=== PATIENT | male | born 1970 | race Caucasian/White ===

== ENCOUNTER 2017-10-18 22:07 | Inpatient (IN) | payer BC, OTHER ==
[~2017-10-18] VITALS: Ht 193 cm; Wt 118.2 kg
[2017-10-18] MEDS ORDERED: SODIUM CHLORIDE 0.9% 1000ML 1,000 ML IV SCH (22:14)
--- NOTE | 2017-10-18 22:28 | DIAGNOSTIC IMAGING REPORT ---
CT OF THE HEAD WITHOUT CONTRAST CLINICAL HISTORY: Stroke COMPARISON STUDY: No previous studies for comparison. CT DOSE: 1565.49 mGycm TECHNIQUE: Helical axial images of the head were obtained without IV contrast. Automated exposure control was utilized for the study. A dose lowering technique was utilized adhering to the principles of ALARA. FINDINGS: No acute intracranial hemorrhage, midline shift or mass effect is present. Ventricular system is normal. Basilar cisterns are patent. There are no extra-axial collections. Parr-white differentiation is maintained. There are no findings to suggest acute dural sinus thrombosis or acute territorial infarct. There are a few possible subtle white matter hypodensities. No calvarial abnormalities are present. Visualized portions of the sinuses and mastoid air cells are clear. IMPRESSION: 1. No acute intracranial findings. 2. A few small nonspecific white matter hypodensities. Electronically signed by: Ronnie Goddard M.D. 10/18/2017 10:27 PM Dictated Date/Time: 10/18/2017 10:24 PM
[2017-10-18 22:46] LABS: BASO % 0.3 %; BASO ABS # 0.04 K/uL (0-0.2); EOS % 1.1 %; EOS ABS # 0.14 K/uL (0-0.5); HEMATOCRIT 43.3 % (42-52); HEMOGLOBIN 15.3 g/dL (14.0-18.0); IG# 0.05 K/uL (0.00-0.02); LYMPH % 13.1 %; LYMPH ABS # 1.71 K/uL (1.2-3.4); MEAN CELL VOLUME 89.3 fL (80-100); MEAN CORPUSCULAR HEMOGLOBIN 31.5 pg (25-34); MEAN CORPUSCULAR HGB CONC 35.3 g/dl (32-36); MEAN PLATELET VOLUME 9.7 fL (7.4-10.4); MONO % 8.2 %; MONO ABS # 1.07 K/uL (0.11-0.59); NEUT % 76.9 %; NEUT ABS # 10.05 K/uL (1.4-6.5); PLATELET COUNT 263 K/uL (130-400); RED CELL DISTRIBUTION WIDTH CV 12.5 % (11.5-14.5); RED CELL DISTRIBUTION WIDTH SD 39.9 fL (36.4-46.3); WHITE BLOOD COUNT 13.06 K/uL (4.8-10.8)
[2017-10-18 22:57] LABS: PTT PATIENT 25.7 SECONDS (21.0-31.0)
[2017-10-18 23:08] LABS: BLOOD UREA NITROGEN 13 mg/dl (7-18); CALCIUM 8.9 mg/dl (8.5-10.1); CARBON DIOXIDE 25 mmol/L (21-32); CREATININE 0.96 mg/dl (0.60-1.40); GLUCOSE 138 mg/dl (70-99); POTASSIUM 3.4 mmol/L (3.5-5.1); SODIUM 139 mmol/L (136-145)
[2017-10-18] MEDS ORDERED: ASPIRIN 81 MG CHEW PO STA (23:09)
[2017-10-18 23:13] LABS: CKMB < 0.5 ng/ml (0.5-3.6)
[2017-10-18] MEDS ORDERED: MONT1TAB3 PO (23:40)
[2017-10-18] MEDS ORDERED: ATOR10TA82 PO (23:40)
[2017-10-18] MEDS ORDERED: CHOL1000 PO (23:41)
[2017-10-18] MEDS ORDERED: BIOF500T PO (23:41)
[2017-10-18] MEDS ORDERED: COEN75CA PO (23:42)
[2017-10-18] MEDS ORDERED: CLR10 PO (23:42)
[2017-10-18] MEDS ORDERED: ASPI81TA28 PO (23:42)
[2017-10-18] MEDS ORDERED: B-COTAB18 PO (23:42)
[2017-10-18] MEDS ORDERED: NIAC500T11 PO (23:42)
[2017-10-19] VITALS (10 sets, daily range): BP systolic 128–167; BP diastolic 11–110; PULSE 75–93; TEMP 36.5–37.3; O2SAT 94–97; Ht 193 cm; Wt 118.2 kg
[2017-10-19] MEDS ORDERED: ACETAMINOPHEN 325 MG TAB PO PRN (00:15)
[2017-10-19] MEDS ORDERED: ONDANSETRON INJ 2 MG/ML 2 ML VIAL IV PRN (00:15)
[2017-10-19] MEDS ORDERED: ALUMINUM/MAGNESIUM/SIMETH (MAALOX MAX) 30 ML UDC PO PRN (00:15)
[2017-10-19] MEDS ORDERED: ZOLPIDEM TARTRATE 5 MG TAB PO PRN (00:15)
[2017-10-19] MEDS ORDERED: NITROGLYCERIN 0.4 MG SL PER TAB CHARGE SL PRN (00:15)
[2017-10-19] MEDS ORDERED: MAGNESIUM HYDROXIDE SUSP 30 ML UDC PO PRN (00:15)
[2017-10-19] MEDS ORDERED: POLYETHYLENE (MIRALAX) 17 GM PACK PO PRN (00:15)
[2017-10-19] MEDS ORDERED: PHARMACIST DISCHARGE MED REC CONSULT PRN (00:15)
[2017-10-19] MEDS ORDERED: CLOPIDOGREL BISULFATE 75 MG TAB PO STA (00:31)
[2017-10-19] MEDS ORDERED: OPTIRAY 320 IV PRN (00:45)
[2017-10-19] MEDS ORDERED: LORAZEPAM 2 MG/ML 1 ML VIAL IV PRN ×3 (00:45→10:30)
--- NOTE | 2017-10-19 00:46 | History and Physical ---
History & Physical Date & Time of Service: Oct 19, 2017 at 00:14 Chief Complaint: Stroke Alert Primary Care Physician: Aleksey Dos Santos M.D. History of Present Illness Source: patient, family 47M with a PMHx of HLD and HTN and a FMHx of stroke and afib p/w a 15 minute episode of aphagia & right arm and right face/mouth paralysis that was witnessed and confirmed by his who is sitting at bedside in the ER. Patient had these acute symptoms in the setting of right facial chills/heat for the past two weeks. Symptoms spontaneously resolved after 15 min after the patient vigorously shook his right arm with his left arm. Patient has been getting right sided facial flushing/ chills for the past two weeks - mostly at night when he is resting. Pt also has been complaining of SOB on exertion over the past two weeks. Pt notes that he gets extreme clausterphobia and cannot sit still in an MRI without extreme sedation. PMHx: HLD (Lipitor & ASA x 7 years), measure BP at home to be 140/90 on average. FMHX: GF of a stroke and DE in his 50s, dad has Afib. 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 - Drink 1 beer per day ( in room states that it isn't more than that). ROS: Denies any recent tick bites. Past Medical/Surgical History Medical Problems: (1) TIA (transient ischemic attack) Family History Family history of premature ASCVD in 2 family members, including father. Social History Smoking Status: Never Smoker Smokeless Tobacco Use: No Alcohol Use: none Drug Use: none Occupational Status: employed Immunizations History of Influenza Vaccine: Unknown History of Tetanus Vaccine?: Unknown History of Pneumococcal: Unknown History of Hepatitis B Vaccine: Unknown (archana) Allergies Coded Allergies: Sulfa Antibiotics (Verified Allergy, Intermediate, RASH, 10/18/17) Home Medications Scheduled Aspirin (Aspirin Ec), 81 MG PO DAILY Atorvastatin (Lipitor), 10 MG PO DAILY B-Complex Vitamins (Vitamin B Complex), 1 TAB PO DAILY Bioflavonoid Products (Aditi-C), 1 TAB PO DAILY Cholecalciferol (Vitamin D3), 1 TAB PO DAILY Coenzyme Q10 (Ubidecarenone) (Co Q-10), 1 CAP PO DAILY Loratadine (Claritin), 10 MG PO DAILY Montelukast Sodium (Singulair), 10 MG PO DAILY Niacin (Niacin), 2 TABS PO DAILY Review of Systems Constitutional: No fever, No chills, No weight loss, No weakness Respiratory: No cough, No sputum, No wheezing, No shortness of breath, No dyspnea on exertion Cardiovascular: No chest pain Abdomen: No pain, No nausea, No vomiting, No diarrhea, No constipation Musculoskeletal: No joint pain Genitourinary - Male: No hematuria Neurologic: No memory loss Psychiatric: No depression symptoms Endocrine: No fatigue Integumentary: No rash Physical Exam Vital Signs Date Time Temp Pulse Resp B/P (MAP) Pulse Ox O2 Delivery O2 Flow Rate FiO2 10/18/17 23:15 83 10/18/17 23:14 89 18 152/97 95 Room Air 10/18/17 22:42 89 20 164/107 97 Room Air 10/18/17 22:33 94 10/18/17 22:32 87 15 163/109 97 Room Air 10/18/17 22:27 98 Room Air 10/18/17 22:15 37.2 85 15 163/109 98 Room Air General Appearance: WD/WN, no apparent distress, + obese Head: normocephalic, atraumatic Eyes: normal inspection, PERRL, EOMI ENT: normal ENT inspection, TMs normal Neck: supple Respiratory/Chest: chest non-tender, lungs clear, normal breath sounds, no respiratory distress, no accessory muscle use Cardiovascular: regular rate, rhythm, no edema, no gallop, no JVD, no murmur, normal peripheral pulses Abdomen/GI: normal bowel sounds, non tender, soft, no organomegaly, no pulsatile mass Back: normal inspection, no CVA tenderness Extremities/Musculoskelatal: normal inspection, normal capillary refill Neurologic/Psych: 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, no motor/sensory deficits, alert, normal mood/affect, normal reflexes, oriented x 3 Skin: warm/dry, no rash Diagnostics Laboratory Results Results Past 24 Hours Test 10/18/17 21:54 10/19/17 00:03 Range/Units White Blood Count 13.06 4.8-10.8 K/uL Red Blood Count 4.85 4.7-6.1 M/uL Hemoglobin 15.3 14.0-18.0 g/dL Hematocrit 43.3 42-52 % Mean Corpuscular Volume 89.3 80-100 fL Mean Corpuscular Hemoglobin 31.5 25-34 pg Mean Corpuscular Hemoglobin Concent 35.3 32-36 g/dl Platelet Count 263 130-400 K/uL Mean Platelet Volume 9.7 7.4-10.4 fL Neutrophils (%) (Auto) 76.9 % Lymphocytes (%) (Auto) 13.1 % Monocytes (%) (Auto) 8.2 % Eosinophils (%) (Auto) 1.1 % Basophils (%) (Auto) 0.3 % Neutrophils # (Auto) 10.05 1.4-6.5 K/uL Lymphocytes # (Auto) 1.71 1.2-3.4 K/uL Monocytes # (Auto) 1.07 0.11-0.59 K/uL Eosinophils # (Auto) 0.14 0-0.5 K/uL Basophils # (Auto) 0.04 0-0.2 K/uL RDW Standard Deviation 39.9 36.4-46.3 fL RDW Coefficient of Variation 12.5 11.5-14.5 % Immature Granulocyte % (Auto) 0.4 % Immature Granulocyte # (Auto) 0.05 0.00-0.02 K/uL Prothrombin Time 10.6 9.0-12.0 SECONDS Prothromb Time International Ratio 1.0 0.9-1.1 Activated Partial Thromboplast Time 25.7 21.0-31.0 SECONDS Partial Thromboplastin Ratio 1.0 Sodium Level 139 136-145 mmol/L Potassium Level 3.4 3.5-5.1 mmol/L Chloride Level 103 98-107 mmol/L Carbon Dioxide Level 25 21-32 mmol/L Anion Gap 10.0 3-11 mmol/L Blood Urea Nitrogen 13 7-18 mg/dl Creatinine 0.96 0.60-1.40 mg/dl Est Creatinine Clear Calc Drug Dose 137.4 ml/min Estimated GFR () 109.4 Estimated GFR (Non- 94.4 BUN/Creatinine Ratio 13.1 10-20 Random Glucose 138 70-99 mg/dl Calcium Level 8.9 8.5-10.1 mg/dl Magnesium Level 2.1 1.8-2.4 mg/dl Total Creatine Kinase 57 39-308 U/L Creatine Kinase MB < 0.5 0.5-3.6 ng/ml Creatine Kinase MB Ratio 0-3.0 Troponin I < 0.015 0-0.045 ng/ml Diagnostic Radiology CT OF THE HEAD WITHOUT CONTRAST CLINICAL HISTORY: Stroke COMPARISON STUDY: No previous studies for comparison. CT DOSE: 1565.49 mGycm TECHNIQUE: Helical axial images of the head were obtained without IV contrast. Automated exposure control was utilized for the study. A dose lowering technique was utilized adhering to the principles of ALARA. FINDINGS: No acute intracranial hemorrhage, midline shift or mass effect is present. Ventricular system is normal. Basilar cisterns are patent. There are no extra-axial collections. Parr-white differentiation is maintained. There are no findings to suggest acute dural sinus thrombosis or acute territorial infarct. There are a few possible subtle white matter hypodensities. No calvarial abnormalities are present. Visualized portions of the sinuses and mastoid air cells are clear. IMPRESSION: 1. No acute intracranial findings. 2. A few small nonspecific white matter hypodensities. Impression Assessment and Plan 47M with a PMHx of HLD and HTN and a FMHx of stroke and afib p/w a 15 minute episode of aphasia & right arm and right face/mouth paralysis that was witnessed by his . Symptoms resolved by the time pt was in the ER. Admitted for TIA. TIA Symptoms have resolved. Per Protocol, Neurology consulted. Q4 Neuro checks. Speech eval and treat. Pt has been on ASA daily, will switch to daily Plavix. Pt cannot tolerate MRI scans, will get CT and CTA head and neck. Ativan 0.5mg IV PRN for sedation. Echocardiogram. Stroke education as per protocol. Lipid Panel and HBA1C in the AM. Continue with daily Lipitor 10mg QAM. (consider titrating upwards) Per conversation with Dr. Reid - will order Hypercoagulable workup based on pt's family history of early stroke. Will also get Lyme Titers. Elevated WBCs (Neutrophil Predominance) Unknown etiology, will monitor, likely reactive. Home Meds c/w Loratidine and Singulair QHS. DVT Proph: SCDs. Diet: Heart Healthy Dispo - Lives with , will order PT and OT per stroke protocol. Full Code Attending addendum: I have physically seen this patient, have supervised the medical residents activities, and agree with the H&P unless as otherwise noted. Assessment and Plan: TIA with symptoms resolved after 15 minutes-- The patient will be admitted to telemetry for serial cardiac enzymes, serial EKG's, cardiac rhythm monitoring and a 2-D echocardiogram with Dopplers. Order MRI of brain without contrast.. Patient is unable to tolerate significant amount of time in the MRI unit. CT angiography of head and neck. Patient has been taking aspirin 81 mg daily, and was given 324 mg chewable by the ED. Would instead change to clopidogrel 75 mg daily, with first dose tonight. Arterial hypercoagulable workup. Neurologic checks per protocol. Check a fasting lipid profile and hemoglobin A1c. Advanced Directives Existing Advance Directive: No Existing Living Will: No Existing Power of Medical Office Scheduler: No Resuscitation Status VTE Prophylaxis Will order VTE Prophylaxis: Yes Social Service Consult None Apply Resident Involvement: Resident Care Provided Care Provided: Adult Hospital Medicine
--- NOTE | 2017-10-19 00:49 | EMERGENCY ROOM VISIT NOTE ---
History Report prepared by Dariela: Jae Ramos Under the Supervision of: Dr. Matthew Pollard M.D. First contact with patient: 22:07 Chief Complaint: STROKE SYMPTOMS Stated Complaint: STROKE ALERT History of Present Illness The patient is a 47 year old male who presents to the Emergency Room for concerns over stroke-like symptoms that began 2 hours ago. Per the patient's the patient was sitting down watching a sporting event when he began to develop difficulty speaking and numbness in his right arm. The patient, who is able to communicate freely upon arrival, states that the numbness was "the worst he has ever experienced." Initially he was unsure if he was going to be able to walk down the steps secondary to weakness on his left side. The patient believes that his symptoms lasted around 5 minutes before spontaneously resolving. The patient feels back to baseline at this time. He continued to mention that for the past 2.5 weeks he has been experiencing fevers and chills. 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 A total of ten systems were reviewed and were otherwise negative. Past Medical & Surgical Medical Problems: (1) Hypertension (2) TIA (transient ischemic attack) Hypertension Family History Stroke Social History Marital Status: Housing Status: lives with significant other Current/Historical Medications Scheduled Aspirin (Aspirin Ec), 81 MG PO DAILY Atorvastatin (Lipitor), 10 MG PO DAILY B-Complex Vitamins (Vitamin B Complex), 1 TAB PO DAILY Bioflavonoid Products (Aditi-C), 1 TAB PO DAILY Cholecalciferol (Vitamin D3), 1 TAB PO DAILY Coenzyme Q10 (Ubidecarenone) (Co Q-10), 1 CAP PO DAILY Loratadine (Claritin), 10 MG PO DAILY Montelukast Sodium (Singulair), 10 MG PO DAILY Niacin (Niacin), 2 TABS PO DAILY Allergies Coded Allergies: Sulfa Antibiotics (Verified Allergy, Intermediate, RASH, 10/18/17) Physical Exam Vital Signs Date Time Temp Pulse Resp B/P (MAP) Pulse Ox O2 Delivery O2 Flow Rate FiO2 10/19/17 00:40 81 18 148/111 95 4/3/18 00:39 81 18 148/111 95 Room Air 10/18/17 23:15 83 10/18/17 23:14 89 18 152/97 95 Room Air 10/18/17 22:42 89 20 164/107 97 Room Air 10/18/17 22:33 94 10/18/17 22:32 87 15 163/109 97 Room Air 10/18/17 22:27 98 Room Air 10/18/17 22:15 37.2 85 15 163/109 98 Room Air Physical Exam Physical Exam GENERAL: HE is oriented to person, place, and time. He appears well-developed and well-nourished. He does not appear distressed. ____ HENT: Exam performed. Head: Normocephalic and atraumatic. Right Ear: External ear normal. No mastoid tenderness. Left Ear: External ear normal. No mastoid tenderness. Mouth/Throat: The oropharynx is clear and moist. No trismus in the jaw. No dental abscesses or uvula swelling. No oropharyngeal exudate or tonsillar abscesses. ____ EYES: Conjunctivae and EOM are normal. Pupils are equal, round, and reactive to light. Right eye exhibits no discharge. Left eye exhibits no discharge. No scleral icterus. ____ NECK: Normal range of motion. Neck supple. No JVD present. No spinous process tenderness present. No carotid bruit present. No rigidity. No tracheal deviation and normal range of motion present. No Brudzinski's sign and no Kernig 's sign noted. ____ CV: Normal rate, regular rhythm, normal heart sounds and intact distal pulses. There is no peripheral edema. Palpable radial pulses bue. ____ PULM/CHEST: Effort normal and breath sounds normal. No respiratory distress. No stridor. He has no wheezes. He has no rales. Chest Wall: He exhibits no tenderness. ____ ABD: The abdomen is soft. Bowel sounds are normal. He has no distension. No mass is present. There is no tenderness. There is no rebound, no guarding, no Kaplan's sign and no tenderness at McBurney's point. Rovsig negative MUSC/SKEL: Normal range of motion. There is no peripheral edema, tenderness or deformity. LYMPH: No cervical adenopathy. ____ NEURO: He is alert and oriented to person, place, and time. He has normal strength. No cranial nerve deficit or sensory deficit. Coordination and gait normal. GCS eye subscore is 4. GCS verbal subscore is 5. GCS motor subscore is 6. Cerebellar tests wnl. NIHSS: 0 ____ SKIN: Skin is warm and dry. He is not diaphoretic. ____ PSYCH: He has a normal mood and affect. His behavior is normal. Judgment and thought content normal. Medical Decision & Procedures ER Provider Diagnostic Interpretation: Radiology results as stated below per my review and radiologist interpretation: CT OF THE HEAD WITHOUT CONTRAST CLINICAL HISTORY: Stroke COMPARISON STUDY: No previous studies for comparison. CT DOSE: 1565.49 mGycm TECHNIQUE: Helical axial images of the head were obtained without IV contrast. Automated exposure control was utilized for the study. A dose lowering technique was utilized adhering to the principles of ALARA. FINDINGS: No acute intracranial hemorrhage, midline shift or mass effect is present. Ventricular system is normal. Basilar cisterns are patent. There are no extra-axial collections. Parr-white differentiation is maintained. There are no findings to suggest acute dural sinus thrombosis or acute territorial infarct. There are a few possible subtle white matter hypodensities. No calvarial abnormalities are present. Visualized portions of the sinuses and mastoid air cells are clear. IMPRESSION: 1. No acute intracranial findings. 2. A few small nonspecific white matter hypodensities. Electronically signed by: Ronnie Goddard M.D. 10/18/2017 10:27 PM Dictated Date/Time: 10/18/2017 10:24 PM Laboratory Results 10/18/17 21:54 Red Blood Count 4.85, Mean Corpuscular Volume 89.3, Mean Corpuscular Hemoglobin 31.5, Mean Corpuscular Hemoglobin Concent 35.3, Mean Platelet Volume 9.7, Neutrophils (%) (Auto) 76.9, Lymphocytes (%) (Auto) 13.1, Monocytes (%) (Auto) 8.2, Eosinophils (%) (Auto) 1.1, Basophils (%) (Auto) 0.3, Neutrophils # (Auto) 10.05, Lymphocytes # (Auto) 1.71, Monocytes # (Auto) 1.07, Eosinophils # (Auto) 0.14, Basophils # (Auto) 0.04 10/18/17 21:54 Test 10/18/17 21:54 10/19/17 00:24 10/19/17 00:40 White Blood Count 13.06 K/uL (4.8-10.8) Red Blood Count 4.85 M/uL (4.7-6.1) Hemoglobin 15.3 g/dL (14.0-18.0) Hematocrit 43.3 % (42-52) Mean Corpuscular Volume 89.3 fL (80-100) Mean Corpuscular Hemoglobin 31.5 pg (25-34) Mean Corpuscular Hemoglobin Concent 35.3 g/dl (32-36) Platelet Count 263 K/uL (130-400) Mean Platelet Volume 9.7 fL (7.4-10.4) Neutrophils (%) (Auto) 76.9 % Lymphocytes (%) (Auto) 13.1 % Monocytes (%) (Auto) 8.2 % Eosinophils (%) (Auto) 1.1 % Basophils (%) (Auto) 0.3 % Neutrophils # (Auto) 10.05 K/uL (1.4-6.5) Lymphocytes # (Auto) 1.71 K/uL (1.2-3.4) Monocytes # (Auto) 1.07 K/uL (0.11-0.59) Eosinophils # (Auto) 0.14 K/uL (0-0.5) Basophils # (Auto) 0.04 K/uL (0-0.2) RDW Standard Deviation 39.9 fL (36.4-46.3) RDW Coefficient of Variation 12.5 % (11.5-14.5) Immature Granulocyte % (Auto) 0.4 % Immature Granulocyte # (Auto) 0.05 K/uL (0.00-0.02) Prothrombin Time 10.6 SECONDS (9.0-12.0) Prothromb Time International Ratio 1.0 (0.9-1.1) Activated Partial Thromboplast Time 25.7 SECONDS (21.0-31.0) Partial Thromboplastin Ratio 1.0 Anion Gap 10.0 mmol/L (3-11) Est Creatinine Clear Calc Drug Dose 137.4 ml/min Estimated GFR () 109.4 Estimated GFR (Non- 94.4 BUN/Creatinine Ratio 13.1 (10-20) Calcium Level 8.9 mg/dl (8.5-10.1) Magnesium Level 2.1 mg/dl (1.8-2.4) Total Creatine Kinase 57 U/L (39-308) Creatine Kinase MB < 0.5 ng/ml (0.5-3.6) Creatine Kinase MB Ratio (0-3.0) Troponin I < 0.015 ng/ml (0-0.045) Laboratory results reviewed by me Medications Administered Medications (Trade) Dose Ordered Sig/Suraj Route Start Time Stop Time Status Last Admin Dose Admin Sodium Chloride 1,000 ml @ 50 mls/hr Q20H IV 10/18/17 22:14 11/17/17 22:13 10/18/17 23:02 50 MLS/HR Aspirin (Aspirin Chew) 324 mg NOW STAT PO 10/18/17 23:09 10/18/17 23:10 DC 10/18/17 23:13 324 MG Clopidogrel Bisulfate (plAVix TAB) 75 mg NOW STAT PO 10/19/17 00:31 10/19/17 00:32 DC 10/19/17 00:45 75 MG ECG Per My Interpretation Indication: altered mental status, weakness, other (Stroke-like ) Rate (beats per minute): 88 Rhythm: sinus rhythm Findings: other ([place], QRS, QTC within normal limits. no ASHLI/STD) Change: REPEAT EKG SHOWS: sinus rhythm at 89 bpm. QRS, QTC, [place] within normal limits, no ASHLI/STD ED Course 2219: Call was taken from the field that expressed that the patient was resting 2 hours ago when he developed difficulty speaking and right sided weakness and numbness. His symptoms have now improved per EMS. Given the aquity of his symptoms and the fact that he was still in the window for TPA, a CODE STROKE ALERT was called and initiated in the field. The patient was taken straight to CT scan upon arrival to the department. His Blood Glucose was stable in the field per EMS. 2225: The patient was evaluated in room B1. A complete history and physical exam was performed. His NIH stroke scale is 0 at this time. 2259: I consulted Neurology about the patient at this time. I discussed with the TELESTROKE Physician Dr. Perry. He states that since the patient's symptoms are resolved, and two NIH stroke scales of 0 he does not need the patient feels to be evaluated via TELESTROKE. He suggests giving Aspirin 324 mg and ordering MRI/MRA in the morning along with an Echo. He suggests admitting to the hospitalist service. 2309: Ordered Aspirin 324 mg PO. 2335: I discussed the case with Dr. Rohan HEADLEY Hospitalist. He will evaluate the patient for further treatment. Medical Decision 2218: Call was taken from the field that expressed that the patient was resting 2 hours ago when he developed difficulty speaking and right sided weakness and numbness. His symptoms have now improved per EMS. Given the aquity of his symptoms and the fact that he was still in the window for TPA, a CODE STROKE ALERT was called and initiated in the field. The patient was taken straight to CT scan upon arrival to the department. His Blood Glucose was stable in the field per EMS. 5: The patient was evaluated in room B1. A complete history and physical exam was performed. His NIH stroke scale is 0 at this time. 225: I consulted Neurology about the patient at this time. I discussed with the TELESTROKE Physician Dr. Perry. He states that since the patient's symptoms are resolved, and two NIH stroke scales of 0 he does not need the patient feels to be evaluated via TELESTROKE. He suggests giving Aspirin 324 mg and ordering MRI/MRA in the morning along with an Echo. He suggests admitting to the hospitalist service. 2309: Ordered Aspirin 324 mg PO. 2335: I discussed the case with Dr. Rohan HEADLEY Hospitalist. He will evaluate the patient for further treatment. Medication Reconcilliation Current Medication List: was personally reviewed by me Blood Pressure Screening Patient's blood pressure: Elevated blood pressure Referred to hospitalist. Consults Time Called: 2314 Consulting Physician: Dr. Rohan HEADLEY Hospitalist Returned Call: [phone] I discussed the case with Dr. Rohan HEADLEY Hospitalist. He will evaluate the patient for further treatment. Additional Consults: Time Called: 2258 Consulted Physician: Dr. Perry - TELESTROKE NEUROLOGY Returned Call: [phone] Additional Comments: I consulted Neurology about the patient at this time. I discussed with the TELESTROKE Physician Dr. Perry. He states that since the patient's symptoms are resolved, and two NIH stroke scales of 0 he does not need the patient feels to be evaluated via TELESTROKE. He suggests giving Aspirin 324 mg and ordering MRI/ MRA in the morning along with an Echo. He suggests admitting to the hospitalist service. Impression Primary Impression: TIA (transient ischemic attack) Critical Care I have personally spent greater than 61 minutes of critical care time in the direct management of this patient. This includes bedside care, interpretation of diagnostic studies, and testing, discussion with consultants, patient, and family members, and other required patient management activities. This 61 minutes is in excess of all separately billable procedures. Scribe Attestation The scribe's documentation has been prepared under my direction and personally reviewed by me in its entirety. I confirm that the note above accurately reflects all work, treatment, procedures, and medical decision making performed by me. The chart was completed utilizing [email or web address] Speech voice recognition software. Grammatical errors, random word insertions, pronoun errors, and incomplete sentences are an occasional consequence of this system due to software limitations, ambient noise, and hardware issues. Any formal questions or concerns about the content, text, or information contained within the body of this dictation should be directly addressed to the physician for clarification. Departure Information Dispostion Being Evaluated By Hospitalist Referrals No Doctor, Assigned (PCP) Patient Instructions My [facility] Problem Qualifiers Primary Impression: TIA (transient ischemic attack) Transient cerebral ischemia type: unspecified Qualified Codes: G45.9 - Transient cerebral ischemic attack, unspecified
[2017-10-19] MEDS ORDERED: IV FLUIDS COMPLETED PRN (04:30)
--- NOTE | 2017-10-19 06:45 | DIAGNOSTIC IMAGING REPORT ---
CT HEAD ANGIO WITH CONTRAST CLINICAL HISTORY: Dizziness, right-sided numbness, slurred speech. TECHNIQUE: CT angiography of the head was performed in a dynamic helical fashion during intravenous administration of 119 cc of Optiray 320. A dose lowering technique was utilized adhering to the principles of ALARA. MIP imaging was performed CT DOSE: COMPARISON STUDY: Noncontrast head CT performed October 18, 2017 FINDINGS: There are no lesion suspicious for aneurysm. There are no major intracranial branch occlusions. The dural venous sinuses appear patent. There is max or sinus mucosal thickening. IMPRESSION: Normal study. Electronically signed by: Trey Villarreal M.D. 10/19/2017 6:43 AM Dictated Date/Time: 10/19/2017 6:41 AM
[2017-10-19 07:15] LABS: HEMOGLOBIN A1C 5.8 % (4.5-5.6)
[2017-10-19 07:33] LABS: BASO % 0.4 %; BASO ABS # 0.04 K/uL (0-0.2); EOS ABS # 0.11 K/uL (0-0.5); HEMATOCRIT 40.5 % (42-52); HEMOGLOBIN 14.1 g/dL (14.0-18.0); IG# 0.05 K/uL (0.00-0.02); LYMPH % 10.3 %; LYMPH ABS # 1.15 K/uL (1.2-3.4); MEAN CELL VOLUME 89.2 fL (80-100); MEAN CORPUSCULAR HEMOGLOBIN 31.1 pg (25-34); MEAN CORPUSCULAR HGB CONC 34.8 g/dl (32-36); MEAN PLATELET VOLUME 9.5 fL (7.4-10.4); MONO % 7.6 %; MONO ABS # 0.85 K/uL (0.11-0.59); NEUT % 80.3 %; NEUT ABS # 8.92 K/uL (1.4-6.5); PLATELET COUNT 234 K/uL (130-400); RED CELL DISTRIBUTION WIDTH CV 12.5 % (11.5-14.5); WHITE BLOOD COUNT 11.12 K/uL (4.8-10.8)
[2017-10-19 07:48] LABS: CALCIUM 8.7 mg/dl (8.5-10.1); CREATININE 0.83 mg/dl (0.60-1.40); POTASSIUM 3.8 mmol/L (3.5-5.1)
--- NOTE | 2017-10-19 07:53 | DIAGNOSTIC IMAGING REPORT ---
CT ANGIOGRAM OF THE NECK CLINICAL HISTORY: Dizziness. Right-sided numbness. Slurred speech. COMPARISON STUDY: No priors. TECHNIQUE: Following the IV administration of 119 of Optiray 320, CT angiogram of the neck was performed from the aortic arch to the skull base. Images are reviewed in the axial, sagittal, and coronal planes. 3-D MIPS images are created and assessed. IV contrast was administered without complication. All measurements were calculated based on NASCET criteria. A dose lowering technique was utilized adhering to the principles of ALARA. The examination is modestly degraded by motion artifact. CT DOSE: 604.50 mGy.cm FINDINGS: Thoracic aorta: Visualized portions of the thoracic aorta are normal in caliber. The aortic arch demonstrates standard 3-vessel anatomy. Right carotid arterial system: The right common carotid artery is widely patent, as are the right internal and external carotid arteries. Minimal atherosclerotic calcification is noted in the carotid bulb. Left carotid arterial system: The left common carotid artery is widely patent, as are the left internal and external carotid arteries. Vertebral arteries: The vertebral arteries are widely patent bilaterally and codominant. Intracranial vasculature: The visualized intracranial vessels at the skull base are patent. See report of CT angiogram of the brain performed concurrently for detailed intracranial findings. Subclavian arteries: Widely patent bilaterally. Jugular veins: Widely patent bilaterally. Brain parenchyma: The visualized brain parenchyma the skull base is within normal limits. Lung apices: Partially visualized upper lobe lung parenchyma appears clear. Soft tissues: The visualized pharyngeal soft tissues are normal in appearance noting angiographic phase technique. The oropharyngeal airway appears widely patent. The salivary and thyroid glands are normal in appearance. There is left supraclavicular lymphadenopathy. A node seen on image #140 measures 2.3 x 2.0 cm. Mildly enlarged mediastinal nodes are partially visualized. Prevascular nodes measure up to 1.1 cm in short axis. Skeletal structures: The visualized calvarium at the skull base appears intact. The imaged cervical spine is within normal limits. Sinuses and mastoids: Mild mucosal thickening is seen within the maxillary antra. A retention cyst is noted on the left. The remaining paranasal sinuses are clear. The mastoid air cells are well pneumatized. IMPRESSION: 1. Unremarkable CT angiogram of the neck. 2. There are pathologically enlarged left supraclavicular lymph nodes. Neoplasm is the diagnosis of exclusion. Electronically signed by: George Hrenandez M.D. 10/19/2017 7:52 AM Dictated Date/Time: 10/19/2017 7:46 AM
[2017-10-19] MEDS: ATORVASTATIN 10 MG TAB PO SCH (08:18)
[2017-10-19] MEDS: CLOPIDOGREL BISULFATE 75 MG TAB PO SCH (08:18)
[2017-10-19] MEDS: MONTELUKAST SOD 10 MG TAB PO SCH (08:18)
[2017-10-19] MEDS: LORATADINE 10 MG TAB PO SCH (08:18)
[2017-10-19] MEDS ORDERED: ATORVASTATIN 10 MG TAB PO SCH (09:00)
[2017-10-19] MEDS ORDERED: ASPIRIN 81 MG ECTAB PO SCH (09:00)
--- NOTE | 2017-10-19 09:15 | Neurology Consultation ---
Neurology Consultation Date of Consultation: Oct 19, 2017. Attending Physician: Hernan Piña D.O. Primary Care Physician: Aleksey Dos Santos M.D. Reason for Consultation: TIA History of Present Illness Source: patient, hospital records The patient is a 47-year-old male with a chief complaint of difficulty speaking with associated numbness and weakness of the right upper extremity that began acutely about 2 hours prior to arrival in the emergency department last night. He had been lying on the couch, on his right hand side for about 15 minutes. He recalls rolling onto his back and having an intense feeling of numbness and weakness affecting the right hand and arm. The arm was essentially paralyzed. He attempted to move the right arm with his left hand. The patient also indicates that he called out to his although his speech sounded markedly slurred. He does not recall having significant weakness of his legs. The symptoms persisted for about 5 minutes and resolved. He does not recall having similar symptoms in the past. However, patient reports that he has been experiencing intermittent fevers and chills for about the past 2 weeks. He has a history of chronic right shoulder pain and indicates that he had a corticosteroid shot to the right shoulder about 1 week ago. He has been experiencing some pain and stiffness in the shoulder since that time. Past medical history also notable for hypertension and hyperlipidemia. He has been taking a daily baby aspirin and Lipitor. I reviewed the images and radiologist' s interpretation of the CT of the head completed in the emergency department. There is no evidence of hemorrhage or other acute process. There are a few scattered white matter hypodensities. A CT angiogram of the head and neck are unremarkable. No evidence of vascular occlusion or dissection. An electrocardiogram reveals a sinus rhythm, 88 beats per minute. A transthoracic echocardiogram has been completed this morning, results are pending at this time. This patient's aspirin has been discontinued in favor of Plavix. Past Medical/Surgical History Medical Problems: (1) Hypertension Status: Chronic Family History Patient's father has atrial fibrillation. Social History Marital Status: Housing Status: lives with significant other Allergies Coded Allergies: Sulfa Antibiotics (Verified Allergy, Intermediate, RASH, 10/18/17) Current Inpatient Medications Current Inpatient Medications Medications (Trade) Dose Ordered Sig/Suraj Route Start Time Stop Time Status Last Admin Dose Admin Acetaminophen (Tylenol Tab) 650 mg Q4H PRN PO 10/19/17 00:15 11/18/17 00:14 Al Hydrox/Mg Hydrox/Simethicone (Maalox Max Susp) 15 ml Q4H PRN PO 10/19/17 00:15 11/18/17 00:14 Magnesium Hydroxide (Milk Of Magnesia Susp) 30 ml Q12H PRN PO 10/19/17 00:15 11/18/17 00:14 Zolpidem Tartrate (Ambien Tab) 5 mg HSZ PRN PO 10/19/17 00:15 11/18/17 00:14 Ondansetron HCl (Zofran Inj) 4 mg Q6H PRN IV 10/19/17 00:15 11/18/17 00:14 Nitroglycerin (Nitrostat Tab) 0.4 mg UD PRN SL 10/19/17 00:15 11/18/17 00:14 Polyethylene (Miralax Powder Packet) 17 gm DAILY PRN PO 10/19/17 00:15 11/18/17 00:14 Atorvastatin Calcium (Lipitor Tab) 10 mg QAM PO 10/19/17 09:00 11/18/17 08:59 10/19/17 08:18 10 MG Miscellaneous Information (Pharmacist Discharge Med Rec Consult) 1 ea UD PRN N/A 10/19/17 00:15 11/18/17 00:14 Loratadine (Claritin Tab) 10 mg DAILY PO 10/19/17 09:00 11/18/17 08:59 10/19/17 08:18 10 MG Montelukast Sodium (Singulair Tab) 10 mg DAILY PO 10/19/17 09:00 11/18/17 08:59 10/19/17 08:18 10 MG Clopidogrel Bisulfate (plAVix TAB) 75 mg QAM PO 10/19/17 09:00 11/18/17 08:59 10/19/17 08:18 75 MG Ioversol (Optiray 320) 100 ml UD PRN IV 10/19/17 00:45 10/23/17 00:44 Miscellaneous (Iv Fluids Completed) 1 ea PRN PRN N/A 10/19/17 04:30 10/19/18 04:29 Review of Systems Constitutional: Fevers and chills as per history of present illness. Eyes: No vision loss or diplopia ENT: No hearing loss or vertigo Cardiovascular: No chest pain or palpitations Respiratory: No coughing or shortness of breath Neurological: As per history of present illness Musculoskeletal: Shoulder pain as per history of present illness Psychiatric: No depression or anxiety Hematologic: No bruising or swollen glands A full 10 point review of systems was obtained from this patient with pertinent positives and negatives described in the history of present illness and otherwise listed above. All remaining systems were reviewed and are negative. Physical Exam Vital Signs (Past 24 Hrs): Date Time Temp Pulse Resp B/P (MAP) Pulse Ox O2 Delivery O2 Flow Rate FiO2 10/19/17 07:25 36.7 86 19 157/98 (117) 95 Room Air 10/19/17 04:04 36.8 81 17 131/85 (100) 96 Room Air 10/19/17 04:00 96 Room Air 10/19/17 02:15 36.9 75 19 141/92 (108) 96 Room Air 10/19/17 01:41 37.1 87 18 166/110 97 Room Air 10/19/17 01:15 37.1 87 18 167/108 (127) 97 Room Air 166/110 (128) 10/19/17 00:40 81 18 148/111 95 10/19/17 00:39 81 18 148/111 95 Room Air 10/18/17 23:15 83 10/18/17 23:14 89 18 152/97 95 Room Air 10/18/17 22:42 89 20 164/107 97 Room Air 10/18/17 22:33 94 10/18/17 22:32 87 15 163/109 97 Room Air 10/18/17 22:27 98 Room Air 10/18/17 22:15 37.2 85 15 163/109 98 Room Air The patient is a well-developed, well-nourished adult male. He is lying comfortably in bed. The patient is alert and fully oriented. Recent and remote memory intact. Attention and concentration normal. Patient exhibits a normal spontaneous speech pattern. He is able to name objects and repeat phrases. He exhibits an age-appropriate fund of knowledge a normal vocabulary. Visual jeter full to confrontation. Visual acuity normal. Pupils equal round reactive to light and accommodation. Eye movements normal. Facial sensation intact bilaterally. There is no facial droop or facial weakness. Hearing intact bilaterally. Palate elevates to midline. Shoulder shrug strength intact. Tongue protrudes to midline. Sensation intact to light touch, temperature, vibration, and proprioception for all 4 limbs. Deep tendon reflexes are intact and symmetrical for the arms and legs. Plantar responses downgoing bilaterally. There is no dysdiadochokinesia or dysmetria with finger- to-nose or heel to fang bilaterally. Ophthalmoscopic examination reveals normal -appearing optic discs and posterior segments. No papilledema or hemorrhages. Carotid pulses normal bilaterally, no bruits to auscultation. Gait and station normal. Patient exhibits normal muscle strength and tone for all 4 limbs. No atrophy. No abnormal movements observed. Laboratory Results Past 24 Hours: 10/19/17 06:11 Red Blood Count 4.54, Mean Corpuscular Volume 89.2, Mean Corpuscular Hemoglobin 31.1, Mean Corpuscular Hemoglobin Concent 34.8, Mean Platelet Volume 9.5, Neutrophils (%) (Auto) 80.3, Lymphocytes (%) (Auto) 10.3, Monocytes (%) (Auto) 7.6, Eosinophils (%) (Auto) 1.0, Basophils (%) (Auto) 0.4, Neutrophils # (Auto) 8.92, Lymphocytes # (Auto) 1.15, Monocytes # (Auto) 0.85, Eosinophils # (Auto) 0.11, Basophils # (Auto) 0.04 10/19/17 06:11 Test 10/18/17 21:54 10/18/17 22:28 10/19/17 00:24 10/19/17 06:11 Prothrombin Time 10.6 SECONDS (9.0-12.0) Prothromb Time International Ratio 1.0 (0.9-1.1) Activated Partial Thromboplast Time 25.7 SECONDS (21.0-31.0) Partial Thromboplastin Ratio 1.0 Magnesium Level 2.1 mg/dl (1.8-2.4) Total Creatine Kinase 57 U/L (39-308) Creatine Kinase MB < 0.5 ng/ml (0.5-3.6) Creatine Kinase MB Ratio (0-3.0) Lyme Disease IgG Antibody NEG (NEG) Lyme Disease IgM Antibody NEG (NEG) Bedside Prothrombin Time INR 1.0 (0.9-1.1) Bedside Glucose 178 mg/dl (70-99) Fibrinogen 242 mg/dl (184-400) Estimated Average Glucose 120 mg/dl Hemoglobin A1c 5.8 % (4.5-5.6) White Blood Count 11.12 K/uL (4.8-10.8) Red Blood Count 4.54 M/uL (4.7-6.1) Hemoglobin 14.1 g/dL (14.0-18.0) Hematocrit 40.5 % (42-52) Mean Corpuscular Volume 89.2 fL (80-100) Mean Corpuscular Hemoglobin 31.1 pg (25-34) Mean Corpuscular Hemoglobin Concent 34.8 g/dl (32-36) Platelet Count 234 K/uL (130-400) Mean Platelet Volume 9.5 fL (7.4-10.4) Neutrophils (%) (Auto) 80.3 % Lymphocytes (%) (Auto) 10.3 % Monocytes (%) (Auto) 7.6 % Eosinophils (%) (Auto) 1.0 % Basophils (%) (Auto) 0.4 % Neutrophils # (Auto) 8.92 K/uL (1.4-6.5) Lymphocytes # (Auto) 1.15 K/uL (1.2-3.4) Monocytes # (Auto) 0.85 K/uL (0.11-0.59) Eosinophils # (Auto) 0.11 K/uL (0-0.5) Basophils # (Auto) 0.04 K/uL (0-0.2) RDW Standard Deviation 40.0 fL (36.4-46.3) RDW Coefficient of Variation 12.5 % (11.5-14.5) Immature Granulocyte % (Auto) 0.4 % Immature Granulocyte # (Auto) 0.05 K/uL (0.00-0.02) Anion Gap 9.0 mmol/L (3-11) Est Creatinine Clear Calc Drug Dose 159.2 ml/min Estimated GFR () 122.3 Estimated GFR (Non- 105.5 BUN/Creatinine Ratio 14.3 (10-20) Calcium Level 8.7 mg/dl (8.5-10.1) Troponin I < 0.015 ng/ml (0-0.045) Impression This is a 47-year-old male who presents with acute, transient weakness and numbness of the right upper extremity with associated slurred speech. The symptoms would seem most consistent with a TIA localizing to the left cerebral hemisphere. The symptoms do occur in the context of subjective fevers and chills for the past 2 weeks as well as a corticosteroid injection to the right shoulder approximately 1 week ago. The relevance of these associations is undetermined although subacute bacterial endocarditis could be considered. The transthoracic echocardiogram report is pending. Typical stroke risk factors for this patient include a history of hyperlipidemia and hypertension. The differential diagnosis for this patient's presentation could also include transient compression to the brachial plexus related to lying on his couch on the right hand side or the less likely possibility of an episode of partial sleep paralysis. Plan Follow-up with the results of transthoracic echocardiography when available. Would obtain a transesophageal echocardiogram if the study is inconclusive. Agree with Plavix. Reorder brain MRI with and without contrast. Would recommend premedication with diazepam to address his claustrophobia. He does not appear to have any need for PT/OT/speech therapy. Please contact me if I may be of further assistance.
[2017-10-19] MEDS ORDERED: LORAZEPAM 2 MG/ML 1 ML VIAL IV STA (09:56)
[2017-10-19] MEDS ORDERED: GADAVIST IV PRN (12:45)
--- NOTE | 2017-10-19 13:02 | DIAGNOSTIC IMAGING REPORT ---
MRI OF THE BRAIN WITHOUT AND WITH IV CONTRAST CLINICAL HISTORY: Transient ischemic attack versus cerebrovascular accident. COMPARISON STUDY: Head CT October 18, 2017 and CTA of the head October 19, 2017. TECHNIQUE: Utilizing a 1.5 Olya magnet and dedicated coil, multiplanar, multiecho imaging of the brain was performed pre and postcontrast administration. IV administration of 12 mL of Gadavist contrast was uneventful. FINDINGS: There is a 1.2 cm focus of restricted diffusion within the posterior aspect of the left frontal lobe involving the precentral gyrus. There is minimal corresponding FLAIR signal abnormality. There is no mass effect or evidence for hemorrhagic conversion. A few equivocal punctate foci of restricted diffusion within the right frontoparietal region are likely artifactual. Ventricular system is normal. Basilar cisterns are patent. No chest wall collections are present. There is no intracranial mass or pathologic enhancement. Brain volume is normal. Calvarial signal is normal. A left maxillary mucous retention cyst is noted. IMPRESSION: 1. 1.2 cm focus of acute infarction within the posterior left frontal lobe, likely involving the precentral gyrus. No mass effect or hemorrhage. 2. A few equivocal additional foci of restricted diffusion within the right frontoparietal region. Additional punctate acute infarcts could appear similar although are considered less likely. Electronically signed by: Ronnie Goddard M.D. 10/19/2017 1:00 PM Dictated Date/Time: 10/19/2017 12:53 PM
--- NOTE | 2017-10-19 14:00 | ECHOCARDIOGRAM REPORT ---
*NOTICE TO RECEIVING [employer]Y This information is strictly Confidential and protected under [place] law. [place] law prohibits you from making any further disclosure of this information unless further disclosure is expressly permitted by the written consent of the person to whom it pertains or is authorized by law. A general authorization for the release of medical or other information is not sufficient for this purpose. Hospital accepts no responsibility if the information is made available to any other person, INCLUDING THE PATIENT. Interpretation Summary * Name: THUAN VILCHIS Study Date: 10/19/2017 07:16 AM BP: 131/85 mmHg * Patient Location: C.2T\S\S234\S\1 HR: 81 * : 1970 (M/d/yyyy) Gender: Male Height: 76 in * Age: 47 yrs Ethnicity: CA Weight: 269 lb * Ordering Physician: Wang Cronin * Referring Physician: Self, Referred * Performed By: Lelo Pickens RDCS * * Reason For Study: TIA * BSA: 2.5 m2 * -- Conclusions -- * Left ventricular systolic function is normal. * No regional wall motion abnormalities noted. * Ejection Fraction = 55-60%. * No obvious valvular vegetation. * No patent foramen ovale or atrial septal defect identified. Procedure Details * A complete two-dimensional transthoracic echocardiogram was performed (2D, M-mode, Doppler and color flow Doppler). * A saline contrast injection was performed to assess for cardiac shunting. * The injection was performed through an intravenous line in the left arm. * The attending nurse who injected the saline contrast was Sudha Morrissey RN. * A total of 20 cc of agitated saline was given. Left Ventricle * The left ventricle is normal in size. * There is normal left ventricular wall thickness. * Ejection Fraction = 55-60%. * Left ventricular systolic function is normal. * No regional wall motion abnormalities noted. Right Ventricle * The right ventricle is normal size. * The right ventricular systolic function is normal as assessed by tricuspid annular plane systolic excursion (TAPSE) (normal >1.5 cm). Atria * The left atrium is moderately dilated. * Right atrial size is normal. * Injection of contrast documented no interatrial shunt. Mitral Valve * The mitral valve anatomy is normal. * There is no vegetation seen on the mitral valve. * There is no mitral valve stenosis. * There is mild mitral regurgitation. Tricuspid Valve * The tricuspid valve anatomy is normal. * There is no tricuspid valve vegetation. * There is mild tricuspid regurgitation. Aortic Valve * The aortic valve is trileaflet. * The aortic valve opens well. * There is no aortic valvular vegetation. * No hemodynamically significant valvular aortic stenosis. * There is no significant aortic regurgitation. Pulmonic Valve * The pulmonary valve is not well seen, but the Doppler examination is normal without significant regurgitation or stenosis. Great Vessels * The aortic root is normal size. * The pulmonary artery is not well visualized, but is probably normal size. Pericardium/Pleural * There is no pericardial effusion. Great Vessels * Normal inferior vena cava size and collapsability with sniff indicates a normal right atrial pressure of 3 mmHg MMode 2D Measurements and Calculations IVSd 1.2 cm LVIDd 5.3 cm LVIDs 3.6 cm LVPWd 1.1 cm IVS/LVPW 1.0 FS 30.8 % EDV(Teich) 133.0 ml ESV(Teich) 56.0 ml EF(Teich) 57.9 % EDV(cubed) 145.6 ml ESV(cubed) 48.3 ml EF(cubed) 66.8 % LV mass(C)d 240.4 grams LV mass(C)dI 95.7 grams/m\S\2 SV(Teich) 77.0 ml SI(Teich) 30.7 ml/m\S\2 SV(cubed) 97.3 ml SI(cubed) 38.7 ml/m\S\2 Ao root diam 3.6 cm Ao root area 10.4 cm\S\2 ACS 2.7 cm LA dimension 3.6 cm asc Aorta Diam 3.3 cm LA/Ao 1.0 LVOT diam 2.0 cm LVOT area 3.3 cm\S\2 LVAd ap4 33.0 cm\S\2 LVLd ap4 8.0 cm EDV(MOD-sp4) 113.7 ml EDV(sp4-el) 115.4 ml LVAs ap4 20.4 cm\S\2 LVLs ap4 7.1 cm ESV(MOD-sp4) 49.7 ml ESV(sp4-el) 50.0 ml EF(MOD-sp4) 56.3 % EF(sp4-el) 56.6 % LVAd ap2 29.6 cm\S\2 LVLd ap2 7.3 cm EDV(MOD-sp2) 98.2 ml EDV(sp2-el) 102.8 ml LVAs ap2 17.4 cm\S\2 LVLs ap2 5.9 cm ESV(MOD-sp2) 42.7 ml ESV(sp2-el) 43.7 ml EF(MOD-sp2) 56.5 % EF(sp2-el) 57.5 % LVLd %diff -10.10 % EDV(MOD-bp) 107.9 ml LVLs %diff -21.09 % ESV(MOD-bp) 49.7 ml EF(MOD-bp) 53.9 % SV(MOD-sp4) 64.0 ml SI(MOD-sp4) 25.5 ml/m\S\2 SV(MOD-sp2) 55.5 ml SI(MOD-sp2) 22.1 ml/m\S\2 SV(MOD-bp) 58.2 ml SI(MOD-bp) 23.1 ml/m\S\2 SV(sp4-el) 65.3 ml SI(sp4-el) 26.0 ml/m\S\2 SV(sp2-el) 59.1 ml SI(sp2-el) 23.5 ml/m\S\2 Doppler Measurements and Calculations MV E max barbara 62.1 cm/sec MV A max barbara 54.8 cm/sec MV E/A 1.1 MV dec time 0.27 sec Ao V2 max 113.4 cm/sec Ao max PG 5.1 mmHg Ao max PG (full) 1.4 mmHg GWYN(V,A) 2.8 cm\S\2 GWYN(V,D) 2.8 cm\S\2 LV V1 max PG 3.8 mmHg LV V1 max 97.3 cm/sec PA V2 max 97.7 cm/sec PA max PG 3.8 mmHg PA acc slope 361.6 cm/sec\S\2 PA acc time 0.14 sec TR max barbara 97.0 cm/sec PA pr(Accel) 15.6 mmHg
[2017-10-19] MEDS ORDERED: CEFTRIAXONE SOD INJ 2,000 MG in DEXTROSE 5% 50ML 50 ML IV ONE (17:03)
--- NOTE | 2017-10-19 18:22 | Progress Note ---
Progress Note Date of Service Oct 19, 2017. Progress Note Pt seen in f/u from early AM admit - feeling ok - definitely better than when called 911 last night arm weakness and speech difficulty have both totally resolved had fever sensation, chills, sweats for about 2wks prior to admission MRI confirms stroke stroke - lead ddx being endocarditis - blood cultures drawn, abx started, TTE normal d/w cardiology for TERRY tomorrow, neuro in agreement fevers/chills - see above, clinical suspicion high enough starting abx empirically now that cx drawn/sent stable
[2017-10-20] VITALS (16 sets, daily range): BP systolic 110–157; BP diastolic 62–99; PULSE 69–88; TEMP 36.6–37; O2SAT 92–98
[2017-10-20] MEDS ORDERED: OPTIRAY 320 IV PRN (02:45)
--- NOTE | 2017-10-20 05:47 | Family Medicine Progress Note ---
Progress Note Date of Service Oct 20, 2017. Subjective Pt evaluation today including: conversation w/ patient, physical exam, chart review, lab review, review of studies, review of inpatient medication list Pain: denies PO Intake: adequate Voiding: no voiding problems Overnight, Chest CT was ordered showing Mild supraclavicular, mediastinal, and retropectoral adenopathy and borderline enlarged retroperitoneal/para- aortic lymph nodes. Lymph node Constitutional: No fever, No chills Respiratory: No cough, No shortness of breath Cardiovascular: No chest pain, No edema, No palpitations Abdomen: No pain, No nausea, No vomiting, No diarrhea Male : No dysuria, No urinary frequency Neurologic: No weakness, No numbness/tingling Skin: No rash, No itch Medications Current Inpatient Medications Medications (Trade) Dose Ordered Sig/Suraj Route Start Time Stop Time Status Last Admin Dose Admin Acetaminophen (Tylenol Tab) 650 mg Q4H PRN PO 10/19/17 00:15 11/18/17 00:14 Al Hydrox/Mg Hydrox/Simethicone (Maalox Max Susp) 15 ml Q4H PRN PO 10/19/17 00:15 11/18/17 00:14 Magnesium Hydroxide (Milk Of Magnesia Susp) 30 ml Q12H PRN PO 10/19/17 00:15 11/18/17 00:14 Zolpidem Tartrate (Ambien Tab) 5 mg HSZ PRN PO 10/19/17 00:15 11/18/17 00:14 Ondansetron HCl (Zofran Inj) 4 mg Q6H PRN IV 10/19/17 00:15 11/18/17 00:14 Nitroglycerin (Nitrostat Tab) 0.4 mg UD PRN SL 10/19/17 00:15 11/18/17 00:14 Polyethylene (Miralax Powder Packet) 17 gm DAILY PRN PO 10/19/17 00:15 11/18/17 00:14 Atorvastatin Calcium (Lipitor Tab) 10 mg QAM PO 10/19/17 09:00 11/18/17 08:59 10/19/17 08:18 10 MG Miscellaneous Information (Pharmacist Discharge Med Rec Consult) 1 ea UD PRN N/A 10/19/17 00:15 11/18/17 00:14 Loratadine (Claritin Tab) 10 mg DAILY PO 10/19/17 09:00 11/18/17 08:59 10/19/17 08:18 10 MG Montelukast Sodium (Singulair Tab) 10 mg DAILY PO 10/19/17 09:00 11/18/17 08:59 10/19/17 08:18 10 MG Clopidogrel Bisulfate (plAVix TAB) 75 mg QAM PO 10/19/17 09:00 11/18/17 08:59 10/19/17 08:18 75 MG Ioversol (Optiray 320) 100 ml UD PRN IV 10/19/17 00:45 10/23/17 00:44 Miscellaneous (Iv Fluids Completed) 1 ea PRN PRN N/A 10/19/17 04:30 10/19/18 04:29 Lorazepam (Ativan Inj) 1 mg Q15M PRN IV 10/19/17 10:30 11/18/17 10:29 Gadobutrol (Gadavist) 12 mmol UD PRN IV 10/19/17 12:45 10/23/17 12:44 Ceftriaxone Sodium 2000 mg/ Dextrose 70 ml @ 100 mls/hr DAILY IV 10/20/17 09:00 10/22/17 08:59 10/20/17 09:25 100 MLS/HR Ioversol (Optiray 320) 100 ml UD PRN IV 10/20/17 02:45 10/24/17 02:44 Objective Vital Signs Date Time Temp Pulse Resp B/P (MAP) Pulse Ox O2 Delivery O2 Flow Rate FiO2 10/20/17 11:49 83 16 146/96 96 Nasal Cannula 4 10/20/17 08:00 Room Air 10/20/17 07:16 36.6 82 20 131/90 (104) 95 10/20/17 04:07 37.0 88 17 114/76 (89) 92 Room Air 10/20/17 04:00 Room Air 10/20/17 00:01 Room Air 10/19/17 23:55 36.7 77 21 128/91 (103) 96 Room Air 10/19/17 20:00 Room Air 10/19/17 18:52 36.5 88 17 146/95 (112) 94 Room Air 10/19/17 16:00 Room Air 10/19/17 15:23 37.3 87 18 136/94 (108) 95 Room Air Physical Exam General Appearance: WD/WN, no apparent distress Eyes: normal inspection, PERRL, EOMI Neck: supple Respiratory/Chest: lungs clear, normal breath sounds, no respiratory distress Cardiovascular: regular rate, rhythm, no edema, no murmur Abdomen: normal bowel sounds, non tender, soft Extremities: normal range of motion, no pedal edema 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, no motor/sensory deficits, alert, normal mood/affect, oriented x 3 Skin: warm/dry, no rash Laboratory Results Results Past 24 Hours Test 10/19/17 13:51 10/20/17 05:43 Range/Units Troponin I < 0.015 0-0.045 ng/ml White Blood Count 13.08 4.8-10.8 K/uL Red Blood Count 4.80 4.7-6.1 M/uL Hemoglobin 15.0 14.0-18.0 g/dL Hematocrit 42.9 42-52 % Mean Corpuscular Volume 89.4 80-100 fL Mean Corpuscular Hemoglobin 31.3 25-34 pg Mean Corpuscular Hemoglobin Concent 35.0 32-36 g/dl Platelet Count 250 130-400 K/uL Mean Platelet Volume 9.5 7.4-10.4 fL Neutrophils (%) (Auto) 79.7 % Lymphocytes (%) (Auto) 9.5 % Monocytes (%) (Auto) 9.3 % Eosinophils (%) (Auto) 0.8 % Basophils (%) (Auto) 0.3 % Neutrophils # (Auto) 10.43 1.4-6.5 K/uL Lymphocytes # (Auto) 1.24 1.2-3.4 K/uL Monocytes # (Auto) 1.22 0.11-0.59 K/uL Eosinophils # (Auto) 0.10 0-0.5 K/uL Basophils # (Auto) 0.04 0-0.2 K/uL RDW Standard Deviation 40.6 36.4-46.3 fL RDW Coefficient of Variation 12.6 11.5-14.5 % Immature Granulocyte % (Auto) 0.4 % Immature Granulocyte # (Auto) 0.05 0.00-0.02 K/uL Sodium Level 136 136-145 mmol/L Potassium Level 3.9 3.5-5.1 mmol/L Chloride Level 103 98-107 mmol/L Carbon Dioxide Level 26 21-32 mmol/L Anion Gap 7.0 3-11 mmol/L Blood Urea Nitrogen 14 7-18 mg/dl Creatinine 0.84 0.60-1.40 mg/dl Est Creatinine Clear Calc Drug Dose 157.4 ml/min Estimated GFR () 121.7 Estimated GFR (Non- 105.0 BUN/Creatinine Ratio 16.4 10-20 Random Glucose 102 70-99 mg/dl Calcium Level 9.0 8.5-10.1 mg/dl Triglycerides Level 115 0-150 mg/dl Cholesterol Level 153 0-200 mg/dl HDL Cholesterol 42 mg/dl LDL Cholesterol, Calculated 88 mg/dl VLDL Cholesterol, Calculated 23 mg/dl Cholesterol/HDL Ratio 3.6 Microbiology Results 10/19/17 Blood Culture, Received Pending 10/19/17 Blood Culture, Received Pending Assessment and Plan 47 yo M with HLD, HTN, FHX CVA, AFIB, p/w transient episode of aphagia , Rt arm weakness found to have MRI findings consistent posterior left frontal lobe infarct, with supraclavicular, mediastinal, and retropectoral adenopathy Acute CVA - CT Head negative - MRI confirms posterior left frontal lobe CVA -F/u Neurology report Plavix, Statin Echocardiogram pending Lipid Panel and HBA1C Lyme panel neg Lymphadenopathy - infectious vs malignancy -Ct Chest findings of 1. Mild supraclavicular, mediastinal, and retropectoral adenopathy. 2. Borderline enlarged retroperitoneal/para-aortic lymph nodes. - Flow cytometry ordered to rule out malignancy - CBC : mildly elevated white ct Elevated WBCs (Neutrophil Predominance) Unknown etiology, will monitor, likely reactive. Allergy c/w Loratadine and Singulair QHS. DVT Proph: SCDs. Diet: Heart Healthy Dispo - Home Resident Physician Supervision Note: I interviewed and examined the patient. Discussed with Dr. Doe and agree with findings and plan as documented in the note. Any exceptions or clarifications are listed here: None Documented By: Hernan orta discussed TERRY results and next steps extensive discussion all questions answered vitals noted nad breathing unlabored no pallor or icterus CVA - not PFO or endocarditis, ?hypercoag state, CT abd/pelv and FNA node otherwise as above Continued [facility] stay due to: multiple IV medications needed Discharge planning: home Resident Tracking Resident Involvement: Resident Care Provided Care Provided: Adult Hospital Medicine
[2017-10-20 06:00] LABS: BASO % 0.3 %; BASO ABS # 0.04 K/uL (0-0.2); EOS % 0.8 %; HEMATOCRIT 42.9 % (42-52); IG# 0.05 K/uL (0.00-0.02); LYMPH % 9.5 %; LYMPH ABS # 1.24 K/uL (1.2-3.4); MEAN CELL VOLUME 89.4 fL (80-100); MEAN CORPUSCULAR HEMOGLOBIN 31.3 pg (25-34); MEAN PLATELET VOLUME 9.5 fL (7.4-10.4); MONO % 9.3 %; MONO ABS # 1.22 K/uL (0.11-0.59); NEUT % 79.7 %; NEUT ABS # 10.43 K/uL (1.4-6.5); PLATELET COUNT 250 K/uL (130-400); RED CELL DISTRIBUTION WIDTH CV 12.6 % (11.5-14.5); RED CELL DISTRIBUTION WIDTH SD 40.6 fL (36.4-46.3); WHITE BLOOD COUNT 13.08 K/uL (4.8-10.8)
[2017-10-20 06:30] LABS: CREATININE 0.84 mg/dl (0.60-1.40); POTASSIUM 3.9 mmol/L (3.5-5.1)
--- NOTE | 2017-10-20 07:05 | DIAGNOSTIC IMAGING REPORT ---
CT OF THE CHEST WITH IV CONTRAST CLINICAL HISTORY: Adenopathy COMPARISON STUDY: CT angiography the neck dated 10/19/2017 TECHNIQUE: Following the IV administration of 93 mL of Optiray-320, CT of the thorax was performed from the thoracic inlet to the lung bases. Images are reviewed in the axial, sagittal, and coronal planes. IV contrast was administered without complication. A dose lowering technique was utilized adhering to the principles of ALARA. CT DOSE: 805.83 mGy.cm FINDINGS: Thyroid: Imaged portions of the thyroid gland are normal in appearance. Thoracic aorta: The thoracic aorta is normal in course and caliber, noting standard 3-vessel arch anatomy. No aneurysm or dissection is seen. Pulmonary vasculature: The pulmonary trunk is normal in caliber. There are no central filling defects identified to suggest pulmonary embolus. Note that this examination was not protocoled for the evaluation of pulmonary emboli. HEART: The heart is normal in size and configuration, without pericardial effusion. Lungs and pleural spaces: The lungs and pleural spaces are clear. Mediastinum: There are mildly enlarged prevascular lymph nodes measuring up to 13 mm in diameter. There are enlarged left supraclavicular lymph nodes measuring up to 25 mm in diameter. Cristina: Clear. Axilla: There is an enlarged left retropectoral lymph node measuring 34 x 16 mm. Upper abdomen: There are borderline enlarged retroperitoneal lymph nodes. Skeletal structures: There are no lytic or blastic osseous lesions. IMPRESSION: 1. Mild supraclavicular, mediastinal, and retropectoral adenopathy. 2. Borderline enlarged retroperitoneal/para-aortic lymph nodes. Electronically signed by: Trey Villarreal M.D. 10/20/2017 7:04 AM Dictated Date/Time: 10/20/2017 6:58 AM
[2017-10-20] MEDS: CEFTRIAXONE SOD INJ 2,000 MG in DEXTROSE 5% 50ML 50 ML IV SCH (09:25)
[2017-10-20] MEDS ORDERED: MIDAZOLAM HCL 1 MG/ML 2ML VIAL ONE ×3 (11:19→12:23)
[2017-10-20] MEDS ORDERED: FENTANYL CITRATE INJ 50 MCG/1 ML 2 ML VIAL ONE (11:20)
[2017-10-20] MEDS ORDERED: MEPERIDINE HCL 50 MG/ML CARP ONE (12:09)
--- NOTE | 2017-10-20 12:49 | Pre Sedation Assessment ---
Pre Sedation Assessment General Date of Sedation: Oct 20, 2017. Vital Signs Past 12 Hours Date Time Temp Pulse Resp B/P (MAP) Pulse Ox O2 Delivery O2 Flow Rate FiO2 10/20/17 12:45 76 16 131/80 95 Nasal Cannula 4 10/20/17 12:40 74 16 144/78 95 Nasal Cannula 4 10/20/17 12:35 83 16 157/71 96 Nasal Cannula 4 10/20/17 12:30 83 16 134/84 96 Nasal Cannula 4 10/20/17 12:25 83 16 154/87 96 Nasal Cannula 4 10/20/17 12:20 83 16 144/87 96 Nasal Cannula 4 10/20/17 12:15 83 16 147/70 96 Nasal Cannula 4 10/20/17 08:00 Room Air 10/20/17 07:16 36.6 82 20 131/90 (104) 95 10/20/17 04:07 37.0 88 17 114/76 (89) 92 Room Air 10/20/17 04:00 Room Air Review Cardiovascular: regular rate, rhythm Lungs: lungs clear Pre-Sedation Airway Assessment Smoking Status: Never Smoker Hx of Sleep Apnea: No Short Thick Neck: No Thyro-mental Distance: > 3 Finger Breadths Oral Cavity: WNL Mallampati Classification: Class I ASA Classification: Class III NPO Status Date of Last Intake of Fluids: Oct 19, 2017 Time of Last Intake of Fluids: 1899 Date of Last Intake of Solids: Oct 19, 2017 Time of Last Intake of Solids: 1899 Procedure Planning Contraindications for Sedation: None Current Medications Reviewed: Yes Notes The planned sedation has been discussed with the patient. Informed Consent was obtained. I have identified the patient, determined the appropriateness of sedation and have assessed the patient immediately prior to the procedure. All medicine(s) and interventions are by my order.
--- NOTE | 2017-10-20 12:50 | Post Sedation Assessment ---
Post Sedation Assessment General Date of Sedation Oct 20, 2017. Vital Signs: Vital Signs Past 12 Hours Date Time Temp Pulse Resp B/P (MAP) Pulse Ox O2 Delivery O2 Flow Rate FiO2 10/20/17 12:45 76 16 131/80 95 Nasal Cannula 4 10/20/17 12:40 74 16 144/78 95 Nasal Cannula 4 10/20/17 12:35 83 16 157/71 96 Nasal Cannula 4 10/20/17 12:30 83 16 134/84 96 Nasal Cannula 4 10/20/17 12:25 83 16 154/87 96 Nasal Cannula 4 10/20/17 12:20 83 16 144/87 96 Nasal Cannula 4 10/20/17 12:15 83 16 147/70 96 Nasal Cannula 4 10/20/17 08:00 Room Air 10/20/17 07:16 36.6 82 20 131/90 (104) 95 10/20/17 04:07 37.0 88 17 114/76 (89) 92 Room Air 10/20/17 04:00 Room Air Post Procedure Recovery Score Activity: (2) Moves 4 extremities * Respiration: (2) Deep breath/cough Circulation: (2) +/-20% PreAnes Value Consciousness: (2) Fully Awake Oxygen Saturation: (2) > 92% On Room Air Post Anesthesia Score: 10 Discharge Sedation Level of Care: Phase I Post Sedation Plan On clinical assessment, the patient appears to have tolerated the sedation without complications. Patient is recovering as anticipated. Patient will continue to be monitored by nursing and may be discharged when sedation discharge criteria are met per below protocol. Upon Completions of procedure and additional 15 minutes continue every 5 minute vital signs and the P.A.R. score; then discharge to a Phase I or Fast Track to Phase II per the following guidelines: * Discharge Patient to appropriate Phase II area if PAR is 8 or greater or return to pre- procedure baseline. The post - procedure orders will be as directed. * If PAR score is less than 8 or not return to pre-procedure baseline then patient will follow Phase I monitoring till PAR is reached for Phase II. The Phase I may be done in procedure room or may call to secure a Phase I area. * If naloxone or flumazenil are used for reversal, hold in Phase I for an additional 60 -120 minutes before discharge to Phase II. Please call the Sedation Physician to re-evaluate and complete post-note for discharge to Phase II area. Do NOT discharge from procedure sedation or Phase 1 until post- sedation evaluation note is complete by procedure /sedation MD Sedation Discharge Instructions to be given to the patient at discharge to home.
--- NOTE | 2017-10-20 12:54 | Cardiology Procedure Brief Nt ---
Preliminary Cardiology Note Procedure Date Oct 20, 2017. Pre-Procedure Diagnosis CVA Post-Procedure Diagnosis same Procedure(s) Performed TERRY Academic Interventionist Regina Paige Cost Recovery Technician(s) Augustine Jaimes Estimated Blood Loss none Medication(s) Demerol 100 mg total, IVP Versed 6 mg total, IVP Preliminary Findings Normal LV No valvular vegetations No intra cardiac thrombus Recommendations Continue current Rx Specimens none Drains none Anesthesia none Complication(s) None Disposition PCU
[2017-10-20] MEDS: ATORVASTATIN 10 MG TAB PO SCH (13:58)
[2017-10-20] MEDS: CLOPIDOGREL BISULFATE 75 MG TAB PO SCH (13:59)
[2017-10-20] MEDS: LORATADINE 10 MG TAB PO SCH (13:59)
[2017-10-20] MEDS: MONTELUKAST SOD 10 MG TAB PO SCH (13:59)
--- NOTE | 2017-10-20 16:57 | TEE ---
*NOTICE TO RECEIVING [employer] This information is strictly Confidential and protected under [place] law. [place] law prohibits you from making any further disclosure of this information unless further disclosure is expressly permitted by the written consent of the person to whom it pertains or is authorized by law. A general authorization for the release of medical or other information is not sufficient for this purpose. Hospital accepts no responsibility if the information is made available to any other person, INCLUDING THE PATIENT. Interpretation Summary * Name: THUAN VILCHIS Study Date: 10/20/2017 10:59 AM BP: 147/70 mmHg * Patient Location: C.2T\S\S234\S\1 HR: 91 * : 1970 (M/d/yyyy) Gender: Male Height: 76 in * Age: 47 yrs Ethnicity: CA Weight: 271 lb * Ordering Physician: Hernan Piña * Referring Physician: Self, Referred * Performed By: Lelo Pickens RDCS * * Reason For Study: Stroke, endocarditis * BSA: 2.5 m2 * -- Conclusions -- * Left ventricular systolic function is normal. * The left ventricular wall motion is normal. * No valvular vegetations * No patent foramina ovale or atrial septal defect. Procedure Details * The transesophageal portion of this study was personally supervised by the undersigned interpreting physician. * The study was performed in Cardiopulmonary Department. * Time out was conducted by the physician, nurse, and coroner forensic technician with positive identification of patient and procedure. * Informed consent for Transesophageal Echocardiogram was obtained prior to the procedure. * An intravenous line was placed. A topical anesthetic agent was used for oropharangeal anesthesia. A bite block was inserted. * The patient's vital signs, including blood pressure, heart rate, pulse oximetry and cardiac rhythm were monitored throughout the procedure . * Meperidine 100 mg administered for sedation. * Midazolam 6 mg administered for sedation. * The posterior oropharynx was anesthetized using a topical anesthetic spray. A bite guard was inserted. * A multifrequency, multiplane transesopheageal echocardiographic endoscope was inserted and manipulated in the standard fashion to achieve multiplane views. * The transesophageal probe was passed without difficulty. * The usual views were obtained; basal, mid-esophageal, transgastric and aortic views. * The patient tolerated the procedure well without evidence of orophangeal or esophageal trauma. * A 2D transesophageal echocardiogram with spectral and color flow Doppler was performed. * Contrast injection with agitated saline was performed. * Probe #3 utilized for procedure. Probe in 1220 Probe out 1225 Probe in 1235 Probe out 1245 * A 2D transesophageal echocardiogram was performed. * A 2D transesophageal echocardiogram with color flow Doppler was performed. * A 2D transesophageal echocardiogram with Doppler and color flow Doppler was performed. Left Ventricle * The left ventricle is normal in size. * There is normal left ventricular wall thickness. * Left ventricular systolic function is normal. * Ejection Fraction = 55-60%. * The left ventricular wall motion is normal. Right Ventricle * The right ventricular systolic function is normal. Atria * The left atrium is mildly dilated. * Right atrium not well visualized. * Injection of contrast documented no interatrial shunt. Mitral Valve * The mitral valve is normal in structure and function. * There is no vegetation seen on the mitral valve. * There is no mitral valve stenosis. * Significant mitral regurgitation is absent. Tricuspid Valve * The tricuspid valve is not well visualized, but is grossly normal. * There is no tricuspid valve vegetation. * There is no tricuspid stenosis. * Significant tricuspid regurgitation is absent. Aortic Valve * The aortic valve is normal in structure and function. * There is no aortic valvular vegetation. * Aortic stenosis is absent. * No aortic regurgitation is present. Pulmonic Valve * The pulmonic valve is not well visualized. Great Vessels * The aortic root is normal size. * The pulmonary artery is normal size. Pericardium * There is no pericardial effusion. Right Ventricle * The right ventricular wall motion is normal.
[2017-10-20] MEDS ORDERED: PANTOprazole SOD 40 MG TAB PO STA (21:20)
[2017-10-20] MEDS ORDERED: RANITIDINE HCL 150 MG TAB PO STA (21:23)
[2017-10-21] VITALS (7 sets, daily range): BP systolic 136–152; BP diastolic 82–94; PULSE 77–86; TEMP 36.6–37; O2SAT 94–97
[2017-10-21 07:09] LABS: BASO % 0.3 %; BASO ABS # 0.05 K/uL (0-0.2); EOS % 0.5 %; EOS ABS # 0.08 K/uL (0-0.5); HEMOGLOBIN 15.4 g/dL (14.0-18.0); IG# 0.04 K/uL (0.00-0.02); LYMPH % 8.6 %; LYMPH ABS # 1.27 K/uL (1.2-3.4); MEAN CELL VOLUME 89.6 fL (80-100); MEAN CORPUSCULAR HEMOGLOBIN 32.1 pg (25-34); MEAN CORPUSCULAR HGB CONC 35.8 g/dl (32-36); MEAN PLATELET VOLUME 9.9 fL (7.4-10.4); MONO % 9.2 %; MONO ABS # 1.37 K/uL (0.11-0.59); NEUT % 81.1 %; NEUT ABS # 12.03 K/uL (1.4-6.5); PLATELET COUNT 257 K/uL (130-400); RED CELL DISTRIBUTION WIDTH CV 12.6 % (11.5-14.5); RED CELL DISTRIBUTION WIDTH SD 40.6 fL (36.4-46.3); WHITE BLOOD COUNT 14.84 K/uL (4.8-10.8)
[2017-10-21 07:40] LABS: CALCIUM 8.8 mg/dl (8.5-10.1); CREATININE 0.87 mg/dl (0.60-1.40); POTASSIUM 3.7 mmol/L (3.5-5.1)
--- NOTE | 2017-10-21 08:39 | DIAGNOSTIC IMAGING REPORT ---
CT ABD/PELVIS IV AND ORAL CONT CLINICAL HISTORY: Virchow node PELVIC PAIN, ADENOPATHY COMPARISON STUDY: None. TECHNIQUE: Following the IV administration of 119 mL of Optiray-320, CT scan of the abdomen and pelvis was performed from the lung bases to the proximal femurs. Images are reviewed in the axial, sagittal, and coronal planes. IV contrast was administered without complication. A dose lowering technique was utilized adhering to the principles of ALARA. CT DOSE: 1270.09 mGycm FINDINGS: Lower chest: The heart is normal in size and configuration, without pericardial effusion. The lung bases and pleural spaces are clear. Liver: The contrast-enhanced liver is normal in size, contour, and attenuation. There is no intrahepatic biliary ductal dilatation. The hepatic veins and portal veins are patent. Gallbladder: Unremarkable. Spleen: Normal in size and attenuation. Pancreas: Unremarkable. Adrenal glands: Unremarkable. Kidneys: There is symmetric renal cortical enhancement. The kidneys are normal in size without hydronephrosis. Bowel: There are no transition zones indicate bowel obstruction. There is colonic diverticulosis. There is no evidence of acute diverticulitis. The appendix appears normal. Peritoneum: There is no intraperitoneal free air or abdominal ascites. There is a fat-containing umbilical hernia Vasculature: The abdominal aorta is normal in course and caliber. Adenopathy: There are multiple enlarged retroperitoneal aortocaval lymph nodes. The largest single node measures 23 mm in diameter. Pelvic viscera: The bladder, and pelvic viscera are unremarkable. 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 There is a grade 1 spondylolisthesis of L4 3 on L4. There is an old right inferior initial deformity. IMPRESSION: 1. Pathologic aortocaval lymphadenopathy 2. No solid organ masses identified Electronically signed by: Trey Villarreal M.D. 10/21/2017 8:26 AM Dictated Date/Time: 10/21/2017 8:18 AM
[2017-10-21] MEDS: ATORVASTATIN 10 MG TAB PO SCH (08:58)
[2017-10-21] MEDS: MONTELUKAST SOD 10 MG TAB PO SCH (08:58)
[2017-10-21] MEDS: CEFTRIAXONE SOD INJ 2,000 MG in DEXTROSE 5% 50ML 50 ML IV SCH (08:58)
[2017-10-21] MEDS: CLOPIDOGREL BISULFATE 75 MG TAB PO SCH (08:58)
[2017-10-21] MEDS: LORATADINE 10 MG TAB PO SCH (08:58)
[2017-10-21] MEDS ORDERED: PANTOprazole SOD 40 MG TAB PO SCH (09:00)
--- NOTE | 2017-10-21 09:38 | Family Medicine Progress Note ---
Progress Note Date of Service Oct 21, 2017.
[2017-10-21] MEDS ORDERED: ATOR-24 PO (13:45)
[2017-10-21] MEDS ORDERED: PLV75 PO (13:45)
[2017-10-21] MEDS ORDERED: CEFD1CAP14 PO (13:45)
[2017-10-21] MEDS ORDERED: HYDR25TA4 PO (13:45)
--- NOTE | 2017-10-21 14:02 | Discharge Instructions ---
Discharge Instructions Date of Service Oct 21, 2017. Admission Reason for Admission: TIA Discharge Discharge Diagnosis / Problem: Acute Stroke Discharge Goals Goal(s): Decrease discomfort, Improve function, Increase independence, Improve disease control, Improve nutritional status, Learn about illness, Diagnostic testing, Therapeutic intervention, Screening, Prevent Disease Progression, Specific goals Activity Recommendations Activity Limitations: resume your previous activity . Instructions / Follow-Up Instructions / Follow-Up You were admitted with an acute stroke which was confirmed on MRI scan and were found to have Enlarged Lymph nodes on both your chest/abdominal CT scans. It is unclear at this point what risk factors you have for clotting and strokes. You have multiple lab tests pending which may narrow the potential causes for you blood being more prone to clotting. This information will be made available to your primary care provider. -Please take newly prescribed medications as directed . PLEASE WAIT prior to starting the prescription HYDROCHLOROTHIAZIDE. All other medications can be started tomorrow -You are being prescribed a cardiac event monitor to rule out abnormal rhythms of the heart such as Atrial fibrillation that can be associated with stroke risk -You are being scheduled for an appointment with Dr. Teresa Beck on discharge. If you haven't heard from us or her office by about noon on Wednesday, please call [phone] to check on the status -- Hallie (our bank officer) will answer and can help make sure things get set up. -You are being scheduled for an appointment with Neurology as well Call 737 for any of the following: You have any of the following signs of a stroke: -Numbness or drooping on one side of your face -Weakness in an arm or leg -Confusion or difficulty speaking -Dizziness, a severe headache, or vision loss -You have a seizure. -You feel lightheaded, short of breath, and have chest pain. -You cough up blood. -You have a severe headache, or loss of balance or coordination. Seek care immediately if: -Your arm or leg feels warm, tender, and painful. It may look swollen and red. -You have double vision or vision loss. -You have unusual or heavy bleeding. Contact your healthcare provider or neurologist if: -You have questions or concerns about your condition or care. Current Hospital Diet Patient's current hospital diet: AHA Diet (Heart Healthy) Discharge Diet Recommended Diet: Regular Diet Pending Studies Studies pending at discharge: yes List of pending studies: Hypercoagulabilty panel Laboratory Results Hemoglobin A1c Test 10/19/17 00:24 Range/Units Estimated Average Glucose 120 mg/dl Hemoglobin A1c 5.8 H 4.5-5.6 % Lipid Panel Test 10/20/17 05:43 Range/Units Triglycerides Level 115 0-150 mg/dl Cholesterol Level 153 0-200 mg/dl HDL Cholesterol 42 mg/dl Cholesterol/HDL Ratio 3.6 LDL Cholesterol, Calculated 88 mg/dl Medical Emergencies . Who to Call and When: Medical Emergencies: If at any time you feel your situation is an emergency, please call 911 immediately. . Non-Emergent Contact Non-Emergency issues call your: Primary Care Provider, Neurologist Call Non-Emergent contact if: you have a fever, your pain is not controlled, your pain is worsening, your pain is unusual for you, your pain is concerning you, you have any medication questions . . "Provider Documentation" section prepared by Aleksandar Doe. .
--- NOTE | 2017-10-21 15:33 | Pharmacy Progress Note ---
Pharmacist Stroke Counseling Date of Service Oct 21, 2017. Scope Pharmacy has been consulted to provide medication discharge counseling for this patient admitted with ischemic stroke/hemorrhagic stroke/ transient ischemic attack as per the Pharmacist Discharge Counseling for Stroke Patients Protocol. Medications on Discharge New Medications: Atorvastatin (Lipitor) 40 Mg Tab 1 TAB PO DAILY for 30 Days, #30 TAB 5 Refills Cefdinir (Omnicef) 300 Mg Cap 300 MG PO Q12H for 7 Days, #14 CAP Hydrochlorothiazide (Hctz) 25 Mg Tab 1 TAB PO DAILY for 30 Days, #30 TAB 5 Refills Clopidogrel Bisulfate (Clopidogrel) 75 Mg Tab 75 MG PO QAM for 30 Days, #30 TAB 3 Refills Continued Medications: B-Complex Vitamins (Vitamin B Complex) 1 Tab Tab 1 TAB PO DAILY Bioflavonoid Products (Aditi-C) 1 Tab Tab 1 TAB PO DAILY Cholecalciferol (Vitamin D3) 1,000 Unit Tab 1 TAB PO DAILY, TAB 3 Refills Coenzyme Q10 (Ubidecarenone) (Co Q-10) 75 Mg Cap 1 CAP PO DAILY, CAP Loratadine (Claritin) 10 Mg Tab 10 MG PO DAILY, TAB Montelukast Sodium (Singulair) 10 Mg Tab 10 MG PO DAILY, TAB Discontinued Medications: Aspirin (Aspirin Ec) 81 Mg Tab 81 MG PO DAILY Atorvastatin (Lipitor) 10 Mg Tab 10 MG PO DAILY, TAB Niacin (Niacin) Unknown Strength Tab 2 TABS PO DAILY Action The above medications, specifically ones for stroke treatment/prophylaxis, have been reviewed in detail with the patient and/or patient retail service representative(s) prior to discharge. This includes indication, common adverse reactions, drug interactions, and medication administration. Medication counseling has been employed using the teach-back method to ensure understanding. Outcome The patient has demonstrated understanding of the medications. Please note, they are aware that the pharmacist will call them within 72 hours post-discharge (3 business days) to confirm that the appropriate medications are being taken and answer any further medication related questions the patient might have at that time. Per patient request, patient wants us to call him next Wednesday for follow up phone call - as patient will be busy with appts until then Contact information Individual to be contacted: patient Relationship to patient (if applicable): n/a Phone number: [phone] Best time to call: anytime Additional comments: Patient pleasant to talk with today about medications, seem a little overwhelmed with everything going on. Talked about all of his new medications and reviewed common side effects. Patient did not have any questions during the interview. Provided patient with a medication pill box, stated he has one similar at home. Had notified him that we like to call w/in 72 hrs after discharge, and patient had requested that we wait until Wednesday to give him a call. Thank you for allowing pharmacy to be involved in the care of this patient. Please call [phone] or [phone] with any additional questions
--- NOTE | 2017-10-21 18:14 | Discharge Summary ---
Discharge Summary Date of Service Oct 21, 2017. Discharge Summary Admission Date: Oct 19, 2017 at 18:20 Discharge Date: Oct 21, 2017 Discharge Disposition: Home Principal Diagnosis: cryptogenic stroke Problems/Secondary Diagnoses: (1) Hypertension Status: Chronic Immunizations: Have You Had Influenza Vaccine: Unknown History of Tetanus Vaccine?: Unknown History of Pneumococcal: Unknown History of Hepatitis B Vaccine: Unknown (archana) Procedures: echo: Interpretation Summary * Name: THUAN VILCHIS Study Date: 10/19/2017 07:16 AM BP: 131/85 mmHg * Patient Location: 2\\S\\S234\\S\\1 HR: 81 * : 1970 (M/d/yyyy) Gender: Male Height: 76 in * Age: 47 yrs Ethnicity: MD Weight: 269 lb * Ordering Physician: Wang Cronin * Referring Physician: Self, Referred * Performed By: Lelo Pickens RDCS * * Reason For Study: TIA * BSA: 2.5 m2 * -- Conclusions -- * Left ventricular systolic function is normal. * No regional wall motion abnormalities noted. * Ejection Fraction = 55-60%. * No obvious valvular vegetation. * No patent foramen ovale or atrial septal defect identified. Procedure Details * A complete two-dimensional transthoracic echocardiogram was performed (2D, M- mode, Doppler and color flow Doppler). * A saline contrast injection was performed to assess for cardiac shunting. * The injection was performed through an intravenous line in the left arm. * The attending nurse who injected the saline contrast was Sudha Morrissey RN. * A total of 20 cc of agitated saline was given. Left Ventricle * The left ventricle is normal in size. * There is normal left ventricular wall thickness. * Ejection Fraction = 55-60%. * Left ventricular systolic function is normal. * No regional wall motion abnormalities noted. Right Ventricle * The right ventricle is normal size. * The right ventricular systolic function is normal as assessed by tricuspid annular plane systolic excursion (TAPSE) (normal >1.5 cm). Atria * The left atrium is moderately dilated. * Right atrial size is normal. * Injection of contrast documented no interatrial shunt. Mitral Valve * The mitral valve anatomy is normal. * There is no vegetation seen on the mitral valve. * There is no mitral valve stenosis. * There is mild mitral regurgitation. Tricuspid Valve * The tricuspid valve anatomy is normal. * There is no tricuspid valve vegetation. * There is mild tricuspid regurgitation. Aortic Valve * The aortic valve is trileaflet. * The aortic valve opens well. * There is no aortic valvular vegetation. * No hemodynamically significant valvular aortic stenosis. * There is no significant aortic regurgitation. Pulmonic Valve * The pulmonary valve is not well seen, but the Doppler examination is normal without significant regurgitation or stenosis. Great Vessels * The aortic root is normal size. * The pulmonary artery is not well visualized, but is probably normal size. Pericardium/Pleural * There is no pericardial effusion. Great Vessels * Normal inferior vena cava size and collapsability with sniff indicates a normal right atrial pressure of 3 mmHg transesophogeal echo: Interpretation Summary * Name: THUAN VILCHIS Study Date: 10/20/2017 10:59 AM BP: 147/70 mmHg * Patient Location: [facility]\\S\\1 HR: 91 * : 1970 (M/d/yyyy) Gender: Male Height: 76 in * Age: 47 yrs Ethnicity: MD Weight: 271 lb * Ordering Physician: Hernan Piña * Referring Physician: Self, Referred * Performed By: Lelo Pickens RDCS * * Reason For Study: Stroke, endocarditis * BSA: 2.5 m2 * -- Conclusions -- * Left ventricular systolic function is normal. * The left ventricular wall motion is normal. * No valvular vegetations * No patent foramina ovale or atrial septal defect. Procedure Details * The transesophageal portion of this study was personally supervised by the undersigned interpreting physician. * The study was performed in Cardiopulmonary Department. * Time out was conducted by the physician, nurse, and process control technician with positive identification of patient and procedure. * Informed consent for Transesophageal Echocardiogram was obtained prior to the procedure. * An intravenous line was placed. A topical anesthetic agent was used for oropharangeal anesthesia. A bite block was inserted. * The patient's vital signs, including blood pressure, heart rate, pulse oximetry and cardiac rhythm were monitored throughout the procedure . * Meperidine 100 mg administered for sedation. * Midazolam 6 mg administered for sedation. * The posterior oropharynx was anesthetized using a topical anesthetic spray. A bite guard was inserted. * A multifrequency, multiplane transesopheageal echocardiographic endoscope was inserted and manipulated in the standard fashion to achieve multiplane views. * The transesophageal probe was passed without difficulty. * The usual views were obtained; basal, mid-esophageal, transgastric and aortic views. * The patient tolerated the procedure well without evidence of orophangeal or esophageal trauma. * A 2D transesophageal echocardiogram with spectral and color flow Doppler was performed. * Contrast injection with agitated saline was performed. * Probe #3 utilized for procedure. Probe in 1220 Probe out 1225 Probe in 1235 Probe out 1245 * A 2D transesophageal echocardiogram was performed. * A 2D transesophageal echocardiogram with color flow Doppler was performed. * A 2D transesophageal echocardiogram with Doppler and color flow Doppler was performed. Left Ventricle * The left ventricle is normal in size. * There is normal left ventricular wall thickness. * Left ventricular systolic function is normal. * Ejection Fraction = 55-60%. * The left ventricular wall motion is normal. Right Ventricle * The right ventricular systolic function is normal. Atria * The left atrium is mildly dilated. * Right atrium not well visualized. * Injection of contrast documented no interatrial shunt. Mitral Valve * The mitral valve is normal in structure and function. * There is no vegetation seen on the mitral valve. * There is no mitral valve stenosis. * Significant mitral regurgitation is absent. Tricuspid Valve * The tricuspid valve is not well visualized, but is grossly normal. * There is no tricuspid valve vegetation. * There is no tricuspid stenosis. * Significant tricuspid regurgitation is absent. Aortic Valve * The aortic valve is normal in structure and function. * There is no aortic valvular vegetation. * Aortic stenosis is absent. * No aortic regurgitation is present. Pulmonic Valve * The pulmonic valve is not well visualized. Great Vessels * The aortic root is normal size. * The pulmonary artery is normal size. Pericardium * There is no pericardial effusion. Right Ventricle * The right ventricular wall motion is normal. MRI OF THE BRAIN WITHOUT AND WITH IV CONTRAST CLINICAL HISTORY: Transient ischemic attack versus cerebrovascular accident. COMPARISON STUDY: Head CT October 18, 2017 and CTA of the head October 19, 2017. TECHNIQUE: Utilizing a 1.5 Olya magnet and dedicated coil, multiplanar, multiecho imaging of the brain was performed pre and postcontrast administration. IV administration of 12 mL of Gadavist contrast was uneventful. FINDINGS: There is a 1.2 cm focus of restricted diffusion within the posterior aspect of the left frontal lobe involving the precentral gyrus. There is minimal corresponding FLAIR signal abnormality. There is no mass effect or evidence for hemorrhagic conversion. A few equivocal punctate foci of restricted diffusion within the right frontoparietal region are likely artifactual. Ventricular system is normal. Basilar cisterns are patent. No chest wall collections are present. There is no intracranial mass or pathologic enhancement. Brain volume is normal. Calvarial signal is normal. A left maxillary mucous retention cyst is noted. IMPRESSION: 1. 1.2 cm focus of acute infarction within the posterior left frontal lobe, likely involving the precentral gyrus. No mass effect or hemorrhage. 2. A few equivocal additional foci of restricted diffusion within the right frontoparietal region. Additional punctate acute infarcts could appear similar although are considered less likely. Electronically signed by: Ronnie Goddard M.D. 10/19/2017 1:00 PM Dictated Date/Time: 10/19/2017 12:[address] OF THE CHEST WITH IV CONTRAST CLINICAL HISTORY: Adenopathy COMPARISON STUDY: CT angiography the neck dated 10/19/2017 TECHNIQUE: Following the IV administration of 93 mL of Optiray-320, CT of the thorax was performed from the thoracic inlet to the lung bases. Images are reviewed in the axial, sagittal, and coronal planes. IV contrast was administered without complication. A dose lowering technique was utilized adhering to the principles of ALARA. CT DOSE: 805.83 mGy.cm FINDINGS: Thyroid: Imaged portions of the thyroid gland are normal in appearance. Thoracic aorta: The thoracic aorta is normal in course and caliber, noting standard 3-vessel arch anatomy. No aneurysm or dissection is seen. Pulmonary vasculature: The pulmonary trunk is normal in caliber. There are no central filling defects identified to suggest pulmonary embolus. Note that this examination was not protocoled for the evaluation of pulmonary emboli. HEART: The heart is normal in size and configuration, without pericardial effusion. Lungs and pleural spaces: The lungs and pleural spaces are clear. Mediastinum: There are mildly enlarged prevascular lymph nodes measuring up to 13 mm in diameter. There are enlarged left supraclavicular lymph nodes measuring up to 25 mm in diameter. Cristina: Clear. Axilla: There is an enlarged left retropectoral lymph node measuring 34 x 16 mm. Upper abdomen: There are borderline enlarged retroperitoneal lymph nodes. Skeletal structures: There are no lytic or blastic osseous lesions. IMPRESSION: 1. Mild supraclavicular, mediastinal, and retropectoral adenopathy. 2. Borderline enlarged retroperitoneal/para-aortic lymph nodes. Electronically signed by: Trey Villarreal M.D. 10/20/2017 7:04 AM Dictated Date/Time: 10/20/2017 6:58 AM [~ rep ct add3]] CT ABD/PELVIS IV AND ORAL CONT CLINICAL HISTORY: Virchow node PELVIC PAIN, ADENOPATHY COMPARISON STUDY: None. TECHNIQUE: Following the IV administration of 119 mL of Optiray-320, CT scan of the abdomen and pelvis was performed from the lung bases to the proximal femurs. Images are reviewed in the axial, sagittal, and coronal planes. IV contrast was administered without complication. A dose lowering technique was utilized adhering to the principles of ALARA. CT DOSE: 1270.09 mGycm FINDINGS: Lower chest: The heart is normal in size and configuration, without pericardial effusion. The lung bases and pleural spaces are clear. Liver: The contrast-enhanced liver is normal in size, contour, and attenuation. There is no intrahepatic biliary ductal dilatation. The hepatic veins and portal veins are patent. Gallbladder: Unremarkable. Spleen: Normal in size and attenuation. Pancreas: Unremarkable. Adrenal glands: Unremarkable. Kidneys: There is symmetric renal cortical enhancement. The kidneys are normal in size without hydronephrosis. Bowel: There are no transition zones indicate bowel obstruction. There is colonic diverticulosis. There is no evidence of acute diverticulitis. The appendix appears normal. Peritoneum: There is no intraperitoneal free air or abdominal ascites. There is a fat-containing umbilical hernia Vasculature: The abdominal aorta is normal in course and caliber. Adenopathy: There are multiple enlarged retroperitoneal aortocaval lymph nodes. The largest single node measures 23 mm in diameter. Pelvic viscera: The bladder, and pelvic viscera are unremarkable. 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 There is a grade 1 spondylolisthesis of L4 3 on L4. There is an old right inferior initial deformity. IMPRESSION: 1. Pathologic aortocaval lymphadenopathy 2. No solid organ masses identified Electronically signed by: Trey Villarreal M.D. 10/21/2017 8:26 AM Dictated Date/Time: 10/21/2017 8:18 AM [~ rep ct add3]] CT HEAD ANGIO WITH CONTRAST CLINICAL HISTORY: Dizziness, right-sided numbness, slurred speech. TECHNIQUE: CT angiography of the head was performed in a dynamic helical fashion during intravenous administration of 119 cc of Optiray 320. A dose lowering technique was utilized adhering to the principles of ALARA. MIP imaging was performed CT DOSE: COMPARISON STUDY: Noncontrast head CT performed October 18, 2017 FINDINGS: There are no lesion suspicious for aneurysm. There are no major intracranial branch occlusions. The dural venous sinuses appear patent. There is max or sinus mucosal thickening. IMPRESSION: Normal study. Electronically signed by: Trey Villarreal M.D. 10/19/2017 6:43 AM Dictated Date/Time: 10/19/2017 6:41 AM [~ rep ct add3]] CT ANGIOGRAM OF THE NECK CLINICAL HISTORY: Dizziness. Right-sided numbness. Slurred speech. COMPARISON STUDY: No priors. TECHNIQUE: Following the IV administration of 119 of Optiray 320, CT angiogram of the neck was performed from the aortic arch to the skull base. Images are reviewed in the axial, sagittal, and coronal planes. 3-D MIPS images are created and assessed. IV contrast was administered without complication. All measurements were calculated based on NASCET criteria. A dose lowering technique was utilized adhering to the principles of ALARA. The examination is modestly degraded by motion artifact. CT DOSE: 604.50 mGy.cm FINDINGS: Thoracic aorta: Visualized portions of the thoracic aorta are normal in caliber. The aortic arch demonstrates standard 3-vessel anatomy. Right carotid arterial system: The right common carotid artery is widely patent, as are the right internal and external carotid arteries. Minimal atherosclerotic calcification is noted in the carotid bulb. Left carotid arterial system: The left common carotid artery is widely patent, as are the left internal and external carotid arteries. Vertebral arteries: The vertebral arteries are widely patent bilaterally and codominant. Intracranial vasculature: The visualized intracranial vessels at the skull base are patent. See report of CT angiogram of the brain performed concurrently for detailed intracranial findings. Subclavian arteries: Widely patent bilaterally. Jugular veins: Widely patent bilaterally. Brain parenchyma: The visualized brain parenchyma the skull base is within normal limits. Lung apices: Partially visualized upper lobe lung parenchyma appears clear. Soft tissues: The visualized pharyngeal soft tissues are normal in appearance noting angiographic phase technique. The oropharyngeal airway appears widely patent. The salivary and thyroid glands are normal in appearance. There is left supraclavicular lymphadenopathy. A node seen on image #140 measures 2.3 x 2.0 cm. Mildly enlarged mediastinal nodes are partially visualized. Prevascular nodes measure up to 1.1 cm in short axis. Skeletal structures: The visualized calvarium at the skull base appears intact. The imaged cervical spine is within normal limits. Sinuses and mastoids: Mild mucosal thickening is seen within the maxillary antra. A retention cyst is noted on the left. The remaining paranasal sinuses are clear. The mastoid air cells are well pneumatized. IMPRESSION: 1. Unremarkable CT angiogram of the neck. 2. There are pathologically enlarged left supraclavicular lymph nodes. Neoplasm is the diagnosis of exclusion. Electronically signed by: George Hernandez M.D. 10/19/2017 7:52 AM Dictated Date/Time: 10/19/2017 7:[address] OF THE HEAD WITHOUT CONTRAST CLINICAL HISTORY: Stroke COMPARISON STUDY: No previous studies for comparison. CT DOSE: 1565.49 mGycm TECHNIQUE: Helical axial images of the head were obtained without IV contrast. Automated exposure control was utilized for the study. A dose lowering technique was utilized adhering to the principles of ALARA. FINDINGS: No acute intracranial hemorrhage, midline shift or mass effect is present. Ventricular system is normal. Basilar cisterns are patent. There are no extra-axial collections. Parr-white differentiation is maintained. There are no findings to suggest acute dural sinus thrombosis or acute territorial infarct. There are a few possible subtle white matter hypodensities. No calvarial abnormalities are present. Visualized portions of the sinuses and mastoid air cells are clear. IMPRESSION: 1. No acute intracranial findings. 2. A few small nonspecific white matter hypodensities. Electronically signed by: Ronnie Goddard M.D. 10/18/2017 10:27 PM Dictated Date/Time: 10/18/2017 10:24 PM Hemoglobin A1c Test 10/19/17 00:24 Range/Units Estimated Average Glucose 120 mg/dl Hemoglobin A1c 5.8 H 4.5-5.6 % Lipid Panel Test 10/20/17 05:43 Range/Units Triglycerides Level 115 0-150 mg/dl Cholesterol Level 153 0-200 mg/dl HDL Cholesterol 42 mg/dl Cholesterol/HDL Ratio 3.6 LDL Cholesterol, Calculated 88 mg/dl Last Resulted CBC 10/21/17 06:19 Red Blood Count 4.80, Mean Corpuscular Volume 89.6, Mean Corpuscular Hemoglobin 32.1, Mean Corpuscular Hemoglobin Concent 35.8, Mean Platelet Volume 9.9, Neutrophils (%) (Auto) 81.1, Lymphocytes (%) (Auto) 8.6, Monocytes (%) (Auto) 9.2, Eosinophils (%) (Auto) 0.5, Basophils (%) (Auto) 0.3, Neutrophils # (Auto) 12.03, Lymphocytes # (Auto) 1.27, Monocytes # (Auto) 1.37, Eosinophils # (Auto) 0.08, Basophils # (Auto) 0.05 Last Resulted BMP 10/21/17 06:19 Consultations: neurology Medication Reconciliation New Medications: Atorvastatin (Lipitor) 40 Mg Tab 1 TAB PO DAILY for 30 Days, #30 TAB 5 Refills Cefdinir (Omnicef) 300 Mg Cap 300 MG PO Q12H for 7 Days, #14 CAP Hydrochlorothiazide (Hctz) 25 Mg Tab 1 TAB PO DAILY for 30 Days, #30 TAB 5 Refills Clopidogrel Bisulfate (Clopidogrel) 75 Mg Tab 75 MG PO QAM for 30 Days, #30 TAB 3 Refills Continued Medications: B-Complex Vitamins (Vitamin B Complex) 1 Tab Tab 1 TAB PO DAILY Bioflavonoid Products (Aditi-C) 1 Tab Tab 1 TAB PO DAILY Cholecalciferol (Vitamin D3) 1,000 Unit Tab 1 TAB PO DAILY, TAB 3 Refills Coenzyme Q10 (Ubidecarenone) (Co Q-10) 75 Mg Cap 1 CAP PO DAILY, CAP Loratadine (Claritin) 10 Mg Tab 10 MG PO DAILY, TAB Montelukast Sodium (Singulair) 10 Mg Tab 10 MG PO DAILY, TAB Discontinued Medications: Aspirin (Aspirin Ec) 81 Mg Tab 81 MG PO DAILY Atorvastatin (Lipitor) 10 Mg Tab 10 MG PO DAILY, TAB Niacin (Niacin) Unknown Strength Tab 2 TABS PO DAILY Discharge Exam Physical Exam: General Appearance: no apparent distress Eyes: EOMI ENT: hearing grossly normal Neck: trachea midline Respiratory/Chest: no respiratory distress, no accessory muscle use Extremities: normal inspection Neurologic/Psychiatric: cra officer II-XII nml as tested, alert, normal mood/affect Skin: normal color, warm/dry Hospital Course 47 yo M with HLD, HTN, FHX CVA, AFIB, p/w transient episode of aphagia , Rt arm weakness found to have MRI findings consistent posterior left frontal lobe infarct, with supraclavicular, mediastinal, and retropectoral adenopathy Acute cryptogenic CVA - CT Head negative - MRI confirms posterior left frontal lobe CVA - stable for home - ddx considerations were endocarditis (but blood cultures and TERRY negative); paradoxical embolism (no PFO/ASD on TERRY); PAF (no afib on monitor and no atrial dilation or clot on TERRY --> but will be doing event monitor and outpt f/u); common causes of stroke ruled out with no evidence of atherosclerotic disease/ no carotid disease Lipid Panel and HBA1C as above (appears would benefit from statin due to risks, although not directly related to current stroke) -cryptogenic stroke - treat with plavix for now, have tertiary neurology eval; close and ongoing PCP f/u (noted he wanted local non-VA PCP as well - this was arranged). notes high stress currently, prior chemical exposure in the , not taking care of himself well -- ??"soft" risk factors leading to a confluence of circumstances that allowed this to happen now? -Lyme panel neg =-hypercoag w/u pending - if any (+) would then change from plavix to anticoagulation Lymphadenopathy - nonspecific. because of concern for this being novelties sales representative of a malignancy that could allow for a hypercoagulable state that led to stroke --> this led to w/u -- CT chest with nonspecific adenopathy, CT abdomen did show ( again nonspecific) retroperitoneal nodes -for FNA of supraclavicular node (to be arranged as outpt as pt was stable for discharge and was not able to be arranged between radiology and pathology as inpatient - initial US scheduled for early next week with FNA to be scheduled in f/u if node able to be reached) -flow cytometry pending -outpt f/u Elevated WBCs (Neutrophil Predominance) Unknown etiology, will monitor, likely reactive. this, along w outpt fevers/ chills, and his subjective improvement when empiric abx were started wtih concern for endocarditis led to decision for empiric abx course; outpt f/u hyperlipidemia -atorvastatin due to risk reduction as above Allergy c/w Loratadine and Singulair QHS. DVT Proph: SCDs, ambulation Diet: Heart Healthy Dispo - Home Total Time Spent: Greater than 30 minutes This includes examination of the patient, discharge planning, medication reconciliation, and communication with other providers. Discharge Instructions Please refer to the electronic Patient Visit Report (Discharge Instructions) for additional information. Follow-Up scheduled: User: Rere Orlando SERV Date: 10/21/17 14:33 Type: Molecular Spectroscopist Notes armature inspector [facility]: DC instructions revised - "Please, follow up at [facility]'s Family Medicine Office in [place] (beside [facility]) with Desire Damon PA-C on WednesdayOctober 25 at 10:00 am (arrive 9:40 am). *If you need to change this appointment, call the office at [phone]. Please, follow up at [facility] on WednesdayOctober 25 at 2:00 pm (arrive at 1:30 pm) for an ultrasound of your neck. *There is no prep - just be sure to wear an open-neck shirt.* You will register at the main desk in the lobby of this [facility] at 1:30 pm. Please, follow up at [facility] - they will contact you regarding this appointment. You will need to take the disc (CD) containing your imaging reports with you to this appointment. If you have any questions, call the clinic [phone]. Please, be aware that you will be receiving a 30 day cardiac even monitor in the mail. It will contain instructions and a phone number, if you have any questions." I called [facility] and they request that the pt's records be faxed to their office for review. They will review the records and then contact the pt directly to arrange an appointment in their stroke clinic. Addendum: 10/21/17 at 1544 by [employer] Script for 30 day event monitor faxed to Judith at the [facility] fax number [phone]. Script for the neck ultrasound faxed to scheduling at [phone]. I called Dr. Beck's office and leave a message for her nurse, Sudha, regarding the above e.g., 30 day event monitor, ultrasound of neck, and follow up at [facility]. I informed her that the results from the testing will go to their office and upon receipt of the ultrasound results she may then need to order a FNA - per recommendation of Dr. Doe. I encouraged her to call me w/ any questions. The energy scheduler at [facility] said that the follow up bx or FNA will need to be ordered after the results of the ultrasound are obtained. Addendum: 10/21/17 at 1547 by [employer] I sent an email to medical records asking that the pt's records be faxed to The [facility] for review. The fax number is [phone]. Additional Copies To Desire Damon PA-C; Teresa Beck, ; Aleksey Dos Santos M.D.
[2017-10-23 15:36] LABS: ANA SCREEN TC 249X NEGATIVE (NEGATIVE)
--- NOTE | 2017-10-26 12:46 | Pharmacy Progress Note ---
Pharmacist Post D/C Phone Note Date of phone call: Oct 26, 2017. Individual with whom pharmacist spoke to: Van (patient) The following questions were reviewed during the phone call with responses listed below each: Can you tell me the medications that you are currently taking as well as when and how you take each medication? - Patient acknowledged taking all medications except for starting the hydrochlorothiazide which the physician told him to wait a couple of days When have you missed any doses of your medications? - Patient says he has not missed any doses, other than the hydrochlorothiazide. He is good with taking them. What side effects are you having from your medications? - Patient says he has not experienced any side effects What questions do you have about your medications? - Patient had question about what physician meant by "holding the hydrochlorothizide for a couple days". Patient has not been taking but was going to start after he finished antibiotics. I told the patient to follow up with his PCP as to if he should start sooner. Asked if he was having headaches/ signs of high blood pressure- he said no. What problems are you having obtaining your medications? - Patient had no problems obtaining medications When is your next appointment with your primary care doctor? - Patient had appointment yesterday, 10/25 with primary card doctor and reports a follow up next week. Additional comments: - Patient was called 5 days after discharge per patient's request As per the Pharmacist Discharge Counseling for Stroke Patients Protocol, this phone call has been completed within 72 hours of discharge. Thank you for allowing us to be involved in the care of this patient. OR The patient and/or patient traveling sales representative(s) were unable to be reached for a follow-up phone call within the 72 hour time frame. Discharge counseling pharmacist contact information has already been provided to the patient should questions arise. Thank you for allowing us to be involved in the care of this patient.
== END 2017-10-21 16:14 | disposition home or self-care (01) | DRG 65 ==
LOC: EDBD 22:07 → C.EDB 22:12 → EDBD 22:12 → C.EDB 22:15 → UNMERGE 22:15 → MERGE 22:15 → C.2T 10-19 00:11 → ENRESERV 10-19 00:24 → C.2T 10-19 00:41 → OBSVTOIN 10-19 18:20
PROVIDERS: ADMIT Family Medicine; ATTEND Family Medicine
DX: I63.8 Other cerebral infarction (principal); I38 Endocarditis, valve unspecified; R13.0 Aphagia; G83.21 Monoplegia of upper limb affecting right dominant side; R59.1 Generalized enlarged lymph nodes; D72.829 Elevated white blood cell count, unspecified; I10 Essential (primary) hypertension; E78.5 Hyperlipidemia, unspecified; J30.2 Other seasonal allergic rhinitis; F40.240 Claustrophobia; Z82.3 Family history of stroke; Z82.49 Family history of ischemic heart disease and other diseases of the circulatory system; Z79.82 Long term (current) use of aspirin; Z79.899 Other long term (current) drug therapy; Z88.2 Allergy status to sulfonamides

== ENCOUNTER → 2017-10-25 | Outpatient (CLI) | payer BC, OTHER ==
[~2017-10-25] MED LIST: ATOR-24 PO; B-COTAB18 PO; BIOF500T PO; CEFD1CAP14 PO; CHOL1000 PO; CLR10 PO; COEN75CA PO; HYDR25TA4 PO; MONT1TAB3 PO; PLV75 PO
[2017-10-25 14:44] LABS: BASO % 0.3 %; BASO ABS # 0.04 K/uL (0-0.2); EOS % 0.9 %; HEMATOCRIT 42.8 % (42-52); HEMOGLOBIN 15.1 g/dL (14.0-18.0); IG# 0.05 K/uL (0.00-0.02); LYMPH % 8.7 %; LYMPH ABS # 1.01 K/uL (1.2-3.4); MEAN CORPUSCULAR HEMOGLOBIN 31.4 pg (25-34); MEAN CORPUSCULAR HGB CONC 35.3 g/dl (32-36); MEAN PLATELET VOLUME 9.5 fL (7.4-10.4); MONO % 10.1 %; MONO ABS # 1.17 K/uL (0.11-0.59); NEUT % 79.6 %; NEUT ABS # 9.25 K/uL (1.4-6.5); PLATELET COUNT 282 K/uL (130-400); RED CELL DISTRIBUTION WIDTH CV 12.7 % (11.5-14.5); RED CELL DISTRIBUTION WIDTH SD 40.8 fL (36.4-46.3); WHITE BLOOD COUNT 11.62 K/uL (4.8-10.8)
--- NOTE | 2017-10-25 14:55 | DIAGNOSTIC IMAGING REPORT ---
NECK ULTRASOUND CLINICAL HISTORY: Lymphadenopathy. COMPARISON STUDY: Chest CT October 20, 2017. TECHNIQUE: Sonography of the neck was performed. FINDINGS: Note is made of multiple pathologically enlarged left lower cervical/supraclavicular lymph nodes which correspond to the enlarged lymph nodes shown on CT of October 20, 2017. The largest is a 1.6 cm node. These nodes demonstrate an abnormal round morphology and lack a fatty hilum. IMPRESSION: Multiple mildly enlarged pathologic left supraclavicular/lower cervical lymph nodes which correspond to the lymph nodes shown on prior chest CT. These are highly suggestive of a neoplastic process such as lymphoma or metastatic disease. These nodes are amenable to ultrasound-guided fine needle aspiration. Electronically signed by: Ronnie Goddard M.D. 10/25/2017 2:53 PM Dictated Date/Time: 10/25/2017 2:49 PM
[2017-10-25 15:11] LABS: ALBUMIN 3.5 gm/dl (3.4-5.0); ALT/SGPT 25 U/L (12-78); BLOOD UREA NITROGEN 13 mg/dl (7-18); CALCIUM 8.8 mg/dl (8.5-10.1); CARBON DIOXIDE 25 mmol/L (21-32); CREATININE 0.83 mg/dl (0.60-1.40); GLUCOSE 94 mg/dl (70-99); POTASSIUM 3.7 mmol/L (3.5-5.1); SODIUM 137 mmol/L (136-145)
[2017-10-25 15:14] LABS: ALKALINE PHOSPHATASE 91 U/L (45-117); AST/SGOT 15 U/L (15-37); TOTAL PROTEIN 7.4 gm/dl (6.4-8.2)
== END | disposition home or self-care (01) ==
LOC: C.ULTR 13:51
PROVIDERS: ATTEND Family Medicine
DX: R59.9 Enlarged lymph nodes, unspecified (principal)

== ENCOUNTER → 2017-11-08 | Outpatient (CLI) | payer BC, OTHER ==
[~2017-11-08] MED LIST changes: -CEFD1CAP14 PO
[2017-11-08 16:43] LABS: BASO % 0.3 %; BASO ABS # 0.03 K/uL (0-0.2); EOS ABS # 0.11 K/uL (0-0.5); HEMOGLOBIN 15.8 g/dL (14.0-18.0); IG# 0.04 K/uL (0.00-0.02); LYMPH % 9.2 %; LYMPH ABS # 1.06 K/uL (1.2-3.4); MEAN CELL VOLUME 89.3 fL (80-100); MEAN CORPUSCULAR HEMOGLOBIN 31.3 pg (25-34); MEAN CORPUSCULAR HGB CONC 35.1 g/dl (32-36); MEAN PLATELET VOLUME 10.2 fL (7.4-10.4); MONO ABS # 1.27 K/uL (0.11-0.59); NEUT % 78.2 %; NEUT ABS # 9.06 K/uL (1.4-6.5); PLATELET COUNT 251 K/uL (130-400); RED CELL DISTRIBUTION WIDTH SD 42.3 fL (36.4-46.3); WHITE BLOOD COUNT 11.57 K/uL (4.8-10.8)
[2017-11-08 16:58] LABS: ALBUMIN 3.5 gm/dl (3.4-5.0); ALT/SGPT 35 U/L (12-78); AST/SGOT 19 U/L (15-37); BLOOD UREA NITROGEN 12 mg/dl (7-18); CARBON DIOXIDE 30 mmol/L (21-32); CREATININE 0.98 mg/dl (0.60-1.40); GLUCOSE 102 mg/dl (70-99); POTASSIUM 3.4 mmol/L (3.5-5.1); SODIUM 134 mmol/L (136-145)
[2017-11-08 17:01] LABS: ALKALINE PHOSPHATASE 103 U/L (45-117); TOTAL PROTEIN 7.9 gm/dl (6.4-8.2)
== END | disposition home or self-care (01) ==
LOC: C.LABPBG 13:45
PROVIDERS: ATTEND Family Medicine
DX: D72.829 Elevated white blood cell count, unspecified (principal); R61 Generalized hyperhidrosis; R59.0 Localized enlarged lymph nodes

== ENCOUNTER → 2017-11-29 | Outpatient (CLI) | payer BC, OTHER ==
[~2017-11-29] MED LIST changes: +CZR25 PO; -HYDR25TA4 PO; +LACT1CAP6 PO; +RANI150T85 PO
--- NOTE | 2017-11-29 11:07 | DIAGNOSTIC IMAGING REPORT ---
GUIDANCE NEEDLE PLACEMENT ULTRASOUND-GUIDED FINE-NEEDLE ASPIRATION CLINICAL HISTORY: Supraclavicular adenopathy . COMPARISON STUDY: CTA of the chest 11/22/2017, ultrasound 10/25/2017. PROCEDURE: The risks, benefits, and alternatives to the procedure were discussed with the patient. Written informed consent was obtained. The patient was placed supine in ultrasound, and the 1.0 x 3.4 cm lymph node of the left supraclavicular distribution was localized by ultrasound and selected for fine needle aspiration. The left neck was prepped and draped in the usual sterile fashion. The nodule was aspirated under ultrasound guidance with 3 passes utilizing 25-gauge needles. The lymph node was in close proximity to the left internal jugular vein, therefore core needle biopsy was not conducted. Specimens were reviewed by the pathologist in real-time and deemed adequate for diagnosis. The patient tolerated the procedure well and left the department in satisfactory condition. IMPRESSION: Completed fine-needle aspiration of a a left supraclavicular lymph node as above. The above report was generated using voice recognition software. It may contain grammatical, syntax or spelling errors. Electronically signed by: Ramirez López M.D. 11/29/2017 11:06 AM Dictated Date/Time: 11/29/2017 11:03 AM
== END | disposition home or self-care (01) ==
LOC: C.ULTR 09:18
DX: R59.0 Localized enlarged lymph nodes (principal); C77.9 Secondary and unspecified malignant neoplasm of lymph node, unspecified

== ENCOUNTER → 2017-12-08 | Outpatient (CLI) | payer BC, OTHER ==
--- NOTE | 2017-12-08 17:59 | DIAGNOSTIC IMAGING REPORT ---
PET/CT SKULL-THIGH CLINICAL HISTORY: 47 years-old Male presenting with C80.1 malignant neoplasm, history of tobacco use, supraclavicular lymphadenopathy. TECHNIQUE: PET/CT was performed from the skull base through the proximal thighs following the intravenous administration of 10.122 mCi of F18-FDG. Blood glucose level 96 mg/dL. The injection was performed at 1:05 PM and imaging began at 2:[address] was performed for attenuation correction purposes and anatomic localization. COMPARISON: Ultrasound guided FNA from 11/29/2017 of a left supraclavicular lymph node. CT DOSE (mGy.cm): The estimated cumulative dose is 1156.30. FINDINGS: Head and neck: FDG avid bilateral supraclavicular lymphadenopathy. An index node on the right measures 11 mm in the short axis (series 2 image 52; max SUV 6.57) and an index node on the left measures 15 mm in the short axis (series 2 image 55; max SUV 8.49). Chest: Normal thyroid and thoracic inlet. Multiple pathologically enlarged FDG avid left axillary, mediastinal, bilateral hilar lymph nodes. Index left axillary lymph node measures 23 mm (series 2 image 69; max SUV 12.63), index mediastinal/subcarinal node measures 10 mm (series 2 image 90; max SUV 9.99), index right hilar lymph node (max SUV 6.06), and index left hilar lymph node (max issue view 9.95). Normal aorta. Normal heart size. No pericardial or pleural effusion. Minimal dependent changes likely atelectasis. No FDG avid focal nodule or infiltrate. Airways patent. Abdomen and pelvis: FDG avid retroperitoneal lymphadenopathy in the abdomen. An index left periaortic lymph node measures 16 mm in the short axis (series 2 image 167; max SUV 5.61). An index retrocrural caval lymph node measures 14 mm in the short axis (series 2 image 166; max SUV 7.67). No significant lymphadenopathy in the pelvis. Nonspecific retroperitoneal trace fluid and inflammatory change, which may be reactive. Small amount of abdominal pelvic ascites. Ascites is mildly FDG avid (max SUV 2.43 in comparison to bile max issue the 1.41 and liver parenchyma max SUV 3.10). The scrotum is not included within the [id number]. Diverticulosis of the proximal sigmoid colon. Prominent fat-containing umbilical hernia. Musculoskeletal: Tumoral calcinosis or other benign causes of heterotopic ossification noted in the region of the right ischium at the origin of the right hamstrings muscle complex. No FDG avid or destructive osseous lesion. Degenerative changes of the spine noted. IMPRESSION: 1. Initial PET/CT demonstrates multifocal lymphadenopathy involving the supraclavicular fossae, left axilla, mediastinum, bilateral stan, and extensively in the retroperitoneum of the abdomen. This is most suspicious for lymphoproliferative disease. Consider scrotal ultrasound to exclude the possibility of a testicular primary as the scrotum was not included within the [id number]. No PET/CT evidence of a primary site of disease apart from lymphadenopathy. 2. Mildly FDG avid ascites. This is nonspecific but could raise concern for metastatic involvement. Due to the volume of ascites, paracentesis may be difficult to safely perform. Consider ultrasound for further evaluation if clinically indicated. Electronically signed by: Newton Duncan M.D. 12/08/2017 5:58 PM Dictated Date/Time: 12/08/2017 4:19 PM
== END | disposition home or self-care (01) ==
LOC: C.PET 11:56
PROVIDERS: ATTEND Internal Medicine Hematology & Oncology
DX: C80.1 Malignant (primary) neoplasm, unspecified (principal); C77.1 Secondary and unspecified malignant neoplasm of intrathoracic lymph nodes

== ENCOUNTER 2018-02-01 12:08 | Inpatient (IN) | payer BC, OTHER ==
[~2018-02-01] VITALS: Ht 193 cm; Wt 106.5 kg
[~2018-02-01 12:08] MED LIST changes: -ATOR-24 PO; +ATOR10TA82 PO; -B-COTAB18 PO; -BIOF500T PO; -CHOL1000 PO; +CIPR1TAB10 PO; +CLOP1TAB15 PO; -COEN75CA PO; -CZR25 PO; +DXM/4 PO; +IMD2X PO; -LACT1CAP6 PO; +METO-157 PO; +MIRT15TA53 PO; +PANT40TA PO; -PLV75 PO; -RANI150T85 PO
[2018-02-01] MEDS ORDERED: SODIUM CHLORIDE 0.9% 500ML 500 ML IV STA (12:33)
--- NOTE | 2018-02-01 12:58 | DIAGNOSTIC IMAGING REPORT ---
CHEST ONE VIEW PORTABLE CLINICAL HISTORY: malaise dyspnea COMPARISON STUDY: 01/31/2018 FINDINGS: The bones soft tissues and hemidiaphragms are normal. The cardiomediastinal silhouette is normal. The lungs are clear. The pulmonary vasculature is normal. IMPRESSION: Negative chest. The above report was generated using voice recognition software. It may contain grammatical, syntax or spelling errors. Electronically signed by: Wang Rutledge M.D. 02/01/2018 12:56 PM Dictated Date/Time: 02/01/2018 12:56 PM
--- NOTE | 2018-02-01 14:08 | EMERGENCY ROOM VISIT NOTE ---
History First contact with patient: 12:12 Chief Complaint: ILLNESS Stated Complaint: WEAKNESS, SHAKEY, TIRED History of Present Illness The patient is a 47 year old male who presents to the Emergency Room with complaints of fatigue/malaise and shakiness that started this morning when he woke up. The patient has a history of metastatic cancer with an unknown primary source. He is currently being followed at the [facility]. The patient has needed numerous paracentesis for therapeutic purposes. His last paracentesis was done in the emergency department yesterday. After being discharged from our emergency department yesterday, the patient reports feeling well. He was able to eat and drink. He was able to climb steps. His symptoms of weakness and shakiness started this morning. He denies any other symptoms such as chest pain, shortness of breath, severe headaches, abdominal pain, urinary symptoms or changes in bowel movements. He has a follow-up appointment scheduled with his GI doctor in [facility] in 2 days. 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 (12) Weakness Family History Stroke Social History Smoking Status: Never Smoker Drug Use: none Marital Status: Housing Status: lives with significant other Occupation Status: disabled Current/Historical Medications Scheduled Atorvastatin (Lipitor), 10 MG PO DAILY Ciprofloxacin Hcl (Cipro), 500 MG PO BID Clopidogrel (Plavix), 75 MG PO DAILY Dexamethasone (Decadron), 2 MG PO BID Loperamide Hcl (Imodium), 2 MG PO QID Loratadine (Claritin), 10 MG PO DAILY Metoclopramide (Reglan), 10 MG PO ACHS Mirtazapine (Mirtazapine), 15 MG PO HS Montelukast Sodium (Singulair), 10 MG PO DAILY Pantoprazole (Protonix), 40 MG PO DAILY Physical Exam Vital Signs Date Time Temp Pulse Resp B/P (MAP) Pulse Ox O2 Delivery O2 Flow Rate FiO2 02/01/18 16:31 59 16 123/76 96 Room Air 02/01/18 14:16 65 18 98/56 96 Room Air 02/01/18 12:13 36.6 109 16 137/82 100 Room Air Physical Exam VITALS: Vitals are noted on the nurse's note and reviewed by myself. Vital signs stable. GENERAL: 47-year-old male, pale in appearance,, in no acute distress, nondiaphoretic, well-developed well-nourished. SKIN: The skin was pale as noted above. Ecchymosis noted to both arms. HEAD: Normocephalic atraumatic. EYES: Conjunctivae without injection, sclerae without icterus. Extraocular movements intact. MOUTH: Mucous membranes slightly dry. No exudate noted. NECK: Supple without nuchal rigidity. No JVD. HEART: Regular rate and rhythm without murmurs gallops or rubs. LUNGS: Clear to auscultation bilaterally without wheezes, rales or rhonchi. No accessory muscle use. ABDOMEN: Positive bowel sounds x 4. Mild distention noted, but soft. Mild tenderness to palpation noted in the right lower quadrant. No guarding or rebound tenderness. Negative Rovsing sign. MUSCULOSKELETAL: Trace pitting edema in the lower extremities bilaterally without any erythema, tenderness or warmth appreciated. No focal weakness noted. Strength 5/5 throughout. NEURO: Patient was alert and oriented to person place and time. Normal sensation to touch. No focal neurological deficits. Medical Decision & Procedures ER Provider Diagnostic Interpretation: CT abd/pelvis w/o contrast IMPRESSION: 1. Decreased size of the bilateral pleural effusions, now small to moderate on the left and trace on the right. Trace pericardial effusion is also noted. 2. Mild generalized body wall edema with moderate abdominal pelvic ascites. 3. Redemonstration of pathologically enlarged retroperitoneal and bilateral iliac chain adenopathy suggestive of metastatic disease. 4. Innumerable sclerotic bony metastasis again noted. 5. Nonobstructing bilateral nephrolithiasis. 6. No pneumatosis or pneumoperitoneum. Electronically signed by: Ramirez López M.D. 02/01/2018 3:10 PM Dictated Date/Time: 02/01/2018 3:01 PM The status of this report is Signed. Draft = Not yet reviewed or approved by Radiologist. Signed = Reviewed and approved by Radiologist. <AttendingPhy></AttendingPhy> <FamilyPhy></FamilyPhy> <PrimaryPhy>Ricotta, Teresa M., DO</PrimaryPhy> <UnitNumber>[id number]</UnitNumber> <VisitNumber> [id number]</VisitNumber> <PatientName>DENG Chest x-ray IMPRESSION: Negative chest. The above report was generated using voice recognition software. It may contain grammatical, syntax or spelling errors. Electronically signed by: Wang Rutledge M.D. 02/01/2018 12:56 PM Dictated Date/Time: 02/01/2018 12:56 PM The status of this report is Signed. Draft = Not yet reviewed or approved by Radiologist. Signed = Reviewed and approved by Radiologist. Laboratory Results 02/01/18 13:35 Red Blood Count 2.93, Mean Corpuscular Volume 87.7, Mean Corpuscular Hemoglobin 28.7, Mean Corpuscular Hemoglobin Concent 32.7, Mean Platelet Volume 9.8 02/01/18 13:35 Test 02/01/18 12:45 02/01/18 13:35 Urine Color YELLOW Urine Appearance CLEAR (CLEAR) Urine pH 5.0 (4.5-7.5) Urine Specific [place] 1.019 (1.000-1.030) Urine Protein TRACE (NEG) Urine Glucose (UA) NEG (NEG) Urine Ketones NEG (NEG) Urine Occult Blood NEG (NEG) Urine Nitrite NEG (NEG) Urine Bilirubin NEG (NEG) Urine Urobilinogen NEG (NEG) Urine Leukocyte Esterase NEG (NEG) Urine WBC (Auto) 5-10 /hpf (0-5) Urine RBC (Auto) 0-4 /hpf (0-4) Urine Hyaline Casts (Auto) 0 /lpf (0-5) Urine Epithelial Cells (Auto) 0-5 /lpf (0-5) Urine Bacteria (Auto) NEG (NEG) Urine Crystals URIC ACID (NONE PRSENT) Urine Yeast (Auto) (NONE PRSENT) White Blood Count 34.15 K/uL (4.8-10.8) Red Blood Count 2.93 M/uL (4.7-6.1) Hemoglobin 8.4 g/dL (14.0-18.0) Hematocrit 25.7 % (42-52) Mean Corpuscular Volume 87.7 fL (80-100) Mean Corpuscular Hemoglobin 28.7 pg (25-34) Mean Corpuscular Hemoglobin Concent 32.7 g/dl (32-36) Platelet Count 258 K/uL (130-400) Mean Platelet Volume 9.8 fL (7.4-10.4) RDW Standard Deviation 45.2 fL (36.4-46.3) RDW Coefficient of Variation 14.4 % (11.5-14.5) Nucleated RBC Absolute Count (auto) 0.08 K/uL (0-0) Neutrophils % (Manual) 91.3 % Lymphocytes % (Manual) 0.9 % Monocytes % (Manual) 2.6 % Metamyelocytes % 4.3 % Myelocytes % 0.9 % Nucleated Red Blood Cells % 0.2 % Neutrophils # (Manual) 31.18 K/uL (1.4-6.5) Total Absolute Neutrophils 31.18 K/uL (1.4-6.5) Lymphocytes # (Manual) 0.31 K/uL (1.2-3.4) Total Absolute Lymphocytes 0.31 K/uL (1.2-3.4) Monocytes # (Manual) 0.89 K/uL (0.11-0.59) Metamyelocytes # 1.47 K/uL (0-0) Myelocytes # 0.31 K/uL (0-0) Toxic Granulation 1+ Dohle Bodies 1+ Polychromasia 1+ Anisocytosis PRESENT Anion Gap 9.0 mmol/L (3-11) Estimated GFR () 44.0 Estimated GFR (Non- 38.0 BUN/Creatinine Ratio 11.4 (10-20) Lactic Acid Level 2.6 mmol/L (0.4-2.0) Calcium Level 5.7 mg/dl (8.5-10.1) Magnesium Level 1.5 mg/dl (1.8-2.4) Total Bilirubin 0.2 mg/dl (0.2-1) Aspartate Amino Transf (AST/SGOT) 24 U/L (15-37) Alanine Aminotransferase (ALT/SGPT) 23 U/L (12-78) Alkaline Phosphatase 741 U/L (45-117) Total Protein 5.1 gm/dl (6.4-8.2) Albumin 1.9 gm/dl (3.4-5.0) Globulin 3.2 gm/dl (2.5-4.0) Albumin/Globulin Ratio 0.6 (0.9-2) Medications Administered Medications (Trade) Dose Ordered Sig/Suraj Route Start Time Stop Time Status Last Admin Dose Admin Sodium Chloride 500 ml @ 999 mls/hr Q31M STAT IV 02/01/18 12:33 02/01/18 13:03 DC 02/01/18 14:00 999 MLS/HR Vancomycin HCl 1000 mg/Sodium Chloride 270 ml @ 125 mls/hr NOW STAT IV 02/01/18 14:53 02/01/18 17:02 DC 02/01/18 15:58 125 MLS/HR Piperacillin Sod/ Tazobactam Sod 3.375 gm/Dextrose 115 ml @ 230 mls/hr NOW ONCE IV 02/01/18 15:15 02/01/18 15:44 DC 02/01/18 15:29 230 MLS/HR Potassium Chloride 100 ml @ 100 mls/hr NOW STAT IV 02/01/18 15:41 02/01/18 16:40 DC 02/01/18 15:59 100 MLS/HR Magnesium Sulfate 100 ml @ 100 mls/hr NOW STAT IV 02/01/18 15:41 02/01/18 16:40 DC 02/01/18 15:59 100 MLS/HR ED Course Patient was seen and examined Vital signs including blood pressure were reviewed medications list was verified with patient Labs were obtained, and a saline lock was established The patient was hydrated with 500 cc of normal saline The case was discussed with my supervising physician who is in agreement with my plan Imaging was performed and reviewed The patient was reassessed. We discussed his workup. He voiced understanding. He was in agreement with staying. Unfortunately, the patient at this time also voiced suicidal ideations over the last several days. He asked his significant other to take all of the weapons out of the house. The patient was evaluated by the psychiatric liaison. I spoke with the patient's buying intern/oncologist at [facility] The patient was ordered magnesium sulfate 1 g and potassium 10 meq once IV. The case was discussed with the [facility] hospitalist group who kindly agreed to keep the patient for further workup and treatment Medical Decision Differential diagnosis: Dehydration, electrolyte abnormality, profound anemia, infectious etiology such as peritonitis, metabolic disorders, acute on chronic renal failure This patient is a 47-year-old male with a history of metastatic cancer, unknown primary that presented to the emergency department complaining of weakness and tremor starting this morning. The patient was seen in the emergent yesterday for abdominal distention where a paracentesis was performed. 5 L were removed. The patient was also treated with albumin, and discharged home. Initially, he felt well until this morning. Today on exam, he appeared slightly dehydrated. He did have a fine tremor. His abdomen was distended with ascites fluid however it was soft. His lab work reveals hypomagnesia, hypokalemia and anemia. The patient also had a slightly elevated lactate. The etiology of this is unclear. I was concerned, given the recent paracentesis, that there may be an abdominal abnormality. A CT scan was performed. No acute changes were noted. Unfortunately, the patient is very weak. I believe his electrolyte imbalances, lack of p.o. intake and underlying chronic illnesses will make it difficult for the patient to go home safely. The case was discussed with Dr. Rodríguez [phone] from the [facility]. She supported keeping the patient at [facility] for further treatment. She did not see a need for emergent transfer. This was discussed with the [facility] hospitalist group. They kindly agreed to keep the patient overnight for further treatment. Of note, the patient was also having suicidal thoughts. The patient was evaluated by the psychiatric liaison in the emergency department. This will likely need further treatment. [facility] Primary Impression: Weakness Departure Information Referrals Teresa Beck DO (PCP) Patient Instructions My [facility]
[2018-02-01 14:18] LABS: ALBUMIN 1.9 gm/dl (3.4-5.0); ALKALINE PHOSPHATASE 741 U/L (45-117); ALT/SGPT 23 U/L (12-78); AST/SGOT 24 U/L (15-37); BLOOD UREA NITROGEN 23 mg/dl (7-18); CALCIUM 5.7 mg/dl (8.5-10.1); CARBON DIOXIDE 23 mmol/L (21-32); CREATININE 2.04 mg/dl (0.60-1.40); GLUCOSE 117 mg/dl (70-99); POTASSIUM 3.1 mmol/L (3.5-5.1); SODIUM 135 mmol/L (136-145); TOTAL PROTEIN 5.1 gm/dl (6.4-8.2)
[2018-02-01 14:22] LABS: HEMATOCRIT 25.7 % (42-52); HEMOGLOBIN 8.4 g/dL (14.0-18.0); MEAN CELL VOLUME 87.7 fL (80-100); MEAN CORPUSCULAR HEMOGLOBIN 28.7 pg (25-34); MEAN CORPUSCULAR HGB CONC 32.7 g/dl (32-36); MEAN PLATELET VOLUME 9.8 fL (7.4-10.4); NUCLEATED RED BLOOD CELL ABS 0.08 K/uL (0-0); PLATELET COUNT 258 K/uL (130-400); RED CELL DISTRIBUTION WIDTH CV 14.4 % (11.5-14.5); RED CELL DISTRIBUTION WIDTH SD 45.2 fL (36.4-46.3); WHITE BLOOD COUNT 34.15 K/uL (4.8-10.8)
[2018-02-01] MEDS ORDERED: VANCOMYCIN IV 1,000 MG in SODIUM CHLORIDE 0.9% 250ML 250 ML IV STA (14:53)
[2018-02-01] MEDS ORDERED: PIPERACILLIN/TAZOBACTAM 3.375 GM/100ML D5W IV STA (14:53)
[2018-02-01] MEDS ORDERED: VANCOMYCIN CONSULT ACTIVE PRN ×2 (15:00→19:30)
--- NOTE | 2018-02-01 15:11 | DIAGNOSTIC IMAGING REPORT ---
ABDOMEN AND PELVIS CT WITHOUT CONTRAST CT DOSE: 1192.75 mGy.cm HISTORY: Acute right lower quadrant abdominal pain. RLQ abd pain tap yesterday hx met CA TECHNIQUE: Multiaxial CT images of the abdomen and pelvis were performed without contrast. A dose lowering technique was utilized adhering to the principles of ALARA. COMPARISON STUDY: CT abdomen and pelvis 01/19/2018. FINDINGS: Small to moderate left pleural effusion, decreased in size from comparison. Decreased size of right pleural effusion with trace residual fluid within the right hemithorax. Subsegmental bibasilar opacities suggest atelectasis. There is no pneumatosis or pneumoperitoneum identified. Imaged inferior cardiac chambers are unremarkable. Trace pericardial effusion. Evaluation of the solid abdominal organs is limited without use of IV contrast. A 6 mm density lesion of the right hepatic lobe suggests probable hepatic cyst. No intrahepatic biliary ductal dilation. Spleen is mildly enlarged, 13.6 cm in length. Pancreas and adrenal glands are unremarkable. The gallbladder is mildly contracted. 3 mm nonobstructing calculus of the inferior pole right kidney. Punctate nonobstructing calculus of the inferior pole left kidney. Mild bilateral nonspecific perinephric stranding. No significant ureteral dilation identified. Bladder and prostate are unremarkable. Small fat filled left inguinal hernia contains trace fluid. No aortic aneurysm. Retroperitoneal and iliac chain adenopathy redemonstrated. Periaortic lymph nodes measure up to 1.2 cm. Mildly prominent lymph nodes about the mid mesentery are also noted. Wall thickening about the distal esophagus redemonstrated. There is no bowel obstruction. There is decreased bowel wall thickening involving the jejunum as described on comparison study. Colonic diverticulosis without diverticulitis. Moderate formed stool about the right hemicolon. Moderate abdominopelvic ascites. Fat and fluid filled periumbilical hernia, diastases 2.3 cm. Mild generalized body wall edema. Numerable sclerotic metastasis again noted throughout the axial and appendicular skeletal system. Sclerotic bone fragments about the fistula tuberosities, right greater than left suggest sequela of remote trauma. No acute pathologic fracture. Grade 1 anterolisthesis L3 on L4 is likely on a degenerative basis with remote bilateral pars defects. IMPRESSION: 1. Decreased size of the bilateral pleural effusions, now small to moderate on the left and trace on the right. Trace pericardial effusion is also noted. 2. Mild generalized body wall edema with moderate abdominal pelvic ascites. 3. Redemonstration of pathologically enlarged retroperitoneal and bilateral iliac chain adenopathy suggestive of metastatic disease. 4. Innumerable sclerotic bony metastasis again noted. 5. Nonobstructing bilateral nephrolithiasis. 6. No pneumatosis or pneumoperitoneum. Electronically signed by: Ramirez López M.D. 02/01/2018 3:10 PM Dictated Date/Time: 02/01/2018 3:01 PM
[2018-02-01] MEDS ORDERED: PIPERACILL/TAZOBAC IV 3.375 GM in D5W 100 ML IV ONE (15:15)
[2018-02-01] MEDS ORDERED: MAGNESIUM SULFATE 1GM / D5W 100 ML IV STA (15:41)
[2018-02-01] MEDS ORDERED: POTASSIUM CHLR 10 MEQ / WTR 100 ML IV STA (15:41)
[2018-02-01] MEDS ORDERED: ZOLPIDEM TARTRATE 5 MG TAB PO PRN (18:15)
[2018-02-01] MEDS ORDERED: PIPERACILL/TAZOBAC CONSULT ACTIVE PRN (19:30)
--- NOTE | 2018-02-01 19:54 | Progress Note ---
Progress Note Date of Service Feb 01, 2018. Progress Note For full attending attestation, see resident documentation and accompanying notes. Pt seen and examined at bedside. Continues to complain about feeling shaky/weak which onset shortly following waking and moving about the house. Described as separate from the overwhelming feeling of guilt and fatigue that he associates with being home and unable to contribute to his life in the capacity he desires. He denies other accompanying symptoms aside from his SOB and abdominal distention, which have been chronic. He espouses some suicidal ideation with plan which he circumvented (firearms, removed). He is reaching out for help and feels somewhat unsafe at home because of his condition. On examination, S1/S2 nl RRR no MCG. CTAB with some decreased BS of the b/l bases. Abd is NT and mildly distended following tap but without overt TTP appreciated. Trace to 1+ pitting edema of the b/l LE. At present, would admit for electrolyte management in the setting of recent ATN and metastatic adenocarcinoma with tumor lysis syndrome with consultations for nephrology and oncology. His is looking forward to talking with Dr. Carson. He is also open to discussing his feelings with psychiatry, and a consultation has been placed. His electrolytes are repleted as per the orders noted. He will be gently hydrated briefly, but will be doing mostly through PO hydration to avoid worsening ascites. Abx for SBP as noted in resident note awaiting cultures from fluid and blood. Obtain records from [facility] for interim management.
--- NOTE | 2018-02-01 20:03 | Family Medicine Progress Note ---
Progress Note Date of Service Feb 01, 2018. Subjective Pt evaluation today including: conversation w/ patient, physical exam, chart review, lab review, conversation w/ content management consultant Pain: 0/10 PO Intake: tolerating PO Voiding: no voiding problems Patient was lying in bed when I interviewed him. Patient reported feeling depressed and anxious regarding his upcoming appointment with [facility].Patient endorsed subjective feeling of weakness. He also reported feeling of guilt and defeat regarding the need for his family to care for him. Patient requested a to speak to someone regarding these feelings. Constitutional: + weight loss (since diagnosis), + weakness (s/p paracentisis), + fatigue (s/p paracentsis), No fever, No chills, No sweats Respiratory: + shortness of breath (s/p paracentisis), No cough, No sputum, No wheezing Cardiovascular: No chest pain, No PND Abdomen: No pain, No nausea, No vomiting, No diarrhea, No constipation Musculoskeletal: No calf pain Psychiatric: + depression symptoms, + anxiety, + insomnia All Other Systems: Reviewed and Negative Medications Current Inpatient Medications Medications (Trade) Dose Ordered Sig/Suraj Route Start Time Stop Time Status Last Admin Dose Admin Vancomycin HCl (Consult) 1 ea UD PRN N/A 02/01/18 15:00 03/03/18 14:59 Enoxaparin Sodium (Lovenox Inj) 40 mg Q24H SQ 02/01/18 18:15 03/03/18 18:14 UNV Zolpidem Tartrate (Ambien Tab) 2.5 mg HSZ PRN PO 02/01/18 18:15 03/03/18 18:14 Ondansetron HCl (Zofran Inj) 4 mg Q6H PRN IV 02/01/18 18:15 03/03/18 18:14 Magnesium Sulfate 100 ml @ 100 mls/hr NOW ONCE IV 02/01/18 18:45 02/01/18 19:44 UNV Calcium Gluconate 2000 mg/Sodium Chloride 70 ml @ 240 mls/hr NOW ONCE IV 02/01/18 18:45 02/01/18 19:02 UNV Potassium Chloride (Klor-Con Tab) 20 meq NOW ONCE PO 02/01/18 20:00 02/01/18 20:01 UNV Potassium Chloride (Klor-Con Tab) 20 meq QAM PO 02/02/18 09:00 8/17/18 08:59 UNV Atorvastatin Calcium (Lipitor Tab) 10 mg DAILY PO 02/02/18 09:00 03/04/18 08:59 UNV Clopidogrel Bisulfate (plAVix TAB) 75 mg DAILY PO 02/02/18 09:00 03/04/18 08:59 UNV Dexamethasone (Decadron Tab) 2 mg BID PO 02/01/18 21:00 03/03/18 20:59 UNV Loratadine (Claritin Tab) 10 mg DAILY PO 02/02/18 09:00 03/04/18 08:59 UNV Mirtazapine (Remeron Solutab) 15 mg HS PO 02/01/18 21:00 03/03/18 20:59 UNV Montelukast Sodium (Singulair Tab) 10 mg DAILY PO 02/02/18 09:00 03/04/18 08:59 UNV Pantoprazole Sodium (Protonix Tab) 40 mg DAILY PO 02/02/18 09:00 03/04/18 08:59 UNV Objective Physical Exam General Appearance: WD/WN, no apparent distress Eyes: normal inspection, sclerae normal ENT: hearing grossly normal Neck: supple, thyroid normal, no JVD, trachea midline Respiratory/Chest: chest non-tender, lungs clear, normal breath sounds, no respiratory distress, no accessory muscle use Cardiovascular: regular rate, rhythm, no gallop, no JVD, no murmur Abdomen: normal bowel sounds, non tender, no pulsatile mass Extremities: + pedal edema (1+) Neurologic/Psychiatric: alert, + depressed affect Skin: normal color, warm/dry, no rash Laboratory Results Last Resulted 02/01/18 13:35 Red Blood Count 2.93, Mean Corpuscular Volume 87.7, Mean Corpuscular Hemoglobin 28.7, Mean Corpuscular Hemoglobin Concent 32.7, Mean Platelet Volume 9.8 Last Resulted 02/01/18 13:35 Assessment and Plan IV ABX to PPX against SBP - Recent hx of paracentesis given Ca DX, ppx against sbp - vancomycin 2g q12 - zosyn 3.375 g q12 -F/U Cx Hypokalemia -20 meq by mouth now, 20 meq daily -trend K+ levels daily Hypomagnesemia -2g MgSO4 IV now -Trend Mg levels daily Hypocalcemia -2g Ca gluconate IV now -Trend Ca levels daily Metastatic AdenoCarcinoma of unknown orgin -PSA to rule out prostate as orgin, per uptodate,"Metastatic prostate cancer should be suspected in men with adenocarcinoma predominantly involving bone, particularly if the metastases are blastic or sclerotic" -F/U medical records from [facility] -Consulted Heme/Onc -Consulted Psych -Consulted Nephro -Hypoalbuminemia 2/2 AdenoCa trend CMP Acute on chronic BRYNN in the setting of ATN and tumor lysis syndrome -Nephro Consulted -Trending BMP -Trending PO4 -Avoid Nephrotoxic Medications Hyperlipidemia -resumed home statin FULL CODE DVT: Lovenox Diet: Regular Continued [facility] stay due to: multiple IV medications needed Discharge planning: home Resident Tracking Resident Involvement: Resident Care Provided Care Provided: Adult [facility] Medicine Assessment/Plan Resident Physician Supervision Note: I was present with Dr. Leon during the history and exam. I discussed the case with the resident and agree with the findings and plan as documented in the note. Any exceptions or clarifications are listed here: Pt seen and examined at bedside. No acute events overnight. Gradual improvement in weakness and tremulousness. Mood is significantly improved after d/w psychiatry and Dr. Carson. Still desires to pursue aggressive treatment if possible. On examination, S1/S2 nl RRR no MCG. CTAB. Abd is mildly TTP inferiorly and mildly distended c/w early return of ascites. Metastatic adenocarcinoma - oncology consultation appreciated - after discussion w/ [facility], suspicion of GI origin based on previous bx and intention to start chemotherapy based on same. Considering recent electrolyte abn and ATN w/ tumor lysis syndrome, will monitor lytes closely during induction phase. Electrolyte disturbances - nephrology consultation appreciated - continue repletion and fluid management h/o TIA - will d/c Plavix in order to be ready to paracentesis if needed. Avg between taps has been ~7-10 days, last tap on January 31. Adjustment disorder w/ insomnia - psychiatric consultation appreciated - encouraged by improvement in mood while inpatient, denies SI/HI. Agree w/ increased mirtazapine. Ambien remains available PRN qHS. Revisit addition of SSRI as needed during therapy. HLD - continue statin therapy
[2018-02-01 20:21] VITALS: BP 126/87; PULSE 100; TEMP 37.4; O2SAT 97; Ht 193 cm; Wt 106.5 kg
[2018-02-01] MEDS ORDERED: PATIENT'S HEIGHT AND/OR WEIGHT NEEDED SCH (20:30)
[2018-02-01] MEDS ORDERED: POTASSIUM CHLORIDE 20 MEQ TABCR PO ONE (21:00)
[2018-02-01] MEDS ORDERED: MIRTAZAPINE SOLTAB 15 MG PO SCH (21:00)
[2018-02-01] MEDS: MONTELUKAST SOD 10 MG TAB PO SCH (21:14)
[2018-02-01] MEDS: DEXAMETHASONE 4 MG TAB PO SCH (21:14)
[2018-02-01] MEDS ORDERED: VANCOMYCIN IV 1,000 MG in SODIUM CHLORIDE 0.9% 250ML 250 ML IV ONE (21:30)
[2018-02-01] MEDS ORDERED: CALCIUM GLUCONATE 10% 2,000 MG in SODIUM CHLORIDE 0.9% 50ML 50 ML IV ONE (21:30)
--- NOTE | 2018-02-01 21:47 | Pharmacy Progress Note ---
Pharmacy Abx Initial Consult Date of Service Feb 01, 2018. Pharmacy Dosing Scope Date of Consult: 02/01/18 Consultation requested by: Dr. Eron Leon Pharmacy is consulted to initiate vancomycin and Zosyn IV dosing therapy, order appropriate labs and adjust drug dose/frequency. Subjective The patient is a 47 year old male admitted on Feb 01, 2018 at 18:17. Objective Height (Feet): 6 Height (Inches): 4.00 Weight (Kilograms): 108.500 Vital Signs (Past 12Hrs) Vital Signs Past 12 Hours Date Time Temp Pulse Resp B/P (MAP) Pulse Ox O2 Delivery O2 Flow Rate FiO2 02/01/18 20:21 37.4 100 16 126/87 97 Room Air 02/01/18 18:45 36.6 61 18 125/74 97 02/01/18 18:28 61 18 125/74 97 Room Air 02/01/18 16:31 59 16 123/76 96 Room Air 02/01/18 14:16 65 18 98/56 96 Room Air 02/01/18 12:13 36.6 109 16 137/82 100 Room Air Lab Results (24Hrs) Laboratory Tests (24 Hours) Test 02/01/18 13:35 Lactic Acid Level 2.6 mmol/L (0.4-2.0) *H White Blood Count 34.15 K/uL (4.8-10.8) *H Red Blood Count 2.93 M/uL (4.7-6.1) L Hemoglobin 8.4 g/dL (14.0-18.0) L Hematocrit 25.7 % (42-52) L Mean Corpuscular Volume 87.7 fL (80-100) Mean Corpuscular Hemoglobin 28.7 pg (25-34) Mean Corpuscular Hemoglobin Concent 32.7 g/dl (32-36) Platelet Count 258 K/uL (130-400) Mean Platelet Volume 9.8 fL (7.4-10.4) Micro Results Date/Time Source Procedure Growth Status 02/01/18 14:22 Blood Blood Culture Pending Received 02/01/18 13:35 Blood Blood Culture Pending Received Risk Factors for Resistance * Immunocompromised Assessment & Plan Assessment 47 year old male admitted and initiated on broad-spectrum antibiotics for SBP prophylaxis. Recent diagnosis of metastatic adenocarcinoma. Plan Vancomycin IV * Loading dose: 2000 mg - 1000 mg x 2 doses (18.4 mg/kg) * Maintenance dose: 1500 mg IV (13.8 mg/kg) every 14 hours * Goal trough level : 15 to 20 mcg/mL * Trough level will need to be ordered with 3rd or 4th dose if vancomycin to be continued Piperacillin/tazobactam * 3.375 g bolus administered over 30 minutes, then 3.375 g IV extended infusion every 8 hours for CrCl greater than 20 mL/min Pharmacy will continue to follow and will adjust dose/frequency as necessary. Thank you.
[2018-02-01] MEDS ORDERED: PIPERACILL/TAZOBAC IV 3.375 GM in D5W 100ML IV SCH (22:00)
[2018-02-01] MEDS: ENOXAPARIN 40 MG/0.4 ML SYR SQ SCH (22:14)
[2018-02-01] MEDS: PIPERACILL/TAZOBAC IV 3.375 GM in DEXTROSE 5% 100ML 100 ML IV SCH (22:36)
[2018-02-01] MEDS: MAGNESIUM SULFATE 1GM / D5W 100 ML IV SCH ×2 (22:36→23:48)
[2018-02-01 23:22] VITALS: BP 103/65; PULSE 96; TEMP 36.7; O2SAT 96
[2018-02-02] VITALS (7 sets, daily range): BP systolic 105–137; BP diastolic 69–86; PULSE 96–114; TEMP 36.5–37.5; O2SAT 93–99
[2018-02-02] MEDS: PIPERACILL/TAZOBAC IV 3.375 GM in DEXTROSE 5% 100ML 100 ML IV SCH (05:34)
[2018-02-02 06:52] LABS: ALBUMIN 1.8 gm/dl (3.4-5.0); CREATININE 1.96 mg/dl (0.60-1.40); PHOSPHORUS 3.4 mg/dl (2.5-4.9); POTASSIUM 3.3 mmol/L (3.5-5.1); TOTAL PROTEIN 4.8 gm/dl (6.4-8.2)
[2018-02-02] MEDS: ATORVASTATIN 10 MG TAB PO SCH (08:09)
[2018-02-02] MEDS: DEXAMETHASONE 4 MG TAB PO SCH ×2 (08:09→20:37)
[2018-02-02] MEDS: LORATADINE 10 MG TAB PO SCH (08:09)
[2018-02-02] MEDS: POTASSIUM CHLORIDE 20 MEQ TABCR PO SCH (08:09)
[2018-02-02] MEDS: PANTOprazole SOD 40 MG TAB PO SCH (08:10)
[2018-02-02] MEDS: CLOPIDOGREL BISULFATE 75 MG TAB PO SCH ×2 (08:10→08:12)
[2018-02-02 08:24] LABS: HEMATOCRIT 25.1 % (42-52); HEMOGLOBIN 8.3 g/dL (14.0-18.0); MEAN CORPUSCULAR HEMOGLOBIN 29.4 pg (25-34); MEAN CORPUSCULAR HGB CONC 33.1 g/dl (32-36); MEAN PLATELET VOLUME 9.7 fL (7.4-10.4); NUCLEATED RED BLOOD CELL ABS 0.12 K/uL (0-0); PLATELET COUNT 271 K/uL (130-400); RED CELL DISTRIBUTION WIDTH SD 45.9 fL (36.4-46.3); WHITE BLOOD COUNT 26.26 K/uL (4.8-10.8)
[2018-02-02] MEDS ORDERED: POTASSIUM CHLORIDE 10 MEQ TABCR PO STA (08:48)
[2018-02-02] MEDS ORDERED: CALCIUM GLUCONATE 10% 1,000 MG in SODIUM CHLORIDE 0.9% 50ML 50 ML IV STA (08:48)
[2018-02-02 08:49] LABS: BASO % 0.3 %; BASO ABS # 0.07 K/uL (0-0.2); LYMPH % 1.8 %; LYMPH ABS # 0.46 K/uL (1.2-3.4); MONO % 8.1 %; MONO ABS # 2.13 K/uL (0.11-0.59); NEUT % 81.4 %
[2018-02-02] MEDS ORDERED: VANCOMYCIN IV 1,500 MG in SODIUM CHLORIDE 0.9% 500ML 500 ML IV SCH (10:00)
--- NOTE | 2018-02-02 10:59 | Nephrology Consultation ---
Nephrology Consultation Date & Providers Date of Consultation: Feb 02, 2018. Primary Care Provider: Teresa Beck DO Referring Provider: Reason for Consultation Renal insufficiency, multiple electrolyte abnormalities History of Present Illness Mr. Juárez is a 47 year-old male with advanced metastatic adenocarcinoma. He has malignant ascites and pleural effusion. He was recently admitted to [facility] earlier this month. Hospitalization complicated by BRYNN/ATN. Medical history is notable for hypertension, hyperlipidemia and Murphy's esophagus. In 11/03 he acutely developed R arm & facial paralysis and aphasia. Evaluation revealed metastatic carcinoma of unknown primary. His Oncologist is Dr. Carson. It is presumed that the malignancy is either testicular or intestinal. Mr. Juárez has completed five courses of Carboplatin / Etoposide. His last dose was 01/14/18. He presented to [facility] 01/19/18 w/ recurrent N&V. Abdominal CT w/ IV contrast revealed progressive disease w/ abdominal LAD and osseous metastasis. Mild L sided hydronephrosis was noted. Urinalysis is positive for uric acid crystals and granular casts. Mr. Juárez was evaluated by Urology. He elected not to pursue ureteral stent placement. He has been started on Urocit-K to alkalinize the urine. Serum creatinine has risen from 1.0 to 1.6. Patient remains nonoliguric. Mr. Juárez was hoping for improvement in overall health to enable follow up at [facility] for additional recommendations for treatment but this has been unfortunately complicated by progressive overall decline in health and activity tolerance. 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 Colonoscopy with diverticulosis only. Biopsy results from an intestinal ulcer provided evidence of malignancy. Allergies Coded Allergies: Sulfa Antibiotics (Verified Allergy, Intermediate, RASH, 02/01/18) Inpatient Medications Current Inpatient Medications Medications (Trade) Dose Ordered Sig/Suraj Route Start Time Stop Time Status Last Admin Dose Admin Enoxaparin Sodium (Lovenox Inj) 40 mg Q24H SQ 02/01/18 21:00 8/16/18 20:59 02/01/18 22:14 40 MG Zolpidem Tartrate (Ambien Tab) 2.5 mg HSZ PRN PO 02/01/18 18:15 03/03/18 18:14 02/01/18 23:43 2.5 MG Ondansetron HCl (Zofran Inj) 4 mg Q6H PRN IV 02/01/18 18:15 03/03/18 18:14 Potassium Chloride (Klor-Con Tab) 20 meq QAM PO 02/02/18 08:00 03/04/18 08:59 02/02/18 08:09 20 MEQ Atorvastatin Calcium (Lipitor Tab) 10 mg DAILY PO 02/02/18 08:00 03/04/18 08:59 02/02/18 08:09 10 MG Clopidogrel Bisulfate (plAVix TAB) 75 mg DAILY PO 02/02/18 08:00 03/04/18 08:59 Dexamethasone (Decadron Tab) 2 mg BID PO 02/01/18 21:00 03/03/18 20:59 02/02/18 08:09 2 MG Loratadine (Claritin Tab) 10 mg DAILY PO 02/02/18 08:00 03/04/18 08:59 02/02/18 08:09 10 MG Mirtazapine (Remeron Solutab) 15 mg HS PO 02/01/18 21:00 03/03/18 20:59 02/01/18 21:14 15 MG Montelukast Sodium (Singulair Tab) 10 mg HS PO 02/01/18 21:00 03/03/18 20:59 02/01/18 21:14 10 MG Pantoprazole Sodium (Protonix Tab) 40 mg DAILY PO 02/02/18 08:00 03/04/18 08:59 02/02/18 08:10 40 MG Vancomycin HCl (Consult) 1 ea UD PRN N/A 02/01/18 19:30 03/03/18 19:29 Piperacillin Sod/ Tazobactam Sod 3.375 gm/Dextrose 115 ml @ 28.75 mls/ hr Q8H IV 02/01/18 22:00 02/11/18 21:59 02/02/18 05:34 28.75 MLS/HR Miscellaneous Information (Consult) 1 ea UD PRN N/A 02/01/18 19:30 03/03/18 19:29 Vancomycin HCl 1500 mg/Sodium Chloride 530 ml @ 200 mls/hr Q14H IV 02/02/18 10:00 02/12/18 09:59 02/02/18 09:54 200 MLS/HR Family History Stroke Social History Smoking Status: Never Smoker Drug Use: none Marital Status: Housing Status: lives with family Occupation: disabled Review of Systems A complete review of systems was performed. Pertinent positives are noted above. All other systems are negative. Physical Exam Date Time Temp Pulse Resp B/P (MAP) Pulse Ox O2 Delivery O2 Flow Rate FiO2 02/02/18 10:30 Room Air 02/02/18 07:14 37.5 103 16 111/69 (83) 96 Room Air 02/02/18 04:22 37.0 96 18 111/73 (86) 93 Room Air 02/02/18 00:00 Room Air 02/01/18 23:22 36.7 96 18 103/65 (78) 96 Room Air 02/01/18 20:21 37.4 100 16 126/87 97 Room Air 02/01/18 18:45 36.6 61 18 125/74 97 02/01/18 18:28 61 18 125/74 97 Room Air 02/01/18 16:31 59 16 123/76 96 Room Air 02/01/18 14:16 65 18 98/56 96 Room Air 02/01/18 12:13 36.6 109 16 137/82 100 Room Air Laboratory Results Last 24 Hours Test 02/01/18 12:45 02/01/18 13:35 02/02/18 05:55 02/02/18 05:59 Urine Color YELLOW Urine Appearance CLEAR Urine pH 5.0 Urine Specific [place] 1.019 Urine Protein TRACE Urine Glucose (UA) NEG Urine Ketones NEG Urine Occult Blood NEG Urine Nitrite NEG Urine Bilirubin NEG Urine Urobilinogen NEG Urine Leukocyte Esterase NEG Urine WBC (Auto) 5-10 /hpf Urine RBC (Auto) 0-4 /hpf Urine Hyaline Casts (Auto) 0 /lpf Urine Epithelial Cells (Auto) 0-5 /lpf Urine Bacteria (Auto) NEG Urine Crystals URIC ACID Urine Yeast (Auto) White Blood Count 34.15 K/uL 26.26 K/uL Red Blood Count 2.93 M/uL 2.82 M/uL Hemoglobin 8.4 g/dL 8.3 g/dL Hematocrit 25.7 % 25.1 % Mean Corpuscular Volume 87.7 fL 89.0 fL Mean Corpuscular Hemoglobin 28.7 pg 29.4 pg Mean Corpuscular Hemoglobin Concent 32.7 g/dl 33.1 g/dl Platelet Count 258 K/uL 271 K/uL Mean Platelet Volume 9.8 fL 9.7 fL RDW Standard Deviation 45.2 fL 45.9 fL RDW Coefficient of Variation 14.4 % 15.0 % Nucleated RBC Absolute Count (auto) 0.08 K/uL 0.12 K/uL Neutrophils % (Manual) 91.3 % Lymphocytes % (Manual) 0.9 % Monocytes % (Manual) 2.6 % Metamyelocytes % 4.3 % Myelocytes % 0.9 % Nucleated Red Blood Cells % 0.2 % 0.5 % Neutrophils # (Manual) 31.18 K/uL Total Absolute Neutrophils 31.18 K/uL Lymphocytes # (Manual) 0.31 K/uL Total Absolute Lymphocytes 0.31 K/uL Monocytes # (Manual) 0.89 K/uL Metamyelocytes # 1.47 K/uL Myelocytes # 0.31 K/uL Toxic Granulation 1+ 1+ Dohle Bodies 1+ Polychromasia 1+ Anisocytosis PRESENT Sodium Level 135 mmol/L 135 mmol/L Potassium Level 3.1 mmol/L 3.3 mmol/L Chloride Level 103 mmol/L 102 mmol/L Carbon Dioxide Level 23 mmol/L 24 mmol/L Anion Gap 9.0 mmol/L 9.0 mmol/L Blood Urea Nitrogen 23 mg/dl 18 mg/dl Creatinine 2.04 mg/dl 1.96 mg/dl Estimated GFR () 44.0 46.2 Estimated GFR (Non- 38.0 39.8 BUN/Creatinine Ratio 11.4 9.1 Random Glucose 117 mg/dl 102 mg/dl Lactic Acid Level 2.6 mmol/L Calcium Level 5.7 mg/dl 6.0 mg/dl Magnesium Level 1.5 mg/dl 1.8 mg/dl Total Bilirubin 0.2 mg/dl 0.3 mg/dl Aspartate Amino Transf (AST/SGOT) 24 U/L 21 U/L Alanine Aminotransferase (ALT/SGPT) 23 U/L 22 U/L Alkaline Phosphatase 741 U/L 724 U/L Total Protein 5.1 gm/dl 4.8 gm/dl Albumin 1.9 gm/dl 1.8 gm/dl Globulin 3.2 gm/dl 3.0 gm/dl Albumin/Globulin Ratio 0.6 0.6 Prostate Specific Antigen 0.256 ng/ml Est Creatinine Clear Calc Drug Dose 63.6 ml/min Phosphorus Level 3.4 mg/dl Neutrophils (%) (Auto) 81.4 % Lymphocytes (%) (Auto) 1.8 % Monocytes (%) (Auto) 8.1 % Eosinophils (%) (Auto) 0.0 % Basophils (%) (Auto) 0.3 % Neutrophils # (Auto) 21.40 K/uL Lymphocytes # (Auto) 0.46 K/uL Monocytes # (Auto) 2.13 K/uL Eosinophils # (Auto) 0.00 K/uL Basophils # (Auto) 0.07 K/uL Immature Granulocyte % (Auto) 8.4 % Immature Granulocyte # (Auto) 2.20 K/uL Impression (1) Hypokalemia (2) Hypocalcemia (3) Acute kidney injury (4) Hypomagnesemia Mr. Juárez is a 47-year-old male with CKD in the setting of advanced metastatic adenocarcinoma. The patient has CKD and multiple episodes of BRYNN. Creatinine now 2.0 mg/dL. BP and volume status are reasonable. Nutrition is poor. The patient has chronic recurrent diarrhea. He has multiple electrolyte abnormalities requiring cautious replacement in setting of renal dysfunction. Nutrition consultation would also be advised. Recommendations -- Monitor metabolic profile with magnesium and phosphorus daily -- Check 25OH D level -- Continue KCl 20 mEq BID -- Additional 1 gram calcium gluconate provided this morning -- Document I/O's -- Encourage nutrition
--- NOTE | 2018-02-02 11:00 | Medical Student: [facility] ---
Consultation Date of Consultation: Feb 02, 2018. History of Present Illness IDENTIFYING DATA: 47yo male with recent dx of metastatic cancer of unknown origin. Expressed thoughts that "this is no way to live." Lives in [facility] with . 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 Expressed thoughts that "this is no way to live." Pt experienced CVA in October 2017 and cancer dx followed. He expresses a gradual decline in mental health as "time progresses and I am not getting better;" states "I am depressed." Pt reports that he feels "like a burden to my family;" his states that his has to help him shower, care for him, help with simple tasks. "I am not able to do what I did before." These factors as well as the pt's physical state of weakness, he feels are contributing to his "depression." On 02/01 he expressed to his that "this is no way to live." At some point prior to that, the pt had the guns removed from his home as a preventative measure. "I did not have thoughts that I wanted to shoot myself, it was just to eliminate a threat." He currently denies SI. Denies AH/VH. Pt reports poor sleep; "I did not sleep at all last night." He has trouble falling asleep and staying asleep. Appetite is "OK." Pt has been on mirtazapine 15MG HS for 2weeks (which can help with sleep, appetite, and mood), but is not sure if it has been beneficial. But, it is difficult to determine its effectiveness as the past 2 weeks have been the most difficult for him physically; in and out of the hospital and first chemotherapy treatment about 2- 3 weeks ago. Pt has also been on decadron for 2 weeks, which can have a depressive effect on mood. PAST PSYCHIATRIC HISTORY: Current outpatient mental health treatment: none. 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; saw psychiatrist as part of screening for Prior psychiatric hospitalizations: none Prior medication trials: none Prior suicide attempts: none PAST MEDICAL HISTORY: Current primary care practitioner: medical history: metastatic cancer, HTN, BRYNN surgical history: none history of iv drug use: none ALLERGIES: sulfa abx FAMILY HISTORY: Mental Health: Grandmother- "nervous breakdown?" Substance Abuse: none Suicide: none SUBSTANCE USE HISTORY: Tobacco use hx: none EtOH: none Illicit: none Rx: none PERSONAL HISTORY: Lives with in [facility] Education: graduated high school 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 Sitting up on the edge of the bed. Appropriately groomed Eye contact is good Motor behavior- slight UE tremor Speech: normal volume, rate, and tone Affect: slightly depressed; normal range of affect. Mood: "optimistic; pretty good ". Thought process: logical, linear Thought content: reality based w/o delusions Perception:denies AH/VH denies SI/HI Cognition: language and memory intact Insight is estimated to be good. Judgment is estimated to be good. Social History Smoking Status: Never Smoker History of Alcohol Use: No Drug Use: none Marital Status: Housing Status: lives with family Occupation Status: disabled Allergies Coded Allergies: Sulfa Antibiotics (Verified Allergy, Intermediate, RASH, 02/01/18) Medications Current Inpatient Medications Medications (Trade) Dose Ordered Sig/Suraj Route Start Time Stop Time Status Last Admin Dose Admin Enoxaparin Sodium (Lovenox Inj) 40 mg Q24H SQ 02/01/18 21:00 03/03/18 20:59 02/01/18 22:14 40 MG Zolpidem Tartrate (Ambien Tab) 2.5 mg HSZ PRN PO 02/01/18 18:15 03/03/18 18:14 02/01/18 23:43 2.5 MG Ondansetron HCl (Zofran Inj) 4 mg Q6H PRN IV 02/01/18 18:15 03/03/18 18:14 Potassium Chloride (Klor-Con Tab) 20 meq QAM PO 02/02/18 08:00 03/04/18 08:59 02/02/18 08:09 20 MEQ Atorvastatin Calcium (Lipitor Tab) 10 mg DAILY PO 02/02/18 08:00 03/04/18 08:59 02/02/18 08:09 10 MG Clopidogrel Bisulfate (plAVix TAB) 75 mg DAILY PO 02/02/18 08:00 03/04/18 08:59 Dexamethasone (Decadron Tab) 2 mg BID PO 02/01/18 21:00 03/03/18 20:59 02/02/18 08:09 2 MG Loratadine (Claritin Tab) 10 mg DAILY PO 02/02/18 08:00 03/04/18 08:59 02/02/18 08:09 10 MG Mirtazapine (Remeron Solutab) 15 mg HS PO 02/01/18 21:00 03/03/18 20:59 02/01/18 21:14 15 MG Montelukast Sodium (Singulair Tab) 10 mg HS PO 02/01/18 21:00 03/03/18 20:59 02/01/18 21:14 10 MG Pantoprazole Sodium (Protonix Tab) 40 mg DAILY PO 02/02/18 08:00 03/04/18 08:59 02/02/18 08:10 40 MG Vancomycin HCl (Consult) 1 [facility] PRN N/A 02/01/18 19:30 03/03/18 19:29 Piperacillin Sod/ Tazobactam Sod 3.375 gm/Dextrose 115 ml @ 28.75 mls/ hr Q8H IV 02/01/18 22:00 02/11/18 21:59 02/02/18 05:34 28.75 MLS/HR Miscellaneous Information (Consult) 1 Banner PRN N/A 02/01/18 19:30 03/03/18 19:29 Vancomycin HCl 1500 mg/Sodium Chloride 530 ml @ 200 mls/hr Q14H IV 02/02/18 10:00 02/12/18 09:59 02/02/18 09:54 200 MLS/HR Physical Exam Date Time Temp Pulse Resp B/P (MAP) Pulse Ox O2 Delivery O2 Flow Rate FiO2 02/02/18 07:14 37.5 103 16 111/69 (83) 96 Room Air 02/02/18 04:22 37.0 96 18 111/73 (86) 93 Room Air 02/02/18 00:00 Room Air 02/01/18 23:22 36.7 96 18 103/65 (78) 96 Room Air 02/01/18 20:21 37.4 100 16 126/87 97 Room Air 7/17/18 18:45 36.6 61 18 125/74 97 02/01/18 18:28 61 18 125/74 97 Room Air 02/01/18 16:31 59 16 123/76 96 Room Air 02/01/18 14:16 65 18 98/56 96 Room Air 02/01/18 12:13 36.6 109 16 137/82 100 Room Air Laboratory Results Last 24 Hours Test 02/01/18 12:45 02/01/18 13:35 02/02/18 05:55 02/02/18 05:59 Urine Color YELLOW Urine Appearance CLEAR Urine pH 5.0 Urine Specific [place] 1.019 Urine Protein TRACE Urine Glucose (UA) NEG Urine Ketones NEG Urine Occult Blood NEG Urine Nitrite NEG Urine Bilirubin NEG Urine Urobilinogen NEG Urine Leukocyte Esterase NEG Urine WBC (Auto) 5-10 /hpf Urine RBC (Auto) 0-4 /hpf Urine Hyaline Casts (Auto) 0 /lpf Urine Epithelial Cells (Auto) 0-5 /lpf Urine Bacteria (Auto) NEG Urine Crystals URIC ACID Urine Yeast (Auto) White Blood Count 34.15 K/uL 26.26 K/uL Red Blood Count 2.93 M/uL 2.82 M/uL Hemoglobin 8.4 g/dL 8.3 g/dL Hematocrit 25.7 % 25.1 % Mean Corpuscular Volume 87.7 fL 89.0 fL Mean Corpuscular Hemoglobin 28.7 pg 29.4 pg Mean Corpuscular Hemoglobin Concent 32.7 g/dl 33.1 g/dl Platelet Count 258 K/uL 271 K/uL Mean Platelet Volume 9.8 fL 9.7 fL RDW Standard Deviation 45.2 fL 45.9 fL RDW Coefficient of Variation 14.4 % 15.0 % Nucleated RBC Absolute Count (auto) 0.08 K/uL 0.12 K/uL Neutrophils % (Manual) 91.3 % Lymphocytes % (Manual) 0.9 % Monocytes % (Manual) 2.6 % Metamyelocytes % 4.3 % Myelocytes % 0.9 % Nucleated Red Blood Cells % 0.2 % 0.5 % Neutrophils # (Manual) 31.18 K/uL Total Absolute Neutrophils 31.18 K/uL Lymphocytes # (Manual) 0.31 K/uL Total Absolute Lymphocytes 0.31 K/uL Monocytes # (Manual) 0.89 K/uL Metamyelocytes # 1.47 K/uL Myelocytes # 0.31 K/uL Toxic Granulation 1+ 1+ Dohle Bodies 1+ Polychromasia 1+ Anisocytosis PRESENT Sodium Level 135 mmol/L 135 mmol/L Potassium Level 3.1 mmol/L 3.3 mmol/L Chloride Level 103 mmol/L 102 mmol/L Carbon Dioxide Level 23 mmol/L 24 mmol/L Anion Gap 9.0 mmol/L 9.0 mmol/L Blood Urea Nitrogen 23 mg/dl 18 mg/dl Creatinine 2.04 mg/dl 1.96 mg/dl Estimated GFR () 44.0 46.2 Estimated GFR (Non- 38.0 39.8 BUN/Creatinine Ratio 11.4 9.1 Random Glucose 117 mg/dl 102 mg/dl Lactic Acid Level 2.6 mmol/L Calcium Level 5.7 mg/dl 6.0 mg/dl Magnesium Level 1.5 mg/dl 1.8 mg/dl Total Bilirubin 0.2 mg/dl 0.3 mg/dl Aspartate Amino Transf (AST/SGOT) 24 U/L 21 U/L Alanine Aminotransferase (ALT/SGPT) 23 U/L 22 U/L Alkaline Phosphatase 741 U/L 724 U/L Total Protein 5.1 gm/dl 4.8 gm/dl Albumin 1.9 gm/dl 1.8 gm/dl Globulin 3.2 gm/dl 3.0 gm/dl Albumin/Globulin Ratio 0.6 0.6 Prostate Specific Antigen 0.256 ng/ml Est Creatinine Clear Calc Drug Dose 63.6 ml/min Phosphorus Level 3.4 mg/dl Neutrophils (%) (Auto) 81.4 % Lymphocytes (%) (Auto) 1.8 % Monocytes (%) (Auto) 8.1 % Eosinophils (%) (Auto) 0.0 % Basophils (%) (Auto) 0.3 % Neutrophils # (Auto) 21.40 K/uL Lymphocytes # (Auto) 0.46 K/uL Monocytes # (Auto) 2.13 K/uL Eosinophils # (Auto) 0.00 K/uL Basophils # (Auto) 0.07 K/uL Immature Granulocyte % (Auto) 8.4 % Immature Granulocyte # (Auto) 2.20 K/uL Assessment & Plan IMPRESSION: 47yo male with several months of depressive symptoms and a few days of passive SI. Pt endorses poor sleep and feelings of hopelessness at times. Suicide risk assessment is low at the current time. 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 RECOMMENDATIONS 1.) Mood disorder related to medical condition a. recommend increasing mirtazapine to 30MG PO HS to help with sleep and mood b. outpatient therapy and f/u with psychiatrist
--- NOTE | 2018-02-02 12:24 | Psychiatric Consultation ---
Consultation Date of Consultation Feb 02, 2018. Identifying Data 47-year-old male with metastatic cancer, primary unknown, admitted with weakness and tremor. We are consulted to evaluate anxiety and depression. Information is gathered from the patient and considered to be reliable. Chief Complaint "I feel pretty good today.". History of Present Illness The patient is a 47-year-old male who was diagnosed with metastatic cancer with a primary site unknown, in October of this year. His initial symptom was that of a stroke in October and since then has been in and out of the hospital. He began chemotherapy about 3 weeks ago and during the process of this treatment his mood has become more depressed. He has been following at the [facility] and someone there put him on Remeron 15 mg at bedtime about 2 weeks ago, which she says has been helpful to his appetite but not sure if it has helped his mood. This sicker he becomes, the more he feels like a burden to his , who has to help him do his activities of daily living and drive him to all of his appointments. He apparently made a statement to his yesterday that "this is no way to live" but denies that that meant he was suicidal. 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 He admits that he feels safer when he is in the hospital because there are people designated to care from him rather than having to rely on his for his care. He reports that his sleep has been difficult despite the Remeron, saying that there are times he has difficulty falling asleep as well as staying asleep, and says last night he got no sleep at all. His appetite is improved with the Remeron. He reports low energy. He denies any auditory or visual hallucinations although did say that when he was at [facility], he had some times when he woke up feeling disoriented. He denies any ups and downs to his mood that might be congruent with a bipolar disorder. Past Psychiatric History Current OP Treatment: no current treatment Prior OP Treatment: no prior treatment Prior Psych Hospitalizations: none Access to a Gun: Yes (but have been removed from the home) Past Medication Trials None Past Medical/Surgical History History of Concussion/Seizure: No (1) Cerebrovascular accident (2) Hydronephrosis (3) Disseminated malignancy of unknown primary Allergies Allergies: Coded Allergies: Sulfa Antibiotics (Verified Allergy, Intermediate, RASH, 02/01/18) Home Medications Scheduled Atorvastatin (Lipitor), 10 MG PO DAILY Ciprofloxacin Hcl (Cipro), 500 MG PO BID Clopidogrel (Plavix), 75 MG PO DAILY Dexamethasone (Decadron), 2 MG PO BID Loperamide Hcl (Imodium), 2 MG PO QID Loratadine (Claritin), 10 MG PO DAILY Metoclopramide (Reglan), 10 MG PO ACHS Mirtazapine (Mirtazapine), 15 MG PO HS Montelukast Sodium (Singulair), 10 MG PO DAILY Pantoprazole (Protonix), 40 MG PO DAILY Family History Stroke History of Suicide: No History of Substance Abuse: No Psychiatric History: Yes (Grandfather had a "nervous breakdown") Alcohol Use Alcohol Use In Past 12 Months: Yes Prior to dx of cancer, would have a beer occasionally Smoking Use Smoking Status: Never Smoker Substance History Denies Personal History Lives in: [place] with his Education: graduated from high school 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, 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, 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 Relationship History: Children: 2 step children Spiritual Affiliation: Presbyterian Legal History: none Psychological Trauma History: Denies Hx Traumatic Event Review of Systems Constitutional: weakness Eyes: denies: no symptoms, as stated in HPI, eye pain, tearing, itching, redness, discharge, double vision, visual changes, blurred vision, photophobia, other ENT: denies: no symptoms reported, see HPI, ear pain, ear discharge, loss of hearing, tinnitus, nasal pain, nasal congestion, rhinorrhea, epistaxis, sore throat, stidor, throat swelling, mouth pain, mouth swelling, dental pain, gum swelling, other Cardiovascular: denies: no symptoms reported, see HPI, chest pain, chest tightness, chest pressure, diaphoresis, palpitations, syncope, other Respiratory: denies: no symptoms reported, see HPI, cough, orthopnea, short of breath, stridor, wheezing, sputum production, cyanosis, PELLETIER, PND, other Gastrointestinal: denies no symptoms reported, denies see HPI, denies abdominal pain, denies constipation, denies diarrhea, denies nausea, denies vomiting, denies other Genitourinary - Male: denies: no symptoms, see HPI, rash, amenorrhea, penile itching, penile discharge, testicular pain, testicular swelling, impotence, other Musculoskeletal: denies no symptoms reported, denies see HPI, denies back pain , denies gout, denies joint pain, denies joint swelling, denies muscle pain, denies muscle stiffness, denies neck pain, denies other Integumentary: denies no symptoms reported, denies see HPI, denies change in color, denies change in hair/nails, denies dryness, denies lesions, denies lumps , denies rash, denies other Neurologic: denies: no symptoms, see HPI, headache, numbness, paresthesias, pre -existing deficit, seizure, tingling, tremors, general weakness, tics, focal weakness, vertigo, lethargy, memory loss, dizziness, other Endocrine: denies: no symptoms, as stated in HPI, cold intolerance, heat intolerance, hair changes, goiter, polydipsia, polyuria, skin changes, other Hematologic / Lymphatic: denies: no symptoms, as stated in HPI, abnormal clotting, adenopathy, anemia, easy bleeding, easy bruising, gums bleeding, petechiae, other Examination Vital Signs Vital Signs Past 12 Hours Date Time Temp Pulse Resp B/P (MAP) Pulse Ox O2 Delivery O2 Flow Rate FiO2 02/02/18 11:26 36.5 99 16 119/79 (92) 99 Room Air 02/02/18 10:30 Room Air 02/02/18 07:14 37.5 103 16 111/69 (83) 96 Room Air 02/02/18 04:22 37.0 96 18 111/73 (86) 93 Room Air Laboratory Results Last 24 Hours Test 02/01/18 12:45 02/01/18 13:35 02/02/18 05:55 02/02/18 05:59 Urine Color YELLOW Urine Appearance CLEAR Urine pH 5.0 Urine Specific [place] 1.019 Urine Protein TRACE Urine Glucose (UA) NEG Urine Ketones NEG Urine Occult Blood NEG Urine Nitrite NEG Urine Bilirubin NEG Urine Urobilinogen NEG Urine Leukocyte Esterase NEG Urine WBC (Auto) 5-10 /hpf Urine RBC (Auto) 0-4 /hpf Urine Hyaline Casts (Auto) 0 /lpf Urine Epithelial Cells (Auto) 0-5 /lpf Urine Bacteria (Auto) NEG Urine Crystals URIC ACID Urine Yeast (Auto) White Blood Count 34.15 K/uL 26.26 K/uL Red Blood Count 2.93 M/uL 2.82 M/uL Hemoglobin 8.4 g/dL 8.3 g/dL Hematocrit 25.7 % 25.1 % Mean Corpuscular Volume 87.7 fL 89.0 fL Mean Corpuscular Hemoglobin 28.7 pg 29.4 pg Mean Corpuscular Hemoglobin Concent 32.7 g/dl 33.1 g/dl Platelet Count 258 K/uL 271 K/uL Mean Platelet Volume 9.8 fL 9.7 fL RDW Standard Deviation 45.2 fL 45.9 fL RDW Coefficient of Variation 14.4 % 15.0 % Nucleated RBC Absolute Count (auto) 0.08 K/uL 0.12 K/uL Neutrophils % (Manual) 91.3 % Lymphocytes % (Manual) 0.9 % Monocytes % (Manual) 2.6 % Metamyelocytes % 4.3 % Myelocytes % 0.9 % Nucleated Red Blood Cells % 0.2 % 0.5 % Neutrophils # (Manual) 31.18 K/uL Total Absolute Neutrophils 31.18 K/uL Lymphocytes # (Manual) 0.31 K/uL Total Absolute Lymphocytes 0.31 K/uL Monocytes # (Manual) 0.89 K/uL Metamyelocytes # 1.47 K/uL Myelocytes # 0.31 K/uL Toxic Granulation 1+ 1+ Dohle Bodies 1+ Polychromasia 1+ Anisocytosis PRESENT Sodium Level 135 mmol/L 135 mmol/L Potassium Level 3.1 mmol/L 3.3 mmol/L Chloride Level 103 mmol/L 102 mmol/L Carbon Dioxide Level 23 mmol/L 24 mmol/L Anion Gap 9.0 mmol/L 9.0 mmol/L Blood Urea Nitrogen 23 mg/dl 18 mg/dl Creatinine 2.04 mg/dl 1.96 mg/dl Estimated GFR () 44.0 46.2 Estimated GFR (Non- 38.0 39.8 BUN/Creatinine Ratio 11.4 9.1 Random Glucose 117 mg/dl 102 mg/dl Lactic Acid Level 2.6 mmol/L Calcium Level 5.7 mg/dl 6.0 mg/dl Magnesium Level 1.5 mg/dl 1.8 mg/dl Total Bilirubin 0.2 mg/dl 0.3 mg/dl Aspartate Amino Transf (AST/SGOT) 24 U/L 21 U/L Alanine Aminotransferase (ALT/SGPT) 23 U/L 22 U/L Alkaline Phosphatase 741 U/L 724 U/L Total Protein 5.1 gm/dl 4.8 gm/dl Albumin 1.9 gm/dl 1.8 gm/dl Globulin 3.2 gm/dl 3.0 gm/dl Albumin/Globulin Ratio 0.6 0.6 Prostate Specific Antigen 0.256 ng/ml Est Creatinine Clear Calc Drug Dose 63.6 ml/min Phosphorus Level 3.4 mg/dl Neutrophils (%) (Auto) 81.4 % Lymphocytes (%) (Auto) 1.8 % Monocytes (%) (Auto) 8.1 % Eosinophils (%) (Auto) 0.0 % Basophils (%) (Auto) 0.3 % Neutrophils # (Auto) 21.40 K/uL Lymphocytes # (Auto) 0.46 K/uL Monocytes # (Auto) 2.13 K/uL Eosinophils # (Auto) 0.00 K/uL Basophils # (Auto) 0.07 K/uL Immature Granulocyte % (Auto) 8.4 % Immature Granulocyte # (Auto) 2.20 K/uL Mental Examination During interview pt is: alert and oriented Appearance: appropriately dressed, appropriately groomed Eye contact is: good Motor behavior is: no abnormal motor movements Speech: normal in rate, rhythm & volume Affect: blunted Mood is: other ("I feel pretty good today.") Thought process: goal directed Thought content: reality based without delusions Suicidal thought are: denied Homicidal thoughts are: denied Hallucinations: denies auditory, denies visual Cognition: memory grossly intact, attention grossly intact, language grossly intact Intelligence estimated to be: average Insight: fair Judgement: fair Impression / Recommendations Impression 47-year-old man with metastatic cancer, admitted with weakness and tremor. We are consulted to evaluate mood and anxiety. The patient readily admits to a depressed mood and that he feels more secure when he is in the hospital where people are designated care for him. Sleep is his biggest complaint at this point and since he is already on Remeron, we will increase that to 30 mg at bedtime. If over time this is insufficient or if his mood deteriorates, we could consider layering on an SSRI. We have offered to set him up for outpatient counseling but he is worried about yet 1 more appointment to burden his . He plans to talk with her about it when she visits later today. He meets no criteria for inpatient mental health treatment at this time. Inventory Assets Strengths: Supportive and family Risk Factors Assessment Male: Yes : No /single/: No Access to guns: Yes Health problems: Yes Mental Health Diagnoses: No Substance use disorders: No Previous attempt: No Previous psychiatric stay: No Hopelessness: No Smoker: No Protective Factors Assessment [employer] beliefs: Yes : Yes Responsible for young children: No Employed: Yes Stable relationships: Yes Supportive family: Yes Recommendations (1) mood disorder related to medical condition 02/02 - Increase Remeron to 30 mg. HS - No criteria for inpatient care Dr. Ennis has personally been involved in the review of this case and development of these recommendations.
[2018-02-02] MEDS: CEFTRIAXONE SOD INJ 2000 MG in DEXTROSE 5% 50ML IV SCH (13:59)
[2018-02-02] MEDS ORDERED: LORAZEPAM 2 MG/ML 1 ML VIAL IV STA (19:59)
[2018-02-02] MEDS ORDERED: LORAZEPAM INJ 0.5 MG in SYRINGE 0.75 ML IV ONE (20:30)
--- NOTE | 2018-02-02 20:44 | Family Medicine Progress Note ---
Progress Note Date of Service Feb 02, 2018. Subjective Pt evaluation today including: conversation w/ patient, conversation w/ family , physical exam, chart review, lab review Pain: 0/10 PO Intake: Tolerating Diet Pt was sitting up in bed with his family in good spirits this morning. Reported not sleeping well last night despite ambien. Patiet is voiding on his own and tolerating PO diet. Patient reports having loose stool x4 with gravely consistency. He is optimistic about his diagnosis and excited to begin treatment. Constitutional: + chills, + sweats, + weakness (in the evening), No fever Eyes: No eye pain ENT: No hearing loss, No nasal symptoms, No sore throat Respiratory: No cough, No sputum, No wheezing, No shortness of breath Cardiovascular: No chest pain, No PND, No edema Abdomen: + diarrhea (Gravel consistency ), No pain, No nausea, No vomiting, No constipation Musculoskeletal: No joint pain Psychiatric: + depression symptoms, + anxiety (regarding ) Endo: + fatigue Skin: No rash, No itch, No new/changing skin lesions All Other Systems: Reviewed and Negative Medications Current Inpatient Medications Medications (Trade) Dose Ordered Sig/Suraj Route Start Time Stop Time Status Last Admin Dose Admin Enoxaparin Sodium (Lovenox Inj) 40 mg Q24H SQ 02/01/18 21:00 03/03/18 20:59 02/01/18 22:14 40 MG Ondansetron HCl (Zofran Inj) 4 mg Q6H PRN IV 02/01/18 18:15 03/03/18 18:14 Potassium Chloride (Klor-Con Tab) 20 meq QAM PO 02/02/18 08:00 03/04/18 08:59 02/02/18 08:09 20 MEQ Atorvastatin Calcium (Lipitor Tab) 10 mg DAILY PO 02/02/18 08:00 03/04/18 08:59 02/02/18 08:09 10 MG Dexamethasone (Decadron Tab) 2 mg BID PO 02/01/18 21:00 03/03/18 20:59 02/02/18 08:09 2 MG Loratadine (Claritin Tab) 10 mg DAILY PO 02/02/18 08:00 03/04/18 08:59 02/02/18 08:09 10 MG Montelukast Sodium (Singulair Tab) 10 mg HS PO 02/01/18 21:00 03/03/18 20:59 02/01/18 21:14 10 MG Pantoprazole Sodium (Protonix Tab) 40 mg DAILY PO 02/02/18 08:00 03/04/18 08:59 02/02/18 08:10 40 MG Mirtazapine (Remeron Tab) 30 mg HS PO 02/02/18 21:00 03/04/18 20:59 Ceftriaxone Sodium 2 gm/ Dextrose 50 ml @ 100 mls/hr DAILY@1400 IV 02/02/18 14:00 02/12/18 13:59 02/02/18 13:59 100 MLS/HR Lorazepam (Ativan Tab) 0.5 mg Q6 PRN PO 02/02/18 20:00 03/04/18 19:59 Objective Vital Signs Date Time Temp Pulse Resp B/P (MAP) Pulse Ox O2 Delivery O2 Flow Rate FiO2 02/02/18 20:03 36.5 96 20 122/73 (89) 95 Room Air 02/02/18 18:57 114 24 124/86 (99) 99 Room Air 02/02/18 16:00 Room Air 02/02/18 15:27 36.5 96 16 105/72 (83) 94 Room Air 02/02/18 11:26 36.5 99 16 119/79 (92) 99 Room Air 02/02/18 10:30 Room Air 02/02/18 07:14 37.5 103 16 111/69 (83) 96 Room Air 02/02/18 04:22 37.0 96 18 111/73 (86) 93 Room Air 02/02/18 00:00 Room Air 02/01/18 23:22 36.7 96 18 103/65 (78) 96 Room Air Physical Exam General Appearance: WD/WN, no apparent distress Eyes: normal inspection, EOMI, sclerae normal ENT: hearing grossly normal Neck: supple, no adenopathy, thyroid normal, trachea midline Respiratory/Chest: chest non-tender, lungs clear, normal breath sounds, no respiratory distress, no accessory muscle use Cardiovascular: regular rate, rhythm, no edema, no gallop, no murmur Abdomen: normal bowel sounds, no organomegaly, no pulsatile mass, + distended Extremities: normal inspection, no calf tenderness, normal capillary refill Neurologic/Psychiatric: alert, normal mood/affect, oriented x 3 Skin: normal color, warm/dry, no rash Lymphatic: no adenopathy Laboratory Results Last Resulted 02/02/18 05:59 Red Blood Count 2.82, Mean Corpuscular Volume 89.0, Mean Corpuscular Hemoglobin 29.4, Mean Corpuscular Hemoglobin Concent 33.1, Mean Platelet Volume 9.7, Neutrophils (%) (Auto) 81.4, Lymphocytes (%) (Auto) 1.8, Monocytes (%) (Auto) 8.1, Eosinophils (%) (Auto) 0.0, Basophils (%) (Auto) 0.3, Neutrophils # (Auto) 21.40, Lymphocytes # (Auto) 0.46, Monocytes # (Auto) 2.13, Eosinophils # (Auto) 0.00, Basophils # (Auto) 0.07 Last Resulted 02/02/18 05:55 Assessment and Plan 47-year-old man with PMhx of tia, Barretts esophagus, ckd, HTN, HLD, recently dx 'd [facility] Adenocarcinoma of unknown primary source, admitted for evaluation of weakness and tremor. IV ABX to PPX against SBP - Recent hx of paracentesis given Ca DX, ppx against sbp - DC'd vancomycin 2g q12 - DC'd zosyn 3.375 g q12 -Started Ceftriaxone 2g qday -F/U Cx - Pending Hypokalemia -20 meq by mouth now, 20 meq BID -trend K+ levels daily -Management per Nephro Hypomagnesemia -Trend Mg levels daily -Management per Nephro Hypocalcemia -Trend Ca levels daily -Management per Nephro Metastatic AdenoCarcinoma of unknown orgin -PSA negative -medical records from [facility] Obtained -Consulted Heme/Onc -Consulted Psych "- Increase Remeron to 30 mg. HS - No criteria for inpatient care" -Consulted Nephro --"The patient has chronic recurrent diarrhea. He has multiple electrolyte abnormalities requiring cautious replacement in setting of renal dysfunction. Nutrition consultation would also be advised. -- Monitor metabolic profile with magnesium and phosphorus daily -- Check 25OH D level -- Continue KCl 20 mEq BID -- Additional 1 gram calcium gluconate provided this morning -- Document I/O's -- Encourage nutrition" -Consulted nutrition -Hypoalbuminemia 2/2 AdenoCa trend CMP Acute on chronic BRYNN in the setting of ATN and tumor lysis syndrome -Nephro Consulted see above -Trending BMP -Trending PO4 -Avoid Nephrotoxic Medications Hyperlipidemia -resumed home statin FULL CODE DVT: Lovenox Diet: Regular Continued [facility] stay due to: multiple IV medications needed Discharge planning: home Resident Tracking Resident Involvement: Resident Care Provided Care Provided: [facility] Medicine Assessment/Plan Resident Physician Supervision Note: I was present with Dr. Leon during the history and exam. I discussed the case with the resident and agree with the findings and plan as documented in the note. Any exceptions or clarifications are listed here: Pt seen and examined at bedside. No acute events overnight. Still feelings somewhat tremulous and concerned about activity at home based on fatigue but wiling to try up and around while in hospital setting today. On examination, S1/S2 nl RRR no MCG. CTAB. Abd is minimally TTP inferiorly and minimally distended Metastatic adenocarcinoma - oncology consultation appreciated - d/w CC for guidance on chemotherapy and management through Dr. Carson Electrolyte disturbances - nephrology consultation appreciated - repletion and fluid management h/o TIA - had restarted plavix 2/2 h/o TIA, but concern for needing to stop well preceeding next paracetntesis, so d/w patinet re: stop AP therapy Adjustment disorder w/ insomnia - psychiatric consultation appreciated - denies SI/HI. IV ativan. Continue mirtazapine. D/C kurtisien HLD - continue statin therapy
[2018-02-02] MEDS: MONTELUKAST SOD 10 MG TAB PO SCH (21:16)
[2018-02-02] MEDS: MIRTAZAPINE TAB 15 MG TAB PO SCH (21:16)
[2018-02-02] MEDS: ENOXAPARIN 40 MG/0.4 ML SYR SQ SCH (21:17)
[2018-02-03] VITALS (11 sets, daily range): BP systolic 106–161; BP diastolic 63–99; PULSE 89–113; TEMP 36.4–37.3; O2SAT 92–98
[2018-02-03] MEDS: LORAZEPAM 0.5 MG TAB PO PRN ×2 (01:20→10:11)
[2018-02-03 06:57] LABS: ALBUMIN 1.7 gm/dl (3.4-5.0); CREATININE 1.97 mg/dl (0.60-1.40); PHOSPHORUS 3.6 mg/dl (2.5-4.9); POTASSIUM 3.4 mmol/L (3.5-5.1); TOTAL PROTEIN 4.6 gm/dl (6.4-8.2)
--- NOTE | 2018-02-03 07:05 | Family Medicine Progress Note ---
Progress Note Date of Service Feb 03, 2018. Subjective Pt evaluation today including: conversation w/ patient, conversation w/ family , physical exam, chart review, lab review Pain: 0/10 PO Intake: Tolerating diet Voiding: no voiding problems Today is the Patients Birthday. He was sitting up in bed this morning with his family around him. Pt reported sleeping well last night, stated he preferred the IV Ativan. Has been toileting appropriately. No other Complaints. Additional Comments: Constitutional: + chills, + sweats, + weakness (in the evening), No fever Eyes: No eye pain ENT: No hearing loss, No nasal symptoms, No sore throat Respiratory: No cough, No sputum, No wheezing, No shortness of breath Cardiovascular: No chest pain, No PND, No edema Abdomen: + diarrhea (Gravel consistency ), No pain, No nausea, No vomiting, No constipation Musculoskeletal: No joint pain Psychiatric: + depression symptoms, + anxiety (regarding ) Endo: + fatigue Skin: No rash, No itch, No new/changing skin lesions All Other Systems: Reviewed and Negative All Other Systems: Reviewed and Negative Medications Current Inpatient Medications Medications (Trade) Dose Ordered Sig/Suraj Route Start Time Stop Time Status Last Admin Dose Admin Enoxaparin Sodium (Lovenox Inj) 40 mg Q24H SQ 02/01/18 21:00 03/03/18 20:59 02/02/18 21:17 40 MG Ondansetron HCl (Zofran Inj) 4 mg Q6H PRN IV 02/01/18 18:15 03/03/18 18:14 Atorvastatin Calcium (Lipitor Tab) 10 mg DAILY PO 02/02/18 08:00 03/04/18 08:59 02/03/18 08:03 10 MG Dexamethasone (Decadron Tab) 2 mg BID PO 02/01/18 21:00 03/03/18 20:59 02/03/18 08:04 2 MG Loratadine (Claritin Tab) 10 mg DAILY PO 02/02/18 08:00 03/04/18 08:59 02/03/18 08:04 10 MG Montelukast Sodium (Singulair Tab) 10 mg HS PO 02/01/18 21:00 03/03/18 20:59 02/02/18 21:16 10 MG Pantoprazole Sodium (Protonix Tab) 40 mg DAILY PO 02/02/18 08:00 03/04/18 08:59 02/03/18 08:05 40 MG Mirtazapine (Remeron Tab) 30 mg HS PO 02/02/18 21:00 03/04/18 20:59 02/02/18 21:16 30 MG Ceftriaxone Sodium 2 gm/ Dextrose 50 ml @ 100 mls/hr DAILY@1400 IV 02/02/18 14:00 02/12/18 13:59 02/03/18 12:34 100 MLS/HR Lorazepam (Ativan Tab) 0.5 mg Q6 PRN PO 02/02/18 20:00 03/04/18 19:59 02/03/18 10:11 0.5 MG Potassium Chloride (Klor-Con Tab) 40 meq QAM PO 02/04/18 08:00 03/04/18 08:59 Ergocalciferol (Vitamin D Cap) 50,000 interunit Th@0900 PO 02/03/18 12:00 03/05/18 11:59 02/03/18 11:23 50,000 INTERUNIT Calcium Carbonate (oS-Oli 500 TAB) 1,250 mg BID PO 02/03/18 20:00 03/05/18 19:59 Loperamide HCl (Imodium Cap) 2 mg Q4H PRN PO 02/03/18 08:45 03/05/18 08:44 Enteral Nutritional Formula (Boost Breeze Nutritional Drink) 1 box BID PO 02/03/18 20:00 03/05/18 19:59 Heparin Sodium (Porcine) (Heparin 10 Unit/ ml 5 ml Flush) 5 ml PRN PRN FLUSH 02/03/18 12:30 03/05/18 12:29 Objective Vital Signs Date Time Temp Pulse Resp B/P (MAP) Pulse Ox O2 Delivery O2 Flow Rate FiO2 02/03/18 11:24 37.3 102 24 106/77 (87) 95 Room Air 02/03/18 08:24 37.1 99 18 117/72 (87) 96 Room Air 02/03/18 08:10 Room Air 02/03/18 01:00 Room Air 02/02/18 23:39 36.7 101 18 137/84 (101) 96 Room Air 02/02/18 20:03 36.5 96 20 122/73 (89) 95 Room Air 02/02/18 18:57 114 24 124/86 (99) 99 Room Air 02/02/18 16:00 Room Air 02/02/18 15:27 36.5 96 16 105/72 (83) 94 Room Air Physical Exam Notes: General Appearance: WD/WN, no apparent distress Eyes: normal inspection, EOMI, sclerae normal ENT: hearing grossly normal Neck: supple, no adenopathy, thyroid normal, trachea midline Respiratory/Chest: chest non-tender, lungs clear, normal breath sounds, no respiratory distress, no accessory muscle use Cardiovascular: regular rate, rhythm, no edema, no gallop, no murmur Abdomen: normal bowel sounds, no organomegaly, no pulsatile mass, + distended Extremities: normal inspection, no calf tenderness, normal capillary refill, 2 + pedal edema to the knee Neurologic/Psychiatric: alert, normal mood/affect, oriented x 3 Skin: normal color, warm/dry, no rash Lymphatic: no adenopathy Laboratory Results Last Resulted 02/03/18 05:45 Red Blood Count 2.73, Mean Corpuscular Volume 88.3, Mean Corpuscular Hemoglobin 28.9, Mean Corpuscular Hemoglobin Concent 32.8, Mean Platelet Volume 10.0 Last Resulted 02/03/18 05:40 Assessment and Plan 47-year-old man with PMhx of tia, Barretts esophagus, ckd, HTN, HLD, recently dx 'd [facility] Adenocarcinoma of unknown primary source, admitted for evaluation of weakness and tremor. IV ABX to PPX against SBP - Recent hx of paracentesis given Ca DX, ppx against sbp - DC'd vancomycin 2g q12 - DC'd zosyn 3.375 g q12 -Started Ceftriaxone 2g qday -F/U Cx - NGTD Hypokalemia -20 meq by mouth now, 20 meq BID -trend K+ levels daily -Management per Nephro Hypomagnesemia -Trend Mg levels daily -Management per Nephro Hypocalcemia -Trend Ca levels daily -Management per Nephro Metastatic AdenoCarcinoma of unknown orgin -PSA negative -medical records from [facility] Obtained -Consulted Heme/Onc -biopsy @ [facility] of his duodenal ulcer revealed an adenocarcinoma -previously had minimal to no response to cisplatin and obviously tolerated it very poorly -based on bx treat him on the presumption of a duodenal or small bowel primary -not inclined toward FOLFOX due to his minimal response to cisplatin -suggested we could try FOLFIRI instead -bolus infusions of 5-FU, leucovorin, and irinotecan followed by a 46 hour continuous infusion of 5-FU -prn antiemetics -giving his first cycle in the hospital is reasonable -Will start today -Consulted Psych "- Increase Remeron to 30 mg. HS - No criteria for inpatient care" -Consulted Nephro --"The patient has chronic recurrent diarrhea. He has multiple electrolyte abnormalities requiring cautious replacement in setting of renal dysfunction. 25OH vitamin D deficiency noted with hypocalcemia. -- Ergocalciferol 95139 IU weekly -- Calcium carbonate 1,250 mg twice daily (not to be given with food) -- Outpatient follow up with nephrology for continued assessment and management of CKD/MBD -- MgSO4 2 gm IV today -- KCl 40 mEq daily -- Monitor metabolic profile with magnesium and phosphorus daily while inpatient -- Document I/O's -- Nutrition consult appreciated -- PRN loperamide for diarrhea" -Consulted nutrition -- Continue with Regular diet - Will attempt PO supplement with Pt and monitor Pt's acceptance. - Pt agreeable to continue with snacks that had been initiated - Will continue to work with Pt and monitor Pt's labs, weights, PO intake, need for additional interventions/education -Hypoalbuminemia 2/2 AdenoCa trend CMP 1.9 -> 1.8 -> 1.7 Acute on chronic BRYNN in the setting of ATN and tumor lysis syndrome -Nephro Consulted see above -Trending BMP -Trending PO4 -Avoid Nephrotoxic Medications Hyperlipidemia -resumed home statin Anxiety/Insomnia: -provided prn 0.5mg ativan Q6 -gave 1 time IV 0.5mg Ativan last night. Patient said he preferred IV ativan. FULL CODE DVT: Lovenox Diet: Regular Continued [facility] stay due to: multiple IV medications needed Discharge planning: home Resident Tracking Resident Involvement: Resident Care Provided Care Provided: Adult Hospital Medicine Assessment/Plan Resident Physician Supervision Note: I was present with Dr. Leon during the history and exam. I discussed the case with the resident and agree with the findings and plan as documented in the note. Any exceptions or clarifications are listed here: Pt seen and examined at bedside. No acute events overnight. Continued improvement in weakness and tremulousness, walking the floors unassisted with family. Mood continues to improve now that a plan is in place. Family present at bedside. On examination, S1/S2 nl RRR no MCG. CTAB. Abd is mildly TTP inferiorly and mildly distended c/w early return of ascites, modestly increased from yesterday. Metastatic adenocarcinoma - oncology consultation appreciated - discussed with patient the need for electrolyte and CBC monitoring during initiation of chemotherapy but ability to do remainder of observation as outpatient. Patient is acclimating to this idea. In the meanwhile, chemotherapy and PICC placement per Dr. Carson. Electrolyte disturbances - nephrology consultation appreciated - continue repletion and fluid management h/o TIA - will stop Plavix completely without intention to restart 2/2 regularity of paracentesis. Would need to investigate easily accessible outpatient tap (?PCP). Avg between taps has been ~7-10 days, last tap on WednesdayJanuary 31. Adjustment disorder w/ insomnia - psychiatric consultation appreciated - denies SI/HI. Improved sleep w/ IV ativan, defers PO at this time. Continue mirtazapine. D/C andra HAN - continue statin therapy
[2018-02-03] MEDS: ATORVASTATIN 10 MG TAB PO SCH (08:03)
[2018-02-03] MEDS: LORATADINE 10 MG TAB PO SCH (08:04)
[2018-02-03] MEDS: DEXAMETHASONE 4 MG TAB PO SCH ×2 (08:04→20:41)
[2018-02-03] MEDS: PANTOprazole SOD 40 MG TAB PO SCH (08:05)
[2018-02-03] MEDS: POTASSIUM CHLORIDE 20 MEQ TABCR PO SCH (08:05)
--- NOTE | 2018-02-03 08:30 | Oncology Consultation ---
Oncology/Heme Consultation Date of Consultation: Feb 02, 2018. Attending Physician: Ashok Willis MD Reason for Consultation: Metastatic carcinoma Dehydration Refractory malignant effusion and ascites History of Present Illness Mr. Juárez is a 48 year old man with a history of recently diagnosed metastatic carcinoma with an unclear primary. Last month, we admitted him and treated him empirically for a germ cell tumor with etoposide and cisplatin. However, he did very poorly with chemo. He had a number of issues, including intractable nausea/ vomiting, electrolyte wasting, dehydration, and fatigue. He also had worsening, reaccumulating ascites and a pleural effusion, both of which are malignant. He was admitted last week with these complications and ended up transferred to the [facility], at his and his 's request. He was evaluated there by the inpatient oncology service and was stabilized. He was discharged over the weekend and was set to have an outpatient oncology visit this week. However, he returned to the ER yesterday complaining of worsening fatigue, weakness, and reaccumulating ascites. He feels a bit better today after some IV hydration and electrolyte repletion. He is very anxious about going back home and would like to receive his next treatment in the hospital, if possible. Past Medical/Surgical History Medical Problems: (1) Abdominal distension Status: Acute (2) Anemia Status: Acute (3) Ascites Status: Acute (4) Ascites Status: Acute (5) Bilateral pleural effusion Status: Acute (6) Cholangitis Status: Acute (7) Dehydration Status: Acute (8) Hypoxia Status: Acute (9) Metastatic cancer Status: Acute (10) Nausea & vomiting Status: Acute (11) Neutropenia Status: Acute (12) Respiratory distress Status: Acute (13) Tachycardia Status: Acute (14) Thrombopenia Status: Acute Family History Stroke Social History Smoking Status: Never Smoker Drug Use: none Marital Status: Housing Status: lives with significant other Occupation Status: disabled Allergies Coded Allergies: Sulfa Antibiotics (Verified Allergy, Intermediate, RASH, 02/01/18) Home Medications Scheduled Atorvastatin (Lipitor), 10 MG PO DAILY Ciprofloxacin Hcl (Cipro), 500 MG PO BID Clopidogrel (Plavix), 75 MG PO DAILY Dexamethasone (Decadron), 2 MG PO BID Loperamide Hcl (Imodium), 2 MG PO QID Loratadine (Claritin), 10 MG PO DAILY Metoclopramide (Reglan), 10 MG PO ACHS Mirtazapine (Mirtazapine), 15 MG PO HS Montelukast Sodium (Singulair), 10 MG PO DAILY Pantoprazole (Protonix), 40 MG PO DAILY Current Inpatient Medications Current Inpatient Medications Medications (Trade) Dose Ordered Sig/Suraj Route Start Time Stop Time Status Last Admin Dose Admin Enoxaparin Sodium (Lovenox Inj) 40 mg Q24H SQ 02/01/18 21:00 03/03/18 20:59 02/02/18 21:17 40 MG Ondansetron HCl (Zofran Inj) 4 mg Q6H PRN IV 02/01/18 18:15 03/03/18 18:14 Potassium Chloride (Klor-Con Tab) 20 meq QAM PO 02/02/18 08:00 03/04/18 08:59 02/03/18 08:05 20 MEQ Atorvastatin Calcium (Lipitor Tab) 10 mg DAILY PO 02/02/18 08:00 03/04/18 08:59 02/03/18 08:03 10 MG Dexamethasone (Decadron Tab) 2 mg BID PO 02/01/18 21:00 03/03/18 20:59 02/03/18 08:04 2 MG Loratadine (Claritin Tab) 10 mg DAILY PO 02/02/18 08:00 03/04/18 08:59 02/03/18 08:04 10 MG Montelukast Sodium (Singulair Tab) 10 mg HS PO 02/01/18 21:00 03/03/18 20:59 02/02/18 21:16 10 MG Pantoprazole Sodium (Protonix Tab) 40 mg DAILY PO 02/02/18 08:00 03/04/18 08:59 02/03/18 08:05 40 MG Mirtazapine (Remeron Tab) 30 mg HS PO 02/02/18 21:00 03/04/18 20:59 02/02/18 21:16 30 MG Ceftriaxone Sodium 2 gm/ Dextrose 50 ml @ 100 mls/hr DAILY@1400 IV 02/02/18 14:00 02/12/18 13:59 02/02/18 13:59 100 MLS/HR Lorazepam (Ativan Tab) 0.5 mg Q6 PRN PO 02/02/18 20:00 03/04/18 19:59 02/03/18 01:20 0.5 MG Review of Systems Constitutional: + weight loss, + weakness, + fatigue, No fever ENT: No unusual epistaxis Respiratory: No cough, No shortness of breath Cardiovascular: No chest pain Abdomen: No pain, No nausea, No vomiting Musculoskeletal: No joint pain, No muscle pain Genitourinary - Male: No hematuria Hematologic / Lymphatic: No abnormal bleeding/bruising, No night sweats Physical Exam Date Time Temp Pulse Resp B/P (MAP) Pulse Ox O2 Delivery O2 Flow Rate FiO2 02/03/18 01:00 Room Air 02/02/18 23:39 36.7 101 18 137/84 (101) 96 Room Air 02/02/18 20:03 36.5 96 20 122/73 (89) 95 Room Air 02/02/18 18:57 114 24 124/86 (99) 99 Room Air 02/02/18 16:00 Room Air 02/02/18 15:27 36.5 96 16 105/72 (83) 94 Room Air 02/02/18 11:26 36.5 99 16 119/79 (92) 99 Room Air 02/02/18 10:30 Room Air General Appearance: no apparent distress, + pertinent finding (ill-appearing but comfortable) ENT: pharynx normal (mucous membranes moist) Respiratory/Chest: lungs clear, no respiratory distress Cardiovascular: regular rate, rhythm Abdomen/GI: non tender, soft Extremities/Musculoskelatal: + pedal edema Neurologic/Psych: no motor/sensory deficits, alert, oriented x 3 Skin: no rash Laboratory Results Last 24 Hours Test 02/03/18 05:40 Sodium Level 138 mmol/L Potassium Level 3.4 mmol/L Chloride Level 105 mmol/L Carbon Dioxide Level 23 mmol/L Anion Gap 10.0 mmol/L Blood Urea Nitrogen 18 mg/dl Creatinine 1.97 mg/dl Est Creatinine Clear Calc Drug Dose 62.6 ml/min Estimated GFR () 45.6 Estimated GFR (Non- 39.3 BUN/Creatinine Ratio 9.0 Random Glucose 92 mg/dl Calcium Level 6.0 mg/dl Phosphorus Level 3.6 mg/dl Magnesium Level 1.7 mg/dl Total Bilirubin 0.2 mg/dl Aspartate Amino Transf (AST/SGOT) 17 U/L Alanine Aminotransferase (ALT/SGPT) 17 U/L Alkaline Phosphatase 690 U/L Total Protein 4.6 gm/dl Albumin 1.7 gm/dl Globulin 2.9 gm/dl Albumin/Globulin Ratio 0.6 Assessment & Plan Mr. Juárez is mostly stabilizing and may need another day or two of electrolyte repletion and supportive care. I contacted his consulting oncologist in [place] and we discussed his case for a while. The biopsy of his duodenal ulcer revealed an adenocarcinoma, though it could not be further characterized. He had minimal to no response to cisplatin and obviously tolerated it very poorly. As a result, I think it makes sense to change therapy. Given that the ulcer biopsy revealed an adenocarcinoma, I think we can treat him on the presumption of a duodenal or small bowel primary. These are treated in a manner similar to colon cancers, though these patients generally do much worse, both because of a more aggressive disease biology and because of delays in diagnosis , as Mr. Juárez has experienced. I am not inclined toward FOLFOX due to his minimal response to cisplatin. I suggested we could try FOLFIRI instead. This regimen is usually given as an outpatient, but given his anxiety and his somewhat tenuous state, I think giving his first cycle in the hospital is reasonable. We will make arrangements to get started tomorrow. This will entail bolus infusions of 5-FU, leucovorin, and irinotecan followed by a 46 hour continuous infusion of 5-FU. We reviewed expected toxicities and he consented to treatment. We will make arrangements first thing in the morning. He will need electrolytes and counts checked daily and will need PRN oral antiemetics.
[2018-02-03] MEDS ORDERED: POTASSIUM CHLORIDE 20 MEQ TABCR PO STA (08:31)
--- NOTE | 2018-02-03 08:49 | Nephrology Progress Note ---
Nephrology Progress Note Date of Service Feb 03, 2018. Chief Complaint Renal insufficiency, multiple electrolyte abnormalities Subjective No acute events overnight. Mr. Juárez feels well this morning. Appetite fair. No diarrhea. No fevers or chills. Denies abdominal pain. Breathing comfortably. Anxiety regarding chemotherapy given difficulty tolerating prior treatment. Review of Systems A complete review of systems was performed. Pertinent positives are noted above. All other systems are negative. Vital Signs Last 8 Hrs Date Time Temp Pulse Resp B/P (MAP) Pulse Ox O2 Delivery O2 Flow Rate FiO2 02/03/18 08:24 37.1 99 18 117/72 (87) 96 Room Air 02/03/18 01:00 Room Air Last Recorded Weight Weight (Kilograms): 108.500 Physical Exam General Appearance: no apparent distress Head: normocephalic, atraumatic Eyes: normal inspection, sclerae normal ENT: normal ENT inspection, pharynx normal Neck: supple, no JVD Respiratory/Chest: lungs clear, no accessory muscle use, + decreased breath sounds Cardiovascular: regular rate, rhythm, no gallop Abdomen/GI: non tender, + distended Extremities/Musculoskelatal: normal inspection, + pedal edema (dependent) Neurologic/Psych: alert, normal mood/affect Family History Stroke Social History Drug Use: none Marital Status: Housing Status: lives with family Occupation: disabled Laboratory Results Past 24 Hours 02/03/18 05:40 Test 02/03/18 05:40 Anion Gap 10.0 mmol/L (3-11) Est Creatinine Clear Calc Drug Dose 62.6 ml/min Estimated GFR () 45.6 Estimated GFR (Non- 39.3 BUN/Creatinine Ratio 9.0 (10-20) Calcium Level 6.0 mg/dl (8.5-10.1) Phosphorus Level 3.6 mg/dl (2.5-4.9) Magnesium Level 1.7 mg/dl (1.8-2.4) Total Bilirubin 0.2 mg/dl (0.2-1) Aspartate Amino Transf (AST/SGOT) 17 U/L (15-37) Alanine Aminotransferase (ALT/SGPT) 17 U/L (12-78) Alkaline Phosphatase 690 U/L (45-117) Total Protein 4.6 gm/dl (6.4-8.2) Albumin 1.7 gm/dl (3.4-5.0) Globulin 2.9 gm/dl (2.5-4.0) Albumin/Globulin Ratio 0.6 (0.9-2) 25-Hydroxy Vitamin D Total 16.5 ng/ml (30-100) Allergies Coded Allergies: Sulfa Antibiotics (Verified Allergy, Intermediate, RASH, 02/01/18) Medications Current Inpatient Medications Medications (Trade) Dose Ordered Sig/Suraj Route Start Time Stop Time Status Last Admin Dose Admin Enoxaparin Sodium (Lovenox Inj) 40 mg Q24H SQ 02/01/18 21:00 03/03/18 20:59 02/02/18 21:17 40 MG Ondansetron HCl (Zofran Inj) 4 mg Q6H PRN IV 02/01/18 18:15 03/03/18 18:14 Potassium Chloride (Klor-Con Tab) 20 meq QAM PO 02/02/18 08:00 03/04/18 08:59 02/03/18 08:05 20 MEQ Atorvastatin Calcium (Lipitor Tab) 10 mg DAILY PO 02/02/18 08:00 03/04/18 08:59 02/03/18 08:03 10 MG Dexamethasone (Decadron Tab) 2 mg BID PO 02/01/18 21:00 03/03/18 20:59 02/03/18 08:04 2 MG Loratadine (Claritin Tab) 10 mg DAILY PO 02/02/18 08:00 03/04/18 08:59 02/03/18 08:04 10 MG Montelukast Sodium (Singulair Tab) 10 mg HS PO 02/01/18 21:00 03/03/18 20:59 02/02/18 21:16 10 MG Pantoprazole Sodium (Protonix Tab) 40 mg DAILY PO 02/02/18 08:00 03/04/18 08:59 02/03/18 08:05 40 MG Mirtazapine (Remeron Tab) 30 mg HS PO 02/02/18 21:00 03/04/18 20:59 02/02/18 21:16 30 MG Ceftriaxone Sodium 2 gm/ Dextrose 50 ml @ 100 mls/hr DAILY@1400 IV 02/02/18 14:00 02/12/18 13:59 02/02/18 13:59 100 MLS/HR Lorazepam (Ativan Tab) 0.5 mg Q6 PRN PO 02/02/18 20:00 03/04/18 19:59 02/03/18 01:20 0.5 MG Impression (1) Hypokalemia (2) Hypocalcemia (3) Acute kidney injury (4) Hypomagnesemia Mr. Juárez is a 47-year-old male with CKD and advanced metastatic adenocarcinoma. He is notably hypoalbuminemic with recurrent malignant ascites and pleural effusions. Complicating CKD are multiple episodes of BRYNN. This is at least partially related to prior treatment with cisplatin. Creatinine currently remains stable at 2.0 mg/dL. BP and volume status are reasonable. 25OH vitamin D deficiency noted with hypocalcemia. Hypomagnesemia and hypokalemia being replaced. Plan of care includes inpatient monitoring while starting treatment with 5-FU, leucovorin, and irinotecan. Recommendations -- Ergocalciferol 94124 IU weekly -- Calcium carbonate 1,250 mg twice daily (not to be given with food) -- Outpatient follow up with nephrology for continued assessment and management of CKD/MBD -- MgSO4 2 gm IV today -- KCl 40 mEq daily -- Monitor metabolic profile with magnesium and phosphorus daily while inpatient -- Document I/O's -- Nutrition consult appreciated -- PRN loperamide for diarrhea
[2018-02-03] MEDS: MAGNESIUM SULFATE 1GM / D5W 100 ML IV SCH ×2 (09:17→10:12)
[2018-02-03 09:53] LABS: MEAN CORPUSCULAR HGB CONC 32.8 g/dl (32-36); NUCLEATED RED BLOOD CELL ABS 0.08 K/uL (0-0); PLATELET COUNT 306 K/uL (130-400)
[2018-02-03] MEDS ORDERED: CALCIUM CARBONATE 1250MG TAB PO ONE (10:00)
[2018-02-03 10:34] LABS: HEMATOCRIT 24.1 % (42-52); HEMOGLOBIN 7.9 g/dL (14.0-18.0); MEAN CELL VOLUME 88.3 fL (80-100); MEAN CORPUSCULAR HEMOGLOBIN 28.9 pg (25-34); RED CELL DISTRIBUTION WIDTH CV 15.3 % (11.5-14.5); WHITE BLOOD COUNT 25.06 K/uL (4.8-10.8)
[2018-02-03] MEDS: ERGOCALCIFEROL 50,000 INTER.UNIT CAP PO SCH (11:23)
[2018-02-03] MEDS: CEFTRIAXONE SOD INJ 2000 MG in DEXTROSE 5% 50ML IV SCH (12:34)
[2018-02-03] MEDS ORDERED: DiphenhydrAMINE HCL 50 MG/ML VIAL IV PRN (13:00)
[2018-02-03] MEDS ORDERED: HYDROCORTISONE IV 100 MG in SYRINGE 0 ML IV PRN (13:00)
[2018-02-03] MEDS ORDERED: METHYLPREDNISOLONE 125 MG in SYRINGE 0 ML IV PRN (13:15)
[2018-02-03] MEDS ORDERED: ONDANSETRON IV ONE (13:30)
[2018-02-03] MEDS ORDERED: DEXAMETHASONE IV ONE (13:30)
[2018-02-03] MEDS ORDERED: DEXTROSE 5% IV ONE (13:30)
[2018-02-03] MEDS ORDERED: FOSAPREPITANT DIMEGLUMINE INJ 150 MG in SODIUM CHLORIDE 0.9% 150ML 145 ML IV SCH (13:30)
[2018-02-03] MEDS ORDERED: IRINOTECAN IV SCH (14:15)
[2018-02-03] MEDS ORDERED: DEXTROSE 5% IV SCH ×2 (14:15)
[2018-02-03] MEDS ORDERED: LEUCOVORIN CALCIUM IV SCH (14:15)
[2018-02-03] MEDS ORDERED: FLUOROURACIL IV SCH (16:00)
[2018-02-03] MEDS: FLUOROURACIL IV SCH (16:55)
[2018-02-03] MEDS: SODIUM CHLORIDE 0.9% IV SCH (16:55)
[2018-02-03] MEDS: ONDANSETRON INJ 2 MG/ML 2 ML VIAL IV PRN (19:27)
[2018-02-03] MEDS: LOPERAMIDE HCL 2 MG CAP PO PRN (19:27)
[2018-02-03] MEDS: BOOST BREEZE NUTRITION DRINK 1 BOX PO SCH (20:39)
[2018-02-03] MEDS: MIRTAZAPINE TAB 15 MG TAB PO SCH (20:40)
[2018-02-03] MEDS: MONTELUKAST SOD 10 MG TAB PO SCH (20:41)
[2018-02-03] MEDS: ENOXAPARIN 40 MG/0.4 ML SYR SQ SCH (20:41)
[2018-02-03] MEDS: CALCIUM CARBONATE 1250MG TAB PO SCH (20:59)
[2018-02-03] MEDS: LORAZEPAM INJ 0.5 MG in SYRINGE 0.75 ML IV PRN (20:59)
[2018-02-04] VITALS (10 sets, daily range): BP systolic 98–162; BP diastolic 66–103; PULSE 96–107; TEMP 36.4–37.6; O2SAT 93–100
[2018-02-04] MEDS: LORAZEPAM 0.5 MG TAB PO PRN ×3 (03:08→17:39)
[2018-02-04] MEDS: ONDANSETRON INJ 2 MG/ML 2 ML VIAL IV PRN ×2 (03:08→18:49)
[2018-02-04] MEDS: LOPERAMIDE HCL 2 MG CAP PO PRN ×2 (03:08→11:59)
[2018-02-04 06:16] LABS: BASO % 0.1 %; BASO ABS # 0.01 K/uL (0-0.2); HEMATOCRIT 22.2 % (42-52); HEMOGLOBIN 7.5 g/dL (14.0-18.0); IG# 0.81 K/uL (0.00-0.02); LYMPH % 4.4 %; LYMPH ABS # 0.84 K/uL (1.2-3.4); MEAN CELL VOLUME 88.8 fL (80-100); MEAN CORPUSCULAR HGB CONC 33.8 g/dl (32-36); MEAN PLATELET VOLUME 9.6 fL (7.4-10.4); MONO ABS # 0.39 K/uL (0.11-0.59); NEUT % 89.3 %; NEUT ABS # 17.26 K/uL (1.4-6.5); NUCLEATED RED BLOOD CELL ABS 0.07 K/uL (0-0); PLATELET COUNT 330 K/uL (130-400); RED CELL DISTRIBUTION WIDTH CV 15.3 % (11.5-14.5); RED CELL DISTRIBUTION WIDTH SD 47.3 fL (36.4-46.3); WHITE BLOOD COUNT 19.31 K/uL (4.8-10.8)
[2018-02-04 06:51] LABS: ALBUMIN 1.6 gm/dl (3.4-5.0); CREATININE 2.04 mg/dl (0.60-1.40); PHOSPHORUS 4.1 mg/dl (2.5-4.9); POTASSIUM 3.8 mmol/L (3.5-5.1); TOTAL PROTEIN 4.7 gm/dl (6.4-8.2)
--- NOTE | 2018-02-04 06:54 | Family Medicine Progress Note ---
Progress Note Date of Service Feb 04, 2018. Subjective Pt evaluation today including: conversation w/ patient, conversation w/ family , physical exam, chart review, lab review, conversation w/ financial management consultant, review of inpatient medication list Pain: 5/10 PO Intake: tolerating Voiding: no voiding problems Patient was lying in bed when i examined him. Patient appeared pale and had a depressed affect. Patient reported significant pain and abdominal distension 2/ 2 to malignant ascites. Reported he did not sleep well 2/2 abdominal fullness and pain. He is tolerating his chemotherapy well. He reported diarrhea is improved s/p immodium. Later in the afternoon Dr. Bojorquez and I had an extensive conversation with the patient and his about his prognosis and plans for the next few weeks. Constitutional: + weakness, No fever, No chills, No sweats Eyes: No worsening of vision ENT: No hearing loss Respiratory: + dyspnea on exertion (2/2 abd fullness), No cough, No sputum, No wheezing, No shortness of breath Cardiovascular: No chest pain, No orthopnea, No edema, No claudication, No palpitations Abdomen: No pain, No nausea, No vomiting, No diarrhea, No constipation Musculoskeletal: No joint pain Male : No dysuria, No urinary frequency, No incontinence Neurologic: No memory loss Psychiatric: + anxiety Heme: No abnormal bleeding/bruising, No clotting problems Endo: No fatigue, No excessive thirst, No excessive urination Skin: No rash, No itch, No new/changing skin lesions All Other Systems: Reviewed and Negative Medications Current Inpatient Medications Medications (Trade) Dose Ordered Sig/Suraj Route Start Time Stop Time Status Last Admin Dose Admin Enoxaparin Sodium (Lovenox Inj) 40 mg Q24H SQ 02/01/18 21:00 03/03/18 20:59 02/03/18 20:41 40 MG Ondansetron HCl (Zofran Inj) 4 mg Q6H PRN IV 02/01/18 18:15 03/03/18 18:14 02/04/18 03:08 4 MG Atorvastatin Calcium (Lipitor Tab) 10 mg DAILY PO 02/02/18 08:00 03/04/18 08:59 02/03/18 08:03 10 MG Dexamethasone (Decadron Tab) 2 mg BID PO 02/01/18 21:00 03/03/18 20:59 02/03/18 20:41 2 MG Loratadine (Claritin Tab) 10 mg DAILY PO 02/02/18 08:00 03/04/18 08:59 02/03/18 08:04 10 MG Montelukast Sodium (Singulair Tab) 10 mg HS PO 02/01/18 21:00 03/03/18 20:59 02/03/18 20:41 10 MG Pantoprazole Sodium (Protonix Tab) 40 mg DAILY PO 02/02/18 08:00 03/04/18 08:59 02/03/18 08:05 40 MG Mirtazapine (Remeron Tab) 30 mg HS PO 02/02/18 21:00 03/04/18 20:59 02/03/18 20:40 30 MG Ceftriaxone Sodium 2 gm/ Dextrose 50 ml @ 100 mls/hr DAILY@1400 IV 02/02/18 14:00 02/12/18 13:59 02/03/18 12:34 100 MLS/HR Lorazepam (Ativan Tab) 0.5 mg Q6 PRN PO 02/02/18 20:00 03/04/18 19:59 02/04/18 03:08 0.5 MG Potassium Chloride (Klor-Con Tab) 40 meq QAM PO 02/04/18 08:00 03/04/18 08:59 Ergocalciferol (Vitamin D Cap) 50,000 interunit Th@0900 PO 02/03/18 12:00 03/05/18 11:59 02/03/18 11:23 50,000 INTERUNIT Calcium Carbonate (oS-Oli 500 TAB) 1,250 mg BID PO 02/03/18 20:00 03/05/18 19:59 02/03/18 20:59 1,250 MG Loperamide HCl (Imodium Cap) 2 mg Q4H PRN PO 02/03/18 08:45 03/05/18 08:44 02/04/18 03:08 2 MG Enteral Nutritional Formula (Boost Breeze Nutritional Drink) 1 box BID PO 02/03/18 20:00 03/05/18 19:59 02/03/18 20:39 1 BOX Heparin Sodium (Porcine) (Heparin 10 Unit/ ml 5 ml Flush) 5 ml PRN PRN FLUSH 02/03/18 12:30 03/05/18 12:29 02/04/18 05:45 5 ML Diphenhydramine HCl (Benadryl Inj) 50 mg UD PRN IV 02/03/18 13:00 02/06/18 12:59 Hydrocortisone Sodium Succinate 100 mg/Syringe 2 ml @ 4 mls/min UD PRN IV 02/03/18 13:00 02/06/18 12:59 Methylprednisolone Sodium Succinate 125 mg/Syringe 2 ml @ 1.5 mls/min UD PRN IV 02/03/18 13:15 02/06/18 13:14 Fluorouracil 2950 mg/Sodium Chloride 1,059 ml @ 46 mls/hr Q23H IV 02/03/18 16:20 02/05/18 14:19 02/03/18 16:55 46 MLS/HR Lorazepam (Ativan Inj) 0.5 mg QPM PRN IV 02/03/18 21:00 02/11/18 00:00 Lorazepam 0.5 mg/ Syringe 1 ml @ 1 mls/min PM PRN IV 02/03/18 19:00 03/05/18 18:59 02/03/18 20:59 1 MLS/MIN Objective Vital Signs Date Time Temp Pulse Resp B/P (MAP) Pulse Ox O2 Delivery O2 Flow Rate FiO2 02/04/18 03:16 36.7 96 18 98/66 (77) 96 Room Air 02/04/18 00:22 36.9 96 18 124/78 (93) 96 Room Air 02/03/18 21:30 36.5 97 22 116/63 (80) 92 Room Air 02/03/18 21:09 36.4 95 20 121/88 (99) 95 Room Air 02/03/18 20:14 Room Air 02/03/18 19:15 36.6 100 18 161/83 (109) 98 Room Air 02/03/18 16:55 37.1 90 20 118/77 (91) 94 Room Air 02/03/18 16:00 96 Room Air 02/03/18 15:30 36.6 89 20 128/86 (100) 96 Room Air 02/03/18 15:00 36.7 112 16 129/92 (104) 94 Room Air 02/03/18 14:19 36.5 108 18 135/99 (111) 93 Room Air 02/03/18 13:17 113 97 7/19/18 11:24 37.3 102 24 106/77 (87) 95 Room Air 02/03/18 08:24 37.1 99 18 117/72 (87) 96 Room Air 02/03/18 08:10 Room Air Physical Exam General Appearance: WD/WN, no apparent distress Eyes: normal inspection, EOMI, sclerae normal ENT: hearing grossly normal Neck: supple, no adenopathy, thyroid normal, no JVD, no carotid bruits, trachea midline Respiratory/Chest: chest non-tender, lungs clear, normal breath sounds, no respiratory distress, no accessory muscle use Cardiovascular: regular rate, rhythm, no edema, no gallop, no JVD, no murmur Abdomen: normal bowel sounds, non tender, soft, no organomegaly, no pulsatile mass Extremities: non-tender, normal inspection, no calf tenderness, normal capillary refill, pelvis stable, + pedal edema (1+ to mid fang) Neurologic/Psychiatric: no motor/sensory deficits, alert, normal mood/affect, oriented x 3 Skin: normal color, warm/dry, no rash Lymphatic: no adenopathy Laboratory Results Last Resulted 02/04/18 05:48 Red Blood Count 2.50, Mean Corpuscular Volume 88.8, Mean Corpuscular Hemoglobin 30.0, Mean Corpuscular Hemoglobin Concent 33.8, Mean Platelet Volume 9.6, Neutrophils (%) (Auto) 89.3, Lymphocytes (%) (Auto) 4.4, Monocytes (%) (Auto) 2.0, Eosinophils (%) (Auto) 0.0, Basophils (%) (Auto) 0.1, Neutrophils # (Auto) 17.26, Lymphocytes # (Auto) 0.84, Monocytes # (Auto) 0.39, Eosinophils # (Auto) 0.00, Basophils # (Auto) 0.01 Last Resulted 02/04/18 05:48 Assessment and Plan 47-year-old man with PMhx of tia, Barretts esophagus, ckd, HTN, HLD, recently dx 'd [facility] Adenocarcinoma of unknown primary source, admitted for evaluation of weakness and tremor. IV ABX to PPX against SBP and CHEMO ppx - Recent hx of paracentesis given Ca DX, ppx against sbp - Day 3 of Iv Ceftriaxone - F/U Cx - NGTD Hypokalemia -20 meq by mouth now, 20 meq BID -trend K+ levels daily -Management per Nephro -S/P paracentesis ordered pm labs Hypomagnesemia -Trend Mg levels daily -Management per Nephro -S/P paracentesis ordered pm labs Hypocalcemia -Trend Ca levels daily -Management per Nephro -S/P paracentesis ordered pm labs Metastatic AdenoCarcinoma of unknown orgin -PSA negative -medical records from [facility] Obtained -Consulted Heme/Onc -biopsy @ [facility] of his duodenal ulcer revealed an adenocarcinoma -previously had minimal to no response to cisplatin and obviously tolerated it very poorly -based on bx treat him on the presumption of a duodenal or small bowel primary -Day 2 of FOLFIRI -bolus infusions of 5-FU, leucovorin, and irinotecan followed by a 46 hour continuous infusion of 5-FU -prn antiemetics -Continue the continuous infusion 5-FU until he completes 48 hours -Ascites is worsening and I am fine with a paracentesis today -Albumin is very low -> third-spacing, I think is contributing to his dehydration and electrolyte issues -First cycle given inpatient -Consulted Psych "- Increase Remeron to 30 mg. HS - No criteria for inpatient care" -Consulted Nephro --"The patient has chronic recurrent diarrhea. He has multiple electrolyte abnormalities requiring cautious replacement in setting of renal dysfunction. 25OH vitamin D deficiency noted with hypocalcemia. -- Ergocalciferol 05917 IU weekly -- Calcium carbonate 1,250 mg twice daily (not to be given with food) -- Outpatient follow up with nephrology for continued assessment and management of CKD/MBD -- KCl 40 mEq daily -- Monitor metabolic profile with magnesium and phosphorus calcium and albumindaily while inpatient -- Document I/O's -- Nutrition consult appreciated -- PRN loperamide for diarrhea -- No other immediate recommendations -- may benefit symptomatically from a transfusion" -Consulted nutrition - Continue with Regular diet - Will attempt PO supplement with Pt and monitor Pt's acceptance. - Pt agreeable to continue with snacks that had been initiated - Will continue to work with Pt and monitor Pt's labs, weights, PO intake, need for additional interventions/education -Hypoalbuminemia 2/2 AdenoCa trend CMP 1.9 -> 1.8 -> 1.7 -> 1.6 Acute on chronic BRYNN in the setting of ATN and tumor lysis syndrome -Nephro Consulted see above -Trending BMP -Trending PO4 -Avoid Nephrotoxic Medications Hyperlipidemia -resumed home statin Anxiety/Insomnia: -provided prn 0.5mg ativan Q6 -gave 1 time IV 0.5mg Ativan last night. Patient said he preferred IV ativan. Hypertension -1 episode of elevated BP this evening, for now just monitor if trend would consider IV hydralzine prn FULL CODE DVT: Lovenox Diet: Regular Continued [facility] stay due to: multiple IV medications needed Discharge planning: home Resident Tracking Resident Involvement: Resident Care Provided Care Provided: Adult Hospital Medicine
[2018-02-04 07:23] LABS: CALCIUM 5.9 mg/dl (8.5-10.1)
[2018-02-04] MEDS: PANTOprazole SOD 40 MG TAB PO SCH (07:56)
[2018-02-04] MEDS: ATORVASTATIN 10 MG TAB PO SCH (07:57)
[2018-02-04] MEDS: DEXAMETHASONE 4 MG TAB PO SCH ×2 (07:57→19:56)
[2018-02-04] MEDS: LORATADINE 10 MG TAB PO SCH (07:57)
[2018-02-04] MEDS: BOOST BREEZE NUTRITION DRINK 1 BOX PO SCH ×2 (07:58→19:57)
[2018-02-04] MEDS: POTASSIUM CHLORIDE 20 MEQ TABCR PO SCH (07:58)
[2018-02-04] MEDS: CALCIUM CARBONATE 1250MG TAB PO SCH ×2 (10:24→19:55)
--- NOTE | 2018-02-04 11:44 | PROGRESS NOTE ---
DATE: 02/04/2018 RENAL PROGRESS NOTE SUBJECTIVE: Mr. Juárez is currently receiving his chemotherapy. He is currently on 5-FU drip. Yesterday, he received a bolus of 5-FU as well as leucovorin and irinotecan. He seemed to tolerate that reasonably well. He has no direct side effects of his drug. However, he continues to be uncomfortable with symptoms of dyspnea with exertion as well as a fullness in his abdomen from his ascitic fluid. He feels that he needs "tapped." He has had frequent paracenteses in the past. He only gets temporary relief from the procedure. Now he is short of breath after walking in the dimas. Apparently there has been a reluctance to do another paracentesis because of the fact that he was administered Plavix. However, the chart clearly indicates that was offered to him on 02/02/2018, but he refused. I can find no other documentation that he received Plavix. However, he has been getting Lovenox on a regular basis. His last dose was yesterday at about 8:30 p.m. He has had no muscle spasms or cramps. He generally feels weak. OBJECTIVE: GENERAL: On physical exam, he appears as a chronically ill gentleman who was comfortable and able to carry on a conversation without difficulty. VITAL SIGNS: He is afebrile (36.4), his blood pressure 122/87, his pulse 105 and regular, respiratory rate 16, his pulse ox 92-96% on room air. SKIN: Shows normal skin turgor. He is obviously pale in complexion. He has multiple scattered ecchymoses. LYMPHATICS: Show no definite palpable lymphadenopathy, although there is a fullness in the left axilla. HEAD: Normal. EYES: Grossly normal. He is not icteric. The fundi were not examined. EARS, NOSE, MOUTH AND THROAT: Unremarkable. His oral mucous membranes are moist. NECK: Supple. There is no jugular venous distention, carotid bruit or thyromegaly. CHEST: Shows perhaps a slight decrease in breath sounds on the left compared to the right but is otherwise clear with no wheezes, rales or rhonchi. CARDIAC: Shows a regular rhythm. S1 and S2 are normal. I hear no murmur or gallop. ABDOMEN: A bit protuberant. It is not tender. He does have a positive fluid wave. There is no definite organomegaly or mass palpable. EXTREMITIES: Show no cyanosis or clubbing. He does have 1-2+ generalized edema. Peripheral pulses are palpable. NEUROLOGIC: Shows no current lateralizing changes. His urine output has been reasonably good. PERTINENT LABORATORY WORK: From today shows a white count of 19,310. He has 89.3% neutrophils, 4.4% lymphocytes, 2.0% monocytes and 0.1% basophils. His hemoglobin is 7.5, his hematocrit 22.2, his platelet count 330,000. Clinical chemistries show a sodium of 136 mmol/L, potassium 3.8 mmol/L, chlorides of 105 mmol/L, and CO2 content 23 mmol/L. His BUN is 23 and his creatinine 2.04. His random blood sugar was 117. His serum calcium is 5.9, phosphate 4.1, magnesium is 1.7. His total bilirubin is 0.2. His AST is 17, his ALT is 17 and his alkaline phosphatase is 669. His total protein is 4.7. His albumin 1.6. ASSESSMENT: At least for now, Mr. Juárez appears to be reasonably stable from the renal standpoint, although his creatinine is slightly higher. I suspect that there is a significant degree of a prerenal component to the decrease in his renal function associated with his very low serum albumin of 1.6. Although his anion gap is reported to be only 9, if one were to factor in his serum albumin, his anion gap is probably more significantly elevated to a level of possibly equivalent to 15-16. Other acid base fluid and electrolyte issues include his low serum calcium. However, he is getting calcium. His corrected calcium would probably be more in line with about 7.9 mg/dL. He has minimal hypomagnesemia. RECOMMENDATIONS: No change in his current regimen. I would continue with him with his calcium and potassium supplements. I think that he could probably safely have a paracentesis, but I would probably wait until late this afternoon until his Lovenox is less of an issue. An alternative would be to wait and tap him in the morning again purely for his comfort. No other immediate recommendations. Would continue to monitor his laboratory work including his basic metabolic profile and a serum calcium and albumin. He may benefit symptomatically from a transfusion. His significant anemia may be another factor impacting one of his major complaints which is dyspnea with exertion. Dr. Cavazos will resume following Mr. Juárez tomorrow.
[2018-02-04] MEDS: CEFTRIAXONE SOD INJ 2000 MG in DEXTROSE 5% 50ML IV SCH (13:57)
--- NOTE | 2018-02-04 15:18 | DIAGNOSTIC IMAGING REPORT ---
PARACENTESIS ABDOMEN W/IMAGING CLINICAL HISTORY: Dx/Tx for ascities 2/2 metastatic AdenoCA COMPARISON STUDY: No previous studies for comparison. PROCEDURE: The risks, benefits, and alternatives to the procedure were discussed with the patient including the risk of bleeding, infection and injury to adjacent structures. The patient agreed to the procedure and informed written consent was obtained. The procedure was performed by Dr. Rutledge following a time out. Following real-time ultrasound localization, the skin was prepped and draped. Following local anesthesia with Xylocaine, the sheath paracentesis needle was inserted and approximately 7.5 liters of straw-colored fluid was removed by vacuum suction. The patient tolerated the procedure well and no immediate complications were evident. IMPRESSION: Ultrasound-guided paracentesis with removal of 7.5 liters of ascites. The above report was generated using voice recognition software. It may contain grammatical, syntax or spelling errors. Electronically signed by: Wang Rutledge M.D. 02/04/2018 3:17 PM Dictated Date/Time: 02/04/2018 3:15 PM
--- NOTE | 2018-02-04 16:59 | Hematology/Oncology Prog Note ---
Hematology/Onc Progress Note Date of Service Feb 04, 2018. Diagnoses Metastatic adenocarcinoma, possibly of a small bowel primary Refractory ascites Medications Medications Administered Medications (Trade) Dose Ordered Sig/Suraj Route Start Time Stop Time Status Last Admin Dose Admin Sodium Chloride 500 ml @ 999 mls/hr Q31M STAT IV 02/01/18 12:33 02/01/18 13:03 DC 02/01/18 14:00 999 MLS/HR Vancomycin HCl 1000 mg/Sodium Chloride 270 ml @ 125 mls/hr NOW STAT IV 02/01/18 14:53 02/01/18 17:02 DC 02/01/18 15:58 125 MLS/HR Piperacillin Sod/ Tazobactam Sod 3.375 gm/Dextrose 115 ml @ 230 mls/hr NOW ONCE IV 02/01/18 15:15 02/01/18 15:44 DC 02/01/18 15:29 230 MLS/HR Potassium Chloride 100 ml @ 100 mls/hr NOW STAT IV 02/01/18 15:41 02/01/18 16:40 DC 02/01/18 15:59 100 MLS/HR Magnesium Sulfate 100 ml @ 100 mls/hr NOW STAT IV 02/01/18 15:41 02/01/18 16:40 DC 02/01/18 15:59 100 MLS/HR Enoxaparin Sodium (Lovenox Inj) 40 mg Q24H SQ 02/01/18 21:00 03/03/18 20:59 02/03/18 20:41 40 MG Zolpidem Tartrate (Ambien Tab) 2.5 mg HSZ PRN PO 02/01/18 18:15 02/02/18 20:06 DC 02/01/18 23:43 2.5 MG Ondansetron HCl (Zofran Inj) 4 mg Q6H PRN IV 02/01/18 18:15 03/03/18 18:14 02/04/18 03:08 4 MG Magnesium Sulfate 100 ml @ 100 mls/hr Q1H IV 02/01/18 22:00 02/01/18 23:59 DC 02/01/18 23:48 100 MLS/HR Calcium Gluconate 2000 mg/Sodium Chloride 70 ml @ 240 mls/hr NOW ONCE IV 02/01/18 21:30 02/01/18 21:47 DC 02/01/18 22:09 240 MLS/HR Potassium Chloride (Klor-Con Tab) 20 meq TODAY@2100 ONCE PO 02/01/18 21:00 02/01/18 21:03 DC 02/01/18 21:14 20 MEQ Potassium Chloride (Klor-Con Tab) 20 meq QAM PO 02/02/18 08:00 02/03/18 08:31 DC 02/03/18 08:05 20 MEQ Atorvastatin Calcium (Lipitor Tab) 10 mg DAILY PO 02/02/18 08:00 03/04/18 08:59 02/04/18 07:57 10 MG Dexamethasone (Decadron Tab) 2 mg BID PO 02/01/18 21:00 03/03/18 20:59 02/04/18 07:57 2 MG Loratadine (Claritin Tab) 10 mg DAILY PO 02/02/18 08:00 03/04/18 08:59 02/04/18 07:57 10 MG Mirtazapine (Remeron Solutab) 15 mg HS PO 02/01/18 21:00 02/02/18 12:00 DC 02/01/18 21:14 15 MG Montelukast Sodium (Singulair Tab) 10 mg HS PO 02/01/18 21:00 03/03/18 20:59 02/03/18 20:41 10 MG Pantoprazole Sodium (Protonix Tab) 40 mg DAILY PO 02/02/18 08:00 03/04/18 08:59 02/04/18 07:56 40 MG Vancomycin HCl 1000 mg/Sodium Chloride 270 ml @ 125 mls/hr ONE ONCE IV 02/01/18 21:30 02/01/18 23:39 DC 02/01/18 22:09 125 MLS/HR Piperacillin Sod/ Tazobactam Sod 3.375 gm/Dextrose 115 ml @ 28.75 mls/ hr Q8H IV 02/01/18 22:00 02/02/18 13:13 DC 02/02/18 05:34 28.75 MLS/HR Vancomycin HCl 1500 mg/Sodium Chloride 530 ml @ 200 mls/hr Q14H IV 02/02/18 10:00 02/02/18 13:14 DC 02/02/18 09:54 200 MLS/HR Potassium Chloride (Klor-Con M10) 10 meq NOW STAT PO 02/02/18 08:48 02/02/18 08:49 DC 02/02/18 09:04 10 MEQ Calcium Gluconate 1000 mg/Sodium Chloride 60 ml @ 240 mls/hr NOW STAT IV 02/02/18 08:48 02/02/18 09:04 DC 02/02/18 09:04 240 MLS/HR Mirtazapine (Remeron Tab) 30 mg HS PO 02/02/18 21:00 03/04/18 20:59 02/03/18 20:40 30 MG Ceftriaxone Sodium 2 gm/ Dextrose 50 ml @ 100 mls/hr DAILY@1400 IV 02/02/18 14:00 02/12/18 13:59 02/04/18 13:57 100 MLS/HR Lorazepam (Ativan Tab) 0.5 mg Q6 PRN PO 02/02/18 20:00 03/04/18 19:59 02/04/18 10:33 0.5 MG Lorazepam 0.5 mg/ Syringe 1 ml @ 1 mls/min NOW ONCE IV 02/02/18 20:30 02/02/18 20:31 DC 02/02/18 20:34 1 MLS/MIN Magnesium Sulfate 100 ml @ 100 mls/hr Q1H IV 02/03/18 09:00 02/03/18 10:59 DC 02/03/18 10:12 100 MLS/HR Potassium Chloride (Klor-Con Tab) 40 meq QAM PO 02/04/18 08:00 03/04/18 08:59 02/04/18 07:58 40 MEQ Potassium Chloride (Klor-Con Tab) 20 meq NOW STAT PO 02/03/18 08:31 02/03/18 08:38 DC 02/03/18 09:17 20 MEQ Ergocalciferol (Vitamin D Cap) 50,000 interunit Th@0900 PO 02/03/18 12:00 03/05/18 11:59 02/03/18 11:23 50,000 INTERUNIT Calcium Carbonate (oS-Oli 500 TAB) 1,250 mg BID PO 02/03/18 20:00 03/05/18 19:59 02/04/18 10:24 1,250 MG Calcium Carbonate (oS-Oli 500 TAB) 1,250 mg TODAY@1000 ONCE PO 02/03/18 10:00 02/03/18 10:02 DC 02/03/18 11:23 1,250 MG Loperamide HCl (Imodium Cap) 2 mg Q4H PRN PO 02/03/18 08:45 03/05/18 08:44 02/04/18 11:59 2 MG Enteral Nutritional Formula (Boost Breeze Nutritional Drink) 1 box BID PO 02/03/18 20:00 03/05/18 19:59 02/04/18 07:58 1 BOX Heparin Sodium (Porcine) (Heparin 10 Unit/ ml 5 ml Flush) 5 ml PRN PRN FLUSH 02/03/18 12:30 03/05/18 12:29 02/04/18 05:45 5 ML Ondansetron HCl 16 mg/ Dexamethasone Sodium Phosphate 10 mg/Dextrose 60.5 ml @ 180 mls/hr TODAY@1330 ONCE IV 02/03/18 13:30 02/03/18 13:50 DC 02/03/18 13:40 180 MLS/HR Leucovorin Calcium 984 mg/ Dextrose 149.2 ml @ 100 mls/hr TODAY@1415 IV 02/03/18 14:15 02/03/18 23:59 DC 02/03/18 14:53 100 MLS/HR Irinotecan HCl 400 mg/Irinotecan HCl 40 mg/Dextrose 572 ml @ 380 mls/hr TODAY@1415 IV 02/03/18 14:15 02/03/18 23:59 DC 02/03/18 14:54 380 MLS/HR Fluorouracil 980 mg/Syringe 19.6 ml @ 6 mls/min TODAY@1600 IV 02/03/18 16:00 02/03/18 23:59 DC 02/03/18 16:54 6 MLS/MIN Fosaprepitant 150 mg/Sodium Chloride 150 ml @ 300 mls/hr TODAY@1330 IV 02/03/18 13:30 02/03/18 20:00 DC 02/03/18 13:40 300 MLS/HR Fluorouracil 2950 mg/Sodium Chloride 1,059 ml @ 46 mls/hr Q23H IV 02/03/18 16:20 02/05/18 14:19 02/03/18 16:55 46 MLS/HR Lorazepam 0.5 mg/ Syringe 1 ml @ 1 mls/min PM PRN IV 02/03/18 19:00 03/05/18 18:59 02/03/18 20:59 1 MLS/MIN Subjective Mr. Juárez started chemotherapy yesterday. He did generally well overnight. He had some mild diarrhea and modest GI upset, but no nausea or vomiting and no acute issues. He is feeling more bloated today and would like to try another paracentesis. Review of Systems: Constitutional: + weakness, + fatigue Respiratory: No cough, No shortness of breath Cardiovascular: No chest pain Abdomen: + pain, + nausea (mild), + diarrhea, + problem reported (abdominal distention) Musculoskeletal: No joint pain, No muscle pain Heme: No abnormal bleeding/bruising Vital Signs Vital Signs Past 12 Hours Date Time Temp Pulse Resp B/P (MAP) Pulse Ox O2 Delivery O2 Flow Rate FiO2 02/04/18 15:39 37.6 107 20 123/88 (100) 98 Room Air 02/04/18 08:32 36.4 105 16 122/87 (99) 93 Room Air 02/04/18 08:10 Room Air Physical Exam Constitutional: Level of Distress: NAD, chronically ill Psychiatric: Mental Status: active & alert Orientation: oriented except where noted Lungs: Auscuitation: breath sounds normal Cardiovascular: Heart Auscultation: RRR Abdomen: Inspection & Palpation: soft, distended Extremities: no edema Laboratory Last 24 Hours Test 02/04/18 05:48 White Blood Count 19.31 K/uL Red Blood Count 2.50 M/uL Hemoglobin 7.5 g/dL Hematocrit 22.2 % Mean Corpuscular Volume 88.8 fL Mean Corpuscular Hemoglobin 30.0 pg Mean Corpuscular Hemoglobin Concent 33.8 g/dl Platelet Count 330 K/uL Mean Platelet Volume 9.6 fL Neutrophils (%) (Auto) 89.3 % Lymphocytes (%) (Auto) 4.4 % Monocytes (%) (Auto) 2.0 % Eosinophils (%) (Auto) 0.0 % Basophils (%) (Auto) 0.1 % Neutrophils # (Auto) 17.26 K/uL Lymphocytes # (Auto) 0.84 K/uL Monocytes # (Auto) 0.39 K/uL Eosinophils # (Auto) 0.00 K/uL Basophils # (Auto) 0.01 K/uL RDW Standard Deviation 47.3 fL RDW Coefficient of Variation 15.3 % Immature Granulocyte % (Auto) 4.2 % Immature Granulocyte # (Auto) 0.81 K/uL Nucleated RBC Absolute Count (auto) 0.07 K/uL Nucleated Red Blood Cells % 0.3 % Red Blood Cell Morphology Unremarkable Sodium Level 136 mmol/L Potassium Level 3.8 mmol/L Chloride Level 105 mmol/L Carbon Dioxide Level 23 mmol/L Anion Gap 9.0 mmol/L Blood Urea Nitrogen 23 mg/dl Creatinine 2.04 mg/dl Est Creatinine Clear Calc Drug Dose 61.1 ml/min Estimated GFR () 43.7 Estimated GFR (Non- 37.7 BUN/Creatinine Ratio 11.3 Random Glucose 117 mg/dl Calcium Level 5.9 mg/dl Phosphorus Level 4.1 mg/dl Magnesium Level 1.7 mg/dl Total Bilirubin 0.2 mg/dl Aspartate Amino Transf (AST/SGOT) 17 U/L Alanine Aminotransferase (ALT/SGPT) 17 U/L Alkaline Phosphatase 669 U/L Total Protein 4.7 gm/dl Albumin 1.6 gm/dl Globulin 3.1 gm/dl Albumin/Globulin Ratio 0.5 Assessment & Plan Yesterday, we started FOLFIRI on the presumption of a small bowel primary. He did well with treatment overnight. He will continue the continuous infusion 5- FU until he completes 48 hours. His ascites is worsening and I am fine with a paracentesis today. His albumin is very low and he is third-spacing a great deal , which I think is contributing to his dehydration and electrolyte issues. I would also continue with supportive care, including PRN Zofran and Imodium for the diarrhea.
[2018-02-04] MEDS: SODIUM CHLORIDE 0.9% IV SCH (17:05)
[2018-02-04] MEDS: FLUOROURACIL IV SCH (17:05)
[2018-02-04] MEDS: MONTELUKAST SOD 10 MG TAB PO SCH (19:55)
[2018-02-04] MEDS: MIRTAZAPINE TAB 15 MG TAB PO SCH (19:56)
[2018-02-04 20:30] LABS: HEMATOCRIT 26.1 % (42-52); HEMOGLOBIN 8.4 g/dL (14.0-18.0); MEAN CELL VOLUME 89.4 fL (80-100); MEAN CORPUSCULAR HEMOGLOBIN 28.8 pg (25-34); MEAN CORPUSCULAR HGB CONC 32.2 g/dl (32-36); MEAN PLATELET VOLUME 9.5 fL (7.4-10.4); NUCLEATED RED BLOOD CELL ABS 0.06 K/uL (0-0); PLATELET COUNT 400 K/uL (130-400); RED CELL DISTRIBUTION WIDTH CV 15.5 % (11.5-14.5); RED CELL DISTRIBUTION WIDTH SD 47.9 fL (36.4-46.3); WHITE BLOOD COUNT 18.63 K/uL (4.8-10.8)
[2018-02-04 21:22] LABS: ALBUMIN 1.8 gm/dl (3.4-5.0); ALKALINE PHOSPHATASE 699 U/L (45-117); ALT/SGPT 18 U/L (12-78); AST/SGOT 17 U/L (15-37); BLOOD UREA NITROGEN 28 mg/dl (7-18); CALCIUM 5.8 mg/dl (8.5-10.1); CARBON DIOXIDE 20 mmol/L (21-32); CREATININE 2.12 mg/dl (0.60-1.40); GLUCOSE 194 mg/dl (70-99); PHOSPHORUS 3.3 mg/dl (2.5-4.9); POTASSIUM 3.6 mmol/L (3.5-5.1); SODIUM 136 mmol/L (136-145); TOTAL PROTEIN 5.2 gm/dl (6.4-8.2)
[2018-02-04] MEDS: LORAZEPAM 2 MG/ML 1 ML VIAL IV PRN (21:49)
[2018-02-04] MEDS: ENOXAPARIN 40 MG/0.4 ML SYR SQ SCH (21:51)
[2018-02-04] MEDS: MAGNESIUM SULFATE 1GM / D5W 100 ML IV SCH ×2 (22:39→23:25)
[2018-02-05] MEDS: LORAZEPAM 0.5 MG TAB PO PRN ×3 (02:16→13:54)
[2018-02-05] MEDS: ONDANSETRON INJ 2 MG/ML 2 ML VIAL IV PRN ×4 (02:16→20:11)
[2018-02-05] MEDS: LOPERAMIDE HCL 2 MG CAP PO PRN ×4 (02:16→20:07)
[2018-02-05 02:37] VITALS: BP 130/88; PULSE 100; TEMP 36.7; O2SAT 97
[2018-02-05 05:53] LABS: BASO % 0.1 %; BASO ABS # 0.01 K/uL (0-0.2); HEMATOCRIT 23.4 % (42-52); HEMOGLOBIN 7.6 g/dL (14.0-18.0); IG# 0.15 K/uL (0.00-0.02); LYMPH % 4.4 %; LYMPH ABS # 0.75 K/uL (1.2-3.4); MEAN CORPUSCULAR HEMOGLOBIN 28.9 pg (25-34); MEAN CORPUSCULAR HGB CONC 32.5 g/dl (32-36); MEAN PLATELET VOLUME 9.2 fL (7.4-10.4); MONO % 2.8 %; MONO ABS # 0.48 K/uL (0.11-0.59); NEUT % 91.8 %; NEUT ABS # 15.68 K/uL (1.4-6.5); NUCLEATED RED BLOOD CELL ABS 0.04 K/uL (0-0); PLATELET COUNT 345 K/uL (130-400); RED CELL DISTRIBUTION WIDTH CV 15.6 % (11.5-14.5); RED CELL DISTRIBUTION WIDTH SD 46.9 fL (36.4-46.3); WHITE BLOOD COUNT 17.07 K/uL (4.8-10.8)
[2018-02-05 06:38] LABS: ALBUMIN 1.6 gm/dl (3.4-5.0); CALCIUM 5.7 mg/dl (8.5-10.1); CREATININE 1.94 mg/dl (0.60-1.40); PHOSPHORUS 3.5 mg/dl (2.5-4.9); POTASSIUM 3.8 mmol/L (3.5-5.1); TOTAL PROTEIN 4.6 gm/dl (6.4-8.2)
[2018-02-05 08:00] VITALS: O2SAT 97
[2018-02-05] MEDS: BOOST BREEZE NUTRITION DRINK 1 BOX PO SCH ×2 (08:12→18:02)
[2018-02-05] MEDS: LORATADINE 10 MG TAB PO SCH (08:13)
[2018-02-05] MEDS: CALCIUM CARBONATE 1250MG TAB PO SCH ×2 (08:13→20:08)
[2018-02-05] MEDS: DEXAMETHASONE 4 MG TAB PO SCH ×2 (08:13→20:10)
[2018-02-05] MEDS: PANTOprazole SOD 40 MG TAB PO SCH (08:13)
[2018-02-05] MEDS: ATORVASTATIN 10 MG TAB PO SCH (08:14)
[2018-02-05] MEDS: POTASSIUM CHLORIDE 20 MEQ TABCR PO SCH (08:14)
[2018-02-05] MEDS ORDERED: CALCIUM GLUCONATE 10% 1,000 MG in SODIUM CHLORIDE 0.9% 50ML 50 ML IV STA (08:56)
[2018-02-05] MEDS ORDERED: MAGNESIUM SULFATE 1GM / D5W 100 ML IV STA (08:56)
[2018-02-05 11:21] VITALS: BP 113/75; PULSE 100; TEMP 36.9; O2SAT 94
--- NOTE | 2018-02-05 11:27 | HEME/ONC PROGRESS NOTE ---
DATE: 02/05/2018 HEMATOLOGY/ONCOLOGY PROGRESS NOTE SUBJECTIVE: Ashok is a very pleasant but unfortunate 48-year-old gentleman with metastatic colorectal cancer, currently completing his first round of FOLFIRI. Apparently Ashok's ascites has been refractory thus far. He inquired about outpatient palliative paracenteses which I advised and would be arranged by Dr. Carson. Overall, he seems to be doing reasonably well. He is tolerating his diet. There has been minimal nausea and nursing has reported no overnight issues. PHYSICAL EXAMINATION: GENERAL: A 48-year-old gentleman in no acute distress. VITAL SIGNS: Temperature 36.7, pulse 100, respiratory rate 20, blood pressure 130/88. SKIN: Without rash or lesion. HEENT: Oral mucosa without erythema or ulceration. NECK: Supple without JVD or thyromegaly. LYMPH: No cervical, supraclavicular or axillary palpable nodes. HEART: Regular rate and rhythm. No clicks, rubs, murmurs, gallops. ABDOMEN: Distended, otherwise soft, nontender, no rigidity or guarding. EXTREMITIES: No clubbing, cyanosis or edema. NEUROLOGIC: Grossly intact. LABORATORY DATA: WBC count 17,070, hemoglobin 7.6, platelet count 345,000. Sodium 136, potassium 3.8, chloride 105, carbon dioxide 22, creatinine 1.94, BUN 28, calcium 5.7, albumin 1.6, alkaline phosphatase 657. IMPRESSION: 1. Metastatic colorectal cancer. 2. Hypokalemia. 3. Hypomagnesemia. 4. Acute renal injury. 5. Anxiety/insomnia. PLAN: Ashok will be completing his first round of FOLFIRI combination chemotherapy and hopefully be ready for discharge within the next [address] Carson will make arrangements for outpatient followup and to continue chemotherapy as outpatient. Continue to replace electrolytes. Encourage protein intake. It is my hope that his chemotherapy is effective and the accumulation of ascites should slow down. There is nothing further to add today. Dr. Carson will be back rounding tomorrow and will make disposition for Ashok upon discharge. Thank you for assisting us in the care of this very pleasant gentleman. If you have any questions or concerns, feel free to contact me at any time. CHARLIE
--- NOTE | 2018-02-05 13:55 | Nephrology Progress Note ---
Nephrology Progress Note Date of Service Feb 05, 2018. Chief Complaint Renal insufficiency, multiple electrolyte abnormalities Subjective No acute events overnight. Paracentesis performed for approximately 7 liters yesterday. Ashok notes that fluid is reaccumulating rapidly. Dyspnea improved. Appetite fair. No fevers or chills. Denies abdominal pain. Despondent. Review of Systems A complete review of systems was performed. Pertinent positives are noted above. All other systems are negative. Vital Signs Last 8 Hrs Date Time Temp Pulse Resp B/P (MAP) Pulse Ox O2 Delivery O2 Flow Rate FiO2 02/05/18 11:21 36.9 100 20 113/75 (88) 94 02/05/18 08:00 97 Room Air Last Recorded Weight Weight (Kilograms): 106.300 Physical Exam General Appearance: no apparent distress, + pertinent finding Head: normocephalic, atraumatic Eyes: normal inspection, sclerae normal ENT: normal ENT inspection, pharynx normal Neck: supple, no JVD Respiratory/Chest: lungs clear, no respiratory distress, no accessory muscle use Cardiovascular: regular rate, rhythm, no gallop Abdomen/GI: non tender, soft, + distended Extremities/Musculoskelatal: + pedal edema, + swelling Neurologic/Psych: alert, normal mood/affect Family History Stroke Social History Drug Use: none Marital Status: Housing Status: lives with family Occupation: disabled Laboratory Results Past 24 Hours 02/04/18 20:11 02/05/18 05:41 Red Blood Count 2.63, Mean Corpuscular Volume 89.0, Mean Corpuscular Hemoglobin 28.9, Mean Corpuscular Hemoglobin Concent 32.5, Mean Platelet Volume 9.2, Neutrophils (%) (Auto) 91.8, Lymphocytes (%) (Auto) 4.4, Monocytes (%) (Auto) 2.8, Eosinophils (%) (Auto) 0.0, Basophils (%) (Auto) 0.1, Neutrophils # (Auto) 15.68, Lymphocytes # (Auto) 0.75, Monocytes # (Auto) 0.48, Eosinophils # (Auto) 0.00, Basophils # (Auto) 0.01 02/04/18 20:11 02/05/18 05:41 Test 02/04/18 20:11 02/05/18 05:41 Red Blood Count 2.92 M/uL (4.7-6.1) 2.63 M/uL (4.7-6.1) Mean Corpuscular Volume 89.4 fL (80-100) 89.0 fL (80-100) Mean Corpuscular Hemoglobin 28.8 pg (25-34) 28.9 pg (25-34) Mean Corpuscular Hemoglobin Concent 32.2 g/dl (32-36) 32.5 g/dl (32-36) RDW Standard Deviation 47.9 fL (36.4-46.3) 46.9 fL (36.4-46.3) RDW Coefficient of Variation 15.5 % (11.5-14.5) 15.6 % (11.5-14.5) Mean Platelet Volume 9.5 fL (7.4-10.4) 9.2 fL (7.4-10.4) Nucleated RBC Absolute Count (auto) 0.06 K/uL (0-0) 0.04 K/uL (0-0) Nucleated Red Blood Cells % 0.3 % 0.2 % Anion Gap 11.0 mmol/L (3-11) 9.0 mmol/L (3-11) Est Creatinine Clear Calc Drug Dose 58.8 ml/min 63.0 ml/min Estimated GFR () 41.7 46.4 Estimated GFR (Non- 36.0 40.0 BUN/Creatinine Ratio 13.0 (10-20) 14.5 (10-20) Calcium Level 5.8 mg/dl (8.5-10.1) 5.7 mg/dl (8.5-10.1) Phosphorus Level 3.3 mg/dl (2.5-4.9) 3.5 mg/dl (2.5-4.9) Magnesium Level 1.5 mg/dl (1.8-2.4) 1.8 mg/dl (1.8-2.4) Total Bilirubin < 0.1 mg/dl (0.2-1) 0.3 mg/dl (0.2-1) Aspartate Amino Transf (AST/SGOT) 17 U/L (15-37) 14 U/L (15-37) Alanine Aminotransferase (ALT/SGPT) 18 U/L (12-78) 17 U/L (12-78) Alkaline Phosphatase 699 U/L (45-117) 657 U/L (45-117) Total Protein 5.2 gm/dl (6.4-8.2) 4.6 gm/dl (6.4-8.2) Albumin 1.8 gm/dl (3.4-5.0) 1.6 gm/dl (3.4-5.0) Globulin 3.4 gm/dl (2.5-4.0) 3.0 gm/dl (2.5-4.0) Albumin/Globulin Ratio 0.5 (0.9-2) 0.5 (0.9-2) White Blood Count 17.07 K/uL (4.8-10.8) Hemoglobin 7.6 g/dL (14.0-18.0) Hematocrit 23.4 % (42-52) Platelet Count 345 K/uL (130-400) Neutrophils (%) (Auto) 91.8 % Lymphocytes (%) (Auto) 4.4 % Monocytes (%) (Auto) 2.8 % Eosinophils (%) (Auto) 0.0 % Basophils (%) (Auto) 0.1 % Neutrophils # (Auto) 15.68 K/uL (1.4-6.5) Lymphocytes # (Auto) 0.75 K/uL (1.2-3.4) Monocytes # (Auto) 0.48 K/uL (0.11-0.59) Eosinophils # (Auto) 0.00 K/uL (0-0.5) Basophils # (Auto) 0.01 K/uL (0-0.2) Immature Granulocyte % (Auto) 0.9 % Immature Granulocyte # (Auto) 0.15 K/uL (0.00-0.02) Red Blood Cell Morphology Unremarkable Allergies Coded Allergies: Sulfa Antibiotics (Verified Allergy, Intermediate, RASH, 02/01/18) Medications Current Inpatient Medications Medications (Trade) Dose Ordered Sig/Suraj Route Start Time Stop Time Status Last Admin Dose Admin Enoxaparin Sodium (Lovenox Inj) 40 mg Q24H SQ 02/01/18 21:00 03/03/18 20:59 02/04/18 21:51 40 MG Ondansetron HCl (Zofran Inj) 4 mg Q6H PRN IV 02/01/18 18:15 03/03/18 18:14 02/05/18 08:10 4 MG Atorvastatin Calcium (Lipitor Tab) 10 mg DAILY PO 02/02/18 08:00 03/04/18 08:59 02/05/18 08:14 10 MG Dexamethasone (Decadron Tab) 2 mg BID PO 02/01/18 21:00 03/03/18 20:59 02/05/18 08:13 2 MG Loratadine (Claritin Tab) 10 mg DAILY PO 02/02/18 08:00 03/04/18 08:59 02/05/18 08:13 10 MG Montelukast Sodium (Singulair Tab) 10 mg HS PO 02/01/18 21:00 03/03/18 20:59 02/04/18 19:55 10 MG Pantoprazole Sodium (Protonix Tab) 40 mg DAILY PO 02/02/18 08:00 03/04/18 08:59 02/05/18 08:13 40 MG Mirtazapine (Remeron Tab) 30 mg HS PO 02/02/18 21:00 03/04/18 20:59 02/04/18 19:56 30 MG Ceftriaxone Sodium 2 gm/ Dextrose 50 ml @ 100 mls/hr DAILY@1400 IV 02/02/18 14:00 02/12/18 13:59 02/04/18 13:57 100 MLS/HR Lorazepam (Ativan Tab) 0.5 mg Q6 PRN PO 02/02/18 20:00 03/04/18 19:59 02/05/18 08:10 0.5 MG Potassium Chloride (Klor-Con Tab) 40 meq QAM PO 02/04/18 08:00 03/04/18 08:59 02/05/18 08:14 40 MEQ Ergocalciferol (Vitamin D Cap) 50,000 interunit Th@0900 PO 02/03/18 12:00 03/05/18 11:59 02/03/18 11:23 50,000 INTERUNIT Calcium Carbonate (oS-Oli 500 TAB) 1,250 mg BID PO 02/03/18 20:00 03/05/18 19:59 02/05/18 08:13 1,250 MG Loperamide HCl (Imodium Cap) 2 mg Q4H PRN PO 02/03/18 08:45 03/05/18 08:44 02/05/18 08:10 2 MG Enteral Nutritional Formula (Boost Breeze Nutritional Drink) 1 box BID PO 02/03/18 20:00 03/05/18 19:59 02/05/18 08:12 1 BOX Heparin Sodium (Porcine) (Heparin 10 Unit/ ml 5 ml Flush) 5 ml PRN PRN FLUSH 02/03/18 12:30 03/05/18 12:29 02/05/18 05:43 5 ML Diphenhydramine HCl (Benadryl Inj) 50 mg UD PRN IV 02/03/18 13:00 02/06/18 12:59 Hydrocortisone Sodium Succinate 100 mg/Syringe 2 ml @ 4 mls/min UD PRN IV 02/03/18 13:00 02/06/18 12:59 Methylprednisolone Sodium Succinate 125 mg/Syringe 2 ml @ 1.5 mls/min UD PRN IV 02/03/18 13:15 02/06/18 13:14 Fluorouracil 2950 mg/Sodium Chloride 1,059 ml @ 46 mls/hr Q23H IV 02/03/18 16:20 02/05/18 14:19 02/04/18 17:05 46 MLS/HR Lorazepam (Ativan Inj) 0.5 mg QPM PRN IV 02/03/18 21:00 02/11/18 00:00 02/04/18 21:49 0.5 MG Lorazepam 0.5 mg/ Syringe 1 ml @ 1 mls/min PM PRN IV 02/03/18 19:00 03/05/18 18:59 02/03/18 20:59 1 MLS/MIN Impression (1) Hypokalemia (2) Hypocalcemia (3) Acute kidney injury (4) Hypomagnesemia Mr. Juárez is a 47-year-old male with CKD and advanced metastatic adenocarcinoma. He is notably hypoalbuminemic with recurrent malignant ascites and pleural effusions. Complicating CKD are multiple episodes of BRYNN. This is at least partially related to prior treatment with cisplatin. Creatinine currently remains stable at 2.0 mg/dL. BP and volume status are reasonable. 25OH vitamin D deficiency noted with hypocalcemia. Hypomagnesemia and hypokalemia being replaced. Recommendations -- Ergocalciferol 26837 IU weekly -- Additional 1 gm calcium gluconate and MgSO4 2 gm provided today -- Calcium carbonate 2,500 mg twice daily (not to be given with food) -- KCl 40 mEq daily -- Monitor metabolic profile with magnesium and phosphorus daily while inpatient -- Document I/O's -- Nutrition consult appreciated -- Therapeutic paracentesis PRN -- Albumin to be given with each paracentesis -- Plan of care discussed with Dr. Bojorquez this morning
[2018-02-05] MEDS: CEFTRIAXONE SOD INJ 2000 MG in DEXTROSE 5% 50ML IV SCH (14:47)
[2018-02-05 15:02] VITALS: BP 119/90; PULSE 110; TEMP 36.7; O2SAT 94
--- NOTE | 2018-02-05 18:59 | Progress Note ---
Subjective Date of Service: Feb 05, 2018. Subjective Pt evaluation today including: conversation w/ patient, conversation w/ family , physical exam, chart review, lab review, review of studies, conversation w/ [employer] consultant, review of inpatient medication list Pain: Denies pain; does note abdominal distention PO Intake: Fair Voiding: no voiding problems Mr. Juárez is seen this afternoon with his at bedside. He had visitors for most of the morning and reports feeling relatively well. He was able to walk in the hallway this morning as well. He describes "hitting the wall" sometime around lunch. Since that time he reports not feeling quite as well; I asked him to be more specific, he reports increased abdominal distention/bloating and fatigue. Problem List Medical Problems: (1) Abdominal distension Status: Acute (2) Anemia Status: Acute (3) Ascites Status: Acute (4) Ascites Status: Acute (5) Bilateral pleural effusion Status: Acute (6) Cholangitis Status: Acute (7) Dehydration Status: Acute (8) Hypoxia Status: Acute (9) Metastatic cancer Status: Acute (10) Nausea & vomiting Status: Acute (11) Neutropenia Status: Acute (12) Respiratory distress Status: Acute (13) Tachycardia Status: Acute (14) Thrombopenia Status: Acute Review of Systems Constitutional: No fever, No chills Eyes: No diplopia ENT: No trouble swallowing Respiratory: No cough Cardiac: No chest pain Abdomen: + problem reported (Distention secondary to ascites), No pain, No nausea Neurologic: No balance problems Psychiatric: + depression symptoms, + anxiety Medications Reported Home Medications Medications Dose Route/Sig Max Daily Dose Days Date Category Cipro (Ciprofloxacin Hcl) 500 Mg Tab 500 Mg PO BID 01/31/18 Reported Reglan (Metoclopramide HCl) 10 Mg Tab 10 Mg PO ACHS 01/31/18 Reported Imodium (Loperamide Hcl) 2 Mg Cap 2 Mg PO QID 01/31/18 Reported Plavix (Clopidogrel Bisulfate) 75 Mg Tab 75 Mg PO DAILY 01/31/18 Reported Decadron (Dexamethasone) 4 Mg Tab 2 Mg PO BID 01/31/18 Reported Lipitor (Atorvastatin Calcium) 10 Mg Tab 10 Mg PO DAILY 01/31/18 Reported Protonix (Pantoprazole Sodium) 40 Mg Tab 40 Mg PO DAILY 01/31/18 Reported Mirtazapine 15 Mg Tab 15 Mg PO HS 01/19/18 Reported Claritin (Loratadine) 10 Mg Tab 10 Mg PO DAILY 10/18/17 Reported Singulair (Montelukast Sodium) 10 Mg Tab 10 Mg PO DAILY 10/18/17 Reported Objective Vital Signs Date Time Temp Pulse Resp B/P (MAP) Pulse Ox O2 Delivery O2 Flow Rate FiO2 02/05/18 15:02 36.7 110 18 119/90 (100) 94 02/05/18 11:21 36.9 100 20 113/75 (88) 94 02/05/18 08:00 97 Room Air 02/05/18 02:37 36.7 100 20 130/88 (102) 97 Room Air 02/05/18 00:30 Room Air 02/04/18 23:44 36.6 106 20 155/79 (104) 94 Room Air 02/04/18 20:00 Room Air 02/04/18 19:36 36.5 104 20 125/72 (89) 94 Room Air Physical Exam General Appearance: WD/WN, no apparent distress Eyes: normal inspection, sclerae normal ENT: normal ENT inspection, hearing grossly normal Neck: supple Respiratory/Chest: chest non-tender, lungs clear Cardiovascular: regular rate, rhythm Abdomen: normal bowel sounds, + distended Extremities: normal range of motion, non-tender, + pedal edema (Trace bilateral lower extremity edema, more pronounced at the ankles) Laboratory Results Last 24 Hours Test 02/04/18 20:11 02/05/18 05:41 White Blood Count 18.63 K/uL 17.07 K/uL Red Blood Count 2.92 M/uL 2.63 M/uL Hemoglobin 8.4 g/dL 7.6 g/dL Hematocrit 26.1 % 23.4 % Mean Corpuscular Volume 89.4 fL 89.0 fL Mean Corpuscular Hemoglobin 28.8 pg 28.9 pg Mean Corpuscular Hemoglobin Concent 32.2 g/dl 32.5 g/dl RDW Standard Deviation 47.9 fL 46.9 fL RDW Coefficient of Variation 15.5 % 15.6 % Platelet Count 400 K/uL 345 K/uL Mean Platelet Volume 9.5 fL 9.2 fL Nucleated RBC Absolute Count (auto) 0.06 K/uL 0.04 K/uL Nucleated Red Blood Cells % 0.3 % 0.2 % Sodium Level 136 mmol/L 136 mmol/L Potassium Level 3.6 mmol/L 3.8 mmol/L Chloride Level 105 mmol/L 105 mmol/L Carbon Dioxide Level 20 mmol/L 22 mmol/L Anion Gap 11.0 mmol/L 9.0 mmol/L Blood Urea Nitrogen 28 mg/dl 28 mg/dl Creatinine 2.12 mg/dl 1.94 mg/dl Est Creatinine Clear Calc Drug Dose 58.8 ml/min 63.0 ml/min Estimated GFR () 41.7 46.4 Estimated GFR (Non- 36.0 40.0 BUN/Creatinine Ratio 13.0 14.5 Random Glucose 194 mg/dl 116 mg/dl Calcium Level 5.8 mg/dl 5.7 mg/dl Phosphorus Level 3.3 mg/dl 3.5 mg/dl Magnesium Level 1.5 mg/dl 1.8 mg/dl Total Bilirubin < 0.1 mg/dl 0.3 mg/dl Aspartate Amino Transf (AST/SGOT) 17 U/L 14 U/L Alanine Aminotransferase (ALT/SGPT) 18 U/L 17 U/L Alkaline Phosphatase 699 U/L 657 U/L Total Protein 5.2 gm/dl 4.6 gm/dl Albumin 1.8 gm/dl 1.6 gm/dl Globulin 3.4 gm/dl 3.0 gm/dl Albumin/Globulin Ratio 0.5 0.5 Neutrophils (%) (Auto) 91.8 % Lymphocytes (%) (Auto) 4.4 % Monocytes (%) (Auto) 2.8 % Eosinophils (%) (Auto) 0.0 % Basophils (%) (Auto) 0.1 % Neutrophils # (Auto) 15.68 K/uL Lymphocytes # (Auto) 0.75 K/uL Monocytes # (Auto) 0.48 K/uL Eosinophils # (Auto) 0.00 K/uL Basophils # (Auto) 0.01 K/uL Immature Granulocyte % (Auto) 0.9 % Immature Granulocyte # (Auto) 0.15 K/uL Red Blood Cell Morphology Unremarkable Assessment and Plan Metastatic adenocarcinoma, 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 His biggest concern is the quick reaccumulation of ascites; we again discussed how this can be a negative prognostic factor He may benefit from a palliative paracentesis tomorrow; will treat him with IV albumin post-paracentesis in hopes that we can delay the reaccumulation. Anemia Continue to monitor; I suspect it may drop further secondary to chemotherapy There may be a palliative benefit to RBC transfusion; will discuss with oncology Acute on chronic BRYNN in the setting of ATN Hypokalemia Hypomagnesemia Hypocalcemia Replete with help of nephrology Depression with suicidal ideation Anxiety/insomnia Not actively suicidal Psychiatric input appreciated Ativan as needed Hyperlipidemia Remains on a statin though I would have a low threshold for discontinuation Continued [facility] stay due to: multiple IV medications needed Discharge planning: home
[2018-02-05] MEDS: MIRTAZAPINE TAB 15 MG TAB PO SCH (20:09)
[2018-02-05] MEDS: MONTELUKAST SOD 10 MG TAB PO SCH (20:09)
[2018-02-05] MEDS: LORAZEPAM 2 MG/ML 1 ML VIAL IV PRN (20:20)
[2018-02-05] MEDS: ENOXAPARIN 40 MG/0.4 ML SYR SQ SCH (20:23)
[2018-02-05 21:02] VITALS: BP 105/71; PULSE 100; TEMP 36.7; O2SAT 95
[2018-02-05 23:50] VITALS: BP 107/75; PULSE 97; TEMP 36.6; O2SAT 97
[2018-02-06] VITALS (9 sets, daily range): BP systolic 115–153; BP diastolic 67–96; PULSE 104–115; TEMP 36.2–37.1; O2SAT 92–97
[2018-02-06] MEDS: LORAZEPAM 0.5 MG TAB PO PRN ×3 (02:57→17:45)
[2018-02-06] MEDS: ONDANSETRON INJ 2 MG/ML 2 ML VIAL IV PRN ×3 (02:57→21:10)
[2018-02-06 06:10] LABS: HEMATOCRIT 24.6 % (42-52); IG# 0.05 K/uL (0.00-0.02); LYMPH % 1.6 %; LYMPH ABS # 0.24 K/uL (1.2-3.4); MEAN CELL VOLUME 89.8 fL (80-100); MEAN CORPUSCULAR HEMOGLOBIN 29.2 pg (25-34); MEAN CORPUSCULAR HGB CONC 32.5 g/dl (32-36); MEAN PLATELET VOLUME 9.3 fL (7.4-10.4); MONO % 2.9 %; MONO ABS # 0.44 K/uL (0.11-0.59); NEUT % 95.2 %; NEUT ABS # 14.51 K/uL (1.4-6.5); NUCLEATED RED BLOOD CELL ABS 0.02 K/uL (0-0); PLATELET COUNT 402 K/uL (130-400); RED CELL DISTRIBUTION WIDTH CV 15.4 % (11.5-14.5); RED CELL DISTRIBUTION WIDTH SD 48.2 fL (36.4-46.3); WHITE BLOOD COUNT 15.24 K/uL (4.8-10.8)
[2018-02-06 06:41] LABS: ALBUMIN 1.6 gm/dl (3.4-5.0); CALCIUM 6.3 mg/dl (8.5-10.1); CREATININE 1.72 mg/dl (0.60-1.40); PHOSPHORUS 3.6 mg/dl (2.5-4.9); POTASSIUM 4.1 mmol/L (3.5-5.1); TOTAL PROTEIN 4.5 gm/dl (6.4-8.2)
[2018-02-06] MEDS: CALCIUM CARBONATE 1250MG TAB PO SCH ×2 (08:08→21:04)
[2018-02-06] MEDS: DEXAMETHASONE 4 MG TAB PO SCH ×2 (08:08→21:04)
[2018-02-06] MEDS: LORATADINE 10 MG TAB PO SCH (08:09)
[2018-02-06] MEDS: PANTOprazole SOD 40 MG TAB PO SCH (08:10)
[2018-02-06] MEDS: POTASSIUM CHLORIDE 20 MEQ TABCR PO SCH (08:10)
[2018-02-06] MEDS: ATORVASTATIN 10 MG TAB PO SCH (08:11)
[2018-02-06] MEDS: BOOST BREEZE NUTRITION DRINK 1 BOX PO SCH ×2 (08:27→20:00)
--- NOTE | 2018-02-06 10:25 | Hematology/Oncology Prog Note ---
Hematology/Onc Progress Note Date of Service Feb 06, 2018. Diagnoses Metastatic adenocarcinoma, possibly of a small bowel primary Refractory ascites Medications Medications Administered Medications (Trade) Dose Ordered Sig/Suraj Route Start Time Stop Time Status Last Admin Dose Admin Sodium Chloride 500 ml @ 999 mls/hr Q31M STAT IV 02/01/18 12:33 02/01/18 13:03 DC 02/01/18 14:00 999 MLS/HR Vancomycin HCl 1000 mg/Sodium Chloride 270 ml @ 125 mls/hr NOW STAT IV 02/01/18 14:53 02/01/18 17:02 DC 02/01/18 15:58 125 MLS/HR Piperacillin Sod/ Tazobactam Sod 3.375 gm/Dextrose 115 ml @ 230 mls/hr NOW ONCE IV 02/01/18 15:15 02/01/18 15:44 DC 02/01/18 15:29 230 MLS/HR Potassium Chloride 100 ml @ 100 mls/hr NOW STAT IV 02/01/18 15:41 02/01/18 16:40 DC 02/01/18 15:59 100 MLS/HR Magnesium Sulfate 100 ml @ 100 mls/hr NOW STAT IV 02/01/18 15:41 02/01/18 16:40 DC 02/01/18 15:59 100 MLS/HR Enoxaparin Sodium (Lovenox Inj) 40 mg Q24H SQ 02/01/18 21:00 03/03/18 20:59 02/04/18 21:51 40 MG Zolpidem Tartrate (Ambien Tab) 2.5 mg HSZ PRN PO 02/01/18 18:15 02/02/18 20:06 DC 02/01/18 23:43 2.5 MG Ondansetron HCl (Zofran Inj) 4 mg Q6H PRN IV 02/01/18 18:15 03/03/18 18:14 02/06/18 02:57 4 MG Magnesium Sulfate 100 ml @ 100 mls/hr Q1H IV 02/01/18 22:00 02/01/18 23:59 DC 02/01/18 23:48 100 MLS/HR Calcium Gluconate 2000 mg/Sodium Chloride 70 ml @ 240 mls/hr NOW ONCE IV 02/01/18 21:30 02/01/18 21:47 DC 02/01/18 22:09 240 MLS/HR Potassium Chloride (Klor-Con Tab) 20 meq TODAY@2100 ONCE PO 02/01/18 21:00 02/01/18 21:03 DC 02/01/18 21:14 20 MEQ Potassium Chloride (Klor-Con Tab) 20 meq QAM PO 02/02/18 08:00 02/03/18 08:31 DC 02/03/18 08:05 20 MEQ Atorvastatin Calcium (Lipitor Tab) 10 mg DAILY PO 02/02/18 08:00 03/04/18 08:59 02/06/18 08:11 10 MG Dexamethasone (Decadron Tab) 2 mg BID PO 02/01/18 21:00 03/03/18 20:59 02/06/18 08:08 2 MG Loratadine (Claritin Tab) 10 mg DAILY PO 02/02/18 08:00 03/04/18 08:59 02/06/18 08:09 10 MG Mirtazapine (Remeron Solutab) 15 mg HS PO 02/01/18 21:00 02/02/18 12:00 DC 02/01/18 21:14 15 MG Montelukast Sodium (Singulair Tab) 10 mg HS PO 02/01/18 21:00 03/03/18 20:59 02/05/18 20:09 10 MG Pantoprazole Sodium (Protonix Tab) 40 mg DAILY PO 02/02/18 08:00 03/04/18 08:59 02/06/18 08:10 40 MG Vancomycin HCl 1000 mg/Sodium Chloride 270 ml @ 125 mls/hr ONE ONCE IV 02/01/18 21:30 02/01/18 23:39 DC 02/01/18 22:09 125 MLS/HR Piperacillin Sod/ Tazobactam Sod 3.375 gm/Dextrose 115 ml @ 28.75 mls/ hr Q8H IV 02/01/18 22:00 02/02/18 13:13 DC 02/02/18 05:34 28.75 MLS/HR Vancomycin HCl 1500 mg/Sodium Chloride 530 ml @ 200 mls/hr Q14H IV 02/02/18 10:00 02/02/18 13:14 DC 02/02/18 09:54 200 MLS/HR Potassium Chloride (Klor-Con M10) 10 meq NOW STAT PO 02/02/18 08:48 02/02/18 08:49 DC 02/02/18 09:04 10 MEQ Calcium Gluconate 1000 mg/Sodium Chloride 60 ml @ 240 mls/hr NOW STAT IV 02/02/18 08:48 02/02/18 09:04 DC 02/02/18 09:04 240 MLS/HR Mirtazapine (Remeron Tab) 30 mg HS PO 02/02/18 21:00 03/04/18 20:59 02/05/18 20:09 30 MG Ceftriaxone Sodium 2 gm/ Dextrose 50 ml @ 100 mls/hr DAILY@1400 IV 02/02/18 14:00 02/12/18 13:59 02/05/18 14:47 100 MLS/HR Lorazepam (Ativan Tab) 0.5 mg Q6 PRN PO 02/02/18 20:00 03/04/18 19:59 02/06/18 02:57 0.5 MG Lorazepam 0.5 mg/ Syringe 1 ml @ 1 mls/min NOW ONCE IV 02/02/18 20:30 02/02/18 20:31 DC 02/02/18 20:34 1 MLS/MIN Magnesium Sulfate 100 ml @ 100 mls/hr Q1H IV 02/03/18 09:00 02/03/18 10:59 DC 02/03/18 10:12 100 MLS/HR Potassium Chloride (Klor-Con Tab) 40 meq QAM PO 02/04/18 08:00 03/04/18 08:59 02/06/18 08:10 40 MEQ Potassium Chloride (Klor-Con Tab) 20 meq NOW STAT PO 02/03/18 08:31 02/03/18 08:38 DC 02/03/18 09:17 20 MEQ Ergocalciferol (Vitamin D Cap) 50,000 interunit Th@0900 PO 02/03/18 12:00 03/05/18 11:59 02/03/18 11:23 50,000 INTERUNIT Calcium Carbonate (oS-Oli 500 TAB) 1,250 mg BID PO 02/03/18 20:00 02/06/18 09:27 DC 02/06/18 08:08 1,250 MG Calcium Carbonate (oS-Oli 500 TAB) 1,250 mg TODAY@1000 ONCE PO 02/03/18 10:00 02/03/18 10:02 DC 02/03/18 11:23 1,250 MG Loperamide HCl (Imodium Cap) 2 mg Q4H PRN PO 02/03/18 08:45 03/05/18 08:44 02/05/18 20:07 2 MG Enteral Nutritional Formula (Boost Breeze Nutritional Drink) 1 box BID PO 02/03/18 20:00 03/05/18 19:59 02/06/18 08:27 1 BOX Heparin Sodium (Porcine) (Heparin 10 Unit/ ml 5 ml Flush) 5 ml PRN PRN FLUSH 02/03/18 12:30 03/05/18 12:29 02/06/18 05:12 5 ML Ondansetron HCl 16 mg/ Dexamethasone Sodium Phosphate 10 mg/Dextrose 60.5 ml @ 180 mls/hr TODAY@1330 ONCE IV 02/03/18 13:30 02/03/18 13:50 DC 02/03/18 13:40 180 MLS/HR Leucovorin Calcium 984 mg/ Dextrose 149.2 ml @ 100 mls/hr TODAY@1415 IV 02/03/18 14:15 02/03/18 23:59 DC 02/03/18 14:53 100 MLS/HR Irinotecan HCl 400 mg/Irinotecan HCl 40 mg/Dextrose 572 ml @ 380 mls/hr TODAY@1415 IV 02/03/18 14:15 02/03/18 23:59 DC 02/03/18 14:54 380 MLS/HR Fluorouracil 980 mg/Syringe 19.6 ml @ 6 mls/min TODAY@1600 IV 02/03/18 16:00 02/03/18 23:59 DC 02/03/18 16:54 6 MLS/MIN Fosaprepitant 150 mg/Sodium Chloride 150 ml @ 300 mls/hr TODAY@1330 IV 02/03/18 13:30 02/03/18 20:00 DC 02/03/18 13:40 300 MLS/HR Fluorouracil 2950 mg/Sodium Chloride 1,059 ml @ 46 mls/hr Q23H IV 02/03/18 16:20 02/05/18 14:19 DC 02/04/18 17:05 46 MLS/HR Lorazepam (Ativan Inj) 0.5 mg QPM PRN IV 02/03/18 21:00 02/11/18 00:00 02/05/18 20:20 0.5 MG Lorazepam 0.5 mg/ Syringe 1 ml @ 1 mls/min PM PRN IV 02/03/18 19:00 03/05/18 18:59 02/03/18 20:59 1 MLS/MIN Magnesium Sulfate 100 ml @ 100 mls/hr Q1H IV 02/04/18 22:15 02/05/18 00:14 DC 02/04/18 23:25 100 MLS/HR Magnesium Sulfate 100 ml @ 100 mls/hr NOW STAT IV 02/05/18 08:56 02/05/18 09:55 DC 02/05/18 10:03 100 MLS/HR Calcium Gluconate 1000 mg/Sodium Chloride 60 ml @ 240 mls/hr NOW STAT IV 02/05/18 08:56 02/05/18 09:10 DC 02/05/18 10:03 240 MLS/HR Subjective Mr. Juárez finished chemotherapy yesterday. He is doing generally well but continues to have reaccumulation of his ascites. He is not quite to where he was on , when he had the paracentesis, but he is definitely worsening. Review of Systems: Constitutional: + weakness, + fatigue Respiratory: No cough, No shortness of breath Cardiovascular: No chest pain Abdomen: + nausea, No pain, No vomiting Heme: No abnormal bleeding/bruising, No swollen lymph nodes Vital Signs Vital Signs Past 12 Hours Date Time Temp Pulse Resp B/P (MAP) Pulse Ox O2 Delivery O2 Flow Rate FiO2 02/06/18 08:00 97 Room Air 02/06/18 07:32 36.8 104 20 115/67 (83) 95 Room Air 02/06/18 05:20 36.6 106 20 132/76 (94) 95 Room Air 02/05/18 23:50 36.6 97 18 107/75 (86) 97 Room Air Physical Exam Constitutional: Level of Distress: NAD, chronically ill Psychiatric: Mental Status: active & alert Orientation: oriented except where noted Lungs: Auscuitation: breath sounds normal Cardiovascular: Heart Auscultation: RRR Abdomen: Inspection & Palpation: soft, distended Extremities: no edema Laboratory Last 24 Hours Test 02/06/18 05:11 White Blood Count 15.24 K/uL Red Blood Count 2.74 M/uL Hemoglobin 8.0 g/dL Hematocrit 24.6 % Mean Corpuscular Volume 89.8 fL Mean Corpuscular Hemoglobin 29.2 pg Mean Corpuscular Hemoglobin Concent 32.5 g/dl Platelet Count 402 K/uL Mean Platelet Volume 9.3 fL Neutrophils (%) (Auto) 95.2 % Lymphocytes (%) (Auto) 1.6 % Monocytes (%) (Auto) 2.9 % Eosinophils (%) (Auto) 0.0 % Basophils (%) (Auto) 0.0 % Neutrophils # (Auto) 14.51 K/uL Lymphocytes # (Auto) 0.24 K/uL Monocytes # (Auto) 0.44 K/uL Eosinophils # (Auto) 0.00 K/uL Basophils # (Auto) 0.00 K/uL RDW Standard Deviation 48.2 fL RDW Coefficient of Variation 15.4 % Immature Granulocyte % (Auto) 0.3 % Immature Granulocyte # (Auto) 0.05 K/uL Nucleated RBC Absolute Count (auto) 0.02 K/uL Nucleated Red Blood Cells % 0.2 % Red Blood Cell Morphology Unremarkable Sodium Level 138 mmol/L Potassium Level 4.1 mmol/L Chloride Level 105 mmol/L Carbon Dioxide Level 22 mmol/L Anion Gap 11.0 mmol/L Blood Urea Nitrogen 31 mg/dl Creatinine 1.72 mg/dl Est Creatinine Clear Calc Drug Dose 71.0 ml/min Estimated GFR () 53.7 Estimated GFR (Non- 46.3 BUN/Creatinine Ratio 17.7 Random Glucose 103 mg/dl Calcium Level 6.3 mg/dl Phosphorus Level 3.6 mg/dl Magnesium Level 1.5 mg/dl Total Bilirubin 0.1 mg/dl Aspartate Amino Transf (AST/SGOT) 17 U/L Alanine Aminotransferase (ALT/SGPT) 16 U/L Alkaline Phosphatase 611 U/L Total Protein 4.5 gm/dl Albumin 1.6 gm/dl Globulin 2.9 gm/dl Albumin/Globulin Ratio 0.6 Assessment & Plan Yesterday, he finished his first cycle of FOLFIRI, for a presumed small bowel primary. He did OK with chemo. However, his primary issue is ascites. His albumin is very low and he is third-spacing a great deal, which I think is contributing to his dehydration and electrolyte issues. We can look to see if he has enough fluid to tap today, but he just had a 7L paracentesis on Wednesday. We are not going to be able to sustain this rate of procedures. I would consider a GI consultation regarding a peritoneal drain. He may also benefit from some IV albumin. Another option might be diuretics, but given the circumstances, I worry that would just lead to dehydration. Otherwise, continue with PRN antiemetics and other supportive care as indicated.
[2018-02-06] MEDS: LOPERAMIDE HCL 2 MG CAP PO PRN ×3 (11:03→23:28)
[2018-02-06] MEDS: MAGNESIUM SULFATE 1GM / D5W 100 ML IV SCH ×2 (11:06→12:03)
--- NOTE | 2018-02-06 11:33 | Nephrology Progress Note ---
Nephrology Progress Note Date of Service Feb 06, 2018. Chief Complaint Renal insufficiency, multiple electrolyte abnormalities Subjective No acute events overnight. No fevers or chills. Abdominal distention increasing. Denies significant shortness of breath. Appetite fair. Denies significant abdominal symptoms. Review of Systems A complete review of systems was performed. Pertinent positives are noted above. All other systems are negative. Vital Signs Last 8 Hrs Date Time Temp Pulse Resp B/P (MAP) Pulse Ox O2 Delivery O2 Flow Rate FiO2 02/06/18 08:00 97 Room Air 02/06/18 07:32 36.8 104 20 115/67 (83) 95 Room Air 02/06/18 05:20 36.6 106 20 132/76 (94) 95 Room Air Last Recorded Weight Weight (Kilograms): 106.300 Physical Exam General Appearance: no apparent distress, + obese Head: normocephalic, atraumatic Eyes: normal inspection, sclerae normal ENT: normal ENT inspection, pharynx normal Neck: supple, no JVD Respiratory/Chest: no respiratory distress, no accessory muscle use, + decreased breath sounds, + rales (few right base) Cardiovascular: regular rate, rhythm Abdomen/GI: non tender, soft, + distended (+ fluid wave) Extremities/Musculoskelatal: normal inspection, + pedal edema (generalized edema) Neurologic/Psych: alert, + depressed affect Family History Stroke Social History Drug Use: none Marital Status: Housing Status: lives with family Occupation: disabled Laboratory Results Past 24 Hours 02/06/18 05:11 Red Blood Count 2.74, Mean Corpuscular Volume 89.8, Mean Corpuscular Hemoglobin 29.2, Mean Corpuscular Hemoglobin Concent 32.5, Mean Platelet Volume 9.3, Neutrophils (%) (Auto) 95.2, Lymphocytes (%) (Auto) 1.6, Monocytes (%) (Auto) 2.9, Eosinophils (%) (Auto) 0.0, Basophils (%) (Auto) 0.0, Neutrophils # (Auto) 14.51, Lymphocytes # (Auto) 0.24, Monocytes # (Auto) 0.44, Eosinophils # (Auto) 0.00, Basophils # (Auto) 0.00 02/06/18 05:11 Test 02/06/18 05:11 White Blood Count 15.24 K/uL (4.8-10.8) Red Blood Count 2.74 M/uL (4.7-6.1) Hemoglobin 8.0 g/dL (14.0-18.0) Hematocrit 24.6 % (42-52) Mean Corpuscular Volume 89.8 fL (80-100) Mean Corpuscular Hemoglobin 29.2 pg (25-34) Mean Corpuscular Hemoglobin Concent 32.5 g/dl (32-36) Platelet Count 402 K/uL (130-400) Mean Platelet Volume 9.3 fL (7.4-10.4) Neutrophils (%) (Auto) 95.2 % Lymphocytes (%) (Auto) 1.6 % Monocytes (%) (Auto) 2.9 % Eosinophils (%) (Auto) 0.0 % Basophils (%) (Auto) 0.0 % Neutrophils # (Auto) 14.51 K/uL (1.4-6.5) Lymphocytes # (Auto) 0.24 K/uL (1.2-3.4) Monocytes # (Auto) 0.44 K/uL (0.11-0.59) Eosinophils # (Auto) 0.00 K/uL (0-0.5) Basophils # (Auto) 0.00 K/uL (0-0.2) RDW Standard Deviation 48.2 fL (36.4-46.3) RDW Coefficient of Variation 15.4 % (11.5-14.5) Immature Granulocyte % (Auto) 0.3 % Immature Granulocyte # (Auto) 0.05 K/uL (0.00-0.02) Nucleated RBC Absolute Count (auto) 0.02 K/uL (0-0) Nucleated Red Blood Cells % 0.2 % Red Blood Cell Morphology Unremarkable Anion Gap 11.0 mmol/L (3-11) Est Creatinine Clear Calc Drug Dose 71.0 ml/min Estimated GFR () 53.7 Estimated GFR (Non- 46.3 BUN/Creatinine Ratio 17.7 (10-20) Calcium Level 6.3 mg/dl (8.5-10.1) Phosphorus Level 3.6 mg/dl (2.5-4.9) Magnesium Level 1.5 mg/dl (1.8-2.4) Total Bilirubin 0.1 mg/dl (0.2-1) Aspartate Amino Transf (AST/SGOT) 17 U/L (15-37) Alanine Aminotransferase (ALT/SGPT) 16 U/L (12-78) Alkaline Phosphatase 611 U/L (45-117) Total Protein 4.5 gm/dl (6.4-8.2) Albumin 1.6 gm/dl (3.4-5.0) Globulin 2.9 gm/dl (2.5-4.0) Albumin/Globulin Ratio 0.6 (0.9-2) Allergies Coded Allergies: Sulfa Antibiotics (Verified Allergy, Intermediate, RASH, 02/01/18) Medications Current Inpatient Medications Medications (Trade) Dose Ordered Sig/Suraj Route Start Time Stop Time Status Last Admin Dose Admin Enoxaparin Sodium (Lovenox Inj) 40 mg Q24H SQ 02/01/18 21:00 03/03/18 20:59 02/04/18 21:51 40 MG Ondansetron HCl (Zofran Inj) 4 mg Q6H PRN IV 02/01/18 18:15 03/03/18 18:14 02/06/18 02:57 4 MG Atorvastatin Calcium (Lipitor Tab) 10 mg DAILY PO 02/02/18 08:00 03/04/18 08:59 02/06/18 08:11 10 MG Dexamethasone (Decadron Tab) 2 mg BID PO 02/01/18 21:00 03/03/18 20:59 02/06/18 08:08 2 MG Loratadine (Claritin Tab) 10 mg DAILY PO 02/02/18 08:00 03/04/18 08:59 02/06/18 08:09 10 MG Montelukast Sodium (Singulair Tab) 10 mg HS PO 02/01/18 21:00 03/03/18 20:59 02/05/18 20:09 10 MG Pantoprazole Sodium (Protonix Tab) 40 mg DAILY PO 02/02/18 08:00 03/04/18 08:59 02/06/18 08:10 40 MG Mirtazapine (Remeron Tab) 30 mg HS PO 02/02/18 21:00 03/04/18 20:59 02/05/18 20:09 30 MG Ceftriaxone Sodium 2 gm/ Dextrose 50 ml @ 100 mls/hr DAILY@1400 IV 02/02/18 14:00 02/12/18 13:59 02/05/18 14:47 100 MLS/HR Lorazepam (Ativan Tab) 0.5 mg Q6 PRN PO 02/02/18 20:00 03/04/18 19:59 02/06/18 02:57 0.5 MG Potassium Chloride (Klor-Con Tab) 40 meq QAM PO 02/04/18 08:00 03/04/18 08:59 02/06/18 08:10 40 MEQ Ergocalciferol (Vitamin D Cap) 50,000 interunit Th@0900 PO 02/03/18 12:00 03/05/18 11:59 02/03/18 11:23 50,000 INTERUNIT Loperamide HCl (Imodium Cap) 2 mg Q4H PRN PO 02/03/18 08:45 03/05/18 08:44 02/05/18 20:07 2 MG Enteral Nutritional Formula (Boost Breeze Nutritional Drink) 1 box BID PO 02/03/18 20:00 03/05/18 19:59 02/06/18 08:27 1 BOX Heparin Sodium (Porcine) (Heparin 10 Unit/ ml 5 ml Flush) 5 ml PRN PRN FLUSH 02/03/18 12:30 03/05/18 12:29 02/06/18 05:12 5 ML Diphenhydramine HCl (Benadryl Inj) 50 mg UD PRN IV 02/03/18 13:00 02/06/18 12:59 Hydrocortisone Sodium Succinate 100 mg/Syringe 2 ml @ 4 mls/min UD PRN IV 02/03/18 13:00 02/06/18 12:59 Methylprednisolone Sodium Succinate 125 mg/Syringe 2 ml @ 1.5 mls/min UD PRN IV 02/03/18 13:15 02/06/18 13:14 Lorazepam (Ativan Inj) 0.5 mg QPM PRN IV 02/03/18 21:00 02/11/18 00:00 02/05/18 20:20 0.5 MG Lorazepam 0.5 mg/ Syringe 1 ml @ 1 mls/min PM PRN IV 02/03/18 19:00 03/05/18 18:59 02/03/18 20:59 1 MLS/MIN Calcium Carbonate (oS-Oli 500 TAB) 2,500 mg BID PO 02/06/18 20:00 03/05/18 19:59 Magnesium Sulfate 100 ml @ 100 mls/hr Q1H IV 02/06/18 10:00 02/06/18 11:59 Impression (1) Hypokalemia (2) Hypocalcemia (3) Acute kidney injury (4) Hypomagnesemia Mr. Juárez is a 47-year-old male with CKD and advanced metastatic adenocarcinoma. He is notably hypoalbuminemic with recurrent malignant ascites and pleural effusions. Complicating CKD are multiple episodes of BRYNN. This is at least partially related to prior treatment with cisplatin. Creatinine currently remains stable at 1.7-2.0 mg/dL. BP and volume status are reasonable. He has 25OH vitamin D deficiency as well as hypocalcemia. Hypomagnesemia and hypokalemia being replaced as well. Recommendations -- Ergocalciferol 04172 IU weekly -- MgSO4 2 gm provided today -- Calcium carbonate 2,500 mg twice daily (not to be given with food) -- KCl 40 mEq daily -- Monitor metabolic profile with magnesium and phosphorus daily while inpatient -- Document I/O's -- Nutrition consult appreciated -- Therapeutic paracentesis PRN -- Plan of care discussed with Dr. Bojorquez this morning
--- NOTE | 2018-02-06 11:41 | Progress Note ---
Subjective Date of Service: Feb 06, 2018. Subjective Pt evaluation today including: conversation w/ patient, physical exam, chart review, lab review, review of studies, conversation w/ desktop support consultant, review of inpatient medication list Pain: Some abdominal bloating; denies pain PO Intake: Fair Voiding: no voiding problems Mr. Juárez is sleeping although he awakens when I enter the room. He feels tired today. He feels as if there has been more accumulation of fluid in his abdomen. He denies any abdominal pain. Denies any shortness of breath or chest pain. While he was out of bed and walking in the hallways yesterday, he has been in his room for most of today. Problem List Medical Problems: (1) Abdominal distension Status: Acute (2) Anemia Status: Acute (3) Ascites Status: Acute (4) Ascites Status: Acute (5) Bilateral pleural effusion Status: Acute (6) Cholangitis Status: Acute (7) Dehydration Status: Acute (8) Hypoxia Status: Acute (9) Metastatic cancer Status: Acute (10) Nausea & vomiting Status: Acute (11) Neutropenia Status: Acute (12) Respiratory distress Status: Acute (13) Tachycardia Status: Acute (14) Thrombopenia Status: Acute Review of Systems Constitutional: No fever, No chills ENT: No trouble swallowing Respiratory: No cough, No sputum Cardiac: No chest pain, No orthopnea Abdomen: + problem reported (Distention), No pain, No nausea Musculoskeletal: No joint pain Male : No dysuria, No urinary frequency Neurologic: No memory loss Endo: No fatigue Medications Current Inpatient Medications Medications (Trade) Dose Ordered Sig/Suraj Route Start Time Stop Time Status Last Admin Dose Admin Enoxaparin Sodium (Lovenox Inj) 40 mg Q24H SQ 02/01/18 21:00 03/03/18 20:59 02/04/18 21:51 40 MG Ondansetron HCl (Zofran Inj) 4 mg Q6H PRN IV 02/01/18 18:15 03/03/18 18:14 02/06/18 10:58 4 MG Atorvastatin Calcium (Lipitor Tab) 10 mg DAILY PO 02/02/18 08:00 03/04/18 08:59 02/06/18 08:11 10 MG Dexamethasone (Decadron Tab) 2 mg BID PO 02/01/18 21:00 03/03/18 20:59 02/06/18 08:08 2 MG Loratadine (Claritin Tab) 10 mg DAILY PO 02/02/18 08:00 03/04/18 08:59 02/06/18 08:09 10 MG Montelukast Sodium (Singulair Tab) 10 mg HS PO 02/01/18 21:00 03/03/18 20:59 02/05/18 20:09 10 MG Pantoprazole Sodium (Protonix Tab) 40 mg DAILY PO 02/02/18 08:00 03/04/18 08:59 02/06/18 08:10 40 MG Mirtazapine (Remeron Tab) 30 mg HS PO 02/02/18 21:00 03/04/18 20:59 02/05/18 20:09 30 MG Ceftriaxone Sodium 2 gm/ Dextrose 50 ml @ 100 mls/hr DAILY@1400 IV 02/02/18 14:00 02/12/18 13:59 02/05/18 14:47 100 MLS/HR Lorazepam (Ativan Tab) 0.5 mg Q6 PRN PO 02/02/18 20:00 03/04/18 19:59 02/06/18 11:03 0.5 MG Potassium Chloride (Klor-Con Tab) 40 meq QAM PO 02/04/18 08:00 03/04/18 08:59 02/06/18 08:10 40 MEQ Ergocalciferol (Vitamin D Cap) 50,000 interunit Th@0900 PO 02/03/18 12:00 03/05/18 11:59 02/03/18 11:23 50,000 INTERUNIT Loperamide HCl (Imodium Cap) 2 mg Q4H PRN PO 02/03/18 08:45 03/05/18 08:44 02/06/18 11:03 2 MG Enteral Nutritional Formula (Boost Breeze Nutritional Drink) 1 box BID PO 02/03/18 20:00 03/05/18 19:59 02/06/18 08:27 1 BOX Heparin Sodium (Porcine) (Heparin 10 Unit/ ml 5 ml Flush) 5 ml PRN PRN FLUSH 02/03/18 12:30 03/05/18 12:29 02/06/18 05:12 5 ML Diphenhydramine HCl (Benadryl Inj) 50 mg UD PRN IV 02/03/18 13:00 02/06/18 12:59 Hydrocortisone Sodium Succinate 100 mg/Syringe 2 ml @ 4 mls/min UD PRN IV 02/03/18 13:00 02/06/18 12:59 Methylprednisolone Sodium Succinate 125 mg/Syringe 2 ml @ 1.5 mls/min UD PRN IV 02/03/18 13:15 02/06/18 13:14 Lorazepam (Ativan Inj) 0.5 mg QPM PRN IV 02/03/18 21:00 02/11/18 00:00 02/05/18 20:20 0.5 MG Lorazepam 0.5 mg/ Syringe 1 ml @ 1 mls/min PM PRN IV 02/03/18 19:00 03/05/18 18:59 02/03/18 20:59 1 MLS/MIN Calcium Carbonate (oS-Oli 500 TAB) 2,500 mg BID PO 02/06/18 20:00 03/05/18 19:59 Magnesium Sulfate 100 ml @ 100 mls/hr Q1H IV 02/06/18 10:00 02/06/18 11:59 02/06/18 11:06 100 MLS/HR Objective Vital Signs Date Time Temp Pulse Resp B/P (MAP) Pulse Ox O2 Delivery O2 Flow Rate FiO2 02/06/18 11:13 36.2 107 18 127/85 (99) 92 02/06/18 08:00 97 Room Air 02/06/18 07:32 36.8 104 20 115/67 (83) 95 Room Air 02/06/18 05:20 36.6 106 20 132/76 (94) 95 Room Air 02/05/18 23:50 36.6 97 18 107/75 (86) 97 Room Air 02/05/18 21:02 36.7 100 20 105/71 (82) 95 Room Air 02/05/18 20:00 Room Air 02/05/18 15:02 36.7 110 18 119/90 (100) 94 Physical Exam General Appearance: WD/WN, no apparent distress Eyes: normal inspection ENT: hearing grossly normal Neck: supple Respiratory/Chest: chest non-tender, lungs clear Cardiovascular: regular rate, rhythm, + pertinent finding Abdomen: normal bowel sounds, non tender, + distended Extremities: normal range of motion, non-tender, + swelling Neurologic/Psychiatric: no motor/sensory deficits, alert, normal mood/affect, oriented x 3 Skin: normal color Laboratory Results Last 24 Hours Test 02/06/18 05:11 White Blood Count 15.24 K/uL Red Blood Count 2.74 M/uL Hemoglobin 8.0 g/dL Hematocrit 24.6 % Mean Corpuscular Volume 89.8 fL Mean Corpuscular Hemoglobin 29.2 pg Mean Corpuscular Hemoglobin Concent 32.5 g/dl Platelet Count 402 K/uL Mean Platelet Volume 9.3 fL Neutrophils (%) (Auto) 95.2 % Lymphocytes (%) (Auto) 1.6 % Monocytes (%) (Auto) 2.9 % Eosinophils (%) (Auto) 0.0 % Basophils (%) (Auto) 0.0 % Neutrophils # (Auto) 14.51 K/uL Lymphocytes # (Auto) 0.24 K/uL Monocytes # (Auto) 0.44 K/uL Eosinophils # (Auto) 0.00 K/uL Basophils # (Auto) 0.00 K/uL RDW Standard Deviation 48.2 fL RDW Coefficient of Variation 15.4 % Immature Granulocyte % (Auto) 0.3 % Immature Granulocyte # (Auto) 0.05 K/uL Nucleated RBC Absolute Count (auto) 0.02 K/uL Nucleated Red Blood Cells % 0.2 % Red Blood Cell Morphology Unremarkable Sodium Level 138 mmol/L Potassium Level 4.1 mmol/L Chloride Level 105 mmol/L Carbon Dioxide Level 22 mmol/L Anion Gap 11.0 mmol/L Blood Urea Nitrogen 31 mg/dl Creatinine 1.72 mg/dl Est Creatinine Clear Calc Drug Dose 71.0 ml/min Estimated GFR () 53.7 Estimated GFR (Non- 46.3 BUN/Creatinine Ratio 17.7 Random Glucose 103 mg/dl Calcium Level 6.3 mg/dl Phosphorus Level 3.6 mg/dl Magnesium Level 1.5 mg/dl Total Bilirubin 0.1 mg/dl Aspartate Amino Transf (AST/SGOT) 17 U/L Alanine Aminotransferase (ALT/SGPT) 16 U/L Alkaline Phosphatase 611 U/L Total Protein 4.5 gm/dl Albumin 1.6 gm/dl Globulin 2.9 gm/dl Albumin/Globulin Ratio 0.6 Assessment and Plan Metastatic adenocarcinoma, uncertain primary site but suspect duodenal Discussed with hematology and nephrology Discussed palliative paracentesis tomorrow; would recommend IV albumin immediately following paracentesis. Monitor CBC; could consider palliative transfusion of packed red blood cells should it fall. Anemia Stable and slightly improved today Continue to monitor; I suspect it may drop further secondary to chemotherapy There may be a palliative benefit to RBC transfusion; will discuss with oncology Acute on chronic BRYNN in the setting of ATN Hypokalemia Hypomagnesemia Hypocalcemia Replete with help of nephrology Depression with suicidal ideation Anxiety/insomnia Not actively suicidal Psychiatric input appreciated Ativan as needed Hyperlipidemia Remains on a statin though I would have a low threshold for discontinuation Continued [facility] stay due to: multiple IV medications needed Discharge planning: home
[2018-02-06] MEDS: CEFTRIAXONE SOD INJ 2000 MG in DEXTROSE 5% 50ML IV SCH (13:16)
[2018-02-06 16:54] LABS: HEMATOCRIT 29.8 % (42-52); HEMOGLOBIN 9.3 g/dL (14.0-18.0); MEAN CELL VOLUME 90.3 fL (80-100); MEAN CORPUSCULAR HEMOGLOBIN 28.2 pg (25-34); MEAN CORPUSCULAR HGB CONC 31.2 g/dl (32-36); MEAN PLATELET VOLUME 9.6 fL (7.4-10.4); PLATELET COUNT 525 K/uL (130-400); RED CELL DISTRIBUTION WIDTH CV 15.4 % (11.5-14.5); RED CELL DISTRIBUTION WIDTH SD 48.6 fL (36.4-46.3); WHITE BLOOD COUNT 21.26 K/uL (4.8-10.8)
[2018-02-06 17:04] LABS: CALCIUM 6.3 mg/dl (8.5-10.1); CREATININE 2.05 mg/dl (0.60-1.40); POTASSIUM 4.1 mmol/L (3.5-5.1)
[2018-02-06 17:16] LABS: BASO ABS # 0.01 K/uL (0-0.2); IG# 0.08 K/uL (0.00-0.02); LYMPH % 2.4 %; LYMPH ABS # 0.52 K/uL (1.2-3.4); MONO % 2.7 %; MONO ABS # 0.58 K/uL (0.11-0.59); NEUT % 94.5 %; NEUT ABS # 20.07 K/uL (1.4-6.5)
[2018-02-06] MEDS ORDERED: SODIUM CHLORIDE 0.9% 1000 ML BAG IV ONE (19:35)
[2018-02-06] MEDS ORDERED: SODIUM CHLORIDE 0.9% 10ML FLUSH IV ONE (19:35)
[2018-02-06] MEDS: ENOXAPARIN 40 MG/0.4 ML SYR SQ SCH (21:00)
[2018-02-06] MEDS: MIRTAZAPINE TAB 15 MG TAB PO SCH (21:06)
[2018-02-06] MEDS: MONTELUKAST SOD 10 MG TAB PO SCH (21:06)
[2018-02-06] MEDS: LORAZEPAM INJ 0.5 MG in SYRINGE 0.75 ML IV PRN (23:28)
[2018-02-07] VITALS (11 sets, daily range): BP systolic 101–154; BP diastolic 62–103; PULSE 98–116; TEMP 36.3–37.5; O2SAT 94–99
[2018-02-07] MEDS: LOPERAMIDE HCL 2 MG CAP PO PRN ×3 (04:38→20:13)
[2018-02-07 06:26] LABS: BASO % 0.1 %; BASO ABS # 0.01 K/uL (0-0.2); HEMATOCRIT 26.2 % (42-52); HEMOGLOBIN 8.4 g/dL (14.0-18.0); IG# 0.05 K/uL (0.00-0.02); LYMPH % 1.4 %; LYMPH ABS # 0.22 K/uL (1.2-3.4); MEAN CORPUSCULAR HEMOGLOBIN 28.9 pg (25-34); MEAN CORPUSCULAR HGB CONC 32.1 g/dl (32-36); MEAN PLATELET VOLUME 9.3 fL (7.4-10.4); MONO % 1.2 %; MONO ABS # 0.19 K/uL (0.11-0.59); NEUT ABS # 15.73 K/uL (1.4-6.5); PLATELET COUNT 345 K/uL (130-400); RED CELL DISTRIBUTION WIDTH CV 15.3 % (11.5-14.5); RED CELL DISTRIBUTION WIDTH SD 48.8 fL (36.4-46.3)
[2018-02-07 07:04] LABS: ALBUMIN 1.6 gm/dl (3.4-5.0); CALCIUM 6.1 mg/dl (8.5-10.1); CREATININE 1.86 mg/dl (0.60-1.40); PHOSPHORUS 3.5 mg/dl (2.5-4.9); POTASSIUM 4.1 mmol/L (3.5-5.1); TOTAL PROTEIN 4.5 gm/dl (6.4-8.2)
[2018-02-07] MEDS: ONDANSETRON INJ 2 MG/ML 2 ML VIAL IV PRN ×2 (08:27→16:32)
--- NOTE | 2018-02-07 09:42 | HEME/ONC PROGRESS NOTE ---
DATE: 02/07/2018 DIAGNOSES: 1. Metastatic colorectal cancer. 2. Hypokalemia. 3. Malignant ascites. 4. Hypomagnesemia. 5. Hypoalbuminemia. 6. Acute renal injury. 7. Anxiety/depression. SUBJECTIVE: Ashok was seen and examined at bedside today. Again, he is a very pleasant but unfortunate 48-year-old gentleman with a metastatic colorectal cancer, recently completed his first round of FOLFIRI. Despite intervention, he continues to develop ascites needing frequent paracentesis yesterday. Yesterday unfortunately, he developed lightheadedness in the bathroom and dropped his pressure precipitously. Nursing states he will undergo a paracentesis today. Unfortunately, he still remains medically unstable and probably should not go home until he can hold his pressure and ambulate from point A to point B without becoming syncopal. His p.o. intake has been minimal. PHYSICAL EXAMINATION: GENERAL: He is in no acute distress. VITAL SIGNS: His current temperature is 37.5, pulse 102, respiratory rate 20, blood pressure 127/83. SKIN: Without rash or lesion. HEENT: Mucous membranes are dry. HEART: Tachycardic, but regular. LUNGS: Clear to auscultation bilaterally. ABDOMEN: Significantly distended with shifting dullness. EXTREMITIES: +1 peripheral edema bilaterally, lower extremities. NEUROLOGIC: Grossly intact. LABORATORY DATA: WBC count 16,200, hemoglobin 8.4, platelet count 345,000. Albumin 1.6, alkaline phosphatase 600. Sodium 137, potassium 4.1, chloride 105, carbon dioxide 22, creatinine 1.86, BUN 34. IMPRESSION: 1. Malignant ascites. 2. Hypoalbuminemia. 3. Metastatic colorectal cancer. 4. Acute renal injury. 5. Failing performance status. PLAN: Ashok unfortunately despite receiving his first round of FOLFIRI chemotherapy continues to do poorly. Apparently, developed an episode of hypotension and near syncope yesterday. Agree with the nephrology service this gentleman probably should receive regular albumin until his nutritional status is improved. Nursing claims Ashok will undergo a paracentesis later on today. It is my hope that now he has received chemotherapy. The rate of accumulation will slow but certainly cannot be predicted with certainty. I agree with medical management otherwise. We will continue to follow Ashok periodically throughout his hospital stay. I can be contacted by phone if there are any concerns. CHARLIE
[2018-02-07] MEDS: CALCIUM CARBONATE 1250MG TAB PO SCH ×2 (09:54→20:04)
[2018-02-07] MEDS: LORATADINE 10 MG TAB PO SCH (09:54)
[2018-02-07] MEDS: PANTOprazole SOD 40 MG TAB PO SCH (09:55)
[2018-02-07] MEDS: DEXAMETHASONE 4 MG TAB PO SCH ×2 (09:55→20:05)
[2018-02-07] MEDS: ATORVASTATIN 10 MG TAB PO SCH (09:55)
[2018-02-07] MEDS: BOOST BREEZE NUTRITION DRINK 1 BOX PO SCH ×2 (09:56→20:26)
[2018-02-07] MEDS: POTASSIUM CHLORIDE 20 MEQ TABCR PO SCH (09:56)
[2018-02-07] MEDS: LORAZEPAM 0.5 MG TAB PO PRN (09:58)
--- NOTE | 2018-02-07 11:28 | Nephrology Progress Note ---
Nephrology Progress Note Date of Service Feb 07, 2018. Chief Complaint BRYNN, electrolyte abnormalities Subjective Mr. Juárez was seen & examined in his hospital room this morning. His was present at bedside. He remains very uncomfortable due to recurrent ascites. His last paracentesis was Wednesday. He again has tense ascites and feels that he is in need of repeat paracentesis this am. Review of Systems Constitutional: No fever Cardiovascular: No chest pain Respiratory: No dyspnea at rest Abdomen: No pain, No nausea, No vomiting Extremities: No leg edema A complete review of systems was performed. Pertinent positives are noted above. All other systems are negative. Vital Signs Last 8 Hrs Date Time Temp Pulse Resp B/P (MAP) Pulse Ox O2 Delivery O2 Flow Rate FiO2 02/07/18 10:39 108 122/87 (99) 96 Room Air 02/07/18 08:30 Room Air 02/07/18 07:44 37.5 102 20 127/83 (98) 96 02/07/18 04:34 36.6 116 24 154/103 (120) 94 Room Air Last Recorded Weight Weight (Kilograms): 108.600 Physical Exam General Appearance: no apparent distress Head: normocephalic, atraumatic Eyes: PERRL, EOMI Neck: no adenopathy Respiratory/Chest: lungs clear, no respiratory distress Cardiovascular: regular rate, rhythm Abdomen/GI: + distended (hypoactive bowel sounds, nontender) Extremities/Musculoskelatal: no calf tenderness, no pedal edema Neurologic/Psych: alert, oriented x 3 Family History Stroke Social History Drug Use: none Marital Status: Housing Status: lives with family Occupation: disabled Laboratory Results Past 24 Hours 02/06/18 15:21 Red Blood Count 3.30, Mean Corpuscular Volume 90.3, Mean Corpuscular Hemoglobin 28.2, Mean Corpuscular Hemoglobin Concent 31.2, Mean Platelet Volume 9.6, Neutrophils (%) (Auto) 94.5, Lymphocytes (%) (Auto) 2.4, Monocytes (%) (Auto) 2.7, Eosinophils (%) (Auto) 0.0, Basophils (%) (Auto) 0.0, Neutrophils # (Auto) 20.07, Lymphocytes # (Auto) 0.52, Monocytes # (Auto) 0.58, Eosinophils # (Auto) 0.00, Basophils # (Auto) 0.01 02/07/18 05:22 Red Blood Count 2.91, Mean Corpuscular Volume 90.0, Mean Corpuscular Hemoglobin 28.9, Mean Corpuscular Hemoglobin Concent 32.1, Mean Platelet Volume 9.3, Neutrophils (%) (Auto) 97.0, Lymphocytes (%) (Auto) 1.4, Monocytes (%) (Auto) 1.2, Eosinophils (%) (Auto) 0.0, Basophils (%) (Auto) 0.1, Neutrophils # (Auto) 15.73, Lymphocytes # (Auto) 0.22, Monocytes # (Auto) 0.19, Eosinophils # (Auto) 0.00, Basophils # (Auto) 0.01 02/06/18 15:21 02/07/18 05:22 Test 02/06/18 15:21 02/07/18 05:22 White Blood Count 21.26 K/uL (4.8-10.8) 16.20 K/uL (4.8-10.8) Red Blood Count 3.30 M/uL (4.7-6.1) 2.91 M/uL (4.7-6.1) Hemoglobin 9.3 g/dL (14.0-18.0) 8.4 g/dL (14.0-18.0) Hematocrit 29.8 % (42-52) 26.2 % (42-52) Mean Corpuscular Volume 90.3 fL (80-100) 90.0 fL (80-100) Mean Corpuscular Hemoglobin 28.2 pg (25-34) 28.9 pg (25-34) Mean Corpuscular Hemoglobin Concent 31.2 g/dl (32-36) 32.1 g/dl (32-36) Platelet Count 525 K/uL (130-400) 345 K/uL (130-400) Mean Platelet Volume 9.6 fL (7.4-10.4) 9.3 fL (7.4-10.4) Neutrophils (%) (Auto) 94.5 % 97.0 % Lymphocytes (%) (Auto) 2.4 % 1.4 % Monocytes (%) (Auto) 2.7 % 1.2 % Eosinophils (%) (Auto) 0.0 % 0.0 % Basophils (%) (Auto) 0.0 % 0.1 % Neutrophils # (Auto) 20.07 K/uL (1.4-6.5) 15.73 K/uL (1.4-6.5) Lymphocytes # (Auto) 0.52 K/uL (1.2-3.4) 0.22 K/uL (1.2-3.4) Monocytes # (Auto) 0.58 K/uL (0.11-0.59) 0.19 K/uL (0.11-0.59) Eosinophils # (Auto) 0.00 K/uL (0-0.5) 0.00 K/uL (0-0.5) Basophils # (Auto) 0.01 K/uL (0-0.2) 0.01 K/uL (0-0.2) RDW Standard Deviation 48.6 fL (36.4-46.3) 48.8 fL (36.4-46.3) RDW Coefficient of Variation 15.4 % (11.5-14.5) 15.3 % (11.5-14.5) Immature Granulocyte % (Auto) 0.4 % 0.3 % Immature Granulocyte # (Auto) 0.08 K/uL (0.00-0.02) 0.05 K/uL (0.00-0.02) Anion Gap 12.0 mmol/L (3-11) 11.0 mmol/L (3-11) Est Creatinine Clear Calc Drug Dose 59.6 ml/min 66.3 ml/min Estimated GFR () 43.4 48.8 Estimated GFR (Non- 37.5 42.1 BUN/Creatinine Ratio 16.0 (10-20) 18.4 (10-20) Calcium Level 6.3 mg/dl (8.5-10.1) 6.1 mg/dl (8.5-10.1) Red Blood Cell Morphology Unremarkable Phosphorus Level 3.5 mg/dl (2.5-4.9) Magnesium Level 1.7 mg/dl (1.8-2.4) Total Bilirubin 0.2 mg/dl (0.2-1) Aspartate Amino Transf (AST/SGOT) 18 U/L (15-37) Alanine Aminotransferase (ALT/SGPT) 16 U/L (12-78) Alkaline Phosphatase 600 U/L (45-117) Total Protein 4.5 gm/dl (6.4-8.2) Albumin 1.6 gm/dl (3.4-5.0) Globulin 2.9 gm/dl (2.5-4.0) Albumin/Globulin Ratio 0.6 (0.9-2) Allergies Coded Allergies: Sulfa Antibiotics (Verified Allergy, Intermediate, RASH, 02/01/18) Medications Current Inpatient Medications Medications (Trade) Dose Ordered Sig/Suraj Route Start Time Stop Time Status Last Admin Dose Admin Enoxaparin Sodium (Lovenox Inj) 40 mg Q24H SQ 02/01/18 21:00 03/03/18 20:59 02/04/18 21:51 40 MG Ondansetron HCl (Zofran Inj) 4 mg Q6H PRN IV 02/01/18 18:15 03/03/18 18:14 02/07/18 08:27 4 MG Atorvastatin Calcium (Lipitor Tab) 10 mg DAILY PO 02/02/18 08:00 03/04/18 08:59 02/07/18 09:55 10 MG Dexamethasone (Decadron Tab) 2 mg BID PO 02/01/18 21:00 03/03/18 20:59 02/07/18 09:55 2 MG Loratadine (Claritin Tab) 10 mg DAILY PO 02/02/18 08:00 03/04/18 08:59 02/07/18 09:54 10 MG Montelukast Sodium (Singulair Tab) 10 mg HS PO 02/01/18 21:00 03/03/18 20:59 02/06/18 21:06 10 MG Pantoprazole Sodium (Protonix Tab) 40 mg DAILY PO 02/02/18 08:00 03/04/18 08:59 02/07/18 09:55 40 MG Mirtazapine (Remeron Tab) 30 mg HS PO 02/02/18 21:00 03/04/18 20:59 02/06/18 21:06 30 MG Ceftriaxone Sodium 2 gm/ Dextrose 50 ml @ 100 mls/hr DAILY@1400 IV 02/02/18 14:00 02/12/18 13:59 02/06/18 13:16 100 MLS/HR Lorazepam (Ativan Tab) 0.5 mg Q6 PRN PO 02/02/18 20:00 03/04/18 19:59 02/07/18 09:58 0.5 MG Potassium Chloride (Klor-Con Tab) 40 meq QAM PO 02/04/18 08:00 03/04/18 08:59 02/07/18 09:56 40 MEQ Ergocalciferol (Vitamin D Cap) 50,000 interunit Th@0900 PO 02/03/18 12:00 03/05/18 11:59 02/03/18 11:23 50,000 INTERUNIT Loperamide HCl (Imodium Cap) 2 mg Q4H PRN PO 02/03/18 08:45 03/05/18 08:44 02/07/18 09:58 2 MG Enteral Nutritional Formula (Boost Breeze Nutritional Drink) 1 box BID PO 02/03/18 20:00 03/05/18 19:59 02/07/18 09:56 1 BOX Heparin Sodium (Porcine) (Heparin 10 Unit/ ml 5 ml Flush) 5 ml PRN PRN FLUSH 02/03/18 12:30 03/05/18 12:29 02/07/18 08:27 5 ML Lorazepam (Ativan Inj) 0.5 mg QPM PRN IV 02/03/18 21:00 02/11/18 00:00 02/05/18 20:20 0.5 MG Lorazepam 0.5 mg/ Syringe 1 ml @ 1 mls/min PM PRN IV 02/03/18 19:00 03/05/18 18:59 02/06/18 23:28 1 MLS/MIN Calcium Carbonate (oS-Oli 500 TAB) 2,500 mg BID PO 02/06/18 20:00 03/05/18 19:59 02/07/18 09:54 2,500 MG Impression (1) Hypokalemia (2) Hypocalcemia (3) Acute kidney injury (4) Hypomagnesemia Mr. Juárez is a 47-year-old male with CKD and advanced metastatic adenocarcinoma of GI primary. He is notably hypoalbuminemic with recurrent malignant ascites and pleural effusions. Complicating CKD are multiple episodes of BRYNN. This is at least partially related to prior treatment with cisplatin. Creatinine currently remains stable at 1.7-2.0 mg/dL. BP and volume status are reasonable. He has 25OH vitamin D deficiency as well as hypocalcemia. Hypomagnesemia and hypokalemia being replaced as well. Recommendations -- Ergocalciferol 09751 IU weekly -- Calcium carbonate 2,500 mg twice daily (not to be given with food) -- KCl 40 mEq daily -- Monitor metabolic profile with magnesium and phosphorus daily while inpatient -- Document I/O's -- Therapeutic paracentesis today followed by albumin infusion -- Plan of care discussed with primary service this am -- Await Oncology input
[2018-02-07] MEDS ORDERED: CALCIUM GLUCONATE IV SCH (12:00)
[2018-02-07] MEDS ORDERED: SODIUM CHLORIDE 0.9% IV SCH (12:00)
--- NOTE | 2018-02-07 12:58 | Family Medicine Progress Note ---
Progress Note Date of Service Feb 07, 2018. Subjective Pain: 4/10 PO Intake: Tolerating Voiding: no voiding problems Patient was resting comfortably when I examined him this a.m. He reported sleeping well and tolerating his diet. Currently he is taking prn adavant around the clock and reports improvement in his anxiety. While I was in the room the patient had an episode of orthostatic hypotension when raising to go to the bathroom. He complained of abdominal fullness and distension. Constitutional: + weakness, No fever, No chills, No sweats Respiratory: No cough, No sputum, No wheezing Cardiovascular: No chest pain, No edema, No palpitations Abdomen: + pain, No nausea, No vomiting, No diarrhea, No constipation Musculoskeletal: No joint pain, No calf pain Psychiatric: + depression symptoms, + anxiety Skin: No rash, No itch All Other Systems: Reviewed and Negative Medications Current Inpatient Medications Medications (Trade) Dose Ordered Sig/Suraj Route Start Time Stop Time Status Last Admin Dose Admin Enoxaparin Sodium (Lovenox Inj) 40 mg Q24H SQ 02/01/18 21:00 03/03/18 20:59 02/04/18 21:51 40 MG Ondansetron HCl (Zofran Inj) 4 mg Q6H PRN IV 02/01/18 18:15 03/03/18 18:14 02/07/18 08:27 4 MG Atorvastatin Calcium (Lipitor Tab) 10 mg DAILY PO 02/02/18 08:00 03/04/18 08:59 02/07/18 09:55 10 MG Dexamethasone (Decadron Tab) 2 mg BID PO 02/01/18 21:00 03/03/18 20:59 02/07/18 09:55 2 MG Loratadine (Claritin Tab) 10 mg DAILY PO 02/02/18 08:00 03/04/18 08:59 02/07/18 09:54 10 MG Montelukast Sodium (Singulair Tab) 10 mg HS PO 02/01/18 21:00 03/03/18 20:59 02/06/18 21:06 10 MG Pantoprazole Sodium (Protonix Tab) 40 mg DAILY PO 02/02/18 08:00 03/04/18 08:59 02/07/18 09:55 40 MG Mirtazapine (Remeron Tab) 30 mg HS PO 02/02/18 21:00 03/04/18 20:59 02/06/18 21:06 30 MG Ceftriaxone Sodium 2 gm/ Dextrose 50 ml @ 100 mls/hr DAILY@1400 IV 02/02/18 14:00 02/12/18 13:59 02/06/18 13:16 100 MLS/HR Lorazepam (Ativan Tab) 0.5 mg Q6 PRN PO 02/02/18 20:00 03/04/18 19:59 02/07/18 09:58 0.5 MG Potassium Chloride (Klor-Con Tab) 40 meq QAM PO 02/04/18 08:00 03/04/18 08:59 02/07/18 09:56 40 MEQ Ergocalciferol (Vitamin D Cap) 50,000 interunit Th@0900 PO 02/03/18 12:00 03/05/18 11:59 02/03/18 11:23 50,000 INTERUNIT Loperamide HCl (Imodium Cap) 2 mg Q4H PRN PO 02/03/18 08:45 03/05/18 08:44 02/07/18 09:58 2 MG Enteral Nutritional Formula (Boost Breeze Nutritional Drink) 1 box BID PO 02/03/18 20:00 03/05/18 19:59 02/07/18 09:56 1 BOX Heparin Sodium (Porcine) (Heparin 10 Unit/ ml 5 ml Flush) 5 ml PRN PRN FLUSH 02/03/18 12:30 03/05/18 12:29 02/07/18 08:27 5 ML Lorazepam (Ativan Inj) 0.5 mg QPM PRN IV 02/03/18 21:00 02/11/18 00:00 02/05/18 20:20 0.5 MG Lorazepam 0.5 mg/ Syringe 1 ml @ 1 mls/min PM PRN IV 02/03/18 19:00 03/05/18 18:59 02/06/18 23:28 1 MLS/MIN Calcium Carbonate (oS-Oli 500 TAB) 2,500 mg BID PO 02/06/18 20:00 03/05/18 19:59 02/07/18 09:54 2,500 MG Calcium Gluconate 1000 mg/Sodium Chloride 260 ml @ 260 mls/hr TODAY@1200 IV 02/07/18 12:00 03/09/18 11:59 02/07/18 12:13 260 MLS/HR Objective Physical Exam General Appearance: WD/WN, no apparent distress Eyes: normal inspection, EOMI, sclerae normal Neck: supple, no adenopathy, thyroid normal, no JVD, no carotid bruits, trachea midline Respiratory/Chest: chest non-tender, lungs clear, normal breath sounds, no respiratory distress, no accessory muscle use Cardiovascular: no edema, no gallop, no JVD, no murmur, + tachycardia Abdomen: normal bowel sounds, no organomegaly, no pulsatile mass, + distended Extremities: normal inspection, no pedal edema, no calf tenderness, normal capillary refill, pelvis stable Neurologic/Psychiatric: no motor/sensory deficits, alert, normal mood/affect, oriented x 3 Skin: normal color, warm/dry, no rash Lymphatic: no adenopathy Laboratory Results Last Resulted 02/07/18 05:22 Red Blood Count 2.91, Mean Corpuscular Volume 90.0, Mean Corpuscular Hemoglobin 28.9, Mean Corpuscular Hemoglobin Concent 32.1, Mean Platelet Volume 9.3, Neutrophils (%) (Auto) 97.0, Lymphocytes (%) (Auto) 1.4, Monocytes (%) (Auto) 1.2, Eosinophils (%) (Auto) 0.0, Basophils (%) (Auto) 0.1, Neutrophils # (Auto) 15.73, Lymphocytes # (Auto) 0.22, Monocytes # (Auto) 0.19, Eosinophils # (Auto) 0.00, Basophils # (Auto) 0.01 Last Resulted 02/07/18 05:22 Assessment and Plan 47-year-old man with PMhx of tia, Barretts esophagus, ckd, HTN, HLD, recently dx 'd [facility] Adenocarcinoma of unknown primary source, admitted for evaluation of weakness and tremor. IV ABX to PPX against SBP and CHEMO ppx - Recent hx of paracentesis given Ca DX, ppx against sbp - Day 3 of Iv Ceftriaxone - F/U Cx - NGTD Hypokalemia -trend K+ levels daily -Management per Nephro -S/P paracentesis ordered pm labs Hypomagnesemia -Trend Mg levels daily -Management per Nephro -S/P paracentesis ordered pm labs Hypocalcemia -Trend Ca levels daily -Management per Nephro -S/P paracentesis ordered pm labs Metastatic AdenoCarcinoma of unknown orgin -PSA negative -medical records from [facility] Obtained -Consulted Heme/Onc -biopsy @ [facility] of his duodenal ulcer revealed an adenocarcinoma -previously had minimal to no response to cisplatin and obviously tolerated it very poorly -based on bx treat him on the presumption of a duodenal or small bowel primary -Completed first round of FOLFIRI -Consulted Psych "- Increase Remeron to 30 mg. HS - No criteria for inpatient care" -Consulted Nephro" -- Ergocalciferol 86732 IU weekly -- Calcium carbonate 2,500 mg twice daily (not to be given with food) -- KCl 40 mEq daily -- Monitor metabolic profile with magnesium and phosphorus daily while inpatient -- Document I/O's -- Therapeutic paracentesis today followed by albumin infusion -- Plan of care discussed with primary service this am -- Await Oncology input" -Consulted nutrition - Continue with Regular diet - Will attempt PO supplement with Pt and monitor Pt's acceptance. - Pt agreeable to continue with snacks that had been initiated - Will continue to work with Pt and monitor Pt's labs, weights, PO intake, need for additional interventions/education -Hypoalbuminemia 2/2 AdenoCa for 50 grams s/p paracentesis Acute on chronic BRYNN in the setting of ATN and tumor lysis syndrome -Nephro Consulted see above -Trending BMP -Trending PO4 -Avoid Nephrotoxic Medications Hyperlipidemia -resumed home statin Anxiety/Insomnia: -provided prn 0.5mg ativan Q6 -gave 1 time IV 0.5mg Ativan last night. Patient said he preferred IV ativan. Orthostatic hypotension -Had code purple over the weekend -Likely 2/2 abdominal ascites hopefully will resolve s/p paracentesis FULL CODE DVT: Lovenox Diet: Regular Continued [facility] stay due to: multiple IV medications needed Discharge planning: home with home health Resident Tracking Resident Involvement: Resident Care Provided Care Provided: Adult Hospital Medicine
[2018-02-07] MEDS: ALBUMIN HUMAN 25% 12.5 GM/50 ML VIAL IV SCH ×4 (14:26→17:04)
[2018-02-07] MEDS: CEFTRIAXONE SOD INJ 2000 MG in DEXTROSE 5% 50ML IV SCH (14:26)
--- NOTE | 2018-02-07 14:31 | DIAGNOSTIC IMAGING REPORT ---
ULTRASOUND GUIDED THERAPEUTIC PARACENTESIS CLINICAL HISTORY: Ascites. COMPARISON STUDY: Ultrasound guided paracentesis February 04, 2018. PROCEDURE: The risks, benefits, and alternatives to the procedure were discussed with the patient including the risk of bleeding, infection and injury to adjacent structures. The patient agreed to the procedure and informed written consent was obtained. Following real-time ultrasound localization, the skin of the right lower quadrant was prepped and draped. Following local anesthesia with Xylocaine, the sheath paracentesis needle was inserted and approximately 7.7 liters of chylous ascites was removed by vacuum suction. The patient tolerated the procedure well and no immediate complications were evident. IMPRESSION: Ultrasound-guided paracentesis with removal of 7.7 L of chylous ascites. Electronically signed by: Ronnie Goddard M.D. 02/07/2018 2:30 PM Dictated Date/Time: 02/07/2018 2:29 PM
[2018-02-07] MEDS: ENOXAPARIN 40 MG/0.4 ML SYR SQ SCH (20:05)
[2018-02-07] MEDS: MIRTAZAPINE TAB 15 MG TAB PO SCH (20:06)
[2018-02-07] MEDS: MONTELUKAST SOD 10 MG TAB PO SCH (20:06)
[2018-02-07] MEDS: LORAZEPAM 2 MG/ML 1 ML VIAL IV PRN (20:14)
[2018-02-08] VITALS (7 sets, daily range): BP systolic 108–141; BP diastolic 73–95; PULSE 88–115; TEMP 36.4–37.1; O2SAT 95–99
[2018-02-08] MEDS: ONDANSETRON INJ 2 MG/ML 2 ML VIAL IV PRN ×3 (00:30→21:26)
[2018-02-08] MEDS: LOPERAMIDE HCL 2 MG CAP PO PRN ×2 (00:30→07:58)
[2018-02-08] MEDS: LORAZEPAM 0.5 MG TAB PO PRN ×3 (02:18→12:32)
[2018-02-08 06:32] LABS: HEMOGLOBIN 7.2 g/dL (14.0-18.0); IG# 0.04 K/uL (0.00-0.02); LYMPH % 1.8 %; LYMPH ABS # 0.21 K/uL (1.2-3.4); MEAN CELL VOLUME 88.2 fL (80-100); MEAN CORPUSCULAR HEMOGLOBIN 30.3 pg (25-34); MEAN CORPUSCULAR HGB CONC 34.3 g/dl (32-36); MEAN PLATELET VOLUME 8.7 fL (7.4-10.4); MONO % 0.9 %; MONO ABS # 0.11 K/uL (0.11-0.59); NEUT ABS # 11.55 K/uL (1.4-6.5); PLATELET COUNT 202 K/uL (130-400); RED CELL DISTRIBUTION WIDTH CV 15.1 % (11.5-14.5); RED CELL DISTRIBUTION WIDTH SD 47.3 fL (36.4-46.3); WHITE BLOOD COUNT 11.91 K/uL (4.8-10.8)
[2018-02-08 07:06] LABS: ALBUMIN 1.9 gm/dl (3.4-5.0); CREATININE 1.59 mg/dl (0.60-1.40); PHOSPHORUS 2.8 mg/dl (2.5-4.9); POTASSIUM 4.1 mmol/L (3.5-5.1); TOTAL PROTEIN 4.3 gm/dl (6.4-8.2)
[2018-02-08] MEDS: BOOST BREEZE NUTRITION DRINK 1 BOX PO SCH ×2 (07:51→18:51)
[2018-02-08] MEDS: DEXAMETHASONE 4 MG TAB PO SCH ×2 (07:59→20:07)
[2018-02-08] MEDS: LORATADINE 10 MG TAB PO SCH (07:59)
[2018-02-08] MEDS: ATORVASTATIN 10 MG TAB PO SCH (07:59)
[2018-02-08] MEDS: PANTOprazole SOD 40 MG TAB PO SCH (07:59)
[2018-02-08] MEDS: CALCIUM CARBONATE 1250MG TAB PO SCH ×2 (08:00→20:08)
[2018-02-08] MEDS: POTASSIUM CHLORIDE 20 MEQ TABCR PO SCH (08:01)
--- NOTE | 2018-02-08 08:25 | Family Medicine Progress Note ---
Progress Note Date of Service Feb 08, 2018. Subjective Pt evaluation today including: conversation w/ patient, physical exam, chart review, lab review Patient was sleeping when I arrived this am. No complainants overnight. Reports feeling better s/p prn paracentesis yesterday. Subjective abd distension is decreased. Reports increased anxiety. Toileting appropriately, Tolerating Diet and medications Additional Comments: Constitutional: + weakness, No fever, No chills, No sweats Respiratory: No cough, No sputum, No wheezing Cardiovascular: No chest pain, No edema, No palpitations Abdomen: + pain, No nausea, No vomiting, No diarrhea, No constipation Musculoskeletal: No joint pain, No calf pain Psychiatric: + depression symptoms, + anxiety Skin: No rash, No itch All Other Systems: Reviewed and Negative All Other Systems: Reviewed and Negative Medications Current Inpatient Medications Medications (Trade) Dose Ordered Sig/Suraj Route Start Time Stop Time Status Last Admin Dose Admin Enoxaparin Sodium (Lovenox Inj) 40 mg Q24H SQ 02/01/18 21:00 03/03/18 20:59 02/04/18 21:51 40 MG Ondansetron HCl (Zofran Inj) 4 mg Q6H PRN IV 02/01/18 18:15 03/03/18 18:14 02/08/18 07:51 4 MG Atorvastatin Calcium (Lipitor Tab) 10 mg DAILY PO 02/02/18 08:00 03/04/18 08:59 02/08/18 07:59 10 MG Dexamethasone (Decadron Tab) 2 mg BID PO 02/01/18 21:00 03/03/18 20:59 02/08/18 07:59 2 MG Loratadine (Claritin Tab) 10 mg DAILY PO 02/02/18 08:00 03/04/18 08:59 02/08/18 07:59 10 MG Montelukast Sodium (Singulair Tab) 10 mg HS PO 02/01/18 21:00 03/03/18 20:59 02/07/18 20:06 10 MG Pantoprazole Sodium (Protonix Tab) 40 mg DAILY PO 02/02/18 08:00 03/04/18 08:59 02/08/18 07:59 40 MG Mirtazapine (Remeron Tab) 30 mg HS PO 02/02/18 21:00 03/04/18 20:59 02/07/18 20:06 30 MG Ceftriaxone Sodium 2 gm/ Dextrose 50 ml @ 100 mls/hr DAILY@1400 IV 02/02/18 14:00 02/12/18 13:59 02/07/18 14:26 100 MLS/HR Lorazepam (Ativan Tab) 0.5 mg Q6 PRN PO 02/02/18 20:00 03/04/18 19:59 02/08/18 07:59 0.5 MG Potassium Chloride (Klor-Con Tab) 40 meq QAM PO 02/04/18 08:00 03/04/18 08:59 02/08/18 08:01 40 MEQ Ergocalciferol (Vitamin D Cap) 50,000 interunit Th@0900 PO 02/03/18 12:00 03/05/18 11:59 02/03/18 11:23 50,000 INTERUNIT Loperamide HCl (Imodium Cap) 2 mg Q4H PRN PO 02/03/18 08:45 03/05/18 08:44 02/08/18 07:58 2 MG Enteral Nutritional Formula (Boost Breeze Nutritional Drink) 1 box BID PO 02/03/18 20:00 03/05/18 19:59 02/08/18 07:51 1 BOX Heparin Sodium (Porcine) (Heparin 10 Unit/ ml 5 ml Flush) 5 ml PRN PRN FLUSH 02/03/18 12:30 03/05/18 12:29 02/08/18 07:51 5 ML Lorazepam (Ativan Inj) 0.5 mg QPM PRN IV 02/03/18 21:00 02/11/18 00:00 02/07/18 20:14 0.5 MG Lorazepam 0.5 mg/ Syringe 1 ml @ 1 mls/min PM PRN IV 02/03/18 19:00 03/05/18 18:59 02/06/18 23:28 1 MLS/MIN Calcium Carbonate (oS-Oli 500 TAB) 2,500 mg BID PO 02/06/18 20:00 03/05/18 19:59 02/08/18 08:00 2,500 MG Calcium Gluconate 1000 mg/Sodium Chloride 260 ml @ 260 mls/hr TODAY@1200 IV 02/07/18 12:00 03/09/18 11:59 02/07/18 12:13 260 MLS/HR Objective Vital Signs Date Time Temp Pulse Resp B/P (MAP) Pulse Ox O2 Delivery O2 Flow Rate FiO2 02/08/18 07:32 37.1 109 18 126/80 (95) 97 02/08/18 04:09 37.0 105 16 131/81 (98) 95 Room Air 02/08/18 00:30 Room Air 02/07/18 23:01 37.0 100 18 109/72 (84) 95 Room Air 02/07/18 19:24 36.6 108 18 129/80 (96) 97 Room Air 02/07/18 18:03 36.6 111 18 133/94 (107) 99 Room Air 02/07/18 17:04 37.1 98 18 101/62 (75) 95 Room Air 02/07/18 16:00 36.3 107 18 129/85 (100) 97 Room Air 02/07/18 16:00 Room Air 02/07/18 15:08 36.3 112 16 128/80 (96) 02/07/18 14:33 110 16 135/92 (106) 02/07/18 11:47 37.1 107 20 128/81 (97) 94 02/07/18 10:39 108 122/87 (99) 96 Room Air 02/07/18 08:30 Room Air Physical Exam Notes: General Appearance: WD/WN, no apparent distress Eyes: normal inspection, EOMI, sclerae normal Neck: supple, no adenopathy, thyroid normal, no JVD, no carotid bruits, trachea midline Respiratory/Chest: chest non-tender, lungs clear, normal breath sounds, no respiratory distress, no accessory muscle use Cardiovascular: no edema, no gallop, no JVD, no murmur, + tachycardia Abdomen: normal bowel sounds, no organomegaly, no pulsatile mass, + distended Extremities: normal inspection, no pedal edema, no calf tenderness, normal capillary refill, pelvis stable Neurologic/Psychiatric: no motor/sensory deficits, alert, normal mood/affect, oriented x 3 Skin: normal color, warm/dry, no rash Lymphatic: no adenopathy Laboratory Results Last Resulted 02/08/18 06:17 Red Blood Count 2.38, Mean Corpuscular Volume 88.2, Mean Corpuscular Hemoglobin 30.3, Mean Corpuscular Hemoglobin Concent 34.3, Mean Platelet Volume 8.7, Neutrophils (%) (Auto) 97.0, Lymphocytes (%) (Auto) 1.8, Monocytes (%) (Auto) 0.9, Eosinophils (%) (Auto) 0.0, Basophils (%) (Auto) 0.0, Neutrophils # (Auto) 11.55, Lymphocytes # (Auto) 0.21, Monocytes # (Auto) 0.11, Eosinophils # (Auto) 0.00, Basophils # (Auto) 0.00 Last Resulted 02/08/18 06:17 Assessment and Plan 47-year-old man with PMhx of tia, Barretts esophagus, ckd, HTN, HLD, recently dx 'd [facility] Adenocarcinoma of unknown primary source, admitted for evaluation of weakness and tremor. IV ABX to PPX against SBP and CHEMO ppx - Recent hx of paracentesis given Ca DX, ppx against sbp - F/U Cx - NGTD - today is day 6 of IV abx therapy, will remain on ppx as pt is receiving prn paracentesis Hypokalemia -trend K+ levels daily -Management per Nephro -S/P paracentesis ordered pm labs Hypomagnesemia -Trend Mg levels daily -Management per Nephro -Gave 2 MgSO4 Iv this am -S/P paracentesis ordered pm labs Hypocalcemia -Trend Ca levels daily -Management per Nephro -S/P paracentesis ordered pm labs Metastatic AdenoCarcinoma of unknown orgin -PSA negative -medical records from [facility] Obtained -Consulted Heme/Onc -biopsy @ [facility] of his duodenal ulcer revealed an adenocarcinoma -previously had minimal to no response to cisplatin and obviously tolerated it very poorly -based on bx treat him on the presumption of a duodenal or small bowel primary -Completed first round of FOLFIRI -Consulted Psych "- Increase Remeron to 30 mg. HS - No criteria for inpatient care" -Consulted Nephro" -- Ergocalciferol 55974 IU weekly -- Calcium carbonate 2,500 mg twice daily (not to be given with food) -- KCl 40 mEq daily -- Monitor metabolic profile with magnesium and phosphorus daily while inpatient -- Document I/O's -- Therapeutic paracentesis today followed by albumin infusion -- Plan of care discussed with primary service this am -- Await Oncology input" -Consulted nutrition - Continue with Regular diet - Will attempt PO supplement with Pt and monitor Pt's acceptance. - Pt agreeable to continue with snacks that had been initiated - Will continue to work with Pt and monitor Pt's labs, weights, PO intake, need for additional interventions/education -Hypoalbuminemia 2/2 AdenoCa s/p paracentesis -25 g albumin this a.m., consider a standing daily order. Hopefully excess albumin will decrease the frequency of paracentesis Acute on chronic BRYNN in the setting of ATN and tumor lysis syndrome -Nephro Consulted see above -Trending BMP -Trending PO4 -Avoid Nephrotoxic Medications Hyperlipidemia -resumed home statin Anxiety/Insomnia: -Increased prn 0.5mg ativan Q4 -gave 1 time IV 0.5mg Ativan last night. Patient said he preferred IV ativan. Orthostatic hypotension -Had code purple over the weekend -Likely 2/2 abdominal ascites hopefully will resolve s/p paracentesis -Hypotensive episodes resolved 2/2 paracentesis FULL CODE DVT: Lovenox Diet: Regular Continued [facility] stay due to: multiple IV medications needed Discharge planning: home Resident Tracking Resident Involvement: Resident Care Provided Care Provided: Adult Hospital Medicine
--- NOTE | 2018-02-08 08:26 | HEME/ONC PROGRESS NOTE ---
DATE: 02/08/2018 DIAGNOSES: 1. Metastatic colorectal cancer. 2. Hypokalemia. 3. Malignant ascites. 4. Hypomagnesemia. 5. Hypoalbuminemia. 6. Acute renal injury. 7. Anxiety/depression. SUBJECTIVE: Ashok was seen and examined at bedside this morning. Apparently 7 liters were once again removed. He continues to receive supplemental albumin which I think has been helpful. His abdomen and lower extremities look much better today. He was actually sitting at bedside, having a little breakfast. Ashok reports being able to ambulate to the bathroom without profound lightheadedness. He reports no increase in pain today. PHYSICAL EXAMINATION: GENERAL: He is in no acute distress. VITAL SIGNS: Temperature 37.1, pulse 109, respiratory rate 18, blood pressure 126/80. SKIN: Without rash or lesion. HEENT: Oral mucosa without erythema or ulceration. NECK: Supple. HEART: Regular rate and rhythm. LUNGS: Clear to auscultation. ABDOMEN: Much less distention today, soft, nontender otherwise. EXTREMITIES: Trace peripheral edema, but again vastly improved. NEUROLOGIC: Grossly intact. LABORATORY DATA: WBC count 11,910, hemoglobin 7.2, platelet count 202,000. Chemistries, sodium 139, potassium 4.1, chloride 107, carbon dioxide 24, creatinine 1.59, BUN 31, albumin 1.9 up from 1.6, magnesium 1.4. IMPRESSION: 1. Malignant ascites. 2. Hypoalbuminemia. 3. Electrolyte dysfunction. 4. Metastatic colorectal cancer. 5. Acute renal injury. 6. Failing performance status. PLAN: Ashok actually looked much improved today. He recently received his first course of FOLFIRI. Underwent a paracentesis yielding about 7 liters of fluid yesterday. He was up and eating this morning and his overall appearance (color) looks vastly improved. Hopefully, we can move forward towards discharge and have him see Dr. Carson for further outpatient chemotherapy. Hopefully, with the incorporation of albumin and chemotherapy, his reaccumulation should be slower.
[2018-02-08] MEDS ORDERED: MAGNESIUM SULFATE 1GM / D5W 100 ML IV ONE (09:30)
[2018-02-08] MEDS ORDERED: MAGNESIUM SULFATE 1GM / D5W 100 ML IV STA (10:12)
[2018-02-08] MEDS: ALBUMIN HUMAN 25% 12.5 GM/50 ML VIAL IV SCH ×2 (10:23→11:06)
--- NOTE | 2018-02-08 11:24 | Nephrology Progress Note ---
Nephrology Progress Note Date of Service Feb 08, 2018. Chief Complaint BRYNN, electrolyte abnormalities Subjective Mr. Juárez was seen & examined in his hospital room this morning. He reports 7 L paracentesis yesterday followed by 50 g IV albumin. Mr. Juárez reports that he is much more comfortable. He expresses concern over how rapidly his ascites reaccumulates Review of Systems Constitutional: No fever Cardiovascular: No chest pain Respiratory: No dyspnea at rest Abdomen: No pain, No nausea, No vomiting Extremities: + leg edema A complete review of systems was performed. Pertinent positives are noted above. All other systems are negative. Vital Signs Last 8 Hrs Date Time Temp Pulse Resp B/P (MAP) Pulse Ox O2 Delivery O2 Flow Rate FiO2 02/08/18 10:52 36.9 91 18 121/87 (98) 02/08/18 10:25 36.5 111 16 126/95 (105) 02/08/18 08:00 Room Air 02/08/18 07:32 37.1 109 18 126/80 (95) 97 02/08/18 04:09 37.0 105 16 131/81 (98) 95 Room Air Last Recorded Weight Weight (Kilograms): 101.800 Physical Exam General Appearance: no apparent distress Head: normocephalic, atraumatic Eyes: PERRL, EOMI Neck: no adenopathy, no JVD Respiratory/Chest: lungs clear, no respiratory distress Cardiovascular: regular rate, rhythm Abdomen/GI: normal bowel sounds, soft, + distended Extremities/Musculoskelatal: + pertinent finding (trace pretibial edema) Neurologic/Psych: alert, oriented x 3 Family History Stroke Social History Drug Use: none Marital Status: Housing Status: lives with family Occupation: disabled Laboratory Results Past 24 Hours 02/08/18 06:17 Red Blood Count 2.38, Mean Corpuscular Volume 88.2, Mean Corpuscular Hemoglobin 30.3, Mean Corpuscular Hemoglobin Concent 34.3, Mean Platelet Volume 8.7, Neutrophils (%) (Auto) 97.0, Lymphocytes (%) (Auto) 1.8, Monocytes (%) (Auto) 0.9, Eosinophils (%) (Auto) 0.0, Basophils (%) (Auto) 0.0, Neutrophils # (Auto) 11.55, Lymphocytes # (Auto) 0.21, Monocytes # (Auto) 0.11, Eosinophils # (Auto) 0.00, Basophils # (Auto) 0.00 02/08/18 06:17 Test 02/08/18 06:17 White Blood Count 11.91 K/uL (4.8-10.8) Red Blood Count 2.38 M/uL (4.7-6.1) Hemoglobin 7.2 g/dL (14.0-18.0) Hematocrit 21.0 % (42-52) Mean Corpuscular Volume 88.2 fL (80-100) Mean Corpuscular Hemoglobin 30.3 pg (25-34) Mean Corpuscular Hemoglobin Concent 34.3 g/dl (32-36) Platelet Count 202 K/uL (130-400) Mean Platelet Volume 8.7 fL (7.4-10.4) Neutrophils (%) (Auto) 97.0 % Lymphocytes (%) (Auto) 1.8 % Monocytes (%) (Auto) 0.9 % Eosinophils (%) (Auto) 0.0 % Basophils (%) (Auto) 0.0 % Neutrophils # (Auto) 11.55 K/uL (1.4-6.5) Lymphocytes # (Auto) 0.21 K/uL (1.2-3.4) Monocytes # (Auto) 0.11 K/uL (0.11-0.59) Eosinophils # (Auto) 0.00 K/uL (0-0.5) Basophils # (Auto) 0.00 K/uL (0-0.2) RDW Standard Deviation 47.3 fL (36.4-46.3) RDW Coefficient of Variation 15.1 % (11.5-14.5) Immature Granulocyte % (Auto) 0.3 % Immature Granulocyte # (Auto) 0.04 K/uL (0.00-0.02) Hypersegmented Polys 1+ Microcytosis PRESENT Anion Gap 9.0 mmol/L (3-11) Est Creatinine Clear Calc Drug Dose 70.5 ml/min Estimated GFR () 59.0 Estimated GFR (Non- 50.9 BUN/Creatinine Ratio 19.6 (10-20) Calcium Level 6.0 mg/dl (8.5-10.1) Phosphorus Level 2.8 mg/dl (2.5-4.9) Magnesium Level 1.4 mg/dl (1.8-2.4) Total Bilirubin 0.2 mg/dl (0.2-1) Aspartate Amino Transf (AST/SGOT) 13 U/L (15-37) Alanine Aminotransferase (ALT/SGPT) 13 U/L (12-78) Alkaline Phosphatase 454 U/L (45-117) Total Protein 4.3 gm/dl (6.4-8.2) Albumin 1.9 gm/dl (3.4-5.0) Globulin 2.4 gm/dl (2.5-4.0) Albumin/Globulin Ratio 0.8 (0.9-2) Allergies Coded Allergies: Sulfa Antibiotics (Verified Allergy, Intermediate, RASH, 02/01/18) Medications Current Inpatient Medications Medications (Trade) Dose Ordered Sig/Suraj Route Start Time Stop Time Status Last Admin Dose Admin Enoxaparin Sodium (Lovenox Inj) 40 mg Q24H SQ 02/01/18 21:00 03/03/18 20:59 02/04/18 21:51 40 MG Ondansetron HCl (Zofran Inj) 4 mg Q6H PRN IV 02/01/18 18:15 03/03/18 18:14 02/08/18 07:51 4 MG Atorvastatin Calcium (Lipitor Tab) 10 mg DAILY PO 02/02/18 08:00 03/04/18 08:59 02/08/18 07:59 10 MG Dexamethasone (Decadron Tab) 2 mg BID PO 02/01/18 21:00 03/03/18 20:59 02/08/18 07:59 2 MG Loratadine (Claritin Tab) 10 mg DAILY PO 02/02/18 08:00 03/04/18 08:59 02/08/18 07:59 10 MG Montelukast Sodium (Singulair Tab) 10 mg HS PO 02/01/18 21:00 03/03/18 20:59 02/07/18 20:06 10 MG Pantoprazole Sodium (Protonix Tab) 40 mg DAILY PO 02/02/18 08:00 03/04/18 08:59 02/08/18 07:59 40 MG Mirtazapine (Remeron Tab) 30 mg HS PO 02/02/18 21:00 03/04/18 20:59 02/07/18 20:06 30 MG Ceftriaxone Sodium 2 gm/ Dextrose 50 ml @ 100 mls/hr DAILY@1400 IV 02/02/18 14:00 02/12/18 13:59 02/07/18 14:26 100 MLS/HR Potassium Chloride (Klor-Con Tab) 40 meq QAM PO 02/04/18 08:00 03/04/18 08:59 02/08/18 08:01 40 MEQ Ergocalciferol (Vitamin D Cap) 50,000 interunit Th@0900 PO 02/03/18 12:00 03/05/18 11:59 02/03/18 11:23 50,000 INTERUNIT Loperamide HCl (Imodium Cap) 2 mg Q4H PRN PO 02/03/18 08:45 03/05/18 08:44 02/08/18 07:58 2 MG Enteral Nutritional Formula (Boost Breeze Nutritional Drink) 1 box BID PO 02/03/18 20:00 03/05/18 19:59 02/08/18 07:51 1 BOX Heparin Sodium (Porcine) (Heparin 10 Unit/ ml 5 ml Flush) 5 ml PRN PRN FLUSH 02/03/18 12:30 03/05/18 12:29 02/08/18 07:51 5 ML Lorazepam (Ativan Inj) 0.5 mg QPM PRN IV 02/03/18 21:00 02/11/18 00:00 02/07/18 20:14 0.5 MG Lorazepam 0.5 mg/ Syringe 1 ml @ 1 mls/min PM PRN IV 02/03/18 19:00 03/05/18 18:59 02/06/18 23:28 1 MLS/MIN Calcium Carbonate (oS-Oli 500 TAB) 2,500 mg BID PO 02/06/18 20:00 03/05/18 19:59 02/08/18 08:00 2,500 MG Calcium Gluconate 1000 mg/Sodium Chloride 260 ml @ 260 mls/hr TODAY@1200 IV 02/07/18 12:00 03/09/18 11:59 02/07/18 12:13 260 MLS/HR Lorazepam (Ativan Tab) 0.5 mg Q4 PRN PO 02/08/18 11:00 03/04/18 19:59 Impression (1) Hypokalemia (2) Hypocalcemia (3) Acute kidney injury (4) Hypomagnesemia Mr. Juárez is a 47-year-old male with CKD and advanced metastatic adenocarcinoma of GI primary. He is notably hypoalbuminemic with recurrent malignant ascites and pleural effusions. Complicating CKD are multiple episodes of BRYNN. This is at least partially related to prior treatment with cisplatin. Creatinine currently remains stable at 1.7-2.0 mg/dL. BP and volume status are reasonable. He has 25OH vitamin D deficiency as well as hypocalcemia. Hypomagnesemia and hypokalemia being replaced as well. Recommendations -- Ergocalciferol 41690 IU weekly -- Calcium carbonate 2,500 mg twice daily (not to be given with food) -- Will provide 1 g IV Ca Gluconate today -- KCl 40 mEq daily -- Primary service has ordered IV Mg supplementation -- Monitor metabolic profile with magnesium and phosphorus daily while inpatient -- Document I/O's -- Therapeutic paracentesis (7 L) 02/07/18 -- Await Oncology input
[2018-02-08] MEDS ORDERED: CALCIUM GLUCONATE IV SCH (13:00)
[2018-02-08] MEDS ORDERED: SODIUM CHLORIDE 0.9% IV SCH (13:00)
[2018-02-08] MEDS: CEFTRIAXONE SOD INJ 2000 MG in DEXTROSE 5% 50ML IV SCH (14:01)
[2018-02-08] MEDS: MONTELUKAST SOD 10 MG TAB PO SCH (20:07)
[2018-02-08] MEDS: MIRTAZAPINE TAB 15 MG TAB PO SCH (20:07)
[2018-02-08] MEDS: ENOXAPARIN 40 MG/0.4 ML SYR SQ SCH (20:08)
[2018-02-08] MEDS: LORAZEPAM 2 MG/ML 1 ML VIAL IV PRN (21:26)
[2018-02-09] VITALS (14 sets, daily range): BP systolic 108–187; BP diastolic 73–103; PULSE 12–113; TEMP 36.3–37.1; O2SAT 93–98
[2018-02-09 06:05] LABS: HEMATOCRIT 22.8 % (42-52); HEMOGLOBIN 7.4 g/dL (14.0-18.0); IG# 0.03 K/uL (0.00-0.02); LYMPH % 2.5 %; LYMPH ABS # 0.26 K/uL (1.2-3.4); MEAN CORPUSCULAR HEMOGLOBIN 28.6 pg (25-34); MEAN CORPUSCULAR HGB CONC 32.5 g/dl (32-36); MEAN PLATELET VOLUME 8.6 fL (7.4-10.4); MONO ABS # 0.11 K/uL (0.11-0.59); NEUT % 96.2 %; NEUT ABS # 10.12 K/uL (1.4-6.5); PLATELET COUNT 170 K/uL (130-400); RED CELL DISTRIBUTION WIDTH CV 14.9 % (11.5-14.5); RED CELL DISTRIBUTION WIDTH SD 46.6 fL (36.4-46.3); WHITE BLOOD COUNT 10.52 K/uL (4.8-10.8)
[2018-02-09 06:36] LABS: ALBUMIN 2.1 gm/dl (3.4-5.0); CALCIUM 6.4 mg/dl (8.5-10.1); CREATININE 1.46 mg/dl (0.60-1.40); TOTAL PROTEIN 4.4 gm/dl (6.4-8.2)
--- NOTE | 2018-02-09 07:08 | Family Medicine Progress Note ---
Progress Note Date of Service Feb 09, 2018. Subjective Pain: 0/10 PO Intake: Tolerating Patient reports feeling better today, however he is nervous that fluid is reaccumulating. Patient was eating breakfast when I examined him. No complaints overnight besides the hustle and bustle of the hospital. He now wants to get strong enough to go home. Patient is tolerating diet, eating and stooling appropriately. He is optimistic becoming strong enough to go home. Additional Comments: Constitutional: + weakness, No fever, No chills, No sweats Respiratory: No cough, No sputum, No wheezing Cardiovascular: No chest pain, No edema, No palpitations Abdomen: + pain, No nausea, No vomiting, No diarrhea, No constipation Musculoskeletal: No joint pain, No calf pain Psychiatric: + depression symptoms, + anxiety Skin: No rash, No itch All Other Systems: Reviewed and Negative Medications Current Inpatient Medications Medications (Trade) Dose Ordered Sig/Suraj Route Start Time Stop Time Status Last Admin Dose Admin Enoxaparin Sodium (Lovenox Inj) 40 mg Q24H SQ 02/01/18 21:00 03/03/18 20:59 02/04/18 21:51 40 MG Ondansetron HCl (Zofran Inj) 4 mg Q6H PRN IV 02/01/18 18:15 03/03/18 18:14 02/08/18 21:26 4 MG Atorvastatin Calcium (Lipitor Tab) 10 mg DAILY PO 02/02/18 08:00 03/04/18 08:59 02/08/18 07:59 10 MG Dexamethasone (Decadron Tab) 2 mg BID PO 02/01/18 21:00 03/03/18 20:59 02/08/18 20:07 2 MG Loratadine (Claritin Tab) 10 mg DAILY PO 02/02/18 08:00 03/04/18 08:59 02/08/18 07:59 10 MG Montelukast Sodium (Singulair Tab) 10 mg HS PO 02/01/18 21:00 03/03/18 20:59 02/08/18 20:07 10 MG Pantoprazole Sodium (Protonix Tab) 40 mg DAILY PO 02/02/18 08:00 03/04/18 08:59 02/08/18 07:59 40 MG Mirtazapine (Remeron Tab) 30 mg HS PO 02/02/18 21:00 03/04/18 20:59 02/08/18 20:07 30 MG Ceftriaxone Sodium 2 gm/ Dextrose 50 ml @ 100 mls/hr DAILY@1400 IV 02/02/18 14:00 02/12/18 13:59 02/08/18 14:01 100 MLS/HR Potassium Chloride (Klor-Con Tab) 40 meq QAM PO 02/04/18 08:00 03/04/18 08:59 02/08/18 08:01 40 MEQ Ergocalciferol (Vitamin D Cap) 50,000 interunit Th@0900 PO 02/03/18 12:00 03/05/18 11:59 02/03/18 11:23 50,000 INTERUNIT Loperamide HCl (Imodium Cap) 2 mg Q4H PRN PO 02/03/18 08:45 03/05/18 08:44 02/08/18 07:58 2 MG Enteral Nutritional Formula (Boost Breeze Nutritional Drink) 1 box BID PO 02/03/18 20:00 03/05/18 19:59 02/08/18 18:51 1 BOX Heparin Sodium (Porcine) (Heparin 10 Unit/ ml 5 ml Flush) 5 ml PRN PRN FLUSH 02/03/18 12:30 03/05/18 12:29 02/09/18 05:48 10 ML Lorazepam (Ativan Inj) 0.5 mg QPM PRN IV 02/03/18 21:00 02/11/18 00:00 02/08/18 21:26 0.5 MG Lorazepam 0.5 mg/ Syringe 1 ml @ 1 mls/min PM PRN IV 02/03/18 19:00 03/05/18 18:59 02/06/18 23:28 1 MLS/MIN Calcium Carbonate (oS-Oli 500 TAB) 2,500 mg BID PO 02/06/18 20:00 03/05/18 19:59 02/08/18 20:08 2,500 MG Lorazepam (Ativan Tab) 0.5 mg Q4 PRN PO 02/08/18 11:00 03/04/18 19:59 02/08/18 12:32 0.5 MG Objective Vital Signs Date Time Temp Pulse Resp B/P (MAP) Pulse Ox O2 Delivery O2 Flow Rate FiO2 02/09/18 00:01 Room Air 02/08/18 19:32 36.4 115 22 141/95 (110) 99 Room Air 02/08/18 16:00 Room Air 02/08/18 14:49 36.6 88 18 108/73 (85) 96 02/08/18 11:18 36.5 103 18 132/85 (101) 97 02/08/18 10:52 36.9 91 18 121/87 (98) 02/08/18 10:25 36.5 111 16 126/95 (105) 02/08/18 08:00 Room Air 02/08/18 07:32 37.1 109 18 126/80 (95) 97 Laboratory Results Last Resulted 02/09/18 05:51 Red Blood Count 2.59, Mean Corpuscular Volume 88.0, Mean Corpuscular Hemoglobin 28.6, Mean Corpuscular Hemoglobin Concent 32.5, Mean Platelet Volume 8.6, Neutrophils (%) (Auto) 96.2, Lymphocytes (%) (Auto) 2.5, Monocytes (%) (Auto) 1.0, Eosinophils (%) (Auto) 0.0, Basophils (%) (Auto) 0.0, Neutrophils # (Auto) 10.12, Lymphocytes # (Auto) 0.26, Monocytes # (Auto) 0.11, Eosinophils # (Auto) 0.00, Basophils # (Auto) 0.00 Last Resulted 02/09/18 05:51 Assessment and Plan 47-year-old man with PMhx of tia, Barretts esophagus, ckd, HTN, HLD, recently dx 'd [facility] Adenocarcinoma of unknown primary source, admitted for evaluation of weakness and tremor. IV ABX to PPX against SBP and CHEMO ppx - Recent hx of paracentesis given Ca DX, ppx against sbp - Cx - NGTD - today is day 7 of IV abx therapy, will remain on ppx as pt is receiving prn paracentesis Hypokalemia -trend K+ levels daily -Management per Nephro -S/P paracentesis ordered pm labs Hypomagnesemia -Trend Mg levels daily -Management per Nephro -Gave 2 MgSO4 Iv this am -S/P paracentesis ordered pm labs Hypocalcemia -Trend Ca levels daily -Management per Nephro -S/P paracentesis ordered pm labs Metastatic AdenoCarcinoma of unknown orgin -PSA negative -medical records [facility] Obtained -Consulted Heme/Onc "-biopsy @ [facility] of his duodenal ulcer revealed an adenocarcinoma -previously had minimal to no response to cisplatin and obviously tolerated it very poorly -based on bx treat him on the presumption of a duodenal or small bowel primary -Completed first round of FOLFIRI" 02/09 update - Pt feels the fluid collection has decreased. -Hopefully, chemotherapy has been effective in slowing the process. -Daily albumin and magnesium replaced today as well. -consider Van for transfusion of 2 packed units of RBCs prior to discharge. -Hopefully,over the next day or two, we can move him towards discharge to allow continuation of salvage chemotherapy. " -Consulted Psych "- Increase Remeron to 30 mg. HS - No criteria for inpatient care" -Consulted Nephro "-- Ergocalciferol 27397 IU weekly -- Calcium carbonate 2,500 mg twice daily (not to be given with food) -- KCl 40 mEq daily -- Monitor metabolic profile with magnesium and phosphorus daily while inpatient -- Document I/O's -- Therapeutic paracentesis today followed by albumin infusion -- Await Oncology input -- 02/09 Update -- Kidney function is back to baseline (creatinine 1.7 - 2.0) -- Primary service is providing IV albumin and correcting electrolytes including Mg -- Patient remains on Ergocalciferol 37016 IU weekly and calcium carbonate 2,500 mg twice daily (not to be given with food) -- No further Nephrology evaluation needed at this time. Will sign off. " -Consulted nutrition - Continue with Regular diet - Will attempt PO supplement with Pt and monitor Pt's acceptance. - Pt agreeable to continue with snacks that had been initiated - Will continue to work with Pt and monitor Pt's labs, weights, PO intake, need for additional interventions/education -Hypoalbuminemia 2/2 AdenoCa s/p paracentesis -25 g albumin this a.m., consider a standing daily order. Hopefully excess albumin will decrease the frequency of paracentesis -Transfused 2 units PRBC hopefully decreases 3rd spacing Acute on chronic BRYNN in the setting of ATN and tumor lysis syndrome -Nephro Consulted see above -Trending BMP -Trending PO4 -Avoid Nephrotoxic Medications Hyperlipidemia -resumed home statin Anxiety/Insomnia: -Increased prn 0.5mg ativan Q4 -Scheduled IV 0.5mg Ativan @ night. Patient said he preferred IV ativan. Orthostatic hypotension -Had code purple over the weekend -Likely 2/2 abdominal ascites hopefully will resolve s/p paracentesis -Hypotensive episodes resolved 2/2 paracentesis -Appears to be resolving FULL CODE DVT: Lovenox Diet: Regular Resident Physician Supervision Note: I interviewed and examined the patient. Discussed with Dr. Leon and agree with findings and plan as documented in the note. Any exceptions or clarifications are listed here: None Documented By: Hernan Piña present. both pt and pleased with progress. he feels better since last dose of chemo, fluid maybe slowly accumulating again but not nearly like before vitals noted nad breathing unlabored no pallor or icterus metastatic cancer -ongoing attempt for treatment given young age and previous good health. -ongoing inpt given need for follow for response to chemo as well as ongoing probable need for paracenteses although thus far no significant re-accumulation -continue to follow day to day - with anemia - likely will feel better as well as have better oncotic pressure (?and less third spacing) with blood - 1 unit today, if doesn't have significant swelling after, then additional unit tomorrow. Continued [facility] stay due to: multiple IV medications needed Discharge planning: home Resident Tracking Resident Involvement: Resident Care Provided Care Provided: Adult Hospital Medicine
[2018-02-09] MEDS: POTASSIUM CHLORIDE 20 MEQ TABCR PO SCH (08:53)
[2018-02-09] MEDS: DEXAMETHASONE 4 MG TAB PO SCH ×2 (08:54→20:49)
[2018-02-09] MEDS: CALCIUM CARBONATE 1250MG TAB PO SCH ×2 (08:54→20:47)
[2018-02-09] MEDS: ATORVASTATIN 10 MG TAB PO SCH (08:55)
[2018-02-09] MEDS: LORATADINE 10 MG TAB PO SCH (08:55)
--- NOTE | 2018-02-09 08:55 | HEME/ONC PROGRESS NOTE ---
DATE: 02/09/2018 DIAGNOSES: 1. Metastatic colorectal cancer. 2. Hyperkalemia. 3. Malignant ascites. 4. Hypoalbuminemia. 5. Acute renal injury. SUBJECTIVE: Ashok was seen and examined at bedside today. He believes ascites accumulation has lessened. He is tolerating his diet, moving his bowels regularly. He continues daily albumin which I believe has been helpful as well. Ashok's ambulation remains limited. He offers no complaint of pain. Nursing reports no significant overnight difficulties. PHYSICAL EXAMINATION: GENERAL: He is in no acute distress. VITAL SIGNS: Temperature 36.5, pulse 106, respiratory rate 18, blood pressure 110/73. SKIN: Without rash or lesion. HEENT: Oral mucosa without erythema or ulceration. NECK: Supple. HEART: Regular rate and rhythm. LUNGS: Clear to auscultation. ABDOMEN: Remains relatively flat today, nontender. EXTREMITIES: Trace peripheral edema. NEUROLOGICAL: Grossly intact. LABORATORY DATA: WBC count 10,520, hemoglobin 7.4, platelet count 170,000. Chemistries: Sodium 136, potassium 4.0, chloride 104, carbon dioxide 26, creatinine 1.46, BUN 31, albumin 2.1, alkaline phosphatase 419, magnesium 1.5. IMPRESSION: 1. Malignant ascites. 2. Hypoalbuminemia. 3. Hypomagnesemia. 4. Metastatic colorectal cancer. 5. Acute renal injury. PLAN: Ashok has now strong 2 good days together. He feels the fluid collection has decreased. Hopefully, chemotherapy has been effective in slowing the process. He continues daily, albumin and should have his magnesium replaced today as well. May even consider Van for transfusion of 2 packed units of RBCs prior to discharge. Overall, I am very pleased that he seems to be improving. Hopefully, over the next day or two, we can move him towards discharge to allow continuation of salvage chemotherapy. We will continue to follow Van during his hospital stay. Thank you for assisting us in the care of this very pleasant unfortunate gentleman.
[2018-02-09] MEDS: PANTOprazole SOD 40 MG TAB PO SCH (08:56)
[2018-02-09] MEDS: MAGNESIUM SULFATE 1GM / D5W 100 ML IV SCH ×2 (09:02→09:50)
[2018-02-09] MEDS: LOPERAMIDE HCL 2 MG CAP PO PRN (09:03)
[2018-02-09] MEDS: ONDANSETRON INJ 2 MG/ML 2 ML VIAL IV PRN ×2 (09:05→19:52)
[2018-02-09] MEDS: ALBUMIN HUMAN 25% 12.5 GM/50 ML VIAL IV SCH ×2 (09:08→09:50)
[2018-02-09] MEDS: BOOST BREEZE NUTRITION DRINK 1 BOX PO SCH ×2 (09:09→20:00)
[2018-02-09] MEDS: LORAZEPAM 0.5 MG TAB PO PRN (09:49)
--- NOTE | 2018-02-09 12:10 | Nephrology Progress Note ---
Nephrology Progress Note Date of Service Feb 09, 2018. Chief Complaint BRYNN, electrolyte abnormalities Subjective Mr. Juárez was seen & examined in his hospital room this morning. He voices no new medical concerns. Primary service has ordered IV albumin and electrolyte replacement this am. Review of Systems Constitutional: No fever Cardiovascular: No chest pain Respiratory: No dyspnea at rest Abdomen: No pain, No nausea, No vomiting Extremities: No leg edema A complete review of systems was performed. Pertinent positives are noted above. All other systems are negative. Vital Signs Last 8 Hrs Date Time Temp Pulse Resp B/P (MAP) Pulse Ox O2 Delivery O2 Flow Rate FiO2 02/09/18 11:40 36.5 105 18 121/86 (98) 96 Room Air 02/09/18 09:43 36.5 96 18 116/79 (91) 95 Room Air 02/09/18 09:12 36.4 103 16 108/75 (86) 98 Room Air 02/09/18 09:00 Room Air 02/09/18 07:32 36.5 106 18 110/73 (85) 93 Last Recorded Weight Weight (Kilograms): 103.000 Physical Exam General Appearance: no apparent distress Head: atraumatic Eyes: PERRL, EOMI Neck: no adenopathy Respiratory/Chest: lungs clear Cardiovascular: regular rate, rhythm Abdomen/GI: + distended (hypoactive bowel sounds) Extremities/Musculoskelatal: + swelling (trace to 1+ pretibial edema) Neurologic/Psych: alert, oriented x 3 Family History Stroke Social History Drug Use: none Marital Status: Housing Status: lives with family Occupation: disabled Laboratory Results Past 24 Hours 02/09/18 05:51 Red Blood Count 2.59, Mean Corpuscular Volume 88.0, Mean Corpuscular Hemoglobin 28.6, Mean Corpuscular Hemoglobin Concent 32.5, Mean Platelet Volume 8.6, Neutrophils (%) (Auto) 96.2, Lymphocytes (%) (Auto) 2.5, Monocytes (%) (Auto) 1.0, Eosinophils (%) (Auto) 0.0, Basophils (%) (Auto) 0.0, Neutrophils # (Auto) 10.12, Lymphocytes # (Auto) 0.26, Monocytes # (Auto) 0.11, Eosinophils # (Auto) 0.00, Basophils # (Auto) 0.00 02/09/18 05:51 Test 7/25/18 05:51 White Blood Count 10.52 K/uL (4.8-10.8) Red Blood Count 2.59 M/uL (4.7-6.1) Hemoglobin 7.4 g/dL (14.0-18.0) Hematocrit 22.8 % (42-52) Mean Corpuscular Volume 88.0 fL (80-100) Mean Corpuscular Hemoglobin 28.6 pg (25-34) Mean Corpuscular Hemoglobin Concent 32.5 g/dl (32-36) Platelet Count 170 K/uL (130-400) Mean Platelet Volume 8.6 fL (7.4-10.4) Neutrophils (%) (Auto) 96.2 % Lymphocytes (%) (Auto) 2.5 % Monocytes (%) (Auto) 1.0 % Eosinophils (%) (Auto) 0.0 % Basophils (%) (Auto) 0.0 % Neutrophils # (Auto) 10.12 K/uL (1.4-6.5) Lymphocytes # (Auto) 0.26 K/uL (1.2-3.4) Monocytes # (Auto) 0.11 K/uL (0.11-0.59) Eosinophils # (Auto) 0.00 K/uL (0-0.5) Basophils # (Auto) 0.00 K/uL (0-0.2) RDW Standard Deviation 46.6 fL (36.4-46.3) RDW Coefficient of Variation 14.9 % (11.5-14.5) Immature Granulocyte % (Auto) 0.3 % Immature Granulocyte # (Auto) 0.03 K/uL (0.00-0.02) Red Blood Cell Morphology Unremarkable Anion Gap 7.0 mmol/L (3-11) Est Creatinine Clear Calc Drug Dose 76.8 ml/min Estimated GFR () 65.4 Estimated GFR (Non- 56.5 BUN/Creatinine Ratio 21.2 (10-20) Calcium Level 6.4 mg/dl (8.5-10.1) Phosphorus Level 3.0 mg/dl (2.5-4.9) Magnesium Level 1.5 mg/dl (1.8-2.4) Total Bilirubin 0.2 mg/dl (0.2-1) Aspartate Amino Transf (AST/SGOT) 15 U/L (15-37) Alanine Aminotransferase (ALT/SGPT) 15 U/L (12-78) Alkaline Phosphatase 419 U/L (45-117) Total Protein 4.4 gm/dl (6.4-8.2) Albumin 2.1 gm/dl (3.4-5.0) Globulin 2.2 gm/dl (2.5-4.0) Albumin/Globulin Ratio 0.9 (0.9-2) Allergies Coded Allergies: Sulfa Antibiotics (Verified Allergy, Intermediate, RASH, 02/01/18) Medications Current Inpatient Medications Medications (Trade) Dose Ordered Sig/Suraj Route Start Time Stop Time Status Last Admin Dose Admin Enoxaparin Sodium (Lovenox Inj) 40 mg Q24H SQ 02/01/18 21:00 03/03/18 20:59 02/04/18 21:51 40 MG Ondansetron HCl (Zofran Inj) 4 mg Q6H PRN IV 02/01/18 18:15 03/03/18 18:14 02/09/18 09:05 4 MG Atorvastatin Calcium (Lipitor Tab) 10 mg DAILY PO 02/02/18 08:00 03/04/18 08:59 02/09/18 08:55 10 MG Dexamethasone (Decadron Tab) 2 mg BID PO 02/01/18 21:00 03/03/18 20:59 02/09/18 08:54 2 MG Loratadine (Claritin Tab) 10 mg DAILY PO 02/02/18 08:00 03/04/18 08:59 02/09/18 08:55 10 MG Montelukast Sodium (Singulair Tab) 10 mg HS PO 02/01/18 21:00 03/03/18 20:59 02/08/18 20:07 10 MG Pantoprazole Sodium (Protonix Tab) 40 mg DAILY PO 02/02/18 08:00 03/04/18 08:59 02/09/18 08:56 40 MG Mirtazapine (Remeron Tab) 30 mg HS PO 02/02/18 21:00 03/04/18 20:59 02/08/18 20:07 30 MG Ceftriaxone Sodium 2 gm/ Dextrose 50 ml @ 100 mls/hr DAILY@1400 IV 02/02/18 14:00 02/12/18 13:59 02/08/18 14:01 100 MLS/HR Potassium Chloride (Klor-Con Tab) 40 meq QAM PO 02/04/18 08:00 03/04/18 08:59 02/09/18 08:53 40 MEQ Ergocalciferol (Vitamin D Cap) 50,000 interunit Th@0900 PO 02/03/18 12:00 03/05/18 11:59 02/03/18 11:23 50,000 INTERUNIT Loperamide HCl (Imodium Cap) 2 mg Q4H PRN PO 02/03/18 08:45 03/05/18 08:44 02/09/18 09:03 2 MG Enteral Nutritional Formula (Boost Breeze Nutritional Drink) 1 box BID PO 02/03/18 20:00 03/05/18 19:59 02/09/18 09:09 1 BOX Heparin Sodium (Porcine) (Heparin 10 Unit/ ml 5 ml Flush) 5 ml PRN PRN FLUSH 02/03/18 12:30 03/05/18 12:29 02/09/18 05:48 10 ML Lorazepam (Ativan Inj) 0.5 mg QPM PRN IV 02/03/18 21:00 02/11/18 00:00 02/08/18 21:26 0.5 MG Lorazepam 0.5 mg/ Syringe 1 ml @ 1 mls/min PM PRN IV 02/03/18 19:00 03/05/18 18:59 02/06/18 23:28 1 MLS/MIN Calcium Carbonate (oS-Oli 500 TAB) 2,500 mg BID PO 02/06/18 20:00 03/05/18 19:59 02/09/18 08:54 2,500 MG Lorazepam (Ativan Tab) 0.5 mg Q4 PRN PO 02/08/18 11:00 03/04/18 19:59 02/09/18 09:49 0.5 MG Impression (1) Hypokalemia (2) Hypocalcemia (3) Acute kidney injury (4) Hypomagnesemia Mr. Juárez is a 47-year-old male with CKD and advanced metastatic adenocarcinoma of GI primary. He is notably hypoalbuminemic with recurrent malignant ascites and pleural effusions. Complicating CKD are multiple episodes of BRYNN. This is at least partially related to prior treatment with cisplatin. Creatinine currently remains stable at 1.7-2.0 mg/dL. BP and volume status are reasonable. He has 25OH vitamin D deficiency as well as hypocalcemia. Hypomagnesemia and hypokalemia being replaced as well. Recommendations -- Kidney function is back to baseline (creatinine 1.7 - 2.0) -- Primary service is providing IV albumin and correcting electrolytes including Mg -- Patient remains on Ergocalciferol 30247 IU weekly and calcium carbonate 2, 500 mg twice daily (not to be given with food) -- No further Nephrology evaluation needed at this time. Will sign off. Please call if further assistance is needed.
[2018-02-09] MEDS: CEFTRIAXONE SOD INJ 2000 MG in DEXTROSE 5% 50ML IV SCH (14:10)
[2018-02-09] MEDS: MONTELUKAST SOD 10 MG TAB PO SCH (20:47)
[2018-02-09] MEDS: MIRTAZAPINE TAB 15 MG TAB PO SCH (20:47)
[2018-02-09] MEDS: ENOXAPARIN 40 MG/0.4 ML SYR SQ SCH (20:48)
[2018-02-09] MEDS: LORAZEPAM 2 MG/ML 1 ML VIAL IV PRN (21:35)
[2018-02-10] VITALS (12 sets, daily range): BP systolic 106–135; BP diastolic 67–92; PULSE 94–111; TEMP 36.3–37.3; O2SAT 96–99
[2018-02-10 06:07] LABS: EOS % 0.1 %; EOS ABS # 0.01 K/uL (0-0.5); HEMATOCRIT 23.8 % (42-52); HEMOGLOBIN 8.1 g/dL (14.0-18.0); IG# 0.04 K/uL (0.00-0.02); LYMPH % 4.2 %; LYMPH ABS # 0.29 K/uL (1.2-3.4); MEAN CELL VOLUME 86.9 fL (80-100); MEAN CORPUSCULAR HEMOGLOBIN 29.6 pg (25-34); MEAN PLATELET VOLUME 9.1 fL (7.4-10.4); MONO % 1.6 %; MONO ABS # 0.11 K/uL (0.11-0.59); NEUT % 93.5 %; NEUT ABS # 6.43 K/uL (1.4-6.5); PLATELET COUNT 143 K/uL (130-400); RED CELL DISTRIBUTION WIDTH CV 14.9 % (11.5-14.5); RED CELL DISTRIBUTION WIDTH SD 45.5 fL (36.4-46.3); WHITE BLOOD COUNT 6.88 K/uL (4.8-10.8)
[2018-02-10 06:41] LABS: CALCIUM 6.6 mg/dl (8.5-10.1); CREATININE 1.38 mg/dl (0.60-1.40); PHOSPHORUS 2.7 mg/dl (2.5-4.9); POTASSIUM 4.1 mmol/L (3.5-5.1); TOTAL PROTEIN 4.3 gm/dl (6.4-8.2)
[2018-02-10] MEDS: BOOST BREEZE NUTRITION DRINK 1 BOX PO SCH ×2 (07:44→20:00)
[2018-02-10] MEDS: ERGOCALCIFEROL 50,000 INTER.UNIT CAP PO SCH (07:44)
[2018-02-10] MEDS: DEXAMETHASONE 4 MG TAB PO SCH ×2 (07:44→21:04)
[2018-02-10] MEDS: POTASSIUM CHLORIDE 20 MEQ TABCR PO SCH (07:44)
[2018-02-10] MEDS: LORATADINE 10 MG TAB PO SCH (07:45)
[2018-02-10] MEDS: ATORVASTATIN 10 MG TAB PO SCH (07:45)
[2018-02-10] MEDS: PANTOprazole SOD 40 MG TAB PO SCH (07:45)
[2018-02-10] MEDS: CALCIUM CARBONATE 1250MG TAB PO SCH ×2 (07:45→21:04)
--- NOTE | 2018-02-10 07:50 | Family Medicine Progress Note ---
Progress Note Date of Service Feb 10, 2018. Subjective Pain: 0/10 PO Intake: Tolerating well Patient is cautiously optimistic about prognosis. Would like to plan for D/C tomorrow. Have to address electrolyte issues, ascites, and inpatient chemo. Otherwise patient slept well, is tolerating diet, and toileting appropriately. Additional Comments: Constitutional: + weakness improving, No fever, No chills, No sweats Respiratory: No cough, No sputum, No wheezing Cardiovascular: No chest pain, No edema, No palpitations Abdomen: + pain resolved, No nausea, No vomiting, No diarrhea, No constipation Musculoskeletal: No joint pain, No calf pain Psychiatric: + depression symptoms, + anxiety Skin: No rash, No itch All Other Systems: Reviewed and Negative Medications Current Inpatient Medications Medications (Trade) Dose Ordered Sig/Suraj Route Start Time Stop Time Status Last Admin Dose Admin Enoxaparin Sodium (Lovenox Inj) 40 mg Q24H SQ 02/01/18 21:00 03/03/18 20:59 02/04/18 21:51 40 MG Ondansetron HCl (Zofran Inj) 4 mg Q6H PRN IV 02/01/18 18:15 03/03/18 18:14 02/09/18 19:52 4 MG Atorvastatin Calcium (Lipitor Tab) 10 mg DAILY PO 02/02/18 08:00 03/04/18 08:59 02/10/18 07:45 10 MG Dexamethasone (Decadron Tab) 2 mg BID PO 02/01/18 21:00 03/03/18 20:59 02/10/18 07:44 2 MG Loratadine (Claritin Tab) 10 mg DAILY PO 02/02/18 08:00 03/04/18 08:59 02/10/18 07:45 10 MG Montelukast Sodium (Singulair Tab) 10 mg HS PO 02/01/18 21:00 03/03/18 20:59 02/09/18 20:47 10 MG Pantoprazole Sodium (Protonix Tab) 40 mg DAILY PO 02/02/18 08:00 03/04/18 08:59 02/10/18 07:45 40 MG Mirtazapine (Remeron Tab) 30 mg HS PO 02/02/18 21:00 03/04/18 20:59 7/25/18 20:47 30 MG Ceftriaxone Sodium 2 gm/ Dextrose 50 ml @ 100 mls/hr DAILY@1400 IV 02/02/18 14:00 02/12/18 13:59 02/09/18 14:10 100 MLS/HR Potassium Chloride (Klor-Con Tab) 40 meq QAM PO 02/04/18 08:00 03/04/18 08:59 02/10/18 07:44 40 MEQ Ergocalciferol (Vitamin D Cap) 50,000 interunit Th@0900 PO 02/03/18 12:00 03/05/18 11:59 02/10/18 07:44 50,000 INTERUNIT Loperamide HCl (Imodium Cap) 2 mg Q4H PRN PO 02/03/18 08:45 03/05/18 08:44 02/09/18 09:03 2 MG Enteral Nutritional Formula (Boost Breeze Nutritional Drink) 1 box BID PO 02/03/18 20:00 03/05/18 19:59 02/10/18 07:44 1 BOX Heparin Sodium (Porcine) (Heparin 10 Unit/ ml 5 ml Flush) 5 ml PRN PRN FLUSH 02/03/18 12:30 03/05/18 12:29 02/10/18 05:23 5 ML Lorazepam (Ativan Inj) 0.5 mg QPM PRN IV 02/03/18 21:00 02/11/18 00:00 02/09/18 21:35 0.5 MG Lorazepam 0.5 mg/ Syringe 1 ml @ 1 mls/min PM PRN IV 02/03/18 19:00 03/05/18 18:59 02/06/18 23:28 1 MLS/MIN Calcium Carbonate (oS-Oli 500 TAB) 2,500 mg BID PO 02/06/18 20:00 03/05/18 19:59 02/10/18 07:45 2,500 MG Lorazepam (Ativan Tab) 0.5 mg Q4 PRN PO 02/08/18 11:00 03/04/18 19:59 02/09/18 09:49 0.5 MG Objective Vital Signs Date Time Temp Pulse Resp B/P (MAP) Pulse Ox O2 Delivery O2 Flow Rate FiO2 02/10/18 00:00 Room Air 02/09/18 23:00 36.6 12 18 187/90 (122) 96 Room Air 02/09/18 19:45 36.5 106 20 142/ 02/09/18 18:45 36.6 106 20 145/94 98 02/09/18 17:45 36.7 101 18 124/85 97 02/09/18 17:15 36.9 103 20 116/80 94 02/09/18 16:45 36.4 109 18 137/85 97 02/09/18 16:30 36.3 109 18 124/84 97 02/09/18 16:18 36.9 108 20 121/85 96 0.0 02/09/18 16:00 Room Air 02/09/18 15:39 36.8 113 20 139/103 (115) 97 Room Air 02/09/18 12:49 37.1 97 18 128/90 (103) 97 02/09/18 11:40 36.5 105 18 121/86 (98) 96 Room Air 02/09/18 09:43 36.5 96 18 116/79 (91) 95 Room Air 02/09/18 09:12 36.4 103 16 108/75 (86) 98 Room Air 02/09/18 09:00 Room Air Physical Exam Notes: General Appearance: WD/WN, no apparent distress Eyes: normal inspection, EOMI, sclerae normal Neck: supple, no adenopathy, thyroid normal, no JVD, no carotid bruits, trachea midline Respiratory/Chest: chest non-tender, lungs clear, normal breath sounds, no respiratory distress, no accessory muscle use Cardiovascular: no edema, no gallop, no JVD, no murmur, + tachycardia Abdomen: normal bowel sounds, no organomegaly, no pulsatile mass, + distended Extremities: normal inspection, no pedal edema, no calf tenderness, normal capillary refill, pelvis stable Neurologic/Psychiatric: no motor/sensory deficits, alert, normal mood/affect, oriented x 3 Skin: normal color, warm/dry, no rash Lymphatic: no adenopathy Laboratory Results Last Resulted 02/10/18 05:23 Red Blood Count 2.74, Mean Corpuscular Volume 86.9, Mean Corpuscular Hemoglobin 29.6, Mean Corpuscular Hemoglobin Concent 34.0, Mean Platelet Volume 9.1, Neutrophils (%) (Auto) 93.5, Lymphocytes (%) (Auto) 4.2, Monocytes (%) (Auto) 1.6, Eosinophils (%) (Auto) 0.1, Basophils (%) (Auto) 0.0, Neutrophils # (Auto) 6.43, Lymphocytes # (Auto) 0.29, Monocytes # (Auto) 0.11, Eosinophils # (Auto) 0.01, Basophils # (Auto) 0.00 Last Resulted 02/10/18 05:23 Date/Time Source Procedure Growth Status 02/01/18 14:22 Blood Blood Culture - Final NO GROWTH Complete 02/01/18 13:35 Blood Blood Culture - Final NO GROWTH Complete Assessment and Plan 47-year-old man with PMhx of tia, Barretts esophagus, ckd, HTN, HLD, recently dx 'd [facility] Adenocarcinoma of unknown primary source, admitted for evaluation of weakness and tremor. IV ABX to PPX against SBP and CHEMO ppx - Recent hx of paracentesis given Ca DX, ppx against sbp - Cx - NGTD - Will continue 1 more day. Likely for prn tap today. Hypokalemia -trend K+ levels daily -Management per Nephro -S/P paracentesis order pm labs Hypomagnesemia -Trend Mg levels daily -Management per Nephro -Gave 2 MgSO4 Iv this am -S/P paracentesis order pm labs Hypocalcemia -Trend Ca levels daily -Management per Nephro -S/P paracentesis ordered pm labs Metastatic AdenoCarcinoma of unknown orgin -Patient feels significantly better and we are planning for discharge tomorrow -Must address electrolytes, inpatient chemo, and prn paracentesis -PSA negative -medical records from [facility] Obtained -Consulted Heme/Onc "-biopsy @ [facility] of his duodenal ulcer revealed an adenocarcinoma -previously had minimal to no response to cisplatin and obviously tolerated it very poorly -based on bx treat him on the presumption of a duodenal or small bowel primary -Completed first round of FOLFIRI" 02/09 update - Pt feels the fluid collection has decreased. -Hopefully, chemotherapy has been effective in slowing the process. -Daily albumin and magnesium replaced today as well. -consider Van for transfusion of 2 packed units of RBCs prior to discharge. -Hopefully,over the next day or two, we can move him towards discharge to allow continuation of salvage chemotherapy. " -Consulted Psych "- Increase Remeron to 30 mg. HS - No criteria for inpatient care" -Consulted Nephro "-- Ergocalciferol 12388 IU weekly -- Calcium carbonate 2,500 mg twice daily (not to be given with food) -- KCl 40 mEq daily -- Monitor metabolic profile with magnesium and phosphorus daily while inpatient -- Document I/O's -- Therapeutic paracentesis today followed by albumin infusion -- Await Oncology input -- 02/09 Update -- Kidney function is back to baseline (creatinine 1.7 - 2.0) -- Primary service is providing IV albumin and correcting electrolytes including Mg -- Patient remains on Ergocalciferol 73480 IU weekly and calcium carbonate 2,500 mg twice daily (not to be given with food) -- No further Nephrology evaluation needed at this time. Will sign off. " -Consulted nutrition - Continue with Regular diet - Will attempt PO supplement with Pt and monitor Pt's acceptance. - Pt agreeable to continue with snacks that had been initiated - Will continue to work with Pt and monitor Pt's labs, weights, PO intake, need for additional interventions/education -Hypoalbuminemia 2/2 AdenoCa s/p paracentesis -25 g albumin this a.m., consider a standing daily order. Hopefully excess albumin will decrease the frequency of paracentesis -25g albumin this p.m. -25g albumin tomorrow a.m. prior to paracentesis -50 g albumin s/p paracentesis -Pending noon H/H, Plan to transfer 1 units PRBC in prep for d/c hopefully decreases 3rd spacing -Plan for paracentesis tomorrow to assess ascitic fluid accumulation and plan for discharge Acute on chronic BRYNN in the setting of ATN and tumor lysis syndrome -Nephro Consulted see above -Trending BMP -Trending PO4 -Avoid Nephrotoxic Medications Hyperlipidemia -resumed home statin Anxiety/Insomnia: -Increased prn 0.5mg ativan Q4 -Scheduled IV 0.5mg Ativan @ night. Patient said he preferred IV ativan. Orthostatic hypotension -Had code purple over the weekend -Likely 2/2 abdominal ascites hopefully will resolve s/p paracentesis -Hypotensive episodes resolved 2/2 paracentesis -Appears to be resolving FULL CODE DVT: Lovenox Diet: Regular Resident Physician Supervision Note: I interviewed and examined the patient. Discussed with Dr. Leon and agree with findings and plan as documented in the note. Any exceptions or clarifications are listed here: None Documented By: Hernan Piña feeling a little worse than this AM - feels like fluid accumulating some, felt tired on a walk. still appetite, still eating well vitals noted nad breathing unlabored no pallor or icterus metastatic cancer -ongoing attempt for treatment given young age and previous good health. -with anemia - transfuse additional 1 unit -with reaccumulation of ascites - paracentesis w albumin tomorrow -continue supportive care - possibly can get home soon if ongoing progress Resident Tracking Resident Involvement: Resident Care Provided Care Provided: Adult Hospital Medicine
[2018-02-10] MEDS: MAGNESIUM SULFATE 1GM / D5W 100 ML IV SCH ×2 (09:24→10:11)
[2018-02-10] MEDS: ALBUMIN HUMAN 25% 12.5 GM/50 ML VIAL IV SCH ×2 (09:25→10:08)
[2018-02-10 12:22] LABS: HEMATOCRIT 26.3 % (42-52); HEMOGLOBIN 8.8 g/dL (14.0-18.0)
[2018-02-10] MEDS: LORAZEPAM 0.5 MG TAB PO PRN (13:13)
[2018-02-10] MEDS: CEFTRIAXONE SOD INJ 2000 MG in DEXTROSE 5% 50ML IV SCH (13:13)
[2018-02-10] MEDS: LOPERAMIDE HCL 2 MG CAP PO PRN (13:13)
[2018-02-10] MEDS: ONDANSETRON INJ 2 MG/ML 2 ML VIAL IV PRN (18:56)
[2018-02-10] MEDS: ALBUMIN HUMAN 5% 12.5 GM/250 ML VIAL IV SCH ×2 (19:29→21:47)
[2018-02-10] MEDS: ENOXAPARIN 40 MG/0.4 ML SYR SQ SCH (21:00)
[2018-02-10] MEDS: MONTELUKAST SOD 10 MG TAB PO SCH (21:03)
[2018-02-10] MEDS: MIRTAZAPINE TAB 15 MG TAB PO SCH (21:04)
[2018-02-10] MEDS: LORAZEPAM 2 MG/ML 1 ML VIAL IV PRN (21:25)
[2018-02-11] VITALS (20 sets, daily range): BP systolic 113–150; BP diastolic 70–102; PULSE 77–114; TEMP 36.4–37.2; O2SAT 94–99
[2018-02-11 05:46] LABS: HEMATOCRIT 25.2 % (42-52); HEMOGLOBIN 8.4 g/dL (14.0-18.0); MEAN CELL VOLUME 86.9 fL (80-100); MEAN CORPUSCULAR HGB CONC 33.3 g/dl (32-36); MEAN PLATELET VOLUME 8.8 fL (7.4-10.4); PLATELET COUNT 112 K/uL (130-400); RED CELL DISTRIBUTION WIDTH CV 14.7 % (11.5-14.5); RED CELL DISTRIBUTION WIDTH SD 45.8 fL (36.4-46.3); WHITE BLOOD COUNT 7.35 K/uL (4.8-10.8)
[2018-02-11 06:20] LABS: EOS % 0.1 %; EOS ABS # 0.01 K/uL (0-0.5); IG# 0.03 K/uL (0.00-0.02); LYMPH % 4.4 %; LYMPH ABS # 0.32 K/uL (1.2-3.4); MONO % 1.8 %; MONO ABS # 0.13 K/uL (0.11-0.59); NEUT % 93.3 %; NEUT ABS # 6.86 K/uL (1.4-6.5)
[2018-02-11 06:22] LABS: ALBUMIN 2.3 gm/dl (3.4-5.0); CALCIUM 6.5 mg/dl (8.5-10.1); CREATININE 1.23 mg/dl (0.60-1.40); PHOSPHORUS 2.7 mg/dl (2.5-4.9); POTASSIUM 3.9 mmol/L (3.5-5.1); TOTAL PROTEIN 4.4 gm/dl (6.4-8.2)
[2018-02-11] MEDS: ALBUMIN HUMAN 5% 12.5 GM/250 ML VIAL IV SCH ×2 (07:39→08:50)
--- NOTE | 2018-02-11 08:17 | Family Medicine Progress Note ---
Progress Note Date of Service Feb 11, 2018. Subjective Pt evaluation today including: conversation w/ patient, conversation w/ family , physical exam, chart review, lab review, review of inpatient medication list Pain: 0/10 PO Intake: Tolerating Voiding: no voiding problems Patient was anxious about his upcoming paracentesis this a.m. Overall improving clinically. Tolerating PO diet, toileting appropriately, did not sleep well overnight 2/2 hustle and bustle of the hospital Additional Comments: Additional Comments: Constitutional: + weakness improving, No fever, No chills, No sweats Respiratory: No cough, No sputum, No wheezing Cardiovascular: No chest pain, No edema, No palpitations Abdomen: + pain resolved, No nausea, No vomiting, No diarrhea, No constipation Musculoskeletal: No joint pain, No calf pain Psychiatric: + depression symptoms, + anxiety Skin: No rash, No itch All Other Systems: Reviewed and Negative Medications Current Inpatient Medications Medications (Trade) Dose Ordered Sig/Suraj Route Start Time Stop Time Status Last Admin Dose Admin Enoxaparin Sodium (Lovenox Inj) 40 mg Q24H SQ 02/01/18 21:00 03/03/18 20:59 02/04/18 21:51 40 MG Ondansetron HCl (Zofran Inj) 4 mg Q6H PRN IV 02/01/18 18:15 03/03/18 18:14 02/10/18 18:56 4 MG Atorvastatin Calcium (Lipitor Tab) 10 mg DAILY PO 02/02/18 08:00 03/04/18 08:59 02/10/18 07:45 10 MG Dexamethasone (Decadron Tab) 2 mg BID PO 02/01/18 21:00 03/03/18 20:59 02/10/18 21:04 2 MG Loratadine (Claritin Tab) 10 mg DAILY PO 02/02/18 08:00 03/04/18 08:59 02/10/18 07:45 10 MG Montelukast Sodium (Singulair Tab) 10 mg HS PO 02/01/18 21:00 03/03/18 20:59 02/10/18 21:03 10 MG Pantoprazole Sodium (Protonix Tab) 40 mg DAILY PO 02/02/18 08:00 03/04/18 08:59 02/10/18 07:45 40 MG Mirtazapine (Remeron Tab) 30 mg HS PO 02/02/18 21:00 03/04/18 20:59 02/10/18 21:04 30 MG Ceftriaxone Sodium 2 gm/ Dextrose 50 ml @ 100 mls/hr DAILY@1400 IV 02/02/18 14:00 02/12/18 13:59 02/10/18 13:13 100 MLS/HR Potassium Chloride (Klor-Con Tab) 40 meq QAM PO 02/04/18 08:00 03/04/18 08:59 02/10/18 07:44 40 MEQ Ergocalciferol (Vitamin D Cap) 50,000 interunit Th@0900 PO 02/03/18 12:00 03/05/18 11:59 02/10/18 07:44 50,000 INTERUNIT Loperamide HCl (Imodium Cap) 2 mg Q4H PRN PO 02/03/18 08:45 03/05/18 08:44 02/10/18 13:13 2 MG Enteral Nutritional Formula (Boost Breeze Nutritional Drink) 1 box BID PO 02/03/18 20:00 03/05/18 19:59 02/10/18 07:44 1 BOX Heparin Sodium (Porcine) (Heparin 10 Unit/ ml 5 ml Flush) 5 ml PRN PRN FLUSH 02/03/18 12:30 03/05/18 12:29 02/11/18 05:26 5 ML Lorazepam 0.5 mg/ Syringe 1 ml @ 1 mls/min PM PRN IV 02/03/18 19:00 03/05/18 18:59 02/06/18 23:28 1 MLS/MIN Calcium Carbonate (oS-Oli 500 TAB) 2,500 mg BID PO 02/06/18 20:00 03/05/18 19:59 02/10/18 21:04 2,500 MG Lorazepam (Ativan Tab) 0.5 mg Q4 PRN PO 02/08/18 11:00 03/04/18 19:59 02/10/18 13:13 0.5 MG Albumin Human (Albumin 5%) 12.5 gm 0730,0830 IV 02/11/18 07:30 02/11/18 08:31 02/11/18 07:39 12.5 GM Magnesium Sulfate 100 ml @ 100 mls/hr Q1H IV 02/11/18 08:00 02/11/18 09:59 Magnesium Oxide (Mag-Ox Tab) 600 mg BID PO 02/11/18 08:00 03/13/18 07:59 UNV Objective Vital Signs Date Time Temp Pulse Resp B/P (MAP) Pulse Ox O2 Delivery O2 Flow Rate FiO2 02/11/18 07:44 36.5 88 18 132/82 (99) 98 Room Air 02/11/18 07:31 37.2 98 20 117/71 (86) 98 Room Air 02/11/18 04:43 37.1 93 24 114/74 (87) 94 Room Air 02/11/18 00:03 37.2 90 16 113/77 (89) 97 Room Air 02/11/18 00:00 Room Air 02/10/18 21:49 36.5 110 18 135/92 (106) 96 Room Air 02/10/18 19:20 36.7 100 20 113/76 97 02/10/18 18:20 36.5 111 20 123/92 98 02/10/18 17:22 37.3 111 20 130/91 99 02/10/18 17:20 37.3 111 18 130/91 99 02/10/18 16:50 37.3 94 20 117/80 97 02/10/18 16:20 36.5 101 18 116/75 97 02/10/18 16:05 36.7 99 20 114/75 97 02/10/18 16:00 Room Air 02/10/18 15:50 36.5 99 20 106/67 97 02/10/18 14:23 36.9 110 18 106/70 (82) 99 Room Air 02/10/18 09:33 37.0 95 16 121/76 (91) 97 Room Air Physical Exam Notes: General Appearance: WD/WN, no apparent distress Eyes: normal inspection, EOMI, sclerae normal Neck: supple, no adenopathy, thyroid normal, no JVD, no carotid bruits, trachea midline Respiratory/Chest: chest non-tender, lungs clear, normal breath sounds, no respiratory distress, no accessory muscle use Cardiovascular: no edema, no gallop, no JVD, no murmur, + tachycardia Abdomen: normal bowel sounds, no organomegaly, no pulsatile mass, + distended resolve s/p paracentesis Extremities: normal inspection, no pedal edema, no calf tenderness, normal capillary refill, pelvis stable Neurologic/Psychiatric: no motor/sensory deficits, alert, normal mood/affect, oriented x 3 Skin: normal color, warm/dry, no rash Lymphatic: no adenopathy Laboratory Results Results Past 24 Hours Test 02/10/18 12:14 02/11/18 05:23 02/11/18 08:03 02/11/18 08:14 Range/Units Hemoglobin 8.8 8.4 14.0-18.0 g/dL Hematocrit 26.3 25.2 42-52 % White Blood Count 7.35 4.8-10.8 K/uL Red Blood Count 2.90 4.7-6.1 M/uL Mean Corpuscular Volume 86.9 80-100 fL Mean Corpuscular Hemoglobin 29.0 25-34 pg Mean Corpuscular Hemoglobin Concent 33.3 32-36 g/dl Platelet Count 112 130-400 K/uL Mean Platelet Volume 8.8 7.4-10.4 fL Neutrophils (%) (Auto) 93.3 % Lymphocytes (%) (Auto) 4.4 % Monocytes (%) (Auto) 1.8 % Eosinophils (%) (Auto) 0.1 % Basophils (%) (Auto) 0.0 % Neutrophils # (Auto) 6.86 1.4-6.5 K/uL Lymphocytes # (Auto) 0.32 1.2-3.4 K/uL Monocytes # (Auto) 0.13 0.11-0.59 K/uL Eosinophils # (Auto) 0.01 0-0.5 K/uL Basophils # (Auto) 0.00 0-0.2 K/uL RDW Standard Deviation 45.8 36.4-46.3 fL RDW Coefficient of Variation 14.7 11.5-14.5 % Immature Granulocyte % (Auto) 0.4 % Immature Granulocyte # (Auto) 0.03 0.00-0.02 K/uL Red Blood Cell Morphology Unremarkable Sodium Level 136 136-145 mmol/L Potassium Level 3.9 3.5-5.1 mmol/L Chloride Level 105 98-107 mmol/L Carbon Dioxide Level 25 21-32 mmol/L Anion Gap 6.0 3-11 mmol/L Blood Urea Nitrogen 28 7-18 mg/dl Creatinine 1.23 0.60-1.40 mg/dl Est Creatinine Clear Calc Drug Dose 91.2 ml/min Estimated GFR () 80.5 Estimated GFR (Non- 69.5 BUN/Creatinine Ratio 22.5 10-20 Random Glucose 114 70-99 mg/dl Calcium Level 6.5 8.5-10.1 mg/dl Phosphorus Level 2.7 2.5-4.9 mg/dl Magnesium Level 1.6 1.8-2.4 mg/dl Total Bilirubin 0.3 0.2-1 mg/dl Aspartate Amino Transf (AST/SGOT) 11 15-37 U/L Alanine Aminotransferase (ALT/SGPT) 14 12-78 U/L Alkaline Phosphatase 301 45-117 U/L Total Protein 4.4 6.4-8.2 gm/dl Albumin 2.3 3.4-5.0 gm/dl Globulin 2.1 2.5-4.0 gm/dl Albumin/Globulin Ratio 1.1 0.9-2 Date/Time Source Procedure Growth Status 02/01/18 14:22 Blood Blood Culture - Final NO GROWTH Complete 02/01/18 13:35 Blood Blood Culture - Final NO GROWTH Complete Assessment and Plan 47-year-old man with PMhx of tia, Barretts esophagus, ckd, HTN, HLD, recently dx 'd [facility] Adenocarcinoma of unknown primary source, admitted for evaluation of weakness and tremor. IV ABX to PPX against SBP and CHEMO ppx - Recent hx of paracentesis given Ca DX, ppx against sbp - Cx - NGTD - Will continue until dc. - Had paracentesis today removed 3 liters ~ equals 3kg which agrees with his weight gain, weight appears to be a good clinical indicator Hypokalemia -trend K+ levels daily -s/p paracentsis labs reviewed Hypomagnesemia -Trend Mg levels daily -Management per Nephro -Gave 2 MgSO4 Iv this am -s/p paracentsis labs reviewed Hypocalcemia -Trend Ca levels daily -500 mg Ca q 2h while awake -s/p paracentsis labs reviewed -Vit D2 50,000 q week -Vit D3 2000 qday Metastatic AdenoCarcinoma of unknown orgin -Patient feels significantly better and we are planning for discharge tomorrow -Must address electrolytes, inpatient chemo, and prn paracentesis -PSA negative -Consulted Heme/Onc "-biopsy @ [facility] of his duodenal ulcer revealed an adenocarcinoma -previously had minimal to no response to cisplatin and obviously tolerated it very poorly -based on bx treat him on the presumption of a duodenal or small bowel primary -Completed first round of FOLFIRI" 02/09 update - Pt feels the fluid collection has decreased. -Hopefully, chemotherapy has been effective in slowing the process. -Daily albumin and magnesium replaced today as well. -consider Van for transfusion of 2 packed units of RBCs prior to discharge. -Hopefully,over the next day or two, we can move him towards discharge to allow continuation of salvage chemotherapy. 02/11 update - Spirits remain pretty decent considering his prolonged hospitalization. - Paracentesis will be done prior to departure. - Next round of chemotherapy is due on of next week. - Ashok believes Dr. Carson is planning for inpatient admission to carefully monitor electrolytes. - Will discuss further with Haider today. -Overall, I am cautiously optimistic, Ashok is responding partially to current treatment." -Consulted Psych "- Increase Remeron to 30 mg. HS - No criteria for inpatient care" -Consulted Nephro "-- Ergocalciferol 69010 IU weekly -- Calcium carbonate 2,500 mg twice daily (not to be given with food) -- KCl 40 mEq daily -- Monitor metabolic profile with magnesium and phosphorus daily while inpatient -- Document I/O's -- Therapeutic paracentesis today followed by albumin infusion -- Await Oncology input -- 02/09 Update -- Kidney function is back to baseline (creatinine 1.7 - 2.0) -- Primary service is providing IV albumin and correcting electrolytes including Mg -- Patient remains on Ergocalciferol 60186 IU weekly -- No further Nephrology evaluation needed at this time. Will sign off. " -Consulted nutrition - Continue with Regular diet - Will attempt PO supplement with Pt and monitor Pt's acceptance. - Pt agreeable to continue with snacks that had been initiated - Will continue to work with Pt and monitor Pt's labs, weights, PO intake, need for additional interventions/education -Hypoalbuminemia 2/2 AdenoCa s/p paracentesis -25 g albumin 02/10 a.m.,Hopefully excess albumin will decrease the frequency of paracentesis -25g albumin 02/10 p.m. -had 25g albumin prior to paracentesis -had 25 g albumin s/p paracentesis Acute on chronic BRYNN in the setting of ATN and tumor lysis syndrome -Nephro Consulted see above -Trending BMP -Trending PO4 -Avoid Nephrotoxic Medications Hyperlipidemia -resumed home statin Anxiety/Insomnia: -Increased prn 0.5mg ativan Q4 -Scheduled IV 0.5mg Ativan @ night. Patient said he preferred IV ativan. Orthostatic hypotension -Had code purple over the weekend -Likely 2/2 abdominal ascites hopefully will resolved s/p paracentesis -Hypotensive episodes resolved 2/2 paracentesis FULL CODE DVT: Lovenox Diet: Regular Resident Physician Supervision Note: I interviewed and examined the patient. Discussed with Dr. Leon and agree with findings and plan as documented in the note. Any exceptions or clarifications are listed here: None Documented By: Hernan Piña feeling fatigued. pleased that he only had 3L for paracentesis vitals noted nad breathing unlabored no pallor or icterus metastatic cancer -ongoing attempt for treatment given young age and previous good health. -with anemia - transfused 2 units. -with reaccumulation of ascites - paracentesis w albumin done earlier -continue supportive care - possibly can get home soon if ongoing progress Continued [facility] stay due to: multiple IV medications needed Discharge planning: home Resident Tracking Resident Involvement: Resident Care Provided Care Provided: Adult Hospital Medicine
[2018-02-11] MEDS: MAGNESIUM SULFATE 1GM / D5W 100 ML IV SCH ×2 (08:18→09:04)
[2018-02-11] MEDS: BOOST BREEZE NUTRITION DRINK 1 BOX PO SCH ×2 (08:22→20:00)
[2018-02-11] MEDS: POTASSIUM CHLORIDE 20 MEQ TABCR PO SCH (08:22)
--- NOTE | 2018-02-11 08:24 | HEME/ONC PROGRESS NOTE ---
DATE: 02/11/2018 DIAGNOSES: 1. Metastatic colorectal cancer. 2. Electrolyte dysfunction. 3. Malignant ascites. 4. Hypoalbuminemia. 5. Acute renal injury. SUBJECTIVE: Ashok was seen and examined at bedside today. His abdomen is slightly more distended and a paracentesis is planned with possible discharge today. Pain seems to be under control. He is tolerating his diet and nursing offers no significant overnight difficulties. PHYSICAL EXAMINATION: GENERAL: Ashok is in no acute distress. VITAL SIGNS: Temperature 36.5, pulse 88, respiratory rate 18, blood pressure 132/82. SKIN: Without rash or lesion. HEENT: Oral mucosa without erythema or ulceration. NECK: Supple. HEART: Regular rate and rhythm. LUNGS: Clear to auscultation bilaterally. ABDOMEN: Slightly more distended as compared to 2 days ago. EXTREMITIES: No clubbing, cyanosis or edema. NEUROLOGIC: Grossly intact. LABORATORY DATA: WBC count 7350, hemoglobin 8.4, platelet count 112,000. Sodium 136, potassium 3.9, chloride 105, carbon dioxide 25, BUN 28, creatinine 1.23. Magnesium remains low at 1.6, albumin 2.3, alkaline phosphatase 301. IMPRESSION: 1. Metastatic colorectal cancer. 2. Hypoalbuminemia. 3. Malignant ascites. 4. Acute renal injury. 5. Electrolyte dysfunction. PLAN: I visited with Ashok at bedside again this morning. His spirits remain pretty decent considering his prolonged hospitalization. He is possibly going home today. Paracentesis will be done prior to departure. His next round of chemotherapy is due on of next week. Ashok believes Dr. Carson is planning for inpatient admission to carefully monitor electrolytes. Will discuss further with Haider today. Overall, I am cautiously optimistic, Ashok is responding partially to current treatment.
[2018-02-11] MEDS: MAGNESIUM OXIDE 400 MG TAB PO SCH ×2 (09:02→20:23)
[2018-02-11] MEDS: ATORVASTATIN 10 MG TAB PO SCH (09:19)
[2018-02-11] MEDS: DEXAMETHASONE 4 MG TAB PO SCH ×2 (09:19→20:21)
[2018-02-11] MEDS: PANTOprazole SOD 40 MG TAB PO SCH (09:20)
[2018-02-11] MEDS: LORATADINE 10 MG TAB PO SCH (09:20)
[2018-02-11] MEDS: CALCIUM CARBONATE 1250MG TAB PO SCH ×2 (09:20→22:00)
--- NOTE | 2018-02-11 11:34 | DIAGNOSTIC IMAGING REPORT ---
PARACENTESIS ABDOMEN W/IMAGING CLINICAL HISTORY: pallative pain COMPARISON STUDY: 02/07/2018 PROCEDURE: The risks, benefits, and alternatives to the procedure were discussed with the patient including the risk of bleeding, infection and injury to adjacent structures. The patient agreed to the procedure and informed written consent was obtained. The procedure was performed by Dr. Rutledge following a time out. Following real-time ultrasound localization, the skin was prepped and draped. Following local anesthesia with Xylocaine, the sheath paracentesis needle was inserted and approximately 3 liters of straw-colored fluid was removed by vacuum suction. The patient tolerated the procedure well and no immediate complications were evident. IMPRESSION: Ultrasound-guided paracentesis with removal of 3 liters of ascites. 1 L was submitted to the lab for further evaluation. No postprocedural complications The above report was generated using voice recognition software. It may contain grammatical, syntax or spelling errors. Electronically signed by: Wang Rutledge M.D. 02/11/2018 11:32 AM Dictated Date/Time: 02/11/2018 11:31 AM
[2018-02-11 12:18] LABS: HEMATOCRIT 25.2 % (42-52); HEMOGLOBIN 8.4 g/dL (14.0-18.0); MEAN CELL VOLUME 86.9 fL (80-100); MEAN CORPUSCULAR HGB CONC 33.3 g/dl (32-36); MEAN PLATELET VOLUME 8.7 fL (7.4-10.4); PLATELET COUNT 103 K/uL (130-400); RED CELL DISTRIBUTION WIDTH CV 14.9 % (11.5-14.5); RED CELL DISTRIBUTION WIDTH SD 45.6 fL (36.4-46.3); WHITE BLOOD COUNT 5.95 K/uL (4.8-10.8)
[2018-02-11 12:55] LABS: ALBUMIN 2.6 gm/dl (3.4-5.0); CALCIUM 6.3 mg/dl (8.5-10.1); CREATININE 1.29 mg/dl (0.60-1.40); POTASSIUM 3.8 mmol/L (3.5-5.1); TOTAL PROTEIN 4.6 gm/dl (6.4-8.2)
[2018-02-11] MEDS: CEFTRIAXONE SOD INJ 2000 MG in DEXTROSE 5% 50ML IV SCH (14:15)
[2018-02-11] MEDS ORDERED: ALBUMIN HUMAN 25% 12.5 GM/50 ML VIAL IV SCH (14:15)
[2018-02-11] MEDS: LORAZEPAM 0.5 MG TAB PO PRN (14:21)
[2018-02-11] MEDS ORDERED: CALCIUM CARBONATE 1250MG TAB PO SCH (20:00)
[2018-02-11] MEDS: ENOXAPARIN 40 MG/0.4 ML SYR SQ SCH (20:13)
[2018-02-11] MEDS: MIRTAZAPINE TAB 15 MG TAB PO SCH (20:18)
[2018-02-11] MEDS: MONTELUKAST SOD 10 MG TAB PO SCH (20:20)
[2018-02-11] MEDS: LORAZEPAM INJ 0.5 MG in SYRINGE 0.75 ML IV PRN (21:16)
[2018-02-12] VITALS (9 sets, daily range): BP systolic 119–147; BP diastolic 78–94; PULSE 97–109; TEMP 36.3–36.8; O2SAT 94–98
[2018-02-12] MEDS: CALCIUM CARBONATE 1250MG TAB PO SCH ×9 (05:47→21:36)
[2018-02-12 05:56] LABS: EOS % 0.4 %; EOS ABS # 0.02 K/uL (0-0.5); HEMATOCRIT 28.3 % (42-52); HEMOGLOBIN 10.2 g/dL (14.0-18.0); IG# 0.02 K/uL (0.00-0.02); LYMPH % 7.6 %; LYMPH ABS # 0.37 K/uL (1.2-3.4); MEAN CELL VOLUME 88.2 fL (80-100); MEAN CORPUSCULAR HEMOGLOBIN 31.8 pg (25-34); MEAN PLATELET VOLUME 8.7 fL (7.4-10.4); MONO % 4.1 %; NEUT % 87.5 %; NEUT ABS # 4.29 K/uL (1.4-6.5); PLATELET COUNT 125 K/uL (130-400); RED CELL DISTRIBUTION WIDTH CV 14.7 % (11.5-14.5); RED CELL DISTRIBUTION WIDTH SD 45.6 fL (36.4-46.3)
[2018-02-12 06:28] LABS: ALBUMIN 2.6 gm/dl (3.4-5.0); CREATININE 1.15 mg/dl (0.60-1.40); PHOSPHORUS 2.8 mg/dl (2.5-4.9); POTASSIUM 4.1 mmol/L (3.5-5.1); TOTAL PROTEIN 4.8 gm/dl (6.4-8.2)
--- NOTE | 2018-02-12 07:13 | Family Medicine Progress Note ---
Progress Note Date of Service Feb 12, 2018. Subjective Pain: 0/10 PO Intake: Tolerating Voiding: no voiding problems Patient anxious about D/C elected to stay overnight concerns about reaccumulation of ascites. Eating well, sleeping well, tolerating medication Additional Comments: Constitutional: + weakness improving, No fever, No chills, No sweats Respiratory: No cough, No sputum, No wheezing Cardiovascular: No chest pain, No edema, No palpitations Abdomen: + pain resolved, No nausea, No vomiting, No diarrhea, No constipation Musculoskeletal: No joint pain, No calf pain Psychiatric: + depression symptoms, + anxiety Skin: No rash, No itch All Other Systems: Reviewed and Negative Medications Current Inpatient Medications Medications (Trade) Dose Ordered Sig/Suraj Route Start Time Stop Time Status Last Admin Dose Admin Enoxaparin Sodium (Lovenox Inj) 40 mg Q24H SQ 02/01/18 21:00 03/03/18 20:59 02/04/18 21:51 40 MG Ondansetron HCl (Zofran Inj) 4 mg Q6H PRN IV 02/01/18 18:15 03/03/18 18:14 02/10/18 18:56 4 MG Atorvastatin Calcium (Lipitor Tab) 10 mg DAILY PO 02/02/18 08:00 03/04/18 08:59 02/11/18 09:19 10 MG Dexamethasone (Decadron Tab) 2 mg BID PO 02/01/18 21:00 03/03/18 20:59 02/11/18 20:21 2 MG Loratadine (Claritin Tab) 10 mg DAILY PO 02/02/18 08:00 03/04/18 08:59 02/11/18 09:20 10 MG Montelukast Sodium (Singulair Tab) 10 mg HS PO 02/01/18 21:00 03/03/18 20:59 02/11/18 20:20 10 MG Pantoprazole Sodium (Protonix Tab) 40 mg DAILY PO 02/02/18 08:00 03/04/18 08:59 02/11/18 09:20 40 MG Mirtazapine (Remeron Tab) 30 mg HS PO 02/02/18 21:00 03/04/18 20:59 02/11/18 20:18 30 MG Ceftriaxone Sodium 2 gm/ Dextrose 50 ml @ 100 mls/hr DAILY@1400 IV 02/02/18 14:00 02/12/18 13:59 02/11/18 14:15 100 MLS/HR Potassium Chloride (Klor-Con Tab) 40 meq QAM PO 02/04/18 08:00 03/04/18 08:59 02/11/18 08:22 40 MEQ Ergocalciferol (Vitamin D Cap) 50,000 interunit Th@0900 PO 02/03/18 12:00 03/05/18 11:59 02/10/18 07:44 50,000 INTERUNIT Loperamide HCl (Imodium Cap) 2 mg Q4H PRN PO 02/03/18 08:45 03/05/18 08:44 02/10/18 13:13 2 MG Enteral Nutritional Formula (Boost Breeze Nutritional Drink) 1 box BID PO 02/03/18 20:00 03/05/18 19:59 02/11/18 08:22 1 BOX Heparin Sodium (Porcine) (Heparin 10 Unit/ ml 5 ml Flush) 5 ml PRN PRN FLUSH 02/03/18 12:30 03/05/18 12:29 02/12/18 05:41 10 ML Lorazepam 0.5 mg/ Syringe 1 ml @ 1 mls/min PM PRN IV 02/03/18 19:00 03/05/18 18:59 02/11/18 21:16 1 MLS/MIN Lorazepam (Ativan Tab) 0.5 mg Q4 PRN PO 02/08/18 11:00 03/04/18 19:59 02/11/18 14:21 0.5 MG Magnesium Oxide (Mag-Ox Tab) 600 mg BID PO 02/11/18 08:00 03/13/18 07:59 02/11/18 20:23 600 MG Cholecalciferol (Vitamin D Tab) 2,000 inter.unit QAM PO 02/12/18 08:00 03/17/18 00:00 Calcium Carbonate (oS-Oli 500 TAB) 1,250 mg Q2HWA PO 02/11/18 22:00 03/13/18 21:59 02/12/18 05:47 1,250 MG Albumin Human (Albumin 25%) 25 gm ONE ONCE IV 02/12/18 08:00 02/12/18 08:01 Objective Vital Signs Date Time Temp Pulse Resp B/P (MAP) Pulse Ox O2 Delivery O2 Flow Rate FiO2 02/12/18 00:00 Room Air 0.0 02/11/18 22:28 36.8 102 20 114/72 (86) 96 Room Air 02/11/18 20:26 126/87 (100) 02/11/18 20:00 98 Room Air 02/11/18 19:15 36.9 106 18 150/102 (118) 98 Room Air 02/11/18 16:00 37.2 92 18 118/73 (88) 98 Room Air 02/11/18 16:00 96 Room Air 02/11/18 15:45 36.7 92 18 116/72 (87) 98 Room Air 0.0 02/11/18 15:30 36.6 94 18 119/70 (86) 98 Room Air 02/11/18 15:00 36.9 93 18 116/71 (86) 98 Room Air 02/11/18 14:30 36.9 114 18 114/73 (87) 98 Room Air 0.0 02/11/18 11:00 36.9 114 18 146/96 (113) 98 Room Air 02/11/18 09:45 36.4 106 20 130/82 (98) 99 Room Air 02/11/18 09:20 36.5 100 20 136/76 (96) 99 Room Air 02/11/18 08:50 36.5 77 20 146/76 (99) 98 Room Air 0.0 02/11/18 08:30 36.5 77 18 147/70 (95) 98 Room Air 0.0 02/11/18 08:15 36.7 77 18 120/75 (90) 98 Room Air 02/11/18 08:00 36.7 77 18 116/77 (90) 98 Room Air 02/11/18 08:00 98 Room Air 0.0 02/11/18 07:44 36.5 88 18 132/82 (99) 98 Room Air 02/11/18 07:31 37.2 98 20 117/71 (86) 98 Room Air Physical Exam Notes: General Appearance: WD/WN, no apparent distress Eyes: normal inspection, EOMI, sclerae normal Neck: supple, no adenopathy, thyroid normal, no JVD, no carotid bruits, trachea midline Respiratory/Chest: chest non-tender, lungs clear, normal breath sounds, no respiratory distress, no accessory muscle use Cardiovascular: no edema, no gallop, no JVD, no murmur, + tachycardia Abdomen: normal bowel sounds, no organomegaly, no pulsatile mass, + distended resolve s/p paracentesis Extremities: normal inspection, no pedal edema, no calf tenderness, normal capillary refill, pelvis stable Neurologic/Psychiatric: no motor/sensory deficits, alert, normal mood/affect, oriented x 3 Skin: normal color, warm/dry, no rash Lymphatic: no adenopathy Laboratory Results Results Past 24 Hours Test 02/11/18 08:14 02/11/18 08:18 02/11/18 12:06 02/12/18 05:43 Range/Units Ionized Calcium 1.00 1.12-1.32 mmol/l Parathyroid Hormone (Intact) 345.3 18.4-80.1 pg/mL Albumin 2.4 2.6 2.6 3.4-5.0 gm/dl White Blood Count 5.95 4.90 4.8-10.8 K/uL Red Blood Count 2.90 3.21 4.7-6.1 M/uL Hemoglobin 8.4 10.2 14.0-18.0 g/dL Hematocrit 25.2 28.3 42-52 % Mean Corpuscular Volume 86.9 88.2 80-100 fL Mean Corpuscular Hemoglobin 29.0 31.8 25-34 pg Mean Corpuscular Hemoglobin Concent 33.3 36.0 32-36 g/dl RDW Standard Deviation 45.6 45.6 36.4-46.3 fL RDW Coefficient of Variation 14.9 14.7 11.5-14.5 % Platelet Count 103 125 130-400 K/uL Mean Platelet Volume 8.7 8.7 7.4-10.4 fL Sodium Level 137 139 136-145 mmol/L Potassium Level 3.8 4.1 3.5-5.1 mmol/L Chloride Level 105 104 98-107 mmol/L Carbon Dioxide Level 25 27 21-32 mmol/L Anion Gap 7.0 8.0 3-11 mmol/L Blood Urea Nitrogen 25 24 7-18 mg/dl Creatinine 1.29 1.15 0.60-1.40 mg/dl Est Creatinine Clear Calc Drug Dose 86.9 97.5 ml/min Estimated GFR () 76.0 87.3 Estimated GFR (Non- 65.6 75.4 BUN/Creatinine Ratio 19.8 21.1 10-20 Random Glucose 138 110 70-99 mg/dl Calcium Level 6.3 7.0 8.5-10.1 mg/dl Total Bilirubin 0.3 0.2 0.2-1 mg/dl Aspartate Amino Transf (AST/SGOT) 10 12 15-37 U/L Alanine Aminotransferase (ALT/SGPT) 15 15 12-78 U/L Alkaline Phosphatase 279 281 45-117 U/L Total Protein 4.6 4.8 6.4-8.2 gm/dl Globulin 2.0 2.2 2.5-4.0 gm/dl Albumin/Globulin Ratio 1.3 1.2 0.9-2 Neutrophils (%) (Auto) 87.5 % Lymphocytes (%) (Auto) 7.6 % Monocytes (%) (Auto) 4.1 % Eosinophils (%) (Auto) 0.4 % Basophils (%) (Auto) 0.0 % Neutrophils # (Auto) 4.29 1.4-6.5 K/uL Lymphocytes # (Auto) 0.37 1.2-3.4 K/uL Monocytes # (Auto) 0.20 0.11-0.59 K/uL Eosinophils # (Auto) 0.02 0-0.5 K/uL Basophils # (Auto) 0.00 0-0.2 K/uL Immature Granulocyte % (Auto) 0.4 % Immature Granulocyte # (Auto) 0.02 0.00-0.02 K/uL Phosphorus Level 2.8 2.5-4.9 mg/dl Magnesium Level 1.6 1.8-2.4 mg/dl Assessment and Plan 47-year-old man with PMhx of tia, Barretts esophagus, ckd, HTN, HLD, recently dx 'd eith [facility] Adenocarcinoma of unknown primary source, admitted for evaluation of weakness and tremor. IV ABX to PPX against SBP and CHEMO ppx - Recent hx of paracentesis given Ca DX, ppx against sbp - Cx - NGTD - Will continue until dc. - Had paracentesis 01/12 removed 3 liters ~ equals 3kg which agrees with his weight gain, weight appears to be a good clinical indicator - Had Abdominal U/S today : Low to moderate volume ascites, diminished in volume when compared the prior study dated 02/11/2018 Hypokalemia -Resolved -trend K+ levels daily -s/p paracentsis labs reviewed Hypomagnesemia -Mag is great today -Trend Mg levels daily -Management per Nephro -s/p paracentsis labs reviewed Hypocalcemia -Trend Ca levels daily, New Ca regimen working well -500 mg Ca q 2h while awake -s/p paracentsis labs reviewed -Vit D2 50,000 q week -Vit D3 2000 qday Metastatic AdenoCarcinoma of unknown orgin -Van was not felling as well today, likely anxious about Discharge -Must address electrolytes, inpatient chemo, and prn paracentesis -PSA negative -Consulted Heme/Onc "-biopsy @ [facility] of his duodenal ulcer revealed an adenocarcinoma -previously had minimal to no response to cisplatin and obviously tolerated it very poorly -based on bx treat him on the presumption of a duodenal or small bowel primary -Completed first round of FOLFIRI" 02/09 update - Pt feels the fluid collection has decreased. -Hopefully, chemotherapy has been effective in slowing the process. -Daily albumin and magnesium replaced today as well. -consider Van for transfusion of 2 packed units of RBCs prior to discharge. -Hopefully,over the next day or two, we can move him towards discharge to allow continuation of salvage chemotherapy. 02/11 update - Spirits remain pretty decent considering his prolonged hospitalization. - Paracentesis will be done prior to departure. - Next round of chemotherapy is due on of next week. - Ashok believes Dr. Carson is planning for inpatient admission to carefully monitor electrolytes. - Will discuss further with Haider today. -Overall, I am cautiously optimistic, Ashok is responding partially to current treatment." 02/12 Update "-Mr. Juárez looks about as strong as he has in a while. -ascites production has gone down, though that is likely due to the IV albumin. -continue with that as an outpatient, though he also needs to push with oral supplements and PO intake. -I would like to do his next cycle, due , as an outpatient. I think that will improve his mood and conditioning. -I will plan to see him twice a week for fluids and albumin, along with labs. -I asked my office to set him up to come in on Wednesday. -We will then plan for the next cycle of chemo on ." -Consulted Psych "- Increase Remeron to 30 mg. HS - No criteria for inpatient care" -Consulted Nephro "-- Ergocalciferol 64753 IU weekly -- Calcium carbonate 2,500 mg twice daily (not to be given with food) -- KCl 40 mEq daily -- Monitor metabolic profile with magnesium and phosphorus daily while inpatient -- Document I/O's -- Therapeutic paracentesis today followed by albumin infusion -- Await Oncology input -- 02/09 Update -- Kidney function is back to baseline (creatinine 1.7 - 2.0) -- Primary service is providing IV albumin and correcting electrolytes including Mg -- Patient remains on Ergocalciferol 80865 IU weekly -- No further Nephrology evaluation needed at this time. Will sign off. " -Consulted nutrition - Continue with Regular diet - Will attempt PO supplement with Pt and monitor Pt's acceptance. - Pt agreeable to continue with snacks that had been initiated - Will continue to work with Pt and monitor Pt's labs, weights, PO intake, need for additional interventions/education -Hypoalbuminemia 2/2 AdenoCa s/p paracentesis -25 g albumin 02/10 a.m.,Hopefully excess albumin will decrease the frequency of paracentesis -25g albumin 02/10 p.m. -had 25g albumin prior to paracentesis -had 25g albumin s/p paracentesis -Will Triple decadron dose in hopes it encourages nutrition and helps Van regain some strength -Consider Anti-Vegf therapy Acute on chronic BRYNN in the setting of ATN and tumor lysis syndrome -Nephro Consulted see above -Trending BMP -Trending PO4 -Avoid Nephrotoxic Medications Hyperlipidemia -resumed home statin Anxiety/Insomnia: -Increased prn 0.5mg ativan Q4 -Scheduled IV 0.5mg Ativan @ night. Patient said he preferred IV ativan. Orthostatic hypotension -Resolved -Had code purple over the weekend -Likely 2/2 abdominal ascites hopefully will resolved s/p paracentesis -Hypotensive episodes resolved 2/2 paracentesis FULL CODE DVT: Lovenox Diet: Regular Resident Physician Supervision Note: I interviewed and examined the patient. Discussed with Dr. Leon and agree with findings and plan as documented in the note. Any exceptions or clarifications are listed here: None Documented By: Hernan Piña was cautiously thinking about going home - definitely encouraging him to do so - his main concern was fatigue. then as day continued he noted a significant increase in abdominal swelling and weight up 2kg vitals noted nad breathing unlabored no pallor or icterus, distended abdomen with fluid wave metastatic cancer -ongoing attempt for treatment given young age and previous good health. -with anemia - transfused 2 units. -ascites - ?new steady state vs progressive reaccumulation -continue supportive care - encouraged looking towards home, as did , but understandably he wants to be sure of where he's at w ascites accumulation first Continued [facility] stay due to: multiple IV medications needed Discharge planning: home Resident Tracking Resident Involvement: Resident Care Provided Care Provided: Adult Hospital Medicine
[2018-02-12] MEDS: PANTOprazole SOD 40 MG TAB PO SCH (07:58)
[2018-02-12] MEDS: LORATADINE 10 MG TAB PO SCH (07:58)
[2018-02-12] MEDS: DEXAMETHASONE 4 MG TAB PO SCH (07:59)
[2018-02-12] MEDS: MAGNESIUM OXIDE 400 MG TAB PO SCH ×2 (07:59→20:05)
[2018-02-12] MEDS: POTASSIUM CHLORIDE 20 MEQ TABCR PO SCH (07:59)
[2018-02-12] MEDS ORDERED: ALBUMIN HUMAN 25% 12.5 GM/50 ML VIAL IV ONE (08:00)
[2018-02-12] MEDS: BOOST BREEZE NUTRITION DRINK 1 BOX PO SCH ×2 (08:16→18:10)
[2018-02-12] MEDS: ATORVASTATIN 10 MG TAB PO SCH (08:59)
[2018-02-12] MEDS: CHOLECALCIFEROL 1000 INTER.UNIT TAB PO SCH (08:59)
[2018-02-12] MEDS: ONDANSETRON INJ 2 MG/ML 2 ML VIAL IV PRN ×2 (09:04→18:05)
--- NOTE | 2018-02-12 10:42 | Hematology/Oncology Prog Note ---
Hematology/Onc Progress Note Date of Service Feb 12, 2018. Diagnoses Metastatic adenocarcinoma, possibly of a small bowel primary Refractory ascites Medications Medications Administered Medications (Trade) Dose Ordered Sig/Suraj Route Start Time Stop Time Status Last Admin Dose Admin Sodium Chloride 500 ml @ 999 mls/hr Q31M STAT IV 02/01/18 12:33 02/01/18 13:03 DC 02/01/18 14:00 999 MLS/HR Vancomycin HCl 1000 mg/Sodium Chloride 270 ml @ 125 mls/hr NOW STAT IV 02/01/18 14:53 02/01/18 17:02 DC 02/01/18 15:58 125 MLS/HR Piperacillin Sod/ Tazobactam Sod 3.375 gm/Dextrose 115 ml @ 230 mls/hr NOW ONCE IV 02/01/18 15:15 02/01/18 15:44 DC 02/01/18 15:29 230 MLS/HR Potassium Chloride 100 ml @ 100 mls/hr NOW STAT IV 02/01/18 15:41 02/01/18 16:40 DC 02/01/18 15:59 100 MLS/HR Magnesium Sulfate 100 ml @ 100 mls/hr NOW STAT IV 02/01/18 15:41 02/01/18 16:40 DC 02/01/18 15:59 100 MLS/HR Enoxaparin Sodium (Lovenox Inj) 40 mg Q24H SQ 02/01/18 21:00 03/03/18 20:59 02/04/18 21:51 40 MG Zolpidem Tartrate (Ambien Tab) 2.5 mg HSZ PRN PO 02/01/18 18:15 02/02/18 20:06 DC 02/01/18 23:43 2.5 MG Ondansetron HCl (Zofran Inj) 4 mg Q6H PRN IV 02/01/18 18:15 03/03/18 18:14 02/12/18 09:04 4 MG Magnesium Sulfate 100 ml @ 100 mls/hr Q1H IV 02/01/18 22:00 02/01/18 23:59 DC 02/01/18 23:48 100 MLS/HR Calcium Gluconate 2000 mg/Sodium Chloride 70 ml @ 240 mls/hr NOW ONCE IV 02/01/18 21:30 02/01/18 21:47 DC 02/01/18 22:09 240 MLS/HR Potassium Chloride (Klor-Con Tab) 20 meq TODAY@2100 ONCE PO 02/01/18 21:00 02/01/18 21:03 DC 02/01/18 21:14 20 MEQ Potassium Chloride (Klor-Con Tab) 20 meq QAM PO 02/02/18 08:00 02/03/18 08:31 DC 02/03/18 08:05 20 MEQ Atorvastatin Calcium (Lipitor Tab) 10 mg DAILY PO 02/02/18 08:00 03/04/18 08:59 02/12/18 08:59 10 MG Dexamethasone (Decadron Tab) 2 mg BID PO 02/01/18 21:00 03/03/18 20:59 02/12/18 07:59 2 MG Loratadine (Claritin Tab) 10 mg DAILY PO 02/02/18 08:00 03/04/18 08:59 02/12/18 07:58 10 MG Mirtazapine (Remeron Solutab) 15 mg HS PO 02/01/18 21:00 02/02/18 12:00 DC 02/01/18 21:14 15 MG Montelukast Sodium (Singulair Tab) 10 mg HS PO 02/01/18 21:00 03/03/18 20:59 02/11/18 20:20 10 MG Pantoprazole Sodium (Protonix Tab) 40 mg DAILY PO 02/02/18 08:00 03/04/18 08:59 02/12/18 07:58 40 MG Vancomycin HCl 1000 mg/Sodium Chloride 270 ml @ 125 mls/hr ONE ONCE IV 02/01/18 21:30 02/01/18 23:39 DC 02/01/18 22:09 125 MLS/HR Piperacillin Sod/ Tazobactam Sod 3.375 gm/Dextrose 115 ml @ 28.75 mls/ hr Q8H IV 02/01/18 22:00 02/02/18 13:13 DC 02/02/18 05:34 28.75 MLS/HR Vancomycin HCl 1500 mg/Sodium Chloride 530 ml @ 200 mls/hr Q14H IV 02/02/18 10:00 02/02/18 13:14 DC 02/02/18 09:54 200 MLS/HR Potassium Chloride (Klor-Con M10) 10 meq NOW STAT PO 02/02/18 08:48 02/02/18 08:49 DC 02/02/18 09:04 10 MEQ Calcium Gluconate 1000 mg/Sodium Chloride 60 ml @ 240 mls/hr NOW STAT IV 02/02/18 08:48 02/02/18 09:04 DC 02/02/18 09:04 240 MLS/HR Mirtazapine (Remeron Tab) 30 mg HS PO 02/02/18 21:00 03/04/18 20:59 02/11/18 20:18 30 MG Ceftriaxone Sodium 2 gm/ Dextrose 50 ml @ 100 mls/hr DAILY@1400 IV 02/02/18 14:00 02/12/18 13:59 02/11/18 14:15 100 MLS/HR Lorazepam (Ativan Tab) 0.5 mg Q6 PRN PO 02/02/18 20:00 02/08/18 10:58 DC 02/08/18 07:59 0.5 MG Lorazepam 0.5 mg/ Syringe 1 ml @ 1 mls/min NOW ONCE IV 02/02/18 20:30 02/02/18 20:31 DC 02/02/18 20:34 1 MLS/MIN Magnesium Sulfate 100 ml @ 100 mls/hr Q1H IV 02/03/18 09:00 02/03/18 10:59 DC 02/03/18 10:12 100 MLS/HR Potassium Chloride (Klor-Con Tab) 40 meq QAM PO 02/04/18 08:00 03/04/18 08:59 02/12/18 07:59 40 MEQ Potassium Chloride (Klor-Con Tab) 20 meq NOW STAT PO 02/03/18 08:31 02/03/18 08:38 DC 02/03/18 09:17 20 MEQ Ergocalciferol (Vitamin D Cap) 50,000 interunit Th@0900 PO 02/03/18 12:00 03/05/18 11:59 02/10/18 07:44 50,000 INTERUNIT Calcium Carbonate (oS-Oli 500 TAB) 1,250 mg BID PO 02/03/18 20:00 02/06/18 09:27 DC 02/06/18 08:08 1,250 MG Calcium Carbonate (oS-Oli 500 TAB) 1,250 mg TODAY@1000 ONCE PO 02/03/18 10:00 02/03/18 10:02 DC 02/03/18 11:23 1,250 MG Loperamide HCl (Imodium Cap) 2 mg Q4H PRN PO 02/03/18 08:45 03/05/18 08:44 02/10/18 13:13 2 MG Enteral Nutritional Formula (Boost Breeze Nutritional Drink) 1 box BID PO 02/03/18 20:00 03/05/18 19:59 02/12/18 08:16 1 BOX Heparin Sodium (Porcine) (Heparin 10 Unit/ ml 5 ml Flush) 5 ml PRN PRN FLUSH 02/03/18 12:30 03/05/18 12:29 02/12/18 05:41 10 ML Ondansetron HCl 16 mg/ Dexamethasone Sodium Phosphate 10 mg/Dextrose 60.5 ml @ 180 mls/hr TODAY@1330 ONCE IV 02/03/18 13:30 02/03/18 13:50 DC 02/03/18 13:40 180 MLS/HR Leucovorin Calcium 984 mg/ Dextrose 149.2 ml @ 100 mls/hr TODAY@1415 IV 02/03/18 14:15 02/03/18 23:59 DC 02/03/18 14:53 100 MLS/HR Irinotecan HCl 400 mg/Irinotecan HCl 40 mg/Dextrose 572 ml @ 380 mls/hr TODAY@1415 IV 02/03/18 14:15 02/03/18 23:59 DC 02/03/18 14:54 380 MLS/HR Fluorouracil 980 mg/Syringe 19.6 ml @ 6 mls/min TODAY@1600 IV 02/03/18 16:00 02/03/18 23:59 DC 02/03/18 16:54 6 MLS/MIN Fosaprepitant 150 mg/Sodium Chloride 150 ml @ 300 mls/hr TODAY@1330 IV 02/03/18 13:30 02/03/18 20:00 DC 02/03/18 13:40 300 MLS/HR Fluorouracil 2950 mg/Sodium Chloride 1,059 ml @ 46 mls/hr Q23H IV 02/03/18 16:20 02/05/18 14:19 DC 02/04/18 17:05 46 MLS/HR Lorazepam (Ativan Inj) 0.5 mg QPM PRN IV 02/03/18 21:00 02/11/18 00:00 DC 02/10/18 21:25 0.5 MG Lorazepam 0.5 mg/ Syringe 1 ml @ 1 mls/min PM PRN IV 02/03/18 19:00 03/05/18 18:59 02/11/18 21:16 1 MLS/MIN Magnesium Sulfate 100 ml @ 100 mls/hr Q1H IV 02/04/18 22:15 02/05/18 00:14 DC 02/04/18 23:25 100 MLS/HR Magnesium Sulfate 100 ml @ 100 mls/hr NOW STAT IV 02/05/18 08:56 02/05/18 09:55 DC 02/05/18 10:03 100 MLS/HR Calcium Gluconate 1000 mg/Sodium Chloride 60 ml @ 240 mls/hr NOW STAT IV 02/05/18 08:56 02/05/18 09:10 DC 02/05/18 10:03 240 MLS/HR Calcium Carbonate (oS-Oli 500 TAB) 2,500 mg BID PO 02/06/18 20:00 02/11/18 14:12 DC 02/11/18 09:20 2,500 MG Magnesium Sulfate 100 ml @ 100 mls/hr Q1H IV 02/06/18 10:00 02/06/18 11:59 DC 02/06/18 12:03 100 MLS/HR Calcium Gluconate 1000 mg/Sodium Chloride 260 ml @ 260 mls/hr TODAY@1200 IV 02/07/18 12:00 02/08/18 11:26 DC 02/07/18 12:13 260 MLS/HR Albumin Human (Albumin 25%) 12.5 gm TODAY@1400,1500,1600,1700 IV 02/07/18 14:00 02/07/18 23:59 DC 02/07/18 17:04 12.5 GM Magnesium Sulfate 100 ml @ 100 mls/hr TODAY@0930 ONCE IV 02/08/18 09:30 02/08/18 10:29 DC 02/08/18 10:23 100 MLS/HR Albumin Human (Albumin 25%) 12.5 gm Q1H IV 02/08/18 09:30 02/08/18 10:31 DC 02/08/18 11:06 12.5 GM Magnesium Sulfate 100 ml @ 100 mls/hr NOW STAT IV 02/08/18 10:12 02/08/18 11:11 DC 02/08/18 11:50 100 MLS/HR Lorazepam (Ativan Tab) 0.5 mg Q4 PRN PO 02/08/18 11:00 03/04/18 19:59 02/11/18 14:21 0.5 MG Calcium Gluconate 1000 mg/Sodium Chloride 160 ml @ 100 mls/hr TODAY@1300 IV 02/08/18 13:00 02/08/18 18:00 DC 02/08/18 12:29 100 MLS/HR Magnesium Sulfate 100 ml @ 100 mls/hr Q1H IV 02/09/18 08:00 02/09/18 09:59 DC 02/09/18 09:50 100 MLS/HR Albumin Human (Albumin 25%) 12.5 gm Q30M IV 02/09/18 08:00 02/09/18 08:38 DC 02/09/18 09:50 12.5 GM Magnesium Sulfate 100 ml @ 100 mls/hr Q1H IV 02/10/18 08:00 02/10/18 09:59 DC 02/10/18 10:11 100 MLS/HR Albumin Human (Albumin 25%) 12.5 gm TODAY@0800,0900 IV 02/10/18 08:00 02/10/18 18:04 DC 02/10/18 10:08 12.5 GM Albumin Human (Albumin 5%) 12.5 gm 1930,2030 IV 02/10/18 19:30 02/10/18 20:31 DC 02/10/18 21:47 12.5 GM Albumin Human (Albumin 5%) 12.5 gm 0730,0830 IV 02/11/18 07:30 02/11/18 08:31 DC 02/11/18 08:50 12.5 GM Magnesium Sulfate 100 ml @ 100 mls/hr Q1H IV 02/11/18 08:00 02/11/18 09:59 DC 02/11/18 09:04 100 MLS/HR Magnesium Oxide (Mag-Ox Tab) 600 mg BID PO 02/11/18 08:00 03/13/18 07:59 02/12/18 07:59 600 MG Albumin Human (Albumin 25%) 25 gm TODAY@1415 IV 02/11/18 14:15 02/11/18 20:00 DC 02/11/18 14:45 25 GM Cholecalciferol (Vitamin D Tab) 2,000 inter.unit QAM PO 02/12/18 08:00 03/17/18 00:00 02/12/18 08:59 2,000 INTER.UNIT Calcium Carbonate (oS-Oli 500 TAB) 1,250 mg Q2HWA PO 02/11/18 22:00 03/13/18 21:59 02/12/18 10:03 1,250 MG Albumin Human (Albumin 25%) 25 gm ONE ONCE IV 02/12/18 08:00 02/12/18 08:01 DC 02/12/18 08:17 25 GM Subjective Mr. Juárez looks pretty well today. He had a paracentesis yesterday and only got 3L of fluid out. He seems to be responding to the IV albumin replacement. He is still weak and is working with PT. Review of Systems: Constitutional: + weakness, + fatigue, No fever Respiratory: No cough, No shortness of breath Cardiovascular: No chest pain Abdomen: + problem reported (distention), No pain, No nausea Musculoskeletal: No joint pain, No muscle pain Heme: No abnormal bleeding/bruising Vital Signs Vital Signs Past 12 Hours Date Time Temp Pulse Resp B/P (MAP) Pulse Ox O2 Delivery O2 Flow Rate FiO2 02/12/18 10:00 36.6 104 18 147/94 (111) 98 Room Air 02/12/18 09:05 36.5 107 18 122/87 (99) 97 Room Air 02/12/18 08:20 36.8 97 18 119/82 (94) 98 Room Air 02/12/18 08:04 36.8 97 18 123/78 (93) 97 02/12/18 08:00 98 Room Air 02/12/18 00:00 Room Air 0.0 Physical Exam Constitutional: Level of Distress: NAD, chronically ill Psychiatric: Mental Status: active & alert Orientation: oriented except where noted Lungs: Auscuitation: breath sounds normal Cardiovascular: Heart Auscultation: RRR Abdomen: Inspection & Palpation: soft, distended Extremities: no edema Laboratory Last 24 Hours Test 02/11/18 12:06 02/12/18 05:43 White Blood Count 5.95 K/uL 4.90 K/uL Red Blood Count 2.90 M/uL 3.21 M/uL Hemoglobin 8.4 g/dL 10.2 g/dL Hematocrit 25.2 % 28.3 % Mean Corpuscular Volume 86.9 fL 88.2 fL Mean Corpuscular Hemoglobin 29.0 pg 31.8 pg Mean Corpuscular Hemoglobin Concent 33.3 g/dl 36.0 g/dl RDW Standard Deviation 45.6 fL 45.6 fL RDW Coefficient of Variation 14.9 % 14.7 % Platelet Count 103 K/uL 125 K/uL Mean Platelet Volume 8.7 fL 8.7 fL Sodium Level 137 mmol/L 139 mmol/L Potassium Level 3.8 mmol/L 4.1 mmol/L Chloride Level 105 mmol/L 104 mmol/L Carbon Dioxide Level 25 mmol/L 27 mmol/L Anion Gap 7.0 mmol/L 8.0 mmol/L Blood Urea Nitrogen 25 mg/dl 24 mg/dl Creatinine 1.29 mg/dl 1.15 mg/dl Est Creatinine Clear Calc Drug Dose 86.9 ml/min 97.5 ml/min Estimated GFR () 76.0 87.3 Estimated GFR (Non- 65.6 75.4 BUN/Creatinine Ratio 19.8 21.1 Random Glucose 138 mg/dl 110 mg/dl Calcium Level 6.3 mg/dl 7.0 mg/dl Total Bilirubin 0.3 mg/dl 0.2 mg/dl Aspartate Amino Transf (AST/SGOT) 10 U/L 12 U/L Alanine Aminotransferase (ALT/SGPT) 15 U/L 15 U/L Alkaline Phosphatase 279 U/L 281 U/L Total Protein 4.6 gm/dl 4.8 gm/dl Albumin 2.6 gm/dl 2.6 gm/dl Globulin 2.0 gm/dl 2.2 gm/dl Albumin/Globulin Ratio 1.3 1.2 Neutrophils (%) (Auto) 87.5 % Lymphocytes (%) (Auto) 7.6 % Monocytes (%) (Auto) 4.1 % Eosinophils (%) (Auto) 0.4 % Basophils (%) (Auto) 0.0 % Neutrophils # (Auto) 4.29 K/uL Lymphocytes # (Auto) 0.37 K/uL Monocytes # (Auto) 0.20 K/uL Eosinophils # (Auto) 0.02 K/uL Basophils # (Auto) 0.00 K/uL Immature Granulocyte % (Auto) 0.4 % Immature Granulocyte # (Auto) 0.02 K/uL Phosphorus Level 2.8 mg/dl Magnesium Level 1.6 mg/dl 25-Hydroxy Vitamin D Total 8.7 ng/ml Assessment & Plan Mr. Juárez looks about as strong as he has in a while. His ascites production has gone down, though that is likely due to the IV albumin. We can continue with that as an outpatient, though he also needs to push with oral supplements and PO intake. I would like to do his next cycle, due , as an outpatient. I think that will improve his mood and conditioning. I will plan to see him twice a week for fluids and albumin, along with labs. I asked my office to set him up to come in on Wednesday. We will then plan for the next cycle of chemo on .
[2018-02-12] MEDS: LORAZEPAM 0.5 MG TAB PO PRN (14:44)
--- NOTE | 2018-02-12 17:40 | DIAGNOSTIC IMAGING REPORT ---
LIMITED ABDOMINAL ULTRASOUND FOR ASCITES EVALUATION CLINICAL HISTORY: Ascites. Pain. COMPARISON STUDY: 02/11/2018 FINDINGS: A four-quadrant ultrasound survey was performed. There is low to moderate volume ascites, diminished when compared the prior study dated 02/11/2018 IMPRESSION: Low to moderate volume ascites, diminished in volume when compared the prior study dated 02/11/2018 Electronically signed by: Trey Villarreal M.D. 02/12/2018 5:38 PM Dictated Date/Time: 02/12/2018 5:36 PM
[2018-02-12] MEDS ORDERED: CALCIUM CARBONATE 500 MG CHEWABLE PO SCH (20:00)
[2018-02-12] MEDS ORDERED: DEXAMETHASONE 4 MG TAB PO SCH ×2 (20:00)
[2018-02-12] MEDS: MONTELUKAST SOD 10 MG TAB PO SCH (20:02)
[2018-02-12] MEDS: MIRTAZAPINE TAB 15 MG TAB PO SCH (20:02)
[2018-02-12] MEDS: ENOXAPARIN 40 MG/0.4 ML SYR SQ SCH (20:02)
[2018-02-12] MEDS ORDERED: METHYLPHENIDATE HCL 5 MG TAB PO PRN (20:15)
[2018-02-12] MEDS ORDERED: DEXAMETHASONE 1 MG TAB PO SCH (21:00)
[2018-02-12] MEDS: LORAZEPAM INJ 0.5 MG in SYRINGE 0.75 ML IV PRN (21:36)
[2018-02-13] MEDS ORDERED: ONDANSETRON 4 MG TAB PO SCH
[2018-02-13] MEDS: CALCIUM CARBONATE 1250MG TAB PO SCH ×6 (06:00→15:50)
[2018-02-13 07:15] LABS: EOS % 1.7 %; EOS ABS # 0.05 K/uL (0-0.5); HEMATOCRIT 26.7 % (42-52); HEMOGLOBIN 8.7 g/dL (14.0-18.0); IG# 0.02 K/uL (0.00-0.02); LYMPH % 11.2 %; LYMPH ABS # 0.33 K/uL (1.2-3.4); MEAN CELL VOLUME 90.2 fL (80-100); MEAN CORPUSCULAR HEMOGLOBIN 29.4 pg (25-34); MEAN CORPUSCULAR HGB CONC 32.6 g/dl (32-36); MEAN PLATELET VOLUME 9.3 fL (7.4-10.4); MONO % 6.8 %; NEUT % 79.6 %; NEUT ABS # 2.34 K/uL (1.4-6.5); NUCLEATED RED BLOOD CELL ABS 0.02 K/uL (0-0); PLATELET COUNT 113 K/uL (130-400); RED CELL DISTRIBUTION WIDTH CV 15.8 % (11.5-14.5); RED CELL DISTRIBUTION WIDTH SD 48.3 fL (36.4-46.3); WHITE BLOOD COUNT 2.94 K/uL (4.8-10.8)
[2018-02-13 07:16] LABS: ALBUMIN 2.2 gm/dl (3.4-5.0); CALCIUM 6.8 mg/dl (8.5-10.1); CREATININE 1.36 mg/dl (0.60-1.40); PHOSPHORUS 2.9 mg/dl (2.5-4.9); POTASSIUM 4.2 mmol/L (3.5-5.1); TOTAL PROTEIN 4.4 gm/dl (6.4-8.2)
--- NOTE | 2018-02-13 07:49 | Family Medicine Progress Note ---
Progress Note Date of Service Feb 13, 2018. Medications Current Inpatient Medications Medications (Trade) Dose Ordered Sig/Suraj Route Start Time Stop Time Status Last Admin Dose Admin Enoxaparin Sodium (Lovenox Inj) 40 mg Q24H SQ 02/01/18 21:00 03/03/18 20:59 02/12/18 20:02 40 MG Ondansetron HCl (Zofran Inj) 4 mg Q6H PRN IV 02/01/18 18:15 03/03/18 18:14 02/12/18 18:05 4 MG Atorvastatin Calcium (Lipitor Tab) 10 mg DAILY PO 02/02/18 08:00 03/04/18 08:59 02/12/18 08:59 10 MG Loratadine (Claritin Tab) 10 mg DAILY PO 02/02/18 08:00 03/04/18 08:59 02/12/18 07:58 10 MG Montelukast Sodium (Singulair Tab) 10 mg HS PO 02/01/18 21:00 03/03/18 20:59 02/12/18 20:02 10 MG Pantoprazole Sodium (Protonix Tab) 40 mg DAILY PO 02/02/18 08:00 03/04/18 08:59 02/12/18 07:58 40 MG Mirtazapine (Remeron Tab) 30 mg HS PO 02/02/18 21:00 03/04/18 20:59 02/12/18 20:02 30 MG Potassium Chloride (Klor-Con Tab) 40 meq QAM PO 02/04/18 08:00 03/04/18 08:59 02/12/18 07:59 40 MEQ Ergocalciferol (Vitamin D Cap) 50,000 interunit Th@0900 PO 02/03/18 12:00 03/05/18 11:59 02/10/18 07:44 50,000 INTERUNIT Loperamide HCl (Imodium Cap) 2 mg Q4H PRN PO 02/03/18 08:45 03/05/18 08:44 02/10/18 13:13 2 MG Enteral Nutritional Formula (Boost Breeze Nutritional Drink) 1 box BID PO 02/03/18 20:00 03/05/18 19:59 02/12/18 18:10 1 BOX Heparin Sodium (Porcine) (Heparin 10 Unit/ ml 5 ml Flush) 5 ml PRN PRN FLUSH 02/03/18 12:30 03/05/18 12:29 02/13/18 06:07 10 ML Lorazepam 0.5 mg/ Syringe 1 ml @ 1 mls/min PM PRN IV 02/03/18 19:00 03/05/18 18:59 02/12/18 21:36 1 MLS/MIN Lorazepam (Ativan Tab) 0.5 mg Q4 PRN PO 02/08/18 11:00 03/04/18 19:59 02/12/18 14:44 0.5 MG Magnesium Oxide (Mag-Ox Tab) 600 mg BID PO 02/11/18 08:00 03/13/18 07:59 02/12/18 20:05 600 MG Cholecalciferol (Vitamin D Tab) 2,000 inter.unit QAM PO 02/12/18 08:00 03/17/18 00:00 02/12/18 08:59 2,000 INTER.UNIT Calcium Carbonate (oS-Oli 500 TAB) 1,250 mg Q2HWA PO 02/11/18 22:00 03/13/18 21:59 02/12/18 21:36 1,250 MG Dexamethasone (Decadron Tab) 2 mg HS PO 02/12/18 21:00 03/14/18 20:59 02/12/18 21:36 2 MG Dexamethasone (Decadron Tab) 6 mg QAM PO 02/13/18 08:00 03/15/18 07:59 Objective Vital Signs Date Time Temp Pulse Resp B/P (MAP) Pulse Ox O2 Delivery O2 Flow Rate FiO2 02/13/18 00:10 Room Air 02/12/18 22:46 02/12/18 19:12 36.4 109 18 136/91 (106) 97 Room Air 02/12/18 16:00 Room Air 02/12/18 15:25 36.3 103 18 132/90 (104) 97 Room Air 02/12/18 11:30 36.6 100 18 140/90 (107) 94 02/12/18 10:50 36.6 104 18 98 Room Air 02/12/18 10:00 36.6 104 18 147/94 (111) 98 Room Air 02/12/18 09:05 36.5 107 18 122/87 (99) 97 Room Air 02/12/18 08:20 36.8 97 18 119/82 (94) 98 Room Air 02/12/18 08:04 36.8 97 18 123/78 (93) 97 02/12/18 08:00 98 Room Air Laboratory Results Results Past 24 Hours Test 02/12/18 20:15 02/13/18 06:11 Range/Units Free Thyroxine 0.99 0.80-1.60 ng/dl Free Triiodothyronine 2.73 2.30-4.20 pg/ml Total Testosterone 92.3 ng/dl White Blood Count 2.94 4.8-10.8 K/uL Red Blood Count 2.96 4.7-6.1 M/uL Hemoglobin 8.7 14.0-18.0 g/dL Hematocrit 26.7 42-52 % Mean Corpuscular Volume 90.2 80-100 fL Mean Corpuscular Hemoglobin 29.4 25-34 pg Mean Corpuscular Hemoglobin Concent 32.6 32-36 g/dl Platelet Count 113 130-400 K/uL Mean Platelet Volume 9.3 7.4-10.4 fL Neutrophils (%) (Auto) 79.6 % Lymphocytes (%) (Auto) 11.2 % Monocytes (%) (Auto) 6.8 % Eosinophils (%) (Auto) 1.7 % Basophils (%) (Auto) 0.0 % Neutrophils # (Auto) 2.34 1.4-6.5 K/uL Lymphocytes # (Auto) 0.33 1.2-3.4 K/uL Monocytes # (Auto) 0.20 0.11-0.59 K/uL Eosinophils # (Auto) 0.05 0-0.5 K/uL Basophils # (Auto) 0.00 0-0.2 K/uL RDW Standard Deviation 48.3 36.4-46.3 fL RDW Coefficient of Variation 15.8 11.5-14.5 % Immature Granulocyte % (Auto) 0.7 % Immature Granulocyte # (Auto) 0.02 0.00-0.02 K/uL Nucleated RBC Absolute Count (auto) 0.02 0-0 K/uL Nucleated Red Blood Cells % 0.6 % Sodium Level 138 136-145 mmol/L Potassium Level 4.2 3.5-5.1 mmol/L Chloride Level 106 98-107 mmol/L Carbon Dioxide Level 25 21-32 mmol/L Anion Gap 7.0 3-11 mmol/L Blood Urea Nitrogen 25 7-18 mg/dl Creatinine 1.36 0.60-1.40 mg/dl Est Creatinine Clear Calc Drug Dose 89.9 ml/min Estimated GFR () 71.3 Estimated GFR (Non- 61.5 BUN/Creatinine Ratio 18.2 10-20 Random Glucose 100 70-99 mg/dl Calcium Level 6.8 8.5-10.1 mg/dl Ionized Calcium 1.05 1.12-1.32 mmol/l Phosphorus Level 2.9 2.5-4.9 mg/dl Magnesium Level 1.5 1.8-2.4 mg/dl Total Bilirubin 0.3 0.2-1 mg/dl Aspartate Amino Transf (AST/SGOT) 10 15-37 U/L Alanine Aminotransferase (ALT/SGPT) 14 12-78 U/L Alkaline Phosphatase 244 45-117 U/L Total Protein 4.4 6.4-8.2 gm/dl Albumin 2.2 3.4-5.0 gm/dl Globulin 2.2 2.5-4.0 gm/dl Albumin/Globulin Ratio 1.0 0.9-2 Thyroid Stimulating Hormone (TSH) 1.650 0.300-4.500 uIu/ml Date/Time Source Procedure Growth Status 02/01/18 14:22 Blood Blood Culture - Final NO GROWTH Complete 02/01/18 13:35 Blood Blood Culture - Final NO GROWTH Complete Assessment and Plan 47-year-old man with PMhx of tia, Barretts esophagus, ckd, HTN, HLD, recently dx 'd [facility] Adenocarcinoma of unknown primary source, admitted for evaluation of weakness and tremor. IV ABX to PPX against SBP and CHEMO ppx - Recent hx of paracentesis given Ca DX, ppx against sbp - Cx - NGTD - Will continue until dc. - Had paracentesis 01/12 removed 3 liters ~ equals 3kg which agrees with his weight gain, weight appears to be a good clinical indicator - Had Abdominal U/S today : Low to moderate volume ascites, diminished in volume when compared the prior study dated 02/11/2018 Hypokalemia -Resolved -trend K+ levels daily -s/p paracentsis labs reviewed Hypomagnesemia -Mag is great today -Trend Mg levels daily -Management per Nephro -s/p paracentsis labs reviewed Hypocalcemia -Trend Ca levels daily, New Ca regimen working well -500 mg Ca q 2h while awake -s/p paracentsis labs reviewed -Vit D2 50,000 q week -Vit D3 2000 qday Metastatic AdenoCarcinoma of unknown orgin -Van was not felling as well today, likely anxious about Discharge -Must address electrolytes, inpatient chemo, and prn paracentesis -PSA negative -Consulted Heme/Onc "-biopsy @ [facility] of his duodenal ulcer revealed an adenocarcinoma -previously had minimal to no response to cisplatin and obviously tolerated it very poorly -based on bx treat him on the presumption of a duodenal or small bowel primary -Completed first round of FOLFIRI" 02/09 update - Pt feels the fluid collection has decreased. -Hopefully, chemotherapy has been effective in slowing the process. -Daily albumin and magnesium replaced today as well. -consider Van for transfusion of 2 packed units of RBCs prior to discharge. -Hopefully,over the next day or two, we can move him towards discharge to allow continuation of salvage chemotherapy. 02/11 update - Spirits remain pretty decent considering his prolonged hospitalization. - Paracentesis will be done prior to departure. - Next round of chemotherapy is due on of next week. - Ashok believes Dr. Carson is planning for inpatient admission to carefully monitor electrolytes. - Will discuss further with Haider today. -Overall, I am cautiously optimistic, Ashok is responding partially to current treatment." 02/12 Update "-Mr. Juráez looks about as strong as he has in a while. -ascites production has gone down, though that is likely due to the IV albumin. -continue with that as an outpatient, though he also needs to push with oral supplements and PO intake. -I would like to do his next cycle, due , as an outpatient. I think that will improve his mood and conditioning. -I will plan to see him twice a week for fluids and albumin, along with labs. -I asked my office to set him up to come in on Wednesday. -We will then plan for the next cycle of chemo on ." -Consulted Psych "- Increase Remeron to 30 mg. HS - No criteria for inpatient care" -Consulted Nephro "-- Ergocalciferol 11041 IU weekly -- Calcium carbonate 2,500 mg twice daily (not to be given with food) -- KCl 40 mEq daily -- Monitor metabolic profile with magnesium and phosphorus daily while inpatient -- Document I/O's -- Therapeutic paracentesis today followed by albumin infusion -- Await Oncology input -- 02/09 Update -- Kidney function is back to baseline (creatinine 1.7 - 2.0) -- Primary service is providing IV albumin and correcting electrolytes including Mg -- Patient remains on Ergocalciferol 51060 IU weekly -- No further Nephrology evaluation needed at this time. Will sign off. " -Consulted nutrition - Continue with Regular diet - Will attempt PO supplement with Pt and monitor Pt's acceptance. - Pt agreeable to continue with snacks that had been initiated - Will continue to work with Pt and monitor Pt's labs, weights, PO intake, need for additional interventions/education -Hypoalbuminemia 2/2 AdenoCa s/p paracentesis -25 g albumin 02/10 a.m.,Hopefully excess albumin will decrease the frequency of paracentesis -25g albumin 02/10 p.m. -02/11 had 25g albumin prior to paracentesis -02/11 had 25g albumin s/p paracentesis -Will Triple decadron dose in hopes it encourages nutrition and helps Van regain some strength -Discussed the use of methylphenidate with Van to alleviate Psychomotor retardation. There is a great deal of evidence suggesting benefit in patients with significant tumor burden. Discussed the risk and benefits of therapy. Offered Van the option to try 5 mg qam and qnoon prn as tolerated. He elected to try therapy and I agree this may be beneficial (DOI:10.05090/ [email or web address].[email or web address] amongst others) -Consider Anti-Vegf therapy Acute on chronic BRYNN in the setting of ATN and tumor lysis syndrome -Nephro Consulted see above -Trending BMP -Trending PO4 -Avoid Nephrotoxic Medications Hyperlipidemia -resumed home statin Anxiety/Insomnia: -Increased prn 0.5mg ativan Q4 -Scheduled IV 0.5mg Ativan @ night. Patient said he preferred IV ativan. Orthostatic hypotension -Resolved -Had code purple over the weekend -Likely 2/2 abdominal ascites hopefully will resolved s/p paracentesis -Hypotensive episodes resolved 2/2 paracentesis FULL CODE DVT: Lovenox Diet: Regular Resident Tracking Resident Involvement: Resident Care Provided Care Provided: Adult Hospital Medicine
[2018-02-13 08:00] VITALS: O2SAT 98
[2018-02-13] MEDS ORDERED: DEXAMETHASONE 4 MG TAB PO SCH (08:00)
[2018-02-13] MEDS: PANTOprazole SOD 40 MG TAB PO SCH (08:07)
[2018-02-13] MEDS: BOOST BREEZE NUTRITION DRINK 1 BOX PO SCH (08:07)
[2018-02-13] MEDS: MAGNESIUM OXIDE 400 MG TAB PO SCH (08:07)
[2018-02-13] MEDS: POTASSIUM CHLORIDE 20 MEQ TABCR PO SCH (08:07)
[2018-02-13] MEDS: ATORVASTATIN 10 MG TAB PO SCH (08:08)
[2018-02-13] MEDS: LORATADINE 10 MG TAB PO SCH (08:08)
[2018-02-13] MEDS: CHOLECALCIFEROL 1000 INTER.UNIT TAB PO SCH (08:08)
[2018-02-13 08:30] VITALS: BP 132/96; PULSE 110; TEMP 36.8; O2SAT 97
[2018-02-13] MEDS: LOPERAMIDE HCL 2 MG CAP PO PRN (09:41)
[2018-02-13] MEDS: LORAZEPAM 0.5 MG TAB PO PRN (09:43)
[2018-02-13 11:17] VITALS: BP 126/88; PULSE 98; TEMP 36.8; O2SAT 97
[2018-02-13] MEDS ORDERED: METHYLPHENIDATE HCL 10 MG TAB PO PRN (14:15)
[2018-02-13] MEDS ORDERED: ATV5 PO (14:56)
[2018-02-13] MEDS ORDERED: MCRK20 PO (14:56)
[2018-02-13] MEDS ORDERED: MGNO400 PO (14:56)
[2018-02-13] MEDS ORDERED: METO-157 PO (14:56)
[2018-02-13] MEDS ORDERED: CLCC1250 PO (14:56)
[2018-02-13] MEDS ORDERED: VTMD1000 PO (14:56)
[2018-02-13] MEDS ORDERED: LVNIS40 SQ (14:56)
[2018-02-13] MEDS ORDERED: Boost Nutritional Drink PO (14:56)
[2018-02-13] MEDS ORDERED: DXM4 PO (14:56)
[2018-02-13] MEDS ORDERED: PANT40TA PO (14:56)
[2018-02-13] MEDS ORDERED: ONDA4TAB46 PO (14:56)
[2018-02-13] MEDS ORDERED: RTL5 PO (14:56)
[2018-02-13] MEDS ORDERED: IMD2X PO (14:56)
--- NOTE | 2018-02-13 15:18 | Discharge Instructions ---
Discharge Instructions Date of Service Feb 13, 2018. Admission Reason for Admission: Weakness Discharge Discharge Diagnosis / Problem: weakness Discharge Goals Goal(s): Improve function, Increase independence, Improve disease control, Improve nutritional status, Learn about illness, Therapeutic intervention Activity Recommendations Activity Limitations: resume your previous activity Lifting Limitations: none Resume Normal Activity as tolerated. Do not overexert yourself! Instructions / Follow-Up Instructions / Follow-Up Van, you were evaluated and treated for weakness/electrolyte imbalances secondary to adenocarcinoma of unknown origin While hospitalized you recieved your first round of chemo therapy "FOLFIRI" We also addressed your electrolyte imbalances, nutrition, and functional capacity. 1) Cancer - Follow up with Dr. Carson on Wednesday as an out patient - Exercise as tolerated, as we discussed keeping up your strength is of the utmost important take it slowly but try to challenge yourself every day - Cancer Parish Rhythm : Work with Your to come up with a day to day plan of activities you can do around the house to keep you mind busy - Social Interaction: Be present, enjoy company, have fun. Numerous studies have demonstrated a profound impact on health as a result of - Well Being: Enjoy the outside, live you life, laugh and enjoy yourself. - Nutrition is of the utmost importance: We have prescribed boost+ to aid you nutrition -I also strongly recommend consuming the following as often as tolerated - METRX BIG 100 Super Cookie Crunch, Peanut Butter Pretzel, Cookie Dough Protein Bars 2x per day - Syntha 6 Protein Powder in whatever flavor you prefer. I find [place] to be delicious - Optimum Nutrition Serious Mass 3x per day - When mixing these please use milk, if milk is not tolerated take with lactaide supplement and or lactaide milk - EGGS everyday - Eat as much as you want I want your calorie goal for everyday to be around 4000 calories -Zofran: 4mg every 6 hours as needed for nausea -Lovenox: one injection per day to prevent blood clots -Clopidogrel: 75 mg daily to prevent blood clots -Reglan 10 mg tab before meals and at bedtime as needed -Immodium: 2mg every 6 hours as needed for diarrhea as needed -Protonix: 40 mg daily for acid reflux 2) Electrolytes - Potassium- Klor-Con M20: Please take 2 tablets in the morning - Vitamin D - Please take 2 tablets every morning - Calcium - Please take 1 pill every 2 hours while you are awake - Magnesium - Please take 1.5 tablets 2 times per day 1 in the morning and once in the evening - Boost + nutrition: as much as tolerated 3) Symptom management and Well Being - Decadron: please take 1.5 pills in the morning and 0.5 pills in the evening for a total of 2 pills per day - Lorazepam (ativan): 0.5 mg every 4 hours as needed for anxiety and sleep. try to minimize ativan doses as they may make you feel foggy - Methylphenidate (ritalin): 5 mg after breakfast and at lunch as needed for energy promotion - Wait at least 1 hour after decadron dose to take medication - Use cautiously if this medication is decreasing your appetite please discontinue its use - Mirtazapine: 15 mg in the evening for sleep promotion and food consumption Should your symptoms return or worsen please precede please contact Dr. Eron Leon at the [facility] or your primary care physician -([id number], [place] [address] ) Should any concerning symptoms such as chest pain, shortness of breath, uncontrollable fever or chills, palpitations please go directly to the er and or dial 911. Additionally please contact Dr. Eron Leon after you have contacted EMS/ Presented to the E.R. Should you have any additional questions please feel free to contact Dr. Eron Leon at the above address, you have been given his cell phone number. Thank you for allowing me to participate in your care, It has been an honor and a privilege getting to know you and your participating in your care during your hospitalization, Have a wonderful rest of the Summer! Current Hospital Diet Patient's current hospital diet: Regular Diet Discharge Diet Recommended Diet: Regular Diet Fluid Restriction: None Pending Studies Studies pending at discharge: no Laboratory Results Results Past 24 Hours Test 02/12/18 20:15 02/13/18 06:11 Range/Units Free Thyroxine 0.99 0.80-1.60 ng/dl Free Triiodothyronine 2.73 2.30-4.20 pg/ml Total Testosterone 92.3 ng/dl White Blood Count 2.94 4.8-10.8 K/uL Red Blood Count 2.96 4.7-6.1 M/uL Hemoglobin 8.7 14.0-18.0 g/dL Hematocrit 26.7 42-52 % Mean Corpuscular Volume 90.2 80-100 fL Mean Corpuscular Hemoglobin 29.4 25-34 pg Mean Corpuscular Hemoglobin Concent 32.6 32-36 g/dl Platelet Count 113 130-400 K/uL Mean Platelet Volume 9.3 7.4-10.4 fL Neutrophils (%) (Auto) 79.6 % Lymphocytes (%) (Auto) 11.2 % Monocytes (%) (Auto) 6.8 % Eosinophils (%) (Auto) 1.7 % Basophils (%) (Auto) 0.0 % Neutrophils # (Auto) 2.34 1.4-6.5 K/uL Lymphocytes # (Auto) 0.33 1.2-3.4 K/uL Monocytes # (Auto) 0.20 0.11-0.59 K/uL Eosinophils # (Auto) 0.05 0-0.5 K/uL Basophils # (Auto) 0.00 0-0.2 K/uL RDW Standard Deviation 48.3 36.4-46.3 fL RDW Coefficient of Variation 15.8 11.5-14.5 % Immature Granulocyte % (Auto) 0.7 % Immature Granulocyte # (Auto) 0.02 0.00-0.02 K/uL Nucleated RBC Absolute Count (auto) 0.02 0-0 K/uL Nucleated Red Blood Cells % 0.6 % Polychromasia 1+ Anisocytosis PRESENT Sodium Level 138 136-145 mmol/L Potassium Level 4.2 3.5-5.1 mmol/L Chloride Level 106 98-107 mmol/L Carbon Dioxide Level 25 21-32 mmol/L Anion Gap 7.0 3-11 mmol/L Blood Urea Nitrogen 25 7-18 mg/dl Creatinine 1.36 0.60-1.40 mg/dl Est Creatinine Clear Calc Drug Dose 89.9 ml/min Estimated GFR () 71.3 Estimated GFR (Non- 61.5 BUN/Creatinine Ratio 18.2 10-20 Random Glucose 100 70-99 mg/dl Calcium Level 6.8 8.5-10.1 mg/dl Ionized Calcium 1.05 1.12-1.32 mmol/l Phosphorus Level 2.9 2.5-4.9 mg/dl Magnesium Level 1.5 1.8-2.4 mg/dl Total Bilirubin 0.3 0.2-1 mg/dl Aspartate Amino Transf (AST/SGOT) 10 15-37 U/L Alanine Aminotransferase (ALT/SGPT) 14 12-78 U/L Alkaline Phosphatase 244 45-117 U/L Total Protein 4.4 6.4-8.2 gm/dl Albumin 2.2 3.4-5.0 gm/dl Globulin 2.2 2.5-4.0 gm/dl Albumin/Globulin Ratio 1.0 0.9-2 Thyroid Stimulating Hormone (TSH) 1.650 0.300-4.500 uIu/ml Medical Emergencies . Who to Call and When: Medical Emergencies: If at any time you feel your situation is an emergency, please call 911 immediately. . Non-Emergent Contact Non-Emergency issues call your: Primary Care Provider, Hospital Doctor (Dr. Eron Leon), Oncologist . . "Provider Documentation" section prepared by Eron Leon. .
[2018-02-13 15:36] VITALS: BP 114/81; PULSE 109; TEMP 36.9; O2SAT 96
[2018-02-13] MEDS ORDERED: [UNRECOGNIZED DRUG - CODE] PO (15:42)
[2018-02-13] MEDS ORDERED: NURSING VERBAL MED ORDER ONE ×2 (16:45→17:15)
[2018-02-13] MEDS ORDERED: BOOST BREEZE NUTRITION DRINK 1 BOX PO SCH (17:00)
[2018-02-13] MEDS ORDERED: MAGNESIUM OXIDE 400 MG TAB PO SCH (17:00)
[2018-02-13] MEDS ORDERED: DEXAMETHASONE 1 MG TAB PO SCH (17:00)
[2018-02-13] MEDS ORDERED: MONTELUKAST SOD 10 MG TAB PO SCH (17:15)
[2018-02-13] MEDS ORDERED: MIRTAZAPINE TAB 15 MG TAB PO SCH (17:15)
--- NOTE | 2018-02-13 18:15 | Discharge Summary ---
Discharge Summary Date of Service Feb 13, 2018. Discharge Summary Admission Date: Feb 01, 2018 at 18:17 Discharge Date: Feb 13, 2018 Discharge Disposition: Home with services Principal Diagnosis: Weakness 2/2 metastatic adenocarcinoma of unknown primary site Immunizations: Have You Had Influenza Vaccine: Unknown History of Tetanus Vaccine?: Unknown History of Pneumococcal: Unknown History of Hepatitis B Vaccine: Unknown Procedures: Numerous Paracentesis 02/01 ABD/Pelvis CT: 1. Decreased size of the bilateral pleural effusions, now small to moderate on the left and trace on the right. Trace pericardial effusion is also noted. 2. Mild generalized body wall edema with moderate abdominal pelvic ascites. 3. Redemonstration of pathologically enlarged retroperitoneal and bilateral iliac chain adenopathy suggestive of metastatic disease. 4. Innumerable sclerotic bony metastasis again noted. 5. Nonobstructing bilateral nephrolithiasis. 6. No pneumatosis or pneumoperitoneum. 02/01 CXR:Negative chest. Consultations: See Hospital Course Medication Reconciliation New Medications: Ergocalciferol (Drisdol) 50,000 Unit Cap 1 TAB PO WK, #4 TAB 3 Refills Ondansetron Hcl (Zofran) 4 Mg Tab 4 MG PO UD PRN for Nausea for 30 Days, #120 TAB take as needed for nausea Calcium Carbonate (Oyster Shell Calcium) 1,250 Mg Tab 1250 MG PO Q2HWA for 30 Days, #120 TAB Cholecalciferol (Vitamin D3) 1,000 Inter.unit Tab 2000 INTER.UNIT PO QAM, #60 TAB Please take 2 per day Dexamethasone (Dexamethasone) 4 Mg Tab 4 MG PO QAM, #60 TAB take 1.5 (6mg) pills in the a.m. and 0.5 mg (2mg) Enoxaparin (Enoxaparin Sodium) 40 Mg/0.4 Ml Inj 40 MG SQ Q24H for 30 Days Lorazepam (Lorazepam) 0.5 Mg Tab 0.5 MG PO Q4 PRN for Anxiety, #60 TAB Take as needed for anxiety Magnesium Oxide (Magnesium-Oxide) 400 Mg Tab 600 MG PO BID, #60 TAB Methylphenidate HCl (Methylphenidate HCl) 5 Mg Tab 5 MG PO NOW PRN for Psychomotor retardation MDD 10 mg, #30 TAB Take only as needed for low energy. 1 pill in the morning and 1 pill in around lunch time. Take at least 1 hour after decadron. Stop taking if appetite supression is noticed Potassium Chloride (Klor-Con M20) 20 Meq Tabcr 40 MEQ PO QAM, #30 [Boost Nutritional Drink] () 1 BOX LIQD 1 BOX PO BID Changed Medications: Loperamide Hcl (Imodium) 2 Mg Cap 2 MG PO QID, #160 CAP (Medication details modified) Take as needed for symptom management Continued Medications: Atorvastatin (Lipitor) 10 Mg Tab 10 MG PO DAILY Clopidogrel (Plavix) 75 Mg Tab 75 MG PO DAILY, TAB Loratadine (Claritin) 10 Mg Tab 10 MG PO DAILY, TAB Metoclopramide (Reglan) 10 Mg Tab 10 MG PO ACHS, #30 TAB (This prescription has been renewed) Mirtazapine (Mirtazapine) 15 Mg Tab 15 MG PO HS Montelukast Sodium (Singulair) 10 Mg Tab 10 MG PO DAILY, TAB Pantoprazole (Protonix) 40 Mg Tab 40 MG PO DAILY, #30 TAB (This prescription has been renewed) Discontinued Medications: Ciprofloxacin Hcl (Cipro) 500 Mg Tab 500 MG PO BID, TAB Dexamethasone (Decadron) 4 Mg Tab 2 MG PO BID, TAB Discharge Exam Patient was resting comfortably during the exam today, no complaints overnight, felling better reports subjective increase in energy 2/2 to decadron. Patient was anxious and tearful about his prognosis and discharge. Tolerating diet normal voiding and stooling. Review of Systems: Constitutional: + weakness (resolving), No fever, No chills, No sweats Eyes: No worsening of vision ENT: No hearing loss Respiratory: No cough, No sputum, No wheezing, No shortness of breath Cardiovascular: No chest pain, No orthopnea, No edema Abdomen: + diarrhea, No pain, No nausea, No vomiting, No constipation Musculoskeletal: No joint pain, No muscle pain, No swelling, No calf pain Genitourinary - Male: No hematuria, No dysuria, No urinary frequency Neurologic: No paralysis, No weakness Psychiatric: No depression symptoms Endocrine: No fatigue, No excessive thirst Hematologic / Lymphatic: + clotting problems (hx of TIA), No abnormal bleeding/bruising Integumentary: No rash, No itch, No new/changing skin lesions Physical Exam: General Appearance: WD/WN, no apparent distress Eyes: normal inspection, EOMI, sclerae normal ENT: hearing grossly normal Neck: supple, no adenopathy, thyroid normal, no JVD, no carotid bruits, trachea midline Respiratory/Chest: chest non-tender, lungs clear, normal breath sounds, no respiratory distress, no accessory muscle use Cardiovascular: regular rate, rhythm, no edema, no gallop, no JVD, no murmur , normal peripheral pulses Abdomen / GI: normal bowel sounds, non tender, soft, no organomegaly, no pulsatile mass Extremities: normal inspection, no calf tenderness, normal capillary refill , no pedal edema, non-tender Neurologic/Psychiatric: no motor/sensory deficits, alert, normal reflexes, oriented x 3, + pertinent finding (anxious affect) Skin: normal color, warm/dry, no rash Hospital Course 47-year-old man with PMhx of tia, Barretts esophagus, ckd, HTN, HLD, recently dx 'd [facility] Adenocarcinoma of unknown primary source, was admitted for evaluation of weakness and tremor. IV ABX to PPX against SBP and CHEMO ppx - hx of numerous paracentesis given Ca DX, ppx was given against sbp - Cx demonstrated NGTD - Continued until dc. - Had paracentesis 01/12 removed 3 liters ~ equals 3kg which agrees with his weight gain, -weight determined to be a good clinical indicator - Had numerous Abdominal U/S guided paracentesis -02/13 Low to moderate volume ascites, diminished in volume when compared the prior study dated 02/11/2018 Hypokalemia -Resolved -trended K+ levels daily -s/p paracentsis labs were reviewed Hypomagnesemia -Mag is great today -Trended Mg levels daily -s/p paracentsis labs were reviewed Hypocalcemia -Trend Ca levels daily, New Ca regimen worked well -500 mg Ca q 2h while awake -s/p paracentsis labs reviewed -Vit D2 50,000 q week -Vit D3 2000 qday Metastatic AdenoCarcinoma of unknown orgin -PSA was negative -Consulted Heme/Onc "-biopsy @ [facility] of his duodenal ulcer revealed an adenocarcinoma -previously had minimal to no response to cisplatin and obviously tolerated it very poorly -based on bx treat him on the presumption of a duodenal or small bowel primary -Completed first round of FOLFIRI" "02/09 update - Pt feels the fluid collection has decreased. - Hopefully, chemotherapy has been effective in slowing the process. - Daily albumin and magnesium replaced today as well. - consider Van for transfusion of 2 packed units of RBCs prior to discharge. - Hopefully,over the next day or two, we can move him towards discharge to allow continuation of salvage chemotherapy. 02/11 update - Spirits remain pretty decent considering his prolonged hospitalization. - Paracentesis will be done prior to departure. - Next round of chemotherapy is due on of next week. - Ashok believes Dr. Carson is planning for inpatient admission to carefully monitor electrolytes. - Will discuss further with Haider today. - Overall, I am cautiously optimistic, Ashok is responding partially to current treatment." 02/12 Update " -Mr. Juárez looks about as strong as he has in a while. - ascites production has gone down, though that is likely due to the IV albumin. - continue with that as an outpatient, though he also needs to push with oral supplements and PO intake. - I would like to do his next cycle, due , as an outpatient. I think that will improve his mood and conditioning. - I will plan to see him twice a week for fluids and albumin, along with labs. - I asked my office to set him up to come in on Wednesday. - We will then plan for the next cycle of chemo on ." -Consulted Psych "- Increase Remeron to 30 mg. HS - No criteria for inpatient care" -Consulted Nephro "-- Ergocalciferol 43781 IU weekly -- Calcium carbonate 2,500 mg twice daily (not to be given with food) -- KCl 40 mEq daily -- Monitor metabolic profile with magnesium and phosphorus daily while inpatient -- Document I/O's -- Therapeutic paracentesis today followed by albumin infusion -- Await Oncology input -- 02/09 Update -- Kidney function is back to baseline (creatinine 1.7 - 2.0) -- Primary service is providing IV albumin and correcting electrolytes including Mg -- Patient remains on Ergocalciferol 19400 IU weekly -- No further Nephrology evaluation needed at this time. Will sign off. " -Consulted nutrition - "Continue with Regular diet - Will attempt PO supplement with Pt and monitor Pt's acceptance. - Pt agreeable to continue with snacks that had been initiated - Will continue to work with Pt and monitor Pt's labs, weights, PO intake, need for additional interventions/education" -Hypoalbuminemia 2/2 AdenoCa s/p paracentesis -25 g albumin 02/10 a.m.,Hopefully excess albumin decreased the frequency of paracentesis -25g albumin 02/10 p.m. -02/11 had 25g albumin prior to paracentesis -02/11 had 25g albumin s/p paracentesis -02/12 had 25g albumin -Decadron dose was changed to 6mg qam and 2 mg qpm -Discussed the use of methylphenidate with Van to alleviate Psychomotor retardation. There is a great deal of evidence suggesting benefit in patients with significant tumor burden. Discussed the risk and benefits of therapy. Offered Van the option to try 5 mg qam and qnoon prn as tolerated. He elected to try therapy and I agree this may be beneficial (DOI:10.58041/ aog.[email or web address] amongst others) -Considered additional therapy if malignant ascites persists -anti-VEGF -Batimastat -octreotide -catumaxomab -Intraperitoneal TNF alpha -Intraperitoneal Interleukin Alpha one -Peritovenous shunt -Intraperitoneal Chemo -Considered Testosterone therapy to increase energy (total T 92.3) will f/u with Nando Caceres D.O. for further recs -Considered Synthroid therapy for psychomotor retardation and depression ( tsh 1.650, free t3 2.73, free t4 0.99) -Considered other pallative measures to increase quality of life (see [email or web address] for further recs) -Considered Megestrol acetate as an appetite stimulant Nutrition: -Counseled Nutrition is of the utmost importance:prescribed boost+ to aid nutrition -Strongly recommended that he consume the following as often as tolerated - METRX BIG 100 Super Cookie Crunch, Peanut Butter Pretzel, Cookie Dough Protein Bars 2x per day - Syntha 6 Protein Powder in whatever flavor you prefer. - Optimum Nutrition Serious Mass 3x per day - When mixing these please use milk, if milk is not tolerated take with Lactaid supplement and or Lactaid milk - EGGS everyday - Eat as much as you want I want your calorie goal for everyday to be around 4000 calories Acute on chronic BRYNN in the setting of ATN and tumor lysis syndrome -Nephro Consulted see above -Trended BMP -Trended PO4 -Avoided Nephrotoxic Medications Hyperlipidemia -resumed home statin 10mg qday Anxiety/Insomnia: -Increased prn 0.5mg ativan Q4 -Scheduled IV 0.5mg Ativan @ night while inpatient. Patient said he preferred IV ativan. transitioned po for dc Orthostatic hypotension -Resolved -Had code purple 02/06/18 -Was Likely 2/2 abdominal ascites -Hypotensive episodes resolved 2/2 paracentesis Was FULL CODE DVT: Lovenox Diet: Regular Resident Physician Supervision Note: I interviewed and examined the patient. Discussed with Dr. Leon and agree with findings and plan as documented in the note. Any exceptions or clarifications are listed here: None Documented By: Hernan Piña feeling ok to go home extensive discussions, provided as much guidance as i could, empathy and support as well vitals noted nad breathing unlabored metastatic cancer, protein malnutrition related to cancer, cancer related anemia requiring 2 units transfusion, third spacing of fluids/malignant ascites -stable for home as above Total Time Spent: Less than 30 minutes This includes examination of the patient, discharge planning, medication reconciliation, and communication with other providers. Discharge Instructions Please refer to the electronic Patient Visit Report (Discharge Instructions) for additional information. Additional Copies To Eron Leon M.D.; Haider Carson MD; Teresa Beck, ; Kevin Cavazos D.O.; Andrew Mendoza M.D. Resident Tracking Resident Involvement: Resident Care Provided Care Provided: Adult Hospital Medicine
[2018-02-17] MEDS ORDERED: FOSAPREPITANT DIMEGLUMINE INJ 150 MG in SODIUM CHLORIDE 0.9% 150ML 145 ML IV SCH (12:00)
== END 2018-02-13 17:30 | disposition home health service (06) | DRG 843 ==
LOC: C.EDB 12:09 → C.4E 18:17 → EDBEDREQ 18:29 → EDBEDREQSVC 18:32 → ENRESERV 18:42
PROVIDERS: ADMIT Family Medicine; ATTEND Family Medicine
PROC: 0W9G3ZZ Drainage of Peritoneal Cavity, Percutaneous Approach (ICD-10-PCS; principal; 2018-02-04)
PROC: 0W9G3ZZ Drainage of Peritoneal Cavity, Percutaneous Approach (ICD-10-PCS; 2018-02-07)
PROC: 0W9G3ZX Drainage of Peritoneal Cavity, Percutaneous Approach, Diagnostic (ICD-10-PCS; 2018-02-11)
DX: C80.1 Malignant (primary) neoplasm, unspecified (principal); N17.0 Acute kidney failure with tubular necrosis; E88.3 Tumor lysis syndrome; E46 Unspecified protein-calorie malnutrition; R45.851 Suicidal ideations; R18.0 Malignant ascites; R53.1 Weakness; I12.9 Hypertensive chronic kidney disease with stage 1 through stage 4 chronic kidney disease, or unspecified chronic kidney disease; N18.9 Chronic kidney disease, unspecified; E87.6 Hypokalemia; E83.42 Hypomagnesemia; E83.51 Hypocalcemia; E78.5 Hyperlipidemia, unspecified; G47.00 Insomnia, unspecified; F43.29 Adjustment disorder with other symptoms; Z79.02 Long term (current) use of antithrombotics/antiplatelets; Z79.899 Other long term (current) drug therapy; F32.9 Major depressive disorder, single episode, unspecified; F41.9 Anxiety disorder, unspecified

== ENCOUNTER 2018-02-15 09:51 | Inpatient (IN) | payer BC, OTHER ==
[~2018-02-15] VITALS: Ht 182.9 cm; Wt 101.9 kg
[~2018-02-15 09:51] MED LIST changes: +ATV5 PO; +Boost Nutritional Drink PO; -CIPR1TAB10 PO; +CLCC1250 PO; -DXM/4 PO; +DXM4 PO; +LVNIS40 SQ; +MCRK20 PO; +MGNO400 PO; +ONDA4TAB46 PO; +RTL5 PO; +VTMD1000 PO; +[UNRECOGNIZED DRUG - CODE] PO
[2018-02-15] MEDS ORDERED: SODIUM CHLORIDE 0.9% 1000ML 500 ML IV STA (10:05)
[2018-02-15 10:28] LABS: EOS % 0.5 %; EOS ABS # 0.02 K/uL (0-0.5); HEMATOCRIT 32.4 % (42-52); HEMOGLOBIN 10.7 g/dL (14.0-18.0); IG# 0.01 K/uL (0.00-0.02); LYMPH % 12.4 %; LYMPH ABS # 0.49 K/uL (1.2-3.4); MEAN CELL VOLUME 90.5 fL (80-100); MEAN CORPUSCULAR HEMOGLOBIN 29.9 pg (25-34); MONO % 7.8 %; MONO ABS # 0.31 K/uL (0.11-0.59); NEUT ABS # 3.13 K/uL (1.4-6.5); PLATELET COUNT 156 K/uL (130-400); RED CELL DISTRIBUTION WIDTH SD 51.2 fL (36.4-46.3); WHITE BLOOD COUNT 3.96 K/uL (4.8-10.8)
[2018-02-15] MEDS ORDERED: POLYETHYLENE (MIRALAX) 17 GM PACK PO PRN (10:30)
[2018-02-15] MEDS ORDERED: ACETAMINOPHEN 325 MG TAB PO PRN (10:30)
[2018-02-15] MEDS ORDERED: ALUMINUM/MAGNESIUM/SIMETH (MAALOX MAX) 30 ML UDC PO PRN (10:30)
[2018-02-15] MEDS ORDERED: MAGNESIUM HYDROXIDE SUSP 30 ML UDC PO PRN (10:30)
[2018-02-15] MEDS ORDERED: ZOLPIDEM TARTRATE 5 MG TAB PO PRN (10:30)
--- NOTE | 2018-02-15 10:31 | DIAGNOSTIC IMAGING REPORT ---
CHEST ONE VIEW PORTABLE CLINICAL HISTORY: Altered mental status. Weakness. COMPARISON STUDY: 02/01/2018 FINDINGS: The heart is at the upper limits of normal in size. There are low lung volumes with mild basilar atelectasis. There is no failure. There is no lobar consolidation. There is been interval asymmetric of a left-sided central venous catheter. The tip projects over the atriocaval junction.[ IMPRESSION: Mild basilar atelectasis. No evidence of lobar consolidation Electronically signed by: Trey Villarreal M.D. 02/15/2018 10:29 AM Dictated Date/Time: 02/15/2018 10:28 AM
[2018-02-15 10:40] VITALS: O2SAT 98; BMI 28.6
[2018-02-15 10:47] LABS: INR 1.1 (0.9-1.1); PTT PATIENT 26.1 SECONDS (21.0-31.0)
[2018-02-15 10:55] LABS: ALBUMIN 2.4 gm/dl (3.4-5.0); ALKALINE PHOSPHATASE 253 U/L (45-117); ALT/SGPT 17 U/L (12-78); AST/SGOT 14 U/L (15-37); BLOOD UREA NITROGEN 33 mg/dl (7-18); CALCIUM 6.8 mg/dl (8.5-10.1); CARBON DIOXIDE 22 mmol/L (21-32); CREATININE 1.27 mg/dl (0.60-1.40); GLUCOSE 139 mg/dl (70-99); POTASSIUM 4.2 mmol/L (3.5-5.1); SODIUM 137 mmol/L (136-145); TOTAL PROTEIN 5.1 gm/dl (6.4-8.2)
--- NOTE | 2018-02-15 11:02 | History and Physical ---
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 The pt presented on 10/19/17 with acute R weakness and aphasia. An initial CT head was negative. A subsequent MRI demonstrated a posterior, left, frontal lobe infarct and an incidental finding of supraclavicular and mediastinal adenopathy. A subsequent biopsy led to the diagnosis of metastatic carcinoma. An intestinal biopsy also demonstrated malignancy leading to suspicion of a small bowel primary. The CA has shown rapid progress with widespread bone metastasis. He had been started on chemotherapy for presumed germ cell origin prior to realigning treatment for a bowel primary. He was admitted on 01/10 and 01/19 primarily for weakness, dehydration, ARF and SOB related to expansion of effusions and ascites requiring drainage. He remained in the hospital for an extended period due to various complications including ARF, SBP, cytopenias and intractable vomiting. At one point he was in critical condition due to hypotension and electrolyte abnormalities. He was transferred to the [facility] on 02/03, stabilized and returned to [facility]. He was again rehospitalized upon returning and was DCd 02/13. He had a poor reaction to the initial chemo regimen, although he had managed to complete five courses of Carboplatin / Etoposide. He commence a regimen of Irinotecan and 5FU approximately 12 days ago. Following DC on 02/13, he was to be readmitted 02/17 for inpatient chemo. However, due to poor PO intake and weakness, he was directed to attend the hospital early for hydration and electrolyte monitoring in preparation for additional chemo. Stable anemia and moderate hypomagnesemia are present on initial labs which are otherwise unimpressive. An abdominal US shows moderate reaccumulation of ascites. Past Medical/Surgical History 1) HTN 2) HPL 3) CVA 10/19/17 - presented with R arm and face paralysis and aphasia 4) Metastatic carcinoma of unknown primary - widespread lymphadenopathy, sclerotic and lytic bone lesions, most prominently in the ribs and spine. Current suspected primary is small bowel so that this is being treated as one would treat colorectal CA. 5) Anasarca including ascites requiring regular drainage. 6) BL malignant pleural effusions 7) Raheem's esophagus - grade D esophagitis and multiple duodenal erosions on EGD 01/05. Colonoscopy with diverticulosis only. Biopsy results from an intestinal ulcer provided evidence of malignancy. 8) DVT 01/03 - currently remains on a prophylactic dose of Lovenox. 9) L hydronephrosis due to partial obstruction due to casts/debris - declined ureteral stent placement. Family History Stroke Social History Does not smoke - rarely drinks. Prior to becoming ill he was working in the [employer] system. Smoking Status: Never Smoker Drug Use: none Marital Status: Housing status: lives with family Occupational Status: disabled Immunizations History of Influenza Vaccine: Unknown History of Tetanus Vaccine?: Unknown History of Pneumococcal: Unknown History of Hepatitis B Vaccine: Unknown Allergies Coded Allergies: Sulfa Antibiotics (Verified Allergy, Intermediate, RASH, 02/01/18) Home Medications Scheduled Atorvastatin (Lipitor), 10 MG PO DAILY Calcium Carbonate (Oyster Shell Calcium), 1,250 MG PO Q2HWA Cholecalciferol (Vitamin D3), 2,000 INTER.UNIT PO QAM Clopidogrel (Plavix), 75 MG PO DAILY Dexamethasone (Dexamethasone), 4 MG PO QAM Enoxaparin (Enoxaparin Sodium), 40 MG SQ Q24H Ergocalciferol (Drisdol), 1 TAB PO WK Loperamide Hcl (Imodium), 2 MG PO QID Loratadine (Claritin), 10 MG PO DAILY Magnesium Oxide (Magnesium-Oxide), 600 MG PO BID Metoclopramide (Reglan), 10 MG PO ACHS Mirtazapine (Mirtazapine), 15 MG PO HS Montelukast Sodium (Singulair), 10 MG PO DAILY Pantoprazole (Protonix), 40 MG PO DAILY Potassium Chloride (Klor-Con M20), 40 MEQ PO QAM [Boost Nutritional Drink], 1 BOX PO BID Scheduled PRN Lorazepam (Lorazepam), 0.5 MG PO Q4 PRN for Anxiety Methylphenidate HCl (Methylphenidate HCl), 5 MG PO NOW PRN for Psychomotor retardation Ondansetron Hcl (Zofran), 4 MG PO UD PRN for Nausea Review of Systems Constitutional: + weakness, + fatigue, No fever, No chills, No sweats Eyes: No worsening of vision ENT: No hearing loss, No unusual epistaxis, No nasal symptoms Respiratory: No cough, No wheezing Cardiovascular: No chest pain, No orthopnea, No PND Abdomen: + nausea, + vomiting, + diarrhea Musculoskeletal: No joint pain Genitourinary - Male: No hematuria, No dysuria Neurologic: + weakness, No memory loss Psychiatric: + depression symptoms Endocrine: + fatigue Hematologic / Lymphatic: No abnormal bleeding/bruising Integumentary: No rash Allergic / Immunologic: No environmental allergies Physical Exam Vital Signs Date Time Temp Pulse Resp B/P (MAP) Pulse Ox O2 Delivery O2 Flow Rate FiO2 02/15/18 10:19 102 02/15/18 10:15 98 Room Air 02/15/18 10:14 98 Room Air 02/15/18 09:53 36.7 111 26 125/90 97 Room Air Head: normocephalic Eyes: normal inspection ENT: normal ENT inspection Neck: supple, no JVD Respiratory/Chest: chest non-tender, lungs clear, normal breath sounds Cardiovascular: regular rate, rhythm, no edema, no gallop Abdomen/GI: normal bowel sounds, soft, + pertinent finding (Fluid distention is present) Back: normal inspection, no CVA tenderness Extremities/Musculoskelatal: normal inspection, no calf tenderness, normal capillary refill Neurologic/Psych: insight leader II-XII nml as tested, no motor/sensory deficits, alert, oriented x 3 Diagnostics Laboratory Results Results Past 24 Hours Test 02/15/18 10:15 Range/Units White Blood Count 3.96 4.8-10.8 K/uL Red Blood Count 3.58 4.7-6.1 M/uL Hemoglobin 10.7 14.0-18.0 g/dL Hematocrit 32.4 42-52 % Mean Corpuscular Volume 90.5 80-100 fL Mean Corpuscular Hemoglobin 29.9 25-34 pg Mean Corpuscular Hemoglobin Concent 33.0 32-36 g/dl Platelet Count 156 130-400 K/uL Mean Platelet Volume 9.0 7.4-10.4 fL Neutrophils (%) (Auto) 79.0 % Lymphocytes (%) (Auto) 12.4 % Monocytes (%) (Auto) 7.8 % Eosinophils (%) (Auto) 0.5 % Basophils (%) (Auto) 0.0 % Neutrophils # (Auto) 3.13 1.4-6.5 K/uL Lymphocytes # (Auto) 0.49 1.2-3.4 K/uL Monocytes # (Auto) 0.31 0.11-0.59 K/uL Eosinophils # (Auto) 0.02 0-0.5 K/uL Basophils # (Auto) 0.00 0-0.2 K/uL RDW Standard Deviation 51.2 36.4-46.3 fL RDW Coefficient of Variation 17.0 11.5-14.5 % Immature Granulocyte % (Auto) 0.3 % Immature Granulocyte # (Auto) 0.01 0.00-0.02 K/uL Impression Assessment and Plan 47 y/o M with history of HTN, HPL, 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 The pt presented on 10/19/17 with acute R weakness and aphasia. An initial CT head was negative. A subsequent MRI demonstrated a posterior, left, frontal lobe infarct and an incidental finding of supraclavicular and mediastinal adenopathy. A subsequent biopsy led to the diagnosis of metastatic carcinoma. An intestinal biopsy also demonstrated malignancy leading to suspicion of a small bowel primary. The CA has shown rapid progress with widespread bone metastasis. He had been started on chemotherapy for presumed germ cell origin prior to realigning treatment for a bowel primary. He was admitted on 01/10 and 01/19 primarily for weakness, dehydration, ARF and SOB related to expansion of effusions and ascites requiring drainage. He remained in the hospital for an extended period due to various complications including ARF, SBP, cytopenias and intractable vomiting. At one point he was in critical condition due to hypotension and electrolyte abnormalities. He was transferred to the [facility] on 02/03, stabilized and returned to [facility]. He was again rehospitalized upon returning and was DCd 02/13. He had a poor reaction to the initial chemo regimen, although he had managed to complete five courses of Carboplatin / Etoposide. He commence a regimen of Irinotecan and 5FU approximately 12 days ago. Following DC on 02/13, he was to be readmitted 02/17 for inpatient chemo. However, due to poor PO intake and weakness, he was directed to attend the hospital early for hydration and electrolyte monitoring in preparation for additional chemo. Stable anemia and moderate hypomagnesemia are present on initial labs which are otherwise unimpressive. An abdominal US shows moderate reaccumulation of ascites. 1) Weakness, dehydration related to CA - due to the pt's recurrent hospitalizations and poor tolerance of needed chemotherapy, he is admitted for IV hydration in prep for inpt chemo. This would involve Irinotecan and 5FU on followed by a 48 hr 5FU infusion. Electrolytes and CBC will be trended daily. 2) CA - treating as a small bowel primary - we will consult his Oncologist. 3) Ascites - he prefers to hold off on a tap presently. 4) Hx DVT - SCDs and Lovenox provided. 5) HypoMg - repleted Full code - Lovenox prophylaxis Total time for this admit including review of labs, meds, imaging, records - discussion with pt and ER attending - 38 min Resuscitation Status VTE Prophylaxis Will order VTE Prophylaxis: Yes
--- NOTE | 2018-02-15 11:12 | DIAGNOSTIC IMAGING REPORT ---
ABDOMEN LIMITED (US) HISTORY: Ascites eval for amount of ascites. COMPARISON: 02/11/2018 FINDINGS: Mild abdominal ascites is present in all 4 quadrants. IMPRESSION: Mild abdominal ascites. No significant change from the prior exam. The above report was generated using voice recognition software. It may contain grammatical, syntax or spelling errors. Electronically signed by: Wang Rutledge M.D. 02/15/2018 11:11 AM Dictated Date/Time: 02/15/2018 11:10 AM
[2018-02-15] MEDS ORDERED: LORAZEPAM 2 MG/ML 1 ML VIAL IV STA (11:38)
[2018-02-15] MEDS: CALCIUM CARBONATE 1250MG TAB PO SCH ×6 (12:00→22:00)
[2018-02-15] MEDS: SODIUM CHLORIDE 0.9% 1000ML 1,000 ML IV SCH ×2 (13:30→21:15)
--- NOTE | 2018-02-15 14:00 | EMERGENCY ROOM VISIT NOTE ---
History Report prepared by Dariela: Roseanne Epperson Under the Supervision of: Dr. George Brennan M.D. First contact with patient: 09:59 Chief Complaint: SHORTNESS OF BREATH Stated Complaint: SHORTNESS OF BREATH, FLUID BUILD UP IN STOMACH History of Present Illness The patient is a 48 year old male who presents to the Emergency Room with complaints of worsening shortness of breath that began two days ago. The patient notes that he was here last Wednesday for an abdominal tap. He states that he is "here to get electrolytes started and and go back into admission". The patient complains of pressure in his abdomen that is accompanied by bloating that began on Wednesday. The patient also complains of diarrhea and fluid in his abdomen. He denies fever, cough, scrotal swelling, and vomiting. The patient notes that he is currently on a "big regiment of pills". He notes that he takes Lorazepam for sleep and anxiety. He states that in the past while he was doing a 48 hour chemotherapy, he had a code purple. He states that he was supposed to go to the cancer center for hydration at 1300 today but was referred to the ED. Source of History: patient Onset: 2 day ago Position: chest Timing: worsening Associated Symptoms: + abdominal pain, + diarrhea, No fevers, No cough, No vomiting Note: The patient complains of bloating and fluid in his abdomen. The patient denies scrotal swelling. Review of Systems See HPI for pertinent positives & negatives. A total of 10 systems reviewed and were otherwise negative. Past Medical & Surgical Medical Problems: (1) Acute kidney injury (2) Cerebrovascular accident (3) Dehydration (4) Disseminated malignancy of unknown primary (5) Dyspnea (6) Hydronephrosis (7) Hypertension (8) Hypocalcemia (9) Hypokalemia (10) Hypomagnesemia (11) Metabolic acidemia (12) mood disorder related to medical condition (13) Nausea and vomiting (14) Pleural effusion (15) TIA (transient ischemic attack) (16) Uric acid crystalluria (17) Weakness Family History Stroke Social History Smoking Status: Never Smoker Drug Use: none Marital Status: Housing Status: lives with significant other Occupation Status: disabled Current/Historical Medications Scheduled Atorvastatin (Lipitor), 10 MG PO DAILY Calcium Carbonate (Oyster Shell Calcium), 1,250 MG PO Q2HWA Cholecalciferol (Vitamin D3), 2,000 INTER.UNIT PO QAM Clopidogrel (Plavix), 75 MG PO DAILY Dexamethasone (Dexamethasone), 4 MG PO QAM Enoxaparin (Enoxaparin Sodium), 40 MG SQ Q24H Ergocalciferol (Drisdol), 1 TAB PO WK Loperamide Hcl (Imodium), 2 MG PO QID Loratadine (Claritin), 10 MG PO DAILY Magnesium Oxide (Magnesium-Oxide), 600 MG PO BID Metoclopramide (Reglan), 10 MG PO ACHS Mirtazapine (Mirtazapine), 15 MG PO HS Montelukast Sodium (Singulair), 10 MG PO DAILY Pantoprazole (Protonix), 40 MG PO DAILY Potassium Chloride (Klor-Con M20), 40 MEQ PO QAM [Boost Nutritional Drink], 1 BOX PO BID Scheduled PRN Lorazepam (Lorazepam), 0.5 MG PO Q4 PRN for Anxiety Methylphenidate HCl (Methylphenidate HCl), 5 MG PO NOW PRN for Psychomotor retardation Ondansetron Hcl (Zofran), 4 MG PO UD PRN for Nausea Allergies Coded Allergies: Sulfa Antibiotics (Verified Allergy, Intermediate, RASH, 02/15/18) Physical Exam Vital Signs Date Time Temp Pulse Resp B/P (MAP) Pulse Ox O2 Delivery O2 Flow Rate FiO2 02/15/18 10:19 102 02/15/18 10:15 98 Room Air 02/15/18 10:14 98 Room Air 02/15/18 09:53 36.7 111 26 125/90 97 Room Air Physical Exam GENERAL: Patient is in no acute distress. HEENT: No acute trauma, normocephalic atraumatic, mucous membranes dry, no nasal congestion, no scleral icterus. NECK: No stridor, no adenopathy, no meningismus, trachea is midline. LUNGS: Clear to auscultation bilaterally, no wheeze, no rhonchi, breath sounds equal. HEART: Tachycardic with regular rhythm, no murmurs. ABDOMEN: Abdominal distention, non-tender umbilical hernia, no peritonitis, no real discomfort with palpation. EXTREMITIES: No cyanosis. Mild bilateral petal edema. full range of motion of all the joints without pain or difficulty, no signs for acute trauma. NEUROLOGIC: Oriented x 3, no acute motor or sensory deficits, no focal weakness. SKIN: No rash, no jaundice, no diaphoresis, pale. Medical Decision & Procedures ER Provider Diagnostic Interpretation: Radiology results as stated below per my review and radiologist interpretation: CHEST ONE VIEW PORTABLE CLINICAL HISTORY: Altered mental status. Weakness. COMPARISON STUDY: 02/01/2018 FINDINGS: The heart is at the upper limits of normal in size. There are low lung volumes with mild basilar atelectasis. There is no failure. There is no lobar consolidation. There is been interval asymmetric of a left-sided central venous catheter. The tip projects over the atriocaval junction.[ IMPRESSION: Mild basilar atelectasis. No evidence of lobar consolidation Electronically signed by: Trey Villarreal M.D. 02/15/2018 10:29 AM Dictated Date/Time: 02/15/2018 10:28 AM ABDOMEN LIMITED (US) HISTORY: Ascites eval for amount of ascites. COMPARISON: 02/11/2018 FINDINGS: Mild abdominal ascites is present in all 4 quadrants. IMPRESSION: Mild abdominal ascites. No significant change from the prior exam. The above report was generated using voice recognition software. It may contain grammatical, syntax or spelling errors. Electronically signed by: Wang Rutledge M.D. 02/15/2018 11:11 AM Dictated Date/Time: 02/15/2018 11:10 AM Laboratory Results 02/15/18 10:15 Red Blood Count 3.58, Mean Corpuscular Volume 90.5, Mean Corpuscular Hemoglobin 29.9, Mean Corpuscular Hemoglobin Concent 33.0, Mean Platelet Volume 9.0, Neutrophils (%) (Auto) 79.0, Lymphocytes (%) (Auto) 12.4, Monocytes (%) (Auto) 7.8, Eosinophils (%) (Auto) 0.5, Basophils (%) (Auto) 0.0, Neutrophils # (Auto) 3.13, Lymphocytes # (Auto) 0.49, Monocytes # (Auto) 0.31, Eosinophils # (Auto) 0.02, Basophils # (Auto) 0.00 02/15/18 10:15 Test 02/15/18 10:15 White Blood Count 3.96 K/uL (4.8-10.8) Red Blood Count 3.58 M/uL (4.7-6.1) Hemoglobin 10.7 g/dL (14.0-18.0) Hematocrit 32.4 % (42-52) Mean Corpuscular Volume 90.5 fL (80-100) Mean Corpuscular Hemoglobin 29.9 pg (25-34) Mean Corpuscular Hemoglobin Concent 33.0 g/dl (32-36) Platelet Count 156 K/uL (130-400) Mean Platelet Volume 9.0 fL (7.4-10.4) Neutrophils (%) (Auto) 79.0 % Lymphocytes (%) (Auto) 12.4 % Monocytes (%) (Auto) 7.8 % Eosinophils (%) (Auto) 0.5 % Basophils (%) (Auto) 0.0 % Neutrophils # (Auto) 3.13 K/uL (1.4-6.5) Lymphocytes # (Auto) 0.49 K/uL (1.2-3.4) Monocytes # (Auto) 0.31 K/uL (0.11-0.59) Eosinophils # (Auto) 0.02 K/uL (0-0.5) Basophils # (Auto) 0.00 K/uL (0-0.2) RDW Standard Deviation 51.2 fL (36.4-46.3) RDW Coefficient of Variation 17.0 % (11.5-14.5) Immature Granulocyte % (Auto) 0.3 % Immature Granulocyte # (Auto) 0.01 K/uL (0.00-0.02) Prothrombin Time 11.2 SECONDS (9.0-12.0) Prothromb Time International Ratio 1.1 (0.9-1.1) Activated Partial Thromboplast Time 26.1 SECONDS (21.0-31.0) Partial Thromboplastin Ratio 1.0 Anion Gap 10.0 mmol/L (3-11) Estimated GFR () 77.5 Estimated GFR (Non- 66.8 BUN/Creatinine Ratio 25.8 (10-20) Calcium Level 6.8 mg/dl (8.5-10.1) Magnesium Level 1.4 mg/dl (1.8-2.4) Total Bilirubin 0.3 mg/dl (0.2-1) Aspartate Amino Transf (AST/SGOT) 14 U/L (15-37) Alanine Aminotransferase (ALT/SGPT) 17 U/L (12-78) Alkaline Phosphatase 253 U/L (45-117) Troponin I < 0.015 ng/ml (0-0.045) Total Protein 5.1 gm/dl (6.4-8.2) Albumin 2.4 gm/dl (3.4-5.0) Globulin 2.7 gm/dl (2.5-4.0) Albumin/Globulin Ratio 0.9 (0.9-2) Thyroid Stimulating Hormone (TSH) 1.620 uIu/ml (0.300-4.500) Laboratory results reviewed by me. Medications Administered Medications (Trade) Dose Ordered Sig/Suraj Route Start Time Stop Time Status Last Admin Dose Admin Sodium Chloride 500 ml @ 999 mls/hr Q31M STAT IV 02/15/18 10:05 02/15/18 10:35 DC 02/15/18 10:23 999 MLS/HR ECG Per My Interpretation Indication: SOB/dyspnea Rate (beats per minute): 93 Rhythm: normal sinus Findings: other (No ST elevation, no PVC) ED Course 1000: The patient was evaluated in room B7. A complete history and physical exam was performed. 1005: Ordered Sodium Chloride 500 ml @ 999 mls/hr IV. 1009: Upon reexamination the patient is resting comfortably. I discussed results and treatment plan with the patient. He verbalizes agreement and understanding. 1012: I spoke with Dr. Loyd- Hospitalist of the [facility]. We discussed the patient' s results and findings. The patient will be evaluated by Dr. Loyd for further management. Medical Decision Differential diagnoses include: dehydration, hypomagnesemia, hypocalcemia, ascites,, infection, anemia, [place], CHF, pneumonia, UTI. The patient's white count and hemoglobin are both low, this is baseline though as of late. Renal panel testing does not show renal failure. The magnesium and calcium were both low. EKG showed a normal sinus rhythm, no acute ischemia. Cardiac enzyme testing 1 is not consistent with acute cardiac injury. Chest film shows no pneumonia or CHF. There was no pneumothorax. Abdominal ultrasound showed a mild amount of ascites, no change compared to previous ultrasounds. Urinalysis does not show infection. There was no coagulopathy. The patient appeared to be in a euthyroid state. The patient received IV saline for hydration. He is in need of a hospital stay. He is weak, he is in need of chemotherapy and has difficulty with chemotherapy. The patient has a low magnesium and low calcium and requires electrolyte replacement. I did speak to the patient and case management. The on-call hospitalist was consulted. Medication Reconcilliation Current Medication List: was personally reviewed by me Blood Pressure Screening Patient's blood pressure: Normal blood pressure Consults Time Called: 1010 Consulting Physician: Dr. Loyd- Hospitalist of the [facility] Returned Call: [address] Loyd- Hospitalist of the [facility]. We discussed the patient's results and findings. The patient will be evaluated by Dr. Loyd for further management Impression Primary Impression: Hypomagnesemia Additional Impressions: Hypocalcemia Dehydration Ascites Cancer, metastatic Scribe Attestation The scribe's documentation has been prepared under my direction and personally reviewed by me in its entirety. I confirm that the note above accurately reflects all work, treatment, procedures, and medical decision making performed by me. Departure Information Dispostion Being Evaluated By Hospitalist Referrals Teresa Beck DO (PCP) Forms HOME CARE DOCUMENTATION FORM, IMPORTANT VISIT INFORMATION Patient Instructions My [facility] Health Problem Qualifiers
[2018-02-15] MEDS ORDERED: IV FLUIDS COMPLETED PRN (14:15)
[2018-02-15] MEDS: MAGNESIUM SULFATE 1GM / D5W 100 ML IV SCH ×2 (14:36→15:52)
[2018-02-15] MEDS: ENOXAPARIN 40 MG/0.4 ML SYR SQ SCH (14:37)
[2018-02-15] MEDS: LOPERAMIDE HCL 2 MG CAP PO SCH ×3 (14:37→20:42)
[2018-02-15 15:06] VITALS: BP 135/100; PULSE 108; TEMP 35.8; O2SAT 95
[2018-02-15 15:55] VITALS: BP 128/93; PULSE 96
[2018-02-15 16:00] VITALS: O2SAT 95
[2018-02-15] MEDS: METOCLOPRAMIDE HCL 10 MG TAB PO SCH ×2 (17:25→20:41)
[2018-02-15] MEDS: LORAZEPAM 0.5 MG TAB PO PRN (17:36)
[2018-02-15] MEDS: ONDANSETRON INJ 2 MG/ML 2 ML VIAL IV PRN (17:36)
[2018-02-15 19:00] VITALS: BP 120/88; PULSE 95; TEMP 36.2; O2SAT 98
[2018-02-15] MEDS: BOOST BREEZE NUTRITION DRINK 1 BOX PO SCH (20:41)
[2018-02-15] MEDS: MAGNESIUM OXIDE 400 MG TAB PO SCH (20:54)
[2018-02-15] MEDS ORDERED: MIRTAZAPINE SOLTAB 15 MG PO SCH (21:00)
[2018-02-15] MEDS ORDERED: LORAZEPAM INJ 0.5 MG in SYRINGE 0.75 ML IV SCH (21:00)
[2018-02-15] MEDS: LORAZEPAM 2 MG/ML 1 ML VIAL IV PRN (21:11)
[2018-02-16] VITALS (8 sets, daily range): BP systolic 110–128; BP diastolic 57–87; PULSE 96–111; TEMP 36–37.1; O2SAT 93–98; BMI 29.7
[2018-02-16 03:50] LABS: HEMATOCRIT 29.8 % (42-52); HEMOGLOBIN 9.8 g/dL (14.0-18.0); MEAN CELL VOLUME 90.3 fL (80-100); MEAN CORPUSCULAR HEMOGLOBIN 29.7 pg (25-34); MEAN CORPUSCULAR HGB CONC 32.9 g/dl (32-36); PLATELET COUNT 137 K/uL (130-400); RED CELL DISTRIBUTION WIDTH CV 17.2 % (11.5-14.5); RED CELL DISTRIBUTION WIDTH SD 52.9 fL (36.4-46.3); WHITE BLOOD COUNT 2.97 K/uL (4.8-10.8)
[2018-02-16 04:11] LABS: CALCIUM 6.7 mg/dl (8.5-10.1); CREATININE 1.07 mg/dl (0.60-1.40); PHOSPHORUS 3.4 mg/dl (2.5-4.9)
[2018-02-16] MEDS: CALCIUM CARBONATE 1250MG TAB PO SCH ×9 (06:24→22:00)
[2018-02-16] MEDS: METOCLOPRAMIDE HCL 10 MG TAB PO SCH ×4 (06:24→20:50)
[2018-02-16] MEDS: LORAZEPAM 0.5 MG TAB PO PRN ×3 (06:25→17:49)
[2018-02-16] MEDS: LOPERAMIDE HCL 2 MG CAP PO SCH ×4 (06:36→20:50)
[2018-02-16] MEDS: ATORVASTATIN 10 MG TAB PO SCH (07:59)
[2018-02-16] MEDS: CLOPIDOGREL BISULFATE 75 MG TAB PO SCH (08:00)
[2018-02-16] MEDS ORDERED: DEXAMETHASONE 4 MG TAB PO SCH (08:00)
[2018-02-16] MEDS: CHOLECALCIFEROL 1000 INTER.UNIT TAB PO SCH (08:02)
[2018-02-16] MEDS: POTASSIUM CHLORIDE 20 MEQ TABCR PO SCH (08:03)
[2018-02-16] MEDS: PANTOprazole SOD 40 MG TAB PO SCH (08:03)
[2018-02-16] MEDS: MONTELUKAST SOD 10 MG TAB PO SCH (08:04)
[2018-02-16] MEDS: LORATADINE 10 MG TAB PO SCH (08:05)
[2018-02-16] MEDS: MAGNESIUM OXIDE 400 MG TAB PO SCH ×2 (08:06→20:50)
[2018-02-16] MEDS ORDERED: MAGNESIUM SULFATE 1GM / D5W 100 ML IV ONE (09:15)
[2018-02-16] MEDS: BOOST BREEZE NUTRITION DRINK 1 BOX PO SCH ×2 (10:24→20:51)
--- NOTE | 2018-02-16 12:17 | Hospitalist Progress Note ---
Hospitalist Progress Note Date of Service Feb 16, 2018. Subjective Pt evaluation today including: conversation w/ patient, conversation w/ family ( at bedside), physical exam, chart review, lab review, review of studies, review of inpatient medication list Pain: Abdominal discomfort secondary to ascites PO Intake: Tolerated breakfast today Voiding: no voiding problems Patient complains of abdominal fullness/discomfort secondary to his ascites and requests paracentesis today prior to receiving chemo tomorrow. He states he is short of breath and this is worse with exertion. He complains of generalized weakness and fatigue. He states he did vomit his dinner last night but tolerated breakfast this morning after eating more slowly. Denies any nausea currently. He states his appetite has been fair. He reports diarrhea, stating he has gone twice so far today. The patient denies fevers, chills, sweats, chest pain, palpitations, claudication, cough, wheezing, nausea, dysuria, hematuria, urinary retention, paralysis, weakness, numbness and tingling. Additional Comments: See HPI for pertinent positives and negatives. All other systems reviewed and negative. Objective Vital Signs Date Time Temp Pulse Resp B/P (MAP) Pulse Ox O2 Delivery O2 Flow Rate FiO2 02/16/18 11:25 36.0 111 20 124/86 (99) 93 02/16/18 09:22 37.1 101 16 127/83 (98) 96 Room Air 02/16/18 08:15 Room Air 02/16/18 03:43 36.2 96 18 110/57 (74) 97 Room Air 02/16/18 00:00 Room Air 02/15/18 19:00 36.2 95 20 120/88 (99) 98 Room Air 02/15/18 16:00 95 Room Air 02/15/18 15:55 96 128/93 (105) 02/15/18 15:06 35.8 108 18 135/100 (112) 95 Physical Exam Notes: General appearance: Well-developed, well-nourished, no apparent distress Head: Normocephalic, atraumatic Eyes: Normal inspection, PERRL, EOMI ENT: Normal ENT inspection, hearing grossly normal, pharynx normal Neck: Supple, no JVD, trachea midline Respiratory/Chest: Lungs clear to auscultation, normal breath sounds, no respiratory distress Cardiovascular: Regular rate & rhythm, no gallop, no murmur Abdomen/GI: +Distended, fluid filled. Hypoactive bowel sounds. Non-tender. Extremities/Musculoskeletal: Normal inspection, no calf tenderness, no pedal edema Neurological/Psych: +Flat affect. Alert, oriented x 3 Skin: Normal color, warm/dry, no rash Laboratory Results Last 24 Hours Test 02/15/18 14:43 02/16/18 03:41 Urine Color YELLOW Urine Appearance CLEAR Urine pH 5.0 Urine Specific [place] 1.027 Urine Protein TRACE Urine Glucose (UA) NEG Urine Ketones NEG Urine Occult Blood NEG Urine Nitrite NEG Urine Bilirubin NEG Urine Urobilinogen NEG Urine Leukocyte Esterase NEG Urine WBC (Auto) 1-5 /hpf Urine RBC (Auto) 0-4 /hpf Urine Hyaline Casts (Auto) 5-10 /lpf Urine Epithelial Cells (Auto) 10-20 /lpf Urine Bacteria (Auto) NEG Urine Pathogenic Casts 0-3 GRANULAR CASTS /lpf Urine Yeast (Auto) White Blood Count 2.97 K/uL Red Blood Count 3.30 M/uL Hemoglobin 9.8 g/dL Hematocrit 29.8 % Mean Corpuscular Volume 90.3 fL Mean Corpuscular Hemoglobin 29.7 pg Mean Corpuscular Hemoglobin Concent 32.9 g/dl RDW Standard Deviation 52.9 fL RDW Coefficient of Variation 17.2 % Platelet Count 137 K/uL Mean Platelet Volume 9.0 fL Sodium Level 135 mmol/L Potassium Level 4.0 mmol/L Chloride Level 105 mmol/L Carbon Dioxide Level 22 mmol/L Anion Gap 8.0 mmol/L Blood Urea Nitrogen 29 mg/dl Creatinine 1.07 mg/dl Est Creatinine Clear Calc Drug Dose 114.3 ml/min Estimated GFR () 95.3 Estimated GFR (Non- 82.2 BUN/Creatinine Ratio 27.0 Random Glucose 128 mg/dl Calcium Level 6.7 mg/dl Phosphorus Level 3.4 mg/dl Magnesium Level 1.7 mg/dl Assessment and Plan 48 y/o male with a history of HTN, HLD, recent CVA, and 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 Dehydration, weakness--stable -Creatinine 1.07 on 02/16, improved from 1.27. BN 29 on 02/16, improved from 33 -Received NSS at 100 cc/hr x 2L -Reviewed medical records from last admission, pt's Remeron had been increased to 30 mg per psych recs. Ambulatory meds updated and Remeron increased from 15 to 30 -Decadron also increased based off discharge summary from 02/14, should be 6 mg in morning and 2 mg in evening, adjustments made Ascites--pt symptomatic w/abdominal pain, SOB, now wishes for paracentesis prior to chemo -Ultrasound guided paracentesis performed 02/16, 4.6L fluid removed -Therapeutic only as diagnostic studies done last week and no s/s infection now -Albumin 25 gm IV given pior and s/p paracentesis -Continue to monitor albumin, was low today at 2.4 Hypomagnesemia--improving -Magnesium 1.7 on 02/16, up from 1.4 -Magnesium sulfate 1 gm IV x1 -Continue home mag oxide supplement Metastatic cancer, 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 Changed to full admit status HTN, HLD--stable -Continue Lipitor 10 mg PO qd Recent CVA 10/19/17 -Continue Plavix, statin DVT prophylaxis -Enoxaparin 40 mg SC q24h -SCDs Code Status -Level I, FULL RESUSCITATION STATUS
[2018-02-16] MEDS: ALBUMIN HUMAN 25% 12.5 GM/50 ML VIAL IV SCH ×4 (12:19→17:43)
[2018-02-16] MEDS: ENOXAPARIN 40 MG/0.4 ML SYR SQ SCH (13:57)
--- NOTE | 2018-02-16 16:17 | DIAGNOSTIC IMAGING REPORT ---
PARACENTESIS ABDOMEN W/IMAGING CLINICAL HISTORY: 48 years-old Male with ascites, symptomatic. Recurrent ascites COMPARISON: Abdominal ultrasound 02/15/2018 PROCEDURE: The procedure was explained to the patient in the care including the benefits and possible risks/complications. The patient gave verbal understanding and written consent was obtained. A time-out was performed prior to the start of the procedure. The patient was placed on the ultrasound table in the supine position. Using ultrasound guidance, an appropriate procedure site in the left lower abdomen was marked. This area was then prepped and draped in the usual sterile fashion. Local anesthesia was achieved within 1% lidocaine. An 8-Greek centesis catheter was then inserted. Approximately 4.6 liters of clear, yellowish fluid was removed. The catheter was removed and external pressure was held to achieve hemostasis. A sterile dressing was applied to the procedure site. The patient tolerated the procedure well without immediate complications. IMPRESSION: Successful ultrasound-guided paracentesis with removal of 4.6 L ascitic fluid. The above report was generated using voice recognition software. It may contain grammatical, syntax or spelling errors. Electronically signed by: Ramirez López M.D. 02/16/2018 4:16 PM Dictated Date/Time: 02/16/2018 4:14 PM
[2018-02-16] MEDS ORDERED: MIRT30TA3 PO (18:10)
[2018-02-16] MEDS ORDERED: IMD2X PO (18:10)
[2018-02-16] MEDS ORDERED: DXM4 PO (18:10)
[2018-02-16] MEDS ORDERED: RTL5 PO (18:10)
[2018-02-16] MEDS: DEXAMETHASONE 4 MG TAB PO SCH (20:49)
[2018-02-16] MEDS: MIRTAZAPINE SOLTAB 15 MG PO SCH (20:49)
[2018-02-16] MEDS: ONDANSETRON INJ 2 MG/ML 2 ML VIAL IV PRN (20:51)
[2018-02-16] MEDS: LORAZEPAM 2 MG/ML 1 ML VIAL IV PRN (20:51)
[2018-02-17] VITALS (9 sets, daily range): BP systolic 106–164; BP diastolic 71–113; PULSE 87–101; TEMP 36.1–36.9; O2SAT 96–98; BMI 28.7
[2018-02-17 05:56] LABS: HEMATOCRIT 26.7 % (42-52); HEMOGLOBIN 8.9 g/dL (14.0-18.0); MEAN CELL VOLUME 90.8 fL (80-100); MEAN CORPUSCULAR HEMOGLOBIN 30.3 pg (25-34); MEAN CORPUSCULAR HGB CONC 33.3 g/dl (32-36); MEAN PLATELET VOLUME 8.6 fL (7.4-10.4); PLATELET COUNT 120 K/uL (130-400); RED CELL DISTRIBUTION WIDTH CV 17.5 % (11.5-14.5); RED CELL DISTRIBUTION WIDTH SD 55.4 fL (36.4-46.3); WHITE BLOOD COUNT 2.16 K/uL (4.8-10.8)
[2018-02-17] MEDS: CALCIUM CARBONATE 1250MG TAB PO SCH ×9 (06:27→21:30)
[2018-02-17] MEDS: METOCLOPRAMIDE HCL 10 MG TAB PO SCH ×4 (06:27→21:01)
[2018-02-17] MEDS: LORAZEPAM 0.5 MG TAB PO PRN ×3 (06:27→17:04)
[2018-02-17] MEDS: ONDANSETRON INJ 2 MG/ML 2 ML VIAL IV PRN ×2 (06:27→21:01)
[2018-02-17 06:30] LABS: ALBUMIN 2.2 gm/dl (3.4-5.0); CALCIUM 7.2 mg/dl (8.5-10.1); CREATININE 1.04 mg/dl (0.60-1.40); PHOSPHORUS 3.2 mg/dl (2.5-4.9); POTASSIUM 4.1 mmol/L (3.5-5.1)
[2018-02-17] MEDS: LOPERAMIDE HCL 2 MG CAP PO SCH ×4 (06:43→20:12)
[2018-02-17] MEDS ORDERED: MAGNESIUM SULFATE 1GM / D5W 100 ML IV ONE (08:45)
[2018-02-17] MEDS: ATORVASTATIN 10 MG TAB PO SCH (09:00)
[2018-02-17] MEDS: PANTOprazole SOD 40 MG TAB PO SCH (09:00)
[2018-02-17] MEDS: MONTELUKAST SOD 10 MG TAB PO SCH (09:00)
[2018-02-17] MEDS: LORATADINE 10 MG TAB PO SCH (09:00)
[2018-02-17] MEDS: DEXAMETHASONE 4 MG TAB PO SCH ×2 (09:01→20:14)
[2018-02-17] MEDS: BOOST BREEZE NUTRITION DRINK 1 BOX PO SCH ×2 (09:01→20:00)
[2018-02-17] MEDS: POTASSIUM CHLORIDE 20 MEQ TABCR PO SCH (09:02)
[2018-02-17] MEDS: CHOLECALCIFEROL 1000 INTER.UNIT TAB PO SCH (09:02)
[2018-02-17] MEDS: MAGNESIUM OXIDE 400 MG TAB PO SCH ×2 (09:03→20:13)
--- NOTE | 2018-02-17 09:05 | Oncology Consultation ---
Oncology/Heme Consultation Date of Consultation: Feb 16, 2018. 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 His disease has had a very aggressive course and his treatment has been complicated by excessive toxicity, delays, and worsening refractory ascites. This latter issue has required numerous paracenteses over the last few weeks, with reaccumulation in 3-4 days on average. The fluid is malignant, but he also has a very low serum albumin which is likely a major contributor. He was due to see me in the office on Wednesday for IV fluids and to reassess his ascites, but he came to the ER instead. He has been eating very poorly at home and is progressively weak. He is also nervous about receiving his next planned cycle of chemo as an outpatient , as was the plan. Past Medical/Surgical History Medical Problems: (1) Abdominal distension Status: Acute (2) Anemia Status: Acute (3) Ascites Status: Acute (4) Ascites Status: Acute (5) Ascites Status: Acute (6) Bilateral pleural effusion Status: Acute (7) Cancer, metastatic Status: Acute (8) Cholangitis Status: Acute (9) Dehydration Status: Acute (10) Hypoxia Status: Acute (11) Metastatic cancer Status: Acute (12) Nausea & vomiting Status: Acute (13) Neutropenia Status: Acute (14) Respiratory distress Status: Acute (15) Tachycardia Status: Acute (16) Thrombopenia Status: Acute Family History Stroke Social History Smoking Status: Never Smoker Drug Use: none Marital Status: Housing Status: lives with significant other Occupation Status: disabled Allergies Coded Allergies: Sulfa Antibiotics (Verified Allergy, Intermediate, RASH, 02/15/18) Home Medications Scheduled Atorvastatin (Lipitor), 10 MG PO DAILY Calcium Carbonate (Oyster Shell Calcium), 1,250 MG PO Q2HWA Cholecalciferol (Vitamin D3), 2,000 INTER.UNIT PO QAM Clopidogrel (Plavix), 75 MG PO DAILY Dexamethasone (Dexamethasone), 4 MG PO UD Enoxaparin (Enoxaparin Sodium), 40 MG SQ Q24H Ergocalciferol (Drisdol), 1 TAB PO WK Loratadine (Claritin), 10 MG PO DAILY Magnesium Oxide (Magnesium-Oxide), 600 MG PO BID Metoclopramide (Reglan), 10 MG PO ACHS Mirtazapine (Remeron), 1 TAB PO HS Montelukast Sodium (Singulair), 10 MG PO DAILY Pantoprazole (Protonix), 40 MG PO DAILY Potassium Chloride (Klor-Con M20), 40 MEQ PO QAM [Boost Nutritional Drink], 1 BOX PO BID Scheduled PRN Loperamide Hcl (Imodium), 2 MG PO QID PRN for Diarrhea Lorazepam (Lorazepam), 0.5 MG PO Q4 PRN for Anxiety Methylphenidate HCl (Methylphenidate HCl), 5 MG PO UD PRN for Psychomotor retardation Ondansetron Hcl (Zofran), 4 MG PO UD PRN for Nausea Current Inpatient Medications Current Inpatient Medications Medications (Trade) Dose Ordered Sig/Suraj Route Start Time Stop Time Status Last Admin Dose Admin Acetaminophen (Tylenol Tab) 650 mg Q4H PRN PO 02/15/18 10:30 03/17/18 10:29 Al Hydrox/Mg Hydrox/Simethicone (Maalox Max Susp) 15 ml Q4H PRN PO 02/15/18 10:30 03/17/18 10:29 Magnesium Hydroxide (Milk Of Magnesia Susp) 30 ml Q6H PRN PO 02/15/18 10:30 03/17/18 10:29 Polyethylene (Miralax Powder Packet) 17 gm DAILY PRN PO 02/15/18 10:30 03/17/18 10:29 Zolpidem Tartrate (Ambien Tab) 5 mg HSZ PRN PO 02/15/18 10:30 03/17/18 10:29 Ondansetron HCl (Zofran Inj) 4 mg Q6H PRN IV 02/15/18 10:30 03/17/18 10:29 02/17/18 06:27 4 MG Atorvastatin Calcium (Lipitor Tab) 10 mg DAILY PO 02/16/18 08:00 03/18/18 08:59 02/16/18 07:59 10 MG Calcium Carbonate (oS-Oli 500 TAB) 1,250 mg Q2HWA PO 02/15/18 12:00 03/17/18 11:59 02/17/18 06:27 1,250 MG Cholecalciferol (Vitamin D Tab) 2,000 inter.unit QAM PO 02/16/18 08:00 03/18/18 08:59 02/16/18 08:02 2,000 INTER.UNIT Clopidogrel Bisulfate (plAVix TAB) 75 mg DAILY PO 02/16/18 08:00 03/18/18 08:59 Enoxaparin Sodium (Lovenox Inj) 40 mg Q24H SQ 02/15/18 14:00 03/17/18 13:59 02/15/18 14:37 40 MG Loperamide HCl (Imodium Cap) 2 mg QID PO 02/15/18 12:14 03/17/18 12:59 02/17/18 06:43 2 MG Loratadine (Claritin Tab) 10 mg DAILY PO 02/16/18 08:00 03/18/18 08:59 02/16/18 08:05 10 MG Lorazepam (Ativan Tab) 0.5 mg Q4 PRN PO 02/15/18 11:15 03/17/18 11:14 02/17/18 06:27 0.5 MG Magnesium Oxide (Mag-Ox Tab) 600 mg BID PO 02/15/18 20:00 03/17/18 20:59 02/16/18 20:50 600 MG Metoclopramide HCl (Reglan Tab) 10 mg ACHS PO 02/15/18 16:30 03/17/18 16:29 02/17/18 06:27 10 MG Montelukast Sodium (Singulair Tab) 10 mg DAILY PO 02/16/18 08:00 03/18/18 08:59 02/16/18 08:04 10 MG Pantoprazole Sodium (Protonix Tab) 40 mg DAILY PO 02/16/18 08:00 03/18/18 08:59 02/16/18 08:03 40 MG Potassium Chloride (Klor-Con Tab) 40 meq QAM PO 02/16/18 08:00 03/18/18 08:59 02/16/18 08:03 40 MEQ Enteral Nutritional Formula (Boost Breeze Nutritional Drink) 1 box BID PO 02/15/18 20:00 03/17/18 20:59 02/16/18 10:24 1 BOX Miscellaneous (Iv Fluids Completed) 1 ea PRN PRN N/A 02/15/18 14:15 02/15/19 14:14 Heparin Sodium (Porcine) (Heparin 10 Unit/ ml 5 ml Flush) 5 ml PRN PRN FLUSH 02/15/18 14:15 03/17/18 14:14 02/17/18 06:27 5 ML Lorazepam (Ativan Inj) 0.5 mg HS PRN IV 02/15/18 16:30 03/17/18 16:29 02/16/18 20:51 0.5 MG Lorazepam 0.5 mg/ Syringe 1 ml @ 1 mls/min HS PRN IV 02/15/18 21:00 03/17/18 20:59 Mirtazapine (Remeron Solutab) 30 mg HS PO 02/16/18 21:00 03/17/18 20:59 02/16/18 20:49 30 MG Dexamethasone (Decadron Tab) 6 mg QAM PO 02/17/18 08:00 03/19/18 07:59 Dexamethasone (Decadron Tab) 2 mg QPM PO 02/16/18 21:00 03/18/18 20:59 02/16/18 20:49 2 MG Magnesium Sulfate 100 ml @ 100 mls/hr NOW ONCE IV 02/17/18 08:45 02/17/18 09:44 UNV Review of Systems Constitutional: + weakness, + fatigue, No fever Respiratory: No cough, No shortness of breath Cardiovascular: No chest pain Abdomen: + problem reported (increasing ascites), No pain Musculoskeletal: No joint pain, No muscle pain Genitourinary - Male: No dysuria Hematologic / Lymphatic: No abnormal bleeding/bruising Physical Exam Date Time Temp Pulse Resp B/P (MAP) Pulse Ox O2 Delivery O2 Flow Rate FiO2 02/17/18 08:30 36.5 97 18 117/80 (92) 96 02/16/18 22:59 36.3 99 18 115/73 (87) 97 Room Air 02/16/18 20:00 Room Air 02/16/18 19:00 36.6 100 20 114/77 (89) 98 Room Air 02/16/18 16:00 Room Air 02/16/18 13:45 36.2 100 18 125/86 (99) 96 Room Air 02/16/18 12:44 37.0 102 18 128/87 (101) 8/1/18 12:27 36.1 102 16 121/87 (98) 96 Room Air 02/16/18 11:25 36.0 111 20 124/86 (99) 93 02/16/18 09:22 37.1 101 16 127/83 (98) 96 Room Air General Appearance: no apparent distress, + pertinent finding (chronically ill- appearing) Respiratory/Chest: lungs clear, + decreased breath sounds (at the bases) Cardiovascular: regular rate, rhythm Abdomen/GI: non tender, soft, + distended Extremities/Musculoskelatal: no pedal edema Neurologic/Psych: alert, oriented x 3 Skin: no rash Laboratory Results Last 24 Hours Test 02/17/18 05:45 White Blood Count 2.16 K/uL Red Blood Count 2.94 M/uL Hemoglobin 8.9 g/dL Hematocrit 26.7 % Mean Corpuscular Volume 90.8 fL Mean Corpuscular Hemoglobin 30.3 pg Mean Corpuscular Hemoglobin Concent 33.3 g/dl RDW Standard Deviation 55.4 fL RDW Coefficient of Variation 17.5 % Platelet Count 120 K/uL Mean Platelet Volume 8.6 fL Sodium Level 137 mmol/L Potassium Level 4.1 mmol/L Chloride Level 106 mmol/L Carbon Dioxide Level 25 mmol/L Anion Gap 7.0 mmol/L Blood Urea Nitrogen 27 mg/dl Creatinine 1.04 mg/dl Est Creatinine Clear Calc Drug Dose 119.6 ml/min Estimated GFR () 98.6 Estimated GFR (Non- 85.1 BUN/Creatinine Ratio 25.5 Random Glucose 118 mg/dl Calcium Level 7.2 mg/dl Phosphorus Level 3.2 mg/dl Magnesium Level 1.7 mg/dl Albumin 2.2 gm/dl Assessment & Plan Mr. Juárez continues to struggle with dehydration and refractory ascites. Both of these issues appear to be related to his low serum albumin. He did better during his recent hospital stay, when he was receiving IV albumin infusions. However, this is not a sustainable long-term strategy. We should request a nutrition consultation to discuss protein malnutrition. I would also arrange for a paracentesis. With regard to his cancer, he is very afraid of receiving chemotherapy as an outpatient. We discussed that this type of therapy is generally not done in the hospital, both for cost reasons and because patients who require hospitalization are typically not healthy enough to be receiving chemotherapy. He requested that we try one more cycle in the hospital. I agreed to this, with the understanding that he will receive future cycles outside the hospital and that, if he cannot, he will proceed with hospice instead. Patients with cancer and hypoalbuminemia have a dismal prognosis, as do patients treated for cancer of unknown primary. His unrelenting downward progression is also very concerning and I worry that his life expectancy, even with treatment, may be short. Since this is a new diagnosis and we have only really just begun to treat his disease, I am ok with trying more chemo, but I am very uncertain about his likelihood of benefit. I will make arrangements for treatment starting tomorrow.
[2018-02-17] MEDS: CLOPIDOGREL BISULFATE 75 MG TAB PO SCH (09:20)
--- NOTE | 2018-02-17 10:13 | Clinical Documentation Query ---
CLINICAL DOCUMENTATION QUERY Ms. STARK, In your clinical opinion is this patient being managed for: ( x ) Chemotherapy induced pancytopenia ( ) Not Agree ( ) Other explanation of clinical findings (No explanation is considered a No Response) ( ) Unable to determine ( ) Need to Discuss (Phone CDS or qliq) (No discussion is considered a No Response) The medical record reflects the following clinical findings, treatment, and risk factors. Clinical Indicators: 48 yo male presenting with weakness/dehydration. Labs on 02/17 WBC 2.16, RBC 2.94, Hgb 8.9, Hct 26.7, plts 120. These have further down-trended since admission. Initial labs: WBC 3.96, RBC 3.58, Hgb 10.7, Hct 32.4, plts 156. Last chemo 02/03/18 Treatment: monitor CBC's, hem/onc consult Risk Factors: metastatic cancer on current chemotherapy Please clarify and document your clinical opinion in the progress notes and discharge summary. Terms such as "probable", "suspected", "likely", "questionable", "possible", or "still to be ruled out" are acceptable. IF IN AGREEMENT, YOU MUST DOCUMENT ABOVE DIAGNOSTIC STATEMENT IN DAILY PROGRESS NOTES AND DISCHARGE SUMMARY. This document is not part of the patient's record. Thank You, Madhuri Hooper RN [phone]
[2018-02-17] MEDS ORDERED: METHYLPREDNISOLONE 125 MG in SYRINGE 0 ML IV PRN (10:45)
[2018-02-17] MEDS ORDERED: HYDROCORTISONE IV 100 MG in SYRINGE 0 ML IV PRN (10:45)
[2018-02-17] MEDS ORDERED: DiphenhydrAMINE HCL 50 MG/ML VIAL IV PRN (10:45)
[2018-02-17] MEDS: ALBUMIN HUMAN 25% 12.5 GM/50 ML VIAL IV SCH ×2 (11:54→12:54)
--- NOTE | 2018-02-17 11:54 | Hospitalist Progress Note ---
Hospitalist Progress Note Date of Service Feb 17, 2018. Subjective Pt evaluation today including: conversation w/ patient, physical exam, chart review, lab review, conversation w/ data migration consultant (spoke with Dr. Carson), review of inpatient medication list Pain: Mild abdominal discomfort PO Intake: Tolerating PO diet Voiding: no voiding problems Patient reports feeling better today. He states he ate 100% of his breakfast. His shortness of breath is resolved. He states he does still have some mild abdominal discomfort, but this is improved from yesterday after paracentesis. He does report some general weakness and states he has to take his time when getting up and moving around. The patient denies fevers, chills, sweats, chest pain, palpitations, claudication, cough, wheezing, shortness of breath, nausea, vomiting, dysuria, hematuria, urinary retention, paralysis, focal motor weakness , numbness and tingling. Additional Comments: See HPI for pertinent positives and negatives. All other systems reviewed and negative. Objective Vital Signs Date Time Temp Pulse Resp B/P (MAP) Pulse Ox O2 Delivery O2 Flow Rate FiO2 02/17/18 11:15 36.5 101 18 164/105 (124) 98 02/17/18 08:45 Room Air 02/17/18 08:30 36.5 97 18 117/80 (92) 96 02/16/18 22:59 36.3 99 18 115/73 (87) 97 Room Air 02/16/18 20:00 Room Air 02/16/18 19:00 36.6 100 20 114/77 (89) 98 Room Air 02/16/18 16:00 Room Air 02/16/18 13:45 36.2 100 18 125/86 (99) 96 Room Air 02/16/18 12:44 37.0 102 18 128/87 (101) 02/16/18 12:27 36.1 102 16 121/87 (98) 96 Room Air Physical Exam Notes: General appearance: Well-developed, well-nourished, no apparent distress Head: Normocephalic, atraumatic Eyes: Normal inspection, PERRL, EOMI ENT: Normal ENT inspection, hearing grossly normal, pharynx normal Neck: Supple, no JVD, trachea midline Respiratory/Chest: Lungs clear to auscultation, normal breath sounds, no respiratory distress Cardiovascular: Regular rate & rhythm, no gallop, no murmur Abdomen/GI: +Less distended today. Normal bowel sounds, non-tender, soft Extremities/Musculoskeletal: +2+ pitting edema. Normal inspection, no calf tenderness Neurological/Psych: +Depressed affect, tearful. Alert, oriented x 3 Skin: Normal color, warm/dry, no rash Laboratory Results Last 24 Hours Test 02/17/18 05:45 White Blood Count 2.16 K/uL Red Blood Count 2.94 M/uL Hemoglobin 8.9 g/dL Hematocrit 26.7 % Mean Corpuscular Volume 90.8 fL Mean Corpuscular Hemoglobin 30.3 pg Mean Corpuscular Hemoglobin Concent 33.3 g/dl RDW Standard Deviation 55.4 fL RDW Coefficient of Variation 17.5 % Platelet Count 120 K/uL Mean Platelet Volume 8.6 fL Sodium Level 137 mmol/L Potassium Level 4.1 mmol/L Chloride Level 106 mmol/L Carbon Dioxide Level 25 mmol/L Anion Gap 7.0 mmol/L Blood Urea Nitrogen 27 mg/dl Creatinine 1.04 mg/dl Est Creatinine Clear Calc Drug Dose 119.6 ml/min Estimated GFR () 98.6 Estimated GFR (Non- 85.1 BUN/Creatinine Ratio 25.5 Random Glucose 118 mg/dl Calcium Level 7.2 mg/dl Phosphorus Level 3.2 mg/dl Magnesium Level 1.7 mg/dl Albumin 2.2 gm/dl Assessment and Plan 48 y/o male with a history of HTN, HLD, recent CVA, and 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 Dehydration, weakness, protein malnutrition--stable -Creatinine remains stable, at baseline -Received NSS at 100 cc/hr x 2L -Continue Remeron 30 mg PO hs and Decadron 6 mg PO qam and 2 mg PO qpm -Nutrition consulted. 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 Carson. Inpatient chemo starting today. Ok to give IV albumin daily while inpatient to help pt feel better but this only a transient fix. Recommend nutrition consult regarding protein malnutrition. -Inpt chemo starting today Chemotherapy induced pancytopenia -CBC trending down, PLT now low at 120 -Continue to monitor while on chemo, appreciate heme/onc recs HTN, HLD--stable -Continue Lipitor 10 mg PO qd Recent CVA 10/19/17 -Continue Plavix, statin DVT prophylaxis -Enoxaparin 40 mg SC q24h -SCDs Code Status -Level I, FULL RESUSCITATION STATUS Dispo -From home -Pt reports some general weakness, PT/OT evaluate and treat
[2018-02-17] MEDS ORDERED: DEXAMETHASONE IV SCH (12:00)
[2018-02-17] MEDS ORDERED: PALONOSETRON IV 0.25 MG in SYRINGE 0 ML IV SCH (12:00)
[2018-02-17] MEDS ORDERED: SODIUM CHLORIDE 0.9% IV SCH (12:00)
[2018-02-17] MEDS ORDERED: LEUCOVORIN CALCIUM IV SCH (13:00)
[2018-02-17] MEDS ORDERED: DEXTROSE 5% IV SCH ×2 (13:00)
[2018-02-17] MEDS ORDERED: IRINOTECAN IV SCH (13:00)
[2018-02-17] MEDS ORDERED: FOSAPREPITANT DIMEGLUMINE INJ 150 MG in SODIUM CHLORIDE 0.9% 150ML 145 ML IV SCH (14:00)
[2018-02-17] MEDS: ENOXAPARIN 40 MG/0.4 ML SYR SQ SCH (14:19)
[2018-02-17] MEDS ORDERED: FLUOROURACIL IV SCH (14:45)
[2018-02-17] MEDS: FLUOROURACIL IV SCH (17:45)
[2018-02-17] MEDS: SODIUM CHLORIDE 0.9% IV SCH (17:45)
[2018-02-17] MEDS: MIRTAZAPINE SOLTAB 15 MG PO SCH (20:12)
[2018-02-17] MEDS: LORAZEPAM INJ 0.5 MG in SYRINGE 0.75 ML IV PRN (21:02)
[2018-02-18 04:45] VITALS: BP 112/72; PULSE 87; TEMP 36.5; O2SAT 97
[2018-02-18 06:05] LABS: HEMATOCRIT 29.6 % (42-52); HEMOGLOBIN 9.7 g/dL (14.0-18.0); MEAN CELL VOLUME 91.1 fL (80-100); MEAN CORPUSCULAR HEMOGLOBIN 29.8 pg (25-34); MEAN CORPUSCULAR HGB CONC 32.8 g/dl (32-36); MEAN PLATELET VOLUME 8.9 fL (7.4-10.4); NUCLEATED RED BLOOD CELL ABS 0.02 K/uL (0-0); PLATELET COUNT 167 K/uL (130-400); RED CELL DISTRIBUTION WIDTH CV 17.5 % (11.5-14.5); RED CELL DISTRIBUTION WIDTH SD 56.8 fL (36.4-46.3); WHITE BLOOD COUNT 2.41 K/uL (4.8-10.8)
[2018-02-18] MEDS: LOPERAMIDE HCL 2 MG CAP PO SCH ×4 (06:06→20:44)
[2018-02-18] MEDS: CALCIUM CARBONATE 1250MG TAB PO SCH ×9 (06:06→22:00)
[2018-02-18] MEDS: METOCLOPRAMIDE HCL 10 MG TAB PO SCH ×4 (06:06→20:43)
[2018-02-18] MEDS: LORAZEPAM 0.5 MG TAB PO PRN ×3 (06:07→14:12)
[2018-02-18] MEDS: ONDANSETRON INJ 2 MG/ML 2 ML VIAL IV PRN ×3 (06:07→17:46)
[2018-02-18 06:53] LABS: ALBUMIN 2.4 gm/dl (3.4-5.0); CALCIUM 7.4 mg/dl (8.5-10.1); CREATININE 1.2 mg/dl (0.60-1.40); PHOSPHORUS 3.9 mg/dl (2.5-4.9); POTASSIUM 4.5 mmol/L (3.5-5.1)
[2018-02-18] MEDS: BOOST BREEZE NUTRITION DRINK 1 BOX PO SCH ×2 (08:00→20:44)
[2018-02-18] MEDS: LORATADINE 10 MG TAB PO SCH (08:25)
[2018-02-18] MEDS: CHOLECALCIFEROL 1000 INTER.UNIT TAB PO SCH (08:25)
[2018-02-18] MEDS: MAGNESIUM OXIDE 400 MG TAB PO SCH ×2 (08:26→20:48)
[2018-02-18] MEDS: POTASSIUM CHLORIDE 20 MEQ TABCR PO SCH (08:27)
[2018-02-18] MEDS: PANTOprazole SOD 40 MG TAB PO SCH (08:49)
[2018-02-18] MEDS: CLOPIDOGREL BISULFATE 75 MG TAB PO SCH (08:50)
[2018-02-18] MEDS: DEXAMETHASONE 4 MG TAB PO SCH ×2 (08:50→20:46)
[2018-02-18] MEDS: ATORVASTATIN 10 MG TAB PO SCH (08:50)
[2018-02-18] MEDS: MONTELUKAST SOD 10 MG TAB PO SCH (08:50)
[2018-02-18] MEDS ORDERED: MAGNESIUM SULFATE 1GM / D5W 100 ML IV ONE (09:15)
[2018-02-18] MEDS: ALBUMIN HUMAN 25% 12.5 GM/50 ML VIAL IV SCH ×5 (09:27→23:18)
[2018-02-18 09:51] VITALS: BP 113/77; PULSE 96; TEMP 36.6; O2SAT 96
[2018-02-18 11:53] VITALS: BP 116/89; PULSE 92; TEMP 36.2; O2SAT 96
[2018-02-18] MEDS: ENOXAPARIN 40 MG/0.4 ML SYR SQ SCH (14:10)
[2018-02-18] MEDS: FLUOROURACIL IV SCH (14:15)
[2018-02-18] MEDS: SODIUM CHLORIDE 0.9% IV SCH (14:15)
[2018-02-18 14:55] VITALS: BP 109/82; PULSE 97; TEMP 36.7; O2SAT 97
--- NOTE | 2018-02-18 15:16 | Hospitalist Progress Note ---
Hospitalist Progress Note Date of Service Feb 18, 2018. Subjective Pt evaluation today including: conversation w/ patient, physical exam, chart review, lab review, review of inpatient medication list Pain: Mild abdominal discomfort PO Intake: Tolerating PO diet Voiding: no voiding problems Patient states he has some diffuse abdominal discomfort today and feels that some fluid is reaccumulating. He notes some dyspnea on exertion but denies shortness of breath at rest. The patient denies fevers, chills, sweats, chest pain, palpitations, claudication, cough, wheezing, nausea, vomiting, dysuria, hematuria, urinary retention, paralysis, weakness, numbness and tingling. Additional Comments: See HPI for pertinent positives and negatives. All other systems reviewed and negative. Objective Vital Signs Date Time Temp Pulse Resp B/P (MAP) Pulse Ox O2 Delivery O2 Flow Rate FiO2 02/18/18 14:55 36.7 97 20 109/82 (91) 97 Room Air 02/18/18 11:53 36.2 92 22 116/89 (98) 96 Room Air 02/18/18 09:51 36.6 96 20 113/77 (89) 96 02/18/18 08:00 Room Air 02/18/18 04:45 36.5 87 18 112/72 (85) 97 Room Air 02/18/18 00:01 Room Air 02/17/18 22:35 36.7 95 18 106/72 (83) 96 Room Air 02/17/18 19:25 36.9 88 18 124/81 (95) 96 Room Air 02/17/18 17:09 36.8 87 24 149/113 (125) 02/17/18 16:00 Room Air 02/17/18 15:30 36.5 97 18 122/81 (95) 96 Room Air Physical Exam Notes: General appearance: Well-developed, well-nourished, no apparent distress Head: Normocephalic, atraumatic Eyes: Normal inspection, PERRL, EOMI ENT: Normal ENT inspection, hearing grossly normal, pharynx normal Neck: Supple, no JVD, trachea midline Respiratory/Chest: Lungs clear to auscultation, normal breath sounds, no respiratory distress Cardiovascular: Regular rate & rhythm, no gallop, no murmur Abdomen/GI: +Distended. Normal bowel sounds, non-tender Extremities/Musculoskeletal: +1+ pitting edema. Normal inspection, no calf tenderness Neurological/Psych: +Depressed affect. Alert, oriented x 3 Skin: Normal color, warm/dry, no rash Laboratory Results Last 24 Hours Test 02/18/18 05:54 White Blood Count 2.41 K/uL Red Blood Count 3.25 M/uL Hemoglobin 9.7 g/dL Hematocrit 29.6 % Mean Corpuscular Volume 91.1 fL Mean Corpuscular Hemoglobin 29.8 pg Mean Corpuscular Hemoglobin Concent 32.8 g/dl RDW Standard Deviation 56.8 fL RDW Coefficient of Variation 17.5 % Platelet Count 167 K/uL Mean Platelet Volume 8.9 fL Nucleated RBC Absolute Count (auto) 0.02 K/uL Nucleated Red Blood Cells % 0.6 % Sodium Level 137 mmol/L Potassium Level 4.5 mmol/L Chloride Level 105 mmol/L Carbon Dioxide Level 24 mmol/L Anion Gap 8.0 mmol/L Blood Urea Nitrogen 28 mg/dl Creatinine 1.20 mg/dl Est Creatinine Clear Calc Drug Dose 102.1 ml/min Estimated GFR () 83.0 Estimated GFR (Non- 71.6 BUN/Creatinine Ratio 23.5 Random Glucose 151 mg/dl Calcium Level 7.4 mg/dl Phosphorus Level 3.9 mg/dl Magnesium Level 1.7 mg/dl Albumin 2.4 gm/dl Assessment and Plan 48 y/o male with a history of HTN, HLD, recent CVA, and 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 Dehydration, weakness, protein malnutrition--stable -Creatinine remains stable, at baseline -Received NSS at 100 cc/hr x 2L -Continue Remeron 30 mg PO hs and Decadron 6 mg PO qam and 2 mg PO qpm -Nutrition consulted. Continue Boost BID, snacks TID Ascites--stable -Ultrasound guided paracentesis performed 02/16, 4.6L fluid removed -Therapeutic only as diagnostic studies done last week and no s/s infection now -Albumin 25 gm IV given pior and s/p paracentesis -Albumin 25 gm IV daily, first dose today before chemo -Albumin 2.4 on 02/18, up from 2.2 -Pt very concerned about fluid reaccumulating, requesting ultrasound -Limited abdominal ultrasound for ascites Hypomagnesemia--stable -Magnesium 1.7 on 02/18, stable from 02/17 -Magnesium sulfate 1 gm IV x1 -Continue home mag oxide 600 mg PO BID Metastatic cancer, 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 Ok to give IV albumin daily while inpatient to help pt feel better but this only a transient fix. Recommend nutrition consult regarding protein malnutrition. -Inpt chemo, day #2 Chemotherapy induced pancytopenia--improving -CBC counts improved on 02/18, PLT now WNL -Continue to monitor while on chemo, appreciate heme/onc recs HTN, HLD--stable -Continue Lipitor 10 mg PO qd Recent CVA 10/19/17 -Continue Plavix, statin DVT prophylaxis -Enoxaparin 40 mg SC q24h -SCDs Code Status -Level I, FULL RESUSCITATION STATUS Dispo -From home
--- NOTE | 2018-02-18 16:07 | DIAGNOSTIC IMAGING REPORT ---
ASCITES-ABDOMEN LIMITED CLINICAL HISTORY: assess for re-accumulation of ascites ascites TECHNIQUE: Ultrasound COMPARISON STUDY: A1 2018 FINDINGS: Ascites within the right upper and right lower quadrant regions. No significant left flank ascites. IMPRESSION: moderate right flank ascites. No significant left-sided ascites. The above report was generated using voice recognition software. It may contain grammatical, syntax or spelling errors. Electronically signed by: Wang Rutledge M.D. 02/18/2018 4:06 PM Dictated Date/Time: 02/18/2018 4:05 PM
[2018-02-18] MEDS: LORAZEPAM INJ 0.5 MG in SYRINGE 0.75 ML IV PRN ×2 (17:41→23:36)
[2018-02-18 17:59] VITALS: BP 130/89; PULSE 109; TEMP 36.8; O2SAT 95
[2018-02-18] MEDS ORDERED: ZOLPIDEM TARTRATE 5 MG TAB PO PRN (19:00)
--- NOTE | 2018-02-18 19:43 | Procedure Note ---
Procedure Note Date of Service Feb 18, 2018. Procedure Note Critical Care Medicine Procedure Date: February 18, 2018 Procedure: Paracentesis Pre-procedure Diagnosis: Metastatic ascites Post-procedure Diagnosis: same as above Prior to Procedure: Informed Consent: The risks, benefits, indications, potential complications, and alternatives were explained to the patient and informed consent obtained. Attending Staff: Augustine Flores DO Indications: The patient is a 48 y/o male patient with metastatic carcinoma requiring paracentesis for symptomatology The identity of the patient was confirmed and a bedside time out was performed. Description of Procedure: Patient positioned, the RLQ of the abdomen was prepped and draped in usual sterile fashion. Ultrasound guidance was used and appropriate fluid pocket was identified. 7 mL of 1% Lidocaine without epinephrine was used to anesthetize the area. A needle was introduced into the peritoneal space and fluid was removed. Total Fluid Removed: 9250 ml Color of Fluid: White Sent for: Gram Stain, culture, cell count, glucose, protein, cholesterol, triglycerides Complications: None Estimated blood loss: Trace Critical Care Medicine Point of Care Bedside Ultrasound Procedure: Procedural Ultrasound Procedure Date: February 18, 2018 Indication: malignant ascites Attending: Jean Flores DO Organs Examined: Small Bowel, ascitic fluid Impression: Pocket visualized in RLQ >2 cm distance Images obtained are saved for permanent record Last Resulted CBC 02/18/18 05:54 Last Resulted BMP 02/18/18 05:54 Last 24 Hours Test 02/18/18 05:54 White Blood Count 2.41 K/uL Red Blood Count 3.25 M/uL Hemoglobin 9.7 g/dL Hematocrit 29.6 % Mean Corpuscular Volume 91.1 fL Mean Corpuscular Hemoglobin 29.8 pg Mean Corpuscular Hemoglobin Concent 32.8 g/dl RDW Standard Deviation 56.8 fL RDW Coefficient of Variation 17.5 % Platelet Count 167 K/uL Mean Platelet Volume 8.9 fL Nucleated RBC Absolute Count (auto) 0.02 K/uL Nucleated Red Blood Cells % 0.6 % Sodium Level 137 mmol/L Potassium Level 4.5 mmol/L Chloride Level 105 mmol/L Carbon Dioxide Level 24 mmol/L Anion Gap 8.0 mmol/L Blood Urea Nitrogen 28 mg/dl Creatinine 1.20 mg/dl Est Creatinine Clear Calc Drug Dose 102.1 ml/min Estimated GFR () 83.0 Estimated GFR (Non- 71.6 BUN/Creatinine Ratio 23.5 Random Glucose 151 mg/dl Calcium Level 7.4 mg/dl Phosphorus Level 3.9 mg/dl Magnesium Level 1.7 mg/dl Albumin 2.4 gm/dl INR reviewed from admission
[2018-02-18] MEDS: MIRTAZAPINE SOLTAB 15 MG PO SCH (20:50)
[2018-02-18 23:44] VITALS: BP 98/64; PULSE 92; TEMP 36.7; O2SAT 95
[2018-02-19 00:03] VITALS: BP 113/72; PULSE 97; TEMP 36.7; O2SAT 95
[2018-02-19 00:30] VITALS: BP 115/76; PULSE 90; TEMP 36.6
[2018-02-19] MEDS: ALBUMIN HUMAN 25% 12.5 GM/50 ML VIAL IV SCH ×5 (00:38→09:25)
[2018-02-19 06:06] LABS: HEMATOCRIT 26.6 % (42-52); HEMOGLOBIN 8.8 g/dL (14.0-18.0); MEAN CELL VOLUME 91.1 fL (80-100); MEAN CORPUSCULAR HEMOGLOBIN 30.1 pg (25-34); MEAN CORPUSCULAR HGB CONC 33.1 g/dl (32-36); MEAN PLATELET VOLUME 8.4 fL (7.4-10.4); PLATELET COUNT 170 K/uL (130-400); RED CELL DISTRIBUTION WIDTH CV 17.4 % (11.5-14.5); RED CELL DISTRIBUTION WIDTH SD 56.7 fL (36.4-46.3); WHITE BLOOD COUNT 1.74 K/uL (4.8-10.8)
[2018-02-19] MEDS: CALCIUM CARBONATE 1250MG TAB PO SCH ×9 (06:17→21:22)
[2018-02-19] MEDS: METOCLOPRAMIDE HCL 10 MG TAB PO SCH ×4 (06:17→20:59)
[2018-02-19 06:26] LABS: ALBUMIN 3.2 gm/dl (3.4-5.0); CALCIUM 7.8 mg/dl (8.5-10.1); CREATININE 1.18 mg/dl (0.60-1.40); PHOSPHORUS 3.7 mg/dl (2.5-4.9); POTASSIUM 4.2 mmol/L (3.5-5.1)
[2018-02-19 06:28] VITALS: BMI 31.1
[2018-02-19 07:06] VITALS: BP 115/78; PULSE 94; TEMP 36.9; O2SAT 97
[2018-02-19] MEDS: BOOST BREEZE NUTRITION DRINK 1 BOX PO SCH ×2 (08:31→20:56)
[2018-02-19] MEDS: MAGNESIUM OXIDE 400 MG TAB PO SCH ×2 (08:32→20:57)
[2018-02-19] MEDS: DEXAMETHASONE 4 MG TAB PO SCH ×2 (08:32→20:58)
[2018-02-19] MEDS: PANTOprazole SOD 40 MG TAB PO SCH (08:32)
[2018-02-19] MEDS: MONTELUKAST SOD 10 MG TAB PO SCH (08:32)
[2018-02-19] MEDS: LOPERAMIDE HCL 2 MG CAP PO SCH ×4 (08:32→20:56)
[2018-02-19] MEDS: ATORVASTATIN 10 MG TAB PO SCH (08:33)
[2018-02-19] MEDS: CLOPIDOGREL BISULFATE 75 MG TAB PO SCH (08:33)
[2018-02-19] MEDS: CHOLECALCIFEROL 1000 INTER.UNIT TAB PO SCH (08:34)
[2018-02-19] MEDS: POTASSIUM CHLORIDE 20 MEQ TABCR PO SCH (08:34)
[2018-02-19] MEDS: LORATADINE 10 MG TAB PO SCH (08:37)
[2018-02-19] MEDS: ONDANSETRON INJ 2 MG/ML 2 ML VIAL IV PRN (08:41)
--- NOTE | 2018-02-19 10:21 | Hospitalist Progress Note ---
Hospitalist Progress Note Date of Service Feb 19, 2018. Subjective Pt evaluation today including: conversation w/ patient, physical exam, chart review, lab review, review of studies, conversation w/ gis consultant (spoke w/Dr. Sunshine Sparks), review of inpatient medication list Pain: None PO Intake: Tolerating PO diet, good appetite Voiding: no voiding problems Patient reports feeling well this morning, just fatigued from the frequent checks overnight while on chemo. He states he feels much better s/p paracentesis. He denies any shortness of breath or abdominal pain. He is tolerating PO diet very well and had a robust appetite this morning. The patient still voices concerns about going home today however, and wants further observation to ensure he is feeling good/safe to go home. He is concerned as he had a syncopal episode/code purple last admission and does not want this to happen again. Pt given reassurance at this time. The patient denies fevers, chills, sweats, chest pain, palpitations, claudication, cough, wheezing, shortness of breath, nausea, vomiting, abdominal pain, dysuria, hematuria, urinary retention, paralysis, weakness, numbness and tingling. Additional Comments: See HPI for pertinent positives and negatives. All other systems reviewed and negative. Objective Vital Signs Date Time Temp Pulse Resp B/P (MAP) Pulse Ox O2 Delivery O2 Flow Rate FiO2 02/19/18 08:30 Room Air 02/19/18 07:06 36.9 94 18 115/78 (90) 97 Room Air 02/19/18 05:04 Room Air 02/19/18 00:30 36.6 90 115/76 (89) 02/19/18 00:03 36.7 97 20 113/72 (86) 95 Room Air 02/18/18 23:44 36.7 92 20 98/64 (75) 95 Room Air 02/18/18 17:59 36.8 109 22 130/89 (103) 95 Room Air 02/18/18 14:55 36.7 97 20 109/82 (91) 97 Room Air 02/18/18 11:53 36.2 92 22 116/89 (98) 96 Room Air Physical Exam Notes: General appearance: Well-developed, well-nourished, no apparent distress Head: Normocephalic, atraumatic Eyes: Normal inspection, PERRL, EOMI ENT: Normal ENT inspection, hearing grossly normal, pharynx normal Neck: Supple, no JVD, trachea midline Respiratory/Chest: Lungs clear to auscultation, normal breath sounds, no respiratory distress Cardiovascular: Regular rate & rhythm, no gallop, no murmur Abdomen/GI: +Significantly less distended today. Normal bowel sounds, non- tender Extremities/Musculoskeletal: Normal inspection, no calf tenderness, no pedal edema Neurological/Psych: +Pt in good spirits today. Alert, oriented x 3 Skin: Normal color, warm/dry, no rash Laboratory Results Last 24 Hours Test 02/18/18 18:35 02/19/18 05:40 Peritoneal Fluid Color WHITE Peritoneal Fluid Appearance TURBID Peritoneal Fluid WBC 124 /uL Peritoneal Fluid RBC < 3000 /uL Peritoneal Fld Mononuclear WBCs (%) 52.6 % Peritoneal Fld Polynuclear WBCs (%) 47.4 % Peritoneal Fluid Total Protein 1.9 g/dl Peritoneal Fluid Albumin 1.1 g/dl Peritoneal Fluid Triglycerides 2564 mg/dl White Blood Count 1.74 K/uL Red Blood Count 2.92 M/uL Hemoglobin 8.8 g/dL Hematocrit 26.6 % Mean Corpuscular Volume 91.1 fL Mean Corpuscular Hemoglobin 30.1 pg Mean Corpuscular Hemoglobin Concent 33.1 g/dl RDW Standard Deviation 56.7 fL RDW Coefficient of Variation 17.4 % Platelet Count 170 K/uL Mean Platelet Volume 8.4 fL Sodium Level 137 mmol/L Potassium Level 4.2 mmol/L Chloride Level 105 mmol/L Carbon Dioxide Level 25 mmol/L Anion Gap 7.0 mmol/L Blood Urea Nitrogen 33 mg/dl Creatinine 1.18 mg/dl Est Creatinine Clear Calc Drug Dose 103.9 ml/min Estimated GFR () 84.7 Estimated GFR (Non- 73.0 BUN/Creatinine Ratio 28.1 Random Glucose 145 mg/dl Calcium Level 7.8 mg/dl Phosphorus Level 3.7 mg/dl Magnesium Level 1.9 mg/dl Albumin 3.2 gm/dl Diagnostic Results Reviewed the following studies and agree with interpretation as follows: ASCITES-ABDOMEN LIMITED CLINICAL HISTORY: assess for re-accumulation of ascites ascites TECHNIQUE: Ultrasound COMPARISON STUDY: A1 2018 FINDINGS: Ascites within the right upper and right lower quadrant regions. No significant left flank ascites. IMPRESSION: moderate right flank ascites. No significant left-sided ascites. 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 Dehydration, weakness, protein malnutrition--stable -Creatinine remains stable, at baseline -Received NSS at 100 cc/hr x 2L -Continue Remeron 30 mg PO hs and Decadron 6 mg PO qam and 2 mg PO qpm -Nutrition consulted. Continue Boost BID, snacks TID Ascites--improved -Ultrasound guided paracentesis performed 02/16, 4.6L fluid removed -Therapeutic only as diagnostic studies done last week and no s/s infection now -Albumin 25 gm IV given pior and s/p paracentesis -Albumin 25 gm IV daily -Abdomen ultrasound 02/18 shows moderate right flank ascites -[facility] Dr. 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 Carson. Pt ok to discharge. Will have close outpt follow up Tuesdays and to evaluate need for IV fluid, paracentesis, and for outpatient chemo. -Chemo to be completed this afternoon Chemotherapy induced pancytopenia--stable -WBC, RBC, Hgb trended down from 02/18, PLT remain stable and WNL -Continue to monitor while on chemo, appreciate heme/onc recs HTN, HLD--stable -Continue Lipitor 10 mg PO qd Recent CVA 10/19/17 -Continue Plavix, statin DVT prophylaxis -Enoxaparin 40 mg SC q24h -SCDs Code Status -Level I, FULL RESUSCITATION STATUS Dispo -From home w/services -Pt stable to go home today but does not feel comfortable with this given his frequent hospitalizations and recent syncopal episode. Reassured him that his vitals and labwork looks good and he should be stable until Wednesday outpatient follow up visit. Due to pt's concerns, will monitor for one more day, anticipated discharge tomorrow
--- NOTE | 2018-02-19 10:38 | Hematology/Oncology Prog Note ---
Hematology/Onc Progress Note Date of Service Feb 19, 2018. 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 Refractory ascites Dehydration Medications Medications Administered Medications (Trade) Dose Ordered Sig/Suraj Route Start Time Stop Time Status Last Admin Dose Admin Sodium Chloride 500 ml @ 999 mls/hr Q31M STAT IV 02/15/18 10:05 02/15/18 10:35 DC 02/15/18 10:23 999 MLS/HR Ondansetron HCl (Zofran Inj) 4 mg Q6H PRN IV 02/15/18 10:30 03/17/18 10:29 02/19/18 08:41 4 MG Magnesium Sulfate 100 ml @ 100 mls/hr Q1H IV 02/15/18 11:30 02/15/18 13:37 DC 02/15/18 15:52 100 MLS/HR Atorvastatin Calcium (Lipitor Tab) 10 mg DAILY PO 02/16/18 08:00 03/18/18 08:59 02/19/18 08:33 10 MG Calcium Carbonate (oS-Oli 500 TAB) 1,250 mg Q2HWA PO 02/15/18 12:00 03/17/18 11:59 02/19/18 08:33 1,250 MG Cholecalciferol (Vitamin D Tab) 2,000 inter.unit QAM PO 02/16/18 08:00 03/18/18 08:59 02/19/18 08:34 2,000 INTER.UNIT Clopidogrel Bisulfate (plAVix TAB) 75 mg DAILY PO 02/16/18 08:00 03/18/18 08:59 02/19/18 08:33 75 MG Dexamethasone (Decadron Tab) 4 mg QAM PO 02/16/18 08:00 02/16/18 18:14 DC 02/16/18 08:07 4 MG Enoxaparin Sodium (Lovenox Inj) 40 mg Q24H SQ 02/15/18 14:00 03/17/18 13:59 02/18/18 14:10 40 MG Loperamide HCl (Imodium Cap) 2 mg QID PO 02/15/18 12:14 03/17/18 12:59 02/19/18 08:32 2 MG Loratadine (Claritin Tab) 10 mg DAILY PO 02/16/18 08:00 03/18/18 08:59 02/19/18 08:37 10 MG Lorazepam (Ativan Tab) 0.5 mg Q4 PRN PO 02/15/18 11:15 03/17/18 11:14 02/18/18 14:12 0.5 MG Magnesium Oxide (Mag-Ox Tab) 600 mg BID PO 02/15/18 20:00 03/17/18 20:59 02/19/18 08:32 600 MG Metoclopramide HCl (Reglan Tab) 10 mg ACHS PO 02/15/18 16:30 03/17/18 16:29 02/19/18 06:17 10 MG Mirtazapine (Remeron Solutab) 15 mg HS PO 02/15/18 21:00 02/16/18 18:14 DC 02/15/18 20:54 15 MG Montelukast Sodium (Singulair Tab) 10 mg DAILY PO 02/16/18 08:00 03/18/18 08:59 02/19/18 08:32 10 MG Pantoprazole Sodium (Protonix Tab) 40 mg DAILY PO 02/16/18 08:00 03/18/18 08:59 02/19/18 08:32 40 MG Potassium Chloride (Klor-Con Tab) 40 meq QAM PO 02/16/18 08:00 03/18/18 08:59 02/19/18 08:34 40 MEQ Enteral Nutritional Formula (Boost Breeze Nutritional Drink) 1 box BID PO 02/15/18 20:00 03/17/18 20:59 02/17/18 09:01 1 BOX Sodium Chloride 1,000 ml @ 100 mls/hr Q10H IV 02/15/18 11:15 02/16/18 07:14 DC 02/15/18 21:15 100 MLS/HR Lorazepam (Ativan Inj) 0.5 mg NOW STAT IV 02/15/18 11:38 02/15/18 11:56 DC 02/15/18 12:41 0.5 MG Heparin Sodium (Porcine) (Heparin 10 Unit/ ml 5 ml Flush) 5 ml PRN PRN FLUSH 02/15/18 14:15 03/17/18 14:14 02/19/18 05:40 5 ML Lorazepam (Ativan Inj) 0.5 mg HS PRN IV 02/15/18 16:30 03/17/18 16:29 02/16/18 20:51 0.5 MG Lorazepam 0.5 mg/ Syringe 1 ml @ 1 mls/min HS PRN IV 02/15/18 21:00 03/17/18 20:59 02/18/18 23:36 1 MLS/MIN Magnesium Sulfate 100 ml @ 100 mls/hr TODAY@0915 ONCE IV 02/16/18 09:15 02/16/18 10:14 DC 02/16/18 10:24 100 MLS/HR Albumin Human (Albumin 25%) 12.5 gm TODAY@1230,1300 IV 02/16/18 12:30 02/16/18 13:01 DC 02/16/18 12:46 12.5 GM Albumin Human (Albumin 25%) 12.5 gm TODAY@1400,1430 IV 02/16/18 14:00 02/16/18 18:00 DC 02/16/18 17:43 12.5 GM Mirtazapine (Remeron Solutab) 30 mg HS PO 02/16/18 21:00 03/17/18 20:59 02/18/18 20:50 30 MG Dexamethasone (Decadron Tab) 6 mg QAM PO 02/17/18 08:00 03/19/18 07:59 02/19/18 08:32 6 MG Dexamethasone (Decadron Tab) 2 mg QPM PO 02/16/18 21:00 03/18/18 20:59 02/18/18 20:46 2 MG Magnesium Sulfate 100 ml @ 100 mls/hr NOW ONCE IV 02/17/18 08:45 02/17/18 09:44 DC 02/17/18 09:20 100 MLS/HR Irinotecan HCl 400 mg/Irinotecan HCl 40 mg/Dextrose 572 ml @ 380 mls/hr TODAY@1300 IV 02/17/18 13:00 02/17/18 23:59 DC 02/17/18 15:48 380 MLS/HR Leucovorin Calcium 984 mg/ Dextrose 149.2 ml @ 100 mls/hr TODAY@1300 IV 02/17/18 13:00 02/17/18 23:59 DC 02/17/18 15:48 100 MLS/HR Fluorouracil 2950 mg/Sodium Chloride 1,059 ml @ 46 mls/hr Q23H IV 02/17/18 15:00 02/19/18 12:59 02/18/18 14:15 46 MLS/HR Fluorouracil 980 mg/Syringe 19.6 ml @ 5 mls/min TODAY@1445 IV 02/17/18 14:45 02/17/18 23:59 DC 02/17/18 17:45 5 MLS/MIN Dexamethasone Sodium Phosphate 10 mg/Sodium Chloride 27.5 ml @ 82.5 mls/hr TODAY@1200 IV 02/17/18 12:00 02/17/18 23:59 DC 02/17/18 14:01 82.5 MLS/HR Palonosetron 0.25 mg/Syringe 5 ml @ 10 mls/min TODAY@1200 IV 02/17/18 12:00 02/17/18 23:59 DC 02/17/18 14:01 10 MLS/MIN Albumin Human (Albumin 25%) 12.5 gm TODAY@1115,1130 IV 02/17/18 11:15 02/17/18 11:31 DC 02/17/18 12:54 12.5 GM Fosaprepitant 150 mg/Sodium Chloride 150 ml @ 300 mls/hr TODAY@1400 IV 02/17/18 14:00 02/17/18 23:59 DC 02/17/18 14:01 300 MLS/HR Magnesium Sulfate 100 ml @ 100 mls/hr TODAY@0915 ONCE IV 02/18/18 09:15 02/18/18 10:14 DC 02/18/18 11:58 100 MLS/HR Albumin Human (Albumin 25%) 12.5 gm DAILY@0900,1000 IV 02/18/18 09:00 02/21/18 08:59 02/19/18 09:25 12.5 GM Albumin Human (Albumin 25%) 12.5 gm Q1H IV 02/18/18 18:30 02/18/18 20:29 DC 02/18/18 20:40 12.5 GM Albumin Human (Albumin 25%) 12.5 gm Q1H IV 02/18/18 21:00 02/18/18 22:59 DC 02/19/18 00:38 12.5 GM Albumin Human (Albumin 25%) 12.5 gm Q1H IV 02/18/18 23:30 02/19/18 01:29 DC 02/19/18 02:32 12.5 GM Subjective Mr. Juárez feels better today after an LVP yesterday, where they took off 9L of ascites. He is finishing his chemotherapy today. He had some diarrhea but this is improved with imodium. He otherwise looks and feels mostly stable. Review of Systems: Constitutional: + weakness, + fatigue, No fever ENT: No unusual epistaxis Respiratory: No cough, No shortness of breath Cardiovascular: No chest pain Abdomen: + problem reported (improved distention), No pain Musculoskeletal: No joint pain, No muscle pain Male : No dysuria Heme: No abnormal bleeding/bruising Vital Signs Vital Signs Past 12 Hours Date Time Temp Pulse Resp B/P (MAP) Pulse Ox O2 Delivery O2 Flow Rate FiO2 02/19/18 08:30 Room Air 02/19/18 07:06 36.9 94 18 115/78 (90) 97 Room Air 02/19/18 05:04 Room Air 02/19/18 00:30 36.6 90 115/76 (89) 02/19/18 00:03 36.7 97 20 113/72 (86) 95 Room Air 02/18/18 23:44 36.7 92 20 98/64 (75) 95 Room Air Physical Exam Constitutional: Level of Distress: NAD, chronically ill Psychiatric: Mental Status: active & alert Orientation: oriented except where noted Lungs: Respiratory Effort: no dyspnea Auscuitation: breath sounds normal Cardiovascular: Heart Auscultation: RRR Abdomen: Inspection & Palpation: soft, non-distended, no tenderness, guarding & rebound Extremities: no edema Laboratory Last 24 Hours Test 02/18/18 18:35 02/19/18 05:40 Peritoneal Fluid Color WHITE Peritoneal Fluid Appearance TURBID Peritoneal Fluid WBC 124 /uL Peritoneal Fluid RBC < 3000 /uL Peritoneal Fld Mononuclear WBCs (%) 52.6 % Peritoneal Fld Polynuclear WBCs (%) 47.4 % Peritoneal Fluid Total Protein 1.9 g/dl Peritoneal Fluid Albumin 1.1 g/dl Peritoneal Fluid Triglycerides 2564 mg/dl White Blood Count 1.74 K/uL Red Blood Count 2.92 M/uL Hemoglobin 8.8 g/dL Hematocrit 26.6 % Mean Corpuscular Volume 91.1 fL Mean Corpuscular Hemoglobin 30.1 pg Mean Corpuscular Hemoglobin Concent 33.1 g/dl RDW Standard Deviation 56.7 fL RDW Coefficient of Variation 17.4 % Platelet Count 170 K/uL Mean Platelet Volume 8.4 fL Sodium Level 137 mmol/L Potassium Level 4.2 mmol/L Chloride Level 105 mmol/L Carbon Dioxide Level 25 mmol/L Anion Gap 7.0 mmol/L Blood Urea Nitrogen 33 mg/dl Creatinine 1.18 mg/dl Est Creatinine Clear Calc Drug Dose 103.9 ml/min Estimated GFR () 84.7 Estimated GFR (Non- 73.0 BUN/Creatinine Ratio 28.1 Random Glucose 145 mg/dl Calcium Level 7.8 mg/dl Phosphorus Level 3.7 mg/dl Magnesium Level 1.9 mg/dl Albumin 3.2 gm/dl Assessment & Plan Mr. Juárez will finish his second cycle of chemotherapy today. I think he should be able to go home later today, though he prefers to leave in the morning, given that he's had issues with chemo in the past. This is likely also fine. He will follow up in my office for bloodwork and possible IV fluids on Wednesday and of next week. We will arrange for outpatient paracentesis as needed. He will also need to continue working on his nutrition, as his profound hypoalbuminemia is the bulk of the source of his ascites.
[2018-02-19 11:39] VITALS: BP 106/68; PULSE 93; TEMP 36.9; O2SAT 95
[2018-02-19] MEDS: ENOXAPARIN 40 MG/0.4 ML SYR SQ SCH (14:22)
[2018-02-19] MEDS: LORAZEPAM 0.5 MG TAB PO PRN (14:22)
[2018-02-19 15:01] VITALS: BP 119/78; PULSE 96; TEMP 36.5; O2SAT 98
[2018-02-19 19:20] VITALS: BP 116/75; PULSE 103; TEMP 36.7; O2SAT 97
[2018-02-19] MEDS: MIRTAZAPINE SOLTAB 15 MG PO SCH (20:59)
[2018-02-19] MEDS: LORAZEPAM INJ 0.5 MG in SYRINGE 0.75 ML IV PRN (21:22)
[2018-02-20] MEDS: ONDANSETRON INJ 2 MG/ML 2 ML VIAL IV PRN (00:16)
[2018-02-20 04:27] VITALS: BP 145/105; PULSE 115; TEMP 36.5; O2SAT 96
[2018-02-20] MEDS: LORAZEPAM 0.5 MG TAB PO PRN ×2 (06:11→14:33)
[2018-02-20] MEDS: METOCLOPRAMIDE HCL 10 MG TAB PO SCH ×4 (06:12→21:22)
[2018-02-20] MEDS: CALCIUM CARBONATE 1250MG TAB PO SCH ×10 (06:12→21:25)
[2018-02-20 06:27] LABS: HEMATOCRIT 32.6 % (42-52); HEMOGLOBIN 10.4 g/dL (14.0-18.0); MEAN CELL VOLUME 92.6 fL (80-100); MEAN CORPUSCULAR HEMOGLOBIN 29.5 pg (25-34); MEAN CORPUSCULAR HGB CONC 31.9 g/dl (32-36); MEAN PLATELET VOLUME 8.7 fL (7.4-10.4); PLATELET COUNT 222 K/uL (130-400); RED CELL DISTRIBUTION WIDTH CV 17.7 % (11.5-14.5); RED CELL DISTRIBUTION WIDTH SD 58.8 fL (36.4-46.3); WHITE BLOOD COUNT 2.63 K/uL (4.8-10.8)
[2018-02-20 06:59] VITALS: BMI 31.7
[2018-02-20 07:02] LABS: CALCIUM 7.4 mg/dl (8.5-10.1); CREATININE 1.25 mg/dl (0.60-1.40); POTASSIUM 4.3 mmol/L (3.5-5.1)
[2018-02-20 07:47] VITALS: BP 134/95; PULSE 108; TEMP 36.7; O2SAT 96
[2018-02-20] MEDS: MONTELUKAST SOD 10 MG TAB PO SCH (08:00)
[2018-02-20] MEDS: POTASSIUM CHLORIDE 20 MEQ TABCR PO SCH (08:00)
[2018-02-20] MEDS ORDERED: MAGNESIUM SULFATE 1GM / D5W 100 ML IV ONE (08:30)
[2018-02-20] MEDS: CHOLECALCIFEROL 1000 INTER.UNIT TAB PO SCH (08:53)
[2018-02-20] MEDS: BOOST BREEZE NUTRITION DRINK 1 BOX PO SCH ×3 (08:53→21:23)
[2018-02-20] MEDS: CLOPIDOGREL BISULFATE 75 MG TAB PO SCH (08:53)
[2018-02-20] MEDS: DEXAMETHASONE 4 MG TAB PO SCH ×2 (08:53→21:19)
[2018-02-20] MEDS: LORATADINE 10 MG TAB PO SCH (08:55)
[2018-02-20] MEDS: PANTOprazole SOD 40 MG TAB PO SCH (08:55)
[2018-02-20] MEDS: LOPERAMIDE HCL 2 MG CAP PO SCH ×4 (08:55→21:18)
[2018-02-20] MEDS: MAGNESIUM OXIDE 400 MG TAB PO SCH ×2 (08:56→21:20)
[2018-02-20] MEDS: ATORVASTATIN 10 MG TAB PO SCH (08:56)
[2018-02-20] MEDS: ALBUMIN HUMAN 25% 12.5 GM/50 ML VIAL IV SCH ×6 (09:26→17:19)
[2018-02-20 11:35] VITALS: BP 156/105; PULSE 123; TEMP 36.5; O2SAT 98
--- NOTE | 2018-02-20 11:43 | Hospitalist Progress Note ---
Hospitalist Progress Note Date of Service Feb 20, 2018. Subjective Pt evaluation today including: conversation w/ patient, physical exam, chart review, lab review, review of inpatient medication list Patient reports not feeling well today. He states he feels more abdominal discomfort today as well as shortness of breath. He states he felt winded just walking a few feet to the bathroom. He is concerned he is filled w/fluid again. He states he had no appetite for breakfast due to the fullness in his abdomen , stating "there was no room." The patient denies fevers, chills, sweats, chest pain, palpitations, claudication, cough, wheezing, nausea, vomiting, dysuria, hematuria, urinary retention, paralysis, weakness, numbness and tingling. Additional Comments: See HPI for pertinent positives and negatives. All other systems reviewed and negative. Objective Vital Signs Date Time Temp Pulse Resp B/P (MAP) Pulse Ox O2 Delivery O2 Flow Rate FiO2 02/20/18 09:00 Room Air 02/20/18 07:47 36.7 108 20 134/95 (108) 96 Room Air 02/20/18 04:27 36.5 115 20 145/105 (118) 96 Room Air 02/19/18 23:15 Room Air 02/19/18 19:20 36.7 103 20 116/75 (89) 97 Room Air 02/19/18 15:01 36.5 96 18 119/78 (92) 98 Room Air 02/19/18 11:39 36.9 93 22 106/68 (81) 95 Room Air Physical Exam Notes: General appearance: Well-developed, well-nourished, no apparent distress Head: Normocephalic, atraumatic Eyes: Normal inspection, PERRL, EOMI ENT: Normal ENT inspection, hearing grossly normal, pharynx normal Neck: Supple, no JVD, trachea midline Respiratory/Chest: +Appears dyspneic. Lungs clear to auscultation, normal breath sounds, no respiratory distress Cardiovascular: Regular rate & rhythm, no gallop, no murmur Abdomen/GI: +Distended. Normal bowel sounds, non-tender Extremities/Musculoskeletal: Normal inspection, no calf tenderness, no pedal edema Neurological/Psych: +Depressed affect. Alert, oriented x 3 Skin: Normal color, warm/dry, no rash Laboratory Results Last 24 Hours Test 02/20/18 05:40 White Blood Count 2.63 K/uL Red Blood Count 3.52 M/uL Hemoglobin 10.4 g/dL Hematocrit 32.6 % Mean Corpuscular Volume 92.6 fL Mean Corpuscular Hemoglobin 29.5 pg Mean Corpuscular Hemoglobin Concent 31.9 g/dl RDW Standard Deviation 58.8 fL RDW Coefficient of Variation 17.7 % Platelet Count 222 K/uL Mean Platelet Volume 8.7 fL Sodium Level 137 mmol/L Potassium Level 4.3 mmol/L Chloride Level 104 mmol/L Carbon Dioxide Level 26 mmol/L Anion Gap 7.0 mmol/L Blood Urea Nitrogen 37 mg/dl Creatinine 1.25 mg/dl Est Creatinine Clear Calc Drug Dose 91.9 ml/min Estimated GFR () 79.0 Estimated GFR (Non- 68.1 BUN/Creatinine Ratio 29.8 Random Glucose 143 mg/dl Calcium Level 7.4 mg/dl Magnesium Level 1.7 mg/dl Albumin 2.9 gm/dl Assessment and Plan 48 y/o male with a history of HTN, HLD, recent CVA, and 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 Dehydration, weakness, protein malnutrition--stable -Creatinine remains stable, at baseline -Received NSS at 100 cc/hr x 2L -Continue Remeron 30 mg PO hs and Decadron 6 mg PO qam and 2 mg PO qpm -Nutrition consulted. Continue Boost BID, snacks TID Ascites--ongoing -Ultrasound guided paracentesis performed 02/16, 4.6L fluid removed -Therapeutic only as diagnostic studies done last week and no s/s infection now -Albumin 25 gm IV given pior and s/p paracentesis -Albumin 25 gm IV daily -Abdomen ultrasound 02/18 shows moderate right flank ascites -S/p paracentesis 02/18, >9L fluid removed. 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 Will have close outpt follow up Tuesdays and to evaluate need for IV fluid, paracentesis, and for outpatient chemo. -Chemo completed 02/19 Chemotherapy induced pancytopenia--improving -Blood counts all improved 02/20 -Continue to monitor, appreciate heme/onc recs HTN, HLD--stable -Continue Lipitor 10 mg PO qd Recent CVA 10/19/17 -Continue Plavix, statin DVT prophylaxis -Enoxaparin 40 mg SC q24h -SCDs Code Status -Level I, FULL RESUSCITATION STATUS Dispo -From home w/services -Pt feels worse again, symptomatic and afraid he has reaccumulated his fluid, requests repeat ultrasound. Does not feel comfortable going home given his frequent hospitalizations and recent syncopal episode, and now feeling worse today
--- NOTE | 2018-02-20 12:26 | DIAGNOSTIC IMAGING REPORT ---
ASCITES-ABDOMEN LIMITED CLINICAL HISTORY: increased abdominal pain, shortness of breath, weight gain dyspnea TECHNIQUE: Survey ultrasound COMPARISON STUDY: 02/18/2018 FINDINGS: Moderate ascites is confirmed within the abdomen and pelvis. IMPRESSION: Moderate ascites within the abdomen and pelvis The above report was generated using voice recognition software. It may contain grammatical, syntax or spelling errors. Electronically signed by: Wang Rutledge M.D. 02/20/2018 12:25 PM Dictated Date/Time: 02/20/2018 12:23 PM
[2018-02-20] MEDS ORDERED: ALBUMIN HUMAN 25% 12.5 GM/50 ML VIAL IV SCH ×3 (14:00→15:00)
--- NOTE | 2018-02-20 14:03 | Progress Note ---
Progress Note Date of Service Feb 20, 2018. Progress Note Date of Service Feb 20, 2018. Procedure Note Critical Care Medicine Procedure Date: February 18, 2018 Procedure: Paracentesis Pre-procedure Diagnosis: Metastatic ascites Post-procedure Diagnosis: same as above Prior to Procedure: Informed Consent: The risks, benefits, indications, potential complications, and alternatives were explained to the patient and informed consent obtained. Attending Staff: Augustine Flores DO Indications: The patient is a 48 y/o male patient with metastatic carcinoma requiring paracentesis for symptomatology The identity of the patient was confirmed and a bedside time out was performed. Description of Procedure: Patient positioned, the LLQ of the abdomen was prepped and draped in usual sterile fashion. Ultrasound guidance was used and appropriate fluid pocket was identified. 7 mL of 1% Lidocaine without epinephrine was used to anesthetize the area. A needle was introduced into the peritoneal space and fluid was removed. Total Fluid Removed: 4000 ml Color of Fluid: White Complications: None Estimated blood loss: Trace Critical Care Medicine Point of Care Bedside Ultrasound Procedure: Procedural Ultrasound Procedure Date: February 18, 2018 Indication: malignant ascites Attending: Jean Flores DO Organs Examined: Small Bowel, ascitic fluid Impression: Pocket visualized in LLQ >2 cm distance
[2018-02-20] MEDS: ENOXAPARIN 40 MG/0.4 ML SYR SQ SCH (14:34)
[2018-02-20 15:04] VITALS: BP 128/83; PULSE 113; TEMP 36.4; O2SAT 96
[2018-02-20] MEDS: MIRTAZAPINE SOLTAB 15 MG PO SCH (21:21)
[2018-02-20 21:24] VITALS: BP 134/90; PULSE 109; TEMP 36.6; O2SAT 98
[2018-02-20] MEDS: LORAZEPAM INJ 0.5 MG in SYRINGE 0.75 ML IV PRN (21:24)
[2018-02-21 04:18] VITALS: BP 137/100; PULSE 104; TEMP 36.5; O2SAT 98
[2018-02-21 06:08] LABS: HEMATOCRIT 27.5 % (42-52); HEMOGLOBIN 9.1 g/dL (14.0-18.0); MEAN CELL VOLUME 90.5 fL (80-100); MEAN CORPUSCULAR HEMOGLOBIN 29.9 pg (25-34); MEAN CORPUSCULAR HGB CONC 33.1 g/dl (32-36); MEAN PLATELET VOLUME 8.5 fL (7.4-10.4); PLATELET COUNT 173 K/uL (130-400); RED CELL DISTRIBUTION WIDTH CV 17.1 % (11.5-14.5); RED CELL DISTRIBUTION WIDTH SD 55.8 fL (36.4-46.3); WHITE BLOOD COUNT 1.86 K/uL (4.8-10.8)
[2018-02-21 06:35] LABS: CALCIUM 7.7 mg/dl (8.5-10.1); CREATININE 1.2 mg/dl (0.60-1.40); POTASSIUM 4.2 mmol/L (3.5-5.1)
[2018-02-21] MEDS: CALCIUM CARBONATE 1250MG TAB PO SCH ×9 (06:36→20:30)
[2018-02-21] MEDS: METOCLOPRAMIDE HCL 10 MG TAB PO SCH ×4 (06:36→20:28)
[2018-02-21 07:02] VITALS: BMI 30.9
[2018-02-21 07:45] VITALS: BP 124/82; PULSE 93; TEMP 36.9; O2SAT 98
[2018-02-21] MEDS: BOOST BREEZE NUTRITION DRINK 1 BOX PO SCH ×2 (08:51→20:00)
[2018-02-21] MEDS: LORATADINE 10 MG TAB PO SCH (08:51)
[2018-02-21] MEDS: DEXAMETHASONE 4 MG TAB PO SCH ×2 (08:52→20:26)
[2018-02-21] MEDS: POTASSIUM CHLORIDE 20 MEQ TABCR PO SCH (08:52)
[2018-02-21] MEDS: LOPERAMIDE HCL 2 MG CAP PO SCH ×4 (08:52→20:25)
[2018-02-21] MEDS: MAGNESIUM OXIDE 400 MG TAB PO SCH ×2 (08:53→20:00)
[2018-02-21] MEDS: PANTOprazole SOD 40 MG TAB PO SCH (08:53)
[2018-02-21] MEDS: CLOPIDOGREL BISULFATE 75 MG TAB PO SCH (08:53)
[2018-02-21] MEDS: MONTELUKAST SOD 10 MG TAB PO SCH (08:53)
[2018-02-21] MEDS: ATORVASTATIN 10 MG TAB PO SCH (08:53)
[2018-02-21] MEDS: CHOLECALCIFEROL 1000 INTER.UNIT TAB PO SCH (08:54)
[2018-02-21 09:58] LABS: IG# 0.01 K/uL (0.00-0.02); LYMPH % 8.4 %; LYMPH ABS # 0.15 K/uL (1.2-3.4); MONO % 5.6 %; NEUT % 85.4 %; NEUT ABS # 1.53 K/uL (1.4-6.5)
--- NOTE | 2018-02-21 11:20 | Medical Consult ---
Consultation Date of Consultation: Feb 21, 2018. 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 Has had two paracenteses since admission (4 L each), was having about once per week as an outpatient. We were asked to see for PleurX. Past Medical/Surgical History Medical Problems: (1) Abdominal distension Status: Acute (2) Anemia Status: Acute (3) Ascites Status: Acute (4) Ascites Status: Acute (5) Ascites Status: Acute (6) Bilateral pleural effusion Status: Acute (7) Cancer, metastatic Status: Acute (8) Cholangitis Status: Acute (9) Dehydration Status: Acute (10) Hypoxia Status: Acute (11) Metastatic cancer Status: Acute (12) Nausea & vomiting Status: Acute (13) Neutropenia Status: Acute (14) Respiratory distress Status: Acute (15) Tachycardia Status: Acute (16) Thrombopenia Status: Acute Family History Stroke Social History Smoking Status: Never Smoker Drug Use: none Marital Status: Housing Status: lives with significant other Occupation Status: disabled Allergies Coded Allergies: Sulfa Antibiotics (Verified Allergy, Intermediate, RASH, 02/15/18) Current Inpatient Medications Current Inpatient Medications Medications (Trade) Dose Ordered Sig/Suraj Route Start Time Stop Time Status Last Admin Dose Admin Acetaminophen (Tylenol Tab) 650 mg Q4H PRN PO 02/15/18 10:30 03/17/18 10:29 Al Hydrox/Mg Hydrox/Simethicone (Maalox Max Susp) 15 ml Q4H PRN PO 02/15/18 10:30 03/17/18 10:29 Magnesium Hydroxide (Milk Of Magnesia Susp) 30 ml Q6H PRN PO 02/15/18 10:30 03/17/18 10:29 Polyethylene (Miralax Powder Packet) 17 gm DAILY PRN PO 02/15/18 10:30 03/17/18 10:29 Ondansetron HCl (Zofran Inj) 4 mg Q6H PRN IV 02/15/18 10:30 03/17/18 10:29 02/20/18 00:16 4 MG Atorvastatin Calcium (Lipitor Tab) 10 mg DAILY PO 02/16/18 08:00 03/18/18 08:59 02/21/18 08:53 10 MG Calcium Carbonate (oS-Oli 500 TAB) 1,250 mg Q2HWA PO 02/15/18 12:00 03/17/18 11:59 02/21/18 08:53 1,250 MG Cholecalciferol (Vitamin D Tab) 2,000 inter.unit QAM PO 02/16/18 08:00 03/18/18 08:59 02/21/18 08:54 2,000 INTER.UNIT Clopidogrel Bisulfate (plAVix TAB) 75 mg DAILY PO 02/16/18 08:00 03/18/18 08:59 02/21/18 08:53 75 MG Enoxaparin Sodium (Lovenox Inj) 40 mg Q24H SQ 02/15/18 14:00 03/17/18 13:59 02/20/18 14:34 40 MG Loperamide HCl (Imodium Cap) 2 mg QID PO 02/15/18 12:14 03/17/18 12:59 02/21/18 08:52 2 MG Loratadine (Claritin Tab) 10 mg DAILY PO 02/16/18 08:00 03/18/18 08:59 02/21/18 08:51 10 MG Lorazepam (Ativan Tab) 0.5 mg Q4 PRN PO 02/15/18 11:15 03/17/18 11:14 02/20/18 14:33 0.5 MG Magnesium Oxide (Mag-Ox Tab) 600 mg BID PO 02/15/18 20:00 03/17/18 20:59 02/21/18 08:53 600 MG Metoclopramide HCl (Reglan Tab) 10 mg ACHS PO 02/15/18 16:30 03/17/18 16:29 02/21/18 06:36 10 MG Montelukast Sodium (Singulair Tab) 10 mg DAILY PO 02/16/18 08:00 03/18/18 08:59 02/21/18 08:53 10 MG Pantoprazole Sodium (Protonix Tab) 40 mg DAILY PO 02/16/18 08:00 03/18/18 08:59 02/21/18 08:53 40 MG Potassium Chloride (Klor-Con Tab) 40 meq QAM PO 02/16/18 08:00 03/18/18 08:59 02/21/18 08:52 40 MEQ Enteral Nutritional Formula (Boost Breeze Nutritional Drink) 1 box BID PO 02/15/18 20:00 03/17/18 20:59 02/21/18 08:51 1 BOX Miscellaneous (Iv Fluids Completed) 1 ea PRN PRN N/A 02/15/18 14:15 02/15/19 14:14 Heparin Sodium (Porcine) (Heparin 10 Unit/ ml 5 ml Flush) 5 ml PRN PRN FLUSH 02/15/18 14:15 03/17/18 14:14 02/21/18 05:50 10 ML Lorazepam (Ativan Inj) 0.5 mg HS PRN IV 02/15/18 16:30 03/17/18 16:29 02/16/18 20:51 0.5 MG Lorazepam 0.5 mg/ Syringe 1 ml @ 1 mls/min HS PRN IV 02/15/18 21:00 03/17/18 20:59 02/20/18 21:24 1 MLS/MIN Mirtazapine (Remeron Solutab) 30 mg HS PO 02/16/18 21:00 03/17/18 20:59 02/20/18 21:21 30 MG Dexamethasone (Decadron Tab) 6 mg QAM PO 02/17/18 08:00 03/19/18 07:59 02/21/18 08:52 6 MG Dexamethasone (Decadron Tab) 2 mg QPM PO 02/16/18 21:00 03/18/18 20:59 02/20/18 21:19 2 MG Zolpidem Tartrate (Ambien Tab) 10 mg HSZ PRN PO 02/18/18 19:00 03/17/18 10:29 Review of Systems Constitutional: + weakness, + fatigue Physical Exam Date Time Temp Pulse Resp B/P (MAP) Pulse Ox O2 Delivery O2 Flow Rate FiO2 02/21/18 07:45 36.9 93 20 124/82 (96) 98 02/21/18 04:18 36.5 104 20 137/100 (112) 98 Room Air 02/20/18 23:55 Room Air 02/20/18 21:24 36.6 109 20 134/90 (105) 98 Room Air 02/20/18 15:04 36.4 113 18 128/83 (98) 96 Room Air 02/20/18 11:35 36.5 123 18 156/105 (122) 98 Room Air General Appearance: WD/WN, + mild distress Abdomen/GI: non tender, soft, + pertinent finding (fluid wave) Laboratory Results Last 24 Hours Test 02/21/18 05:52 White Blood Count 1.86 K/uL Red Blood Count 3.04 M/uL Hemoglobin 9.1 g/dL Hematocrit 27.5 % Mean Corpuscular Volume 90.5 fL Mean Corpuscular Hemoglobin 29.9 pg Mean Corpuscular Hemoglobin Concent 33.1 g/dl Platelet Count 173 K/uL Mean Platelet Volume 8.5 fL Neutrophils (%) (Auto) 85.4 % Lymphocytes (%) (Auto) 8.4 % Monocytes (%) (Auto) 5.6 % Eosinophils (%) (Auto) 0.0 % Basophils (%) (Auto) 0.0 % Neutrophils # (Auto) 1.53 K/uL Lymphocytes # (Auto) 0.15 K/uL Monocytes # (Auto) 0.10 K/uL Eosinophils # (Auto) 0.00 K/uL Basophils # (Auto) 0.00 K/uL RDW Standard Deviation 55.8 fL RDW Coefficient of Variation 17.1 % Immature Granulocyte % (Auto) 0.6 % Immature Granulocyte # (Auto) 0.01 K/uL Nucleated RBC Absolute Count (auto) 0.00 K/uL Nucleated Red Blood Cells % 0.0 % Sodium Level 137 mmol/L Potassium Level 4.2 mmol/L Chloride Level 103 mmol/L Carbon Dioxide Level 26 mmol/L Anion Gap 9.0 mmol/L Blood Urea Nitrogen 39 mg/dl Creatinine 1.20 mg/dl Est Creatinine Clear Calc Drug Dose 95.7 ml/min Estimated GFR () 83.0 Estimated GFR (Non- 71.6 BUN/Creatinine Ratio 32.1 Random Glucose 124 mg/dl Calcium Level 7.7 mg/dl Magnesium Level 1.8 mg/dl Albumin 3.0 gm/dl Assessment & Plan Malignant ascites, malnutrition Discussed procedure and drain care with him and family. He does not wish to have PleurX placed at this time. Prefers to have close monitoring and prn paracentesis. If he decides to proceed we could perform the procedure tomorrow or he could be seen in the future as an outpatient.
[2018-02-21 11:29] VITALS: BP 135/89; PULSE 100; TEMP 36.9; O2SAT 100
[2018-02-21] MEDS: LORAZEPAM 0.5 MG TAB PO PRN (11:35)
--- NOTE | 2018-02-21 12:41 | HEME/ONC PROGRESS NOTE ---
DATE: 02/21/2018 DIAGNOSES: 1. 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 2. Malignant ascites. 3. Electrolyte dysfunction. 4. Dehydration. SUBJECTIVE: Ashok was seen and examined at bedside today. Apparently, he had a couple of paracentesis over the weekend yielding approximately 13 liters which sounds like he is making little progress. He received a second course of FOLFIRI combination chemotherapy. For the most part, he is maintaining some semblance of appetite, but continues to struggle with protein balance. His albumin is definitely much improved from his prior admission. Ashok is hopeful to go home tomorrow. Not sure how much ambulation has taken place; however, he is expressing desire to be home for a couple of days. Will discuss further with Dr. Carson regarding where we go from here treatment [place]. The patient is very hesitant remained home for a prolonged period of time because his electrolytes decline rapidly. PHYSICAL EXAMINATION: GENERAL: He is lying lateral recumbent, in no acute distress. VITAL SIGNS: Temperature 36.9, pulse 100, respiratory rate 19, blood pressure 135/89. SKIN: Without rash or lesion. HEENT: Oral mucosa without erythema or ulceration. NECK: Supple. HEART: Regular rate and rhythm. LUNGS: Clear to auscultation. ABDOMEN: Distended with shifting dullness and a positive fluid wave. EXTREMITIES: Trace peripheral edema bilaterally. NEUROLOGIC: Grossly intact. LABORATORY DATA: WBC count 1860, hemoglobin 9.1, platelet count 173,000. Sodium 137, potassium 4.2, chloride 103, carbon dioxide 26, creatinine 1.20, BUN 39. Albumin presently 3. IMPRESSION: 1. Malignant ascites. 2. 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 3. Hypoalbuminemia. 4. Electrolyte dysfunction. PLAN: Ashok recently received a second course of FOLFIRI combination chemotherapy for the most part well tolerated. His albumin is markedly improved from his last admission. Continues to work with nutritional, folks to improve his protein intake. He continues to yield quite a bit of ascites despite both chemotherapy and albumin. According to [place], the plan is for discharge tomorrow. Will discuss further with Dr. Carson regarding plans for his next course of treatment. I have nothing further to add today. Thank you for assisting us in the care of this very pleasant gentleman.
[2018-02-21] MEDS: ENOXAPARIN 40 MG/0.4 ML SYR SQ SCH (14:00)
[2018-02-21 15:36] VITALS: BP 117/84; PULSE 98; TEMP 36.7; O2SAT 97
--- NOTE | 2018-02-21 17:40 | Hospitalist Progress Note ---
Hospitalist Progress Note Date of Service Feb 21, 2018. (Nohemi Nash .MACKENZIE) Subjective Pt evaluation today including: conversation w/ patient, conversation w/ family , physical exam, chart review, lab review, conversation w/ data integrity consultant ([facility]) , review of inpatient medication list Voiding: no voiding problems Mr. Juárez is tearful and expresses feeling afraid of his illness and also that he wishes to keep fighting. He is very concerned about leaving the hospital as he feels he cannot be monitored as well at home. We did discuss options for going home. He still has quite a bit of ascites but is feeling better than earlier in his stay. I did discuss his care bedside along with Dr Coley and patient's 's daughter. ROS Constitutional: no chills, aches, sweats or fever Respiratory: no sob,cough, sputum, or wheezing Cardiac: no chest pain, palpitations, edema, orthopnea or lightheadedness GI: no abdominal pain, nausea, vomiting, diarrhea or constipation : no dysuria or hesitancy Extremities: no joint pain or weakness Skin: no rash All other systems reviewed and negative (Nohemi Nash .MACKENZIE) Medications Medications Administered Medications (Trade) Dose Ordered Sig/Suraj Route Start Time Stop Time Status Last Admin Dose Admin Sodium Chloride 500 ml @ 999 mls/hr Q31M STAT IV 02/15/18 10:05 02/15/18 10:35 DC 02/15/18 10:23 999 MLS/HR Ondansetron HCl (Zofran Inj) 4 mg Q6H PRN IV 02/15/18 10:30 03/17/18 10:29 02/20/18 00:16 4 MG Magnesium Sulfate 100 ml @ 100 mls/hr Q1H IV 02/15/18 11:30 02/15/18 13:37 DC 02/15/18 15:52 100 MLS/HR Atorvastatin Calcium (Lipitor Tab) 10 mg DAILY PO 02/16/18 08:00 03/18/18 08:59 02/21/18 08:53 10 MG Calcium Carbonate (oS-Oli 500 TAB) 1,250 mg Q2HWA PO 02/15/18 12:00 03/17/18 11:59 02/21/18 15:45 1,250 MG Cholecalciferol (Vitamin D Tab) 2,000 inter.unit QAM PO 02/16/18 08:00 03/18/18 08:59 02/21/18 08:54 2,000 INTER.UNIT Clopidogrel Bisulfate (plAVix TAB) 75 mg DAILY PO 02/16/18 08:00 03/18/18 08:59 02/21/18 08:53 75 MG Dexamethasone (Decadron Tab) 4 mg QAM PO 02/16/18 08:00 02/16/18 18:14 DC 02/16/18 08:07 4 MG Enoxaparin Sodium (Lovenox Inj) 40 mg Q24H SQ 02/15/18 14:00 03/17/18 13:59 02/21/18 14:00 40 MG Loperamide HCl (Imodium Cap) 2 mg QID PO 02/15/18 12:14 03/17/18 12:59 02/21/18 15:45 2 MG Loratadine (Claritin Tab) 10 mg DAILY PO 02/16/18 08:00 03/18/18 08:59 02/21/18 08:51 10 MG Lorazepam (Ativan Tab) 0.5 mg Q4 PRN PO 02/15/18 11:15 03/17/18 11:14 02/21/18 11:35 0.5 MG Magnesium Oxide (Mag-Ox Tab) 600 mg BID PO 02/15/18 20:00 03/17/18 20:59 02/21/18 08:53 600 MG Metoclopramide HCl (Reglan Tab) 10 mg ACHS PO 02/15/18 16:30 03/17/18 16:29 02/21/18 15:45 10 MG Mirtazapine (Remeron Solutab) 15 mg HS PO 02/15/18 21:00 02/16/18 18:14 DC 02/15/18 20:54 15 MG Montelukast Sodium (Singulair Tab) 10 mg DAILY PO 02/16/18 08:00 03/18/18 08:59 02/21/18 08:53 10 MG Pantoprazole Sodium (Protonix Tab) 40 mg DAILY PO 02/16/18 08:00 03/18/18 08:59 02/21/18 08:53 40 MG Potassium Chloride (Klor-Con Tab) 40 meq QAM PO 02/16/18 08:00 03/18/18 08:59 02/21/18 08:52 40 MEQ Enteral Nutritional Formula (Boost Breeze Nutritional Drink) 1 box BID PO 02/15/18 20:00 03/17/18 20:59 02/21/18 08:51 1 BOX Sodium Chloride 1,000 ml @ 100 mls/hr Q10H IV 02/15/18 11:15 02/16/18 07:14 DC 02/15/18 21:15 100 MLS/HR Lorazepam (Ativan Inj) 0.5 mg NOW STAT IV 02/15/18 11:38 02/15/18 11:56 DC 02/15/18 12:41 0.5 MG Heparin Sodium (Porcine) (Heparin 10 Unit/ ml 5 ml Flush) 5 ml PRN PRN FLUSH 02/15/18 14:15 03/17/18 14:14 02/21/18 05:50 10 ML Lorazepam (Ativan Inj) 0.5 mg HS PRN IV 02/15/18 16:30 03/17/18 16:29 02/16/18 20:51 0.5 MG Lorazepam 0.5 mg/ Syringe 1 ml @ 1 mls/min HS PRN IV 02/15/18 21:00 03/17/18 20:59 02/20/18 21:24 1 MLS/MIN Magnesium Sulfate 100 ml @ 100 mls/hr TODAY@0915 ONCE IV 02/16/18 09:15 02/16/18 10:14 DC 02/16/18 10:24 100 MLS/HR Albumin Human (Albumin 25%) 12.5 gm TODAY@1230,1300 IV 02/16/18 12:30 02/16/18 13:01 DC 02/16/18 12:46 12.5 GM Albumin Human (Albumin 25%) 12.5 gm TODAY@1400,1430 IV 02/16/18 14:00 02/16/18 18:00 DC 02/16/18 17:43 12.5 GM Mirtazapine (Remeron Solutab) 30 mg HS PO 02/16/18 21:00 03/17/18 20:59 02/20/18 21:21 30 MG Dexamethasone (Decadron Tab) 6 mg QAM PO 02/17/18 08:00 03/19/18 07:59 02/21/18 08:52 6 MG Dexamethasone (Decadron Tab) 2 mg QPM PO 02/16/18 21:00 03/18/18 20:59 02/20/18 21:19 2 MG Magnesium Sulfate 100 ml @ 100 mls/hr NOW ONCE IV 02/17/18 08:45 02/17/18 09:44 DC 02/17/18 09:20 100 MLS/HR Irinotecan HCl 400 mg/Irinotecan HCl 40 mg/Dextrose 572 ml @ 380 mls/hr TODAY@1300 IV 02/17/18 13:00 02/17/18 23:59 DC 02/17/18 15:48 380 MLS/HR Leucovorin Calcium 984 mg/ Dextrose 149.2 ml @ 100 mls/hr TODAY@1300 IV 02/17/18 13:00 02/17/18 23:59 DC 02/17/18 15:48 100 MLS/HR Fluorouracil 2950 mg/Sodium Chloride 1,059 ml @ 46 mls/hr Q23H IV 02/17/18 15:00 02/19/18 12:59 DC 02/18/18 14:15 46 MLS/HR Fluorouracil 980 mg/Syringe 19.6 ml @ 5 mls/min TODAY@1445 IV 02/17/18 14:45 02/17/18 23:59 DC 02/17/18 17:45 5 MLS/MIN Dexamethasone Sodium Phosphate 10 mg/Sodium Chloride 27.5 ml @ 82.5 mls/hr TODAY@1200 IV 02/17/18 12:00 02/17/18 23:59 DC 02/17/18 14:01 82.5 MLS/HR Palonosetron 0.25 mg/Syringe 5 ml @ 10 mls/min TODAY@1200 IV 02/17/18 12:00 02/17/18 23:59 DC 02/17/18 14:01 10 MLS/MIN Albumin Human (Albumin 25%) 12.5 gm TODAY@1115,1130 IV 02/17/18 11:15 02/17/18 11:31 DC 02/17/18 12:54 12.5 GM Fosaprepitant 150 mg/Sodium Chloride 150 ml @ 300 mls/hr TODAY@1400 IV 02/17/18 14:00 02/17/18 23:59 DC 02/17/18 14:01 300 MLS/HR Magnesium Sulfate 100 ml @ 100 mls/hr TODAY@0915 ONCE IV 02/18/18 09:15 02/18/18 10:14 DC 02/18/18 11:58 100 MLS/HR Albumin Human (Albumin 25%) 12.5 gm DAILY@0900,1000 IV 02/18/18 09:00 02/21/18 08:59 DC 02/20/18 10:23 12.5 GM Albumin Human (Albumin 25%) 12.5 gm Q1H IV 02/18/18 18:30 02/18/18 20:29 DC 02/18/18 20:40 12.5 GM Albumin Human (Albumin 25%) 12.5 gm Q1H IV 02/18/18 21:00 02/18/18 22:59 DC 02/19/18 00:38 12.5 GM Albumin Human (Albumin 25%) 12.5 gm Q1H IV 02/18/18 23:30 02/19/18 01:29 DC 02/19/18 02:32 12.5 GM Magnesium Sulfate 100 ml @ 100 mls/hr NOW ONCE IV 02/20/18 08:30 02/20/18 09:29 DC 02/20/18 09:18 100 MLS/HR Albumin Human (Albumin 25%) 12.5 gm Q1H IV 02/20/18 14:15 02/20/18 17:16 DC 02/20/18 17:19 12.5 GM (Nohemi Nash CRNP) Objective Vital Signs Date Time Temp Pulse Resp B/P (MAP) Pulse Ox O2 Delivery O2 Flow Rate FiO2 02/21/18 16:00 Room Air 02/21/18 15:36 36.7 98 16 117/84 (95) 97 Room Air 02/21/18 11:58 Room Air 02/21/18 11:29 36.9 100 19 135/89 (104) 100 02/21/18 07:45 36.9 93 20 124/82 (96) 98 02/21/18 04:18 36.5 104 20 137/100 (112) 98 Room Air 02/20/18 23:55 Room Air 02/20/18 21:24 36.6 109 20 134/90 (105) 98 Room Air (Nohemi Nash CRNP) Physical Exam Notes: General: no distress Eyes: normal inspection, PERLL Respiratory: chest non tender, clear to auscultation, normal breath sounds, no respiratory distress, no accessory muscle use Cardiac: regular rate and rhythm, no rub or gallop, no murmur, no edema, no jvd GI/: active bowel sounds, no abd pain or tenderness, soft, distended Extremities: normal range of motion, normal strength, non tender Neuro/Psych: alert and oriented x 3, sad, anxioius mood, normal affect Skin: normal color, dry (Nohemi Nash CRNP) Laboratory Results Last 24 Hours Test 02/21/18 05:52 White Blood Count 1.86 K/uL Red Blood Count 3.04 M/uL Hemoglobin 9.1 g/dL Hematocrit 27.5 % Mean Corpuscular Volume 90.5 fL Mean Corpuscular Hemoglobin 29.9 pg Mean Corpuscular Hemoglobin Concent 33.1 g/dl Platelet Count 173 K/uL Mean Platelet Volume 8.5 fL Neutrophils (%) (Auto) 85.4 % Lymphocytes (%) (Auto) 8.4 % Monocytes (%) (Auto) 5.6 % Eosinophils (%) (Auto) 0.0 % Basophils (%) (Auto) 0.0 % Neutrophils # (Auto) 1.53 K/uL Lymphocytes # (Auto) 0.15 K/uL Monocytes # (Auto) 0.10 K/uL Eosinophils # (Auto) 0.00 K/uL Basophils # (Auto) 0.00 K/uL RDW Standard Deviation 55.8 fL RDW Coefficient of Variation 17.1 % Immature Granulocyte % (Auto) 0.6 % Immature Granulocyte # (Auto) 0.01 K/uL Nucleated RBC Absolute Count (auto) 0.00 K/uL Nucleated Red Blood Cells % 0.0 % Sodium Level 137 mmol/L Potassium Level 4.2 mmol/L Chloride Level 103 mmol/L Carbon Dioxide Level 26 mmol/L Anion Gap 9.0 mmol/L Blood Urea Nitrogen 39 mg/dl Creatinine 1.20 mg/dl Est Creatinine Clear Calc Drug Dose 95.7 ml/min Estimated GFR () 83.0 Estimated GFR (Non- 71.6 BUN/Creatinine Ratio 32.1 Random Glucose 124 mg/dl Calcium Level 7.7 mg/dl Magnesium Level 1.8 mg/dl Albumin 3.0 gm/dl (Nohemi Nash CRNP) Assessment and Plan 48 y/o male here for 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 Dehydration, weakness, protein malnutrition--stable -Creatinine remains stable, at baseline following IVF -Continue Remeron 30 mg PO hs and Decadron 6 mg PO qam and 2 mg PO qpm -Nutrition consulted. Continue Boost BID, snacks TID Ascites--ongoing -Ultrasound guided paracentesis performed 02/16, 4.6L fluid removed, 02/18 >9 K fluid removed, 02/20 4L removed. 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 Will have close outpt follow up Tuesdays and to evaluate need for IV fluid, paracentesis, and for outpatient chemo. 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
[2018-02-21 19:33] VITALS: BP 124/84; PULSE 100; TEMP 36.8; O2SAT 97
[2018-02-21] MEDS: MIRTAZAPINE SOLTAB 15 MG PO SCH (20:28)
[2018-02-21] MEDS: LORAZEPAM 2 MG/ML 1 ML VIAL IV PRN (20:48)
[2018-02-22] MEDS: ONDANSETRON INJ 2 MG/ML 2 ML VIAL IV PRN ×2 (01:43→08:38)
[2018-02-22] MEDS: LORAZEPAM 0.5 MG TAB PO PRN ×3 (01:45→17:28)
[2018-02-22] MEDS: METOCLOPRAMIDE HCL 10 MG TAB PO SCH ×4 (05:55→20:17)
[2018-02-22] MEDS: CALCIUM CARBONATE 1250MG TAB PO SCH ×9 (06:00→20:24)
[2018-02-22 06:04] LABS: HEMATOCRIT 31.4 % (42-52); HEMOGLOBIN 10.8 g/dL (14.0-18.0); MEAN CELL VOLUME 90.2 fL (80-100); MEAN CORPUSCULAR HGB CONC 34.4 g/dl (32-36); MEAN PLATELET VOLUME 8.3 fL (7.4-10.4); PLATELET COUNT 180 K/uL (130-400); RED CELL DISTRIBUTION WIDTH CV 17.2 % (11.5-14.5); RED CELL DISTRIBUTION WIDTH SD 55.4 fL (36.4-46.3); WHITE BLOOD COUNT 1.14 K/uL (4.8-10.8)
[2018-02-22 06:34] LABS: ALBUMIN 2.7 gm/dl (3.4-5.0); CALCIUM 7.1 mg/dl (8.5-10.1); CREATININE 1.15 mg/dl (0.60-1.40); POTASSIUM 4.1 mmol/L (3.5-5.1)
[2018-02-22 07:23] VITALS: BMI 30.6
[2018-02-22 07:31] VITALS: BP 103/71; PULSE 101; TEMP 37; O2SAT 97
[2018-02-22 08:00] VITALS: O2SAT 97
[2018-02-22] MEDS: BOOST BREEZE NUTRITION DRINK 1 BOX PO SCH ×2 (08:00→20:00)
[2018-02-22] MEDS: POTASSIUM CHLORIDE 20 MEQ TABCR PO SCH (08:00)
[2018-02-22] MEDS: MAGNESIUM OXIDE 400 MG TAB PO SCH ×2 (08:00→20:00)
[2018-02-22] MEDS: MONTELUKAST SOD 10 MG TAB PO SCH (08:23)
[2018-02-22] MEDS: PANTOprazole SOD 40 MG TAB PO SCH (08:23)
[2018-02-22] MEDS: LORATADINE 10 MG TAB PO SCH (08:24)
[2018-02-22] MEDS: LOPERAMIDE HCL 2 MG CAP PO SCH ×2 (08:24→12:00)
[2018-02-22] MEDS: ATORVASTATIN 10 MG TAB PO SCH (08:25)
[2018-02-22] MEDS: CLOPIDOGREL BISULFATE 75 MG TAB PO SCH (08:25)
[2018-02-22] MEDS: CHOLECALCIFEROL 1000 INTER.UNIT TAB PO SCH (08:25)
[2018-02-22] MEDS: DEXAMETHASONE 4 MG TAB PO SCH ×2 (08:26→20:20)
--- NOTE | 2018-02-22 09:44 | Hospitalist Progress Note ---
Hospitalist Progress Note Date of Service Feb 22, 2018. (Nohemi Nash ., MACKENZIE) Subjective Pt evaluation today including: conversation w/ patient, physical exam, chart review, lab review, review of inpatient medication list Voiding: no voiding problems Mr. Juárez continues to be tearful. He would like to get the Pleurx catheter and surgery is bedside to discuss with him. He is having diarrhea. He does feel his belly is bit bigger today but he is breathing ok though he has a decreased appetite. ROS Constitutional: no chills, aches, sweats or fever Respiratory: no sob,cough, sputum, or wheezing Cardiac: no chest pain, palpitations, edema, orthopnea or lightheadedness GI: see HPI : no dysuria or hesitancy Extremities: no joint pain or weakness Skin: no rash All other systems reviewed and negative (Nohemi Nash .MACKENZIE) Medications Medications Administered Medications (Trade) Dose Ordered Sig/Suraj Route Start Time Stop Time Status Last Admin Dose Admin Sodium Chloride 500 ml @ 999 mls/hr Q31M STAT IV 02/15/18 10:05 02/15/18 10:35 DC 02/15/18 10:23 999 MLS/HR Ondansetron HCl (Zofran Inj) 4 mg Q6H PRN IV 02/15/18 10:30 03/17/18 10:29 02/22/18 08:38 4 MG Magnesium Sulfate 100 ml @ 100 mls/hr Q1H IV 02/15/18 11:30 02/15/18 13:37 DC 02/15/18 15:52 100 MLS/HR Atorvastatin Calcium (Lipitor Tab) 10 mg DAILY PO 02/16/18 08:00 03/18/18 08:59 02/22/18 08:25 10 MG Calcium Carbonate (oS-Oli 500 TAB) 1,250 mg Q2HWA PO 02/15/18 12:00 03/17/18 11:59 02/21/18 15:45 1,250 MG Cholecalciferol (Vitamin D Tab) 2,000 inter.unit QAM PO 02/16/18 08:00 03/18/18 08:59 02/22/18 08:25 2,000 INTER.UNIT Clopidogrel Bisulfate (plAVix TAB) 75 mg DAILY PO 02/16/18 08:00 03/18/18 08:59 8/7/18 08:25 75 MG Dexamethasone (Decadron Tab) 4 mg QAM PO 02/16/18 08:00 02/16/18 18:14 DC 02/16/18 08:07 4 MG Enoxaparin Sodium (Lovenox Inj) 40 mg Q24H SQ 02/15/18 14:00 03/17/18 13:59 02/21/18 14:00 40 MG Loperamide HCl (Imodium Cap) 2 mg QID PO 02/15/18 12:14 03/17/18 12:59 02/22/18 08:24 2 MG Loratadine (Claritin Tab) 10 mg DAILY PO 02/16/18 08:00 03/18/18 08:59 02/22/18 08:24 10 MG Lorazepam (Ativan Tab) 0.5 mg Q4 PRN PO 02/15/18 11:15 03/17/18 11:14 02/22/18 08:38 0.5 MG Magnesium Oxide (Mag-Ox Tab) 600 mg BID PO 02/15/18 20:00 03/17/18 20:59 02/21/18 08:53 600 MG Metoclopramide HCl (Reglan Tab) 10 mg ACHS PO 02/15/18 16:30 03/17/18 16:29 02/22/18 08:23 10 MG Mirtazapine (Remeron Solutab) 15 mg HS PO 02/15/18 21:00 02/16/18 18:14 DC 02/15/18 20:54 15 MG Montelukast Sodium (Singulair Tab) 10 mg DAILY PO 02/16/18 08:00 03/18/18 08:59 02/22/18 08:23 10 MG Pantoprazole Sodium (Protonix Tab) 40 mg DAILY PO 02/16/18 08:00 03/18/18 08:59 02/22/18 08:23 40 MG Potassium Chloride (Klor-Con Tab) 40 meq QAM PO 02/16/18 08:00 03/18/18 08:59 02/21/18 08:52 40 MEQ Enteral Nutritional Formula (Boost Breeze Nutritional Drink) 1 box BID PO 02/15/18 20:00 03/17/18 20:59 02/21/18 08:51 1 BOX Sodium Chloride 1,000 ml @ 100 mls/hr Q10H IV 02/15/18 11:15 02/16/18 07:14 DC 02/15/18 21:15 100 MLS/HR Lorazepam (Ativan Inj) 0.5 mg NOW STAT IV 02/15/18 11:38 02/15/18 11:56 DC 02/15/18 12:41 0.5 MG Heparin Sodium (Porcine) (Heparin 10 Unit/ ml 5 ml Flush) 5 ml PRN PRN FLUSH 02/15/18 14:15 03/17/18 14:14 02/22/18 08:39 5 ML Lorazepam (Ativan Inj) 0.5 mg HS PRN IV 02/15/18 16:30 03/17/18 16:29 02/21/18 20:48 0.5 MG Lorazepam 0.5 mg/ Syringe 1 ml @ 1 mls/min HS PRN IV 02/15/18 21:00 03/17/18 20:59 02/20/18 21:24 1 MLS/MIN Magnesium Sulfate 100 ml @ 100 mls/hr TODAY@0915 ONCE IV 02/16/18 09:15 02/16/18 10:14 DC 02/16/18 10:24 100 MLS/HR Albumin Human (Albumin 25%) 12.5 gm TODAY@1230,1300 IV 02/16/18 12:30 02/16/18 13:01 DC 02/16/18 12:46 12.5 GM Albumin Human (Albumin 25%) 12.5 gm TODAY@1400,1430 IV 02/16/18 14:00 02/16/18 18:00 DC 02/16/18 17:43 12.5 GM Mirtazapine (Remeron Solutab) 30 mg HS PO 02/16/18 21:00 03/17/18 20:59 02/21/18 20:28 30 MG Dexamethasone (Decadron Tab) 6 mg QAM PO 02/17/18 08:00 03/19/18 07:59 02/22/18 08:26 6 MG Dexamethasone (Decadron Tab) 2 mg QPM PO 02/16/18 21:00 03/18/18 20:59 02/21/18 20:26 2 MG Magnesium Sulfate 100 ml @ 100 mls/hr NOW ONCE IV 02/17/18 08:45 02/17/18 09:44 DC 02/17/18 09:20 100 MLS/HR Irinotecan HCl 400 mg/Irinotecan HCl 40 mg/Dextrose 572 ml @ 380 mls/hr TODAY@1300 IV 02/17/18 13:00 02/17/18 23:59 DC 02/17/18 15:48 380 MLS/HR Leucovorin Calcium 984 mg/ Dextrose 149.2 ml @ 100 mls/hr TODAY@1300 IV 02/17/18 13:00 02/17/18 23:59 DC 02/17/18 15:48 100 MLS/HR Fluorouracil 2950 mg/Sodium Chloride 1,059 ml @ 46 mls/hr Q23H IV 02/17/18 15:00 02/19/18 12:59 DC 02/18/18 14:15 46 MLS/HR Fluorouracil 980 mg/Syringe 19.6 ml @ 5 mls/min TODAY@1445 IV 02/17/18 14:45 02/17/18 23:59 DC 02/17/18 17:45 5 MLS/MIN Dexamethasone Sodium Phosphate 10 mg/Sodium Chloride 27.5 ml @ 82.5 mls/hr TODAY@1200 IV 02/17/18 12:00 02/17/18 23:59 DC 02/17/18 14:01 82.5 MLS/HR Palonosetron 0.25 mg/Syringe 5 ml @ 10 mls/min TODAY@1200 IV 02/17/18 12:00 02/17/18 23:59 DC 02/17/18 14:01 10 MLS/MIN Albumin Human (Albumin 25%) 12.5 gm TODAY@1115,1130 IV 02/17/18 11:15 02/17/18 11:31 DC 02/17/18 12:54 12.5 GM Fosaprepitant 150 mg/Sodium Chloride 150 ml @ 300 mls/hr TODAY@1400 IV 02/17/18 14:00 02/17/18 23:59 DC 02/17/18 14:01 300 MLS/HR Magnesium Sulfate 100 ml @ 100 mls/hr TODAY@0915 ONCE IV 02/18/18 09:15 02/18/18 10:14 DC 02/18/18 11:58 100 MLS/HR Albumin Human (Albumin 25%) 12.5 gm DAILY@0900,1000 IV 02/18/18 09:00 02/21/18 08:59 DC 02/20/18 10:23 12.5 GM Albumin Human (Albumin 25%) 12.5 gm Q1H IV 02/18/18 18:30 02/18/18 20:29 DC 02/18/18 20:40 12.5 GM Albumin Human (Albumin 25%) 12.5 gm Q1H IV 02/18/18 21:00 02/18/18 22:59 DC 02/19/18 00:38 12.5 GM Albumin Human (Albumin 25%) 12.5 gm Q1H IV 02/18/18 23:30 02/19/18 01:29 DC 02/19/18 02:32 12.5 GM Magnesium Sulfate 100 ml @ 100 mls/hr NOW ONCE IV 02/20/18 08:30 02/20/18 09:29 DC 02/20/18 09:18 100 MLS/HR Albumin Human (Albumin 25%) 12.5 gm Q1H IV 02/20/18 14:15 02/20/18 17:16 DC 02/20/18 17:19 12.5 GM (Nohemi Nash, MACKENZIE) Objective Vital Signs Date Time Temp Pulse Resp B/P (MAP) Pulse Ox O2 Delivery O2 Flow Rate FiO2 02/22/18 07:31 37.0 101 18 103/71 (82) 97 Room Air 02/22/18 00:00 Room Air 02/21/18 19:33 36.8 100 20 124/84 (97) 97 Room Air 02/21/18 16:00 Room Air 02/21/18 15:36 36.7 98 16 117/84 (95) 97 Room Air 02/21/18 11:58 Room Air 02/21/18 11:29 36.9 100 19 135/89 (104) 100 (Nohemi Nash CRNP) Physical Exam Notes: General: no distress Eyes: normal inspection, PERLL Respiratory: chest non tender, clear to auscultation, normal breath sounds, no respiratory distress, no accessory muscle use Cardiac: regular rate and rhythm, no rub or gallop, no murmur, no edema, no jvd GI/: active bowel sounds, no abd pain or tenderness, soft, distended Extremities: normal range of motion, normal strength, non tender Neuro/Psych: alert and oriented x 3, sad and anxious mood and affect Skin: normal color, dry (Nohemi Nash CRNP) Laboratory Results Last 24 Hours Test 02/22/18 05:54 White Blood Count 1.14 K/uL Red Blood Count 3.48 M/uL Hemoglobin 10.8 g/dL Hematocrit 31.4 % Mean Corpuscular Volume 90.2 fL Mean Corpuscular Hemoglobin 31.0 pg Mean Corpuscular Hemoglobin Concent 34.4 g/dl RDW Standard Deviation 55.4 fL RDW Coefficient of Variation 17.2 % Platelet Count 180 K/uL Mean Platelet Volume 8.3 fL Sodium Level 136 mmol/L Potassium Level 4.1 mmol/L Chloride Level 103 mmol/L Carbon Dioxide Level 26 mmol/L Anion Gap 7.0 mmol/L Blood Urea Nitrogen 36 mg/dl Creatinine 1.15 mg/dl Est Creatinine Clear Calc Drug Dose 98.2 ml/min Estimated GFR () 87.3 Estimated GFR (Non- 75.4 BUN/Creatinine Ratio 31.6 Random Glucose 147 mg/dl Calcium Level 7.1 mg/dl Magnesium Level 1.8 mg/dl Albumin 2.7 gm/dl (Nohemi Nash CRNP) Assessment and Plan 48 y/o male here for 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 Dehydration, weakness, protein malnutrition--stable -Creatinine remains stable, at baseline following IVF -Continue Remeron 30 mg PO hs and Decadron 6 mg PO qam and 2 mg PO qpm -Nutrition consulted. Continue Boost BID, snacks TID Ascites--ongoing -Ultrasound guided paracentesis performed 02/16, 4.6L fluid removed, 02/18 >9 K fluid removed, 02/20 4L removed. 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 Will have close outpt follow up Tuesdays and to evaluate need for IV fluid, paracentesis, and for outpatient chemo. -Chemo completed 02/19 Chemotherapy induced pancytopenia - stable -Continue to monitor, appreciate heme/onc recs HTN, HLD--stable -Continue Lipitor 10 mg PO qd Recent CVA 10/19/17 -Continue Plavix, statin DVT prophylaxis -Enoxaparin 40 mg SC q24h -SCDs Code Status -Level I, FULL RESUSCITATION STATUS Dispo -From home w/services - hopefully can dc tomorrow (Nohemi Nash ., MACKENZIE) [employer] Physician Supervision Note: I discussed with Nohemi Nash [employer] and agree with findings and plan as documented in the note. Any exceptions or clarifications are listed here: None Patient has developed C. difficile we will coordinate with surgery to determine if this Pleurx consult be placed Documented By: Conrado Shepherd (Conrado Shepherd M.D.)
--- NOTE | 2018-02-22 09:54 | Surgery Progress Note ---
Surgery Progress Note Date of Service Feb 22, 2018. Subjective would like to have PleurX Objective Vital Signs: Date Time Temp Pulse Resp B/P (MAP) Pulse Ox O2 Delivery O2 Flow Rate FiO2 02/22/18 07:31 37.0 101 18 103/71 (82) 97 Room Air 02/22/18 00:00 Room Air 02/21/18 19:33 36.8 100 20 124/84 (97) 97 Room Air 02/21/18 16:00 Room Air 02/21/18 15:36 36.7 98 16 117/84 (95) 97 Room Air 02/21/18 11:58 Room Air 02/21/18 11:29 36.9 100 19 135/89 (104) 100 Abdomen: soft, + pertinent finding (fluid wave) Laboratory Results: Results Past 24 Hours Test 02/22/18 05:54 Range/Units White Blood Count 1.14 4.8-10.8 K/uL Red Blood Count 3.48 4.7-6.1 M/uL Hemoglobin 10.8 14.0-18.0 g/dL Hematocrit 31.4 42-52 % Mean Corpuscular Volume 90.2 80-100 fL Mean Corpuscular Hemoglobin 31.0 25-34 pg Mean Corpuscular Hemoglobin Concent 34.4 32-36 g/dl RDW Standard Deviation 55.4 36.4-46.3 fL RDW Coefficient of Variation 17.2 11.5-14.5 % Platelet Count 180 130-400 K/uL Mean Platelet Volume 8.3 7.4-10.4 fL Sodium Level 136 136-145 mmol/L Potassium Level 4.1 3.5-5.1 mmol/L Chloride Level 103 98-107 mmol/L Carbon Dioxide Level 26 21-32 mmol/L Anion Gap 7.0 3-11 mmol/L Blood Urea Nitrogen 36 7-18 mg/dl Creatinine 1.15 0.60-1.40 mg/dl Est Creatinine Clear Calc Drug Dose 98.2 ml/min Estimated GFR () 87.3 Estimated GFR (Non- 75.4 BUN/Creatinine Ratio 31.6 10-20 Random Glucose 147 70-99 mg/dl Calcium Level 7.1 8.5-10.1 mg/dl Magnesium Level 1.8 1.8-2.4 mg/dl Albumin 2.7 3.4-5.0 gm/dl Assessment & Plan Malignant ascites, malnutrition had breakfast this AM, will plan for PleurX tomorrow seen with Dr. May
[2018-02-22 11:26] VITALS: BP 118/78; PULSE 101; TEMP 36.4; O2SAT 97
[2018-02-22] MEDS: ENOXAPARIN 40 MG/0.4 ML SYR SQ SCH (12:21)
--- NOTE | 2018-02-22 15:14 | Anesthesiology Progress Note ---
Pre-OP Anesthesia Assessment Date of Note Feb 22, 2018. Review patient information reviewed, chart reviewed, labs reviewed, acceptable for surgery Notes 48 yo male has metastatic cancer. Scheduled for placement of intraperitoneal catheter for drainage of recurrent/refractory ascites. Pt has had anesthesia before without significant complications. IV sedation discussed and is preferred with GA if needed. Pt expressed understanding and signed informed consent.
[2018-02-22 15:17] VITALS: BP 116/86; PULSE 123; TEMP 36.4; O2SAT 97
[2018-02-22] MEDS: RASPBERRY SYRUP 5 ML UDP PO SCH (18:16)
[2018-02-22] MEDS: VANCOMYCIN HCL 250 MG/5 ML SOLN PO SCH (18:16)
[2018-02-22] MEDS: LACTOBACILLUS ACIDOPHILUS (FLORANEX) TAB PO SCH (20:17)
[2018-02-22] MEDS: NYSTATIN SUSP 500,000 U/5 ML UDC PO SCH (20:17)
[2018-02-22] MEDS: MIRTAZAPINE SOLTAB 15 MG PO SCH (20:20)
[2018-02-22 20:25] VITALS: BP 111/80; PULSE 98; TEMP 36.9; O2SAT 98
[2018-02-22] MEDS: LORAZEPAM INJ 0.5 MG in SYRINGE 0.75 ML IV PRN (21:14)
[2018-02-23] VITALS (7 sets, daily range): BP systolic 118–138; BP diastolic 76–100; PULSE 88–113; TEMP 36.4–36.9; O2SAT 96–99
[2018-02-23] MEDS: VANCOMYCIN HCL 250 MG/5 ML SOLN PO SCH ×4 (00:09→18:45)
[2018-02-23] MEDS: RASPBERRY SYRUP 5 ML UDP PO SCH ×4 (00:10→18:45)
[2018-02-23] MEDS: METOCLOPRAMIDE HCL 10 MG TAB PO SCH ×4 (05:54→21:25)
[2018-02-23] MEDS: CALCIUM CARBONATE 1250MG TAB PO SCH ×7 (05:54→17:46)
[2018-02-23] MEDS: BOOST BREEZE NUTRITION DRINK 1 BOX PO SCH ×2 (08:00→20:00)
--- NOTE | 2018-02-23 08:10 | HEME/ONC PROGRESS NOTE ---
DATE: 02/23/2018 DIAGNOSES: 1. Cancer of unknown primary. 2. Malignant ascites. 3. Electrolyte dysfunction. 4. Hypoalbuminemia. SUBJECTIVE: Ashok is seen and examined at bedside today. Apparently he is n.p.o. for a pigtail placement later on today. He reports no increase in pain per se. Nursing reports no overnight difficulties otherwise. He is becoming more cytopenic attributable to chemotherapy administered last week. Again, I believe a case management is working on discharge preparations in Ashok's case. PHYSICAL EXAMINATION: GENERAL: 48-year-old man in no acute distress. VITAL SIGNS: Temperature 36.9, pulse 98, respiratory rate 18, blood pressure 111/80. SKIN: Without rash or lesion. HEENT: Oral mucosa without erythema or ulceration. NECK: Supple. HEART: Regular rate and rhythm. LUNGS: Clear to auscultation bilaterally. ABDOMEN: Distended, soft, positive for fluid wave. EXTREMITIES: Trace peripheral edema bilaterally. NEUROLOGIC: Grossly intact. LABORATORY DATA: Albumin 2.5. IMPRESSION: 1. Malignant ascites. 2. Metastatic carcinoma, primary unknown. 3. Hypoalbuminemia. 4. Electrolyte dysfunction. Van de la rosa was seen and examined at bedside again today. Really no change clinically. Apparently he is an add-on for the operating room to have peritoneal catheter placed. Again, Ashok has been reluctant to be discharged home out of fear for increase in symptoms and electrolyte dysfunction he fears would be not managed appropriately. Nonetheless, it is my hope he is discharged to resume chemotherapy as outpatient. Thank you again for assisting us in the care of this very pleasant but complex case.
[2018-02-23] MEDS: MAGNESIUM OXIDE 400 MG TAB PO SCH ×2 (08:22→20:00)
[2018-02-23] MEDS: DEXAMETHASONE 4 MG TAB PO SCH ×2 (08:23→21:26)
[2018-02-23] MEDS: CHOLECALCIFEROL 1000 INTER.UNIT TAB PO SCH (08:23)
[2018-02-23] MEDS: NYSTATIN SUSP 500,000 U/5 ML UDC PO SCH ×5 (08:23→21:26)
[2018-02-23] MEDS: LORATADINE 10 MG TAB PO SCH (08:23)
[2018-02-23] MEDS: ATORVASTATIN 10 MG TAB PO SCH (08:23)
[2018-02-23] MEDS: MONTELUKAST SOD 10 MG TAB PO SCH (08:23)
[2018-02-23] MEDS: LACTOBACILLUS ACIDOPHILUS (FLORANEX) TAB PO SCH ×4 (08:24→20:10)
[2018-02-23] MEDS: POTASSIUM CHLORIDE 20 MEQ TABCR PO SCH (08:24)
[2018-02-23] MEDS: PANTOprazole SOD 40 MG TAB PO SCH (08:24)
[2018-02-23] MEDS: LORAZEPAM 0.5 MG TAB PO PRN ×2 (08:37→17:44)
[2018-02-23 09:01] LABS: HEMATOCRIT 34.2 % (42-52); HEMOGLOBIN 11.4 g/dL (14.0-18.0); MEAN CELL VOLUME 89.8 fL (80-100); MEAN CORPUSCULAR HEMOGLOBIN 29.9 pg (25-34); MEAN CORPUSCULAR HGB CONC 33.3 g/dl (32-36); MEAN PLATELET VOLUME 9.2 fL (7.4-10.4); PLATELET COUNT 158 K/uL (130-400); RED CELL DISTRIBUTION WIDTH CV 17.1 % (11.5-14.5); RED CELL DISTRIBUTION WIDTH SD 54.4 fL (36.4-46.3); WHITE BLOOD COUNT 2.27 K/uL (4.8-10.8)
[2018-02-23 09:26] LABS: IG# 0.02 K/uL (0.00-0.02); LYMPH % 21.6 %; LYMPH ABS # 0.49 K/uL (1.2-3.4); MONO % 6.2 %; MONO ABS # 0.14 K/uL (0.11-0.59); NEUT % 71.3 %; NEUT ABS # 1.62 K/uL (1.4-6.5)
[2018-02-23 09:35] LABS: CALCIUM 7.6 mg/dl (8.5-10.1); CREATININE 1.18 mg/dl (0.60-1.40); POTASSIUM 4.3 mmol/L (3.5-5.1)
--- NOTE | 2018-02-23 10:48 | Surgery Progress Note ---
Surgery Progress Note Date of Service Feb 23, 2018. 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 We had planned on placing a Pleurx catheter into his abdomen so that he can avoid repeat paracentesis, however yesterday he was diagnosed with C. difficile colitis. Otherwise no changes, does feel abdomen is a little distended. Objective Vital Signs: Date Time Temp Pulse Resp B/P (MAP) Pulse Ox O2 Delivery O2 Flow Rate FiO2 02/23/18 09:11 36.4 88 18 121/90 (100) 96 02/23/18 08:00 99 Room Air 02/23/18 06:28 110 20 138/100 (113) 99 Room Air 02/23/18 00:00 97 Room Air 02/22/18 20:25 36.9 98 18 111/80 (90) 98 Room Air 02/22/18 20:00 Room Air 02/22/18 15:17 36.4 123 20 116/86 (96) 97 02/22/18 11:26 36.4 101 20 118/78 (91) 97 Room Air General Appearance: WD/WN, no apparent distress Abdomen: normal bowel sounds, non tender, soft, no organomegaly, no pulsatile mass, + distended, + hernia (Umbilical hernia), + pertinent finding (Fluid wave) Laboratory Results: Results Past 24 Hours Test 02/23/18 05:24 02/23/18 08:53 02/23/18 09:04 Range/Units Albumin 2.5 3.4-5.0 gm/dl White Blood Count 2.27 4.8-10.8 K/uL Red Blood Count 3.81 4.7-6.1 M/uL Hemoglobin 11.4 14.0-18.0 g/dL Hematocrit 34.2 42-52 % Mean Corpuscular Volume 89.8 80-100 fL Mean Corpuscular Hemoglobin 29.9 25-34 pg Mean Corpuscular Hemoglobin Concent 33.3 32-36 g/dl Platelet Count 158 130-400 K/uL Mean Platelet Volume 9.2 7.4-10.4 fL Neutrophils (%) (Auto) 71.3 % Lymphocytes (%) (Auto) 21.6 % Monocytes (%) (Auto) 6.2 % Eosinophils (%) (Auto) 0.0 % Basophils (%) (Auto) 0.0 % Neutrophils # (Auto) 1.62 1.4-6.5 K/uL Lymphocytes # (Auto) 0.49 1.2-3.4 K/uL Monocytes # (Auto) 0.14 0.11-0.59 K/uL Eosinophils # (Auto) 0.00 0-0.5 K/uL Basophils # (Auto) 0.00 0-0.2 K/uL RDW Standard Deviation 54.4 36.4-46.3 fL RDW Coefficient of Variation 17.1 11.5-14.5 % Immature Granulocyte % (Auto) 0.9 % Immature Granulocyte # (Auto) 0.02 0.00-0.02 K/uL Dohle Bodies 1+ Giant Platelets 1+ Sodium Level 135 136-145 mmol/L Potassium Level 4.3 3.5-5.1 mmol/L Chloride Level 100 98-107 mmol/L Carbon Dioxide Level 25 21-32 mmol/L Anion Gap 9.0 3-11 mmol/L Blood Urea Nitrogen 39 7-18 mg/dl Creatinine 1.18 0.60-1.40 mg/dl Est Creatinine Clear Calc Drug Dose 95.8 ml/min Estimated GFR () 84.7 Estimated GFR (Non- 73.0 BUN/Creatinine Ratio 32.6 10-20 Random Glucose 110 70-99 mg/dl Calcium Level 7.6 8.5-10.1 mg/dl Bedside Glucose 115 70-99 mg/dl Microbiology Results 02/22/18 C.difficile Toxin B Gene (PCR) - Final, Complete Positive for C. difficile toxin B gene Assessment & Plan 48-year-old male with malignant ascites, and recently diagnosed C. difficile infection, on chemotherapy. At this point I do not feel that is in his best interest to Place Pleurx catheter while he has an active C. difficile infection. We can schedule this as an outpatient in 1-2 weeks. Cancel surgery for today Diet as tolerated Continue treatment for C. difficile Plan for Pleurx catheter placement of the abdomen in 1-2 weeks after C. difficile infection has been treated Surgery will sign off for now, please call with questions or concerns
--- NOTE | 2018-02-23 11:48 | Hospitalist Progress Note ---
Hospitalist Progress Note Date of Service Feb 23, 2018. (Nohemi Nash CRNP) Subjective Pt evaluation today including: conversation w/ patient, physical exam, chart review, lab review Voiding: no voiding problems Mr. Juárez is anxious and tearful this morning. He feels increased discomfort due to his ascites. He is not having pain. We did discuss the role of palliative care and he is agreeable to meet with them. ROS Constitutional: no chills, aches, sweats or fever Respiratory: no sob,cough, sputum, or wheezing Cardiac: no chest pain, palpitations, edema, orthopnea or lightheadedness GI: no abdominal pain, nausea, vomiting, diarrhea or constipation : no dysuria or hesitancy Extremities: no joint pain or weakness Skin: no rash All other systems reviewed and negative (Nohemi Nash CRNP) Medications Medications Administered Medications (Trade) Dose Ordered Sig/Suraj Route Start Time Stop Time Status Last Admin Dose Admin Sodium Chloride 500 ml @ 999 mls/hr Q31M STAT IV 02/15/18 10:05 02/15/18 10:35 DC 02/15/18 10:23 999 MLS/HR Ondansetron HCl (Zofran Inj) 4 mg Q6H PRN IV 02/15/18 10:30 03/17/18 10:29 02/22/18 08:38 4 MG Magnesium Sulfate 100 ml @ 100 mls/hr Q1H IV 02/15/18 11:30 02/15/18 13:37 DC 02/15/18 15:52 100 MLS/HR Atorvastatin Calcium (Lipitor Tab) 10 mg DAILY PO 02/16/18 08:00 03/18/18 08:59 02/23/18 08:23 10 MG Calcium Carbonate (oS-Oli 500 TAB) 1,250 mg Q2HWA PO 02/15/18 12:00 03/17/18 11:59 02/23/18 10:16 1,250 MG Cholecalciferol (Vitamin D Tab) 2,000 inter.unit QAM PO 02/16/18 08:00 03/18/18 08:59 02/23/18 08:23 2,000 INTER.UNIT Clopidogrel Bisulfate (plAVix TAB) 75 mg DAILY PO 02/16/18 08:00 03/18/18 08:59 Future Hold 02/21/18 08:53 75 MG Dexamethasone (Decadron Tab) 4 mg QAM PO 02/16/18 08:00 02/16/18 18:14 DC 02/16/18 08:07 4 MG Enoxaparin Sodium (Lovenox Inj) 40 mg Q24H SQ 02/15/18 14:00 02/22/18 15:43 DC 02/21/18 14:00 40 MG Loperamide HCl (Imodium Cap) 2 mg QID PO 02/15/18 12:14 02/22/18 16:40 DC 02/22/18 12:00 2 MG Loratadine (Claritin Tab) 10 mg DAILY PO 02/16/18 08:00 03/18/18 08:59 02/23/18 08:23 10 MG Lorazepam (Ativan Tab) 0.5 mg Q4 PRN PO 02/15/18 11:15 03/17/18 11:14 02/23/18 08:37 0.5 MG Magnesium Oxide (Mag-Ox Tab) 600 mg BID PO 02/15/18 20:00 03/17/18 20:59 02/23/18 08:22 600 MG Metoclopramide HCl (Reglan Tab) 10 mg ACHS PO 02/15/18 16:30 03/17/18 16:29 02/23/18 10:16 10 MG Mirtazapine (Remeron Solutab) 15 mg HS PO 02/15/18 21:00 02/16/18 18:14 DC 02/15/18 20:54 15 MG Montelukast Sodium (Singulair Tab) 10 mg DAILY PO 02/16/18 08:00 03/18/18 08:59 02/23/18 08:23 10 MG Pantoprazole Sodium (Protonix Tab) 40 mg DAILY PO 02/16/18 08:00 03/18/18 08:59 02/23/18 08:24 40 MG Potassium Chloride (Klor-Con Tab) 40 meq QAM PO 02/16/18 08:00 03/18/18 08:59 02/23/18 08:24 40 MEQ Enteral Nutritional Formula (Boost Breeze Nutritional Drink) 1 box BID PO 02/15/18 20:00 03/17/18 20:59 02/21/18 08:51 1 BOX Sodium Chloride 1,000 ml @ 100 mls/hr Q10H IV 02/15/18 11:15 02/16/18 07:14 DC 02/15/18 21:15 100 MLS/HR Lorazepam (Ativan Inj) 0.5 mg NOW STAT IV 02/15/18 11:38 02/15/18 11:56 DC 02/15/18 12:41 0.5 MG Heparin Sodium (Porcine) (Heparin 10 Unit/ ml 5 ml Flush) 5 ml PRN PRN FLUSH 02/15/18 14:15 03/17/18 14:14 02/23/18 09:03 5 ML Lorazepam (Ativan Inj) 0.5 mg HS PRN IV 02/15/18 16:30 03/17/18 16:29 02/21/18 20:48 0.5 MG Lorazepam 0.5 mg/ Syringe 1 ml @ 1 mls/min HS PRN IV 02/15/18 21:00 03/17/18 20:59 02/22/18 21:14 1 MLS/MIN Magnesium Sulfate 100 ml @ 100 mls/hr TODAY@0915 ONCE IV 02/16/18 09:15 02/16/18 10:14 DC 02/16/18 10:24 100 MLS/HR Albumin Human (Albumin 25%) 12.5 gm TODAY@1230,1300 IV 02/16/18 12:30 02/16/18 13:01 DC 02/16/18 12:46 12.5 GM Albumin Human (Albumin 25%) 12.5 gm TODAY@1400,1430 IV 02/16/18 14:00 02/16/18 18:00 DC 02/16/18 17:43 12.5 GM Mirtazapine (Remeron Solutab) 30 mg HS PO 02/16/18 21:00 02/22/18 16:40 DC 02/21/18 20:28 30 MG Dexamethasone (Decadron Tab) 6 mg QAM PO 02/17/18 08:00 03/19/18 07:59 02/23/18 08:23 6 MG Dexamethasone (Decadron Tab) 2 mg QPM PO 02/16/18 21:00 03/18/18 20:59 02/22/18 20:20 2 MG Magnesium Sulfate 100 ml @ 100 mls/hr NOW ONCE IV 02/17/18 08:45 02/17/18 09:44 DC 02/17/18 09:20 100 MLS/HR Irinotecan HCl 400 mg/Irinotecan HCl 40 mg/Dextrose 572 ml @ 380 mls/hr TODAY@1300 IV 02/17/18 13:00 02/17/18 23:59 DC 02/17/18 15:48 380 MLS/HR Leucovorin Calcium 984 mg/ Dextrose 149.2 ml @ 100 mls/hr TODAY@1300 IV 02/17/18 13:00 02/17/18 23:59 DC 02/17/18 15:48 100 MLS/HR Fluorouracil 2950 mg/Sodium Chloride 1,059 ml @ 46 mls/hr Q23H IV 02/17/18 15:00 02/19/18 12:59 DC 02/18/18 14:15 46 MLS/HR Fluorouracil 980 mg/Syringe 19.6 ml @ 5 mls/min TODAY@1445 IV 02/17/18 14:45 02/17/18 23:59 DC 02/17/18 17:45 5 MLS/MIN Dexamethasone Sodium Phosphate 10 mg/Sodium Chloride 27.5 ml @ 82.5 mls/hr TODAY@1200 IV 02/17/18 12:00 02/17/18 23:59 DC 02/17/18 14:01 82.5 MLS/HR Palonosetron 0.25 mg/Syringe 5 ml @ 10 mls/min TODAY@1200 IV 02/17/18 12:00 02/17/18 23:59 DC 02/17/18 14:01 10 MLS/MIN Albumin Human (Albumin 25%) 12.5 gm TODAY@1115,1130 IV 02/17/18 11:15 02/17/18 11:31 IA 02/17/18 12:54 12.5 GM Fosaprepitant 150 mg/Sodium Chloride 150 ml @ 300 mls/hr TODAY@1400 IV 02/17/18 14:00 02/17/18 23:59 DC 02/17/18 14:01 300 MLS/HR Magnesium Sulfate 100 ml @ 100 mls/hr TODAY@0915 ONCE IV 02/18/18 09:15 02/18/18 10:14 DC 02/18/18 11:58 100 MLS/HR Albumin Human (Albumin 25%) 12.5 gm DAILY@0900,1000 IV 02/18/18 09:00 02/21/18 08:59 DC 02/20/18 10:23 12.5 GM Albumin Human (Albumin 25%) 12.5 gm Q1H IV 02/18/18 18:30 02/18/18 20:29 DC 02/18/18 20:40 12.5 GM Albumin Human (Albumin 25%) 12.5 gm Q1H IV 02/18/18 21:00 02/18/18 22:59 DC 02/19/18 00:38 12.5 GM Albumin Human (Albumin 25%) 12.5 gm Q1H IV 02/18/18 23:30 02/19/18 01:29 DC 02/19/18 02:32 12.5 GM Magnesium Sulfate 100 ml @ 100 mls/hr NOW ONCE IV 02/20/18 08:30 02/20/18 09:29 DC 02/20/18 09:18 100 MLS/HR Albumin Human (Albumin 25%) 12.5 gm Q1H IV 02/20/18 14:15 02/20/18 17:16 DC 02/20/18 17:19 12.5 GM Mirtazapine (Remeron Solutab) 45 mg HS PO 02/22/18 21:00 03/17/18 20:59 02/22/18 20:20 45 MG Vancomycin HCl (Vancomycin Oral Soln) 250 mg Q6 PO 02/22/18 18:00 03/04/18 17:59 02/23/18 06:04 250 MG Raspberry (Raspberry Syrup 5ml Cup) 5 ml Q6H PO 02/22/18 18:00 03/04/18 17:59 02/23/18 06:04 5 ML Lactobacillus Acidophilus (Floranex Tab) 4 tab QIDM PO 02/22/18 20:00 03/24/18 19:59 02/23/18 08:24 4 TAB Nystatin (Mycostatin Susp) 5 ml QID PO 02/22/18 20:00 03/04/18 19:59 02/23/18 08:23 5 ML (Nohemi Nash CRNP) Objective Vital Signs Date Time Temp Pulse Resp B/P (MAP) Pulse Ox O2 Delivery O2 Flow Rate FiO2 02/23/18 09:11 36.4 88 18 121/90 (100) 96 02/23/18 08:00 99 Room Air 02/23/18 06:28 110 20 138/100 (113) 99 Room Air 02/23/18 00:00 97 Room Air 02/22/18 20:25 36.9 98 18 111/80 (90) 98 Room Air 02/22/18 20:00 Room Air 02/22/18 15:17 36.4 123 20 116/86 (96) 97 02/22/18 11:26 36.4 101 20 118/78 (91) 97 Room Air (Nohemi Nash CRNP) Physical Exam Notes: General: no distress Eyes: normal inspection, PERLL Respiratory: chest non tender, clear to auscultation, normal breath sounds, no respiratory distress, no accessory muscle use Cardiac: regular rate and rhythm, no rub or gallop, no murmur, no edema, no jvd GI/: active bowel sounds, no abd pain or tenderness, soft, distended Extremities: normal range of motion, normal strength, non tender Neuro/Psych: alert and oriented x 3, normal mood and affect Skin: normal color, dry (Nohemi Nash CRNP) Laboratory Results Last 24 Hours Test 02/23/18 05:24 02/23/18 08:53 02/23/18 09:04 Albumin 2.5 gm/dl White Blood Count 2.27 K/uL Red Blood Count 3.81 M/uL Hemoglobin 11.4 g/dL Hematocrit 34.2 % Mean Corpuscular Volume 89.8 fL Mean Corpuscular Hemoglobin 29.9 pg Mean Corpuscular Hemoglobin Concent 33.3 g/dl Platelet Count 158 K/uL Mean Platelet Volume 9.2 fL Neutrophils (%) (Auto) 71.3 % Lymphocytes (%) (Auto) 21.6 % Monocytes (%) (Auto) 6.2 % Eosinophils (%) (Auto) 0.0 % Basophils (%) (Auto) 0.0 % Neutrophils # (Auto) 1.62 K/uL Lymphocytes # (Auto) 0.49 K/uL Monocytes # (Auto) 0.14 K/uL Eosinophils # (Auto) 0.00 K/uL Basophils # (Auto) 0.00 K/uL RDW Standard Deviation 54.4 fL RDW Coefficient of Variation 17.1 % Immature Granulocyte % (Auto) 0.9 % Immature Granulocyte # (Auto) 0.02 K/uL Dohle Bodies 1+ Giant Platelets 1+ Sodium Level 135 mmol/L Potassium Level 4.3 mmol/L Chloride Level 100 mmol/L Carbon Dioxide Level 25 mmol/L Anion Gap 9.0 mmol/L Blood Urea Nitrogen 39 mg/dl Creatinine 1.18 mg/dl Est Creatinine Clear Calc Drug Dose 95.8 ml/min Estimated GFR () 84.7 Estimated GFR (Non- 73.0 BUN/Creatinine Ratio 32.6 Random Glucose 110 mg/dl Calcium Level 7.6 mg/dl Bedside Glucose 115 mg/dl (Nohemi Nash ., MACKENZIE) Assessment and Plan 48 y/o male here for 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 Dehydration, weakness, protein malnutrition--stable -Creatinine remains stable, at baseline following IVF - Increased Remeron to 45 mg PO hs, continue Decadron 6 mg PO qam and 2 mg PO qpm -Nutrition consulted. Continue Boost BID, snacks TID Ascites- -Ultrasound guided paracentesis performed 02/16, 4.6L fluid removed, 02/18 >9 K fluid removed, 02/20 4L removed. Albumin IV given before and after paracentesis -Albumin 2.7 today - Pleurx catheter unable to be placed today as patient is positive for C diff, will schedule outpatient in 1-2 weeks. 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 Any exceptions or clarifications are listed here: None Patient has had his abdominal Pleurx catheter postponed due to recent C. difficile he had a therapeutic paracentesis with removal of slightly over 5 L replacement albumin is ordered Documented By: Conrado Shepherd (Conrado Shepherd M.D.)
[2018-02-23] MEDS: CLOPIDOGREL BISULFATE 75 MG TAB PO SCH (15:00)
--- NOTE | 2018-02-23 15:07 | DIAGNOSTIC IMAGING REPORT ---
ULTRASOUND-GUIDED THERAPEUTIC PARACENTESIS: HISTORY: Ascites. Procedure: The procedure and its risks, benefits and alternatives were discussed with the patient and written informed consent was obtained. Preliminary ultrasound of the abdomen was performed to determine a safe needle entry site. The left lower quadrant was prepped and draped in the usual sterile fashion. 1% Lidocaine was used for local anesthesia. A paracentesis needle-sheath was inserted into the peritoneal space using ultrasound guidance. The needle was removed and the sheath was connected to tubing and a vacuum suction device. A total of 5.4 liters of cloudy ascites was aspirated. The sheath was removed and a sterile dressing applied. The patient tolerated the procedure well and there were no immediate complications. IMPRESSION: Ultrasound-guided therapeutic paracentesis with aspiration of 5.4 liters of ascites. Electronically signed by: Jesse Wellington M.D. 02/23/2018 3:05 PM Dictated Date/Time: 02/23/2018 3:05 PM
--- NOTE | 2018-02-23 16:14 | Palliative Care Consultation ---
Consultation Date of Consultation: Feb 23, 2018. 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 History obtained from record and some from patient. Admission H&P has detailed history, but essentially this man had an incidental finding of metastatic disease back in October of this year. He started chemotherapy in December which he did not tolerate well. He went for a second opinion at the [facility]. He was told by multiple providers that the goal of any cancer treatment would not be curative, but the goal would be to prolong his life. He is now on chemotherapy through Dr. Carson here at our cancer center. He has been readmitted to the hospital four times in the last two months, mostly with abdominal ascites. Patient was to go for Pleur-x catheter to drain ascites today, but contracted C. diff so that procedure is on hold. His prognosis is guarded at this point and patient has been tearful. Palliative care is consulted to discuss goals of care and provide support. I met with the patient and his . Patient is awake, alert and oriented. We spent a good amount of time discussing what palliative care is and what our role would be in his care. Patient discussed at length about his fears including end of life care and going home trying to manage his complex illness. Patient prefers to be in the hospital at time because he is so ill, but also wants to be home with his . patient states he is not ready to "throw in the towel" yet, and his goal is to get well enough to continue to pursue treatment. At the same time, patient stated he knows he is close to the end of his life. Today, we spent time talking about many issues and establishing rapport. Past Medical/Surgical History Medical History: 1) HTN 2) HPL 3) CVA 10/19/17 - presented with R arm and face paralysis and aphasia 4) Metastatic carcinoma of unknown primary - widespread lymphadenopathy, sclerotic and lytic bone lesions, most prominently in the ribs and spine. Current suspected primary is small bowel so that this is being treated as one would treat colorectal CA. 5) Anasarca including ascites requiring regular drainage. 6) BL malignant pleural effusions 7) Raheem's esophagus - grade D esophagitis and multiple duodenal erosions on EGD 01/05. Colonoscopy with diverticulosis only. Biopsy results from an intestinal ulcer provided evidence of malignancy. 8) DVT 01/03 - currently remains on a prophylactic dose of Lovenox. 9) L hydronephrosis due to partial obstruction due to casts/debris - declined ureteral stent placement. Social History Smoking Status: Never Smoker History of Alcohol Use: No Drug Use: none Marital Status: Housing Status: lives with family Occupation Status: disabled Review of Systems Constitutional: + weight loss, + weakness, + fatigue ENT: No trouble swallowing Respiratory: + shortness of breath (from distended abdomen), No cough, No sputum Cardiac: + edema, No chest pain Abdomen: No pain, No nausea, No vomiting Male : No problem reported Psychiatric: + depression symptoms (related to situation), No anxiety Allergies Coded Allergies: Sulfa Antibiotics (Verified Allergy, Intermediate, RASH, 02/15/18) Medications Current Inpatient Medications Medications (Trade) Dose Ordered Sig/Suraj Route Start Time Stop Time Status Last Admin Dose Admin Acetaminophen (Tylenol Tab) 650 mg Q4H PRN PO 02/15/18 10:30 03/17/18 10:29 Al Hydrox/Mg Hydrox/Simethicone (Maalox Max Susp) 15 ml Q4H PRN PO 02/15/18 10:30 03/17/18 10:29 Magnesium Hydroxide (Milk Of Magnesia Susp) 30 ml Q6H PRN PO 02/15/18 10:30 03/17/18 10:29 Polyethylene (Miralax Powder Packet) 17 gm DAILY PRN PO 02/15/18 10:30 03/17/18 10:29 Ondansetron HCl (Zofran Inj) 4 mg Q6H PRN IV 02/15/18 10:30 03/17/18 10:29 02/22/18 08:38 4 MG Atorvastatin Calcium (Lipitor Tab) 10 mg DAILY PO 02/16/18 08:00 03/18/18 08:59 02/23/18 08:23 10 MG Calcium Carbonate (oS-Oli 500 TAB) 1,250 mg Q2HWA PO 02/15/18 12:00 03/17/18 11:59 02/23/18 15:00 1,250 MG Cholecalciferol (Vitamin D Tab) 2,000 inter.unit QAM PO 02/16/18 08:00 03/18/18 08:59 02/23/18 08:23 2,000 INTER.UNIT Loratadine (Claritin Tab) 10 mg DAILY PO 02/16/18 08:00 03/18/18 08:59 02/23/18 08:23 10 MG Lorazepam (Ativan Tab) 0.5 mg Q4 PRN PO 02/15/18 11:15 03/17/18 11:14 02/23/18 08:37 0.5 MG Magnesium Oxide (Mag-Ox Tab) 600 mg BID PO 02/15/18 20:00 03/17/18 20:59 02/23/18 08:22 600 MG Metoclopramide HCl (Reglan Tab) 10 mg ACHS PO 02/15/18 16:30 03/17/18 16:29 02/23/18 10:16 10 MG Montelukast Sodium (Singulair Tab) 10 mg DAILY PO 02/16/18 08:00 03/18/18 08:59 02/23/18 08:23 10 MG Pantoprazole Sodium (Protonix Tab) 40 mg DAILY PO 02/16/18 08:00 03/18/18 08:59 02/23/18 08:24 40 MG Potassium Chloride (Klor-Con Tab) 40 meq QAM PO 02/16/18 08:00 03/18/18 08:59 02/23/18 08:24 40 MEQ Enteral Nutritional Formula (Boost Breeze Nutritional Drink) 1 box BID PO 02/15/18 20:00 03/17/18 20:59 02/21/18 08:51 1 BOX Miscellaneous (Iv Fluids Completed) 1 ea PRN PRN N/A 02/15/18 14:15 02/15/19 14:14 Heparin Sodium (Porcine) (Heparin 10 Unit/ ml 5 ml Flush) 5 ml PRN PRN FLUSH 02/15/18 14:15 03/17/18 14:14 02/23/18 09:03 5 ML Lorazepam (Ativan Inj) 0.5 mg HS PRN IV 02/15/18 16:30 03/17/18 16:29 02/21/18 20:48 0.5 MG Lorazepam 0.5 mg/ Syringe 1 ml @ 1 mls/min HS PRN IV 02/15/18 21:00 03/17/18 20:59 02/22/18 21:14 1 MLS/MIN Dexamethasone (Decadron Tab) 6 mg QAM PO 02/17/18 08:00 03/19/18 07:59 02/23/18 08:23 6 MG Dexamethasone (Decadron Tab) 2 mg QPM PO 02/16/18 21:00 03/18/18 20:59 02/22/18 20:20 2 MG Zolpidem Tartrate (Ambien Tab) 10 mg HSZ PRN PO 02/18/18 19:00 03/17/18 10:29 Mirtazapine (Remeron Solutab) 45 mg HS PO 02/22/18 21:00 03/17/18 20:59 02/22/18 20:20 45 MG Vancomycin HCl (Vancomycin Oral Soln) 250 mg Q6 PO 02/22/18 18:00 03/04/18 17:59 02/23/18 12:48 250 MG Raspberry (Raspberry Syrup 5ml Cup) 5 ml Q6H PO 02/22/18 18:00 03/04/18 17:59 02/23/18 12:48 5 ML Lactobacillus Acidophilus (Floranex Tab) 4 tab QIDM PO 02/22/18 20:00 03/24/18 19:59 02/23/18 12:48 4 TAB Nystatin (Mycostatin Susp) 5 ml QID PO 02/22/18 20:00 03/04/18 19:59 02/23/18 12:48 5 ML Clopidogrel Bisulfate (plAVix TAB) 75 mg DAILY PO 02/23/18 14:00 03/25/18 13:59 02/23/18 15:00 75 MG Albumin Human (Albumin 25%) 50 gm ONE IV 02/23/18 15:45 02/26/18 15:44 UNV Physical Exam Date Time Temp Pulse Resp B/P (MAP) Pulse Ox O2 Delivery O2 Flow Rate FiO2 02/23/18 15:29 36.6 113 16 120/89 (99) 99 Room Air 02/23/18 09:11 36.4 88 18 121/90 (100) 96 8/8/18 08:00 99 Room Air 02/23/18 06:28 110 20 138/100 (113) 99 Room Air 02/23/18 00:00 97 Room Air 02/22/18 20:25 36.9 98 18 111/80 (90) 98 Room Air 02/22/18 20:00 Room Air General Appearance: no apparent distress ENT: hearing grossly normal Neck: supple, no JVD Respiratory: no respiratory distress, no accessory muscle use, + pertinent finding (room air) Cardiovascular: regular rate, rhythm, no murmur, + normal peripheral pulses Abdomen: normal bowel sounds, non tender, + distended Neurologic/Psychiatric: alert, normal mood/affect (tearful), oriented x 3 Skin: + pallor Laboratory Results Last 24 Hours Test 02/23/18 05:24 02/23/18 08:53 02/23/18 09:04 Albumin 2.5 gm/dl White Blood Count 2.27 K/uL Red Blood Count 3.81 M/uL Hemoglobin 11.4 g/dL Hematocrit 34.2 % Mean Corpuscular Volume 89.8 fL Mean Corpuscular Hemoglobin 29.9 pg Mean Corpuscular Hemoglobin Concent 33.3 g/dl Platelet Count 158 K/uL Mean Platelet Volume 9.2 fL Neutrophils (%) (Auto) 71.3 % Lymphocytes (%) (Auto) 21.6 % Monocytes (%) (Auto) 6.2 % Eosinophils (%) (Auto) 0.0 % Basophils (%) (Auto) 0.0 % Neutrophils # (Auto) 1.62 K/uL Lymphocytes # (Auto) 0.49 K/uL Monocytes # (Auto) 0.14 K/uL Eosinophils # (Auto) 0.00 K/uL Basophils # (Auto) 0.00 K/uL RDW Standard Deviation 54.4 fL RDW Coefficient of Variation 17.1 % Immature Granulocyte % (Auto) 0.9 % Immature Granulocyte # (Auto) 0.02 K/uL Dohle Bodies 1+ Giant Platelets 1+ Sodium Level 135 mmol/L Potassium Level 4.3 mmol/L Chloride Level 100 mmol/L Carbon Dioxide Level 25 mmol/L Anion Gap 9.0 mmol/L Blood Urea Nitrogen 39 mg/dl Creatinine 1.18 mg/dl Est Creatinine Clear Calc Drug Dose 95.8 ml/min Estimated GFR () 84.7 Estimated GFR (Non- 73.0 BUN/Creatinine Ratio 32.6 Random Glucose 110 mg/dl Calcium Level 7.6 mg/dl Bedside Glucose 115 mg/dl Assessment & Plan Palliative Performance Scale: 60 % Problem list: Weakness Weight loss Abdominal ascites Metastatic adenocarcinoma, 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 difficile Palliative care recs: -Most of visit was spent today discussing patient's concerns and fears related to his medical condition and with trying to manage his disease at home. -We did discuss goals. Patient wishes to continue with full treatment at this time. He did state, "I know I'm close to the end of life." "I don't want to at 48." He said once his quality of life is too poor, he would not want to prolong his life. -At this time, he wants to get well enough to continue chemotherapy. He has many hurdles to get over before that can happy. -Treatment for C. diff must continue prior to having abdominal pleur-x catheter placed to drain ascites. He will then follow with heme/onc as an outpatient for IVF/hydration and his cancer treatment. -Give patient's frequent readmissions, metastatic disease, declining performance status, now C. diff infection, his prognosis seems rather poor. -Patient agrees he would like to follow with palliative care while in hospital and possibly even as outpatient, so I will be more than happy to follow along. Thank you kindly for this consult. I will follow. Total time spent 70 minutes with >50% of time spent at bedside with patient and discussing medical condition and goals of care.
[2018-02-23] MEDS: ALBUMIN HUMAN 25% 12.5 GM/50 ML VIAL IV SCH ×4 (17:21→18:48)
[2018-02-23] MEDS: CALCIUM CARBONATE 500 MG CHEWABLE PO SCH ×2 (20:10→21:29)
[2018-02-23] MEDS: MIRTAZAPINE SOLTAB 15 MG PO SCH (21:26)
[2018-02-23] MEDS: LORAZEPAM INJ 0.5 MG in SYRINGE 0.75 ML IV PRN (21:28)
[2018-02-24] MEDS: RASPBERRY SYRUP 5 ML UDP PO SCH ×5 (00:09→23:48)
[2018-02-24] MEDS: VANCOMYCIN HCL 250 MG/5 ML SOLN PO SCH ×5 (00:09→23:49)
[2018-02-24] MEDS: METOCLOPRAMIDE HCL 10 MG TAB PO SCH ×4 (05:59→22:21)
[2018-02-24] MEDS: CALCIUM CARBONATE 500 MG CHEWABLE PO SCH ×9 (06:00→22:46)
[2018-02-24 06:10] LABS: HEMATOCRIT 27.8 % (42-52); HEMOGLOBIN 9.4 g/dL (14.0-18.0); MEAN CELL VOLUME 89.7 fL (80-100); MEAN CORPUSCULAR HEMOGLOBIN 30.3 pg (25-34); MEAN CORPUSCULAR HGB CONC 33.8 g/dl (32-36); MEAN PLATELET VOLUME 8.6 fL (7.4-10.4); PLATELET COUNT 112 K/uL (130-400); RED CELL DISTRIBUTION WIDTH SD 55.5 fL (36.4-46.3)
[2018-02-24 06:39] LABS: CREATININE 0.98 mg/dl (0.60-1.40); POTASSIUM 3.9 mmol/L (3.5-5.1)
[2018-02-24] MEDS: MAGNESIUM OXIDE 400 MG TAB PO SCH ×2 (08:00→20:00)
[2018-02-24] MEDS: CLOPIDOGREL BISULFATE 75 MG TAB PO SCH (08:22)
[2018-02-24] MEDS: DEXAMETHASONE 4 MG TAB PO SCH ×2 (08:22→22:22)
[2018-02-24] MEDS: PANTOprazole SOD 40 MG TAB PO SCH (08:22)
[2018-02-24] MEDS: LACTOBACILLUS ACIDOPHILUS (FLORANEX) TAB PO SCH ×4 (08:22→22:22)
[2018-02-24] MEDS: NYSTATIN SUSP 500,000 U/5 ML UDC PO SCH ×4 (08:23→22:22)
[2018-02-24] MEDS: MONTELUKAST SOD 10 MG TAB PO SCH (08:23)
[2018-02-24] MEDS: POTASSIUM CHLORIDE 20 MEQ TABCR PO SCH (08:23)
[2018-02-24] MEDS: CHOLECALCIFEROL 1000 INTER.UNIT TAB PO SCH (08:23)
[2018-02-24] MEDS: ATORVASTATIN 10 MG TAB PO SCH (08:23)
[2018-02-24] MEDS: LORATADINE 10 MG TAB PO SCH (08:24)
[2018-02-24] MEDS: BOOST BREEZE NUTRITION DRINK 1 BOX PO SCH ×2 (08:24→20:00)
[2018-02-24] MEDS: LORAZEPAM 0.5 MG TAB PO PRN ×2 (09:55→18:34)
[2018-02-24 11:16] VITALS: BP 99/64; PULSE 101; TEMP 37; O2SAT 99
[2018-02-24 14:55] VITALS: BP 118/83; PULSE 106; TEMP 36.4; O2SAT 97
--- NOTE | 2018-02-24 15:56 | Hospitalist Progress Note ---
Hospitalist Progress Note Date of Service Feb 24, 2018. (Nohemi Nash .MACKENZIE) Subjective Pt evaluation today including: conversation w/ patient, physical exam, chart review, lab review, review of inpatient medication list Voiding: no voiding problems Mr. Juárez is tearful and anxious this morning. He is worried that his ascites is worsening after his paracentesis yesterday. ROS Constitutional: no chills, aches, sweats or fever Respiratory: no sob,cough, sputum, or wheezing Cardiac: no chest pain, palpitations, edema, orthopnea or lightheadedness GI: no abdominal pain, nausea, vomiting, diarrhea or constipation : no dysuria or hesitancy Extremities: no joint pain or weakness Skin: no rash All other systems reviewed and negative (Nohemi Nash CRNP) Medications Medications Administered Medications (Trade) Dose Ordered Sig/Suraj Route Start Time Stop Time Status Last Admin Dose Admin Sodium Chloride 500 ml @ 999 mls/hr Q31M STAT IV 02/15/18 10:05 02/15/18 10:35 DC 02/15/18 10:23 999 MLS/HR Ondansetron HCl (Zofran Inj) 4 mg Q6H PRN IV 02/15/18 10:30 03/17/18 10:29 02/22/18 08:38 4 MG Magnesium Sulfate 100 ml @ 100 mls/hr Q1H IV 02/15/18 11:30 02/15/18 13:37 DC 02/15/18 15:52 100 MLS/HR Atorvastatin Calcium (Lipitor Tab) 10 mg DAILY PO 02/16/18 08:00 03/18/18 08:59 02/24/18 08:23 10 MG Calcium Carbonate (oS-Oli 500 TAB) 1,250 mg Q2HWA PO 02/15/18 12:00 02/23/18 18:38 DC 02/23/18 15:00 1,250 MG Cholecalciferol (Vitamin D Tab) 2,000 inter.unit QAM PO 02/16/18 08:00 02/23/18 18:40 DC 02/23/18 08:23 2,000 INTER.UNIT Clopidogrel Bisulfate (plAVix TAB) 75 mg DAILY PO 02/16/18 08:00 02/23/18 13:53 DC 02/21/18 08:53 75 MG Dexamethasone (Decadron Tab) 4 mg QAM PO 02/16/18 08:00 02/16/18 18:14 DC 02/16/18 08:07 4 MG Enoxaparin Sodium (Lovenox Inj) 40 mg Q24H SQ 02/15/18 14:00 02/22/18 15:43 DC 02/21/18 14:00 40 MG Loperamide HCl (Imodium Cap) 2 mg QID PO 02/15/18 12:14 02/22/18 16:40 DC 02/22/18 12:00 2 MG Loratadine (Claritin Tab) 10 mg DAILY PO 02/16/18 08:00 03/18/18 08:59 02/24/18 08:24 10 MG Lorazepam (Ativan Tab) 0.5 mg Q4 PRN PO 02/15/18 11:15 03/17/18 11:14 02/24/18 09:55 0.5 MG Magnesium Oxide (Mag-Ox Tab) 600 mg BID PO 02/15/18 20:00 03/17/18 20:59 02/23/18 08:22 600 MG Metoclopramide HCl (Reglan Tab) 10 mg ACHS PO 02/15/18 16:30 03/17/18 16:29 02/24/18 09:55 10 MG Mirtazapine (Remeron Solutab) 15 mg HS PO 02/15/18 21:00 02/16/18 18:14 DC 02/15/18 20:54 15 MG Montelukast Sodium (Singulair Tab) 10 mg DAILY PO 02/16/18 08:00 03/18/18 08:59 02/24/18 08:23 10 MG Pantoprazole Sodium (Protonix Tab) 40 mg DAILY PO 02/16/18 08:00 03/18/18 08:59 02/24/18 08:22 40 MG Potassium Chloride (Klor-Con Tab) 40 meq QAM PO 02/16/18 08:00 03/18/18 08:59 02/24/18 08:23 40 MEQ Enteral Nutritional Formula (Boost Breeze Nutritional Drink) 1 box BID PO 02/15/18 20:00 03/17/18 20:59 02/24/18 08:24 1 BOX Sodium Chloride 1,000 ml @ 100 mls/hr Q10H IV 02/15/18 11:15 02/16/18 07:14 DC 02/15/18 21:15 100 MLS/HR Lorazepam (Ativan Inj) 0.5 mg NOW STAT IV 02/15/18 11:38 02/15/18 11:56 DC 02/15/18 12:41 0.5 MG Heparin Sodium (Porcine) (Heparin 10 Unit/ ml 5 ml Flush) 5 ml PRN PRN FLUSH 02/15/18 14:15 03/17/18 14:14 02/23/18 20:12 5 ML Lorazepam (Ativan Inj) 0.5 mg HS PRN IV 02/15/18 16:30 03/17/18 16:29 02/21/18 20:48 0.5 MG Lorazepam 0.5 mg/ Syringe 1 ml @ 1 mls/min HS PRN IV 02/15/18 21:00 03/17/18 20:59 02/23/18 21:28 1 MLS/MIN Magnesium Sulfate 100 ml @ 100 mls/hr TODAY@0915 ONCE IV 02/16/18 09:15 02/16/18 10:14 DC 02/16/18 10:24 100 MLS/HR Albumin Human (Albumin 25%) 12.5 gm TODAY@1230,1300 IV 02/16/18 12:30 02/16/18 13:01 DC 02/16/18 12:46 12.5 GM Albumin Human (Albumin 25%) 12.5 gm TODAY@1400,1430 IV 02/16/18 14:00 02/16/18 18:00 DC 02/16/18 17:43 12.5 GM Mirtazapine (Remeron Solutab) 30 mg HS PO 02/16/18 21:00 02/22/18 16:40 DC 02/21/18 20:28 30 MG Dexamethasone (Decadron Tab) 6 mg QAM PO 02/17/18 08:00 03/19/18 07:59 02/24/18 08:22 6 MG Dexamethasone (Decadron Tab) 2 mg QPM PO 02/16/18 21:00 03/18/18 20:59 02/23/18 21:26 2 MG Magnesium Sulfate 100 ml @ 100 mls/hr NOW ONCE IV 02/17/18 08:45 02/17/18 09:44 DC 02/17/18 09:20 100 MLS/HR Irinotecan HCl 400 mg/Irinotecan HCl 40 mg/Dextrose 572 ml @ 380 mls/hr TODAY@1300 IV 02/17/18 13:00 02/17/18 23:59 DC 02/17/18 15:48 380 MLS/HR Leucovorin Calcium 984 mg/ Dextrose 149.2 ml @ 100 mls/hr TODAY@1300 IV 02/17/18 13:00 02/17/18 23:59 DC 02/17/18 15:48 100 MLS/HR Fluorouracil 2950 mg/Sodium Chloride 1,059 ml @ 46 mls/hr Q23H IV 02/17/18 15:00 02/19/18 12:59 DC 02/18/18 14:15 46 MLS/HR Fluorouracil 980 mg/Syringe 19.6 ml @ 5 mls/min TODAY@1445 IV 02/17/18 14:45 02/17/18 23:59 DC 02/17/18 17:45 5 MLS/MIN Dexamethasone Sodium Phosphate 10 mg/Sodium Chloride 27.5 ml @ 82.5 mls/hr TODAY@1200 IV 02/17/18 12:00 02/17/18 23:59 DC 02/17/18 14:01 82.5 MLS/HR Palonosetron 0.25 mg/Syringe 5 ml @ 10 mls/min TODAY@1200 IV 02/17/18 12:00 02/17/18 23:59 DC 02/17/18 14:01 10 MLS/MIN Albumin Human (Albumin 25%) 12.5 gm TODAY@1115,1130 IV 02/17/18 11:15 02/17/18 11:31 DC 02/17/18 12:54 12.5 GM Fosaprepitant 150 mg/Sodium Chloride 150 ml @ 300 mls/hr TODAY@1400 IV 02/17/18 14:00 02/17/18 23:59 DC 02/17/18 14:01 300 MLS/HR Magnesium Sulfate 100 ml @ 100 mls/hr TODAY@0915 ONCE IV 02/18/18 09:15 02/18/18 10:14 DC 02/18/18 11:58 100 MLS/HR Albumin Human (Albumin 25%) 12.5 gm DAILY@0900,1000 IV 02/18/18 09:00 02/21/18 08:59 DC 02/20/18 10:23 12.5 GM Albumin Human (Albumin 25%) 12.5 gm Q1H IV 02/18/18 18:30 02/18/18 20:29 DC 02/18/18 20:40 12.5 GM Albumin Human (Albumin 25%) 12.5 gm Q1H IV 02/18/18 21:00 02/18/18 22:59 DC 02/19/18 00:38 12.5 GM Albumin Human (Albumin 25%) 12.5 gm Q1H IV 02/18/18 23:30 02/19/18 01:29 DC 02/19/18 02:32 12.5 GM Magnesium Sulfate 100 ml @ 100 mls/hr NOW ONCE IV 02/20/18 08:30 02/20/18 09:29 DC 02/20/18 09:18 100 MLS/HR Albumin Human (Albumin 25%) 12.5 gm Q1H IV 02/20/18 14:15 02/20/18 17:16 DC 02/20/18 17:19 12.5 GM Mirtazapine (Remeron Solutab) 45 mg HS PO 02/22/18 21:00 03/17/18 20:59 02/23/18 21:26 45 MG Vancomycin HCl (Vancomycin Oral Soln) 250 mg Q6 PO 02/22/18 18:00 03/04/18 17:59 02/24/18 12:01 250 MG Raspberry (Raspberry Syrup 5ml Cup) 5 ml Q6H PO 02/22/18 18:00 03/04/18 17:59 02/24/18 12:01 5 ML Lactobacillus Acidophilus (Floranex Tab) 4 tab QIDM PO 02/22/18 20:00 03/24/18 19:59 02/24/18 12:01 4 TAB Nystatin (Mycostatin Susp) 5 ml QID PO 02/22/18 20:00 03/04/18 19:59 02/24/18 12:01 5 ML Clopidogrel Bisulfate (plAVix TAB) 75 mg DAILY PO 02/23/18 14:00 03/25/18 13:59 02/24/18 08:22 75 MG Albumin Human (Albumin 25%) 12.5 gm 1630,1645,1700,1715 IV 02/23/18 16:30 02/23/18 17:16 DC 02/23/18 18:48 12.5 GM Calcium Carbonate (Tums Chew Tab) 1,500 mg Q2HWA PO 02/23/18 20:00 03/25/18 19:59 02/24/18 14:17 1,500 MG Cholecalciferol (Vitamin D Tab) 4,000 inter.unit QAM PO 02/24/18 08:00 03/18/18 08:59 02/24/18 08:23 4,000 INTER.UNIT (Nohemi Nash CRNP) Objective Vital Signs Date Time Temp Pulse Resp B/P (MAP) Pulse Ox O2 Delivery O2 Flow Rate FiO2 02/24/18 14:55 36.4 106 18 118/83 (95) 97 Room Air 02/24/18 11:16 37.0 101 18 99/64 (76) 99 Room Air 02/24/18 08:00 Room Air 02/24/18 03:37 Room Air 02/23/18 23:01 36.9 97 16 118/76 (90) 96 Room Air 02/23/18 16:00 99 Room Air (Nohemi Nash CRNP) Physical Exam Notes: General: no distress Eyes: normal inspection, PERLL Respiratory: chest non tender, clear to auscultation, normal breath sounds, no respiratory distress, no accessory muscle use Cardiac: regular rate and rhythm, no rub or gallop, no murmur, no edema, no jvd GI/: active bowel sounds, no abd pain or tenderness, soft, distended Extremities: normal range of motion, normal strength, non tender Neuro/Psych: alert and oriented x 3, normal mood and affect Skin: normal color, dry (Nohemi Nash CRNP) Laboratory Results Last 24 Hours Test 02/24/18 05:21 White Blood Count 1.40 K/uL Red Blood Count 3.10 M/uL Hemoglobin 9.4 g/dL Hematocrit 27.8 % Mean Corpuscular Volume 89.7 fL Mean Corpuscular Hemoglobin 30.3 pg Mean Corpuscular Hemoglobin Concent 33.8 g/dl RDW Standard Deviation 55.5 fL RDW Coefficient of Variation 17.0 % Platelet Count 112 K/uL Mean Platelet Volume 8.6 fL Sodium Level 135 mmol/L Potassium Level 3.9 mmol/L Chloride Level 102 mmol/L Carbon Dioxide Level 27 mmol/L Anion Gap 6.0 mmol/L Blood Urea Nitrogen 32 mg/dl Creatinine 0.98 mg/dl Est Creatinine Clear Calc Drug Dose 115.3 ml/min Estimated GFR () 106.0 Estimated GFR (Non- 91.4 BUN/Creatinine Ratio 32.2 Random Glucose 123 mg/dl Calcium Level 7.0 mg/dl Albumin 2.6 gm/dl (Nohemi Nash CRNP) Assessment and Plan 48 y/o male here for 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 Dehydration, weakness, protein malnutrition--stable -Creatinine remains stable, at baseline following IVF - Continue Remeron 45 mg PO hs, Decadron 6 mg PO qam and 2 mg PO qpm -Nutrition consulted. Continue Boost BID, snacks TID Ascites- -Ultrasound guided paracentesis performed 02/16, 4.6L fluid removed, 02/18 >9 K fluid removed, 02/20 4L removed, 02/23 5.4L removed Albumin IV given after paracentesis -Albumin 2.6 today - Pleurx catheter unable to be placed as patient is positive for C diff, will schedule outpatient in 1-2 weeks. 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 -Chemo completed 02/19 - palliative care consult Chemotherapy induced pancytopenia - stable -Continue to monitor, appreciate heme/onc recs HTN, HLD--stable -Continue Lipitor 10 mg PO qd Recent CVA 10/19/17 -Continue Plavix, statin DVT prophylaxis -Enoxaparin 40 mg SC q24h -SCDs Code Status -Level I, FULL RESUSCITATION STATUS Dispo -From home w/services (Nohemi Nash CRNP) HERBOLOGIST Physician Supervision Note: I discussed with Nohemi Nash HERBOLOGIST and agree with findings and plan as documented in the note. Any exceptions or clarifications are listed here: None Patient has had his abdominal Pleurx catheter postponed due to recent C. difficile he had a therapeutic paracentesis with removal of slightly over 5 L replacement albumin was ordered Documented By: Conrado Shepherd (Conrado Shepherd M.D.)
[2018-02-24 16:00] VITALS: O2SAT 97
[2018-02-24 20:05] VITALS: BP 116/77; PULSE 101; TEMP 36.1; O2SAT 99
[2018-02-24] MEDS: LORAZEPAM INJ 0.5 MG in SYRINGE 0.75 ML IV PRN (22:20)
[2018-02-24] MEDS: MIRTAZAPINE SOLTAB 15 MG PO SCH (22:21)
[2018-02-24 23:52] VITALS: BP 108/78; PULSE 101; TEMP 37; O2SAT 97
[2018-02-25] MEDS: CALCIUM CARBONATE 500 MG CHEWABLE PO SCH ×8 (05:29→20:52)
[2018-02-25] MEDS: VANCOMYCIN HCL 250 MG/5 ML SOLN PO SCH ×3 (05:29→17:58)
[2018-02-25] MEDS: RASPBERRY SYRUP 5 ML UDP PO SCH ×3 (05:29→17:58)
[2018-02-25] MEDS: METOCLOPRAMIDE HCL 10 MG TAB PO SCH ×4 (05:30→20:57)
[2018-02-25 05:54] LABS: HEMATOCRIT 30.5 % (42-52); HEMOGLOBIN 10.3 g/dL (14.0-18.0); MEAN CORPUSCULAR HEMOGLOBIN 30.4 pg (25-34); MEAN CORPUSCULAR HGB CONC 33.8 g/dl (32-36); MEAN PLATELET VOLUME 9.2 fL (7.4-10.4); PLATELET COUNT 117 K/uL (130-400); RED CELL DISTRIBUTION WIDTH CV 16.8 % (11.5-14.5); RED CELL DISTRIBUTION WIDTH SD 54.8 fL (36.4-46.3); WHITE BLOOD COUNT 2.23 K/uL (4.8-10.8)
[2018-02-25 06:28] LABS: ALBUMIN 2.3 gm/dl (3.4-5.0); CALCIUM 6.9 mg/dl (8.5-10.1); CREATININE 1.01 mg/dl (0.60-1.40); POTASSIUM 4.4 mmol/L (3.5-5.1)
[2018-02-25 06:39] VITALS: BMI 29.8
[2018-02-25 07:10] VITALS: BP 147/116; PULSE 101; TEMP 34.6; O2SAT 96
[2018-02-25] MEDS: MAGNESIUM OXIDE 400 MG TAB PO SCH ×2 (08:00→20:00)
[2018-02-25] MEDS: BOOST BREEZE NUTRITION DRINK 1 BOX PO SCH ×2 (08:00→20:00)
[2018-02-25] MEDS: MONTELUKAST SOD 10 MG TAB PO SCH (08:25)
[2018-02-25] MEDS: LORATADINE 10 MG TAB PO SCH (08:25)
[2018-02-25] MEDS: CLOPIDOGREL BISULFATE 75 MG TAB PO SCH (08:25)
[2018-02-25] MEDS: LACTOBACILLUS ACIDOPHILUS (FLORANEX) TAB PO SCH ×4 (08:25→20:54)
[2018-02-25] MEDS: POTASSIUM CHLORIDE 20 MEQ TABCR PO SCH (08:26)
[2018-02-25] MEDS: CHOLECALCIFEROL 1000 INTER.UNIT TAB PO SCH (08:26)
[2018-02-25] MEDS: ATORVASTATIN 10 MG TAB PO SCH (08:26)
[2018-02-25] MEDS: PANTOprazole SOD 40 MG TAB PO SCH (08:26)
[2018-02-25] MEDS: NYSTATIN SUSP 500,000 U/5 ML UDC PO SCH ×4 (08:26→20:53)
[2018-02-25] MEDS: DEXAMETHASONE 4 MG TAB PO SCH ×2 (08:26→20:56)
--- NOTE | 2018-02-25 09:35 | DIAGNOSTIC IMAGING REPORT ---
PARACENTESIS ABDOMEN W/IMAGING CLINICAL HISTORY: 48 years-old Male presenting with malignant ascites. COMPARISON: 02/23/2018. PROCEDURE: The procedure and its risks, benefits and alternatives were discussed with the patient, and written informed consent was obtained. A timeout was performed to confirm patient identity. Limited ultrasound of the abdomen was performed to determine a safe needle entry site. The right lower quadrant was prepped and draped in the usual aseptic fashion. 1% Lidocaine was used for local anesthesia. A paracentesis needle-sheath was inserted into the peritoneal space using ultrasound guidance. The needle was removed and the sheath was connected to tubing and a vacuum suction device. A total of 5.5 L of right lower ascites was aspirated. The sheath was removed, and a dressing applied. The patient tolerated the procedure well. No immediate complications. IMPRESSION: Ultrasound-guided therapeutic paracentesis with aspiration of 5.5 L of ascites. Electronically signed by: Newton Duncan M.D. 02/25/2018 9:34 AM Dictated Date/Time: 02/25/2018 9:33 AM
[2018-02-25] MEDS: ALBUMIN HUMAN 25% 12.5 GM/50 ML VIAL IV SCH ×4 (10:55→14:36)
[2018-02-25] MEDS: LORAZEPAM 0.5 MG TAB PO PRN ×2 (10:59→17:22)
[2018-02-25 11:35] VITALS: BP 125/85; PULSE 96; TEMP 36.5; O2SAT 99
--- NOTE | 2018-02-25 12:32 | Surgery Progress Note ---
Surgery Progress Note Date of Service Feb 25, 2018. 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 had paracentesis wed and wednesday with 5.5 Liters each day. Objective Vital Signs: Date Time Temp Pulse Resp B/P (MAP) Pulse Ox O2 Delivery O2 Flow Rate FiO2 02/25/18 11:35 36.5 96 18 125/85 (98) 99 Room Air 02/25/18 08:00 Room Air 02/25/18 07:10 34.6 101 22 147/116 (126) 96 Room Air 02/25/18 01:17 Room Air 02/24/18 23:52 37.0 101 16 108/78 (88) 97 Room Air 02/24/18 20:05 36.1 101 20 116/77 (90) 99 Room Air 02/24/18 16:00 97 Room Air 02/24/18 14:55 36.4 106 18 118/83 (95) 97 Room Air General Appearance: WD/WN, + mild distress Abdomen: normal bowel sounds, soft, no organomegaly, no pulsatile mass, + distended, + hernia Laboratory Results: Results Past 24 Hours Test 02/25/18 05:30 Range/Units White Blood Count 2.23 4.8-10.8 K/uL Red Blood Count 3.39 4.7-6.1 M/uL Hemoglobin 10.3 14.0-18.0 g/dL Hematocrit 30.5 42-52 % Mean Corpuscular Volume 90.0 80-100 fL Mean Corpuscular Hemoglobin 30.4 25-34 pg Mean Corpuscular Hemoglobin Concent 33.8 32-36 g/dl RDW Standard Deviation 54.8 36.4-46.3 fL RDW Coefficient of Variation 16.8 11.5-14.5 % Platelet Count 117 130-400 K/uL Mean Platelet Volume 9.2 7.4-10.4 fL Sodium Level 135 136-145 mmol/L Potassium Level 4.4 3.5-5.1 mmol/L Chloride Level 103 98-107 mmol/L Carbon Dioxide Level 27 21-32 mmol/L Anion Gap 5.0 3-11 mmol/L Blood Urea Nitrogen 31 7-18 mg/dl Creatinine 1.01 0.60-1.40 mg/dl Est Creatinine Clear Calc Drug Dose 111.9 ml/min Estimated GFR () 102.2 Estimated GFR (Non- 88.2 BUN/Creatinine Ratio 30.7 10-20 Random Glucose 115 70-99 mg/dl Calcium Level 6.9 8.5-10.1 mg/dl Albumin 2.3 3.4-5.0 gm/dl Assessment & Plan 48-year-old male with malignant ascites, and recently diagnosed C. difficile infection, on chemotherapy. Plan for abdominal pleurx catheter placement on Wednesday, Feb in OR risks reviewed to include but not limited to bleeding, infection, damage to surrounding structures, catheter infection or malfunction, need for future or more extensive surgery, and the risks of anesthesia Make NPO on Wednesday night, hold a/c From surgery standpoint, patient may be discharged but sounds like he will stay until after procedure.
[2018-02-25 14:58] VITALS: BP 116/80; PULSE 103; TEMP 36.4; O2SAT 98
--- NOTE | 2018-02-25 15:04 | Hospitalist Progress Note ---
Hospitalist Progress Note Date of Service Feb 25, 2018. (Nohemi Nash .MACKENZIE) Subjective Pt evaluation today including: conversation w/ patient, conversation w/ family , physical exam, chart review, lab review, review of studies, review of inpatient medication list Voiding: no voiding problems Mr. Juárez continues to express his fear and concerns over his future and diagnosis. He is back from another paracentesis today where 5.5 liters were taken off which he tolerated well. ROS Constitutional: no chills, aches, sweats or fever Respiratory: no sob,cough, sputum, or wheezing Cardiac: no chest pain, palpitations, edema, orthopnea or lightheadedness GI: no abdominal pain, nausea, vomiting, diarrhea or constipation : no dysuria or hesitancy Extremities: no joint pain or weakness Skin: no rash All other systems reviewed and negative (Nohemi Nash CRNP) Medications Medications Administered Medications (Trade) Dose Ordered Sig/Suraj Route Start Time Stop Time Status Last Admin Dose Admin Sodium Chloride 500 ml @ 999 mls/hr Q31M STAT IV 02/15/18 10:05 02/15/18 10:35 DC 02/15/18 10:23 999 MLS/HR Ondansetron HCl (Zofran Inj) 4 mg Q6H PRN IV 02/15/18 10:30 03/17/18 10:29 02/22/18 08:38 4 MG Magnesium Sulfate 100 ml @ 100 mls/hr Q1H IV 02/15/18 11:30 02/15/18 13:37 DC 02/15/18 15:52 100 MLS/HR Atorvastatin Calcium (Lipitor Tab) 10 mg DAILY PO 02/16/18 08:00 03/18/18 08:59 02/25/18 08:26 10 MG Calcium Carbonate (oS-Oli 500 TAB) 1,250 mg Q2HWA PO 02/15/18 12:00 02/23/18 18:38 DC 02/23/18 15:00 1,250 MG Cholecalciferol (Vitamin D Tab) 2,000 inter.unit QAM PO 02/16/18 08:00 02/23/18 18:40 DC 02/23/18 08:23 2,000 INTER.UNIT Clopidogrel Bisulfate (plAVix TAB) 75 mg DAILY PO 02/16/18 08:00 02/23/18 13:53 DC 02/21/18 08:53 75 MG Dexamethasone (Decadron Tab) 4 mg QAM PO 02/16/18 08:00 02/16/18 18:14 DC 02/16/18 08:07 4 MG Enoxaparin Sodium (Lovenox Inj) 40 mg Q24H SQ 02/15/18 14:00 02/22/18 15:43 DC 02/21/18 14:00 40 MG Loperamide HCl (Imodium Cap) 2 mg QID PO 02/15/18 12:14 02/22/18 16:40 DC 02/22/18 12:00 2 MG Loratadine (Claritin Tab) 10 mg DAILY PO 02/16/18 08:00 03/18/18 08:59 02/25/18 08:25 10 MG Lorazepam (Ativan Tab) 0.5 mg Q4 PRN PO 02/15/18 11:15 03/17/18 11:14 02/25/18 10:59 0.5 MG Magnesium Oxide (Mag-Ox Tab) 600 mg BID PO 02/15/18 20:00 03/17/18 20:59 02/23/18 08:22 600 MG Metoclopramide HCl (Reglan Tab) 10 mg ACHS PO 02/15/18 16:30 03/17/18 16:29 02/25/18 11:00 10 MG Mirtazapine (Remeron Solutab) 15 mg HS PO 02/15/18 21:00 02/16/18 18:14 DC 02/15/18 20:54 15 MG Montelukast Sodium (Singulair Tab) 10 mg DAILY PO 02/16/18 08:00 03/18/18 08:59 02/25/18 08:25 10 MG Pantoprazole Sodium (Protonix Tab) 40 mg DAILY PO 02/16/18 08:00 03/18/18 08:59 02/25/18 08:26 40 MG Potassium Chloride (Klor-Con Tab) 40 meq QAM PO 02/16/18 08:00 03/18/18 08:59 02/25/18 08:26 40 MEQ Enteral Nutritional Formula (Boost Breeze Nutritional Drink) 1 box BID PO 02/15/18 20:00 03/17/18 20:59 02/24/18 08:24 1 BOX Sodium Chloride 1,000 ml @ 100 mls/hr Q10H IV 02/15/18 11:15 02/16/18 07:14 DC 02/15/18 21:15 100 MLS/HR Lorazepam (Ativan Inj) 0.5 mg NOW STAT IV 02/15/18 11:38 02/15/18 11:56 DC 02/15/18 12:41 0.5 MG Heparin Sodium (Porcine) (Heparin 10 Unit/ ml 5 ml Flush) 5 ml PRN PRN FLUSH 02/15/18 14:15 03/17/18 14:14 02/24/18 22:28 5 ML Lorazepam (Ativan Inj) 0.5 mg HS PRN IV 02/15/18 16:30 03/17/18 16:29 02/21/18 20:48 0.5 MG Lorazepam 0.5 mg/ Syringe 1 ml @ 1 mls/min HS PRN IV 02/15/18 21:00 03/17/18 20:59 02/24/18 22:20 1 MLS/MIN Magnesium Sulfate 100 ml @ 100 mls/hr TODAY@0915 ONCE IV 02/16/18 09:15 02/16/18 10:14 DC 02/16/18 10:24 100 MLS/HR Albumin Human (Albumin 25%) 12.5 gm TODAY@1230,1300 IV 02/16/18 12:30 02/16/18 13:01 DC 02/16/18 12:46 12.5 GM Albumin Human (Albumin 25%) 12.5 gm TODAY@1400,1430 IV 02/16/18 14:00 02/16/18 18:00 DC 02/16/18 17:43 12.5 GM Mirtazapine (Remeron Solutab) 30 mg HS PO 02/16/18 21:00 02/22/18 16:40 DC 02/21/18 20:28 30 MG Dexamethasone (Decadron Tab) 6 mg QAM PO 02/17/18 08:00 03/19/18 07:59 02/25/18 08:26 6 MG Dexamethasone (Decadron Tab) 2 mg QPM PO 02/16/18 21:00 03/18/18 20:59 02/24/18 22:22 2 MG Magnesium Sulfate 100 ml @ 100 mls/hr NOW ONCE IV 02/17/18 08:45 02/17/18 09:44 DC 02/17/18 09:20 100 MLS/HR Irinotecan HCl 400 mg/Irinotecan HCl 40 mg/Dextrose 572 ml @ 380 mls/hr TODAY@1300 IV 02/17/18 13:00 02/17/18 23:59 DC 02/17/18 15:48 380 MLS/HR Leucovorin Calcium 984 mg/ Dextrose 149.2 ml @ 100 mls/hr TODAY@1300 IV 02/17/18 13:00 02/17/18 23:59 DC 02/17/18 15:48 100 MLS/HR Fluorouracil 2950 mg/Sodium Chloride 1,059 ml @ 46 mls/hr Q23H IV 02/17/18 15:00 02/19/18 12:59 DC 02/18/18 14:15 46 MLS/HR Fluorouracil 980 mg/Syringe 19.6 ml @ 5 mls/min TODAY@1445 IV 02/17/18 14:45 02/17/18 23:59 DC 02/17/18 17:45 5 MLS/MIN Dexamethasone Sodium Phosphate 10 mg/Sodium Chloride 27.5 ml @ 82.5 mls/hr TODAY@1200 IV 02/17/18 12:00 02/17/18 23:59 DC 02/17/18 14:01 82.5 MLS/HR Palonosetron 0.25 mg/Syringe 5 ml @ 10 mls/min TODAY@1200 IV 02/17/18 12:00 02/17/18 23:59 DC 02/17/18 14:01 10 MLS/MIN Albumin Human (Albumin 25%) 12.5 gm TODAY@1115,1130 IV 02/17/18 11:15 02/17/18 11:31 IN 02/17/18 12:54 12.5 GM Fosaprepitant 150 mg/Sodium Chloride 150 ml @ 300 mls/hr TODAY@1400 IV 02/17/18 14:00 02/17/18 23:59 DC 02/17/18 14:01 300 MLS/HR Magnesium Sulfate 100 ml @ 100 mls/hr TODAY@0915 ONCE IV 02/18/18 09:15 02/18/18 10:14 DC 02/18/18 11:58 100 MLS/HR Albumin Human (Albumin 25%) 12.5 gm DAILY@0900,1000 IV 02/18/18 09:00 02/21/18 08:59 DC 02/20/18 10:23 12.5 GM Albumin Human (Albumin 25%) 12.5 gm Q1H IV 02/18/18 18:30 02/18/18 20:29 DC 02/18/18 20:40 12.5 GM Albumin Human (Albumin 25%) 12.5 gm Q1H IV 02/18/18 21:00 02/18/18 22:59 DC 02/19/18 00:38 12.5 GM Albumin Human (Albumin 25%) 12.5 gm Q1H IV 02/18/18 23:30 02/19/18 01:29 DC 02/19/18 02:32 12.5 GM Magnesium Sulfate 100 ml @ 100 mls/hr NOW ONCE IV 02/20/18 08:30 02/20/18 09:29 DC 02/20/18 09:18 100 MLS/HR Albumin Human (Albumin 25%) 12.5 gm Q1H IV 02/20/18 14:15 02/20/18 17:16 DC 02/20/18 17:19 12.5 GM Mirtazapine (Remeron Solutab) 45 mg HS PO 02/22/18 21:00 03/17/18 20:59 02/24/18 22:21 45 MG Vancomycin HCl (Vancomycin Oral Soln) 250 mg Q6 PO 02/22/18 18:00 03/04/18 17:59 02/25/18 11:54 250 MG Raspberry (Raspberry Syrup 5ml Cup) 5 ml Q6H PO 02/22/18 18:00 03/04/18 17:59 02/25/18 11:50 5 ML Lactobacillus Acidophilus (Floranex Tab) 4 tab QIDM PO 02/22/18 20:00 03/24/18 19:59 02/25/18 11:50 4 TAB Nystatin (Mycostatin Susp) 5 ml QID PO 02/22/18 20:00 03/04/18 19:59 02/25/18 11:50 5 ML Clopidogrel Bisulfate (plAVix TAB) 75 mg DAILY PO 02/23/18 14:00 03/25/18 13:59 02/25/18 08:25 75 MG Albumin Human (Albumin 25%) 12.5 gm 1630,1645,1700,1715 IV 02/23/18 16:30 02/23/18 17:16 DC 02/23/18 18:48 12.5 GM Calcium Carbonate (Tums Chew Tab) 1,500 mg Q2HWA PO 02/23/18 20:00 03/25/18 19:59 02/25/18 13:40 1,500 MG Cholecalciferol (Vitamin D Tab) 4,000 inter.unit QAM PO 02/24/18 08:00 03/18/18 08:59 02/25/18 08:26 4,000 INTER.UNIT Albumin Human (Albumin 25%) 12.5 gm 1015,1016,1017,1018 IV 02/25/18 10:15 02/25/18 19:00 02/25/18 14:36 12.5 GM (Nohemi Nash CRNP) Objective Vital Signs Date Time Temp Pulse Resp B/P (MAP) Pulse Ox O2 Delivery O2 Flow Rate FiO2 02/25/18 11:35 36.5 96 18 125/85 (98) 99 Room Air 02/25/18 08:00 Room Air 02/25/18 07:10 34.6 101 22 147/116 (126) 96 Room Air 02/25/18 01:17 Room Air 02/24/18 23:52 37.0 101 16 108/78 (88) 97 Room Air 02/24/18 20:05 36.1 101 20 116/77 (90) 99 Room Air 02/24/18 16:00 97 Room Air (Nohemi Nash CRNP) Physical Exam Notes: General: no distress Eyes: normal inspection, PERLL Respiratory: chest non tender, clear to auscultation, normal breath sounds, no respiratory distress, no accessory muscle use Cardiac: regular rate and rhythm, no rub or gallop, no murmur, no edema, no jvd GI/: active bowel sounds, no abd pain or tenderness, soft, distended Extremities: normal range of motion, normal strength, non tender Neuro/Psych: alert and oriented x 3, normal mood and affect Skin: normal color, dry (Nohemi Nash CRNP) Laboratory Results Last 24 Hours Test 02/25/18 05:30 White Blood Count 2.23 K/uL Red Blood Count 3.39 M/uL Hemoglobin 10.3 g/dL Hematocrit 30.5 % Mean Corpuscular Volume 90.0 fL Mean Corpuscular Hemoglobin 30.4 pg Mean Corpuscular Hemoglobin Concent 33.8 g/dl RDW Standard Deviation 54.8 fL RDW Coefficient of Variation 16.8 % Platelet Count 117 K/uL Mean Platelet Volume 9.2 fL Sodium Level 135 mmol/L Potassium Level 4.4 mmol/L Chloride Level 103 mmol/L Carbon Dioxide Level 27 mmol/L Anion Gap 5.0 mmol/L Blood Urea Nitrogen 31 mg/dl Creatinine 1.01 mg/dl Est Creatinine Clear Calc Drug Dose 111.9 ml/min Estimated GFR () 102.2 Estimated GFR (Non- 88.2 BUN/Creatinine Ratio 30.7 Random Glucose 115 mg/dl Calcium Level 6.9 mg/dl Albumin 2.3 gm/dl (Nohemi Nash ., X RAY TECHNICIAN) Assessment and Plan 48 y/o male here for 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 Dehydration, weakness, protein malnutrition--stable -Creatinine remains stable, at baseline following IVF - Continue Remeron 45 mg PO hs, Decadron 6 mg PO qam and 2 mg PO qpm -Nutrition consulted. Continue Boost BID, snacks TID Ascites- -Ultrasound guided paracentesis performed 02/16, 4.6L fluid removed, 02/18 >9 K fluid removed, 02/20 4L removed, 02/23 5.4L removed, 02/25 5.5 L removed Albumin IV given after paracentesis -Albumin 2.3 today - Pleurx catheter unable to be placed as patient is positive for C diff. Given how frequently the patient is requiring paracentesis I don't think he can be discharged for the weekend. Will plan for inpatient Pleurx catheter placement Wednesday per surgery. 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 Discussed with Nohemi Nash FOOD CLERK and agree with findings and plan as documented in the note. Any exceptions or clarifications are listed here: None Patient's multiple concerns were reaccumulation of paracentesis fluid will continue to watch him over the weekend with plans for abdominal peritoneal catheter placed next week Documented By: Conrado Shepherd (Conrado Shepherd M.D.)
[2018-02-25 16:00] VITALS: O2SAT 98
[2018-02-25 20:06] VITALS: BP 115/76; PULSE 98; TEMP 36.9; O2SAT 95
[2018-02-25] MEDS: MIRTAZAPINE SOLTAB 15 MG PO SCH (20:58)
[2018-02-25] MEDS: LORAZEPAM INJ 0.5 MG in SYRINGE 0.75 ML IV PRN (21:23)
[2018-02-26] VITALS (7 sets, daily range): BP systolic 116–132; BP diastolic 77–97; PULSE 76–112; TEMP 36–36.9; O2SAT 96–99; BMI 29.3
[2018-02-26] MEDS: RASPBERRY SYRUP 5 ML UDP PO SCH ×4 (00:40→18:12)
[2018-02-26] MEDS: VANCOMYCIN HCL 250 MG/5 ML SOLN PO SCH ×4 (00:40→18:12)
[2018-02-26] MEDS: CALCIUM CARBONATE 500 MG CHEWABLE PO SCH ×10 (00:41→22:00)
[2018-02-26 05:56] LABS: HEMATOCRIT 28.7 % (42-52); HEMOGLOBIN 9.6 g/dL (14.0-18.0); MEAN CELL VOLUME 89.4 fL (80-100); MEAN CORPUSCULAR HEMOGLOBIN 29.9 pg (25-34); MEAN CORPUSCULAR HGB CONC 33.4 g/dl (32-36); NUCLEATED RED BLOOD CELL ABS 0.04 K/uL (0-0); RED CELL DISTRIBUTION WIDTH CV 16.7 % (11.5-14.5); RED CELL DISTRIBUTION WIDTH SD 53.9 fL (36.4-46.3); WHITE BLOOD COUNT 2.19 K/uL (4.8-10.8)
[2018-02-26] MEDS: METOCLOPRAMIDE HCL 10 MG TAB PO SCH ×4 (05:58→21:00)
[2018-02-26 06:25] LABS: ALBUMIN 2.4 gm/dl (3.4-5.0); CALCIUM 6.7 mg/dl (8.5-10.1); POTASSIUM 3.9 mmol/L (3.5-5.1)
[2018-02-26 06:47] LABS: MEAN PLATELET VOLUME 9.4 fL (7.4-10.4); PLATELET COUNT 98 K/uL (130-400)
[2018-02-26] MEDS: MAGNESIUM OXIDE 400 MG TAB PO SCH ×2 (08:00→20:58)
[2018-02-26] MEDS: BOOST BREEZE NUTRITION DRINK 1 BOX PO SCH ×2 (08:00→21:09)
[2018-02-26] MEDS: MONTELUKAST SOD 10 MG TAB PO SCH (08:18)
[2018-02-26] MEDS: PANTOprazole SOD 40 MG TAB PO SCH (08:18)
[2018-02-26] MEDS: NYSTATIN SUSP 500,000 U/5 ML UDC PO SCH ×4 (08:18→20:55)
[2018-02-26] MEDS: DEXAMETHASONE 4 MG TAB PO SCH ×2 (08:19→20:57)
[2018-02-26] MEDS: LACTOBACILLUS ACIDOPHILUS (FLORANEX) TAB PO SCH ×4 (08:19→20:55)
[2018-02-26] MEDS: POTASSIUM CHLORIDE 20 MEQ TABCR PO SCH (08:19)
[2018-02-26] MEDS: CLOPIDOGREL BISULFATE 75 MG TAB PO SCH (08:19)
[2018-02-26] MEDS: LORATADINE 10 MG TAB PO SCH (08:19)
[2018-02-26] MEDS: ATORVASTATIN 10 MG TAB PO SCH (08:19)
[2018-02-26] MEDS: CHOLECALCIFEROL 1000 INTER.UNIT TAB PO SCH (08:20)
--- NOTE | 2018-02-26 10:11 | Hospitalist Progress Note ---
Hospitalist Progress Note Date of Service Feb 26, 2018. (Nohemi Nash CRNP) Subjective Pt evaluation today including: conversation w/ patient, physical exam, chart review, lab review, review of inpatient medication list Voiding: no voiding problems Mr. Juárez is sitting up at bedside, no complaints this morning. ROS Constitutional: no chills, aches, sweats or fever Respiratory: no sob,cough, sputum, or wheezing Cardiac: no chest pain, palpitations, edema, orthopnea or lightheadedness GI: no abdominal pain, nausea, vomiting, diarrhea or constipation : no dysuria or hesitancy Extremities: no joint pain or weakness Skin: no rash All other systems reviewed and negative (Nohemi Nash CRNP) Medications Medications Administered Medications (Trade) Dose Ordered Sig/Suraj Route Start Time Stop Time Status Last Admin Dose Admin Sodium Chloride 500 ml @ 999 mls/hr Q31M STAT IV 02/15/18 10:05 02/15/18 10:35 DC 02/15/18 10:23 999 MLS/HR Ondansetron HCl (Zofran Inj) 4 mg Q6H PRN IV 02/15/18 10:30 03/17/18 10:29 02/22/18 08:38 4 MG Magnesium Sulfate 100 ml @ 100 mls/hr Q1H IV 02/15/18 11:30 02/15/18 13:37 DC 02/15/18 15:52 100 MLS/HR Atorvastatin Calcium (Lipitor Tab) 10 mg DAILY PO 02/16/18 08:00 03/18/18 08:59 02/26/18 08:19 10 MG Calcium Carbonate (oS-Oli 500 TAB) 1,250 mg Q2HWA PO 02/15/18 12:00 02/23/18 18:38 DC 02/23/18 15:00 1,250 MG Cholecalciferol (Vitamin D Tab) 2,000 inter.unit QAM PO 02/16/18 08:00 02/23/18 18:40 DC 02/23/18 08:23 2,000 INTER.UNIT Clopidogrel Bisulfate (plAVix TAB) 75 mg DAILY PO 02/16/18 08:00 02/23/18 13:53 DC 02/21/18 08:53 75 MG Dexamethasone (Decadron Tab) 4 mg QAM PO 02/16/18 08:00 02/16/18 18:14 DC 02/16/18 08:07 4 MG Enoxaparin Sodium (Lovenox Inj) 40 mg Q24H SQ 02/15/18 14:00 02/22/18 15:43 DC 02/21/18 14:00 40 MG Loperamide HCl (Imodium Cap) 2 mg QID PO 02/15/18 12:14 02/22/18 16:40 DC 02/22/18 12:00 2 MG Loratadine (Claritin Tab) 10 mg DAILY PO 02/16/18 08:00 03/18/18 08:59 02/26/18 08:19 10 MG Lorazepam (Ativan Tab) 0.5 mg Q4 PRN PO 02/15/18 11:15 03/17/18 11:14 02/25/18 17:22 0.5 MG Magnesium Oxide (Mag-Ox Tab) 600 mg BID PO 02/15/18 20:00 03/17/18 20:59 02/23/18 08:22 600 MG Metoclopramide HCl (Reglan Tab) 10 mg ACHS PO 02/15/18 16:30 03/17/18 16:29 02/26/18 05:58 10 MG Mirtazapine (Remeron Solutab) 15 mg HS PO 02/15/18 21:00 02/16/18 18:14 DC 02/15/18 20:54 15 MG Montelukast Sodium (Singulair Tab) 10 mg DAILY PO 02/16/18 08:00 03/18/18 08:59 02/26/18 08:18 10 MG Pantoprazole Sodium (Protonix Tab) 40 mg DAILY PO 02/16/18 08:00 03/18/18 08:59 02/26/18 08:18 40 MG Potassium Chloride (Klor-Con Tab) 40 meq QAM PO 02/16/18 08:00 03/18/18 08:59 02/26/18 08:19 40 MEQ Enteral Nutritional Formula (Boost Breeze Nutritional Drink) 1 box BID PO 02/15/18 20:00 03/17/18 20:59 02/24/18 08:24 1 BOX Sodium Chloride 1,000 ml @ 100 mls/hr Q10H IV 02/15/18 11:15 02/16/18 07:14 DC 02/15/18 21:15 100 MLS/HR Lorazepam (Ativan Inj) 0.5 mg NOW STAT IV 02/15/18 11:38 02/15/18 11:56 DC 02/15/18 12:41 0.5 MG Heparin Sodium (Porcine) (Heparin 10 Unit/ ml 5 ml Flush) 5 ml PRN PRN FLUSH 02/15/18 14:15 03/17/18 14:14 02/26/18 05:36 10 ML Lorazepam (Ativan Inj) 0.5 mg HS PRN IV 02/15/18 16:30 03/17/18 16:29 02/21/18 20:48 0.5 MG Lorazepam 0.5 mg/ Syringe 1 ml @ 1 mls/min HS PRN IV 02/15/18 21:00 03/17/18 20:59 02/25/18 21:23 1 MLS/MIN Magnesium Sulfate 100 ml @ 100 mls/hr TODAY@0915 ONCE IV 02/16/18 09:15 02/16/18 10:14 DC 02/16/18 10:24 100 MLS/HR Albumin Human (Albumin 25%) 12.5 gm TODAY@1230,1300 IV 02/16/18 12:30 02/16/18 13:01 DC 02/16/18 12:46 12.5 GM Albumin Human (Albumin 25%) 12.5 gm TODAY@1400,1430 IV 02/16/18 14:00 02/16/18 18:00 DC 02/16/18 17:43 12.5 GM Mirtazapine (Remeron Solutab) 30 mg HS PO 02/16/18 21:00 02/22/18 16:40 DC 02/21/18 20:28 30 MG Dexamethasone (Decadron Tab) 6 mg QAM PO 02/17/18 08:00 03/19/18 07:59 02/26/18 08:19 6 MG Dexamethasone (Decadron Tab) 2 mg QPM PO 02/16/18 21:00 03/18/18 20:59 02/25/18 20:56 2 MG Magnesium Sulfate 100 ml @ 100 mls/hr NOW ONCE IV 02/17/18 08:45 02/17/18 09:44 DC 02/17/18 09:20 100 MLS/HR Irinotecan HCl 400 mg/Irinotecan HCl 40 mg/Dextrose 572 ml @ 380 mls/hr TODAY@1300 IV 02/17/18 13:00 02/17/18 23:59 DC 02/17/18 15:48 380 MLS/HR Leucovorin Calcium 984 mg/ Dextrose 149.2 ml @ 100 mls/hr TODAY@1300 IV 02/17/18 13:00 02/17/18 23:59 DC 02/17/18 15:48 100 MLS/HR Fluorouracil 2950 mg/Sodium Chloride 1,059 ml @ 46 mls/hr Q23H IV 02/17/18 15:00 02/19/18 12:59 DC 02/18/18 14:15 46 MLS/HR Fluorouracil 980 mg/Syringe 19.6 ml @ 5 mls/min TODAY@1445 IV 02/17/18 14:45 02/17/18 23:59 DC 02/17/18 17:45 5 MLS/MIN Dexamethasone Sodium Phosphate 10 mg/Sodium Chloride 27.5 ml @ 82.5 mls/hr TODAY@1200 IV 02/17/18 12:00 02/17/18 23:59 DC 02/17/18 14:01 82.5 MLS/HR Palonosetron 0.25 mg/Syringe 5 ml @ 10 mls/min TODAY@1200 IV 02/17/18 12:00 02/17/18 23:59 DC 02/17/18 14:01 10 MLS/MIN Albumin Human (Albumin 25%) 12.5 gm TODAY@1115,1130 IV 02/17/18 11:15 02/17/18 11:31 DC 02/17/18 12:54 12.5 GM Fosaprepitant 150 mg/Sodium Chloride 150 ml @ 300 mls/hr TODAY@1400 IV 02/17/18 14:00 02/17/18 23:59 DC 02/17/18 14:01 300 MLS/HR Magnesium Sulfate 100 ml @ 100 mls/hr TODAY@0915 ONCE IV 02/18/18 09:15 02/18/18 10:14 DC 02/18/18 11:58 100 MLS/HR Albumin Human (Albumin 25%) 12.5 gm DAILY@0900,1000 IV 02/18/18 09:00 02/21/18 08:59 DC 02/20/18 10:23 12.5 GM Albumin Human (Albumin 25%) 12.5 gm Q1H IV 02/18/18 18:30 02/18/18 20:29 DC 02/18/18 20:40 12.5 GM Albumin Human (Albumin 25%) 12.5 gm Q1H IV 02/18/18 21:00 02/18/18 22:59 DC 02/19/18 00:38 12.5 GM Albumin Human (Albumin 25%) 12.5 gm Q1H IV 02/18/18 23:30 02/19/18 01:29 DC 02/19/18 02:32 12.5 GM Magnesium Sulfate 100 ml @ 100 mls/hr NOW ONCE IV 02/20/18 08:30 02/20/18 09:29 DC 02/20/18 09:18 100 MLS/HR Albumin Human (Albumin 25%) 12.5 gm Q1H IV 02/20/18 14:15 02/20/18 17:16 DC 02/20/18 17:19 12.5 GM Mirtazapine (Remeron Solutab) 45 mg HS PO 02/22/18 21:00 03/17/18 20:59 02/25/18 20:58 45 MG Vancomycin HCl (Vancomycin Oral Soln) 250 mg Q6 PO 02/22/18 18:00 03/04/18 17:59 02/26/18 05:58 250 MG Raspberry (Raspberry Syrup 5ml Cup) 5 ml Q6H PO 02/22/18 18:00 03/04/18 17:59 02/26/18 05:58 5 ML Lactobacillus Acidophilus (Floranex Tab) 4 tab QIDM PO 02/22/18 20:00 03/24/18 19:59 02/26/18 08:19 4 TAB Nystatin (Mycostatin Susp) 5 ml QID PO 02/22/18 20:00 03/04/18 19:59 02/26/18 08:18 5 ML Clopidogrel Bisulfate (plAVix TAB) 75 mg DAILY PO 02/23/18 14:00 03/25/18 13:59 02/26/18 08:19 75 MG Albumin Human (Albumin 25%) 12.5 gm 1630,1645,1700,1715 IV 02/23/18 16:30 02/23/18 17:16 DC 02/23/18 18:48 12.5 GM Calcium Carbonate (Tums Chew Tab) 1,500 mg Q2HWA PO 02/23/18 20:00 03/25/18 19:59 02/26/18 08:18 1,500 MG Cholecalciferol (Vitamin D Tab) 4,000 inter.unit QAM PO 02/24/18 08:00 03/18/18 08:59 02/26/18 08:20 4,000 INTER.UNIT Albumin Human (Albumin 25%) 12.5 gm 1015,1016,1017,1018 IV 02/25/18 10:15 02/25/18 19:00 DC 02/25/18 14:36 12.5 GM (Nohemi Nash CRNP) Objective Vital Signs Date Time Temp Pulse Resp B/P (MAP) Pulse Ox O2 Delivery O2 Flow Rate FiO2 02/26/18 08:27 109 16 130/86 (101) 99 Room Air 02/26/18 08:00 Room Air 02/26/18 00:22 36.9 93 16 116/77 (90) 96 Room Air 02/26/18 00:00 Room Air 02/25/18 20:06 36.9 98 16 115/76 (89) 95 Room Air 02/25/18 16:00 98 Room Air 02/25/18 14:58 36.4 103 18 116/80 (92) 98 Room Air 02/25/18 11:35 36.5 96 18 125/85 (98) 99 Room Air (Nohemi Nash CRNP) Physical Exam Notes: General: no distress Eyes: normal inspection, PERLL Respiratory: chest non tender, clear to auscultation, normal breath sounds, no respiratory distress, no accessory muscle use Cardiac: regular rate and rhythm, no rub or gallop, no murmur, no edema, no jvd GI/: active bowel sounds, no abd pain or tenderness, soft, distended Extremities: normal range of motion, normal strength, non tender Neuro/Psych: alert and oriented x 3, normal mood and affect Skin: normal color, dry (Nohemi Nash CRNP) Laboratory Results Last 24 Hours Test 02/26/18 05:39 White Blood Count 2.19 K/uL Red Blood Count 3.21 M/uL Hemoglobin 9.6 g/dL Hematocrit 28.7 % Mean Corpuscular Volume 89.4 fL Mean Corpuscular Hemoglobin 29.9 pg Mean Corpuscular Hemoglobin Concent 33.4 g/dl RDW Standard Deviation 53.9 fL RDW Coefficient of Variation 16.7 % Platelet Count 98 K/uL Mean Platelet Volume 9.4 fL Nucleated RBC Absolute Count (auto) 0.04 K/uL Nucleated Red Blood Cells % 1.8 % Platelet Estimate DECREASED Sodium Level 134 mmol/L Potassium Level 3.9 mmol/L Chloride Level 103 mmol/L Carbon Dioxide Level 26 mmol/L Anion Gap 5.0 mmol/L Blood Urea Nitrogen 32 mg/dl Creatinine 1.00 mg/dl Est Creatinine Clear Calc Drug Dose 111.7 ml/min Estimated GFR () 103.4 Estimated GFR (Non- 89.2 BUN/Creatinine Ratio 31.5 Random Glucose 165 mg/dl Calcium Level 6.7 mg/dl Albumin 2.4 gm/dl (Nohemi Nash ., MAGNETIC TAPE WINDER) Assessment and Plan 48 y/o male here for 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 Dehydration, weakness, protein malnutrition--stable -Creatinine remains stable - Continue Remeron 45 mg PO hs, Decadron 6 mg PO qam and 2 mg PO qpm -Nutrition consulted. Continue Boost BID, snacks TID Malignant Ascites- -Ultrasound guided paracentesis performed 02/16, 4.6L fluid removed, 02/18 >9 K fluid removed, 02/20 4L removed, 02/23 5.4L removed, 02/25 5.5 L removed Albumin IV given after paracentesis -Albumin 2.4 today - Pleurx catheter unable to be placed as patient is positive for C diff. Given how frequently the patient is requiring paracentesis I don't think he can be discharged for the weekend. Will plan for inpatient Pleurx catheter placement Wednesday per surgery. Discussed with ID and patient will only need a few days of Cdiff treatment before it is safe to perform surgery. Will likely need paracentesis Wednesday or Wednesday - continue to encourage protein intake and Boost supplement Anxiety, depression - continue mirtazepine, will add buspirone as patient is expressing to nursing that lorazepam is not helping to ease his anxiety, continue lorazepam prn Chronic hypocalcemia - Ca 6.7 today - 8.0 when corrected for albumin - patient was changed to chewable calcium from tabs as he felt the pills were uncomfortable to swallow but may need to switch back if his calcium drifts much lower - Vitamin D increased to 2000 IUs - repeat prp am C diff colitis - stool sample positive for C diff - continue vancomycin po 250 mg qid - diarrhea improving Hypomagnesemia--stable - resolved -Continue home mag oxide 600 mg PO BID Metastatic cancer, 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 Any exceptions or clarifications are listed here: None Patient with metastatic adenocarcinoma waiting catheter placement for ability to drain abdominal ascites at home and currently treating C. difficile Documented By: Conrado Shepherd (Conrado Shepherd M.D.)
[2018-02-26] MEDS: LORAZEPAM 0.5 MG TAB PO PRN ×2 (10:15→18:12)
[2018-02-26 17:04] LABS: HEMATOCRIT 30.6 % (42-52); HEMOGLOBIN 10.6 g/dL (14.0-18.0)
[2018-02-26] MEDS: LORAZEPAM INJ 0.5 MG in SYRINGE 0.75 ML IV PRN (20:55)
[2018-02-26] MEDS: MIRTAZAPINE SOLTAB 15 MG PO SCH (20:59)
[2018-02-27] MEDS: VANCOMYCIN HCL 250 MG/5 ML SOLN PO SCH ×5 (06:10→23:48)
[2018-02-27] MEDS: RASPBERRY SYRUP 5 ML UDP PO SCH ×5 (06:10→23:48)
[2018-02-27] MEDS: CALCIUM CARBONATE 500 MG CHEWABLE PO SCH ×9 (06:11→22:39)
[2018-02-27] MEDS: METOCLOPRAMIDE HCL 10 MG TAB PO SCH ×4 (06:13→20:52)
[2018-02-27 06:38] VITALS: BMI 30.0
[2018-02-27 06:39] VITALS: BP_SYST 121; BP_SYST 130; BP_DIAS 101; BP_DIAS 86; BP_DIAS 98; PULSE 89; TEMP 36.7; O2SAT 97
[2018-02-27 06:44] LABS: HEMATOCRIT 30.2 % (42-52); HEMOGLOBIN 10.1 g/dL (14.0-18.0); MEAN CELL VOLUME 89.1 fL (80-100); MEAN CORPUSCULAR HEMOGLOBIN 29.8 pg (25-34); MEAN CORPUSCULAR HGB CONC 33.4 g/dl (32-36); MEAN PLATELET VOLUME 9.5 fL (7.4-10.4); NUCLEATED RED BLOOD CELL ABS 0.14 K/uL (0-0); PLATELET COUNT 109 K/uL (130-400); RED CELL DISTRIBUTION WIDTH CV 16.8 % (11.5-14.5); RED CELL DISTRIBUTION WIDTH SD 52.9 fL (36.4-46.3); WHITE BLOOD COUNT 2.53 K/uL (4.8-10.8)
[2018-02-27 07:10] LABS: CALCIUM 7.1 mg/dl (8.5-10.1); CREATININE 1.04 mg/dl (0.60-1.40); POTASSIUM 4.1 mmol/L (3.5-5.1)
[2018-02-27] MEDS: MAGNESIUM OXIDE 400 MG TAB PO SCH ×2 (08:00→20:52)
[2018-02-27] MEDS: ATORVASTATIN 10 MG TAB PO SCH (08:25)
[2018-02-27] MEDS: PANTOprazole SOD 40 MG TAB PO SCH (08:25)
[2018-02-27] MEDS: BOOST BREEZE NUTRITION DRINK 1 BOX PO SCH ×2 (08:25→20:50)
[2018-02-27] MEDS: LORATADINE 10 MG TAB PO SCH (08:26)
[2018-02-27] MEDS: MONTELUKAST SOD 10 MG TAB PO SCH (08:26)
[2018-02-27] MEDS: LACTOBACILLUS ACIDOPHILUS (FLORANEX) TAB PO SCH ×4 (08:26→20:53)
[2018-02-27] MEDS: DEXAMETHASONE 4 MG TAB PO SCH ×2 (08:26→20:54)
[2018-02-27] MEDS: CLOPIDOGREL BISULFATE 75 MG TAB PO SCH (08:26)
[2018-02-27] MEDS: CHOLECALCIFEROL 1000 INTER.UNIT TAB PO SCH (08:26)
[2018-02-27] MEDS: NYSTATIN SUSP 500,000 U/5 ML UDC PO SCH ×4 (08:27→20:52)
[2018-02-27] MEDS: POTASSIUM CHLORIDE 20 MEQ TABCR PO SCH (08:27)
[2018-02-27 09:16] LABS: INR 1.3 (0.9-1.1); PTT PATIENT 24.6 SECONDS (21.0-31.0)
[2018-02-27] MEDS: LORAZEPAM 0.5 MG TAB PO PRN ×2 (10:15→17:49)
--- NOTE | 2018-02-27 10:40 | Hospitalist Progress Note ---
Hospitalist Progress Note Date of Service Feb 27, 2018. (Nohemi Nash .MACKENZIE) Subjective Pt evaluation today including: conversation w/ patient, physical exam, chart review, lab review, review of inpatient medication list Voiding: no voiding problems Mr. Juárez is feeling like his belly is feeling a bit more distended but otherwise feels at his baseline. He continues to be very depressed about his prognosis. ROS Constitutional: no chills, aches, sweats or fever Respiratory: no sob,cough, sputum, or wheezing Cardiac: no chest pain, palpitations, edema, orthopnea or lightheadedness GI: no abdominal pain, nausea, vomiting, diarrhea or constipation : no dysuria or hesitancy Extremities: no joint pain or weakness Skin: no rash All other systems reviewed and negative (Nohemi Nash CRNP) Medications Medications Administered Medications (Trade) Dose Ordered Sig/Suraj Route Start Time Stop Time Status Last Admin Dose Admin Sodium Chloride 500 ml @ 999 mls/hr Q31M STAT IV 02/15/18 10:05 02/15/18 10:35 DC 02/15/18 10:23 999 MLS/HR Ondansetron HCl (Zofran Inj) 4 mg Q6H PRN IV 02/15/18 10:30 03/17/18 10:29 02/22/18 08:38 4 MG Magnesium Sulfate 100 ml @ 100 mls/hr Q1H IV 02/15/18 11:30 02/15/18 13:37 DC 02/15/18 15:52 100 MLS/HR Atorvastatin Calcium (Lipitor Tab) 10 mg DAILY PO 02/16/18 08:00 03/18/18 08:59 02/27/18 08:25 10 MG Calcium Carbonate (oS-Oli 500 TAB) 1,250 mg Q2HWA PO 02/15/18 12:00 02/23/18 18:38 DC 02/23/18 15:00 1,250 MG Cholecalciferol (Vitamin D Tab) 2,000 inter.unit QAM PO 02/16/18 08:00 02/23/18 18:40 DC 02/23/18 08:23 2,000 INTER.UNIT Clopidogrel Bisulfate (plAVix TAB) 75 mg DAILY PO 02/16/18 08:00 02/23/18 13:53 DC 02/21/18 08:53 75 MG Dexamethasone (Decadron Tab) 4 mg QAM PO 02/16/18 08:00 02/16/18 18:14 DC 02/16/18 08:07 4 MG Enoxaparin Sodium (Lovenox Inj) 40 mg Q24H SQ 02/15/18 14:00 02/22/18 15:43 DC 02/21/18 14:00 40 MG Loperamide HCl (Imodium Cap) 2 mg QID PO 02/15/18 12:14 02/22/18 16:40 DC 02/22/18 12:00 2 MG Loratadine (Claritin Tab) 10 mg DAILY PO 02/16/18 08:00 03/18/18 08:59 02/27/18 08:26 10 MG Lorazepam (Ativan Tab) 0.5 mg Q4 PRN PO 02/15/18 11:15 03/17/18 11:14 02/27/18 10:15 0.5 MG Magnesium Oxide (Mag-Ox Tab) 600 mg BID PO 02/15/18 20:00 03/17/18 20:59 02/26/18 20:58 600 MG Metoclopramide HCl (Reglan Tab) 10 mg ACHS PO 02/15/18 16:30 03/17/18 16:29 02/27/18 10:13 10 MG Mirtazapine (Remeron Solutab) 15 mg HS PO 02/15/18 21:00 02/16/18 18:14 DC 02/15/18 20:54 15 MG Montelukast Sodium (Singulair Tab) 10 mg DAILY PO 02/16/18 08:00 03/18/18 08:59 02/27/18 08:26 10 MG Pantoprazole Sodium (Protonix Tab) 40 mg DAILY PO 02/16/18 08:00 03/18/18 08:59 02/27/18 08:25 40 MG Potassium Chloride (Klor-Con Tab) 40 meq QAM PO 02/16/18 08:00 03/18/18 08:59 02/27/18 08:27 40 MEQ Enteral Nutritional Formula (Boost Breeze Nutritional Drink) 1 box BID PO 02/15/18 20:00 03/17/18 20:59 02/27/18 08:25 1 BOX Sodium Chloride 1,000 ml @ 100 mls/hr Q10H IV 02/15/18 11:15 02/16/18 07:14 DC 02/15/18 21:15 100 MLS/HR Lorazepam (Ativan Inj) 0.5 mg NOW STAT IV 02/15/18 11:38 02/15/18 11:56 DC 02/15/18 12:41 0.5 MG Heparin Sodium (Porcine) (Heparin 10 Unit/ ml 5 ml Flush) 5 ml PRN PRN FLUSH 02/15/18 14:15 03/17/18 14:14 02/27/18 08:47 5 ML Lorazepam (Ativan Inj) 0.5 mg HS PRN IV 02/15/18 16:30 03/17/18 16:29 02/21/18 20:48 0.5 MG Lorazepam 0.5 mg/ Syringe 1 ml @ 1 mls/min HS PRN IV 02/15/18 21:00 03/17/18 20:59 02/26/18 20:55 1 MLS/MIN Magnesium Sulfate 100 ml @ 100 mls/hr TODAY@0915 ONCE IV 02/16/18 09:15 02/16/18 10:14 DC 02/16/18 10:24 100 MLS/HR Albumin Human (Albumin 25%) 12.5 gm TODAY@1230,1300 IV 02/16/18 12:30 02/16/18 13:01 DC 02/16/18 12:46 12.5 GM Albumin Human (Albumin 25%) 12.5 gm TODAY@1400,1430 IV 02/16/18 14:00 02/16/18 18:00 DC 02/16/18 17:43 12.5 GM Mirtazapine (Remeron Solutab) 30 mg HS PO 02/16/18 21:00 02/22/18 16:40 DC 02/21/18 20:28 30 MG Dexamethasone (Decadron Tab) 6 mg QAM PO 02/17/18 08:00 03/19/18 07:59 02/27/18 08:26 6 MG Dexamethasone (Decadron Tab) 2 mg QPM PO 02/16/18 21:00 03/18/18 20:59 02/26/18 20:57 2 MG Magnesium Sulfate 100 ml @ 100 mls/hr NOW ONCE IV 02/17/18 08:45 02/17/18 09:44 DC 02/17/18 09:20 100 MLS/HR Irinotecan HCl 400 mg/Irinotecan HCl 40 mg/Dextrose 572 ml @ 380 mls/hr TODAY@1300 IV 02/17/18 13:00 02/17/18 23:59 DC 02/17/18 15:48 380 MLS/HR Leucovorin Calcium 984 mg/ Dextrose 149.2 ml @ 100 mls/hr TODAY@1300 IV 02/17/18 13:00 02/17/18 23:59 DC 02/17/18 15:48 100 MLS/HR Fluorouracil 2950 mg/Sodium Chloride 1,059 ml @ 46 mls/hr Q23H IV 02/17/18 15:00 02/19/18 12:59 DC 02/18/18 14:15 46 MLS/HR Fluorouracil 980 mg/Syringe 19.6 ml @ 5 mls/min TODAY@1445 IV 02/17/18 14:45 02/17/18 23:59 DC 02/17/18 17:45 5 MLS/MIN Dexamethasone Sodium Phosphate 10 mg/Sodium Chloride 27.5 ml @ 82.5 mls/hr TODAY@1200 IV 02/17/18 12:00 02/17/18 23:59 DC 02/17/18 14:01 82.5 MLS/HR Palonosetron 0.25 mg/Syringe 5 ml @ 10 mls/min TODAY@1200 IV 02/17/18 12:00 02/17/18 23:59 DC 02/17/18 14:01 10 MLS/MIN Albumin Human (Albumin 25%) 12.5 gm TODAY@1115,1130 IV 02/17/18 11:15 02/17/18 11:31 DC 02/17/18 12:54 12.5 GM Fosaprepitant 150 mg/Sodium Chloride 150 ml @ 300 mls/hr TODAY@1400 IV 02/17/18 14:00 02/17/18 23:59 DC 02/17/18 14:01 300 MLS/HR Magnesium Sulfate 100 ml @ 100 mls/hr TODAY@0915 ONCE IV 02/18/18 09:15 02/18/18 10:14 DC 02/18/18 11:58 100 MLS/HR Albumin Human (Albumin 25%) 12.5 gm DAILY@0900,1000 IV 02/18/18 09:00 02/21/18 08:59 DC 02/20/18 10:23 12.5 GM Albumin Human (Albumin 25%) 12.5 gm Q1H IV 02/18/18 18:30 02/18/18 20:29 DC 02/18/18 20:40 12.5 GM Albumin Human (Albumin 25%) 12.5 gm Q1H IV 02/18/18 21:00 02/18/18 22:59 DC 02/19/18 00:38 12.5 GM Albumin Human (Albumin 25%) 12.5 gm Q1H IV 02/18/18 23:30 02/19/18 01:29 DC 02/19/18 02:32 12.5 GM Magnesium Sulfate 100 ml @ 100 mls/hr NOW ONCE IV 02/20/18 08:30 02/20/18 09:29 DC 02/20/18 09:18 100 MLS/HR Albumin Human (Albumin 25%) 12.5 gm Q1H IV 02/20/18 14:15 02/20/18 17:16 DC 02/20/18 17:19 12.5 GM Mirtazapine (Remeron Solutab) 45 mg HS PO 02/22/18 21:00 03/17/18 20:59 02/26/18 20:59 45 MG Vancomycin HCl (Vancomycin Oral Soln) 250 mg Q6 PO 02/22/18 18:00 03/04/18 17:59 02/27/18 06:10 250 MG Raspberry (Raspberry Syrup 5ml Cup) 5 ml Q6H PO 02/22/18 18:00 03/04/18 17:59 02/27/18 06:10 5 ML Lactobacillus Acidophilus (Floranex Tab) 4 tab QIDM PO 02/22/18 20:00 03/24/18 19:59 02/27/18 08:26 4 TAB Nystatin (Mycostatin Susp) 5 ml QID PO 02/22/18 20:00 03/04/18 19:59 02/27/18 08:27 5 ML Clopidogrel Bisulfate (plAVix TAB) 75 mg DAILY PO 02/23/18 14:00 03/25/18 13:59 02/27/18 08:26 75 MG Albumin Human (Albumin 25%) 12.5 gm 1630,1645,1700,1715 IV 02/23/18 16:30 02/23/18 17:16 DC 02/23/18 18:48 12.5 GM Calcium Carbonate (Tums Chew Tab) 1,500 mg Q2HWA PO 02/23/18 20:00 03/25/18 19:59 02/27/18 10:12 1,500 MG Cholecalciferol (Vitamin D Tab) 4,000 inter.unit QAM PO 02/24/18 08:00 03/18/18 08:59 02/27/18 08:26 4,000 INTER.UNIT Albumin Human (Albumin 25%) 12.5 gm 1015,1016,1017,1018 IV 02/25/18 10:15 02/25/18 19:00 DC 02/25/18 14:36 12.5 GM Buspirone HCl (Buspar Tab) 7.5 mg BID PO 02/26/18 20:00 03/28/18 19:59 02/27/18 08:26 7.5 MG Buspirone HCl (Buspar Tab) 7.5 mg 1030 ONCE PO 02/26/18 10:30 02/26/18 10:31 DC 02/26/18 11:13 7.5 MG (Nohemi Nash CRNP) Objective Vital Signs Date Time Temp Pulse Resp B/P (MAP) Pulse Ox O2 Delivery O2 Flow Rate FiO2 02/27/18 08:00 Room Air 02/27/18 06:39 36.7 89 18 121/86 (98) 97 Room Air 130/101 (111) 130/98 (109) 02/26/18 23:50 Room Air 02/26/18 19:13 36.5 105 20 122/86 (98) 96 Room Air 02/26/18 16:50 112 20 119/89 (99) 99 Room Air 97 130/97 (108) 02/26/18 16:00 97 Room Air 02/26/18 15:54 36.0 100 18 132/92 (105) 97 Room Air 02/26/18 11:08 36.8 76 18 128/82 (97) 96 (Nohemi Nash CRNP) Physical Exam Notes: General: no distress Eyes: normal inspection, PERLL Respiratory: chest non tender, clear to auscultation, normal breath sounds, no respiratory distress, no accessory muscle use Cardiac: regular rate and rhythm, no rub or gallop, no murmur, no edema, no jvd GI/: active bowel sounds, no abd pain or tenderness, soft, distended Extremities: normal range of motion, normal strength, non tender Neuro/Psych: alert and oriented x 3, normal mood and affect Skin: normal color, dry (Nohemi Nash CRNP) Laboratory Results Last 24 Hours Test 02/26/18 16:57 02/27/18 05:59 02/27/18 08:57 Hemoglobin 10.6 g/dL 10.1 g/dL Hematocrit 30.6 % 30.2 % White Blood Count 2.53 K/uL Red Blood Count 3.39 M/uL Mean Corpuscular Volume 89.1 fL Mean Corpuscular Hemoglobin 29.8 pg Mean Corpuscular Hemoglobin Concent 33.4 g/dl RDW Standard Deviation 52.9 fL RDW Coefficient of Variation 16.8 % Platelet Count 109 K/uL Mean Platelet Volume 9.5 fL Nucleated RBC Absolute Count (auto) 0.14 K/uL Nucleated Red Blood Cells % 5.6 % Sodium Level 132 mmol/L Potassium Level 4.1 mmol/L Chloride Level 101 mmol/L Carbon Dioxide Level 24 mmol/L Anion Gap 7.0 mmol/L Blood Urea Nitrogen 30 mg/dl Creatinine 1.04 mg/dl Est Creatinine Clear Calc Drug Dose 107.7 ml/min Estimated GFR () 98.6 Estimated GFR (Non- 85.1 BUN/Creatinine Ratio 28.9 Random Glucose 119 mg/dl Calcium Level 7.1 mg/dl Prothrombin Time 13.4 SECONDS Prothromb Time International Ratio 1.3 Activated Partial Thromboplast Time 24.6 SECONDS Partial Thromboplastin Ratio 0.9 (Nohemi Nash CRNP) Assessment and Plan 48 y/o male here for 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 Dehydration, weakness, protein malnutrition--stable -Creatinine remains stable - Continue Remeron 45 mg PO hs, Decadron 6 mg PO qam and 2 mg PO qpm -Nutrition consulted. Continue Boost BID, snacks TID Malignant Ascites- -Ultrasound guided paracentesis performed 02/16, 4.6L fluid removed, 02/18 >9 K fluid removed, 02/20 4L removed, 02/23 5.4L removed, 02/25 5.5 L removed Albumin IV given after paracentesis -Albumin 2.4 - Pleurx catheter unable to be placed as patient is positive for C diff. Given how frequently the patient is requiring paracentesis I don't think he can be discharged for the weekend. Will plan for inpatient abdomnal catheter placement Wednesday per surgery. Discussed with ID and patient will only need a few days of Cdiff treatment before it is safe to perform surgery. Will order paracentesis for Wednesday. Patient will need IV albumin after depending on how much fluid is taken off - continue to encourage protein intake and Boost supplement Anxiety, depression - continue mirtazepine, will add buspirone as patient is expressing to nursing that lorazepam is not helping to ease his anxiety, continue lorazepam prn Chronic hypocalcemia - Ca 6.7 today - 8.0 when corrected for albumin - patient was changed to chewable calcium from tabs as he felt the pills were uncomfortable to swallow but may need to switch back if his calcium drifts much lower - Vitamin D increased to 2000 IUs - repeat prp am C diff colitis - stool sample positive for C diff - continue vancomycin po 250 mg qid - diarrhea improving Hypomagnesemia--stable - resolved -Continue home mag oxide 600 mg PO BID Metastatic cancer, 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 Any exceptions or clarifications are listed here: None Patient will likely have another therapeutic paracentesis on 02/27 patient is scheduled for a abdominal Pleurx catheter to help drain this at home discussions with his oncologist Dr. Hagen this week to coordinate timing of his next round of chemotherapy Documented By: Conrado Shepherd (Conrado Shepherd M.D.)
[2018-02-27] MEDS: ONDANSETRON INJ 2 MG/ML 2 ML VIAL IV PRN (12:35)
[2018-02-27 16:00] VITALS: O2SAT 97
[2018-02-27 19:49] VITALS: BP 129/92; PULSE 109; TEMP 36.4; O2SAT 97
[2018-02-27] MEDS: LORAZEPAM INJ 0.5 MG in SYRINGE 0.75 ML IV PRN (20:50)
[2018-02-27] MEDS: MIRTAZAPINE SOLTAB 15 MG PO SCH (20:51)
[2018-02-27 23:01] VITALS: BP 128/86; PULSE 106; TEMP 36.3; O2SAT 96
[2018-02-28 06:01] LABS: HEMATOCRIT 33.5 % (42-52); HEMOGLOBIN 11.1 g/dL (14.0-18.0); MEAN CELL VOLUME 90.3 fL (80-100); MEAN CORPUSCULAR HEMOGLOBIN 29.9 pg (25-34); MEAN CORPUSCULAR HGB CONC 33.1 g/dl (32-36); MEAN PLATELET VOLUME 9.2 fL (7.4-10.4); NUCLEATED RED BLOOD CELL ABS 0.26 K/uL (0-0); PLATELET COUNT 115 K/uL (130-400); RED CELL DISTRIBUTION WIDTH CV 17.3 % (11.5-14.5); RED CELL DISTRIBUTION WIDTH SD 54.3 fL (36.4-46.3); WHITE BLOOD COUNT 3.43 K/uL (4.8-10.8)
[2018-02-28] MEDS: VANCOMYCIN HCL 250 MG/5 ML SOLN PO SCH ×3 (06:21→17:18)
[2018-02-28] MEDS: RASPBERRY SYRUP 5 ML UDP PO SCH ×3 (06:21→17:14)
[2018-02-28] MEDS: CALCIUM CARBONATE 500 MG CHEWABLE PO SCH ×10 (06:21→21:28)
[2018-02-28] MEDS: METOCLOPRAMIDE HCL 10 MG TAB PO SCH ×4 (06:22→21:09)
[2018-02-28 06:37] VITALS: BMI 30.4
[2018-02-28 06:40] LABS: CALCIUM 7.4 mg/dl (8.5-10.1); CREATININE 1.13 mg/dl (0.60-1.40); POTASSIUM 4.4 mmol/L (3.5-5.1)
[2018-02-28] MEDS: PANTOprazole SOD 40 MG TAB PO SCH (08:27)
[2018-02-28] MEDS: BOOST BREEZE NUTRITION DRINK 1 BOX PO SCH ×2 (08:27→20:00)
[2018-02-28] MEDS: MONTELUKAST SOD 10 MG TAB PO SCH (08:27)
[2018-02-28] MEDS: CLOPIDOGREL BISULFATE 75 MG TAB PO SCH (08:27)
[2018-02-28] MEDS: MAGNESIUM OXIDE 400 MG TAB PO SCH ×2 (08:27→21:08)
[2018-02-28] MEDS: NYSTATIN SUSP 500,000 U/5 ML UDC PO SCH ×4 (08:28→21:08)
[2018-02-28] MEDS: DEXAMETHASONE 4 MG TAB PO SCH ×2 (08:30→21:09)
[2018-02-28] MEDS: CHOLECALCIFEROL 1000 INTER.UNIT TAB PO SCH (08:31)
[2018-02-28] MEDS: POTASSIUM CHLORIDE 20 MEQ TABCR PO SCH (08:32)
[2018-02-28] MEDS: ATORVASTATIN 10 MG TAB PO SCH (08:33)
[2018-02-28] MEDS: LACTOBACILLUS ACIDOPHILUS (FLORANEX) TAB PO SCH ×4 (08:33→21:07)
[2018-02-28] MEDS: LORATADINE 10 MG TAB PO SCH (08:34)
[2018-02-28] MEDS: ALBUMIN HUMAN 25% 12.5 GM/50 ML VIAL IV SCH ×2 (10:16→10:56)
--- NOTE | 2018-02-28 10:20 | DIAGNOSTIC IMAGING REPORT ---
PARACENTESIS UNDER ULTRASOUND GUIDANCE CLINICAL HISTORY: Malignant ascites. COMPARISON STUDY: Abdominal CT dated 02/01/2018. PROCEDURE: The risks, benefits, and alternatives to the procedure were discussed with the patient who voiced understanding. Written informed consent was obtained. Following real-time ultrasound localization of a suitable pocket of fluid in the left lower quadrant, the abdomen was prepped and draped in the usual sterile fashion. The skin and soft tissues were anesthetized with 1% lidocaine. The sheathed paracentesis was inserted and approximately 5 liters of cloudy ascitic fluid was removed by vacuum suction. The procedure was well tolerated and without immediate complication. The patient left the department in satisfactory condition. IMPRESSION: Successful ultrasound-guided paracentesis with removal of approximately 5 liters of ascitic fluid. Electronically signed by: George Hernandez M.D. 02/28/2018 10:18 AM Dictated Date/Time: 02/28/2018 10:16 AM
[2018-02-28] MEDS: LORAZEPAM 0.5 MG TAB PO PRN ×2 (10:25→17:18)
[2018-02-28 10:30] VITALS: BP 121/82; PULSE 94; TEMP 36.4; O2SAT 97
[2018-02-28 10:35] LABS: ALBUMIN 2.4 gm/dl (3.4-5.0)
[2018-02-28 11:00] VITALS: BP 110/71; PULSE 95; TEMP 36.5; O2SAT 97
[2018-02-28 11:55] VITALS: BP 113/78; PULSE 97; TEMP 36.3; O2SAT 97
[2018-02-28] MEDS: MAGNESIUM SULFATE 1GM / D5W 100 ML IV SCH ×2 (11:58→12:56)
[2018-02-28] MEDS ORDERED: NURSING VERBAL MED ORDER ONE (13:00)
--- NOTE | 2018-02-28 14:14 | Palliative Care Progress Note ---
Palliative Care Progress Note Date of Service Feb 28, 2018. Subjective Pt evaluation today including: conversation w/ patient, conversation w/ family (), physical exam, chart review Pain: none PO Intake: tolerating diet, good appetite today Voiding: no voiding problems Patient is feeling pretty well today after his paracentesis this morning. 5L fluid removed. Planning for abdominal Pleur-x placement tomorrow 03/01. Patient is insisting that his chemotherapy be done while he is here in hospital. He stated, "and if you send me home, I'll probably just come back into the emergency department so I can have it done here. I don't want to do that, but I will." Patient has no pain or discomfort. Feels better after paracentesis today. was at bedside. Review of Systems Constitutional: + weakness (improved) ENT: No trouble swallowing Respiratory: No cough, No shortness of breath, No dyspnea on exertion Cardiac: No chest pain, No edema Abdomen: No pain, No nausea, No vomiting Male : No problem reported Psychiatric: + anxiety (about going home) Objective Vital Signs Date Time Temp Pulse Resp B/P (MAP) Pulse Ox O2 Delivery O2 Flow Rate FiO2 02/28/18 11:55 36.3 97 20 113/78 (90) 97 Room Air 02/28/18 11:00 36.5 95 110/71 (84) 97 02/28/18 10:30 36.4 94 121/82 (95) 97 Room Air 02/28/18 09:05 Room Air 02/28/18 00:00 Room Air 02/27/18 23:01 36.3 106 18 128/86 (100) 96 Room Air 02/27/18 19:49 36.4 109 18 129/92 (104) 97 Room Air 02/27/18 16:00 97 Room Air Physical Exam General Appearance: no apparent distress ENT: hearing grossly normal Neck: supple, no JVD Respiratory/Chest: lungs clear, no respiratory distress, no accessory muscle use, + decreased breath sounds Cardiovascular: regular rate, rhythm, no murmur, + normal peripheral pulses Abdomen: normal bowel sounds, non tender, soft, + distended Neurologic/Psychiatric: alert, normal mood/affect, oriented x 3 Laboratory Results Last 24 Hours Test 02/28/18 05:52 White Blood Count 3.43 K/uL Red Blood Count 3.71 M/uL Hemoglobin 11.1 g/dL Hematocrit 33.5 % Mean Corpuscular Volume 90.3 fL Mean Corpuscular Hemoglobin 29.9 pg Mean Corpuscular Hemoglobin Concent 33.1 g/dl RDW Standard Deviation 54.3 fL RDW Coefficient of Variation 17.3 % Platelet Count 115 K/uL Mean Platelet Volume 9.2 fL Nucleated RBC Absolute Count (auto) 0.26 K/uL Nucleated Red Blood Cells % 7.7 % Sodium Level 133 mmol/L Potassium Level 4.4 mmol/L Chloride Level 101 mmol/L Carbon Dioxide Level 23 mmol/L Anion Gap 9.0 mmol/L Blood Urea Nitrogen 30 mg/dl Creatinine 1.13 mg/dl Est Creatinine Clear Calc Drug Dose 99.7 ml/min Estimated GFR () 89.2 Estimated GFR (Non- 77.0 BUN/Creatinine Ratio 26.1 Random Glucose 130 mg/dl Calcium Level 7.4 mg/dl Magnesium Level 1.5 mg/dl Albumin 2.4 gm/dl Assessment and Plan Problem list: Weakness Weight loss Abdominal ascites Metastatic adenocarcinoma, 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 difficile Palliative care recs: -Weakness is improved somewhat. -Had paracentesis today, 5L removed. -Abdominal pleur-x being placed tomorrow 03/01. Had sufficient treatment for C. diff for this catheter to be placed per ID. -Oncology is following to discuss plans for chemotherapy administration. Generally, it is not done as an inpatient but patient has a great deal of anxiety related to going home as he is afraid he will just become dehydrated very quickly. There were plans for him to have outpatient IV hydration as well. Patient requires a lot of education and support. -Uncertain of discharge plans at this time. Will follow as needed. Total time spent 25 minutes with >50% of time spent at bedside with patient and counseling and discussing goals of care. Palliative Performance Scale: 70 % Discharge planning: uncertain
--- NOTE | 2018-02-28 15:15 | Hospitalist Progress Note ---
Hospitalist Progress Note Date of Service Feb 28, 2018. Subjective Pt evaluation today including: conversation w/ patient, physical exam, chart review, lab review, review of inpatient medication list Pain: None PO Intake: Tolerating PO diet Voiding: no voiding problems Patient feels well following paracentesis this morning. His abdominal discomfort and shortness of breath are resolved after 5L were removed. The patient continues to voice anxiety/concern regarding going home and doing chemo as an outpatient, despite frequent assurances that that is how it is normally done and that his lab work is quite stable. He is very resistant to going home before his chemo is due this week and again wishes to have this done as an inpatient. The patient denies fevers, chills, sweats, chest pain, palpitations , claudication, cough, wheezing, shortness of breath, nausea, vomiting, abdominal pain, dysuria, hematuria, urinary retention, paralysis, weakness, numbness and tingling. Additional Comments: See HPI for pertinent positives and negatives. All other systems reviewed and negative. Objective Vital Signs Date Time Temp Pulse Resp B/P (MAP) Pulse Ox O2 Delivery O2 Flow Rate FiO2 02/28/18 11:55 36.3 97 20 113/78 (90) 97 Room Air 02/28/18 11:00 36.5 95 110/71 (84) 97 02/28/18 10:30 36.4 94 121/82 (95) 97 Room Air 02/28/18 09:05 Room Air 02/28/18 00:00 Room Air 02/27/18 23:01 36.3 106 18 128/86 (100) 96 Room Air 02/27/18 19:49 36.4 109 18 129/92 (104) 97 Room Air 02/27/18 16:00 97 Room Air Physical Exam Notes: General appearance: Well-developed, well-nourished, no apparent distress Head: Normocephalic, atraumatic Eyes: Normal inspection, PERRL, EOMI ENT: Normal ENT inspection, hearing grossly normal, pharynx normal Neck: Supple, no JVD, trachea midline Respiratory/Chest: Lungs clear to auscultation, normal breath sounds, no respiratory distress Cardiovascular: Regular rate & rhythm, no gallop, no murmur Abdomen/GI: +Distended. Normal bowel sounds, non-tender Extremities/Musculoskeletal: Normal inspection, no calf tenderness, no pedal edema Neurological/Psych: +Anxious. Alert, oriented x 3 Skin: Normal color, warm/dry, no rash Laboratory Results Last 24 Hours Test 02/28/18 05:52 White Blood Count 3.43 K/uL Red Blood Count 3.71 M/uL Hemoglobin 11.1 g/dL Hematocrit 33.5 % Mean Corpuscular Volume 90.3 fL Mean Corpuscular Hemoglobin 29.9 pg Mean Corpuscular Hemoglobin Concent 33.1 g/dl RDW Standard Deviation 54.3 fL RDW Coefficient of Variation 17.3 % Platelet Count 115 K/uL Mean Platelet Volume 9.2 fL Nucleated RBC Absolute Count (auto) 0.26 K/uL Nucleated Red Blood Cells % 7.7 % Sodium Level 133 mmol/L Potassium Level 4.4 mmol/L Chloride Level 101 mmol/L Carbon Dioxide Level 23 mmol/L Anion Gap 9.0 mmol/L Blood Urea Nitrogen 30 mg/dl Creatinine 1.13 mg/dl Est Creatinine Clear Calc Drug Dose 99.7 ml/min Estimated GFR () 89.2 Estimated GFR (Non- 77.0 BUN/Creatinine Ratio 26.1 Random Glucose 130 mg/dl Calcium Level 7.4 mg/dl Magnesium Level 1.5 mg/dl Albumin 2.4 gm/dl Diagnostic Results Reviewed the following studies and agree with interpretation as follows: PARACENTESIS UNDER ULTRASOUND GUIDANCE CLINICAL HISTORY: Malignant ascites. COMPARISON STUDY: Abdominal CT dated 02/01/2018. PROCEDURE: The risks, benefits, and alternatives to the procedure were discussed with the patient who voiced understanding. Written informed consent was obtained. Following real-time ultrasound localization of a suitable pocket of fluid in the left lower quadrant, the abdomen was prepped and draped in the usual sterile fashion. The skin and soft tissues were anesthetized with 1% lidocaine. The sheathed paracentesis was inserted and approximately 5 liters of cloudy ascitic fluid was removed by vacuum suction. The procedure was well tolerated and without immediate complication. The patient left the department in satisfactory condition. IMPRESSION: Successful ultrasound-guided paracentesis with removal of approximately 5 liters of ascitic fluid. 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 Dehydration, weakness, protein malnutrition--stable -Creatinine remains stable, at baseline -Continue Remeron 30 mg PO hs and Decadron 6 mg PO qam and 2 mg PO qpm -Nutrition consulted. Continue Boost BID, snacks TID Ascites--ongoing -Ultrasound guided paracentesis performed on 02/16, 4.6L fluid removed; on 02/18 > 9L removed; 02/20 4L removed; 02/23 5.4L removed; 02/25 5.5 L removed -Paracentesis today, 02/28, 5L removed -Therapeutic only as diagnostic studies done last week and no s/s infection now -Albumin 25 gm IV x 1 s/p paracentesis -Albumin 2.4 on 02/28, remains stable -General surgery consulted, appreciate recs: Plan for abdominal PleurX placement Wednesday. 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
[2018-02-28 16:09] VITALS: BP 132/92; PULSE 100; TEMP 36.9; O2SAT 95
[2018-02-28] MEDS: MIRTAZAPINE SOLTAB 15 MG PO SCH (21:10)
[2018-02-28] MEDS: LORAZEPAM 2 MG/ML 1 ML VIAL IV PRN (21:20)
[2018-02-28 23:23] VITALS: BP 122/87; PULSE 102; TEMP 36.4; O2SAT 97
[2018-03-01] MEDS: VANCOMYCIN HCL 250 MG/5 ML SOLN PO SCH ×4 (00:14→18:09)
[2018-03-01] MEDS: RASPBERRY SYRUP 5 ML UDP PO SCH ×4 (00:14→18:09)
[2018-03-01 06:09] LABS: HEMATOCRIT 31.5 % (42-52); HEMOGLOBIN 10.5 g/dL (14.0-18.0); MEAN CELL VOLUME 90.5 fL (80-100); MEAN CORPUSCULAR HEMOGLOBIN 30.2 pg (25-34); MEAN CORPUSCULAR HGB CONC 33.3 g/dl (32-36); MEAN PLATELET VOLUME 9.2 fL (7.4-10.4); PLATELET COUNT 102 K/uL (130-400); RED CELL DISTRIBUTION WIDTH CV 18.1 % (11.5-14.5); RED CELL DISTRIBUTION WIDTH SD 55.2 fL (36.4-46.3); WHITE BLOOD COUNT 2.21 K/uL (4.8-10.8)
[2018-03-01] MEDS ORDERED: LIDOCAINE HCL 1% 20 ML VIAL ONE (06:33)
[2018-03-01] MEDS ORDERED: FENTANYL CITRATE INJ 50 MCG/1 ML 2 ML VIAL ONE (06:38)
[2018-03-01] MEDS ORDERED: MIDAZOLAM HCL 1 MG/ML 2ML VIAL ONE (06:38)
[2018-03-01] MEDS ORDERED: LIDOCAINE HCL 2% 2 ML VIAL (20MG/ML) ONE (06:38)
[2018-03-01] MEDS ORDERED: PROPOFOL IV EMULSION 10 MG/ML 20 ML VIAL ONE (06:38)
[2018-03-01 06:46] LABS: ALBUMIN 2.3 gm/dl (3.4-5.0); CALCIUM 7.1 mg/dl (8.5-10.1); CREATININE 1.1 mg/dl (0.60-1.40); POTASSIUM 4.3 mmol/L (3.5-5.1)
[2018-03-01] MEDS ORDERED: ALBUMIN HUMAN 5% 12.5 GM/250 ML VIAL IV ONE (06:53)
--- NOTE | 2018-03-01 07:04 | History & Physical Bridge Note ---
H&P Re-Evaluation Bridge Note: I have examined the patient, reviewed the History & Physical and in the interval since the performance of the History & Physical I have noted the following changes of clinical significance: No changes noted
--- NOTE | 2018-03-01 07:04 | Surgery Progress Note ---
Surgery Progress Note Date of Service Mar 01, 2018. Subjective malignant ascites, drained yesterday. Objective Vital Signs: Date Time Temp Pulse Resp B/P (MAP) Pulse Ox O2 Delivery O2 Flow Rate FiO2 02/28/18 23:23 36.4 102 20 122/87 (99) 97 Room Air 02/28/18 16:09 36.9 100 18 132/92 (105) 95 Room Air 02/28/18 16:00 Room Air 02/28/18 11:55 36.3 97 20 113/78 (90) 97 Room Air 02/28/18 11:00 36.5 95 110/71 (84) 97 02/28/18 10:30 36.4 94 121/82 (95) 97 Room Air 02/28/18 09:05 Room Air General Appearance: WD/WN, no apparent distress Abdomen: normal bowel sounds, non tender, soft, + hernia, + pertinent finding ( fluid wave) Laboratory Results: Results Past 24 Hours Test 03/01/18 05:41 Range/Units White Blood Count 2.21 4.8-10.8 K/uL Red Blood Count 3.48 4.7-6.1 M/uL Hemoglobin 10.5 14.0-18.0 g/dL Hematocrit 31.5 42-52 % Mean Corpuscular Volume 90.5 80-100 fL Mean Corpuscular Hemoglobin 30.2 25-34 pg Mean Corpuscular Hemoglobin Concent 33.3 32-36 g/dl RDW Standard Deviation 55.2 36.4-46.3 fL RDW Coefficient of Variation 18.1 11.5-14.5 % Platelet Count 102 130-400 K/uL Mean Platelet Volume 9.2 7.4-10.4 fL Nucleated RBC Absolute Count (auto) 0.20 0-0 K/uL Nucleated Red Blood Cells % 8.9 % Sodium Level 133 136-145 mmol/L Potassium Level 4.3 3.5-5.1 mmol/L Chloride Level 101 98-107 mmol/L Carbon Dioxide Level 23 21-32 mmol/L Anion Gap 9.0 3-11 mmol/L Blood Urea Nitrogen 32 7-18 mg/dl Creatinine 1.10 0.60-1.40 mg/dl Est Creatinine Clear Calc Drug Dose 102.5 ml/min Estimated GFR () 92.2 Estimated GFR (Non- 79.5 BUN/Creatinine Ratio 29.0 10-20 Random Glucose 139 70-99 mg/dl Calcium Level 7.1 8.5-10.1 mg/dl Magnesium Level 1.7 1.8-2.4 mg/dl Albumin 2.3 3.4-5.0 gm/dl Assessment & Plan 48-year-old male with malignant ascites, and recently diagnosed C. difficile infection, on chemotherapy. Plan for abdominal pleurx catheter today risks reviewed to include but not limited to bleeding, infection, damage to surrounding structures, catheter infection or malfunction, need for future or more extensive surgery, and the risks of anesthesia
[2018-03-01] MEDS: ATORVASTATIN 10 MG TAB PO SCH (07:18)
[2018-03-01] MEDS: NYSTATIN SUSP 500,000 U/5 ML UDC PO SCH ×4 (07:18→21:01)
[2018-03-01] MEDS: CHOLECALCIFEROL 1000 INTER.UNIT TAB PO SCH (07:18)
[2018-03-01] MEDS: PANTOprazole SOD 40 MG TAB PO SCH (07:18)
[2018-03-01] MEDS: MONTELUKAST SOD 10 MG TAB PO SCH (07:18)
[2018-03-01] MEDS: BOOST BREEZE NUTRITION DRINK 1 BOX PO SCH ×2 (07:18→20:00)
[2018-03-01] MEDS: CALCIUM CARBONATE 500 MG CHEWABLE PO SCH ×9 (07:18→21:38)
[2018-03-01] MEDS: LACTOBACILLUS ACIDOPHILUS (FLORANEX) TAB PO SCH ×4 (07:18→21:05)
[2018-03-01] MEDS: DEXAMETHASONE 4 MG TAB PO SCH ×2 (07:19→21:03)
[2018-03-01] MEDS: MAGNESIUM OXIDE 400 MG TAB PO SCH ×2 (07:20→21:03)
[2018-03-01] MEDS: LORATADINE 10 MG TAB PO SCH (07:20)
[2018-03-01] MEDS: METOCLOPRAMIDE HCL 10 MG TAB PO SCH ×4 (07:20→21:05)
[2018-03-01] MEDS: POTASSIUM CHLORIDE 20 MEQ TABCR PO SCH (07:20)
[2018-03-01] MEDS ORDERED: ONDANSETRON INJ 2 MG/ML 2 ML VIAL ONE (07:36)
[2018-03-01] MEDS ORDERED: PHENYLEPHRINE 100MCG/ML 5ML SYR ONE (07:36)
[2018-03-01] MEDS ORDERED: CEFAZOLIN SOD 1 GM VIAL ONE (07:36)
[2018-03-01] MEDS ORDERED: MoRPHine SULFATE 2 MG/ML CARP IV PRN (08:00)
[2018-03-01] MEDS ORDERED: ONDANSETRON INJ 2 MG/ML 2 ML VIAL IV PRN (08:00)
[2018-03-01] MEDS ORDERED: PROMETHAZINE HCL INJ 12.5 MG in SODIUM CHLORIDE 0.9% 50ML 50 ML IV PRN (08:00)
[2018-03-01] MEDS ORDERED: EpHEDrine SULFATE INJ 50 MG/ML AMP IV PRN (08:00)
[2018-03-01] MEDS ORDERED: ATROPINE SULFATE 0.1 MG/ML 5ML SYR IV PRN (08:00)
[2018-03-01] MEDS ORDERED: SODIUM CHLORIDE 0.9% 1000ML 1,000 ML IV ONE ×2 (08:00)
--- NOTE | 2018-03-01 08:11 | [facility] Post Operative Brief Note ---
Immediate Operative Summary Operative Date Mar 01, 2018. 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
[2018-03-01] MEDS: FENTANYL CITRATE INJ 50 MCG/1 ML 2 ML VIAL IV PRN ×2 (08:22→08:28)
--- NOTE | 2018-03-01 08:23 | [facility] Operative Report ---
Operative Report Operative Date Mar 01, 2018. 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 Specimens NONE Drains Pleurx in abdomen Anesthesia General Complication(s) None Disposition Recovery Room / PACU Indications 48-year-old male with symptom that malignant ascites secondary to small bowel carcinoma requiring multiple paracentesis procedures, plan for insertion of Pleurx catheter into the abdomen. The risks of the procedure were discussed, all questions were answered, and the patient agreed to proceed with surgery as planned. Description of Procedure The patient was properly identified, consented, and taken to the operating room where he was placed in the supine position. General endotracheal anesthesia was induced. SCDs and a safety belt were placed. Preoperative antibiotics were administered. The patient's abdomen was prepped and draped in the standard sterile fashion. Surgical timeout was performed and all parties were in agreement that this was the correct patient and procedure to be performed and we continued as planned. Ultrasound was used to confirm ascites on the right side of the abdomen. Local anesthetic was injected along the skin incision inferior to the costal margin. Using real-time ultrasound guidance the peritoneum was accessed using the access needle at an oblique angle. The wire was placed and the needle was removed. A transverse skin incision was made approximately 6 cm superior and medial to the insertion site. A subcutaneous tunnel was created using a tunneling device and the Pleurx catheter was brought from the superior incision into the insertion site incision. The dilator and peel-away sheath were inserted over the wire. The catheter was then inserted through the peel-away sheath and return of chylous ascites confirmed placement into the abdomen. The skin at the insertion site was closed with 4-0 Monocryl subcuticular suture and Dermabond was placed over the wound. The catheter was secured into place with 3 -0 nylon U stitch. Sterile dressing was applied.The Pleurx was attached to the container and 1 L of ascites was drained. The patient taken to the PACU where he recovered without apparent incident. All sponge, instrument and needle counts were correct at the conclusion of the procedure. The patient tolerated the procedure well. I attest to the content of the Intraoperative Record and any orders documented therein. Any exceptions are noted below.
--- NOTE | 2018-03-01 08:45 | Anesthesiology Progress Note ---
Anesthesia Post Op Note Date & Time Mar 01, 2018 at 08:45 Vital Signs Pain Intensity: 4 Vital Signs Past 12 Hours Date Time Temp Pulse Resp B/P (MAP) Pulse Ox O2 Delivery O2 Flow Rate FiO2 03/01/18 08:40 91 14 126/94 100 Nasal Cannula 4 03/01/18 08:30 88 12 122/86 100 Oxymask 10 03/01/18 08:20 100 16 130/99 100 Oxymask 10 03/01/18 08:14 36 107 17 118/100 100 Oxymask 10 02/28/18 23:23 36.4 102 20 122/87 (99) 97 Room Air Notes Mental Status: alert / awake / arousable, participated in evaluation Pt Amnestic to Procedure: Yes Nausea / Vomiting: adequately controlled Pain: adequately controlled Airway Patency, RR, SpO2: stable & adequate BP & HR: stable & adequate Hydration State: stable & adequate Anesthetic Complications: no major complications apparent
--- NOTE | 2018-03-01 09:08 | DIAGNOSTIC IMAGING REPORT ---
KUB CLINICAL HISTORY: Post peritoneal catheter placement. COMPARISON STUDY: CT of the abdomen and pelvis February 01, 2018. FINDINGS: Peritoneal catheter tip projects over the left mid abdomen. Catheter appears intact. There are no unexpected radiopaque foreign bodies. There is no evidence for a bowel obstruction. Innumerable sclerotic skeletal lesions represent metastatic disease. IMPRESSION: Interval placement of a peritoneal catheter with tip within the left mid abdomen. Electronically signed by: Ronnie Goddard M.D. 03/01/2018 9:07 AM Dictated Date/Time: 03/01/2018 9:05 AM
[2018-03-01 09:18] VITALS: BP 134/91; PULSE 87; TEMP 36.5; O2SAT 94
[2018-03-01] MEDS: LORAZEPAM 0.5 MG TAB PO PRN ×2 (11:00→16:44)
[2018-03-01 11:32] VITALS: BP 118/79; PULSE 96; TEMP 36.3; O2SAT 96
[2018-03-01] MEDS ORDERED: ONDANSETRON 4MG OD TAB ONE (13:39)
[2018-03-01] MEDS ORDERED: NURSING VERBAL MED ORDER ONE ×2 (13:45)
[2018-03-01] MEDS ORDERED: ONDANSETRON 4MG OD TAB PO PRN (14:00)
--- NOTE | 2018-03-01 15:14 | Hospitalist Progress Note ---
Hospitalist Progress Note Date of Service Mar 01, 2018. Subjective Pt evaluation today including: conversation w/ patient, conversation w/ family , physical exam, chart review, lab review, review of studies, review of inpatient medication list Pain: Mild tenderness around catheter site PO Intake: Tolerating PO diet Voiding: no voiding problems Patient reports feeling nauseous following his procedure but denies any vomiting. He is somewhat fatigued as he did not sleep well last night. He does have some mild pain around his catheter site but is otherwise feeling well overall. The patient denies fevers, chills, sweats, chest pain, palpitations, claudication, cough, wheezing, shortness of breath, vomiting, dysuria, hematuria , urinary retention, paralysis, weakness, numbness and tingling. Additional Comments: See HPI for pertinent positives and negatives. All other systems reviewed and negative. Objective Vital Signs Date Time Temp Pulse Resp B/P (MAP) Pulse Ox O2 Delivery O2 Flow Rate FiO2 03/01/18 11:32 36.3 96 16 118/79 (92) 96 Room Air 03/01/18 09:39 Room Air 03/01/18 09:18 36.5 87 16 134/91 (105) 94 Nasal Cannula 4.0 03/01/18 09:00 88 12 131/99 97 Nasal Cannula 4 03/01/18 08:50 36.2 84 15 130/95 99 Nasal Cannula 4 03/01/18 08:40 91 14 126/94 100 Nasal Cannula 4 03/01/18 08:30 88 12 122/86 100 Oxymask 10 03/01/18 08:20 100 16 130/99 100 Oxymask 10 03/01/18 08:14 36 107 17 118/100 100 Oxymask 10 02/28/18 23:23 36.4 102 20 122/87 (99) 97 Room Air 02/28/18 16:09 36.9 100 18 132/92 (105) 95 Room Air 02/28/18 16:00 Room Air Physical Exam Notes: General appearance: Well-developed, well-nourished, no apparent distress Head: Normocephalic, atraumatic Eyes: Normal inspection, PERRL, EOMI ENT: Normal ENT inspection, hearing grossly normal, pharynx normal Neck: Supple, no JVD, trachea midline Respiratory/Chest: Lungs clear to auscultation, normal breath sounds, no respiratory distress Cardiovascular: Regular rate & rhythm, no gallop, no murmur Abdomen/GI: +Distended. Normal bowel sounds, non-tender Extremities/Musculoskeletal: Normal inspection, no calf tenderness, no pedal edema Neurological/Psych: +Anxious. Alert, oriented x 3 Skin: Normal color, warm/dry, no rash Laboratory Results Last 24 Hours Test 03/01/18 05:41 White Blood Count 2.21 K/uL Red Blood Count 3.48 M/uL Hemoglobin 10.5 g/dL Hematocrit 31.5 % Mean Corpuscular Volume 90.5 fL Mean Corpuscular Hemoglobin 30.2 pg Mean Corpuscular Hemoglobin Concent 33.3 g/dl RDW Standard Deviation 55.2 fL RDW Coefficient of Variation 18.1 % Platelet Count 102 K/uL Mean Platelet Volume 9.2 fL Nucleated RBC Absolute Count (auto) 0.20 K/uL Nucleated Red Blood Cells % 8.9 % Sodium Level 133 mmol/L Potassium Level 4.3 mmol/L Chloride Level 101 mmol/L Carbon Dioxide Level 23 mmol/L Anion Gap 9.0 mmol/L Blood Urea Nitrogen 32 mg/dl Creatinine 1.10 mg/dl Est Creatinine Clear Calc Drug Dose 102.5 ml/min Estimated GFR () 92.2 Estimated GFR (Non- 79.5 BUN/Creatinine Ratio 29.0 Random Glucose 139 mg/dl Calcium Level 7.1 mg/dl Magnesium Level 1.7 mg/dl Albumin 2.3 gm/dl Diagnostic Results Reviewed the following studies and agree with interpretation as follows: KUB CLINICAL HISTORY: Post peritoneal catheter placement. COMPARISON STUDY: CT of the abdomen and pelvis February 01, 2018. FINDINGS: Peritoneal catheter tip projects over the left mid abdomen. Catheter appears intact. There are no unexpected radiopaque foreign bodies. There is no evidence for a bowel obstruction. Innumerable sclerotic skeletal lesions represent metastatic disease. IMPRESSION: Interval placement of a peritoneal catheter with tip within the left mid abdomen. 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 Dehydration, weakness, protein malnutrition--stable -Creatinine remains stable, at baseline -Continue Remeron 30 mg PO hs and Decadron 6 mg PO qam and 2 mg PO qpm -Nutrition consulted. Continue Boost BID, snacks TID Ascites--ongoing -Ultrasound guided paracentesis performed on 02/16, 4.6L fluid removed; on 02/18 > 9L removed; 02/20 4L removed; 02/23 5.4L removed; 02/25 5.5 L removed -Paracentesis on 02/28, 5L removed -Therapeutic only as diagnostic studies done last week and no s/s infection now -Albumin 25 gm IV x 1 s/p paracentesis -Albumin remains stable -General surgery consulted, appreciate recs: Abdominal PleurX placed today, 1L ascitic fluid drained. -Case management setting up PleurX supplies w/pt's home health agency Hypomagnesemia--ongoing -Pt had been refusing magnesium supplement d/t concerns about his diarrhea, addressed this with patient -Magnesium 1.7 on 03/01, up from 1.5 -Continue home mag oxide 600 mg PO BID Metastatic cancer, likely small bowel primary -Consult oncology, appreciate recs: Goal for pt to complete chemo as outpatient -Chemo completed 02/19 -Dr. Carson to talk with patient today regarding stopping chemotherapy Chemotherapy induced pancytopenia--stable -Blood counts stable -Continue to monitor, appreciate heme/onc recs HTN, HLD, recent CVA 10/19/17--stable -Continue Lipitor 10 mg PO qd -Resume Plavix DVT prophylaxis -Resume Lovenox -SCDs Code Status -Level I, FULL RESUSCITATION STATUS Dispo -From home w/services. Pt's home health agency can also transition to hospice when ready -Setting up PleurX catheter supplies, pt also being given the supplies he needs to last him until they come in to his home health agency in 48 hours
[2018-03-01] MEDS: HYDROCODONE/ACETAMIN 5/325MG TAB PO PRN (17:19)
[2018-03-01 21:00] VITALS: BP 127/96; PULSE 120; TEMP 35.8; O2SAT 99
[2018-03-01] MEDS: MIRTAZAPINE SOLTAB 15 MG PO SCH (21:05)
[2018-03-01] MEDS: LORAZEPAM 2 MG/ML 1 ML VIAL IV PRN (21:07)
[2018-03-02] MEDS: VANCOMYCIN HCL 250 MG/5 ML SOLN PO SCH ×5 (00:28→23:49)
[2018-03-02] MEDS: RASPBERRY SYRUP 5 ML UDP PO SCH ×5 (00:28→23:49)
[2018-03-02] MEDS: HYDROCODONE/ACETAMIN 5/325MG TAB PO PRN (00:33)
[2018-03-02 05:47] LABS: HEMATOCRIT 30.1 % (42-52); HEMOGLOBIN 10.1 g/dL (14.0-18.0); MEAN CELL VOLUME 90.9 fL (80-100); MEAN CORPUSCULAR HEMOGLOBIN 30.5 pg (25-34); MEAN CORPUSCULAR HGB CONC 33.6 g/dl (32-36); RED CELL DISTRIBUTION WIDTH CV 18.6 % (11.5-14.5); RED CELL DISTRIBUTION WIDTH SD 57.3 fL (36.4-46.3); WHITE BLOOD COUNT 2.21 K/uL (4.8-10.8)
[2018-03-02] MEDS: CALCIUM CARBONATE 500 MG CHEWABLE PO SCH ×9 (06:15→22:00)
[2018-03-02] MEDS: METOCLOPRAMIDE HCL 10 MG TAB PO SCH ×4 (06:15→20:50)
[2018-03-02 06:22] LABS: MEAN PLATELET VOLUME 9.2 fL (7.4-10.4); NUCLEATED RED BLOOD CELL ABS 0.22 K/uL (0-0); PLATELET COUNT 86 K/uL (130-400)
[2018-03-02 07:20] VITALS: Ht 182.9 cm; Wt 101.9 kg
[2018-03-02 07:25] VITALS: BP 116/81; PULSE 100; TEMP 36.4; O2SAT 97
--- NOTE | 2018-03-02 08:35 | Hematology/Oncology Prog Note ---
Hematology/Onc Progress Note Date of Service Mar 02, 2018. 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 Juárez had a Pleurx catheter placed yesterday to help drain his ascites. He is feeling better this morning, though overall he continues to get weaker. His appetite is good this morning and he has no pain. Review of Systems: Constitutional: + weakness, + fatigue Respiratory: No cough, No shortness of breath Cardiovascular: No chest pain Abdomen: No pain, No nausea Heme: No abnormal bleeding/bruising Vital Signs Vital Signs Past 12 Hours Date Time Temp Pulse Resp B/P (MAP) Pulse Ox O2 Delivery O2 Flow Rate FiO2 03/02/18 07:25 36.4 100 18 116/81 (93) 97 03/02/18 00:30 Room Air 03/01/18 21:00 35.8 120 20 127/96 (106) 99 Room Air 03/01/18 21:00 35.8 120 20 127/96 (106) 99 Room Air Physical Exam Constitutional: Level of Distress: NAD, chronically ill Psychiatric: Mental Status: active & alert Orientation: oriented except where noted Lungs: Respiratory Effort: no dyspnea Auscuitation: breath sounds normal Cardiovascular: Heart Auscultation: RRR Abdomen: Inspection & Palpation: soft, non-distended, no tenderness, guarding & rebound Extremities: no edema Laboratory Last 24 Hours Test 03/02/18 05:30 White Blood Count 2.21 K/uL Red Blood Count 3.31 M/uL Hemoglobin 10.1 g/dL Hematocrit 30.1 % Mean Corpuscular Volume 90.9 fL Mean Corpuscular Hemoglobin 30.5 pg Mean Corpuscular Hemoglobin Concent 33.6 g/dl RDW Standard Deviation 57.3 fL RDW Coefficient of Variation 18.6 % Platelet Count 86 K/uL Mean Platelet Volume 9.2 fL Nucleated RBC Absolute Count (auto) 0.22 K/uL Nucleated Red Blood Cells % 10.2 % Platelet Estimate DECREASED Magnesium Level 1.6 mg/dl Assessment & Plan I had a very long conversation with Mr. Juárez and his cooler operator last night regarding the direction of his care. He's received 2 cycles of chemo over the last month and in that time, he has been unable to leave the hospital. He has continued to lose weight and decline physically. The frequency of his paracenteses also increased. While it can sometimes take a few months to see radiographic responses to chemotherapy, we generally expect at least some degree of clinical improvement from therapy. If anything, he has gotten persistently worse. I worry that another cycle of chemotherapy would not only be entirely ineffective but would actually shorten his life. Mr. Juárez's biggest concern was his 's knowing that he did all he could to fight his cancer and I reassured him that he has done everything asked of him and fought very hard. His disease was very aggressive from the beginning and I suspect that we would have had a similar outcome even if we had known exactly what his cancer was at the outset. I recommended he consider changing course to hospice care. After speaking with his last night, they agreed this morning. Please have the palliative care team meet with the [facility] today to make arrangements for home hospice. He will also need training on the use of his Pleurx catheter. I would be happy to be the attending of record for his hospice care. Hopefully, he will be ready to leave either later today or tomorrow. I will check back in with him later today to make sure the plans are moving forward.
[2018-03-02] MEDS: PANTOprazole SOD 40 MG TAB PO SCH (08:42)
[2018-03-02] MEDS: LACTOBACILLUS ACIDOPHILUS (FLORANEX) TAB PO SCH ×4 (08:42→20:50)
[2018-03-02] MEDS: POTASSIUM CHLORIDE 20 MEQ TABCR PO SCH (08:42)
[2018-03-02] MEDS: CHOLECALCIFEROL 1000 INTER.UNIT TAB PO SCH (08:43)
[2018-03-02] MEDS: ATORVASTATIN 10 MG TAB PO SCH (08:43)
[2018-03-02] MEDS: MONTELUKAST SOD 10 MG TAB PO SCH (08:44)
[2018-03-02] MEDS: MAGNESIUM OXIDE 400 MG TAB PO SCH ×2 (08:44→20:49)
[2018-03-02] MEDS: NYSTATIN SUSP 500,000 U/5 ML UDC PO SCH ×4 (08:44→20:48)
[2018-03-02] MEDS: LORATADINE 10 MG TAB PO SCH (08:45)
[2018-03-02] MEDS: DEXAMETHASONE 4 MG TAB PO SCH ×2 (08:45→20:50)
[2018-03-02] MEDS: BOOST BREEZE NUTRITION DRINK 1 BOX PO SCH ×2 (08:46→20:00)
[2018-03-02] MEDS: ENOXAPARIN 40 MG/0.4 ML SYR SQ SCH ×2 (08:46→09:01)
--- NOTE | 2018-03-02 09:04 | Anesthesiology Progress Note ---
Anesthesia Post Op Note Date & Time Mar 02, 2018 at 09:00 Vital Signs Pain Intensity: 6.0 Vital Signs Past 12 Hours Date Time Temp Pulse Resp B/P (MAP) Pulse Ox O2 Delivery O2 Flow Rate FiO2 03/02/18 07:25 36.4 100 18 116/81 (93) 97 03/02/18 00:30 Room Air Notes Mental Status: alert / awake / arousable, participated in evaluation Pt Amnestic to Procedure: Yes Nausea / Vomiting: adequately controlled Pain: adequately controlled Airway Patency, RR, SpO2: stable & adequate BP & HR: stable & adequate Hydration State: stable & adequate Anesthetic Complications: no major complications apparent
[2018-03-02] MEDS: LORAZEPAM 0.5 MG TAB PO PRN (09:12)
--- NOTE | 2018-03-02 10:22 | Surgery Progress Note ---
Surgery Progress Note Date of Service Mar 02, 2018. Subjective 48-year-old male with malignant ascites secondary to small bowel carcinoma, POD #1 abdominal Pleurx placement. Overall doing well, feels bloated but denies any pain. He is discussed his care with palliative care and oncology, and he is decided to forego any further treatments to go home with home health and palliative care. Objective Vital Signs: Date Time Temp Pulse Resp B/P (MAP) Pulse Ox O2 Delivery O2 Flow Rate FiO2 03/02/18 07:25 36.4 100 18 116/81 (93) 97 03/02/18 00:30 Room Air 03/01/18 21:00 35.8 120 20 127/96 (106) 99 Room Air 03/01/18 21:00 35.8 120 20 127/96 (106) 99 Room Air 03/01/18 16:00 Room Air 03/01/18 11:32 36.3 96 16 118/79 (92) 96 Room Air General Appearance: no apparent distress Abdomen: normal bowel sounds, non tender, soft, no organomegaly, no pulsatile mass, + distended (Fluid wave) Incision(s): clean, dry, intact, no erythema, no drainage Laboratory Results: Results Past 24 Hours Test 03/02/18 05:30 Range/Units White Blood Count 2.21 4.8-10.8 K/uL Red Blood Count 3.31 4.7-6.1 M/uL Hemoglobin 10.1 14.0-18.0 g/dL Hematocrit 30.1 42-52 % Mean Corpuscular Volume 90.9 80-100 fL Mean Corpuscular Hemoglobin 30.5 25-34 pg Mean Corpuscular Hemoglobin Concent 33.6 32-36 g/dl RDW Standard Deviation 57.3 36.4-46.3 fL RDW Coefficient of Variation 18.6 11.5-14.5 % Platelet Count 86 130-400 K/uL Mean Platelet Volume 9.2 7.4-10.4 fL Nucleated RBC Absolute Count (auto) 0.22 0-0 K/uL Nucleated Red Blood Cells % 10.2 % Platelet Estimate DECREASED Magnesium Level 1.6 1.8-2.4 mg/dl Assessment & Plan 48-year-old male with malignant ascites, POD #1 abdominal Pleurx placement. Ascites drainage as needed, may need 1-2 L per day. Surgery will sign off Return precautions given, call with questions or concerns Follow-up in 2 weeks general surgical clinic Call with questions or concerns
[2018-03-02 11:27] VITALS: BP 123/89; PULSE 104; TEMP 36.5; O2SAT 97
[2018-03-02] MEDS ORDERED: BACLOFEN 10 MG TAB PO PRN (11:30)
[2018-03-02] MEDS ORDERED: LORAZEPAM INJ 1 MG in SYRINGE 0.5 ML IV PRN (12:15)
--- NOTE | 2018-03-02 12:23 | Hospitalist Progress Note ---
Hospitalist Progress Note Date of Service Mar 02, 2018. Subjective Pt evaluation today including: conversation w/ patient, conversation w/ family ( and sister in law at bedside), physical exam, chart review, lab review, conversation w/ cloud consultant (spoke with oncology and palliative care), review of inpatient medication list Pain: Abdominal pain PO Intake: Tolerating PO diet Voiding: no voiding problems Patient complains of worsening hiccups, which developed yesterday after his procedure. He also complains of some mild nausea but denies vomiting. His abdomen is mildly tender around the catheter site. He states he does feel bloated and would like to be drained and also practice using the catheter. The patient denies fevers, chills, sweats, chest pain, palpitations, claudication, cough, wheezing, shortness of breath, vomiting, dysuria, hematuria, urinary retention, paralysis, weakness, numbness and tingling. Additional Comments: See HPI for pertinent positives and negatives. All other systems reviewed and negative. Objective Vital Signs Date Time Temp Pulse Resp B/P (MAP) Pulse Ox O2 Delivery O2 Flow Rate FiO2 03/02/18 11:27 36.5 104 18 123/89 (100) 97 03/02/18 09:00 Room Air 03/02/18 07:25 36.4 100 18 116/81 (93) 97 03/02/18 00:30 Room Air 03/01/18 21:00 35.8 120 20 127/96 (106) 99 Room Air 03/01/18 21:00 35.8 120 20 127/96 (106) 99 Room Air 03/01/18 16:00 Room Air Physical Exam Notes: General appearance: Well-developed, well-nourished, no apparent distress Head: Normocephalic, atraumatic Eyes: Normal inspection, PERRL, EOMI ENT: Normal ENT inspection, hearing grossly normal, pharynx normal Neck: Supple, no JVD, trachea midline Respiratory/Chest: Lungs clear to auscultation, normal breath sounds, no respiratory distress Cardiovascular: Regular rate & rhythm, no gallop, no murmur Abdomen/GI: +Distended. PleurX in RLQ. Normal bowel sounds, non-tender Extremities/Musculoskeletal: Normal inspection, no calf tenderness, no pedal edema Neurological/Psych: +Anxious. Alert, oriented x 3 Skin: Normal color, warm/dry, no rash Laboratory Results Last 24 Hours Test 03/02/18 05:30 White Blood Count 2.21 K/uL Red Blood Count 3.31 M/uL Hemoglobin 10.1 g/dL Hematocrit 30.1 % Mean Corpuscular Volume 90.9 fL Mean Corpuscular Hemoglobin 30.5 pg Mean Corpuscular Hemoglobin Concent 33.6 g/dl RDW Standard Deviation 57.3 fL RDW Coefficient of Variation 18.6 % Platelet Count 86 K/uL Mean Platelet Volume 9.2 fL Nucleated RBC Absolute Count (auto) 0.22 K/uL Nucleated Red Blood Cells % 10.2 % Platelet Estimate DECREASED Magnesium Level 1.6 mg/dl Assessment and Plan 48 y/o male with a history of HTN, HLD, recent CVA, and 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 Dehydration, weakness, protein malnutrition--stable -Creatinine remains stable, at baseline -Continue Remeron 30 mg PO hs and Decadron 6 mg PO qam and 2 mg PO qpm -Nutrition consulted. Continue Boost BID, snacks TID Ascites--ongoing -Ultrasound guided paracentesis performed on 02/16, 4.6L fluid removed; on 02/18 > 9L removed; 02/20 4L removed; 02/23 5.4L removed; 02/25 5.5 L removed -Paracentesis on 02/28, 5L removed -Therapeutic only as diagnostic studies done last week and no s/s infection now -Albumin 25 gm IV x 1 s/p paracentesis -Albumin remains stable -General surgery consulted, appreciate recs: Ascites drainage as needed, may need 1-2 L per day. F/u in 2 weeks. Surgery will sign off. -Case management setting up PleurX supplies w/pt's home health agency Hypomagnesemia--stable -Pt had been refusing magnesium supplement because of his diarrhea, discussed w/ patient and he is agreeable now to taking -Continue home mag oxide 600 mg PO BID Metastatic cancer, likely small bowel primary -Consult oncology, appreciate recs: Spoke with Dr. Carson, who had long conversation with patient yesterday about stopping chemo therapy as he continues to get worse. Recommend he goes home w/hospice today or tomorrow. -Chemo completed 02/19 -Talked w/palliative care who will revisit pt today to discuss options -Per case management, pt wants to continue w/home health at this time and then later transition to hospice as he gets weaker/declines further Chemotherapy induced pancytopenia--stable -Blood counts stable -Continue to monitor, appreciate heme/onc recs HTN, HLD, recent CVA 10/19/17--stable -Continue Lipitor 10 mg PO qd -Resume Plavix DVT prophylaxis, recent DVT -Resume Lovenox -SCDs Code Status -Level I, FULL RESUSCITATION STATUS Dispo -From home w/services. Pt's home health agency can also transition to hospice when ready -Setting up PleurX catheter supplies, pt also being given the supplies he needs to last him until they come in to his home health agency in 48 hours -Pt to be discharged tomorrow morning
--- NOTE | 2018-03-02 12:48 | Palliative Care Progress Note ---
Palliative Care Progress Note Date of Service Mar 02, 2018. Subjective Pt evaluation today including: conversation w/ patient, conversation w/ family , physical exam Pain: 4/10 abdominal pain PO Intake: moderate amount Patient was evaluated for follow up and to provide support. Patient was seen by Dr. Carson last night to discuss his prognosis and future treatment options regarding his metastatic adenocarcinoma. He was advised that he has approximately two weeks to live. The patient has multiple emotions that he, understandably, is struggling with. He has a tremendous support system from his family and we focused on his goal of returning home and focusing on QUALITY OF LIFE. Currently, the plan is for him to return home with Home Health and continue receiving abdominal taps as required based on his symptoms. We discussed transitioning to Hospice and appropriate times to consider this, which may be prompted by the Home Health agency or the family. All questions were answered to the family and support provided. Objective Vital Signs Date Time Temp Pulse Resp B/P (MAP) Pulse Ox O2 Delivery O2 Flow Rate FiO2 03/02/18 11:27 36.5 104 18 123/89 (100) 97 03/02/18 09:00 Room Air 03/02/18 07:25 36.4 100 18 116/81 (93) 97 03/02/18 00:30 Room Air 03/01/18 21:00 35.8 120 20 127/96 (106) 99 Room Air 03/01/18 21:00 35.8 120 20 127/96 (106) 99 Room Air 03/01/18 16:00 Room Air Physical Exam General Appearance: no apparent distress (sitting at the side of the bed) Respiratory/Chest: chest non-tender, lungs clear, normal breath sounds, no respiratory distress, no accessory muscle use Cardiovascular: regular rate, rhythm, no edema, no gallop, no JVD, no murmur Abdomen: + distended, + tenderness Neurologic/Psychiatric: oriented x 3 Skin: normal color, warm/dry, no rash Laboratory Results Last 24 Hours Test 03/02/18 05:30 White Blood Count 2.21 K/uL Red Blood Count 3.31 M/uL Hemoglobin 10.1 g/dL Hematocrit 30.1 % Mean Corpuscular Volume 90.9 fL Mean Corpuscular Hemoglobin 30.5 pg Mean Corpuscular Hemoglobin Concent 33.6 g/dl RDW Standard Deviation 57.3 fL RDW Coefficient of Variation 18.6 % Platelet Count 86 K/uL Mean Platelet Volume 9.2 fL Nucleated RBC Absolute Count (auto) 0.22 K/uL Nucleated Red Blood Cells % 10.2 % Platelet Estimate DECREASED Magnesium Level 1.6 mg/dl Assessment and Plan Palliative Care Encounter Weight loss Abdominal ascites Metastatic adenocarcinoma Palliative care recommendations: Patient to return home tomorrow with Home Health and transition to Hospice when ready. The patient continues to receive daily pleur-x draining. The patient has significant anxiety/depression about his transition home; however, am hopeful that with his family support, he will be able to focus on quality of life when he returns home. Palliative Performance Scale: 70 % Discharge planning: home with Hospice Counseling and Coordination Total time spent 35 minutes with > 50% of that time spent assessing the patient and discussing end-of-life GOALS OF CARE with the patient and family.
[2018-03-02] MEDS: LORAZEPAM 1 MG TAB PO PRN (13:37)
[2018-03-02 15:37] VITALS: BP 122/59; PULSE 112; TEMP 36.4; O2SAT 99
[2018-03-02] MEDS: MIRTAZAPINE SOLTAB 15 MG PO SCH (20:49)
[2018-03-03] MEDS: RASPBERRY SYRUP 5 ML UDP PO SCH ×2 (06:20→11:07)
[2018-03-03] MEDS: VANCOMYCIN HCL 250 MG/5 ML SOLN PO SCH ×2 (06:20→11:07)
[2018-03-03] MEDS: METOCLOPRAMIDE HCL 10 MG TAB PO SCH ×2 (06:21→11:09)
[2018-03-03] MEDS: CALCIUM CARBONATE 500 MG CHEWABLE PO SCH ×5 (06:21→13:26)
[2018-03-03 07:33] VITALS: BP 115/80; PULSE 105; TEMP 36.4; O2SAT 97
[2018-03-03] MEDS: ATORVASTATIN 10 MG TAB PO SCH (09:00)
[2018-03-03] MEDS: LORAZEPAM 1 MG TAB PO PRN (09:00)
[2018-03-03] MEDS: CLOPIDOGREL BISULFATE 75 MG TAB PO SCH (09:01)
[2018-03-03] MEDS: LORATADINE 10 MG TAB PO SCH (09:01)
[2018-03-03] MEDS: PANTOprazole SOD 40 MG TAB PO SCH (09:01)
[2018-03-03] MEDS: CHOLECALCIFEROL 1000 INTER.UNIT TAB PO SCH (09:01)
[2018-03-03] MEDS: DEXAMETHASONE 4 MG TAB PO SCH (09:02)
[2018-03-03] MEDS: LACTOBACILLUS ACIDOPHILUS (FLORANEX) TAB PO SCH ×2 (09:02→11:09)
[2018-03-03] MEDS: POTASSIUM CHLORIDE 20 MEQ TABCR PO SCH (09:03)
[2018-03-03] MEDS: NYSTATIN SUSP 500,000 U/5 ML UDC PO SCH ×2 (09:03→11:08)
[2018-03-03] MEDS: ENOXAPARIN 40 MG/0.4 ML SYR SQ SCH (09:04)
[2018-03-03] MEDS: MONTELUKAST SOD 10 MG TAB PO SCH (09:04)
[2018-03-03] MEDS: BOOST BREEZE NUTRITION DRINK 1 BOX PO SCH (09:04)
[2018-03-03] MEDS: MAGNESIUM OXIDE 400 MG TAB PO SCH (09:05)
[2018-03-03 10:13] LABS: HEMATOCRIT 31.7 % (42-52); HEMOGLOBIN 10.7 g/dL (14.0-18.0); MEAN CELL VOLUME 92.2 fL (80-100); MEAN CORPUSCULAR HEMOGLOBIN 31.1 pg (25-34); MEAN CORPUSCULAR HGB CONC 33.8 g/dl (32-36); NUCLEATED RED BLOOD CELL ABS 0.34 K/uL (0-0); RED CELL DISTRIBUTION WIDTH CV 19.5 % (11.5-14.5); RED CELL DISTRIBUTION WIDTH SD 59.9 fL (36.4-46.3)
[2018-03-03 10:22] LABS: MEAN PLATELET VOLUME 9.8 fL (7.4-10.4); PLATELET COUNT 78 K/uL (130-400)
--- NOTE | 2018-03-03 11:02 | Palliative Care Progress Note ---
Palliative Care Progress Note Date of Service Mar 03, 2018. Subjective Pt evaluation today including: conversation w/ patient, conversation w/ family , physical exam, chart review, conversation w/ eyewear consultant Patient is awake, alert and oriented today. He is concerned that he had a large , "messy" bowel movement this morning. He had reported to Dr. Carson that it was black, he did not report this to me. The professional nursing tutor who helped patient clean up the bowel movement stated it was brown. Hgb stable at 10.6. Patient was tearful. We had an extensive conversation about goals of care, hospice, POLST form, and CODE STATUS. Patient is fearful of going home as he feels he is going to continue to decline and is worried about being a burden on his . was present and reassured patient that it was okay to go home and she preferred it to be with hospice. Long discussion and patient decided to be DNR and to go home with hospice. POLST completed. Review of Systems Constitutional: + weakness ENT: No trouble swallowing Respiratory: No cough, No shortness of breath Cardiac: No chest pain, No edema Abdomen: No pain, No nausea, No vomiting Male : No problem reported Psychiatric: No anxiety Objective Vital Signs Date Time Temp Pulse Resp B/P (MAP) Pulse Ox O2 Delivery O2 Flow Rate FiO2 03/03/18 09:00 Room Air 03/03/18 07:33 36.4 105 18 115/80 (92) 97 Room Air 03/03/18 00:05 Room Air 03/02/18 16:00 Room Air 03/02/18 15:37 36.4 112 20 122/59 (80) 99 Room Air 03/02/18 11:27 36.5 104 18 123/89 (100) 97 Physical Exam General Appearance: no apparent distress ENT: hearing grossly normal Neck: supple, no JVD Respiratory/Chest: lungs clear, no respiratory distress, no accessory muscle use Cardiovascular: regular rate, rhythm, no edema, + normal peripheral pulses Abdomen: normal bowel sounds, non tender, soft Neurologic/Psychiatric: alert, normal mood/affect, oriented x 3 Skin: normal color Laboratory Results Last 24 Hours Test 03/03/18 10:03 White Blood Count 3.60 K/uL Red Blood Count 3.44 M/uL Hemoglobin 10.7 g/dL Hematocrit 31.7 % Mean Corpuscular Volume 92.2 fL Mean Corpuscular Hemoglobin 31.1 pg Mean Corpuscular Hemoglobin Concent 33.8 g/dl RDW Standard Deviation 59.9 fL RDW Coefficient of Variation 19.5 % Platelet Count 78 K/uL Mean Platelet Volume 9.8 fL Nucleated RBC Absolute Count (auto) 0.34 K/uL Nucleated Red Blood Cells % 9.4 % Assessment and Plan Problem list: Weakness Weight loss Abdominal ascites Metastatic adenocarcinoma, 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 difficile Palliative care recs: -Lengthy discussion today with patient, his Olesya Juárez, and his step daughter. Patient had talk with Dr. Crason on Wednesday and it was decided that patient will no receive further chemotherapy. -Patient would like to be DNR/DNI. -POLST form completed: DNR, limited additional interventions, abx with comfort as the goal, trial period of IVF, but no feeding tube. -Patient would like to go home with hospice. We discussed in detail about the services hospice provides and their goal. Patient and agree. -ORder Roxanol and lorazepam for home as needed. Hospitalist will do. Total time spent 65 minutes with >50% of time spent at bedside with patient and counseling and discussing goals of care, CODE STATUS and completing POLST form. Palliative Performance Scale: 70 % Discharge planning: home with Hospice
[2018-03-03 11:17] VITALS: BP 112/80; PULSE 108; TEMP 35.8; O2SAT 98
[2018-03-03] MEDS ORDERED: ATV1 PO (11:51)
[2018-03-03] MEDS ORDERED: HYDR-5688 PO (11:51)
--- NOTE | 2018-03-03 12:11 | Discharge Instructions ---
Discharge Instructions Date of Service Mar 03, 2018. Admission Reason for Admission: Ascites,Dehydration Discharge Discharge Diagnosis / Problem: Ascites, metastatic cancer Discharge Goals Goal(s): Decrease discomfort, Learn about illness, Therapeutic intervention Activity Recommendations Activity Limitations: resume your previous activity . Instructions / Follow-Up Instructions / Follow-Up You were admitted with recurrent malignant ascites and dehydration, eventually requiring paracentesis every other day. It was decided to place an indwelling abdominal catheter to allow for daily drainage of your ascites/fluid due to its fast accumulation rate in order to help alleviate your symptoms. This will be managed at home per your training. Home hospice has been set up and the supplies you need are ready. You have been provided prescriptions for your comfort medications, and these can be renewed via hospice. If you run into problems, CONTACT YOUR HOSPICE AGENCY FIRST. They will be able to manage most things at home. Medications: *You may take [place] (hydrocodone/acetaminophen) 5/325 mg 1 tablet every 4 hours as needed for pain. *Your Ativan has been increased to 1 mg every 6 hours as needed for anxiety. *You may continue your Reglan, Zofran, and Imodium. *Your other home medications have been discontinued. Follow up: *The hospice agency will meet you at home and you will be followed by them. Current Hospital Diet Patient's current hospital diet: Regular Diet Discharge Diet Recommended Diet: Regular Diet Procedures Procedures Performed: Abdominal Pleurex Catheter Insertion Pending Studies Studies pending at discharge: no Medical Emergencies . Who to Call and When: Medical Emergencies: If at any time you feel your situation is an emergency, please call 911 immediately. . Non-Emergent Contact Non-Emergency issues call your: Primary Care Provider (hospice agency), Oncologist . Past History Medical & Surgical History: (1) Cancer, metastatic (2) Ascites . "Provider Documentation" section prepared by Shyla Mack. . [place] Drug Monitoring Program Search Results: patient reviewed within database, no issues identified
[2018-03-03 13:29] VITALS: BP 112/80; PULSE 108; TEMP 36.4; O2SAT 98
--- NOTE | 2018-03-03 14:09 | Discharge Summary ---
Discharge Summary Date of Service Mar 03, 2018. Discharge Summary Admission Date: Feb 16, 2018 at 11:51 Discharge Date: Mar 03, 2018 Discharge Disposition: Home with services (home hospice) Principal Diagnosis: Malignant ascites Problems/Secondary Diagnoses: Dehydration, weakness, protein malnutrition, hypomagnesemia, chemo induced pancytopenia, HTN, HLD, recent CVA, and metastatic cancer (likely small bowel primary) Immunizations: Have You Had Influenza Vaccine: Unknown History of Tetanus Vaccine?: Unknown History of Pneumococcal: Unknown History of Hepatitis B Vaccine: Unknown Procedures: Immediate Operative Summary Operative Date Mar 01, 2018. 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 Post-Operative Diagnosis Malignant Ascites Secondary to Metastatic Small Bowel Carcinoma Procedure(s) Performed Abdominal Pleurex Catheter Insertion Surgeon Dr May Nurse Aide Evaluator Surgeon(s) None Estimated Blood Loss 1CC Findings Consistent with Post-Op Diagnosis 1 liter of ascites drained Specimens NONE Drains Pleurx in abdomen Anesthesia Type General Complication(s) none Consultations: Hematology/oncology General surgery Palliative care Medication Reconciliation New Medications: Hydrocodone/Acetaminophen 5MG/325MG ([place] 5MG/325MG) Tab 1 TAB PO Q4H PRN for Pain for 3 Days, #18 TAB PRN PAIN Lorazepam (Lorazepam) 1 Mg Tab 1 MG PO Q6H PRN for Anxiety for 3 Days, #12 TAB Continued Medications: Loperamide Hcl (Imodium) 2 Mg Cap 2 MG PO QID PRN for Diarrhea, #160 CAP Take as needed for symptom management Metoclopramide (Reglan) 10 Mg Tab 10 MG PO ACHS, #30 TAB Ondansetron Hcl (Zofran) 4 Mg Tab 4 MG PO UD PRN for Nausea for 30 Days, #120 TAB take as needed for nausea Discontinued Medications: Atorvastatin (Lipitor) 10 Mg Tab 10 MG PO DAILY Calcium Carbonate (Oyster Shell Calcium) 1,250 Mg Tab 1250 MG PO Q2HWA for 30 Days, #120 TAB Cholecalciferol (Vitamin D3) 1,000 Inter.unit Tab 2000 INTER.UNIT PO QAM, #60 TAB Please take 2 per day Clopidogrel (Plavix) 75 Mg Tab 75 MG PO DAILY, TAB Dexamethasone (Dexamethasone) 4 Mg Tab 4 MG PO UD, #60 TAB take 1.5 (6mg) pills in the a.m. and 0.5 mg (2mg) Enoxaparin (Enoxaparin Sodium) 40 Mg/0.4 Ml Inj 40 MG SQ Q24H for 30 Days Ergocalciferol (Drisdol) 50,000 Unit Cap 1 TAB PO WK, #4 TAB 3 Refills Loratadine (Claritin) 10 Mg Tab 10 MG PO DAILY, TAB Lorazepam (Lorazepam) 0.5 Mg Tab 0.5 MG PO Q4 PRN for Anxiety, #60 TAB Take as needed for anxiety Magnesium Oxide (Magnesium-Oxide) 400 Mg Tab 600 MG PO BID, #60 TAB Methylphenidate HCl (Methylphenidate HCl) 5 Mg Tab 5 MG PO UD PRN for Psychomotor retardation MDD 10 mg, #30 TAB Take only as needed for low energy. 1 pill in the morning and 1 pill in around lunch time. Take at least 1 hour after decadron. Stop taking if appetite supression is noticed Mirtazapine (Remeron) 30 Mg Tab 1 TAB PO HS for 30 Days, #30 TAB 1 Refill Montelukast Sodium (Singulair) 10 Mg Tab 10 MG PO DAILY, TAB Pantoprazole (Protonix) 40 Mg Tab 40 MG PO DAILY, #30 TAB Potassium Chloride (Klor-Con M20) 20 Meq Tabcr 40 MEQ PO QAM, #30 [Boost Nutritional Drink] () 1 BOX LIQD 1 BOX PO BID Discharge Exam Patient complains of abdominal fullness and notes that he is ready for his daily drain. He has some soreness in his abdomen around the catheter. He feels anxious about returning home, reassurance given. The patient denies fevers, chills, sweats, chest pain, palpitations, claudication, cough, wheezing , shortness of breath, nausea, vomiting, dysuria, hematuria, urinary retention, paralysis, weakness, numbness and tingling. Constitutional: No fever, No chills, No sweats Eyes: No worsening of vision, No eye pain, No diplopia ENT: No hearing loss, No nasal symptoms, No trouble swallowing Respiratory: No cough, No wheezing, No shortness of breath Cardiovascular: No chest pain, No claudication, No palpitations Abdomen: +Abdominal pain. No nausea, No vomiting Musculoskeletal: No joint pain, No muscle pain, No swelling Genitourinary - Male: No dysuria, No urinary retention, No hematuria Neurologic: No paralysis, No weakness, No numbness/tingling Integumentary: No rash, No itch, No color change General appearance: Well-developed, well-nourished, no apparent distress Head: Normocephalic, atraumatic Eyes: Normal inspection, PERRL, EOMI ENT: Normal ENT inspection, hearing grossly normal, pharynx normal Neck: Supple, no JVD, trachea midline Respiratory/Chest: Lungs clear to auscultation, normal breath sounds, no respiratory distress Cardiovascular: Regular rate & rhythm, no gallop, no murmur Abdomen/GI: +Distended. PleurX in RLQ. Umbilical hernia. Normal bowel sounds , non-tender Extremities/Musculoskeletal: Normal inspection, no calf tenderness, no pedal edema Neurological/Psych: +Anxious. Alert, oriented x 3 Skin: Normal color, warm/dry, no rash Hospital Course 48 y/o male with a history of HTN, HLD, recent CVA, and 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 Dehydration, weakness, protein malnutrition--stable -Nutritional status, renal function has remained stable this admission -Pt going home on hospice, will d/c Decadron, Remeron, and Boost Ascites--ongoing -Ultrasound guided paracentesis performed on 02/16, 4.6L fluid removed; on 02/18 > 9L removed; 02/20 4L removed; 02/23 5.4L removed; 02/25 5.5 L removed -Paracentesis on 02/28, 5L removed -Therapeutic only as diagnostic studies done last week and no s/s infection now -Albumin 25 gm IV x 1 s/p paracentesis -General surgery consulted, appreciate recs: Abdominal PleurX for recurrent malignant ascites placed 03/01. Ascites drainage as needed, may need 1-2 L per day. F/u in 2 weeks. Surgery will sign off. -Case management set up PleurX supplies w/pt's home hospice agency, pt has practiced using PleurX twice prior to discharge Hypomagnesemia--stable -Going home on hospice, magnesium supplement d/c'd Metastatic cancer, likely small bowel primary--worsening -Consult oncology, appreciate recs: No further chemotherapy as pt has continued to get worse and at this point no benefit. Recommend going home with hospice. -Chemo completed 8/4 -Spoke with palliative care who talked with patient again and filled out POLST. Pt now agrees to DNR and going home w/hospice -Will stop nonessential meds, continue meds for comfort such as [place], Ativan, anti-emetics and anti-diarrheals -Dr. Carson agreeable to being attending of record for hospice care Chemotherapy induced pancytopenia--stable -Blood counts stable, improving now after chemo stopped -Continue to monitor, appreciate heme/onc recs HTN, HLD, recent CVA 10/19/17--stable -D/C Plavix, statin DVT prophylaxis, recent DVT -D/C Lovenox. Pt had been refusing anyway -SCDs Code Status -Level I, FULL RESUSCITATION STATUS Dispo -From home w/services -Pt set up with home hospice, sent with enough PleurX supplies to last two days Total Time Spent: Greater than 30 minutes This includes examination of the patient, discharge planning, medication reconciliation, and communication with other providers. Discharge Instructions Please refer to the electronic Patient Visit Report (Discharge Instructions) for additional information. Additional Copies To Teresa Beck,
== END 2018-03-03 14:13 | disposition hospice, home (50) | DRG 374 ==
LOC: C.EDB 09:52 → C.4E 10:34 → ENRESERV 11:02 → OBSVTOIN 02-16 11:51
PROVIDERS: ADMIT Internal Medicine; ATTEND Nurse Practitioner Family
PROC: 0W9G3ZZ Drainage of Peritoneal Cavity, Percutaneous Approach (ICD-10-PCS; principal; 2018-02-18)
PROC: 0W9G3ZZ Drainage of Peritoneal Cavity, Percutaneous Approach (ICD-10-PCS; 2018-02-20)
PROC: 0W9G30Z Drainage of Peritoneal Cavity with Drainage Device, Percutaneous Approach (ICD-10-PCS; 2018-03-01)
DX: C17.9 Malignant neoplasm of small intestine, unspecified (principal); D61.810 Antineoplastic chemotherapy induced pancytopenia; A04.72 Enterocolitis due to Clostridium difficile, not specified as recurrent; R18.0 Malignant ascites; E46 Unspecified protein-calorie malnutrition; J91.0 Malignant pleural effusion; E83.42 Hypomagnesemia; E86.0 Dehydration; E87.5 Hyperkalemia; I10 Essential (primary) hypertension; R53.1 Weakness; Z51.5 Encounter for palliative care; Z79.02 Long term (current) use of antithrombotics/antiplatelets; Z79.899 Other long term (current) drug therapy; Z88.2 Allergy status to sulfonamides; E83.51 Hypocalcemia